=== PATIENT | male | born 1960 | race Caucasian/White ===

== ENCOUNTER 2022-11-11 16:35 | Inpatient (IN) | payer OTHER, MEDICARE ==
[2022-11-11] MEDS ORDERED: HEPARIN SODIUM 1,000 UN/ML (10ML VL) IV ONE (17:25)
--- NOTE | 2022-11-11 17:25 | ED ---
General Adult HPI - General Source: patient, EMS Mode of arrival: EMS Limitations: no limitations <Johnny Vargas - Last Filed: 11/21/22 15:48> <Ayo Ugalde - Last Filed: 11/21/22 21:27> - General Chief complaint: Nausea/Vomiting/Diarrhea Stated complaint: AFib,RBR,Back Pain Time Seen by Provider: 11/11/22 16:53 - History of Present Illness Initial comments: 62-year-old male past medical history significant for hypertension, A. fib, chronic back pain, and mechanical heart valve on Coumadin was seen at [facility] prior to arrival. Patient was seen due to nausea, vomiting, and chronic back pain. She states that he has been unable to keep anything down, including his medications. There are found his INR to be subtherapeutic at 1.3, hyponatremia 124, and hypomagnesemia at 1.1, troponin 0.046, d-dimer 2.04. During patient's stay patient also went into A. fib with RVR.. Patient rate controlled with metoprolol. Magnesium was repleted there. CT of the abdomen showed cholelithiasis without evidence of cholecystitis, hiatal hernia, in no acute process. CT PE showed no evidence of PE. Patient was then transferred here for further treatment/evaluation. Patient provided me taclopamide there. Currently denies any nausea. Complains of some abdominal pain and back pain. Denies chest pain or shortness of breath. No other complaints. (Johnny Vargas) - Related Data Home Medications Medication Instructions Recorded Confirmed Aspirin [Children's Aspirin] 81 mg PO DAILY 11/11/22 11/11/22 Lansoprazole 15 mg PO DAILY 11/11/22 11/11/22 Metoprolol Tartrate [Lopressor] 75 mg PO BID 11/11/22 11/11/22 Omeprazole 20 mg PO DAILY 11/11/22 11/11/22 Warfarin [Coumadin] 7.5 mg PO MOWEFRSA 11/11/22 11/11/22 Warfarin [Coumadin] 10 mg PO SUTUTH 11/11/22 11/11/22 amLODIPine [Norvasc] 5 mg PO DAILY 11/11/22 11/11/22 Previous Rx's Medication Instructions Recorded Albuterol Inhaler [Ventolin Hfa 2 puff INHALATION Q6H PRN #1 each 11/18/22 Inhaler] Thiamine [Vitamin B-1] 100 mg PO DAILY #30 tab 11/18/22 Allergies Allergy/AdvReac Type Severity Reaction Status Date / Time propoxyphene Allergy Rash/Hives Verified 11/11/22 19:15 [From Darvocet-N 100] acetaminophen AdvReac Rash/Hives Verified 11/11/22 19:01 [From Darvocet-N 100] amitriptyline [From Elavil] AdvReac NIGHTMARES Verified 11/11/22 19:15 hydralazine AdvReac MIGRAINES Verified 11/11/22 19:15 naproxen [From Naprosyn] AdvReac Nausea Verified 11/11/22 19:15 Review of Systems ROS Other: All systems not noted in ROS Statement are negative. <Johnny Vargas - Last Filed: 11/21/22 15:48> ROS Other: All systems not noted in ROS Statement are negative. <Ayo Ugalde - Last Filed: 11/21/22 21:27> ROS Statement: Those systems with pertinent positive or pertinent negative responses have been documented in the HPI. Past Medical History Past Medical History: Atrial Fibrillation, Coronary Artery Disease (CAD), Hypertension Additional Past Medical History / Comment(s): chronic lower back pain, History of Any Multi-Drug Resistant Organisms: None Reported Past Surgical History: Cardiac Valve Replacement, Coronary Bypass/CABG Additional Past Surgical History / Comment(s): right knee, jaw Past Psychological History: No Psychological Hx Reported Smoking Status: Former smoker Past Alcohol Use History: Daily Past Drug Use History: Marijuana <Johnny Vargas - Last Filed: 11/21/22 15:48> General Exam Limitations: no limitations General appearance: alert, in no apparent distress Respiratory exam: Present: normal lung sounds bilaterally Cardiovascular Exam: Present: regular rate, irregular rhythm GI/Abdominal exam: Present: soft (Diffuse tenderness to palpation) Neurological exam: Present: alert, oriented X3 Psychiatric exam: Present: normal affect, normal mood Skin exam: Present: warm, dry <Johnny Vargas - Last Filed: 11/21/22 15:48> Course Vital Signs 11/11/22 11/11/22 11/11/22 16:38 18:06 20:00 Temperature 97.1 F L Pulse Rate 77 98 112 H Pulse Rate [ Pulse Oximetery ] Respiratory 18 18 18 Rate Blood Pressure 109/77 120/82 121/96 Blood Pressure [Right Arm] O2 Sat by Pulse 99 97 97 Oximetry 11/11/22 11/11/22 21:44 21:48 Temperature 99.9 F H Pulse Rate 128 H Pulse Rate [ 92 Pulse Oximetery ] Respiratory 18 18 Rate Blood Pressure 138/83 Blood Pressure 151/73 [Right Arm] O2 Sat by Pulse 94 L 95 Oximetry Medical Decision Making - Lab Data Result diagrams: 11/16/22 05:09 11/17/22 04:55 <Johnny Vargas - Last Filed: 11/21/22 15:48> - Lab Data Result diagrams: 11/16/22 05:09 11/17/22 04:55 <Ayo Ugalde - Last Filed: 11/21/22 21:27> - Medical Decision Making Was pt. sent in by a medical professional or institution (Dr. PA, REGIONAL AGRONOMIST, urgent care, hospital, or retirement...) When possible be specific @ -Patient sent in by [facility] Did you speak to anyone other than the patient for history (EMS, parent, family, police, friend...)? What history was obtained from this source @ -No Did you review nursing and triage notes (agree or disagree)? Why? @ -I reviewed and agree with nursing and triage notes Were old charts reviewed (outside hosp., previous admission, EMS record, old EKG, old radiological studies, urgent care reports/EKG's, retirement records)? Report findings @ -Visit from [place] reviewed. Please see HPI for significant findings. Differential Diagnosis (chest pain, altered mental status, abdominal pain women, abdominal pain men, vaginal bleeding, weakness, fever, dyspnea, syncope, headache, dizziness, GI bleed, back pain, seizure, CVA, palpatations, mental health, musculoskeletal)? @ -Differential Palpitations Ventricular arrhythmias, atrial arrhythmias, myocardial infarction, anemia, thyrotoxicosis, electrolyte imbalance, hypokalemia, pulmonary embolism, pulmonary disease, drugs, alcohol, anxiety, stress.... This is not meant to be an all-inclusive list. EKG interpreted by me (3pts min.). @ -EKG shows A. fib without acute ST or T-wave changes name of beats per minute. QRS 106. QT/QTc 382/430. X-rays interpreted by me (1pt min.). @ -None done CT interpreted by me (1pt min.). @ -None done U/S interpreted by me (1pt. min.). @ -None done What testing was considered but not performed or refused? (CT, X-rays, U/S, labs)? Why? @ -None What meds were considered but not given or refused? Why? @ -None Did you discuss the management of the patient with other professionals (professionals i.e. , PA, REGIONAL AGRONOMIST, lab, RT, psych nurse, case management social worker, printer slotter operator, teacher, gunnery/ordnance officer, supervisor case loading)? Give summary @ -Discussed with Ysabel BOWMAN, who accepts admission to Dr. Dorado Was smoking cessation discussed for >3mins.? @ -No Was critical care preformed (if so, how long)? @ -No Were there social determinants of health that impacted care today? How? (Homelessness, low income, unemployed, alcoholism, drug addiction, transportation, low edu. Level, literacy, decrease access to med. care, snf, rehab)? @ -No Was there de-escalation of care discussed even if they declined (Discuss DNR or withdrawal of care, Hospice)? DNR status @ -No What co-morbidities impacted this encounter? (DM, HTN, Smoking, COPD, CAD, Cancer, CVA, ARF, Chemo, Hep., AIDS, mental health diagnosis, sleep apnea, morbid obesity)? @ -A. fib Was patient admitted / discharged? Hospital course, mention meds given and route, prescriptions, significant lab abnormalities, going to OR and other pertinent info. @ -Admission. Patient will be admitted for heparin administration to bring INR to therapeutic levels. Also admitted for continued pain control and antiemetics. Discussed plan of care with patient who is in agreement. Undiagnosed new problem with uncertain prognosis? @ -No Drug Therapy requiring intensive monitoring for toxicity (Heparin, Nitro, Insulin, Cardizem)? @ -Heparin Were any procedures done? @ -No Diagnosis/symptom? @ -A. fib, subtherapeutic INR. Acute, or Chronic, or Acute on Chronic? @ -Acute on chronic Uncomplicated (without systemic symptoms) or Complicated (systemic symptoms)? @ -Complicated, prior to arrival was in A. fib with RVR. Side effects of treatment? @ -No Exacerbation, Progression, or Severe Exacerbation? @ -No Poses a threat to life or bodily function? How? (Chest pain, [place], AR, pneumonia, PE, COPD, DKA, ARF, appy, cholecystitis, CVA, Diverticulitis, Homicidal, Suicidal, threat to staff... and all critical care pts) @ -Yes, A. fib with RVR ([email or web address]) - Lab Data Lab Results 11/11/22 11/11/22 11/11/22 Range/Units 17:10 17:10 17:10 WBC 6.6 (3.8-10.6) k/uL RBC 4.84 (4.30-5.90) m/uL Hgb 14.2 (13.0-17.5) gm/dL Hct 41.3 (39.0-53.0) % MCV 85.2 (80.0-100.0) fL MCH 29.4 (25.0-35.0) pg MCHC 34.5 (31.0-37.0) g/dL RDW 13.6 (11.5-15.5) % Plt Count 132 L (150-450) k/uL Estimated Plt Count (Adequate) MPV 7.8 Immature Gran % (Auto) % Absolute Nucleated RBC % Neutrophils % 87 % Lymphocytes % 7 % Monocytes % 4 % Eosinophils % 1 % Basophils % 0 % Immature Gran # X 10*3/uL Neutrophils # 5.8 (1.3-7.7) k/uL Lymphocytes # 0.4 L (1.0-4.8) k/uL Monocytes # 0.3 (0-1.0) k/uL Eosinophils # 0.1 (0-0.7) k/uL Basophils # 0.0 (0-0.2) k/uL NRBC/100 WBC Diff (0.00-0.01) X 10*3/uL Manual Slide Review RBC Morphology (Normal) PT 11.9 (9.0-12.0) sec INR 1.2 H (<1.2) APTT 34.4 H (22.0-30.0) sec Sodium 127 L (137-145) mmol/L Potassium 3.9 (3.5-5.1) mmol/L Chloride 93 L (98-107) mmol/L Carbon Dioxide 24 (22-30) mmol/L Anion Gap 10 mmol/L BUN 13 (9-20) mg/dL Creatinine 0.82 (0.66-1.25) mg/dL Est GFR (CKD-EPI) (>=60) Est GFR (CKD-EPI)AfAm >90 (>60 ml/min/1.73 sqM) Est GFR (CKD-EPI)NonAf >90 (>60 ml/min/1.73 sqM) BUN/Creatinine Ratio (12.00-20.00) Ratio Glucose 112 H (74-99) mg/dL Calcium 8.6 (8.4-10.2) mg/dL Magnesium 2.2 (1.6-2.3) mg/dL Total Bilirubin 2.7 H (0.2-1.3) mg/dL AST 47 (17-59) U/L ALT 33 (4-49) U/L Alkaline Phosphatase 57 (38-126) U/L Troponin I (0.000-0.034) ng/mL Total Protein 6.9 (6.3-8.2) g/dL Albumin 4.1 (3.5-5.0) g/dL Amylase 40 (30-110) U/L Lipase 115 (23-300) U/L Procalcitonin (0.02-0.09) ng/mL Urine Color Urine Appearance (Clear) Urine pH (5.0-8.0) Ur Specific Kathryn (1.001-1.035) Urine Protein (Negative) Urine Glucose (UA) (Negative) Urine Ketones (Negative) Urine Blood (Negative) Urine Nitrite (Negative) Urine Bilirubin (Negative) Urine Urobilinogen (<2.0) mg/dL Ur Leukocyte Esterase (Negative) Coronavirus (PCR) (Not Detectd) 11/11/22 11/11/22 11/11/22 Range/Units 17:10 20:27 23:22 WBC (3.8-10.6) k/uL RBC (4.30-5.90) m/uL Hgb (13.0-17.5) gm/dL Hct (39.0-53.0) % MCV (80.0-100.0) fL MCH (25.0-35.0) pg MCHC (31.0-37.0) g/dL RDW (11.5-15.5) % Plt Count (150-450) k/uL Estimated Plt Count (Adequate) MPV Immature Gran % (Auto) % Absolute Nucleated RBC % Neutrophils % % Lymphocytes % % Monocytes % % Eosinophils % % Basophils % % Immature Gran # X 10*3/uL Neutrophils # (1.3-7.7) k/uL Lymphocytes # (1.0-4.8) k/uL Monocytes # (0-1.0) k/uL Eosinophils # (0-0.7) k/uL Basophils # (0-0.2) k/uL NRBC/100 WBC Diff (0.00-0.01) X 10*3/uL Manual Slide Review RBC Morphology (Normal) PT (9.0-12.0) sec INR (<1.2) APTT 35.4 H (22.0-30.0) sec Sodium (137-145) mmol/L Potassium (3.5-5.1) mmol/L Chloride (98-107) mmol/L Carbon Dioxide (22-30) mmol/L Anion Gap mmol/L BUN (9-20) mg/dL Creatinine (0.66-1.25) mg/dL Est GFR (CKD-EPI) (>=60) Est GFR (CKD-EPI)AfAm (>60 ml/min/1.73 sqM) Est GFR (CKD-EPI)NonAf (>60 ml/min/1.73 sqM) BUN/Creatinine Ratio (12.00-20.00) Ratio Glucose (74-99) mg/dL Calcium (8.4-10.2) mg/dL Magnesium (1.6-2.3) mg/dL Total Bilirubin (0.2-1.3) mg/dL AST (17-59) U/L ALT (4-49) U/L Alkaline Phosphatase (38-126) U/L Troponin I 0.024 0.019 (0.000-0.034) ng/mL Total Protein (6.3-8.2) g/dL Albumin (3.5-5.0) g/dL Amylase (30-110) U/L Lipase (23-300) U/L Procalcitonin (0.02-0.09) ng/mL Urine Color Urine Appearance (Clear) Urine pH (5.0-8.0) Ur Specific Kathryn (1.001-1.035) Urine Protein (Negative) Urine Glucose (UA) (Negative) Urine Ketones (Negative) Urine Blood (Negative) Urine Nitrite (Negative) Urine Bilirubin (Negative) Urine Urobilinogen (<2.0) mg/dL Ur Leukocyte Esterase (Negative) Coronavirus (PCR) (Not Detectd) 11/11/22 11/12/22 11/12/22 Range/Units 23:22 05:29 05:29 WBC 6.43 (3.8-10.6) k/uL RBC 4.31 L (4.30-5.90) m/uL Hgb 12.4 (13.0-17.5) gm/dL Hct 36.0 L (39.0-53.0) % MCV 83.5 (80.0-100.0) fL MCH 28.8 (25.0-35.0) pg MCHC 34.4 (31.0-37.0) g/dL RDW 13.3 (11.5-15.5) % Plt Count 133 L (150-450) k/uL Estimated Plt Count (Adequate) MPV 11.0 Immature Gran % (Auto) 0.80 % Absolute Nucleated RBC 0 % Neutrophils % 84.6 % Lymphocytes % 7.5 % Monocytes % 6.8 % Eosinophils % 0 % Basophils % 0.3 % Immature Gran # 0.05 X 10*3/uL Neutrophils # 5.44 (1.3-7.7) k/uL Lymphocytes # 0.48 L (1.0-4.8) k/uL Monocytes # 0.44 (0-1.0) k/uL Eosinophils # 0 L (0-0.7) k/uL Basophils # 0.02 (0-0.2) k/uL NRBC/100 WBC Diff 0 (0.00-0.01) X 10*3/uL Manual Slide Review RBC Morphology (Normal) PT 12.0 (9.0-12.0) sec INR 1.2 H (<1.2) APTT 37.3 H (22.0-30.0) sec Sodium (137-145) mmol/L Potassium (3.5-5.1) mmol/L Chloride (98-107) mmol/L Carbon Dioxide (22-30) mmol/L Anion Gap mmol/L BUN (9-20) mg/dL Creatinine (0.66-1.25) mg/dL Est GFR (CKD-EPI) (>=60) Est GFR (CKD-EPI)AfAm (>60 ml/min/1.73 sqM) Est GFR (CKD-EPI)NonAf (>60 ml/min/1.73 sqM) BUN/Creatinine Ratio (12.00-20.00) Ratio Glucose (74-99) mg/dL Calcium (8.4-10.2) mg/dL Magnesium (1.6-2.3) mg/dL Total Bilirubin (0.2-1.3) mg/dL AST (17-59) U/L ALT (4-49) U/L Alkaline Phosphatase (38-126) U/L Troponin I 0.021 (0.000-0.034) ng/mL Total Protein (6.3-8.2) g/dL Albumin (3.5-5.0) g/dL Amylase (30-110) U/L Lipase (23-300) U/L Procalcitonin (0.02-0.09) ng/mL Urine Color Urine Appearance (Clear) Urine pH (5.0-8.0) Ur Specific Kathryn (1.001-1.035) Urine Protein (Negative) Urine Glucose (UA) (Negative) Urine Ketones (Negative) Urine Blood (Negative) Urine Nitrite (Negative) Urine Bilirubin (Negative) Urine Urobilinogen (<2.0) mg/dL Ur Leukocyte Esterase (Negative) Coronavirus (PCR) (Not Detectd) 11/12/22 11/12/22 11/12/22 Range/Units 14:17 14:26 21:30 WBC (3.8-10.6) k/uL RBC (4.30-5.90) m/uL Hgb (13.0-17.5) gm/dL Hct (39.0-53.0) % MCV (80.0-100.0) fL MCH (25.0-35.0) pg MCHC (31.0-37.0) g/dL RDW (11.5-15.5) % Plt Count (150-450) k/uL Estimated Plt Count (Adequate) MPV Immature Gran % (Auto) % Absolute Nucleated RBC % Neutrophils % % Lymphocytes % % Monocytes % % Eosinophils % % Basophils % % Immature Gran # X 10*3/uL Neutrophils # (1.3-7.7) k/uL Lymphocytes # (1.0-4.8) k/uL Monocytes # (0-1.0) k/uL Eosinophils # (0-0.7) k/uL Basophils # (0-0.2) k/uL NRBC/100 WBC Diff (0.00-0.01) X 10*3/uL Manual Slide Review RBC Morphology (Normal) PT (9.0-12.0) sec INR (<1.2) APTT 37.1 H 44.2 H (22.0-30.0) sec Sodium (137-145) mmol/L Potassium (3.5-5.1) mmol/L Chloride (98-107) mmol/L Carbon Dioxide (22-30) mmol/L Anion Gap mmol/L BUN (9-20) mg/dL Creatinine (0.66-1.25) mg/dL Est GFR (CKD-EPI) (>=60) Est GFR (CKD-EPI)AfAm (>60 ml/min/1.73 sqM) Est GFR (CKD-EPI)NonAf (>60 ml/min/1.73 sqM) BUN/Creatinine Ratio (12.00-20.00) Ratio Glucose (74-99) mg/dL Calcium (8.4-10.2) mg/dL Magnesium (1.6-2.3) mg/dL Total Bilirubin (0.2-1.3) mg/dL AST (17-59) U/L ALT (4-49) U/L Alkaline Phosphatase (38-126) U/L Troponin I (0.000-0.034) ng/mL Total Protein (6.3-8.2) g/dL Albumin (3.5-5.0) g/dL Amylase (30-110) U/L Lipase (23-300) U/L Procalcitonin (0.02-0.09) ng/mL Urine Color Urine Appearance (Clear) Urine pH (5.0-8.0) Ur Specific Kathryn (1.001-1.035) Urine Protein (Negative) Urine Glucose (UA) (Negative) Urine Ketones (Negative) Urine Blood (Negative) Urine Nitrite (Negative) Urine Bilirubin (Negative) Urine Urobilinogen (<2.0) mg/dL Ur Leukocyte Esterase (Negative) Coronavirus (PCR) Not Detected (Not Detectd) 11/13/22 11/13/22 11/13/22 Range/Units 05:32 05:32 05:32 WBC 4.85 (3.8-10.6) k/uL RBC 4.13 L (4.30-5.90) m/uL Hgb 11.8 L (13.0-17.5) gm/dL Hct 34.2 L (39.0-53.0) % MCV 82.8 (80.0-100.0) fL MCH 28.6 (25.0-35.0) pg MCHC 34.5 (31.0-37.0) g/dL RDW 13.4 (11.5-15.5) % Plt Count 124 L (150-450) k/uL Estimated Plt Count (Adequate) MPV 12.0 Immature Gran % (Auto) 1.00 % Absolute Nucleated RBC 0 % Neutrophils % 83.8 % Lymphocytes % 6.6 % Monocytes % 8.2 % Eosinophils % 0 % Basophils % 0.4 % Immature Gran # 0.05 X 10*3/uL Neutrophils # 4.06 (1.3-7.7) k/uL Lymphocytes # 0.32 L (1.0-4.8) k/uL Monocytes # 0.40 (0-1.0) k/uL Eosinophils # 0 L (0-0.7) k/uL Basophils # 0.02 (0-0.2) k/uL NRBC/100 WBC Diff 0 (0.00-0.01) X 10*3/uL Manual Slide Review RBC Morphology (Normal) PT 11.6 (9.0-12.0) sec INR 1.1 (<1.2) APTT 34.8 H (22.0-30.0) sec Sodium (137-145) mmol/L Potassium (3.5-5.1) mmol/L Chloride (98-107) mmol/L Carbon Dioxide (22-30) mmol/L Anion Gap mmol/L BUN (9-20) mg/dL Creatinine (0.66-1.25) mg/dL Est GFR (CKD-EPI) (>=60) Est GFR (CKD-EPI)AfAm (>60 ml/min/1.73 sqM) Est GFR (CKD-EPI)NonAf (>60 ml/min/1.73 sqM) BUN/Creatinine Ratio (12.00-20.00) Ratio Glucose (74-99) mg/dL Calcium (8.4-10.2) mg/dL Magnesium (1.6-2.3) mg/dL Total Bilirubin (0.2-1.3) mg/dL AST (17-59) U/L ALT (4-49) U/L Alkaline Phosphatase (38-126) U/L Troponin I (0.000-0.034) ng/mL Total Protein (6.3-8.2) g/dL Albumin (3.5-5.0) g/dL Amylase (30-110) U/L Lipase (23-300) U/L Procalcitonin 0.87 H (0.02-0.09) ng/mL Urine Color Urine Appearance (Clear) Urine pH (5.0-8.0) Ur Specific Kathryn (1.001-1.035) Urine Protein (Negative) Urine Glucose (UA) (Negative) Urine Ketones (Negative) Urine Blood (Negative) Urine Nitrite (Negative) Urine Bilirubin (Negative) Urine Urobilinogen (<2.0) mg/dL Ur Leukocyte Esterase (Negative) Coronavirus (PCR) (Not Detectd) 11/13/22 11/13/22 11/13/22 Range/Units 05:32 12:13 16:10 WBC (3.8-10.6) k/uL RBC (4.30-5.90) m/uL Hgb (13.0-17.5) gm/dL Hct (39.0-53.0) % MCV (80.0-100.0) fL MCH (25.0-35.0) pg MCHC (31.0-37.0) g/dL RDW (11.5-15.5) % Plt Count (150-450) k/uL Estimated Plt Count (Adequate) MPV Immature Gran % (Auto) % Absolute Nucleated RBC % Neutrophils % % Lymphocytes % % Monocytes % % Eosinophils % % Basophils % % Immature Gran # X 10*3/uL Neutrophils # (1.3-7.7) k/uL Lymphocytes # (1.0-4.8) k/uL Monocytes # (0-1.0) k/uL Eosinophils # (0-0.7) k/uL Basophils # (0-0.2) k/uL NRBC/100 WBC Diff (0.00-0.01) X 10*3/uL Manual Slide Review RBC Morphology (Normal) PT (9.0-12.0) sec INR (<1.2) APTT 37.8 H (22.0-30.0) sec Sodium 126 L (137-145) mmol/L Potassium 3.4 L (3.5-5.1) mmol/L Chloride 93 L (98-107) mmol/L Carbon Dioxide 20.3 L (22-30) mmol/L Anion Gap 12.70 H mmol/L BUN 13.6 (9-20) mg/dL Creatinine 0.8 (0.66-1.25) mg/dL Est GFR (CKD-EPI) 101 (>=60) Est GFR (CKD-EPI)AfAm (>60 ml/min/1.73 sqM) Est GFR (CKD-EPI)NonAf (>60 ml/min/1.73 sqM) BUN/Creatinine Ratio 17.00 (12.00-20.00) Ratio Glucose 97 (74-99) mg/dL Calcium 8.0 L (8.4-10.2) mg/dL Magnesium (1.6-2.3) mg/dL Total Bilirubin (0.2-1.3) mg/dL AST (17-59) U/L ALT (4-49) U/L Alkaline Phosphatase (38-126) U/L Troponin I (0.000-0.034) ng/mL Total Protein (6.3-8.2) g/dL Albumin (3.5-5.0) g/dL Amylase (30-110) U/L Lipase (23-300) U/L Procalcitonin (0.02-0.09) ng/mL Urine Color Yellow Urine Appearance Clear (Clear) Urine pH 6.0 (5.0-8.0) Ur Specific Kathryn 1.010 (1.001-1.035) Urine Protein Negative (Negative) Urine Glucose (UA) Negative (Negative) Urine Ketones Negative (Negative) Urine Blood Negative (Negative) Urine Nitrite Negative (Negative) Urine Bilirubin Negative (Negative) Urine Urobilinogen >12.0 (<2.0) mg/dL Ur Leukocyte Esterase Negative (Negative) Coronavirus (PCR) (Not Detectd) 11/13/22 11/14/22 11/14/22 Range/Units 19:36 05:47 05:47 WBC 4.73 (3.8-10.6) k/uL RBC 3.90 L (4.30-5.90) m/uL Hgb 11.0 L (13.0-17.5) gm/dL Hct 33.3 L (39.0-53.0) % MCV 85.4 (80.0-100.0) fL MCH 28.2 (25.0-35.0) pg MCHC 33.0 (31.0-37.0) g/dL RDW 13.5 (11.5-15.5) % Plt Count 129 L (150-450) k/uL Estimated Plt Count (Adequate) MPV 12.4 H Immature Gran % (Auto) 1.10 % Absolute Nucleated RBC 0 % Neutrophils % 77.4 % Lymphocytes % 11.8 % Monocytes % 8.9 % Eosinophils % 0.4 % Basophils % 0.4 % Immature Gran # 0.05 X 10*3/uL Neutrophils # 3.66 (1.3-7.7) k/uL Lymphocytes # 0.56 L (1.0-4.8) k/uL Monocytes # 0.42 (0-1.0) k/uL Eosinophils # 0.02 L (0-0.7) k/uL Basophils # 0.02 (0-0.2) k/uL NRBC/100 WBC Diff 0 (0.00-0.01) X 10*3/uL Manual Slide Review RBC Morphology (Normal) PT 12.4 H (9.0-12.0) sec INR 1.2 H (<1.2) APTT 48.8 H 54.4 H (22.0-30.0) sec Sodium (137-145) mmol/L Potassium (3.5-5.1) mmol/L Chloride (98-107) mmol/L Carbon Dioxide (22-30) mmol/L Anion Gap mmol/L BUN (9-20) mg/dL Creatinine (0.66-1.25) mg/dL Est GFR (CKD-EPI) (>=60) Est GFR (CKD-EPI)AfAm (>60 ml/min/1.73 sqM) Est GFR (CKD-EPI)NonAf (>60 ml/min/1.73 sqM) BUN/Creatinine Ratio (12.00-20.00) Ratio Glucose (74-99) mg/dL Calcium (8.4-10.2) mg/dL Magnesium (1.6-2.3) mg/dL Total Bilirubin (0.2-1.3) mg/dL AST (17-59) U/L ALT (4-49) U/L Alkaline Phosphatase (38-126) U/L Troponin I (0.000-0.034) ng/mL Total Protein (6.3-8.2) g/dL Albumin (3.5-5.0) g/dL Amylase (30-110) U/L Lipase (23-300) U/L Procalcitonin (0.02-0.09) ng/mL Urine Color Urine Appearance (Clear) Urine pH (5.0-8.0) Ur Specific Kathryn (1.001-1.035) Urine Protein (Negative) Urine Glucose (UA) (Negative) Urine Ketones (Negative) Urine Blood (Negative) Urine Nitrite (Negative) Urine Bilirubin (Negative) Urine Urobilinogen (<2.0) mg/dL Ur Leukocyte Esterase (Negative) Coronavirus (PCR) (Not Detectd) 11/14/22 11/15/22 11/15/22 Range/Units 05:47 06:44 06:44 WBC (3.8-10.6) k/uL RBC (4.30-5.90) m/uL Hgb (13.0-17.5) gm/dL Hct (39.0-53.0) % MCV (80.0-100.0) fL MCH (25.0-35.0) pg MCHC (31.0-37.0) g/dL RDW (11.5-15.5) % Plt Count (150-450) k/uL Estimated Plt Count (Adequate) MPV Immature Gran % (Auto) % Absolute Nucleated RBC % Neutrophils % % Lymphocytes % % Monocytes % % Eosinophils % % Basophils % % Immature Gran # X 10*3/uL Neutrophils # (1.3-7.7) k/uL Lymphocytes # (1.0-4.8) k/uL Monocytes # (0-1.0) k/uL Eosinophils # (0-0.7) k/uL Basophils # (0-0.2) k/uL NRBC/100 WBC Diff (0.00-0.01) X 10*3/uL Manual Slide Review RBC Morphology (Normal) PT 13.8 H (9.0-12.0) sec INR 1.4 H (<1.2) APTT 49.4 H (22.0-30.0) sec Sodium 131 L (137-145) mmol/L Potassium 3.6 (3.5-5.1) mmol/L Chloride 97 (98-107) mmol/L Carbon Dioxide 22.9 (22-30) mmol/L Anion Gap 11.10 mmol/L BUN 8.0 L (9-20) mg/dL Creatinine 0.8 (0.66-1.25) mg/dL Est GFR (CKD-EPI) 101 (>=60) Est GFR (CKD-EPI)AfAm (>60 ml/min/1.73 sqM) Est GFR (CKD-EPI)NonAf (>60 ml/min/1.73 sqM) BUN/Creatinine Ratio 10.00 L (12.00-20.00) Ratio Glucose 104 (74-99) mg/dL Calcium 8.0 L (8.4-10.2) mg/dL Magnesium (1.6-2.3) mg/dL Total Bilirubin (0.2-1.3) mg/dL AST (17-59) U/L ALT (4-49) U/L Alkaline Phosphatase (38-126) U/L Troponin I (0.000-0.034) ng/mL Total Protein (6.3-8.2) g/dL Albumin (3.5-5.0) g/dL Amylase (30-110) U/L Lipase (23-300) U/L Procalcitonin (0.02-0.09) ng/mL Urine Color Urine Appearance (Clear) Urine pH (5.0-8.0) Ur Specific Kathryn (1.001-1.035) Urine Protein (Negative) Urine Glucose (UA) (Negative) Urine Ketones (Negative) Urine Blood (Negative) Urine Nitrite (Negative) Urine Bilirubin (Negative) Urine Urobilinogen (<2.0) mg/dL Ur Leukocyte Esterase (Negative) Coronavirus (PCR) (Not Detectd) 11/15/22 11/15/22 11/16/22 Range/Units 06:44 06:44 05:09 WBC 4.72 (3.8-10.6) k/uL RBC 4.15 L (4.30-5.90) m/uL Hgb 11.8 L (13.0-17.5) gm/dL Hct 34.8 L (39.0-53.0) % MCV 83.9 (80.0-100.0) fL MCH 28.4 (25.0-35.0) pg MCHC 33.9 (31.0-37.0) g/dL RDW 13.5 (11.5-15.5) % Plt Count 172 (150-450) k/uL Estimated Plt Count Adequate (Adequate) MPV 12.5 H Immature Gran % (Auto) 0.60 % Absolute Nucleated RBC 0 % Neutrophils % 80.3 % Lymphocytes % 10.2 % Monocytes % 7.2 % Eosinophils % 1.3 % Basophils % 0.4 % Immature Gran # 0.03 X 10*3/uL Neutrophils # 3.79 (1.3-7.7) k/uL Lymphocytes # 0.48 L (1.0-4.8) k/uL Monocytes # 0.34 (0-1.0) k/uL Eosinophils # 0.06 (0-0.7) k/uL Basophils # 0.02 (0-0.2) k/uL NRBC/100 WBC Diff 0 (0.00-0.01) X 10*3/uL Manual Slide Review Morph Only RBC Morphology Normal (Normal) PT (9.0-12.0) sec INR (<1.2) APTT 45.1 H (22.0-30.0) sec Sodium 132 L (137-145) mmol/L Potassium 3.3 L (3.5-5.1) mmol/L Chloride 97 (98-107) mmol/L Carbon Dioxide 22.8 (22-30) mmol/L Anion Gap 12.20 H mmol/L BUN 5.1 L (9-20) mg/dL Creatinine 0.7 (0.66-1.25) mg/dL Est GFR (CKD-EPI) 105 (>=60) Est GFR (CKD-EPI)AfAm (>60 ml/min/1.73 sqM) Est GFR (CKD-EPI)NonAf (>60 ml/min/1.73 sqM) BUN/Creatinine Ratio 7.29 L (12.00-20.00) Ratio Glucose 103 (74-99) mg/dL Calcium 8.7 (8.4-10.2) mg/dL Magnesium (1.6-2.3) mg/dL Total Bilirubin (0.2-1.3) mg/dL AST (17-59) U/L ALT (4-49) U/L Alkaline Phosphatase (38-126) U/L Troponin I (0.000-0.034) ng/mL Total Protein (6.3-8.2) g/dL Albumin (3.5-5.0) g/dL Amylase (30-110) U/L Lipase (23-300) U/L Procalcitonin (0.02-0.09) ng/mL Urine Color Urine Appearance (Clear) Urine pH (5.0-8.0) Ur Specific Kathryn (1.001-1.035) Urine Protein (Negative) Urine Glucose (UA) (Negative) Urine Ketones (Negative) Urine Blood (Negative) Urine Nitrite (Negative) Urine Bilirubin (Negative) Urine Urobilinogen (<2.0) mg/dL Ur Leukocyte Esterase (Negative) Coronavirus (PCR) (Not Detectd) 11/16/22 11/16/22 11/16/22 Range/Units 05:09 05:09 05:09 WBC 4.09 L (3.8-10.6) k/uL RBC 3.89 L (4.30-5.90) m/uL Hgb 11.0 L (13.0-17.5) gm/dL Hct 33.1 L (39.0-53.0) % MCV 85.1 (80.0-100.0) fL MCH 28.3 (25.0-35.0) pg MCHC 33.2 (31.0-37.0) g/dL RDW 13.6 (11.5-15.5) % Plt Count 200 (150-450) k/uL Estimated Plt Count Adequate (Adequate) MPV 12.2 Immature Gran % (Auto) 0.70 % Absolute Nucleated RBC 0 % Neutrophils % 73.8 % Lymphocytes % 16.4 % Monocytes % 7.6 % Eosinophils % 1.0 % Basophils % 0.5 % Immature Gran # 0.03 X 10*3/uL Neutrophils # 3.02 (1.3-7.7) k/uL Lymphocytes # 0.67 L (1.0-4.8) k/uL Monocytes # 0.31 (0-1.0) k/uL Eosinophils # 0.04 (0-0.7) k/uL Basophils # 0.02 (0-0.2) k/uL NRBC/100 WBC Diff 0 (0.00-0.01) X 10*3/uL Manual Slide Review Morph Only RBC Morphology Normal (Normal) PT 15.4 H (9.0-12.0) sec INR 1.5 H (<1.2) APTT (22.0-30.0) sec Sodium (137-145) mmol/L Potassium (3.5-5.1) mmol/L Chloride (98-107) mmol/L Carbon Dioxide (22-30) mmol/L Anion Gap mmol/L BUN (9-20) mg/dL Creatinine (0.66-1.25) mg/dL Est GFR (CKD-EPI) (>=60) Est GFR (CKD-EPI)AfAm (>60 ml/min/1.73 sqM) Est GFR (CKD-EPI)NonAf (>60 ml/min/1.73 sqM) BUN/Creatinine Ratio (12.00-20.00) Ratio Glucose (74-99) mg/dL Calcium (8.4-10.2) mg/dL Magnesium (1.6-2.3) mg/dL Total Bilirubin (0.2-1.3) mg/dL AST (17-59) U/L ALT (4-49) U/L Alkaline Phosphatase (38-126) U/L Troponin I (0.000-0.034) ng/mL Total Protein (6.3-8.2) g/dL Albumin (3.5-5.0) g/dL Amylase (30-110) U/L Lipase (23-300) U/L Procalcitonin 0.28 H (0.02-0.09) ng/mL Urine Color Urine Appearance (Clear) Urine pH (5.0-8.0) Ur Specific Kathryn (1.001-1.035) Urine Protein (Negative) Urine Glucose (UA) (Negative) Urine Ketones (Negative) Urine Blood (Negative) Urine Nitrite (Negative) Urine Bilirubin (Negative) Urine Urobilinogen (<2.0) mg/dL Ur Leukocyte Esterase (Negative) Coronavirus (PCR) (Not Detectd) 11/16/22 Range/Units 05:09 WBC (3.8-10.6) k/uL RBC (4.30-5.90) m/uL Hgb (13.0-17.5) gm/dL Hct (39.0-53.0) % MCV (80.0-100.0) fL MCH (25.0-35.0) pg MCHC (31.0-37.0) g/dL RDW (11.5-15.5) % Plt Count (150-450) k/uL Estimated Plt Count (Adequate) MPV Immature Gran % (Auto) % Absolute Nucleated RBC % Neutrophils % % Lymphocytes % % Monocytes % % Eosinophils % % Basophils % % Immature Gran # X 10*3/uL Neutrophils # (1.3-7.7) k/uL Lymphocytes # (1.0-4.8) k/uL Monocytes # (0-1.0) k/uL Eosinophils # (0-0.7) k/uL Basophils # (0-0.2) k/uL NRBC/100 WBC Diff (0.00-0.01) X 10*3/uL Manual Slide Review RBC Morphology (Normal) PT (9.0-12.0) sec INR (<1.2) APTT (22.0-30.0) sec Sodium 132 L (137-145) mmol/L Potassium 3.4 L (3.5-5.1) mmol/L Chloride 96 (98-107) mmol/L Carbon Dioxide 22.2 (22-30) mmol/L Anion Gap 13.80 H mmol/L BUN 4.3 L (9-20) mg/dL Creatinine 0.8 (0.66-1.25) mg/dL Est GFR (CKD-EPI) 101 (>=60) Est GFR (CKD-EPI)AfAm (>60 ml/min/1.73 sqM) Est GFR (CKD-EPI)NonAf (>60 ml/min/1.73 sqM) BUN/Creatinine Ratio 5.38 L (12.00-20.00) Ratio Glucose 107 (74-99) mg/dL Calcium 8.7 (8.4-10.2) mg/dL Magnesium (1.6-2.3) mg/dL Total Bilirubin (0.2-1.3) mg/dL AST (17-59) U/L ALT (4-49) U/L Alkaline Phosphatase (38-126) U/L Troponin I (0.000-0.034) ng/mL Total Protein (6.3-8.2) g/dL Albumin (3.5-5.0) g/dL Amylase (30-110) U/L Lipase (23-300) U/L Procalcitonin (0.02-0.09) ng/mL Urine Color Urine Appearance (Clear) Urine pH (5.0-8.0) Ur Specific Kathryn (1.001-1.035) Urine Protein (Negative) Urine Glucose (UA) (Negative) Urine Ketones (Negative) Urine Blood (Negative) Urine Nitrite (Negative) Urine Bilirubin (Negative) Urine Urobilinogen (<2.0) mg/dL Ur Leukocyte Esterase (Negative) Coronavirus (PCR) (Not Detectd) Disposition <Johnny Vargas - Last Filed: 11/21/22 15:48> <Ayo Ugalde - Last Filed: 11/21/22 21:27> Clinical Impression: Afib, Subtherapeutic anticoagulation Disposition: ADMITTED IP TO THIS HOSP
[2022-11-11 17:33] LABS: Basophils % (A) 0 %; Eosinophils # (A) 0.1 k/uL (0-0.7); Eosinophils % (A) 1 %; HCT 41.3 % (39.0-53.0); HGB 14.2 gm/dL (13.0-17.5); Lymphocytes # (A) 0.4 k/uL (1.0-4.8); Lymphocytes % (A) 7 %; MCH 29.4 pg (25.0-35.0); MCHC 34.5 g/dL (31.0-37.0); MCV 85.2 fL (80.0-100.0); Mean Platelet Volume 7.8; Monocytes # (A) 0.3 k/uL (0-1.0); Monocytes % (A) 4 %; Neutrophils # (A) 5.8 k/uL (1.3-7.7); Neutrophils % (A) 87 %; Platelet Count 132 k/uL (150-450); RBC 4.84 m/uL (4.30-5.90); RDW 13.6 % (11.5-15.5); WBC 6.6 k/uL (3.8-10.6)
[2022-11-11] MEDS ORDERED: HYDROmorphone 0.5 MG/0.5 ML SYRINGE IVP PRN (17:37)
[2022-11-11] MEDS ORDERED: NALOXONE 0.4 MG/ML 1 ML VIAL IV PRN (17:37)
[2022-11-11] MEDS ORDERED: IBUPROFEN 400 MG TAB PO PRN (17:37)
[2022-11-11] MEDS ORDERED: ONDANSETRON 4 MG/2 ML VIAL IVP PRN (17:37)
[2022-11-11 17:41] LABS: INR 1.2 (<1.2); Partial Thromboplastin Time 34.4 sec (22.0-30.0); Prothrombin Time 11.9 sec (9.0-12.0)
[2022-11-11 17:43] LABS: ALT 33 U/L (4-49); AST 47 U/L (17-59); African American GFR (CKD) >90 (>60 ml/min/1.73 sqM); Albumin 4.1 g/dL (3.5-5.0); Alkaline Phosphatase 57 U/L (38-126); Amylase 40 U/L (30-110); Anion Gap 10 mmol/L; Blood Urea Nitrogen 13 mg/dL (9-20); Calcium 8.6 mg/dL (8.4-10.2); Carbon Dioxide 24 mmol/L (22-30); Chloride 93 mmol/L (98-107); Glucose 112 mg/dL (74-99); Lipase 115 U/L (23-300); Magnesium 2.2 mg/dL (1.6-2.3); Non-African American GFR(CKD) >90 (>60 ml/min/1.73 sqM); Potassium 3.9 mmol/L (3.5-5.1); Sodium 127 mmol/L (137-145); Total Bilirubin 2.7 mg/dL (0.2-1.3); Total Protein 6.9 g/dL (6.3-8.2)
[2022-11-11] MEDS: HEPARIN SOD,PORK IN 0.45% NACL 25,000 UNIT in 0.45% NACL 1 250ML.BAG IV SCH (18:00)
[2022-11-11] MEDS: SODIUM CHLORIDE 0.9% 1,000 ML IV SCH (18:07)
[2022-11-11] MEDS: HYDROmorphone 1 MG/ML 1 ML SYRINGE IVP PRN ×2 (18:09→22:50)
[2022-11-11] MEDS ORDERED: LORazepam 2 MG/ML INJ IV PRN ×3 (21:11)
[2022-11-11] MEDS ORDERED: THIAMINE 100 MG/ML 2 ML VIAL IM STA (21:11)
[2022-11-11] MEDS: METOPROLOL TARTRATE 25 MG TAB PO SCH (21:32)
[2022-11-11] MEDS: PANTOPRAZOLE 40 MG/10 ML VIAL IVP SCH (21:37)
[2022-11-12] MEDS: HEPARIN SODIUM 1,000 UN/ML (10ML VL) IV PRN ×2 (00:14→09:10)
[2022-11-12] MEDS: HYDROmorphone 1 MG/ML 1 ML SYRINGE IVP PRN ×4 (04:33→21:10)
[2022-11-12 06:01] LABS: INR 1.2 (<1.2); Partial Thromboplastin Time 37.3 sec (22.0-30.0)
[2022-11-12] MEDS: SODIUM CHLORIDE 0.9% 1,000 ML IV SCH ×2 (06:38→22:07)
[2022-11-12] MEDS: THIAMINE 100 MG TAB PO SCH (09:03)
[2022-11-12] MEDS: METOPROLOL TARTRATE 25 MG TAB PO SCH ×2 (09:03→21:10)
[2022-11-12] MEDS: amLODIPine 5 MG TAB PO SCH (09:03)
[2022-11-12] MEDS: ASPIRIN 81 MG PO SCH (09:03)
[2022-11-12] MEDS: PANTOPRAZOLE 40 MG/10 ML VIAL IVP SCH ×2 (09:03→21:10)
[2022-11-12 09:53] LABS: Basophils # (A) 0.02 X 10*3/uL (0.00-0.10); Basophils % (A) 0.3 %; Eosinophils # (A) 0 X 10*3/uL (0.04-0.35); Eosinophils % (A) 0 %; HGB 12.4 d/dL (12.0-15.0); Lymphocytes # (A) 0.48 X 10*3/uL (0.90-5.00); Lymphocytes % (A) 7.5 %; MCH 28.8 pg (27.0-32.0); MCHC 34.4 d/dL (32.0-37.0); MCV 83.5 FL (80.0-97.0); Monocytes # (A) 0.44 X 10*3/uL (0.20-1.00); Monocytes % (A) 6.8 %; NRBC Per 100 WBC 0 X 10*3/uL (0.00-0.01); Neutrophils # (A) 5.44 X 10*3/uL (1.80-7.70); Neutrophils % (A) 84.6 %; Platelet Count 133 X 10*3/uL (140-440); RBC 4.31 X 10*6/uL (4.40-5.60); RDW 13.3 % (11.5-14.5); WBC 6.43 X 10*3/uL (4.50-10.00)
--- NOTE | 2022-11-12 10:54 | P.CRDCN ---
History of Present Illness History of present illness: HISTORY OF PRESENT ILLNESS: This is a 62-year-old male with a past medical history significant for atrial fibrillation after his open-heart surgery, aortic root repair, and previous valve replacement (appears to be mechanical aortic valve and bioprosthetic mitral valve, however report not available at this time). 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 We have been asked to see the patient in consultation for subtherapeutic INR and atrial fibrillation. Patient examined at the bedside. Patient states on he began feeling unwell. He states that he has been having some epigastric tenderness. He reports nausea and throwing up since . He states he has been unable to keep his medications down. Patient was found to have subtherapeutic INR 1.2. Patient states his INR has been therapeutic and he generally has very good control over his INR. He denies any chest pain or pressure. Denies any SOB. He reports that his abdomen feels dis tended this morning and his stomach feels sore from throwing up. Patient states he is a former cigarette smoker and quit smoking approximately 10 years ago. He reports occasional alcohol use. * EKG reveals atrial fibrillation with controlled ventricular rate * Laboratory data: WBC 6.43. Hemoglobin 12.4. Platelet count 133. INR 1.2. Sodium 127. Potassium 3.9. BUN 13. Creatinine 0.82. Troponin negative 3. * Current home cardiac medications include aspirin 81 mg daily, metoprolol tartrate 75 mg twice a day, amlodipine 5 mg daily, lisinopril 40 mg at night, warfarin 7.5 mg Saturday and Saturday and 10 mg Saturday REVIEW OF SYSTEMS: At the time of my exam: CONSTITUTIONAL: Denies fever or chills. HEENT: Denies blurred vision, vision changes, or eye pain. Denies hemoptysis CARDIOVASCULAR: Denies chest pain. Denies orthopnea. Denies PND. Denies palpitations RESPIRATORY: Denies shortness of breath. GASTROINTESTINAL: Denies abdominal pain. Denies nausea or vomiting. HEMATOLOGIC: Denies bleeding disorders. GENITOURINARY: Denies any blood in urine. SKIN: Denies pruitis. Denies rash. PHYSICAL EXAM: VITAL SIGNS: Reviewed. GENERAL: Well-developed in no acute distress. HEENT: Head is normocephalic. Pupils are equal, round. Sclerae anicteric. Mucous membranes of the mouth are moist. Neck supple. No JVD or thyromegaly LUNGS: Respirations even and unlabored. Lungs essentially clear to auscultation bilaterally. HEART: Irregular rate and rhythm. S1 and S2 heard. ABDOMEN: Soft. Distended. Nontender. EXTREMITIES: Normal range of motion. No clubbing or cyanosis. Peripheral pulses intact. No lower extremity edema NEUROLOGIC: Awake and alert. Oriented x 3. ASSESSMENT: Abdominal pain with nausea and vomiting Subtherapeutic INR, unable to keep medications down at home due to vomiting Previous valve replacement, appears to be mechanical aortic valve and bioprosthetic mitral valve, however patient's records unavailable at this time, [facility], 2019 Persistent atrial fibrillation Hypertension Former nicotine dependence, patient quit smoking 10 years ago PLAN: Obtain 2D echo to assess cardiac structure and function Continue Coumadin. Monitor INR. Continue Heparin drip until INR is at least 2.5 Consult GI for evaluation. Patient may require endoscopy. If endoscopy is recommend, ideally to perform now as INR is subtherapeutic. However will defer decision to GI team Resume additional home cardiac medications Further recommendations pending patient's course Nurse practitioner note has been reviewed by physician. Signing provider agrees with the documented findings, assessment, and plan of care. Dr. Venegas addendum Patient was personally seen by me. The case was discussed in detail with the nurse practitioner who helped with the above documentation. I agree with this assessment and plan. Past Medical History Past Medical History: Atrial Fibrillation, Coronary Artery Disease (CAD), Hypertension Additional Past Medical History / Comment(s): chronic lower back pain, History of Any Multi-Drug Resistant Organisms: None Reported Past Surgical History: Cardiac Valve Replacement, Coronary Bypass/CABG Additional Past Surgical History / Comment(s): right knee, jaw Past Psychological History: No Psychological Hx Reported Smoking Status: Former smoker Past Alcohol Use History: Daily Past Drug Use History: Marijuana Medications and Allergies Home Medications Medication Instructions Recorded Confirmed Type Aspirin [Children's Aspirin] 81 mg PO DAILY 11/11/22 11/11/22 History Lansoprazole 15 mg PO DAILY 11/11/22 11/11/22 History Metoprolol Tartrate [Lopressor] 75 mg PO BID 11/11/22 11/11/22 History Omeprazole 20 mg PO DAILY 11/11/22 11/11/22 History Warfarin [Coumadin] 7.5 mg PO MOWEFRSA 11/11/22 11/11/22 History Warfarin [Coumadin] 10 mg PO SUTUTH 11/11/22 11/11/22 History amLODIPine [Norvasc] 5 mg PO DAILY 11/11/22 11/11/22 History lisinopriL 40 mg PO HS 11/11/22 11/11/22 History Allergies Allergy/AdvReac Type Severity Reaction Status Date / Time propoxyphene Allergy Rash/Hives Verified 11/11/22 19:15 [From Darvocet-N 100] acetaminophen AdvReac Rash/Hives Verified 11/11/22 19:01 [From Darvocet-N 100] amitriptyline [From Elavil] AdvReac NIGHTMARES Verified 11/11/22 19:15 hydralazine AdvReac MIGRAINES Verified 11/11/22 19:15 naproxen [From Naprosyn] AdvReac Nausea Verified 11/11/22 19:15 Physical Exam Vitals: Vital Signs Temp Pulse Pulse Resp BP BP Pulse Ox 11/12/22 02:41 98.4 F 91 17 120/66 97 11/11/22 21:48 99.9 F H 92 18 151/73 95 11/11/22 21:44 128 H 18 138/83 94 L 11/11/22 20:00 112 H 18 121/96 97 11/11/22 18:06 98 18 120/82 97 11/11/22 16:38 97.1 F L 77 18 109/77 99 Intake and Output 11/11/22 11/12/22 11/12/22 22:59 06:59 14:59 Intake Total 61.667 Balance 61.667 Intake: Intake, IV Titration 61.667 Amount Heparin Sod,Pork in 0.45% 61.667 NaCl 25,000 unit In 0.45 % NaCl 1 250ml.bag @ 11. 982 UNITS/KG/HR 10 mls/hr IV .Q24H ROB Rx#: [id number] Other: # Voids 1 1 # Bowel Movements 1 Weight 83.461 kg Results 11/12/22 05:29 07/16/23 17:10 Cardiac Enzymes 11/11/22 11/11/22 11/11/22 Range/Units 17:10 17:10 20:27 AST 47 (17-59) U/L Troponin I 0.024 0.019 (0.000-0.034) ng/mL 11/11/22 Range/Units 23:22 AST (17-59) U/L Troponin I 0.021 (0.000-0.034) ng/mL Coagulation 11/11/22 11/11/22 11/12/22 Range/Units 17:10 23:22 05:29 PT 11.9 12.0 (9.0-12.0) sec APTT 34.4 H 35.4 H 37.3 H (22.0-30.0) sec CBC 11/11/22 Range/Units 17:10 WBC 6.6 (3.8-10.6) k/uL RBC 4.84 (4.30-5.90) m/uL Hgb 14.2 (13.0-17.5) gm/dL Hct 41.3 (39.0-53.0) % Plt Count 132 L (150-450) k/uL Comprehensive Metabolic Panel 11/11/22 Range/Units 17:10 Sodium 127 L (137-145) mmol/L Potassium 3.9 (3.5-5.1) mmol/L Chloride 93 L (98-107) mmol/L Carbon Dioxide 24 (22-30) mmol/L BUN 13 (9-20) mg/dL Creatinine 0.82 (0.66-1.25) mg/dL Glucose 112 H (74-99) mg/dL Calcium 8.6 (8.4-10.2) mg/dL AST 47 (17-59) U/L ALT 33 (4-49) U/L Alkaline Phosphatase 57 (38-126) U/L Total Protein 6.9 (6.3-8.2) g/dL Albumin 4.1 (3.5-5.0) g/dL Current Medications Generic Name Dose Route Start Last Admin Trade Name Freq PRN Reason Stop Dose Admin Amlodipine Besylate 5 mg 11/12/22 09:00 Amlodipine 5 Mg Tab PO DAILY [facility] Aspirin 81 mg 11/12/22 09:00 Aspirin 81 Mg PO DAILY [facility] Heparin Sodium (Porcine) 0 unit 11/11/22 17:25 11/12/22 00:14 Heparin Sodium 1,000 Un/Ml (10ml Vl) IV 2,086 unit PER PROTOCOL PRN Administration Low PTT Protocol Hydromorphone HCl 0.5 mg 11/11/22 17:37 Hydromorphone 0.5 Mg/0.5 Ml Syringe IVP Q3HR PRN Moderate Pain (Scale 4 to 6) Hydromorphone HCl 1 mg 11/11/22 17:37 11/12/22 04:33 Hydromorphone 1 Mg/Ml 1 Ml Syringe IVP 1 mg Q3HR PRN Administration Severe Pain (Scale 7 to 10) Heparin Sodium/Sodium Chloride 250 mls @ 10 mls/hr 11/11/22 17:30 11/12/22 00:10 25,000 unit/ Sodium Chloride IV 13.982 units/kg/hr .Q24H ROB 11.67 mls/hr Titration Protocol 11.982 UNITS/KG/HR Sodium Chloride 1,000 mls @ 75 mls/hr 11/11/22 17:45 11/12/22 06:38 Saline 0.9% IV 75 mls/hr .[id number] ROB Administration Lorazepam 1 mg 11/11/22 21:11 Lorazepam 2 Mg/Ml Inj IV Q1HR PRN CIWA 10 to 15 Lorazepam 1 mg 11/11/22 21:11 Lorazepam 2 Mg/Ml Inj IV Q2HR PRN CIWA 8 or 9 Lorazepam 2 mg 11/11/22 21:11 Lorazepam 2 Mg/Ml Inj IV 11/13/22 21:11 Q10M PRN CIWA 16 or higher Metoprolol Tartrate 75 mg 11/11/22 21:00 11/11/22 21:32 Metoprolol Tartrate 25 Mg Tab PO 75 mg BID ROB Administration Naloxone HCl 0.2 mg 11/11/22 17:37 Naloxone 0.4 Mg/Ml 1 Ml Vial IV Q2M PRN Opioid Reversal Ondansetron HCl 4 mg 11/11/22 17:37 11/11/22 21:33 Ondansetron 4 Mg/2 Ml Vial IVP 4 mg Q8HR PRN Administration Nausea And Vomiting Pantoprazole Sodium 40 mg 11/11/22 21:15 11/11/22 21:37 Pantoprazole 40 Mg/10 Ml Vial IVP 40 mg BID ROB Administration Thiamine HCl 100 mg 11/12/22 09:00 Thiamine 100 Mg Tab PO DAILY ROB Intake and Output 11/11/22 11/12/22 11/12/22 22:59 06:59 14:59 Intake Total 61.667 Balance 61.667 Intake: Intake, IV Titration 61.667 Amount Heparin Sod,Pork in 0.45% 61.667 NaCl 25,000 unit In 0.45 % NaCl 1 250ml.bag @ 11. 982 UNITS/KG/HR 10 mls/hr IV .Q24H ROB Rx#: [id number] Other: # Voids 1 1 # Bowel Movements 1 Weight 83.461 kg 11/11/22 17:10 11/11/22 17:10
[2022-11-12] MEDS ORDERED: IBUPROFEN 600 MG TAB PO STA (14:26)
[2022-11-12] MEDS: HEPARIN SOD,PORK IN 0.45% NACL 25,000 UNIT in 0.45% NACL 1 250ML.BAG IV SCH (15:59)
--- NOTE | 2022-11-12 17:35 | CA ---
Transthoracic Echo Report Name: Jaime Raza Age: 62 Gender: M : 1960 Exam Date: 11/12/2022 11:19 Exam Location: [place] [facility] Ht (in): 73 Wt (lb): 184 Ordering Physician: Xiao Almonte Attending/Referring Phys: [id number], Suzy Program Clinician Ariel Moscoso Procedure CPT: Indications: LV function, mechanical heart valve Cardiac Hx: Technical Quality: Fair Contrast 1: Total Dose (mL): Contrast 2: Total Dose (mL): MEASUREMENTS (Male / Female) Normal Values 2D ECHO LV Diastolic Diameter PLAX 5.1 cm 4.2 - 5.9 / 3.9 - 5.3 cm LV Systolic Diameter PLAX 3.2 cm IVS Diastolic Thickness 1.3 cm 0.6 - 1.0 / 0.6 - 0.9 cm LVPW Diastolic Thickness 1.1 cm 0.6 - 1.0 / 0.6 - 0.9 cm LV Relative Wall Thickness 0.5 RV Internal Dim ED PLAX 3.6 cm LVOT Diameter 2.0 cm Aortic Root Diameter 3.2 cm LA Systolic Diameter LX 3.8 cm 3.0 - 4.0 / 2.7 - 3.8 cm LV Diastolic Volume MOD BP 72.8 cm??? 67 - 155 / 56 - 104 cm??? LV Systolic Volume MOD BP 33.5 cm??? 22 - 58 / 19 - 49 cm??? LV Ejection Fraction MOD BP 54.0 % >= 55 % LV Diastolic Volume MOD 4C 79.1 cm??? LV Systolic Volume MOD 4C 43.1 cm??? LV Ejection Fraction MOD 4C 45.5 % LV Diastolic Length 4C 7.4 cm LV Systolic Length 4C 6.5 cm LV Diastolic Volume MOD 2C 62.5 cm??? LV Systolic Volume MOD 2C 21.7 cm??? LV Ejection Fraction MOD 2C 65.3 % LV Diastolic Length 2C 6.9 cm LV Systolic Length 2C 5.4 cm LA Volume 71.3 cm??? 18 - 58 / 22 - 52 cm??? Ascending Aorta Diameter 2.8 cm DOPPLER AV Peak Velocity 175.8 cm/s AV Peak Gradient 12.4 mmHg AV Mean Velocity 121.7 cm/s AV Mean Gradient 6.9 mmHg AV Velocity Time Integral 28.1 cm AI Peak Velocity 120.7 cm/s AI Peak Gradient 5.8 mmHg AI Pressure Half Time 307.3 ms LVOT Peak Velocity 100.1 cm/s LVOT Peak Gradient 4.0 mmHg LVOT Velocity Time Integral 17.7 cm LVOT Stroke Volume 54.2 cm??? LVOT Stroke Volume Index 26.1 ml/m??? AV Area Cont Eq vti 1.9 cm??? AV Area Cont Eq pk 1.7 cm??? MV Peak Velocity 153.4 cm/s MV Peak Gradient 9.4 mmHg MV Mean Velocity 57.8 cm/s MV Mean Gradient 2.1 mmHg MV Velocity Time Integral 36.8 cm MR Peak Velocity 233.1 cm/s MR Peak Gradient 21.7 mmHg MV E' Velocity 8.4 cm/s TR Peak Velocity 230.9 cm/s TR Peak Gradient 21.3 mmHg Right Ventricular Systolic Press 26.4 mmHg PV Peak Velocity 116.3 cm/s PV Peak Gradient 5.4 mmHg FINDINGS Left Ventricle Mildly increased septal wall thickness. left ventricular ejection fraction. Left ventricular ejection fraction is estimated at 50-55%. Right Ventricle Mild RV dilatation. Right Atrium Midly increased RA size. Left Atrium Moderately increased left atrial volume. Mitral Valve Mild Mitral leaflet calcification. No significant stenosis or regurgitation appreciated. Aortic Valve Mechanical aortic valve Prosthesis in place. Tricuspid Valve Structurally normal tricuspid valve. Mild TR. Pulmonic Valve Pulmonic valve not well visualized. Pericardium No pericardial effusion Aorta Normal size aortic root and proximal ascending aorta. CONCLUSIONS Patient has underlying atrial fibrillation. Normal LV size and systolic function with estimated EF 50-55%. Mechanical aortic valve in place, which appears to be functioning appropriately when assessed by color Doppler. Moderately increased LA size. Mildly increased RA and RV size. No prior echo to compare with Previewed by: Dr Ajith Venegas (Electronically Signed) Final Date: 12 November 2022 17:34
--- NOTE | 2022-11-13 00:34 | P.HPIM ---
History of Present Illness H&P Date: 11/12/22 Chief Complaint: N/V Patient is a 62-year-old male with a past medical history of persistent atrial fibrillation after his open heart surgery, aortic and mitral valve replacement, on anticoagulation with Coumadin, prior history of smoking and daily alcohol use presents to ER with complaints of nausea and vomiting. Patient was also having upper abdominal discomfort mainly across the upper chest. Patient was seen at [facility] prior to arrival. Patient also complaining of back pain. He is unable keep down anything. CT of abdomen done at [facility] showed cholelithiasis without evidence of cholecystitis. Hiatal hernia and no acute process. CT PE showed no evidence of PE. Patient was transferred to [facility] for further evaluation. On admission EKG showed atrial fibrillation with heart rate of 91. Laboratory data showed WBC 6.6 hemoglobin 14.4 and platelets 132 Sodium 127 potassium 3.9 chloride 93 bicarb is 24 BUN 13 and creatinine 0.8 and blood sugar is 112 and total bilirubin level is 2.7. Troponin x3 negative. Lipase level is 115 and coronavirus PCR not detected. INR is 1.2 Review of Systems Constitutional: Patient denies any fever or chills . no Generalized weakness. Abdomen: Patient nausea vomiting and epigastric abdominal discomfort and diarrhea. Cardiovascular: Patient denies any chest pain or short of breath no palpitations. Respiratory: patient denied any cough . no sputum production. No shortness of breath Neurologic: Patient denied any numbness or tingling headache. Musculoskeletal: Patient denies any complaints of joint swelling or deformity. Skin: Negative Psychiatric: Negative Endocrine: No heat or cold intolerance. No recent weight gain. Genitourinary: No dysuria or hematuria. All other 14 point ROS negative except the above Past Medical History Past Medical History: Atrial Fibrillation, Coronary Artery Disease (CAD), Hypertension Additional Past Medical History / Comment(s): chronic lower back pain, History of Any Multi-Drug Resistant Organisms: None Reported Past Surgical History: Cardiac Valve Replacement, Coronary Bypass/CABG Additional Past Surgical History / Comment(s): right knee, jaw Past Psychological History: No Psychological Hx Reported Smoking Status: Former smoker Past Alcohol Use History: Daily Past Drug Use History: Marijuana Medications and Allergies Home Medications Medication Instructions Recorded Confirmed Type Aspirin [Children's Aspirin] 81 mg PO DAILY 11/11/22 11/11/22 History Lansoprazole 15 mg PO DAILY 11/11/22 11/11/22 History Metoprolol Tartrate [Lopressor] 75 mg PO BID 11/11/22 11/11/22 History Omeprazole 20 mg PO DAILY 11/11/22 11/11/22 History Warfarin [Coumadin] 7.5 mg PO MOWEFRSA 11/11/22 11/11/22 History Warfarin [Coumadin] 10 mg PO SUTUTH 11/11/22 11/11/22 History amLODIPine [Norvasc] 5 mg PO DAILY 11/11/22 11/11/22 History lisinopriL 40 mg PO HS 11/11/22 11/11/22 History Allergies Allergy/AdvReac Type Severity Reaction Status Date / Time propoxyphene Allergy Rash/Hives Verified 11/11/22 19:15 [From Darvocet-N 100] acetaminophen AdvReac Rash/Hives Verified 11/11/22 19:01 [From Darvocet-N 100] amitriptyline [From Elavil] AdvReac NIGHTMARES Verified 11/11/22 19:15 hydralazine AdvReac MIGRAINES Verified 11/11/22 19:15 naproxen [From Naprosyn] AdvReac Nausea Verified 11/11/22 19:15 Physical Exam Vitals: Vital Signs Temp Pulse Pulse Resp BP BP BP 11/12/22 07:00 99.1 F 88 16 108/64 11/12/22 02:41 98.4 F 91 17 120/66 11/11/22 21:48 99.9 F H 92 18 151/73 11/11/22 21:44 128 H 18 138/83 11/11/22 20:00 112 H 18 121/96 11/11/22 18:06 98 18 120/82 11/11/22 16:38 97.1 F L 77 18 109/77 Pulse Ox 11/12/22 07:00 93 L 11/12/22 02:41 97 11/11/22 21:48 95 11/11/22 21:44 94 L 11/11/22 20:00 97 11/11/22 18:06 97 11/11/22 16:38 99 Intake and Output 11/11/22 11/12/22 11/12/22 22:59 06:59 14:59 Intake Total 61.667 104.641 Balance 61.667 104.641 Intake: Intake, IV Titration 61.667 104.641 Amount Heparin Sod,Pork in 0.45% 61.667 104.641 NaCl 25,000 unit In 0.45 % NaCl 1 250ml.bag @ 11. 982 UNITS/KG/HR 10 mls/hr IV .Q24H [facility] Rx#: [id number] Other: # Voids 1 1 # Bowel Movements 1 Weight 83.461 kg PHYSICAL EXAMINATION: Patient is lying in the bed comfortably, no acute distress, awake alert and oriented.. HEENT: Normocephalic. Neck is supple. Pupils reactive. Nostrils clear. Oral cavity is moist. Neck reveals no JVD, carotid bruits, or thyromegaly. CHEST EXAMINATION: Trachea is central. Symmetrical expansion. Lung frias clear to auscultation and percussion. CARDIAC: Normal S1, S2 with no gallops. mechanical valve, irregular ABDOMEN: Soft. Bowel sounds present. Nontender. No organomegaly. No abdominal bruits. Extremities: reveal no edema. No clubbing or cyanosis Neurologically awake, alert, oriented x3 with well-coordinated movements. No focal deficits noted Skin: No rash or skin lesions. Psychiatric: Coperative. Nonsuicidal, Musculoskeletal: No joint swelling or deformity. Normal range of motion. Results CBC & Chem 7: 11/15/22 06:44 11/15/22 06:44 Labs: Abnormal Lab Results - Last 24 Hours (Table) 11/11/22 11/11/22 11/11/22 Range/Units 17:10 17:10 17:10 RBC (4.40-5.60) X 10*6/uL Hct (39.6-50.0) % Plt Count 132 L (150-450) k/uL Lymphocytes # 0.4 L (1.0-4.8) k/uL Eosinophils # (0.04-0.35) X 10*3/uL INR 1.2 H (<1.2) APTT 34.4 H (22.0-30.0) sec Sodium 127 L (137-145) mmol/L Chloride 93 L (98-107) mmol/L Glucose 112 H (74-99) mg/dL Total Bilirubin 2.7 H (0.2-1.3) mg/dL 11/11/22 11/12/22 11/12/22 Range/Units 23:22 05:29 05:29 RBC 4.31 L (4.40-5.60) X 10*6/uL Hct 36.0 L (39.6-50.0) % Plt Count 133 L (150-450) k/uL Lymphocytes # 0.48 L (1.0-4.8) k/uL Eosinophils # 0 L (0.04-0.35) X 10*3/uL INR 1.2 H (<1.2) APTT 35.4 H 37.3 H (22.0-30.0) sec Sodium (137-145) mmol/L Chloride (98-107) mmol/L Glucose (74-99) mg/dL Total Bilirubin (0.2-1.3) mg/dL Thrombosis Risk Factor Assmnt - DVT/VTE Prophylaxis DVT/VTE Prophylaxis: Pharmacologic Prophylaxis ordered - Choose All That Apply Any of the Below Risk Factors Present?: Yes Each Factor Represents 1 point: Abnormal pulmonary function (COPD), Age 41-60 years Other Risk Factors: No Other congenital or acquired thrombophilia - If yes, enter type in comment: No Thrombosis Risk Factor Assessment Total Risk Factor Score: 2 Thrombosis Risk Factor Assessment Level: Low Risk Assessment and Plan Assessment: Intractable nausea and vomiting and diarrhea. Possible gastroenteritis Daily alcohol use Fever Tmax 100.1 Atrial fibrillation persistent. Rate is controlled. Subtherapeutic INR level History of mitral and tricuspid valve replacement at [facility] and also aortic root repair in 2019 Hypertension Chronic low back pain Prior history of smoking Daily alcohol use and marijuana use Plan: Patient will be continued on telemetry monitoring. Continue with PPI 40 mg twice daily and symptomatic management for nausea and vomiting. Follow-up C. difficile toxin. CT of the abdomen pelvis and CT PE was done at [facility]. Report reviewed. Follow-up repeat chest x-ray and UA. Coronavirus PCR will be sent. Patient was started on heparin drip due to subtherapeutic INR level. [facility] protocol Cardiology and GI is on board. Follow-up closely. Time with Patient: Greater than 30
--- NOTE | 2022-11-13 00:45 | CONS ---
CONSULTATION REQUESTING PHYSICIAN: [facility]. HISTORY OF PRESENT ILLNESS: The patient is a 62-year-old pleasant white male with history of atrial fibrillation, on Coumadin, history of mechanical heart valve, admitted to the hospital because of acute onset of nausea, vomiting, back pain, severe chest pain that has been going on for the last 3-4 days prior to hospitalization. He went to the emergency room in [place] and was subsequently transferred to this hospital. While in [place], he had a CT of the abdomen and pelvis done that showed a hiatal hernia and gallstones. Since being here, his symptoms have significantly improved. The nausea and vomiting have completely resolved. He is on a soft diet right now and tolerating well. He never had these symptoms in the past. He has chronic heartburn and has been taking omeprazole 20 mg daily for several years. He denies any dysphagia or odynophagia. PAST MEDICAL HISTORY: Significant for atrial fibrillation, coronary artery disease, hypertension, gastroesophageal reflux disease. PAST SURGICAL HISTORY: Mechanical heart valve and bypass surgery. MEDICATIONS: Medications at home include; 1. Coumadin. 2. Prilosec. 3. Lisinopril. 4. Norvasc. 5. Lopressor. 6. Lansoprazole. 7. Aspirin. ALLERGIES: Naproxen, hydralazine, Elavil, Darvocet. SOCIAL HISTORY: History of smoking in the past. No alcohol use. FAMILY HISTORY: Unremarkable. REVIEW OF SYSTEMS: CARDIOPULMONARY: He did have chest pain, but no shortness of breath. GENITOURINARY: No dysuria or hematuria. MUSCULOSKELETAL: Unremarkable. SKIN: Unremarkable. ENDOCRINE: Unremarkable. PSYCHIATRIC: Unremarkable. NEUROLOGY: Unremarkable. ENT/VISION: Unremarkable. CONSTITUTIONAL: No recent weight loss. No fever, chills, or night sweats. PHYSICAL EXAMINATION: GENERAL: He appears comfortable. No apparent distress. VITAL SIGNS: Stable. Blood pressure is 108/64, pulse rate 88, temperature 98.6. HEENT: Unremarkable. Conjunctivae pink. Sclerae anicteric. Oral cavity, no lesions. NECK: No JVD or lymph node enlargement. CHEST: Clear to auscultation. HEART: Regular rate and rhythm. ABDOMEN: Soft. It was nontender, nondistended. Bowel sounds are positive. No organomegaly. EXTREMITIES: No pedal edema. NEURO: He is alert and oriented x3. No focal deficits. LABORATORY DATA: WBC 6.4, hemoglobin 12, platelets are 133. INR is 1.2. Basic metabolic panel is within normal limits except for sodium of 127, BUN and creatinine normal. Bilirubin is 2.7. IMPRESSION: 1. Acute onset of nausea, vomiting, chest pain, back pain for the last 3 to 4 days duration. He also had some diarrhea at the onset of these symptoms. CT of the abdomen done at [facility] showed evidence of hiatal hernia, but no records available at the time of this dictation. Since being in the hospital, the patient has been on IV Protonix 40 mg twice daily and his symptoms have significantly improved. The nausea and vomiting have resolved. It is possible he may have had an episode of gastroenteritis that has resolved spontaneously. 2. Longstanding history of GERD, on omeprazole 20 mg daily. 3. History of atrial fibrillation. 4. History of valve replacement, on Coumadin. RECOMMENDATIONS: 1. Continue with Protonix 40 mg q.12 hours. 2. Antiemetics as needed. 3. Advance diet as tolerated. 4. Since symptoms have significantly improved, no need for any endoscopy intervention at the present time. We will follow with you closely. Thank you for this consultation. MMODL / IJN: [id number] /
[2022-11-13] MEDS ORDERED: IPRATROPIUM-ALBUTEROL 3 ML NEB INHALATION PRN (00:53)
[2022-11-13] MEDS ORDERED: IPRATROPIUM-ALBUTEROL 3 ML NEB INHALATION SCH (04:00)
[2022-11-13] MEDS: HYDROmorphone 1 MG/ML 1 ML SYRINGE IVP PRN ×3 (05:20→20:05)
[2022-11-13 06:40] LABS: INR 1.1 (<1.2); Partial Thromboplastin Time 34.8 sec (22.0-30.0); Prothrombin Time 11.6 sec (9.0-12.0)
[2022-11-13] MEDS: HEPARIN SODIUM 1,000 UN/ML (10ML VL) IV PRN ×2 (06:50→13:34)
[2022-11-13] MEDS: IPRATROPIUM-ALBUTEROL 3 ML NEB INHALATION SCH ×4 (07:52→20:15)
[2022-11-13 08:51] LABS: Basophils # (A) 0.02 X 10*3/uL (0.00-0.10); Basophils % (A) 0.4 %; Eosinophils # (A) 0 X 10*3/uL (0.04-0.35); Eosinophils % (A) 0 %; HCT 34.2 % (39.6-50.0); HGB 11.8 d/dL (12.0-15.0); Lymphocytes # (A) 0.32 X 10*3/uL (0.90-5.00); Lymphocytes % (A) 6.6 %; MCH 28.6 pg (27.0-32.0); MCHC 34.5 d/dL (32.0-37.0); MCV 82.8 FL (80.0-97.0); Monocytes % (A) 8.2 %; NRBC Per 100 WBC 0 X 10*3/uL (0.00-0.01); Neutrophils # (A) 4.06 X 10*3/uL (1.80-7.70); Neutrophils % (A) 83.8 %; Platelet Count 124 X 10*3/uL (140-440); RBC 4.13 X 10*6/uL (4.40-5.60); RDW 13.4 % (11.5-14.5); WBC 4.85 X 10*3/uL (4.50-10.00)
[2022-11-13 09:45] LABS: Blood Urea Nitrogen 13.6 mg/dL (9.0-27.0); Carbon Dioxide 20.3 mmol/L (21.6-31.8); Chloride 93 mmol/L (96-109); Glucose 97 mg/dL (70-110); Potassium 3.4 mmol/L (3.5-5.5); Sodium 126 mmol/L (135-145)
[2022-11-13] MEDS: THIAMINE 100 MG TAB PO SCH (10:12)
[2022-11-13] MEDS: METOPROLOL TARTRATE 25 MG TAB PO SCH ×2 (10:12→20:05)
[2022-11-13] MEDS: ASPIRIN 81 MG PO SCH (10:12)
[2022-11-13] MEDS: amLODIPine 5 MG TAB PO SCH (10:12)
[2022-11-13] MEDS: PANTOPRAZOLE 40 MG/10 ML VIAL IVP SCH ×2 (10:12→20:05)
--- NOTE | 2022-11-13 10:40 | P.PN ---
Subjective HISTORY OF PRESENT ILLNESS: This is a 62-year-old male with a past medical history significant for atrial fibrillation after his open-heart surgery, aortic root repair, and previous aortic valve replacement. Patient follows with a [facility] in [place]. We have been asked to see the patient in consultation for subtherapeutic INR and atrial fibrillation. Patient examined at the bedside. Patient states on he began feeling unwell. He states that he has been having some epigastric tenderness. He reports nausea and throwing up since . He states he has been unable to keep his medications down. Patient was found to have subtherapeutic INR 1.2. Patient states his INR has been therapeutic and he generally has very good control over his INR. He denies any chest pain or pressure. Denies any SOB. He reports that his abdomen feels distended this morning and his stomach feels sore from throwing up. Patient states he is a former cigarette smoker and quit smoking approximately 10 years ago. He reports occasional alcohol use. * EKG reveals atrial fibrillation with controlled ventricular rate * Laboratory data: WBC 6.43. Hemoglobin 12.4. Platelet count 133. INR 1.2. Sodium 127. Potassium 3.9. BUN 13. Creatinine 0.82. Troponin negative 3. * Current home cardiac medications include aspirin 81 mg daily, metoprolol tartrate 75 mg twice a day, amlodipine 5 mg daily, lisinopril 40 mg at night, warfarin 7.5 mg Saturday and Saturday and 10 mg Saturday11/13/2022 Patient examined this morning at the bedside. Patient denies chest pain or p ressure. Patient reports he had some shortness of breath overnight but denies shortness of breath this morning. Patient states his abdominal pain has improved. He denies any further episodes of nausea or vomiting. He was evaluated by GI team yesterday with no plans for endoscopy. He remains on IV heparin. INR today 1.0. Echocardiogram completed revealing ejection fraction 50-55% and normally functioning mechanical aortic valve. PHYSICAL EXAM: VITAL SIGNS: Reviewed. GENERAL: Well-developed in no acute distress. HEENT: Head is normocephalic. Pupils are equal, round. Sclerae anicteric. Mucous membranes of the mouth are moist. Neck supple. No JVD or thyromegaly LUNGS: Respirations even and unlabored. Lungs essentially clear to auscultation bilaterally. HEART: Irregular rate and rhythm. S1 and S2 heard. ABDOMEN: Soft. Nondistended. Nontender. EXTREMITIES: Normal range of motion. No clubbing or cyanosis. Peripheral pulses intact. No lower extremity edema NEUROLOGIC: Awake and alert. Oriented x 3. ASSESSMENT: Abdominal pain with nausea and vomiting, improved Subtherapeutic INR, unable to keep medications down at home due to vomiting History of mechanical aortic valve replacement, 2019 at [facility] History of aortic root repair, 2019 Persistent atrial fibrillation Hypertension Former nicotine dependence, patient quit smoking 10 years ago PLAN: GI evaluated patient with no plans for endoscopy Resume Coumadin. Monitor INR. Continue Heparin drip until INR is at least 2.0 Continue additional cardiac medications Further recommendations pending patient's course Nurse practitioner note has been reviewed by physician. Signing provider agrees with the documented findings, assessment, and plan of care. Dr. Venegas's Addendum I have personally reviewed the patient's echocardiogram. Patient has a mechanical aortic valve is functioning appropriately with no significant stenosis or regurgitation. Patient's INR is subtherapeutic. GI team is not planning to do any interventions. Patient's nausea and abdominal pain has resolved. We will start warfarin therapy and bridge IV heparin until the INR is at goal. For this patient the goal INR is 2-3. I have personally seen and examined the patient. I have personally performed all the components of medical care documented above including formulating the assessment and plan. I have personally reviewed the relevant labs, imaging and other diagnostics. I have discussed this in detail with my OFFAL ICER POULTRY who has helped me with this documentation. I have carefully reviewed this document before finalizi ng. Total time spent reviewing medical chart, examining patient, counselling patient and documentation 30 mins Thank you for letting cardiology team participating in this patient's care. Dr. Ajith Venegas MD Cardiovascular Disease Objective - Vital Signs Vital signs: Vital Signs Temp 98.8 F 11/13/22 07:00 Pulse 104 H 11/13/22 08:02 Resp 18 11/13/22 07:00 BP 109/71 11/13/22 07:00 Pulse Ox 94 L 11/13/22 07:52 FiO2 Intake & Output 11/12/22 11/13/22 11/13/22 18:59 06:59 18:59 Intake Total 188.333 221.868 Balance 188.333 221.868 Intake: Intake, IV Titration 188.333 221.868 Amount Heparin Sod,Pork in 0.45% 188.333 221.868 NaCl 25,000 unit In 0.45 % NaCl 1 250ml.bag @ 11. 982 UNITS/KG/HR 10 mls/hr IV .Q24H [facility] Rx#: [id number] Other: # Voids 4 1 - Labs CBC & Chem 7: 11/13/22 05:32 11/13/22 05:32 Labs: Abnormal Lab Results - Last 24 Hours (Table) 11/12/22 11/12/22 11/13/22 Range/Units 14:26 21:30 05:32 RBC (4.40-5.60) X 10*6/uL Hgb (12.0-15.0) d/dL Hct (39.6-50.0) % Plt Count (140-440) X 10*3/uL Lymphocytes # (0.90-5.00) X 10*3/uL Eosinophils # (0.04-0.35) X 10*3/uL APTT 37.1 H 44.2 H 34.8 H (22.0-30.0) sec Sodium (135-145) mmol/L Potassium (3.5-5.5) mmol/L Chloride (96-109) mmol/L Carbon Dioxide (21.6-31.8) mmol/L Anion Gap (4.00-12.00) mmol/L Calcium (8.7-10.3) mg/dL Procalcitonin (0.02-0.09) ng/mL 11/13/22 11/13/22 11/13/22 Range/Units 05:32 05:32 05:32 RBC 4.13 L (4.40-5.60) X 10*6/uL Hgb 11.8 L (12.0-15.0) d/dL Hct 34.2 L (39.6-50.0) % Plt Count 124 L (140-440) X 10*3/uL Lymphocytes # 0.32 L (0.90-5.00) X 10*3/uL Eosinophils # 0 L (0.04-0.35) X 10*3/uL APTT (22.0-30.0) sec Sodium 126 L (135-145) mmol/L Potassium 3.4 L (3.5-5.5) mmol/L Chloride 93 L (96-109) mmol/L Carbon Dioxide 20.3 L (21.6-31.8) mmol/L Anion Gap 12.70 H (4.00-12.00) mmol/L Calcium 8.0 L (8.7-10.3) mg/dL Procalcitonin 0.87 H (0.02-0.09) ng/mL
[2022-11-13] MEDS ORDERED: POTASSIUM CHLORIDE ER 20 MEQ TAB.ER PO STA (14:23)
--- NOTE | 2022-11-13 15:10 | XR ---
EXAMINATION TYPE: XR chest 1V DATE OF EXAM: 11/13/2022 COMPARISON: None INDICATION: Fever TECHNIQUE: Single frontal view of the chest is obtained. FINDINGS: The heart size is normal. The pulmonary vasculature is normal. The lungs are clear. Sternotomy wires are present from prior CABG. IMPRESSION: 1. No acute pulmonary process.
[2022-11-13 16:31] LABS: Appearance,Urine Clear (Clear); Bilirubin,Urine Negative (Negative); Blood,Urine Negative (Negative); Color,Urine Yellow; Glucose,Urine (UA) Negative (Negative); Ketones,Urine Negative (Negative); Leukocyte Esterase,Urine Negative (Negative); Nitrite,Urine Negative (Negative); Protein,Urine Negative (Negative); Urobilinogen,Urine >12.0 mg/dL (<2.0)
--- NOTE | 2022-11-13 17:13 | P.PN ---
Subjective Progress Note Date: 11/13/22 Principal diagnosis: Abdominal pain, nausea vomiting Patient is seen and evaluated for follow-up for acute onset of nausea vomiting and back pain. He states he has no abdominal pain, nausea and vomiting has improved. He is tolerating his diet. Objective - Vital Signs Vital signs: Vital Signs Temp 98.8 F 11/13/22 07:00 Pulse 104 H 11/13/22 08:02 Resp 18 11/13/22 07:00 BP 109/71 11/13/22 07:00 Pulse Ox 94 L 11/13/22 07:52 FiO2 Intake & Output 11/12/22 11/13/22 11/13/22 18:59 06:59 18:59 Intake Total 188.333 221.868 Balance 188.333 221.868 Intake: Intake, IV Titration 188.333 221.868 Amount Heparin Sod,Pork in 0.45% 188.333 221.868 NaCl 25,000 unit In 0.45 % NaCl 1 250ml.bag @ 11. 982 UNITS/KG/HR 10 mls/hr IV .Q24H [facility] Rx#: [id number] Other: # Voids 4 1 - Exam General appearance: The patient is alert, oriented, appears in no acute distress. HET: Head is normocephalic and atraumatic. Conjunctiva pink. Sclera anicteric. Neck: Supple without lymphadenopathy. Abdomen: Soft, nontender, nondistended with bowel sounds. No guarding or rigidity. Extremities: Normal skin color and turgor. No pedal edema Skin: No rashes, no jaundice Neurological: No focal deficits. Alert and oriented. - Labs CBC & Chem 7: 11/13/22 05:32 11/13/22 05:32 Labs: Abnormal Lab Results - Last 24 Hours (Table) 11/12/22 11/12/22 11/13/22 Range/Units 14:26 21:30 05:32 RBC (4.40-5.60) X 10*6/uL Hgb (12.0-15.0) d/dL Hct (39.6-50.0) % Plt Count (140-440) X 10*3/uL Lymphocytes # (0.90-5.00) X 10*3/uL Eosinophils # (0.04-0.35) X 10*3/uL APTT 37.1 H 44.2 H 34.8 H (22.0-30.0) sec Sodium (135-145) mmol/L Potassium (3.5-5.5) mmol/L Chloride (96-109) mmol/L Carbon Dioxide (21.6-31.8) mmol/L Anion Gap (4.00-12.00) mmol/L Calcium (8.7-10.3) mg/dL Procalcitonin (0.02-0.09) ng/mL 11/13/22 11/13/22 11/13/22 Range/Units 05:32 05:32 05:32 RBC 4.13 L (4.40-5.60) X 10*6/uL Hgb 11.8 L (12.0-15.0) d/dL Hct 34.2 L (39.6-50.0) % Plt Count 124 L (140-440) X 10*3/uL Lymphocytes # 0.32 L (0.90-5.00) X 10*3/uL Eosinophils # 0 L (0.04-0.35) X 10*3/uL APTT (22.0-30.0) sec Sodium 126 L (135-145) mmol/L Potassium 3.4 L (3.5-5.5) mmol/L Chloride 93 L (96-109) mmol/L Carbon Dioxide 20.3 L (21.6-31.8) mmol/L Anion Gap 12.70 H (4.00-12.00) mmol/L Calcium 8.0 L (8.7-10.3) mg/dL Procalcitonin 0.87 H (0.02-0.09) ng/mL Assessment and Plan (1) Nausea and vomiting Narrative/Plan: Acute onset of nausea vomiting chest pain back pain for last 3-4 days duration. Had diarrhea onset of symptoms. CT of the abdomen done at [facility] showed evidence of hiatal hernia, but no records available at this time. Since being in the hospital patient has been on IV Protonix 40 mg twice daily and his symptoms have significantly improved. Nausea and vomiting resolved. If possible he may have had an episode of gastroenteritis that has resolved spontan eously. Current Visit: Yes Status: Acute Code(s): R11.2 - NAUSEA WITH VOMITING, UNSPECIFIED SNOMED Code(s): 13094871 (2) GERD (gastroesophageal reflux disease) Current Visit: Yes Status: Acute Code(s): K21.9 - GASTRO-ESOPHAGEAL REFLUX DISEASE WITHOUT ESOPHAGITIS SNOMED Code(s): 657696423 Plan: 1. Continue symptomatic and supportive care 2. Continue with Protonix 40 mg twice a day 3. Antiemetics as needed 4. Diet as tolerated 5. No plans on endoscopic evaluation Thank you for this consultation, patient is cleared from gastroenterology. We will sign off at this time. Dr. Esme Antonio I agree with the dictator's note, documented as a scribe by Colleen Cooper.
[2022-11-13] MEDS: HEPARIN SOD,PORK IN 0.45% NACL 25,000 UNIT in 0.45% NACL 1 250ML.BAG IV SCH ×2 (17:40→23:09)
[2022-11-13] MEDS ORDERED: WARFARIN 10 MG TAB PO ONE (18:00)
[2022-11-14] MEDS: HYDROmorphone 1 MG/ML 1 ML SYRINGE IVP PRN ×3 (03:00→23:59)
[2022-11-14 06:31] LABS: INR 1.2 (<1.2); Partial Thromboplastin Time 54.4 sec (22.0-30.0); Prothrombin Time 12.4 sec (9.0-12.0)
[2022-11-14] MEDS: IPRATROPIUM-ALBUTEROL 3 ML NEB INHALATION SCH ×4 (07:51→20:14)
[2022-11-14 08:48] LABS: Basophils # (A) 0.02 X 10*3/uL (0.00-0.10); Basophils % (A) 0.4 %; Eosinophils # (A) 0.02 X 10*3/uL (0.04-0.35); Eosinophils % (A) 0.4 %; HCT 33.3 % (39.6-50.0); Lymphocytes # (A) 0.56 X 10*3/uL (0.90-5.00); Lymphocytes % (A) 11.8 %; MCH 28.2 pg (27.0-32.0); MCV 85.4 FL (80.0-97.0); Mean Platelet Volume 12.4 FL (9.5-12.2); Monocytes # (A) 0.42 X 10*3/uL (0.20-1.00); Monocytes % (A) 8.9 %; NRBC Per 100 WBC 0 X 10*3/uL (0.00-0.01); Neutrophils # (A) 3.66 X 10*3/uL (1.80-7.70); Neutrophils % (A) 77.4 %; Platelet Count 129 X 10*3/uL (140-440); RDW 13.5 % (11.5-14.5); WBC 4.73 X 10*3/uL (4.50-10.00)
[2022-11-14] MEDS: THIAMINE 100 MG TAB PO SCH (09:07)
[2022-11-14] MEDS: PANTOPRAZOLE 40 MG/10 ML VIAL IVP SCH ×2 (09:08→19:51)
[2022-11-14] MEDS: amLODIPine 5 MG TAB PO SCH (09:08)
[2022-11-14] MEDS: METOPROLOL TARTRATE 25 MG TAB PO SCH ×2 (09:08→19:51)
[2022-11-14] MEDS: ASPIRIN 81 MG PO SCH (09:08)
[2022-11-14 09:42] LABS: Carbon Dioxide 22.9 mmol/L (21.6-31.8); Chloride 97 mmol/L (96-109); Glucose 104 mg/dL (70-110); Potassium 3.6 mmol/L (3.5-5.5); Sodium 131 mmol/L (135-145)
--- NOTE | 2022-11-14 12:49 | P.PN ---
Subjective HISTORY OF PRESENT ILLNESS: This is a 62-year-old male with a past medical history significant for atrial fibrillation after his open-heart surgery, aortic root repair, and previous aortic valve replacement. Patient follows with a bioinformatics technician in [place]. We have been asked to see the patient in consultation for subtherapeutic INR and atrial fibrillation. Patient examined at the bedside. Patient states on he began feeling unwell. He states that he has been having some epigastric tenderness. He reports nausea and throwing up since . He states he has been unable to keep his medications down. Patient was found to have subtherapeutic INR 1.2. Patient states his INR has been therapeutic and he generally has very good control over his INR. He denies any chest pain or pressure. Denies any SOB. He reports that his abdomen feels distended this morning and his stomach feels sore from throwing up. Patient states he is a former cigarette smoker and quit smoking approximately 10 years ago. He reports occasional alcohol use. * EKG reveals atrial fibrillation with controlled ventricular rate * Laboratory data: WBC 6.43. Hemoglobin 12.4. Platelet count 133. INR 1.2. Sodium 127. Potassium 3.9. BUN 13. Creatinine 0.82. Troponin negative 3. * Current home cardiac medications include aspirin 81 mg daily, metoprolol tartrate 75 mg twice a day, amlodipine 5 mg daily, lisinopril 40 mg at night, warfarin 7.5 mg Saturday and Saturday and 10 mg Saturday11/13/2022 Patient examined this morning at the bedside. Patient denies chest pain or p ressure. Patient reports he had some shortness of breath overnight but denies shortness of breath this morning. Patient states his abdominal pain has improved. He denies any further episodes of nausea or vomiting. He was evaluated by GI team yesterday with no plans for endoscopy. He remains on IV heparin. INR today 1.0. Echocardiogram completed revealing ejection fraction 50-55% and normally functioning mechanical aortic valve. 11/14/2022 Patient examined this morning at the bedside. Patient denies chest pain or pressure. He denies shortness of breath. Patient states his constipation has resolved and he finally had a bowel movement this morning. He remains on IV heparin. INR today 1.2. He received 10 mg of Coumadin last night. PHYSICAL EXAM: VITAL SIGNS: Reviewed. GENERAL: Well-developed in no acute distress. HEENT: Head is normocephalic. Pupils are equal, round. Sclerae anicteric. Mucous membranes of the mouth are moist. Neck supple. No JVD or thyromegaly LUNGS: Respirations even and unlabored. Lungs essentially clear to auscultation bilaterally. HEART: Irregular rate and rhythm. S1 and S2 heard. Mechanical click auscultated. ABDOMEN: Soft. Nondistended. Nontender. EXTREMITIES: Normal range of motion. No clubbing or cyanosis. Peripheral pulses intact. No lower extremity edema NEUROLOGIC: Awake and alert. Oriented x 3. ASSESSMENT: Abdominal pain with nausea and vomiting, improved Subtherapeutic INR, unable to keep medications down at home due to vomiting History of mechanical aortic valve replacement, 2019 at [facility] History of aortic root repair, 2019 Persistent atrial fibrillation Hypertension Former nicotine dependence, patient quit smoking 10 years ago PLAN: Continue Coumadin. Monitor INR. Continue Heparin drip until INR is at least 2.0 Continue additional cardiac medications Further recommendations pending patient's course Nurse practitioner note has been reviewed by physician. Signing provider agrees with the documented findings, assessment, and plan of care. Dr. Venegas's Addendum INR 1.2 today. He was started on warfarin yesterday and got 10 mg dose. We will continue IV heparin until his INR is at his goal INR is 2-3. Continue his other medications which include aspirin and metoprolol amlodipine and lisinopril I have personally seen and examined the patient. I have personally performed all the components of medical care documented above including formulating the assessment and plan. I have personally reviewed the relevant labs, imaging and other diagnostics. I have discussed this in detail with my ENTERER who has helped me with this documentation. I have carefully reviewed this document before f inalizing. Total time spent reviewing medical chart, examining patient, counselling patient and documentation 30 mins Thank you for letting cardiology team participating in this patient's care. Dr. Ajith Venegas MD Cardiovascular Disease Objective - Vital Signs Vital signs: Vital Signs Temp 97.7 F 11/14/22 07:00 Pulse 84 11/14/22 11:48 Resp 18 11/14/22 08:00 BP 135/77 11/14/22 07:00 Pulse Ox 92 L 11/14/22 07:51 FiO2 Intake & Output 11/13/22 11/14/22 11/14/22 18:59 06:59 18:59 Intake Total 326.132 251.271 Balance 326.132 251.271 Intake: Intake, IV Titration 28.132 251.271 Amount Heparin Sod,Pork in 0.45% 28.132 251.271 NaCl 25,000 unit In 0.45 % NaCl 1 250ml.bag @ 11. 982 UNITS/KG/HR 10 mls/hr IV .Q24H [facility] Rx#: [id number] Oral 298 Other: Voiding Method Toilet Toilet # Voids 2 1 - Labs CBC & Chem 7: 11/14/22 05:47 11/14/22 05:47 Labs: Abnormal Lab Results - Last 24 Hours (Table) 11/13/22 11/13/22 11/14/22 Range/Units 12:13 19:36 05:47 RBC (4.40-5.60) X 10*6/uL Hgb (12.0-15.0) d/dL Hct (39.6-50.0) % Plt Count (140-440) X 10*3/uL MPV (9.5-12.2) FL Lymphocytes # (0.90-5.00) X 10*3/uL Eosinophils # (0.04-0.35) X 10*3/uL PT 12.4 H (9.0-12.0) sec INR 1.2 H (<1.2) APTT 37.8 H 48.8 H 54.4 H (22.0-30.0) sec Sodium (135-145) mmol/L BUN (9.0-27.0) mg/dL BUN/Creatinine Ratio (12.00-20.00) Ratio Calcium (8.7-10.3) mg/dL 11/14/22 11/14/22 Range/Units 05:47 05:47 RBC 3.90 L (4.40-5.60) X 10*6/uL Hgb 11.0 L (12.0-15.0) d/dL Hct 33.3 L (39.6-50.0) % Plt Count 129 L (140-440) X 10*3/uL MPV 12.4 H (9.5-12.2) FL Lymphocytes # 0.56 L (0.90-5.00) X 10*3/uL Eosinophils # 0.02 L (0.04-0.35) X 10*3/uL PT (9.0-12.0) sec INR (<1.2) APTT (22.0-30.0) sec Sodium 131 L (135-145) mmol/L BUN 8.0 L (9.0-27.0) mg/dL BUN/Creatinine Ratio 10.00 L (12.00-20.00) Ratio Calcium 8.0 L (8.7-10.3) mg/dL
[2022-11-14] MEDS: HEPARIN SOD,PORK IN 0.45% NACL 25,000 UNIT in 0.45% NACL 1 250ML.BAG IV SCH (14:04)
[2022-11-14] MEDS ORDERED: WARFARIN 7.5 MG TAB PO ONE (18:00)
[2022-11-15] MEDS: HEPARIN SOD,PORK IN 0.45% NACL 25,000 UNIT in 0.45% NACL 1 250ML.BAG IV SCH ×2 (01:18→17:43)
[2022-11-15 07:20] LABS: INR 1.4 (<1.2); Prothrombin Time 13.8 sec (9.0-12.0)
[2022-11-15] MEDS: HYDROmorphone 1 MG/ML 1 ML SYRINGE IVP PRN ×3 (07:54→20:03)
[2022-11-15] MEDS: IPRATROPIUM-ALBUTEROL 3 ML NEB INHALATION SCH ×4 (08:15→20:57)
[2022-11-15] MEDS: PANTOPRAZOLE 40 MG/10 ML VIAL IVP SCH ×2 (09:18→20:03)
[2022-11-15] MEDS: ASPIRIN 81 MG PO SCH (09:19)
[2022-11-15] MEDS: amLODIPine 5 MG TAB PO SCH (09:19)
[2022-11-15] MEDS: METOPROLOL TARTRATE 25 MG TAB PO SCH ×2 (09:19→20:03)
[2022-11-15] MEDS: THIAMINE 100 MG TAB PO SCH (09:19)
--- NOTE | 2022-11-15 10:39 | P.PN ---
Subjective HISTORY OF PRESENT ILLNESS: This is a 62-year-old male with a past medical history significant for atrial fibrillation after his open-heart surgery, aortic root repair, and previous aortic valve replacement. Patient follows with a diesel dinkey engineer in [place]. We have been asked to see the patient in consultation for subtherapeutic INR and atrial fibrillation. Patient examined at the bedside. Patient states on he began feeling unwell. He states that he has been having some epigastric tenderness. He reports nausea and throwing up since . He states he has been unable to keep his medications down. Patient was found to have subtherapeutic INR 1.2. Patient states his INR has been therapeutic and he generally has very good control over his INR. He denies any chest pain or pressure. Denies any SOB. He reports that his abdomen feels distended this morning and his stomach feels sore from throwing up. Patient states he is a former cigarette smoker and quit smoking approximately 10 years ago. He reports occasional alcohol use. * EKG reveals atrial fibrillation with controlled ventricular rate * Laboratory data: WBC 6.43. Hemoglobin 12.4. Platelet count 133. INR 1.2. Sodium 127. Potassium 3.9. BUN 13. Creatinine 0.82. Troponin negative 3. * Current home cardiac medications include aspirin 81 mg daily, metoprolol tartrate 75 mg twice a day, amlodipine 5 mg daily, lisinopril 40 mg at night, warfarin 7.5 mg Saturday and Saturday and 10 mg Saturday11/13/2022 Patient examined this morning at the bedside. Patient denies chest pain or p ressure. Patient reports he had some shortness of breath overnight but denies shortness of breath this morning. Patient states his abdominal pain has improved. He denies any further episodes of nausea or vomiting. He was evaluated by GI team yesterday with no plans for endoscopy. He remains on IV heparin. INR today 1.0. Echocardiogram completed revealing ejection fraction 50-55% and normally functioning mechanical aortic valve. 11/14/2022 Patient examined this morning at the bedside. Patient denies chest pain or pressure. He denies shortness of breath. Patient states his constipation has resolved and he finally had a bowel movement this morning. He remains on IV heparin. INR today 1.2. He received 10 mg of Coumadin last night. 11/15/2022 Patient examined this morning. Patient is sitting on the side of the bed. He is eating breakfast. He has been tolerating oral intake well without any further episodes of nausea or vomiting. He denies any chest pain or pressure. He denies any shortness of breath. He remains on IV heparin. INR today 1.4. PHYSICAL EXAM: VITAL SIGNS: Reviewed. GENERAL: Well-developed in no acute distress. HEENT: Head is normocephalic. Pupils are equal, round. Sclerae anicteric. Mucous membranes of the mouth are moist. Neck supple. No JVD or thyromegaly LUNGS: Respirations even and unlabored. Lungs essentially clear to auscultation bilaterally. HEART: Irregular rate and rhythm. S1 and S2 heard. Mechanical click auscult ated. ABDOMEN: Soft. Nondistended. Nontender. EXTREMITIES: Normal range of motion. No clubbing or cyanosis. Peripheral pulses intact. No lower extremity edema NEUROLOGIC: Awake and alert. Oriented x 3. ASSESSMENT: Abdominal pain with nausea and vomiting, improved Subtherapeutic INR, unable to keep medications down at home due to vomiting History of mechanical aortic valve replacement, 2020 at [facility] History of aortic root repair, 2019 Persistent atrial fibrillation Hypertension Former nicotine dependence, patient quit smoking 10 years ago PLAN: Continue Coumadin. Monitor INR. Continue Heparin drip until INR is at least 2.0 Continue additional cardiac medications Further recommendations pending patient's course Nurse practitioner note has been reviewed by physician. Signing provider agrees with the documented findings, assessment, and plan of care. Dr. Venegas's Addendum INR 1.4 today. We will continue IV heparin drip. Stable to be discharged when INR reaches goal of 2-3. He is asymptomatically from his atrial fibrillation. We will elect to follow up as outpatient and have discussion for rhythm control strategy for atrial fibrillation if needed. At this time and continue to control strategy I have personally seen and examined the patient. I have personally performed all the components of medical care documented above including detailed hisotry, review of system, physican exam, MDM and formulating the assessment and plan. I have personally reviewed the relevant labs, imaging and other diagnostics. I have discussed this in detail with my MISSILE TECHNICIAN who has helped me with this docum entation. I have carefully reviewed this document before finalizing. Total time spent reviewing medical chart, examining patient, counselling patient and documentation 30 mins Thank you for letting cardiology team participating in this patient's care. Dr. Ajith Venegas MD Cardiovascular Disease Objective - Vital Signs Vital signs: Vital Signs Temp 98.1 F 11/15/22 07:00 Pulse 100 11/15/22 08:18 Resp 16 11/15/22 07:00 BP 150/79 11/15/22 07:00 Pulse Ox 95 11/15/22 08:18 FiO2 Intake & Output 11/14/22 11/15/22 11/15/22 18:59 06:59 18:59 Intake Total 339.905 815.467 118 Balance 339.905 815.467 118 Intake: Intake, IV Titration 103.905 215.467 Amount Heparin Sod,Pork in 0.45% 103.905 215.467 NaCl 25,000 unit In 0.45 % NaCl 1 250ml.bag @ 11. 982 UNITS/KG/HR 10 mls/hr IV .Q24H [facility] Rx#: [id number] Oral 236 600 118 Other: Voiding Method Toilet Toilet # Voids 2 1 - Labs CBC & Chem 7: 11/14/22 05:47 11/14/22 05:47 Labs: Abnormal Lab Results - Last 24 Hours (Table) 11/15/22 11/15/22 Range/Units 06:44 06:44 PT 13.8 H (9.0-12.0) sec INR 1.4 H (<1.2) APTT 49.4 H (22.0-30.0) sec
[2022-11-15 13:43] LABS: BUN/Creat Ratio 7.29 Ratio (12.00-20.00); Blood Urea Nitrogen 5.1 mg/dL (9.0-27.0); Calcium 8.7 mg/dL (8.7-10.3); Carbon Dioxide 22.8 mmol/L (21.6-31.8); Chloride 97 mmol/L (96-109); Glucose 103 mg/dL (70-110); Potassium 3.3 mmol/L (3.5-5.5); Sodium 132 mmol/L (135-145)
[2022-11-15] MEDS ORDERED: POTASSIUM CHLORIDE ER 20 MEQ TAB.ER PO STA (13:46)
[2022-11-15 14:49] LABS: Basophils # (A) 0.02 X 10*3/uL (0.00-0.10); Basophils % (A) 0.4 %; Eosinophils # (A) 0.06 X 10*3/uL (0.04-0.35); Eosinophils % (A) 1.3 %; HCT 34.8 % (39.6-50.0); HGB 11.8 d/dL (12.0-15.0); Lymphocytes # (A) 0.48 X 10*3/uL (0.90-5.00); Lymphocytes % (A) 10.2 %; MCH 28.4 pg (27.0-32.0); MCHC 33.9 d/dL (32.0-37.0); MCV 83.9 FL (80.0-97.0); Mean Platelet Volume 12.5 FL (9.5-12.2); Monocytes # (A) 0.34 X 10*3/uL (0.20-1.00); Monocytes % (A) 7.2 %; NRBC Per 100 WBC 0 X 10*3/uL (0.00-0.01); Neutrophils # (A) 3.79 X 10*3/uL (1.80-7.70); Neutrophils % (A) 80.3 %; Platelet Count 172 X 10*3/uL (140-440); RBC 4.15 X 10*6/uL (4.40-5.60); RBC Morphology Normal (Normal); RDW 13.5 % (11.5-14.5); WBC 4.72 X 10*3/uL (4.50-10.00)
[2022-11-15] MEDS ORDERED: WARFARIN 10 MG TAB PO ONE (18:00)
[2022-11-16] MEDS: HYDROmorphone 1 MG/ML 1 ML SYRINGE IVP PRN ×6 (01:00→21:04)
--- NOTE | 2022-11-16 04:02 | P.PN ---
Subjective Progress Note Date: 11/13/22 Patient is a 62-year-old male with a past medical history of persistent atrial fibrillation after his open heart surgery, aortic and mitral valve replacement, on anticoagulation with Coumadin, prior history of smoking and daily alcohol use presents to ER with complaints of nausea and vomiting. Patient was also having upper abdominal discomfort mainly across the upper chest. Patient was seen at [facility] prior to arrival. Patient also complaining of back pain. He is unable keep down anything. CT of abdomen done at [facility] showed cholelithiasis without evidence of cholecystitis. Hiatal hernia and no acute process. CT PE showed no evidence of PE. Patient was transferred to [facility] for further evaluation. On admission EKG showed atrial fibrillation with heart rate of 91. Laboratory data showed WBC 6.6 hemoglobin 14.4 and platelets 132 Sodium 127 potassium 3.9 chloride 93 bicarb is 24 BUN 13 and creatinine 0.8 and blood sugar is 112 and total bilirubin level is 2.7. Troponin x3 negative. Lipase level is 115 and coronavirus PCR not detected. INR is 1.2 11/13/22 Patient is currently sitting on side of the road. Awake alert oriented x3 no complaints of chest pain. Shortness of breath is better. Nausea is also improved and patient is able to tolerate oral intake. Continued on PPI. Otherwise patient denies any complaints of fever or chills. Procalcitonin level is elevated. Started on antibiotics empirically with ceftriaxone and follow-up chest x-ray and UA report. Cardiology is on board. Patient is subtherapeutic. Laboratory data showed WBC 4.8 hemoglobin 11.8 and platelets 124 Sodium 126 potassium 3.4 chloride 93 bicarb is 20.3 BUN 13.6 and creatinine 0.8. Procalcitonin level is 0.87. Current medications reviewed. Objective - Vital Signs Vital signs: Vital Signs Temp 99.7 F H 11/13/22 19:05 Pulse 96 11/13/22 20:27 Resp 19 11/13/22 19:05 BP 113/77 11/13/22 19:05 Pulse Ox 93 L 11/13/22 19:05 FiO2 Intake & Output 11/13/22 11/13/22 11/14/22 06:59 18:59 06:59 Intake Total 221.868 326.132 Balance 221.868 326.132 Intake: Intake, IV Titration 221.868 28.132 Amount Heparin Sod,Pork in 0.45% 221.868 28.132 NaCl 25,000 unit In 0.45 % NaCl 1 250ml.bag @ 11. 982 UNITS/KG/HR 10 mls/hr IV .Q24H [facility] Rx#: [id number] Oral 298 Other: # Voids 1 2 - Exam PHYSICAL EXAMINATION: Patient is lying in the bed comfortably, no acute distress, awake alert and oriented.. HEENT: Normocephalic. Neck is supple. Pupils reactive. Nostrils clear. Oral cavity is moist. Neck reveals no JVD, carotid bruits, or thyromegaly. CHEST EXAMINATION: Trachea is central. Symmetrical expansion. Left-sided bronchial sounds. Mild expiratory wheeze. Nonlabored breathing.. CARDIAC: Normal S1, S2 with no gallops. Metallic valve ABDOMEN: Soft. Bowel sounds present. Nontender. No organomegaly. No abdominal bruits. Extremities: reveal no edema. No clubbing or cyanosis Neurologically awake, alert, oriented x3 with well-coordinated movements. No focal deficits noted Skin: No rash or skin lesions. Psychiatric: Coperative. Nonsuicidal, Musculoskeletal: No joint swelling or deformity. Normal range of motion. - Labs CBC & Chem 7: 11/15/22 06:44 11/15/22 06:44 Labs: Abnormal Lab Results - Last 24 Hours (Table) 11/12/22 11/13/22 11/13/22 Range/Units 21:30 05:32 05:32 RBC (4.40-5.60) X 10*6/uL Hgb (12.0-15.0) d/dL Hct (39.6-50.0) % Plt Count (140-440) X 10*3/uL Lymphocytes # (0.90-5.00) X 10*3/uL Eosinophils # (0.04-0.35) X 10*3/uL APTT 44.2 H 34.8 H (22.0-30.0) sec Sodium (135-145) mmol/L Potassium (3.5-5.5) mmol/L Chloride (96-109) mmol/L Carbon Dioxide (21.6-31.8) mmol/L Anion Gap (4.00-12.00) mmol/L Calcium (8.7-10.3) mg/dL Procalcitonin 0.87 H (0.02-0.09) ng/mL 11/13/22 11/13/22 11/13/22 Range/Units 05:32 05:32 12:13 RBC 4.13 L (4.40-5.60) X 10*6/uL Hgb 11.8 L (12.0-15.0) d/dL Hct 34.2 L (39.6-50.0) % Plt Count 124 L (140-440) X 10*3/uL Lymphocytes # 0.32 L (0.90-5.00) X 10*3/uL Eosinophils # 0 L (0.04-0.35) X 10*3/uL APTT 37.8 H (22.0-30.0) sec Sodium 126 L (135-145) mmol/L Potassium 3.4 L (3.5-5.5) mmol/L Chloride 93 L (96-109) mmol/L Carbon Dioxide 20.3 L (21.6-31.8) mmol/L Anion Gap 12.70 H (4.00-12.00) mmol/L Calcium 8.0 L (8.7-10.3) mg/dL Procalcitonin (0.02-0.09) ng/mL 11/13/22 Range/Units 19:36 RBC (4.40-5.60) X 10*6/uL Hgb (12.0-15.0) d/dL Hct (39.6-50.0) % Plt Count (140-440) X 10*3/uL Lymphocytes # (0.90-5.00) X 10*3/uL Eosinophils # (0.04-0.35) X 10*3/uL APTT 48.8 H (22.0-30.0) sec Sodium (135-145) mmol/L Potassium (3.5-5.5) mmol/L Chloride (96-109) mmol/L Carbon Dioxide (21.6-31.8) mmol/L Anion Gap (4.00-12.00) mmol/L Calcium (8.7-10.3) mg/dL Procalcitonin (0.02-0.09) ng/mL Assessment and Plan Assessment: Intractable nausea and vomiting and diarrhea.Improved now. Possible gastroenteritis Daily alcohol use Fever Tmax 100.1, eleavted pro calcitonin Atrial fibrillation persistent. Rate is controlled. Subtherapeutic INR level History of mitral and tricuspid valve replacement at [facility] and also aortic root repair in 2019 Hypertension Chronic low back pain Prior history of smoking Daily alcohol use and marijuana use Plan: Patient will be continued on telemetry monitoring. Continue with PPI 40 mg twice daily and symptomatic management for nausea and vomiting. CT of the abdomen pelvis and CT PE was done at [facility]. Report rev iewed. Follow-up repeat chest x-ray and UA. Coronavirus PCR will be sent. Patient was started ceftriaxone empirically due to elevated procalcitonin level and septic work-up is pending. Patient was started on heparin drip due to subtherapeutic INR level. [facility] protocol Cardiology and GI is on board. Follow-up closely. Time with Patient: Greater than 30
--- NOTE | 2022-11-16 04:04 | P.PN ---
Subjective Progress Note Date: 11/14/22 Patient is a 62-year-old male with a past medical history of persistent atrial fibrillation after his open heart surgery, aortic and mitral valve replacement, on anticoagulation with Coumadin, prior history of smoking and daily alcohol use presents to ER with complaints of nausea and vomiting. Patient was also having upper abdominal discomfort mainly across the upper chest. Patient was seen at [facility] prior to arrival. Patient also complaining of back pain. He is unable keep down anything. CT of abdomen done at [facility] showed cholelithiasis without evidence of cholecystitis. Hiatal hernia and no acute process. CT PE showed no evidence of PE. Patient was transferred to [facility] for further evaluation. On admission EKG showed atrial fibrillation with heart rate of 91. Laboratory data showed WBC 6.6 hemoglobin 14.4 and platelets 132 Sodium 127 potassium 3.9 chloride 93 bicarb is 24 BUN 13 and creatinine 0.8 and blood sugar is 112 and total bilirubin level is 2.7. Troponin x3 negative. Lipase level is 115 and coronavirus PCR not detected. INR is 1.2 11/13/22 Patient is currently sitting on side of the road. Awake alert oriented x3 no complaints of chest pain. Shortness of breath is better. Nausea is also improved and patient is able to tolerate oral intake. Continued on PPI. Otherwise patient denies any complaints of fever or chills. Procalcitonin level is elevated. Started on antibiotics empirically with ceftriaxone and follow-up chest x-ray and UA report. Cardiology is on board. Patient is subtherapeutic. Laboratory data showed WBC 4.8 hemoglobin 11.8 and platelets 124 Sodium 126 potassium 3.4 chloride 93 bicarb is 20.3 BUN 13.6 and creatinine 0.8. Procalcitonin level is 0.87. 11/14/2022 Patient is currently resting in the bed. Awake X3. No Complaints of Chest Pain. Shortness of Breath Is Much Improved. Cough Also Improved. No Nausea Vomiting. Tolerating Oral Diet. Patient Has Been Afebrile Today. Continued on Antibiotics Ceftriaxone. Chest X-Ray Showed No Acute Pulmonary Process. Urinalysis Is Negative for Infection. Patient Is on Heparin Drip Due To Subtherapeutic INR Level. Cardiology Is on Board. Current medications reviewed. Objective - Vital Signs Vital signs: Vital Signs Temp 97.5 F L 11/14/22 19:37 Pulse 80 11/14/22 20:27 Resp 16 11/14/22 19:37 BP 136/83 11/14/22 19:37 Pulse Ox 94 L 11/14/22 19:37 FiO2 Intake & Output 11/14/22 11/14/22 11/15/22 06:59 18:59 06:59 Intake Total 251.271 339.905 Balance 251.271 339.905 Intake: Intake, IV Titration 251.271 103.905 Amount Heparin Sod,Pork in 0.45% 251.271 103.905 NaCl 25,000 unit In 0.45 % NaCl 1 250ml.bag @ 11. 982 UNITS/KG/HR 10 mls/hr IV .Q24H [facility] Rx#: [id number] Oral 236 Other: Voiding Method Toilet Toilet # Voids 1 2 1 - Exam PHYSICAL EXAMINATION: Patient is lying in the bed comfortably, no acute distress, awake alert and oriented.. HEENT: Normocephalic. Neck is supple. Pupils reactive. Nostrils clear. Oral cavity is moist. Neck reveals no JVD, carotid bruits, or thyromegaly. CHEST EXAMINATION: Trachea is central. Symmetrical expansion. . Mild expiratory wheeze. Nonlabored breathing.. CARDIAC: Normal S1, S2 with no gallops. Metallic valve ABDOMEN: Soft. Bowel sounds present. Nontender. No organomegaly. No abdominal bruits. Extremities: reveal no edema. No clubbing or cyanosis Neurologically awake, alert, oriented x3 with well-coordinated movements. No focal deficits noted Skin: No rash or skin lesions. Psychiatric: Coperative. Nonsuicidal, Musculoskeletal: No joint swelling or deformity. Normal range of motion. - Labs CBC & Chem 7: 11/15/22 06:44 11/15/22 06:44 Labs: Abnormal Lab Results - Last 24 Hours (Table) 11/14/22 11/14/22 11/14/22 Range/Units 05:47 05:47 05:47 RBC 3.90 L (4.40-5.60) X 10*6/uL Hgb 11.0 L (12.0-15.0) d/dL Hct 33.3 L (39.6-50.0) % Plt Count 129 L (140-440) X 10*3/uL MPV 12.4 H (9.5-12.2) FL Lymphocytes # 0.56 L (0.90-5.00) X 10*3/uL Eosinophils # 0.02 L (0.04-0.35) X 10*3/uL PT 12.4 H (9.0-12.0) sec INR 1.2 H (<1.2) APTT 54.4 H (22.0-30.0) sec Sodium 131 L (135-145) mmol/L BUN 8.0 L (9.0-27.0) mg/dL BUN/Creatinine Ratio 10.00 L (12.00-20.00) Ratio Calcium 8.0 L (8.7-10.3) mg/dL Assessment and Plan Assessment: Intractable nausea and vomiting and diarrhea.Improved now. Possible gastroenteritis Daily alcohol use Fever Tmax 100.1, eleavted pro calcitonin Atrial fibrillation persistent. Rate is controlled. Subtherapeutic INR level History of mitral and tricuspid valve replacement at [facility] and also aortic root repair in 2019 Hypertension Chronic low back pain Prior history of smoking Daily alcohol use and marijuana use Plan: Patient will be continued on telemetry monitoring. Continue with PPI 40 mg twice daily and symptomatic management for nausea and vomiting. CT of the abdomen pelvis and CT PE was done at [facility]. Report reviewed. Chest x-ray and UA negative process. Coronavirus PCR not detected.. Patient was started ceftriaxone empirically due to elevated procalcitonin level and septic work-up is pending. Patient was started on heparin drip due to subtherapeutic INR level. [facility] protocol Cardiology and GI is on board. Follow-up closely. Time with Patient: Greater than 30
--- NOTE | 2022-11-16 04:08 | P.PN ---
Subjective Progress Note Date: 11/15/22 Patient is a 62-year-old male with a past medical history of persistent atrial fibrillation after his open heart surgery, aortic and mitral valve replacement, on anticoagulation with Coumadin, prior history of smoking and daily alcohol use presents to ER with complaints of nausea and vomiting. Patient was also having upper abdominal discomfort mainly across the upper chest. Patient was seen at [facility] prior to arrival. Patient also complaining of back pain. He is unable keep down anything. CT of abdomen done at [facility] showed cholelithiasis without evidence of cholecystitis. Hiatal hernia and no acute process. CT PE showed no evidence of PE. Patient was transferred to [facility] for further evaluation. On admission EKG showed atrial fibrillation with heart rate of 91. Laboratory data showed WBC 6.6 hemoglobin 14.4 and platelets 132 Sodium 127 potassium 3.9 chloride 93 bicarb is 24 BUN 13 and creatinine 0.8 and blood sugar is 112 and total bilirubin level is 2.7. Troponin x3 negative. Lipase level is 115 and coronavirus PCR not detected. INR is 1.2 11/13/22 Patient is currently sitting on side of the road. Awake alert oriented x3 no complaints of chest pain. Shortness of breath is better. Nausea is also improved and patient is able to tolerate oral intake. Continued on PPI. Otherwise patient denies any complaints of fever or chills. Procalcitonin level is elevated. Started on antibiotics empirically with ceftriaxone and follow-up chest x-ray and UA report. Cardiology is on board. Patient is subtherapeutic. Laboratory data showed WBC 4.8 hemoglobin 11.8 and platelets 124 Sodium 126 potassium 3.4 chloride 93 bicarb is 20.3 BUN 13.6 and creatinine 0.8. Procalcitonin level is 0.87. 11/14/2022 Patient is currently resting in the bed. Awake X3. No Complaints of Chest Pain. Shortness of Breath Is Much Improved. Cough Also Improved. No Nausea Vomiting. Tolerating Oral Diet. Patient Has Been Afebrile Today. Continued on Antibiotics Ceftriaxone. Chest X-Ray Showed No Acute Pulmonary Process. Urinalysis Is Negative for Infection. Patient Is on Heparin Drip Due To Subtherapeutic INR Level. Cardiology Is on Board. 11/15/2022 Patient is currently lying in bed. Awake alert and oriented x3. Able to ambulate without much shortness of breath. Tolerating oral diet. No excessive nausea vomiting. No headache or dizziness or lightheadedness. No chest pain or shortness of breath. No cough or sputum production. No further episodes of fever and Tmax 99.5. Continued on heparin drip due to subtherapeutic INR level 1.4 today. Laboratory pressure WBC 4.7 hemoglobin 11.8 and platelets 172 Sodium 132 potassium 3.3 which is being replaced. BUN 5.1 and creatinine 0.7 and calcium 8.7. Current medications reviewed. Objective - Vital Signs Vital signs: Vital Signs Temp 97.8 F 11/15/22 19:30 Pulse 88 11/15/22 21:11 Resp 20 11/15/22 20:03 BP 150/80 11/15/22 19:30 Pulse Ox 98 11/15/22 19:30 FiO2 Intake & Output 11/15/22 11/15/22 11/16/22 06:59 18:59 06:59 Intake Total 815.467 536 Balance 815.467 536 Intake: Intake, IV Titration 215.467 300 Amount Heparin Sod,Pork in 0.45% 215.467 250 NaCl 25,000 unit In 0.45 % NaCl 1 250ml.bag @ 11. 982 UNITS/KG/HR 10 mls/hr IV .Q24H ROB Rx#: [id number] cefTRIAXone 1 gm In 50 Sodium Chloride 0.9% 50 ml @ 100 mls/hr IVPB Q24HR ROB Rx#:[id number] Oral 600 236 Other: Voiding Method Toilet Toilet # Voids 1 1 - Exam PHYSICAL EXAMINATION: Patient is lying in the bed comfortably, no acute distress, awake alert and oriented.. HEENT: Normocephalic. Neck is supple. Pupils reactive. Nostrils clear. Oral cavity is moist. Neck reveals no JVD, carotid bruits, or thyromegaly. CHEST EXAMINATION: Trachea is central. Symmetrical expansion. . no wheeze. Nonlabored breathing.. CARDIAC: Normal S1, S2 with no gallops. Metallic valve ABDOMEN: Soft. Bowel sounds present. Nontender. No organomegaly. No abdominal bruits. Extremities: reveal no edema. No clubbing or cyanosis Neurologically awake, alert, oriented x3 with well-coordinated movements. No focal deficits noted Skin: No rash or skin lesions. Psychiatric: Coperative. Nonsuicidal, Musculoskeletal: No joint swelling or deformity. Normal range of motion. - Labs CBC & Chem 7: 11/15/22 06:44 11/15/22 06:44 Labs: Abnormal Lab Results - Last 24 Hours (Table) 11/15/22 11/15/22 11/15/22 Range/Units 06:44 06:44 06:44 RBC 4.15 L (4.40-5.60) X 10*6/uL Hgb 11.8 L (12.0-15.0) d/dL Hct 34.8 L (39.6-50.0) % MPV 12.5 H (9.5-12.2) FL Lymphocytes # 0.48 L (0.90-5.00) X 10*3/uL PT 13.8 H (9.0-12.0) sec INR 1.4 H (<1.2) APTT 49.4 H (22.0-30.0) sec Sodium (135-145) mmol/L Potassium (3.5-5.5) mmol/L Anion Gap (4.00-12.00) mmol/L BUN (9.0-27.0) mg/dL BUN/Creatinine Ratio (12.00-20.00) Ratio 11/15/22 Range/Units 06:44 RBC (4.40-5.60) X 10*6/uL Hgb (12.0-15.0) d/dL Hct (39.6-50.0) % MPV (9.5-12.2) FL Lymphocytes # (0.90-5.00) X 10*3/uL PT (9.0-12.0) sec INR (<1.2) APTT (22.0-30.0) sec Sodium 132 L (135-145) mmol/L Potassium 3.3 L (3.5-5.5) mmol/L Anion Gap 12.20 H (4.00-12.00) mmol/L BUN 5.1 L (9.0-27.0) mg/dL BUN/Creatinine Ratio 7.29 L (12.00-20.00) Ratio Assessment and Plan Assessment: Intractable nausea and vomiting and diarrhea.Improved now. Possible gastroenteritis Daily alcohol use Fever Tmax 100.1, eleavted pro calcitonin. Possible tracheobronchitis. Atrial fibrillation persistent. Rate is controlled. Subtherapeutic INR level History of mitral and tricuspid valve replacement at [facility] and also aortic root repair in 2019 Hypertension Chronic low back pain Prior history of smoking Daily alcohol use and marijuana use Plan: Patient will be continued on telemetry monitoring. Continue with PPI 40 mg twice daily and symptomatic management for nausea and vomiting. CT of the abdomen pelvis and CT PE was done at [facility]. Report reviewed. Chest x-ray and UA negative process. Coronavirus PCR not detected.. Patient was started ceftriaxone empirically due to elevated procalcitonin level and septic work-up is negatieve. Antibiotics will be changed to azithromycin Patient was started on heparin drip due to subtherapeutic INR level. [facility] protocol Cardiology and GI is on board. Follow-up closely. Time with Patient: Greater than 30
[2022-11-16 06:20] LABS: INR 1.5 (<1.2); Prothrombin Time 15.4 sec (9.0-12.0)
[2022-11-16] MEDS: HEPARIN SOD,PORK IN 0.45% NACL 25,000 UNIT in 0.45% NACL 1 250ML.BAG IV SCH ×2 (06:51→20:05)
[2022-11-16] MEDS: IPRATROPIUM-ALBUTEROL 3 ML NEB INHALATION SCH ×4 (08:07→19:45)
[2022-11-16 08:22] LABS: HCT 33.1 % (39.6-50.0); MCH 28.3 pg (27.0-32.0); MCHC 33.2 d/dL (32.0-37.0); MCV 85.1 FL (80.0-97.0); Mean Platelet Volume 12.2 FL (9.5-12.2); NRBC Per 100 WBC 0 X 10*3/uL (0.00-0.01); Platelet Count 200 X 10*3/uL (140-440); RBC 3.89 X 10*6/uL (4.40-5.60); RDW 13.6 % (11.5-14.5); WBC 4.09 X 10*3/uL (4.50-10.00)
[2022-11-16] MEDS: amLODIPine 5 MG TAB PO SCH (08:37)
[2022-11-16] MEDS: METOPROLOL TARTRATE 25 MG TAB PO SCH ×2 (08:37→19:51)
[2022-11-16] MEDS: ASPIRIN 81 MG PO SCH (08:37)
[2022-11-16] MEDS: THIAMINE 100 MG TAB PO SCH (08:37)
[2022-11-16] MEDS: AZITHROMYCIN 500 MG TAB PO SCH (08:37)
[2022-11-16] MEDS: PANTOPRAZOLE 40 MG/10 ML VIAL IVP SCH ×2 (08:38→19:50)
[2022-11-16 09:08] LABS: Basophils # (A) 0.02 X 10*3/uL (0.00-0.10); Basophils % (A) 0.5 %; Eosinophils # (A) 0.04 X 10*3/uL (0.04-0.35); Lymphocytes # (A) 0.67 X 10*3/uL (0.90-5.00); Lymphocytes % (A) 16.4 %; Monocytes # (A) 0.31 X 10*3/uL (0.20-1.00); Monocytes % (A) 7.6 %; Neutrophils # (A) 3.02 X 10*3/uL (1.80-7.70); Neutrophils % (A) 73.8 %; RBC Morphology Normal (Normal)
--- NOTE | 2022-11-16 09:56 | P.PN ---
Subjective HISTORY OF PRESENT ILLNESS: This is a 62-year-old male with a past medical history significant for atrial fibrillation after his open-heart surgery, aortic root repair, and previous aortic valve replacement. Patient follows with a airplane flight attendant supervisor in [place]. We have been asked to see the patient in consultation for subtherapeutic INR and atrial fibrillation. Patient examined at the bedside. Patient states on he began feeling unwell. He states that he has been having some epigastric tenderness. He reports nausea and throwing up since . He states he has been unable to keep his medications down. Patient was found to have subtherapeutic INR 1.2. Patient states his INR has been therapeutic and he generally has very good control over his INR. He denies any chest pain or pressure. Denies any SOB. He reports that his abdomen feels distended this morning and his stomach feels sore from throwing up. Patient states he is a former cigarette smoker and quit smoking approximately 10 years ago. He reports occasional alcohol use. * EKG reveals atrial fibrillation with controlled ventricular rate * Laboratory data: WBC 6.43. Hemoglobin 12.4. Platelet count 133. INR 1.2. Sodium 127. Potassium 3.9. BUN 13. Creatinine 0.82. Troponin negative 3. * Current home cardiac medications include aspirin 81 mg daily, metoprolol tartrate 75 mg twice a day, amlodipine 5 mg daily, lisinopril 40 mg at night, warfarin 7.5 mg Saturday and Saturday and 10 mg Saturday11/13/2022 Patient examined this morning at the bedside. Patient denies chest pain or p ressure. Patient reports he had some shortness of breath overnight but denies shortness of breath this morning. Patient states his abdominal pain has improved. He denies any further episodes of nausea or vomiting. He was evaluated by GI team yesterday with no plans for endoscopy. He remains on IV heparin. INR today 1.0. Echocardiogram completed revealing ejection fraction 50-55% and normally functioning mechanical aortic valve. 11/14/2022 Patient examined this morning at the bedside. Patient denies chest pain or pressure. He denies shortness of breath. Patient states his constipation has resolved and he finally had a bowel movement this morning. He remains on IV heparin. INR today 1.2. He received 10 mg of Coumadin last night. 11/15/2022 Patient examined this morning. Patient is sitting on the side of the bed. He is eating breakfast. He has been tolerating oral intake well without any further episodes of nausea or vomiting. He denies any chest pain or pressure. He denies any shortness of breath. He remains on IV heparin. INR today 1.4. 11/16/2022 Patient examined this morning at the bedside. Patient denies chest pain or pressure. He denies shortness of breath. Patient remains on IV heparin. INR today 1.5. He received 10 mg of Coumadin last night. He is scheduled to receive an additional 10 mg of Coumadin tonight. PHYSICAL EXAM: VITAL SIGNS: Reviewed. GENERAL: Well-developed in no acute distress. HEENT: Head is normocephalic. Pupils are equal, round. Sclerae anicteric. Mucous membranes of the mouth are moist. Neck supple. No JVD or thyromegaly LUNGS: Respirations even and unlabored. Lungs essentially clear to auscultation bilaterally. HEART: Irregular rate and rhythm. S1 and S2 heard. Mechanical click auscultated. ABDOMEN: Soft. Nondistended. Nontender. EXTREMITIES: Normal range of motion. No clubbing or cyanosis. Peripheral pulses intact. No lower extremity edema NEUROLOGIC: Awake and alert. Oriented x 3. ASSESSMENT: Abdominal pain with nausea and vomiting, improved Subtherapeutic INR, unable to keep medications down at home due to vomiting History of mechanical aortic valve replacement, 2019 at [facility] History of aortic root repair, 2019 Persistent atrial fibrillation Hypertension Former nicotine dependence, patient quit smoking 10 years ago PLAN: Continue Coumadin. Monitor INR. Continue Heparin drip until INR is at least 2.0 Continue additional cardiac medications Discussed possible cardioversion with patient. He may further discuss this on an outpatient basis with his primary airplane flight attendant supervisor Further recommendations pending patient's course Nurse practitioner note has been reviewed by physician. Signing provider agrees with the documented findings, assessment, and plan of care. Objective - Vital Signs Vital signs: Vital Signs Temp 98.2 F 11/16/22 07:50 Pulse 95 11/16/22 07:50 Resp 16 11/16/22 07:50 BP 163/95 11/16/22 07:50 Pulse Ox 94 L 11/16/22 08:07 FiO2 Intake & Output 11/15/22 11/16/22 11/16/22 18:59 06:59 18:59 Intake Total 536 250 31.968 Balance 536 250 31.968 Intake: Intake, IV Titration 300 250 31.968 Amount Heparin Sod,Pork in 0.45% 250 250 31.968 NaCl 25,000 unit In 0.45 % NaCl 1 250ml.bag @ 11. 982 UNITS/KG/HR 10 mls/hr IV .Q24H ROB Rx#: [id number] cefTRIAXone 1 gm In 50 Sodium Chloride 0.9% 50 ml @ 100 mls/hr IVPB Q24HR ROB Rx#:[id number] Oral 236 Other: Voiding Method Toilet # Voids 2 - Labs CBC & Chem 7: 11/16/22 05:09 11/15/22 06:44 Labs: Abnormal Lab Results - Last 24 Hours (Table) 11/15/22 11/15/22 11/16/22 Range/Units 06:44 06:44 05:09 WBC (4.50-10.00) X 10*3/uL RBC 4.15 L (4.40-5.60) X 10*6/uL Hgb 11.8 L (12.0-15.0) d/dL Hct 34.8 L (39.6-50.0) % MPV 12.5 H (9.5-12.2) FL Lymphocytes # 0.48 L (0.90-5.00) X 10*3/uL PT (9.0-12.0) sec INR (<1.2) APTT 45.1 H (22.0-30.0) sec Sodium 132 L (135-145) mmol/L Potassium 3.3 L (3.5-5.5) mmol/L Anion Gap 12.20 H (4.00-12.00) mmol/L BUN 5.1 L (9.0-27.0) mg/dL BUN/Creatinine Ratio 7.29 L (12.00-20.00) Ratio Procalcitonin (0.02-0.09) ng/mL 11/16/22 11/16/22 11/16/22 Range/Units 05:09 05:09 05:09 WBC 4.09 L (4.50-10.00) X 10*3/uL RBC 3.89 L (4.40-5.60) X 10*6/uL Hgb 11.0 L (12.0-15.0) d/dL Hct 33.1 L (39.6-50.0) % MPV (9.5-12.2) FL Lymphocytes # 0.67 L (0.90-5.00) X 10*3/uL PT 15.4 H (9.0-12.0) sec INR 1.5 H (<1.2) APTT (22.0-30.0) sec Sodium (135-145) mmol/L Potassium (3.5-5.5) mmol/L Anion Gap (4.00-12.00) mmol/L BUN (9.0-27.0) mg/dL BUN/Creatinine Ratio (12.00-20.00) Ratio Procalcitonin 0.28 H (0.02-0.09) ng/mL
[2022-11-16 13:00] VITALS: BMI 24.3
--- NOTE | 2022-11-16 14:20 | P.PN ---
Subjective Patient is a 62-year-old male with a past medical history of persistent atrial fibrillation after his open heart surgery, aortic and mitral valve replacement, on anticoagulation with Coumadin, prior history of smoking and daily alcohol use presents to ER with complaints of nausea and vomiting. Patient was also having upper abdominal discomfort mainly across the upper chest. Patient was seen at [facility] prior to arrival. Patient also complaining of back pain. He is unable keep down anything. CT of abdomen done at [facility] showed cholelithiasis without evidence of cholecystitis. Hiatal hernia and no acute process. CT PE showed no evidence of PE. Patient was transferred to [facility] for further evaluation. On admission EKG showed atrial fibrillation with heart rate of 91. Laboratory data showed WBC 6.6 hemoglobin 14.4 and platelets 132 Sodium 127 potassium 3.9 chloride 93 bicarb is 24 BUN 13 and creatinine 0.8 and blood sugar is 112 and total bilirubin level is 2.7. Troponin x3 negative. Lipase level is 115 and coronavirus PCR not detected. INR is 1.2 11/13/22 Patient is currently sitting on side of the road. Awake alert oriented x3 no complaints of chest pain. Shortness of breath is better. Nausea is also improved and patient is able to tolerate oral intake. Continued on PPI. Otherwise patient denies any complaints of fever or chills. Procalcitonin level is elevated. Started on antibiotics empirically with ceftriaxone and follow-up chest x-ray and UA report. Cardiology is on board. Patient is subtherapeutic. Laboratory data showed WBC 4.8 hemoglobin 11.8 and platelets 124 Sodium 126 potassium 3.4 chloride 93 bicarb is 20.3 BUN 13.6 and creatinine 0.8. Procalcitonin level is 0.87. 11/14/2022 Patient is currently resting in the bed. Awake X3. No Complaints of Chest Pain. Shortness of Breath Is Much Improved. Cough Also Improved. No Nausea Vomiting. Tolerating Oral Diet. Patient Has Been Afebrile Today. Continued on Antibiotics Ceftriaxone. Chest X-Ray Showed No Acute Pulmonary Process. Urinalysis Is Negative for Infection. Patient Is on Heparin Drip Due To Subtherapeutic INR Level. Cardiology Is on Board. 11/15/2022 Patient is currently lying in bed. Awake alert and oriented x3. Able to ambulate without much shortness of breath. Tolerating oral diet. No excessive nausea vomiting. No headache or dizziness or lightheadedness. No chest pain or shortness of breath. No cough or sputum production. No further episodes of fever and Tmax 99.5. Continued on heparin drip due to subtherapeutic INR level 1.4 today. Laboratory pressure WBC 4.7 hemoglobin 11.8 and platelets 172 Sodium 132 potassium 3.3 which is being replaced. BUN 5.1 and creatinine 0.7 and calcium 8.7. 11/16/2022 Patient's symptoms improving, no more nausea vomiting and diarrhea and he valeri erates diet well No chest pain dyspnea or dizziness. No significant plaque pain. He states that he is walking fine and he does not need physical therapy. INR today is still subtherapeutic and cartilage team, to continue with heparin drip for now for urgent: INR 2.3. Patient denies any signs symptoms of depression or so sinus irrigation Objective - Vital Signs Vital signs: Vital Signs Temp 98.2 F 11/16/22 07:50 Pulse 95 11/16/22 07:50 Resp 16 11/16/22 07:50 BP 163/95 11/16/22 07:50 Pulse Ox 94 L 11/16/22 08:07 FiO2 Intake & Output 11/15/22 11/16/22 11/16/22 18:59 06:59 18:59 Intake Total 536 250 271.968 Balance 536 250 271.968 Weight 83.461 kg Intake: Intake, IV Titration 300 250 31.968 Amount Heparin Sod,Pork in 0.45% 250 250 31.968 NaCl 25,000 unit In 0.45 % NaCl 1 250ml.bag @ 11. 982 UNITS/KG/HR 10 mls/hr IV .Q24H ROB Rx#: [id number] cefTRIAXone 1 gm In 50 Sodium Chloride 0.9% 50 ml @ 100 mls/hr IVPB Q24HR ROB Rx#:[id number] Oral 236 240 Other: Voiding Method Toilet Toilet # Voids 2 - Exam GENERAL: The patient is alert and oriented x3, not in any acute distress. Well developed, well nourished. HEENT: Pupils are round and equally reacting to light. EOMI. No scleral icterus. No conjunctival pallor. Normocephalic, atraumatic. No pharyngeal erythema. No thyromegaly. CARDIOVASCULAR: S1 and S2 present. No murmurs, rubs, or gallops. PULMONARY: Chest is clear to auscultation, no wheezing , no crackles. ABDOMEN: Soft, nontender, nondistended, normoactive bowel sounds. No palpable organomegaly. MUSCULOSKELETAL: No joint swelling or deformity. EXTREMITIES: No cyanosis, clubbing, or pedal edema. NEUROLOGICAL: Gross neurological examination did not reveal any focal deficits. SKIN: No rashes. no petechiae. - Labs CBC & Chem 7: 11/16/22 05:09 11/15/22 06:44 Labs: Abnormal Lab Results - Last 24 Hours (Table) 11/15/22 11/16/22 11/16/22 Range/Units 06:44 05:09 05:09 WBC (4.50-10.00) X 10*3/uL RBC 4.15 L (4.40-5.60) X 10*6/uL Hgb 11.8 L (12.0-15.0) d/dL Hct 34.8 L (39.6-50.0) % MPV 12.5 H (9.5-12.2) FL Lymphocytes # 0.48 L (0.90-5.00) X 10*3/uL PT 15.4 H (9.0-12.0) sec INR 1.5 H (<1.2) APTT 45.1 H (22.0-30.0) sec Procalcitonin (0.02-0.09) ng/mL 11/16/22 11/16/22 Range/Units 05:09 05:09 WBC 4.09 L (4.50-10.00) X 10*3/uL RBC 3.89 L (4.40-5.60) X 10*6/uL Hgb 11.0 L (12.0-15.0) d/dL Hct 33.1 L (39.6-50.0) % MPV (9.5-12.2) FL Lymphocytes # 0.67 L (0.90-5.00) X 10*3/uL PT (9.0-12.0) sec INR (<1.2) APTT (22.0-30.0) sec Procalcitonin 0.28 H (0.02-0.09) ng/mL Assessment and Plan Assessment: Possible acute gastroenteritis, resolved A. fib and RVR with subtherapeutic INR History of aortic stenosis status post aortic valve replacement with mechanical aortic valve History of mitral and tricuspid valve replacement at [facility] and also aortic root repair in 2019 Hypertension Chronic low back pain Prior history of smoking Daily alcohol use and marijuana use Plan: Continue with heparin drip and warfarin per pharmacy dose, patient will get Coumadin 10 mg as well as heparin drip Monitor INR Continue ceftriaxone no Symptoms of alcohol withdrawal,continue with [facility] protocol Labs and medication were reviewed.. Continue same treatment. Continue with symptomatic treatment. Resume home medication. Monitor labs and vitals. DVT and GI prophylaxis. Further recommendations as per clinical course of the patient DVT prophylaxis: heparin GI Prophylaxis: Ppi PT/OT: Pending Prognosis is guarded
[2022-11-16 14:36] LABS: BUN/Creat Ratio 5.38 Ratio (12.00-20.00); Blood Urea Nitrogen 4.3 mg/dL (9.0-27.0); Calcium 8.7 mg/dL (8.7-10.3); Carbon Dioxide 22.2 mmol/L (21.6-31.8); Chloride 96 mmol/L (96-109); Glucose 107 mg/dL (70-110); Potassium 3.4 mmol/L (3.5-5.5); Sodium 132 mmol/L (135-145)
[2022-11-16] MEDS ORDERED: POTASSIUM CHLORIDE ER 20 MEQ TAB.ER PO STA (17:09)
[2022-11-16] MEDS ORDERED: WARFARIN 10 MG TAB PO ONE (18:00)
[2022-11-17] MEDS: HYDROmorphone 1 MG/ML 1 ML SYRINGE IVP PRN ×4 (03:29→19:48)
[2022-11-17 05:45] LABS: INR 1.8 (<1.2); Prothrombin Time 18.1 sec (9.0-12.0)
[2022-11-17] MEDS: IPRATROPIUM-ALBUTEROL 3 ML NEB INHALATION SCH ×4 (08:30→17:59)
[2022-11-17] MEDS: ASPIRIN 81 MG PO SCH (08:34)
[2022-11-17] MEDS: PANTOPRAZOLE 40 MG/10 ML VIAL IVP SCH ×2 (08:34→19:49)
[2022-11-17] MEDS: AZITHROMYCIN 500 MG TAB PO SCH (08:34)
[2022-11-17] MEDS: amLODIPine 5 MG TAB PO SCH (08:34)
[2022-11-17] MEDS: THIAMINE 100 MG TAB PO SCH (08:34)
[2022-11-17] MEDS: METOPROLOL TARTRATE 25 MG TAB PO SCH ×2 (08:34→19:49)
[2022-11-17] MEDS: HEPARIN SOD,PORK IN 0.45% NACL 25,000 UNIT in 0.45% NACL 1 250ML.BAG IV SCH ×2 (09:15→20:43)
[2022-11-17 09:28] LABS: Magnesium 1.5 mg/dL (1.5-2.4); Potassium 4.3 mmol/L (3.5-5.5)
--- NOTE | 2022-11-17 11:27 | P.PN ---
Subjective HISTORY OF PRESENT ILLNESS: This is a 62-year-old male with a past medical history significant for atrial fibrillation after his open-heart surgery, aortic root repair, and previous aortic valve replacement. Patient follows with a carbon furnace operator helper in [place]. We have been asked to see the patient in consultation for subtherapeutic INR and atrial fibrillation. Patient examined at the bedside. Patient states on he began feeling unwell. He states that he has been having some epigastric tenderness. He reports nausea and throwing up since . He states he has been unable to keep his medications down. Patient was found to have subtherapeutic INR 1.2. Patient states his INR has been therapeutic and he generally has very good control over his INR. He denies any chest pain or pressure. Denies any SOB. He reports that his abdomen feels distended this morning and his stomach feels sore from throwing up. Patient states he is a former cigarette smoker and quit smoking approximately 10 years ago. He reports occasional alcohol use. * EKG reveals atrial fibrillation with controlled ventricular rate * Laboratory data: WBC 6.43. Hemoglobin 12.4. Platelet count 133. INR 1.2. Sodium 127. Potassium 3.9. BUN 13. Creatinine 0.82. Troponin negative 3. * Current home cardiac medications include aspirin 81 mg daily, metoprolol tartrate 75 mg twice a day, amlodipine 5 mg daily, lisinopril 40 mg at night, warfarin 7.5 mg Saturday and Saturday and 10 mg Saturday11/13/2022 Patient examined this morning at the bedside. Patient denies chest pain or p ressure. Patient reports he had some shortness of breath overnight but denies shortness of breath this morning. Patient states his abdominal pain has improved. He denies any further episodes of nausea or vomiting. He was evaluated by GI team yesterday with no plans for endoscopy. He remains on IV heparin. INR today 1.0. Echocardiogram completed revealing ejection fraction 50-55% and normally functioning mechanical aortic valve. 11/14/2022 Patient examined this morning at the bedside. Patient denies chest pain or pressure. He denies shortness of breath. Patient states his constipation has resolved and he finally had a bowel movement this morning. He remains on IV heparin. INR today 1.2. He received 10 mg of Coumadin last night. 11/15/2022 Patient examined this morning. Patient is sitting on the side of the bed. He is eating breakfast. He has been tolerating oral intake well without any further episodes of nausea or vomiting. He denies any chest pain or pressure. He denies any shortness of breath. He remains on IV heparin. INR today 1.4. 11/16/2022 Patient examined this morning at the bedside. Patient denies chest pain or pressure. He denies shortness of breath. Patient remains on IV heparin. INR today 1.5. He received 10 mg of Coumadin last night. He is scheduled to receive an additional 10 mg of Coumadin tonight. 11/17 Patient seen and examined. Patient denies a chest pain or pressure. Overall feeling fairly well. INR 1.8. Remains in A. fib with controlled ventricular rates. PHYSICAL EXAM: VITAL SIGNS: Reviewed. GENERAL: Well-developed in no acute distress. HEENT: Head is normocephalic. Pupils are equal, round. Sclerae anicteric. Mucous membranes of the mouth are moist. Neck supple. No JVD or thyromegaly LUNGS: Respirations even and unlabored. Lungs essentially clear to auscultation bilaterally. HEART: Irregular rate and rhythm. S1 and S2 heard. Mechanical click auscultated. ABDOMEN: Soft. Nondistended. Nontender. EXTREMITIES: Normal range of motion. No clubbing or cyanosis. Peripheral pulses intact. No lower extremity edema NEUROLOGIC: Awake and alert. Oriented x 3. ASSESSMENT: Abdominal pain with nausea and vomiting, improved Subtherapeutic INR, unable to keep medications down at home due to vomiting [facility] of [facility], 2019 Persistent atrial fibrillation Hypertension Former nicotine dependence, patient quit smoking 10 years ago PLAN: Continue Coumadin. Monitor INR. Continue Heparin drip until INR is at least 2.0 Continue additional cardiac medications Discussed possible cardioversion with patient. He may further discuss this on an outpatient basis with his primary carbon furnace operator helper Possible discharge tomorrow if INR > 2. Objective - Vital Signs Vital signs: Vital Signs Temp 97.5 F L 11/17/22 07:35 Pulse 85 11/17/22 11:17 Resp 16 11/17/22 08:00 BP 167/92 07/22/23 07:35 Pulse Ox 98 11/17/22 08:30 FiO2 Intake & Output 11/16/22 11/17/22 11/17/22 18:59 06:59 18:59 Intake Total 980.968 218.032 490 Balance 980.968 218.032 490 Weight 83.461 kg Intake: Intake, IV Titration 31.968 218.032 250 Amount Heparin Sod,Pork in 0.45% 31.968 218.032 250 NaCl 25,000 unit In 0.45 % NaCl 1 250ml.bag @ 11. 982 UNITS/KG/HR 10 mls/hr IV .Q24H [facility] Rx#: [id number] Oral 949 240 Other: Voiding Method Toilet Toilet Toilet # Voids 3 1 - Labs CBC & Chem 7: 11/16/22 05:09 11/17/22 04:55 Labs: Abnormal Lab Results - Last 24 Hours (Table) 11/16/22 11/17/22 Range/Units 05:09 04:55 PT 18.1 H (9.0-12.0) sec INR 1.8 H (<1.2) APTT 55.0 H (22.0-30.0) sec Sodium 132 L (135-145) mmol/L Potassium 3.4 L (3.5-5.5) mmol/L Anion Gap 13.80 H (4.00-12.00) mmol/L BUN 4.3 L (9.0-27.0) mg/dL BUN/Creatinine Ratio 5.38 L (12.00-20.00) Ratio
[2022-11-17] MEDS ORDERED: WARFARIN 10 MG TAB PO ONE (18:00)
[2022-11-17] MEDS ORDERED: WARFARIN 7.5 MG TAB PO ONE (18:00)
--- NOTE | 2022-11-17 18:27 | P.PN ---
Subjective Patient is a 62-year-old male with a past medical history of persistent atrial fibrillation after his open heart surgery, aortic and mitral valve replacement, on anticoagulation with Coumadin, prior history of smoking and daily alcohol use presents to ER with complaints of nausea and vomiting. Patient was also having upper abdominal discomfort mainly across the upper chest. Patient was seen at [facility] prior to arrival. Patient also complaining of back pain. He is unable keep down anything. CT of abdomen done at [facility] showed cholelithiasis without evidence of cholecystitis. Hiatal hernia and no acute process. CT PE showed no evidence of PE. Patient was transferred to [facility] for further evaluation. On admission EKG showed atrial fibrillation with heart rate of 91. Laboratory data showed WBC 6.6 hemoglobin 14.4 and platelets 132 Sodium 127 potassium 3.9 chloride 93 bicarb is 24 BUN 13 and creatinine 0.8 and blood sugar is 112 and total bilirubin level is 2.7. Troponin x3 negative. Lipase level is 115 and coronavirus PCR not detected. INR is 1.2 11/13/22 Patient is currently sitting on side of the road. Awake alert oriented x3 no complaints of chest pain. Shortness of breath is better. Nausea is also improved and patient is able to tolerate oral intake. Continued on PPI. Otherwise patient denies any complaints of fever or chills. Procalcitonin level is elevated. Started on antibiotics empirically with ceftriaxone and follow-up chest x-ray and UA report. Cardiology is on board. Patient is subtherapeutic. Laboratory data showed WBC 4.8 hemoglobin 11.8 and platelets 124 Sodium 126 potassium 3.4 chloride 93 bicarb is 20.3 BUN 13.6 and creatinine 0.8. Procalcitonin level is 0.87. 11/14/2022 Patient is currently resting in the bed. Awake X3. No Complaints of Chest Pain. Shortness of Breath Is Much Improved. Cough Also Improved. No Nausea Vomiting. Tolerating Oral Diet. Patient Has Been Afebrile Today. Continued on Antibiotics Ceftriaxone. Chest X-Ray Showed No Acute Pulmonary Process. Urinalysis Is Negative for Infection. Patient Is on Heparin Drip Due To Subtherapeutic INR Level. Cardiology Is on Board. 11/15/2022 Patient is currently lying in bed. Awake alert and oriented x3. Able to ambulate without much shortness of breath. Tolerating oral diet. No excessive nausea vomiting. No headache or dizziness or lightheadedness. No chest pain or shortness of breath. No cough or sputum production. No further episodes of fever and Tmax 99.5. Continued on heparin drip due to subtherapeutic INR level 1.4 today. Laboratory pressure WBC 4.7 hemoglobin 11.8 and platelets 172 Sodium 132 potassium 3.3 which is being replaced. BUN 5.1 and creatinine 0.7 and calcium 8.7. 11/16/2022 Patient's symptoms improving, no more nausea vomiting and diarrhea and he yolette ates diet well No chest pain dyspnea or dizziness. No significant plaque pain. He states that he is walking fine and he does not need physical therapy. INR today is still subtherapeutic and cartilage team, to continue with heparin drip for now for urgent: INR 2.3. Patient denies any signs symptoms of depression or so sinus irrigation 0 11/17/2022 Patient remained in bed comfortable. No more vomiting or diarrhea. He tolerates diet well. INR 1.8. We'll give Coumadin 7.5 mg tonight at home is taken 7.5 and 10 mg Cardiology on the case as well. Possible discharge in 24-48 hours and patient is agreeable once his INR is corrected he can go home. Objective - Vital Signs Vital signs: Vital Signs Temp 97.9 F 11/17/22 14:55 Pulse 85 11/17/22 18:11 Resp 16 11/17/22 14:55 BP 109/71 11/17/22 14:55 Pulse Ox 93 L 11/17/22 14:55 FiO2 Intake & Output 11/16/22 11/17/22 11/17/22 18:59 06:59 18:59 Intake Total 980.968 218.032 730 Balance 980.968 218.032 730 Weight 83.461 kg Intake: Intake, IV Titration 31.968 218.032 250 Amount Heparin Sod,Pork in 0.45% 31.968 218.032 250 NaCl 25,000 unit In 0.45 % NaCl 1 250ml.bag @ 11. 982 UNITS/KG/HR 10 mls/hr IV .Q24H [facility] Rx#: [id number] Oral 949 480 Other: Voiding Method Toilet Toilet Toilet # Voids 3 1 3 # Bowel Movements 1 - Exam GENERAL: The patient is alert and oriented x3, not in any acute distress. Well developed, well nourished. HEENT: Pupils are round and equally reacting to light. EOMI. No scleral icterus. No conjunctival pallor. Normocephalic, atraumatic. No pharyngeal erythema. No thyromegaly. CARDIOVASCULAR: S1 and S2 present. No murmurs, rubs, or gallops. PULMONARY: Chest is clear to auscultation, no wheezing , no crackles. ABDOMEN: Soft, nontender, nondistended, normoactive bowel sounds. No palpable organomegaly. MUSCULOSKELETAL: No joint swelling or deformity. EXTREMITIES: No cyanosis, clubbing, or pedal edema. NEUROLOGICAL: Gross neurological examination did not reveal any focal deficits. SKIN: No rashes. no petechiae. - Labs CBC & Chem 7: 11/16/22 05:09 11/17/22 04:55 Labs: Abnormal Lab Results - Last 24 Hours (Table) 11/17/22 Range/Units 04:55 PT 18.1 H (9.0-12.0) sec INR 1.8 H (<1.2) APTT 55.0 H (22.0-30.0) sec Assessment and Plan Assessment: Possible acute gastroenteritis, resolved A. fib and RVR with subtherapeutic INR History of aortic stenosis status post aortic valve replacement with mechanical aortic valve History of mitral and tricuspid valve replacement at [facility] and also aortic root repair in 2019 Hypertension Chronic low back pain Prior history of smoking Daily alcohol use and marijuana use Plan: Continue with heparin drip and warfarin per pharmacy dose, patient will get Coumadin 10 mg as well as heparin drip Monitor INR Continue ceftriaxone no Symptoms of alcohol withdrawal,continue with CIWA protocol Labs and medication were reviewed.. Continue same treatment. Continue with symptomatic treatment. Resume home medication. Monitor labs and vitals. DVT and GI prophylaxis. Further recommendations as per clinical course of the patient DVT prophylaxis: heparin GI Prophylaxis: Ppi PT/OT: Pending Prognosis is guarded
[2022-11-17] MEDS: MAGNESIUM OXIDE 400 MG TAB PO SCH (19:50)
[2022-11-18] MEDS: HYDROmorphone 1 MG/ML 1 ML SYRINGE IVP PRN ×3 (00:47→13:14)
[2022-11-18] MEDS: PANTOPRAZOLE 40 MG/10 ML VIAL IVP SCH (09:00)
[2022-11-18] MEDS: METOPROLOL TARTRATE 25 MG TAB PO SCH (09:00)
[2022-11-18] MEDS: THIAMINE 100 MG TAB PO SCH (09:00)
[2022-11-18] MEDS: AZITHROMYCIN 500 MG TAB PO SCH (09:01)
[2022-11-18] MEDS: amLODIPine 5 MG TAB PO SCH (09:01)
[2022-11-18] MEDS: MAGNESIUM OXIDE 400 MG TAB PO SCH ×2 (09:01→16:14)
[2022-11-18] MEDS: ASPIRIN 81 MG PO SCH (09:01)
[2022-11-18 09:04] LABS: Prothrombin Time 20.1 sec (9.0-12.0)
[2022-11-18 09:17] VITALS: RESP 16; TEMP 97.7
[2022-11-18] MEDS: IPRATROPIUM-ALBUTEROL 3 ML NEB INHALATION SCH ×3 (11:22→15:28)
--- NOTE | 2022-11-18 13:00 | P.PN ---
Subjective HISTORY OF PRESENT ILLNESS: This is a 62-year-old male with a past medical history significant for atrial fibrillation after his open-heart surgery, aortic root repair, and previous aortic valve replacement. 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 We have been asked to see the patient in consultation for subtherapeutic INR and atrial fibrillation. Patient examined at the bedside. Patient states on he began feeling unwell. He states that he has been having some epigastric tenderness. He reports nausea and throwing up since . He states he has been unable to keep his medications down. Patient was found to have subtherapeutic INR 1.2. Patient states his INR has been therapeutic and he generally has very good control over his INR. He denies any chest pain or pressure. Denies any SOB. He reports that his abdomen feels distended this morning and his stomach feels sore from throwing up. Patient states he is a former cigarette smoker and quit smoking approximately 10 years ago. He reports occasional alcohol use. * EKG reveals atrial fibrillation with controlled ventricular rate * Laboratory data: WBC 6.43. Hemoglobin 12.4. Platelet count 133. INR 1.2. Sodium 127. Potassium 3.9. BUN 13. Creatinine 0.82. Troponin negative 3. * Current home cardiac medications include aspirin 81 mg daily, metoprolol tartrate 75 mg twice a day, amlodipine 5 mg daily, lisinopril 40 mg at night, warfarin 7.5 mg Saturday and Saturday and 10 mg Saturday11/13/2022 Patient examined this morning at the bedside. Patient denies chest pain or pressure. Patient reports he had some shortness of breath overnight but denies shortness of breath this morning. Patient states his abdominal pain has improved. He denies any further episodes of nausea or vomiting. He was evaluated by GI team yesterday with no plans for endoscopy. He remains on IV heparin. INR today 1.0. Echocardiogram completed revealing ejection fraction 50-55% and normally functioning mechanical aortic valve. 11/14/2022 Patient examined this morning at the bedside. Patient denies chest pain or pressure. He denies shortness of breath. Patient states his constipation has resolved and he finally had a bowel movement this morning. He remains on IV heparin. INR today 1.2. He received 10 mg of Coumadin last night. 11/15/2022 Patient examined this morning. Patient is sitting on the side of the bed. He is eating breakfast. He has been tolerating oral intake well without any further episodes of nausea or vomiting. He denies any chest pain or pressure. He denies any shortness of breath. He remains on IV heparin. INR today 1.4. 11/16/2022 Patient examined this morning at the bedside. Patient denies chest pain or pressure. He denies shortness of breath. Patient remains on IV heparin. INR today 1.5. He received 10 mg of Coumadin last night. He is scheduled to receive an additional 10 mg of Coumadin tonight. 11/17 Patient seen and examined. Patient denies a chest pain or pressure. Overall feeling fairly well. INR 1.8. Remains in A. fib with controlled ventricular rates. 11/18 Patient seen and examined. INR 2.0 today. Denies any chest pain or pressure. No lightheadedness. PHYSICAL EXAM: VITAL SIGNS: Reviewed. GENERAL: Well-developed in no acute distress. HEENT: Head is normocephalic. Pupils are equal, round. Sclerae anicteric. Mucous membranes of the mouth are moist. Neck supple. No JVD or thyromegaly LUNGS: Respirations even and unlabored. Lungs essentially clear to auscultation bilaterally. HEART: Irregular rate and rhythm. S1 and S2 heard. Mechanical click auscul tated. ABDOMEN: Soft. Nondistended. Nontender. EXTREMITIES: Normal range of motion. No clubbing or cyanosis. Peripheral pulses intact. No lower extremity edema NEUROLOGIC: Awake and alert. Oriented x 3. ASSESSMENT: Abdominal pain with nausea and vomiting, improved Subtherapeutic INR, unable to keep medications down at home due to vomiting History of mechanical aortic valve replacement, 2019 at [facility] History of aortic root repair, 2019 Persistent atrial fibrillation Hypertension Former nicotine dependence, patient quit smoking 10 years ago PLAN: INR 2.0 and appears stable for discharge home today. Continue with current meds. Followup in office in 1 week. Objective - Vital Signs Vital signs: Vital Signs Temp 97.7 F 11/18/22 07:55 Pulse 75 11/18/22 08:00 Resp 16 11/18/22 08:00 BP 149/88 11/18/22 07:55 Pulse Ox 93 L 11/18/22 08:54 FiO2 Intake & Output 11/17/22 11/18/22 11/18/22 18:59 06:59 18:59 Intake Total 848 219.942 250 Balance 848 219.942 250 Intake: Intake, IV Titration 250 219.942 250 Amount Heparin Sod,Pork in 0.45% 250 219.942 250 NaCl 25,000 unit In 0.45 % NaCl 1 250ml.bag @ 11. 982 UNITS/KG/HR 10 mls/hr IV .Q24H [facility] Rx#: [id number] Oral 598 Other: Voiding Method Toilet Toilet Toilet # Voids 3 2 # Bowel Movements 1 - Labs CBC & Chem 7: 11/16/22 05:09 11/17/22 04:55 Labs: Abnormal Lab Results - Last 24 Hours (Table) 11/18/22 11/18/22 Range/Units 05:22 09:10 PT 20.1 H (9.0-12.0) sec INR 2.0 H (<1.2) APTT 94.0 H (22.0-30.0) sec
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
--- NOTE | 2022-11-18 13:36 | CT ---
EXAMINATION TYPE: CT lumbar spine wo con CT DLP: 846.6 mGycm, Automated exposure control for dose reduction was used. DATE OF EXAM: 11/18/2022 1:28 PM COMPARISON: MR C-spine/L-spine 11/08/2020. CLINICAL INDICATION:Male, 62 years old with history of Low back pain, BLE radiculopathy; PHH, Low laura k pain with bilateral extremity radiculopathy TECHNIQUE: Multiple axial images were obtained from the midportion of T11 through the sacroiliac carmela nts. Soft tissue and bone windows in coronal and sagittal planes were obtained and reviewed. FINDINGS: Alignment: There are 5 lumbar type vertebral bodies within normal alignment. Bone: No evidence of fracture is identified. Mild lower lumbar spine degenerative disc disease with disc space narrowing, endplate sclerosis, and anterior ossified ptosis. Discs: T12-L1: No spinal canal or neural foraminal stenosis is identified. L1-L2: No spinal canal or neural foraminal stenosis is identified. L2-L3: No spinal canal or neural foraminal stenosis is identified. L3-L4: Broad-based disc bulge with minimal effacement of anterior thecal sac. Bilateral facet arthrop athy. Bilateral neural foraminal stenosis. L4-L5: Broad-based disc bulge with minimal effacement of anterior thecal sac. Bilateral facet arthro milo. Bilateral neural foraminal stenosis. L5-S1: Broad-based disc bulge mild effacement of anterior thecal sac. Bilateral facet arthropathy. Bi lateral neural foraminal stenosis. Other: Small bilateral pleural effusions with associated atelectasis. Small to moderate-sized hiatal hernia. Cholelithiasis. Mild atherosclerotic calcification of the aorta and its branches. IMPRESSION: 1. No evidence of fracture of the lumbar spine. 2. Mild multilevel degenerative disc disease as described above. This is most prominent at L5-S1. 3. Small bilateral pleural effusions. 4. Cholelithiasis. 5. Small to moderate-sized hiatal hernia.
--- NOTE | 2022-11-18 14:30 | P.PN ---
Progress Note - Text Progress Note Date: 11/18/22 CT of the lumbar spine has been reviewed, No urgent/emergent surgical intervention at this time. Patient may follow up in office for further evaluation in 2 weeks. No further recommendations at this time. Our services will be signing off, please feel free to reach out with any questions or sinai rns.
[2022-11-18 16:11] VITALS: BP 136/84; PULSE 68
[2022-11-18] MEDS ORDERED: WARFARIN 10 MG TAB PO ONE (18:00)
== END 2022-11-18 16:21 | disposition home health service (06) | DRG 445 ==
LOC: EC 16:35 → 6NMEDSUR 19:38 → OBSVTOIN 11-16 08:59
PROVIDERS: ADMIT Internal Medicine; ATTEND Internal Medicine
DX: K80.20 Calculus of gallbladder without cholecystitis without obstruction (principal); E87.1 Hypo-osmolality and hyponatremia; I48.19 Other persistent atrial fibrillation; R79.1 Abnormal coagulation profile; I10 Essential (primary) hypertension; G89.29 Other chronic pain; E83.42 Hypomagnesemia; I25.10 Atherosclerotic heart disease of native coronary artery without angina pectoris; F10.90 Alcohol use, unspecified, uncomplicated; M47.26 Other spondylosis with radiculopathy, lumbar region; K21.9 Gastro-esophageal reflux disease without esophagitis; M51.16 Intervertebral disc disorders with radiculopathy, lumbar region; Z20.822 Contact with and (suspected) exposure to COVID-19; K44.9 Diaphragmatic hernia without obstruction or gangrene; Z95.2 Presence of prosthetic heart valve; Z79.01 Long term (current) use of anticoagulants; Z87.891 Personal history of nicotine dependence; Z88.6 Allergy status to analgesic agent; Z88.5 Allergy status to narcotic agent; Z95.1 Presence of aortocoronary bypass graft; Z86.79 Personal history of other diseases of the circulatory system; Z28.310 Unvaccinated for COVID-19; Z79.82 Long term (current) use of aspirin; Z79.899 Other long term (current) drug therapy
CPT/HCPCS: 36415; 71045; 72131; 80048; 80053; 81003; 82150; 83690; 83735; 84132; 84145; 84484; 85025; 85610; 85730; 87635; 93005; 93306; 94640; 94760; 96372; 96374; 96375; 99285

== ENCOUNTER → 2022-12-13 | Outpatient (CLI) | payer MEDICARE, OTHER ==
--- NOTE | 2022-12-14 14:47 | MR ---
EXAMINATION TYPE: MR lumbar spine wo con DATE OF EXAM: 12/13/2022 COMPARISON: None HISTORY: Low back pain TECHNIQUE: Multiplanar, multisequence images of the lumbar spine were acquired without IV contrast. L1-L2: Normal disc appearance without desiccation. No herniation, protrusion or disc bulging. No ca nal stenosis is present. Foramina are patent bilaterally. L2-L3: Normal disc appearance without desiccation. No herniation, protrusion or disc bulging. No ca nal stenosis is present. Foramina are patent bilaterally. L3-L4: There is mild disc desiccation with posterior disc bulge and mild effacement ventral thecal sa c. No evidence for herniation or central stenosis. Mild left foraminal encroachment. L4-L5: There is mild disc desiccation with posterior disc bulge and mild effacement ventral thecal sa c. No evidence for herniation or central stenosis. Mild bilateral foraminal encroachment. L5-S1: There is mild disc desiccation with posterior disc bulge and mild effacement ventral thecal sa c. Small left paracentral disc protrusion noted to appears to result in mild right lateral recess pauletet nosis. Left greater than right neural foraminal encroachment Lumbar segments are intact. No paraspinal masses are identified. Conus medullaris has a normal appe arance. IMPRESSION: 1. Multilevel degenerative disc disease. 2. Multilevel disc bulging with small left paracentral disc protrusion at L5-S1.
== END | disposition home or self-care (01) ==
LOC: RADMRIMAIN 15:47
DX: M51.36 Other intervertebral disc degeneration, lumbar region (principal); M51.26 Other intervertebral disc displacement, lumbar region
CPT/HCPCS: 72148

== ENCOUNTER 2023-01-29 09:02 | Inpatient (IN) | payer OTHER, MEDICARE ==
--- NOTE | 2023-01-29 09:30 | ED ---
General Adult HPI - General Chief complaint: Shortness of Breath Stated complaint: Chest Pain, SOB Time Seen by Provider: 01/29/23 09:15 Source: patient, EMS, RN notes reviewed, old records reviewed Mode of arrival: EMS Limitations: no limitations - History of Present Illness Initial comments: This is a 63-year-old male who has a past medical history significant for atrial fibrillation and he has had a mechanical valve placed in the past. Patient com es in today because he states he woke up this morning he was short of breath and having some chest heaviness. Patient states he took his metoprolol 75 mg morning. Patient denies any fever chills or cough. Patient states she's on Coumadin. Patient denies any lightheadedness or dizziness. Patient abdominal pain. Patient denies any back pain. - Related Data Home Medications Medication Instructions Recorded Confirmed Aspirin [Children's Aspirin] 81 mg PO DAILY 11/11/22 11/11/22 Lansoprazole 15 mg PO DAILY 11/11/22 11/11/22 Metoprolol Tartrate [Lopressor] 75 mg PO BID 11/11/22 11/11/22 Omeprazole 20 mg PO DAILY 11/11/22 11/11/22 Warfarin [Coumadin] 7.5 mg PO MOWEFRSA 11/11/22 11/11/22 Warfarin [Coumadin] 10 mg PO SUTUTH 11/11/22 11/11/22 amLODIPine [Norvasc] 5 mg PO DAILY 11/11/22 11/11/22 Previous Rx's Medication Instructions Recorded HYDROcodone/APAP 7.5-325MG [[place] 1 tab PO Q4H PRN 3 Days #18 tab 09/14/21 7.5-325] Albuterol Inhaler [Ventolin Hfa 2 puff INHALATION Q6H PRN #1 each 11/18/22 Inhaler] Thiamine [Vitamin B-1] 100 mg PO DAILY #30 tab 11/18/22 Allergies Allergy/AdvReac Type Severity Reaction Status Date / Time propoxyphene Allergy Rash/Hives Verified 12/04/22 14:32 [From Darvocet-N 100] acetaminophen AdvReac Rash/Hives Verified 12/04/22 14:32 [From Darvocet-N 100] amitriptyline [From Elavil] AdvReac NIGHTMARES Verified 12/04/22 14:32 hydralazine AdvReac MIGRAINES Verified 12/04/22 14:32 naproxen [From Naprosyn] AdvReac Nausea Verified 12/04/22 14:32 Review of Systems ROS Statement: Those systems with pertinent positive or pertinent negative responses have been documented in the HPI. ROS Other: All systems not noted in ROS Statement are negative. Past Medical History Past Medical History: Atrial Fibrillation, Coronary Artery Disease (CAD), Hypertension Additional Past Medical History / Comment(s): chronic lower back pain, History of Any Multi-Drug Resistant Organisms: None Reported Past Surgical History: Cardiac Valve Replacement, Coronary Bypass/CABG Additional Past Surgical History / Comment(s): right knee, jaw Past Psychological History: No Psychological Hx Reported Smoking Status: Former smoker Past Alcohol Use History: Daily Past Drug Use History: Marijuana General Exam - General Exam Comments Initial Comments: GENERAL: Patient is well-developed and well-nourished. Patient is nontoxic and well- hydrated and is in mildte distress. ENT: Neck is soft and supple. No significant lymphadenopathy is noted. Oropharynx is clear. Moist mucous membranes. Neck has full range of motion without eliciting any pain. EYES: The sclera were anicteric and conjunctiva were pink and moist. Extraocular movements were intact and pupils were equal round and reactive to light. Eyelids were unremarkable. PULMONARY: Unlabored respirations. Good breath sounds bilaterally. No audible rales rhonchi or wheezing was noted. CARDIOVASCULAR: patient is bradycardic at 40 beats a minute ABDOMEN: Soft and nontender with normal bowel sounds. SKIN: Skin is clear with no lesions or rashes and otherwise unremarkable. NEUROLOGIC: Patient is alert and oriented x3. Cranial nerves II through XII are grossly intact. Motor and sensory are also intact. Normal speech, volume and content. Symmetrical smile. MUSCULOSKELETAL: Normal extremities with adequate strength and full range of motion. No lower extremity swelling or edema. No calf tenderness. LYMPHATICS: No significant lymphadenopathy is noted PSYCHIATRIC: Normal psychiatric evaluation. Limitations: no limitations Course Vital Signs 01/29/23 01/29/23 01/29/23 09:07 09:10 09:12 Temperature 96.8 F L Pulse Rate 42 L 36 L 40 L Pulse Rate [ Chief Orthoptist ] Respiratory 17 16 18 Rate Blood Pressure 114/60 114/60 O2 Sat by Pulse 96 97 99 Oximetry 01/29/23 01/29/23 01/29/23 09:22 09:26 09:30 Temperature Pulse Rate 43 L 44 L Pulse Rate [ 40 L Chief Orthoptist ] Respiratory 18 16 Rate Blood Pressure 143/133 O2 Sat by Pulse 98 95 Oximetry 01/29/23 01/29/23 01/29/23 09:40 09:46 09:50 Temperature Pulse Rate 38 L 40 L 46 L Pulse Rate [ Chief Orthoptist ] Respiratory 16 18 15 Rate Blood Pressure 146/89 131/82 131/82 O2 Sat by Pulse 98 97 98 Oximetry 01/29/23 01/29/23 01/29/23 10:00 10:10 10:20 Temperature Pulse Rate 48 L 44 L 40 L Pulse Rate [ Chief Orthoptist ] Respiratory 20 19 36 H Rate Blood Pressure 131/82 147/106 136/79 O2 Sat by Pulse 95 98 99 Oximetry 01/29/23 01/29/23 01/29/23 10:30 10:40 10:50 Temperature Pulse Rate 38 L 40 L 43 L Pulse Rate [ Chief Orthoptist ] Respiratory 16 9 L 12 Rate Blood Pressure 136/79 135/79 141/86 O2 Sat by Pulse 97 98 93 L Oximetry 01/29/23 01/29/23 11:00 11:10 Temperature Pulse Rate 47 L 41 L Pulse Rate [ Chief Orthoptist ] Respiratory 22 17 Rate Blood Pressure 135/73 145/106 O2 Sat by Pulse 97 97 Oximetry Medical Decision Making - Medical Decision Making EKG is interpreted by myself. EKG shows atrial fibrillation at a rate of 40 bpm QRS is 150 QT intervals 549 QTC is 479. Patient's EKG does show multiple PVCs as well Was pt. sent in by a medical professional or institution (, PA, [employer], urgent care, hospital, or group home...) When possible be specific @ -No Did you speak to anyone other than the patient for history (EMS, parent, family, police, friend...)? What history was obtained from this source @ -No Did you review nursing and triage notes (agree or disagree)? Why? @ -I reviewed and agree with nursing and triage notes Were old charts reviewed (outside hosp., previous admission, EMS record, old EKG, old radiological studies, urgent care reports/EKG's, group home records)? Report findings @ -I reviewed prior charts and prior lab work Differential Diagnosis (chest pain, altered mental status, abdominal pain women, abdominal pain men, vaginal bleeding, weakness, fever, dyspnea, syncope, headache, dizziness, GI bleed, back pain, seizure, CVA, palpatations, mental health, musculoskeletal)? @ -Differential Chest Pain: Stable Angina, Unstable Angina, STEMI, NSTEMI Aortic Dissection, Pneumothorax, Musculoskeletal, Esophageal Spasm GERD, Cholecystitis, Pancreatitis, Zoster, this is not meant to be an all-inclusive list. Differential Dyspnea: Coronary syndrome, arrhythmia, tamponade, asthma, COPD, pulmonary embolism, pneumonia, pneumothorax, pulmonary effusion, anaphylaxis, diabetic ketoacidosis, flailed chest, pulmonary contusion, diaphragmatic rupture, anemia, neuro muscular, this is not meant to be an all-inclusive list. EKG interpreted by me (3pts min.). @ -As above X-rays interpreted by me (1pt min.). @ -X-ray showed no acute abnormality CT interpreted by me (1pt min.). @ -None done U/S interpreted by me (1pt. min.). @ -None done What testing was considered but not performed or refused? (CT, X-rays, U/S, labs)? Why? @ -None What meds were considered but not given or refused? Why? @ -None Did you discuss the management of the patient with other professionals (professionals i.e. , PA, [employer], lab, RT, psych nurse, social work administrator, washer and crusher tender, teacher, combat information center officer, case resource manager)? Give summary @ -I spoke with sound physician's he agreed to admit the patient admitted the patient wrote admitting orders Was smoking cessation discussed for >3mins.? @ -No Was critical care preformed (if so, how long)? @ -No Were there social determinants of health that impacted care today? How? (Homelessness, low income, unemployed, alcoholism, drug addiction, transportation, low edu. Level, literacy, decrease access to med. care, fci, rehab)? @ -No Was there de-escalation of care discussed even if they declined (Discuss DNR or withdrawal of care, Hospice)? DNR status @ -No What co-morbidities impacted this encounter? (DM, HTN, Smoking, COPD, CAD, Cancer, CVA, ARF, Chemo, Hep., AIDS, mental health diagnosis, sleep apnea, morbid obesity)? @ -None Was patient admitted / discharged? Hospital course, mention meds given and route, prescriptions, significant lab abnormalities, going to OR and other pertinent info. @ -Patient was placed on a monitor and had pacer pads placed in case he needed assistance. Patient remained stable throughout his ED course. Lab work was do ne chest x-ray was done always within normal range except for the bradycardia I spoke with sound physician's he agreed to admit the patient admitted the patient I consult cardiology Undiagnosed new problem with uncertain prognosis? @ -No Drug Therapy requiring intensive monitoring for toxicity (Heparin, Nitro, Insulin, Cardizem)? @ -No Were any procedures done? @ -No Diagnosis/symptom? @ -Bradycardia Acute, or Chronic, or Acute on Chronic? @ -Acute Uncomplicated (without systemic symptoms) or Complicated (systemic symptoms)? @ -Complicated Side effects of treatment? @ -No Exacerbation, Progression, or Severe Exacerbation? @ -No Poses a threat to life or bodily function? How? (Chest pain, [place], VA, pneumonia, PE, COPD, DKA, ARF, appy, cholecystitis, CVA, Diverticulitis, Homicidal, Suicidal, threat to staff... and all critical care pts) @ -Yes this can lead to poor perfusion and end organ dysfunction Diagnosis/symptom? @ -Chest pain Acute, or Chronic, or Acute on Chronic? @ -Acute Uncomplicated (without systemic symptoms) or Complicated (systemic symptoms)? @ -Complicated Side effects of treatment? @ -none Exacerbation, Progression, or Severe Exacerbation] @ -no Poses a threat to life or bodily function? @ -no - Lab Data Result diagrams: 01/29/23 09:31 01/29/23 09:31 Lab Results 01/29/23 01/29/23 01/29/23 Range/Units 09:31 09:31 09:31 WBC 7.6 (3.8-10.6) k/uL RBC 4.80 (4.30-5.90) m/uL Hgb 12.7 L (13.0-17.5) gm/dL Hct 38.6 L (39.0-53.0) % MCV 80.5 (80.0-100.0) fL MCH 26.4 (25.0-35.0) pg MCHC 32.8 (31.0-37.0) g/dL RDW 15.1 (11.5-15.5) % Plt Count 205 (150-450) k/uL MPV 9.1 Neutrophils % 76 % Lymphocytes % 13 % Monocytes % 6 % Eosinophils % 3 % Basophils % 1 % Neutrophils # 5.8 (1.3-7.7) k/uL Lymphocytes # 1.0 (1.0-4.8) k/uL Monocytes # 0.5 (0-1.0) k/uL Eosinophils # 0.2 (0-0.7) k/uL Basophils # 0.0 (0-0.2) k/uL PT 21.2 H (9.0-12.0) sec INR 2.2 H (<1.2) APTT 29.6 (22.0-30.0) sec Sodium 132 L (137-145) mmol/L Potassium 4.7 (3.5-5.1) mmol/L Chloride 99 (98-107) mmol/L Carbon Dioxide 23 (22-30) mmol/L Anion Gap 10 mmol/L BUN 11 (9-20) mg/dL Creatinine 0.78 (0.66-1.25) mg/dL Est GFR (CKD-EPI)AfAm >90 (>60 ml/min/1.73 sqM) Est GFR (CKD-EPI)NonAf >90 (>60 ml/min/1.73 sqM) Glucose 111 H (74-99) mg/dL Plasma Lactic Acid Gordon (0.7-2.0) mmol/L Calcium 9.6 (8.4-10.2) mg/dL Magnesium 1.7 (1.6-2.3) mg/dL Total Bilirubin 2.4 H (0.2-1.3) mg/dL AST 28 (17-59) U/L ALT 24 (4-49) U/L Alkaline Phosphatase 68 (38-126) U/L Troponin I (0.000-0.034) ng/mL Total Protein 7.1 (6.3-8.2) g/dL Albumin 4.1 (3.5-5.0) g/dL 01/29/23 01/29/23 Range/Units 09:31 09:31 WBC (3.8-10.6) k/uL RBC (4.30-5.90) m/uL Hgb (13.0-17.5) gm/dL Hct (39.0-53.0) % MCV (80.0-100.0) fL MCH (25.0-35.0) pg MCHC (31.0-37.0) g/dL RDW (11.5-15.5) % Plt Count (150-450) k/uL MPV Neutrophils % % Lymphocytes % % Monocytes % % Eosinophils % % Basophils % % Neutrophils # (1.3-7.7) k/uL Lymphocytes # (1.0-4.8) k/uL Monocytes # (0-1.0) k/uL Eosinophils # (0-0.7) k/uL Basophils # (0-0.2) k/uL PT (9.0-12.0) sec INR (<1.2) APTT (22.0-30.0) sec Sodium (137-145) mmol/L Potassium (3.5-5.1) mmol/L Chloride (98-107) mmol/L Carbon Dioxide (22-30) mmol/L Anion Gap mmol/L BUN (9-20) mg/dL Creatinine (0.66-1.25) mg/dL Est GFR (CKD-EPI)AfAm (>60 ml/min/1.73 sqM) Est GFR (CKD-EPI)NonAf (>60 ml/min/1.73 sqM) Glucose (74-99) mg/dL Plasma Lactic Acid Gordon 1.2 (0.7-2.0) mmol/L Calcium (8.4-10.2) mg/dL Magnesium (1.6-2.3) mg/dL Total Bilirubin (0.2-1.3) mg/dL AST (17-59) U/L ALT (4-49) U/L Alkaline Phosphatase (38-126) U/L Troponin I <0.012 (0.000-0.034) ng/mL Total Protein (6.3-8.2) g/dL Albumin (3.5-5.0) g/dL Disposition Clinical Impression: Chest pain, Bradycardia Disposition: ADMITTED IP TO THIS [facility] Time of Disposition: 11:23
[2023-01-29 09:49] LABS: Basophils % (A) 1 %; Eosinophils # (A) 0.2 k/uL (0-0.7); Eosinophils % (A) 3 %; HCT 38.6 % (39.0-53.0); HGB 12.7 gm/dL (13.0-17.5); Lymphocytes % (A) 13 %; MCH 26.4 pg (25.0-35.0); MCHC 32.8 g/dL (31.0-37.0); MCV 80.5 fL (80.0-100.0); Mean Platelet Volume 9.1; Monocytes # (A) 0.5 k/uL (0-1.0); Monocytes % (A) 6 %; Neutrophils # (A) 5.8 k/uL (1.3-7.7); Neutrophils % (A) 76 %; Platelet Count 205 k/uL (150-450); RDW 15.1 % (11.5-15.5); WBC 7.6 k/uL (3.8-10.6)
--- NOTE | 2023-01-29 09:58 | XR ---
EXAMINATION TYPE: XR chest 2V DATE OF EXAM: 01/29/2023 COMPARISON: 11/13/2022 HISTORY: Shortness of breath TECHNIQUE: Frontal and lateral views of the chest are obtained. FINDINGS: Scattered senescent parenchymal changes noted. Hyperinflation compatible with COPD. No evidence for infiltrate. No evidence for atelectasis. Heart size is stable. Pulmonary venous congestion without overt failure. Mediastinal structures are stable and grossly unremarkable. No evidence for hilar prominence. Degenerative changes dorsal spine. IMPRESSION: 1. Pulmonary venous congestion without overt failure.
[2023-01-29 10:02] LABS: INR 2.2 (<1.2); Partial Thromboplastin Time 29.6 sec (22.0-30.0); Prothrombin Time 21.2 sec (9.0-12.0)
[2023-01-29 10:23] LABS: ALT 24 U/L (4-49); AST 28 U/L (17-59); African American GFR (CKD) >90 (>60 ml/min/1.73 sqM); Albumin 4.1 g/dL (3.5-5.0); Alkaline Phosphatase 68 U/L (38-126); Anion Gap 10 mmol/L; Blood Urea Nitrogen 11 mg/dL (9-20); Calcium 9.6 mg/dL (8.4-10.2); Carbon Dioxide 23 mmol/L (22-30); Chloride 99 mmol/L (98-107); Glucose 111 mg/dL (74-99); Magnesium 1.7 mg/dL (1.6-2.3); Non-African American GFR(CKD) >90 (>60 ml/min/1.73 sqM); Potassium 4.7 mmol/L (3.5-5.1); Sodium 132 mmol/L (137-145); Total Bilirubin 2.4 mg/dL (0.2-1.3); Total Protein 7.1 g/dL (6.3-8.2)
[2023-01-29] MEDS ORDERED: ASPIRIN 81 MG PO STA (11:23)
[2023-01-29] MEDS ORDERED: NITROGLYCERIN SL TABS 0.4 MG TAB SUBLINGUAL PRN (11:23)
--- NOTE | 2023-01-29 16:56 | P.HPIM ---
History of Present Illness H&P Date: 01/29/23 Chief Complaint: Weakness 63-year-old man with a medical history of paroxysmal atrial fibrillation, thoracic aortic aneurysm, mitral valve regurgitation status post mechanical mitral valve, hypertension, hyperlipidemia presented for evaluation of increasing weakness. Patient says that for the last 2 weeks he's been having increasing weakness and lethargy. Patient says that he noticed his heart rates have been low. Today he also had some chest pressure, which prompted his evaluation in the emergency room. Patient denies fevers, chills, nausea, vomiting, palpitations, syncopal, raising the, cough, dyspnea, abdominal pain, constipation, diarrhea, dysuria, dyschezia, numbness/weakness of extremities. In the emergency room, patient was afebrile, 114/60, heart rate 40, 99% on room air. CBC was markable for mild anemia to 12.7. Basic metabolic panel showed hyponatremia to 132. Liver function tests show mildly elevated bilirubin at 2.4. Troponin was less than 0.0129 trended less than 0.012 after 2 subsequent checks. Coags showed INR 2.2. EKG showed atrial fibrillation with slow ventricular response. Chest x-ray showed normal-sized heart, mildly increased pulmonary opacities bilaterally consistent with vascular congestion. This was discussed with emergency room provider and decision was made to admit the patient to hospital for further evaluation of chest pain and bradycardia. All Systems reviewed and pertinent positives and negatives noted in HPI, all other symptoms are negative Gen: in no apparent distress, resting comfortably in bed Eyes: PERRL, no scleral injection or icterus HENT: normocephalic, atraumatic, good hearing acuity, moist mucous membranes Neck: no tracheal deviation, full range of motion Resp: good air exchange, breathing comfortably with no accessory muscle use, no tactile fremitus CVS: good distal perfusion x 4, no pitting edema, irregular rhythm, slow rate, no murmurs, mechanical click consistent with mechanical valve GI: soft, NTTP, ND, no hepatosplenomegaly : no suprapubic tenderness, no CVAT, odell catheter not present MSK: no clubbing, no cyanosis, no noted contractures of extremities, psoriasis present on the elbows, digits, shins Skin: no noted rashes, petechiae; temperature of skin is appropriate Neuro: moving all extremities without signs of weakness, CN II-XII intact Psych: cooperative, euthymic mood, insight and judgment intact Labs and imaging as above Assessment/plan: Bradycardia Permanent atrial fibrillation with slow ventricular response Chest pressure Thoracic aortic aneurysm status post repair Mitral valve regurgitation status post mechanical valve Hypertension Hyperlipidemia Plan: Vital signs reviewed and noted in the HPI Lab work reviewed and noted in the HPI EKG and CXR are personally interpreted and noted in the HPI Case was discussed with the Emergency Room provider and decision was made to admit the patient for chest pressure, bradycardia Cardiology consult Hold home metoprolol Keep transthoracic pacing pads on Monitor on telemetry Aspirin 81 mg daily Continue Coumadin, pharmacy consult Patient is full code Past Medical History Past Medical History: Atrial Fibrillation, Coronary Artery Disease (CAD), Hypertension Additional Past Medical History / Comment(s): chronic lower back pain, History of Any Multi-Drug Resistant Organisms: None Reported Past Surgical History: Cardiac Valve Replacement, Coronary Bypass/CABG Additional Past Surgical History / Comment(s): right knee, jaw Past Psychological History: No Psychological Hx Reported Smoking Status: Former smoker Past Alcohol Use History: Daily Past Drug Use History: Marijuana Medications and Allergies Home Medications Medication Instructions Recorded Confirmed Type Aspirin [Children's Aspirin] 81 mg PO DAILY 11/11/22 01/29/23 History Metoprolol Tartrate [Lopressor] 75 mg PO DAILY 11/11/22 01/29/23 History Omeprazole 20 mg PO DAILY 11/11/22 01/29/23 History Warfarin [Coumadin] 7.5 mg PO MOWEFRSA 11/11/22 01/29/23 History Warfarin [Coumadin] 10 mg PO SUTUTH 11/11/22 01/29/23 History amLODIPine [Norvasc] 5 mg PO PC-SUPPER 11/11/22 01/29/23 History Albuterol Inhaler [Ventolin Hfa 2 puff INHALATION RT-Q6H PRN 01/29/23 01/29/23 History Inhaler] Rosuvastatin [Crestor] 10 mg PO PC-LUNCH 01/29/23 01/29/23 History Allergies Allergy/AdvReac Type Severity Reaction Status Date / Time acetaminophen Allergy Rash/Hives Verified 01/29/23 12:03 [From Darvocet-N 100] propoxyphene Allergy Rash/Hives Verified 01/29/23 12:03 [From Darvocet-N 100] amitriptyline [From Elavil] AdvReac NIGHTMARES Verified 01/29/23 12:03 hydralazine AdvReac MIGRAINES Verified 01/29/23 12:03 naproxen [From Naprosyn] AdvReac Nausea Verified 01/29/23 12:03 Physical Exam Osteopathic Statement: *. No significant issues noted on an osteopathic structural exam other than those noted in the History and Physical/Consult. Vitals: Vital Signs Temp Pulse Pulse Resp BP Pulse Ox 01/29/23 14:23 46 L 16 125/75 96 01/29/23 12:23 37 L 18 129/110 97 01/29/23 11:10 41 L 17 145/106 97 01/29/23 11:00 47 L 22 135/73 97 01/29/23 10:50 43 L 12 141/86 93 L 01/29/23 10:40 40 L 9 L 135/79 98 01/29/23 10:30 38 L 16 136/79 97 01/29/23 10:20 40 L 36 H 136/79 99 01/29/23 10:10 44 L 19 147/106 98 01/29/23 10:00 48 L 20 131/82 95 01/29/23 09:50 46 L 15 131/82 98 01/29/23 09:46 40 L 18 131/82 97 01/29/23 09:40 38 L 16 146/89 98 01/29/23 09:30 44 L 16 143/133 95 01/29/23 09:26 40 L 01/29/23 09:22 43 L 18 98 01/29/23 09:12 96.8 F L 40 L 18 114/60 99 01/29/23 09:10 36 L 16 114/60 97 01/29/23 09:07 42 L 17 96 Intake and Output 01/29/23 01/29/23 01/29/23 06:59 14:59 22:59 Other: Weight 80.286 kg Results CBC & Chem 7: 01/29/23 09:31 01/29/23 09:31 Labs: Abnormal Lab Results - Last 24 Hours (Table) 01/29/23 01/29/23 01/29/23 Range/Units 09:31 09:31 09:31 Hgb 12.7 L (13.0-17.5) gm/dL Hct 38.6 L (39.0-53.0) % PT 21.2 H (9.0-12.0) sec INR 2.2 H (<1.2) Sodium 132 L (137-145) mmol/L Glucose 111 H (74-99) mg/dL Total Bilirubin 2.4 H (0.2-1.3) mg/dL
[2023-01-29] MEDS ORDERED: WARFARIN 2.5 MG TAB PO ONE (18:00)
[2023-01-29] MEDS ORDERED: WARFARIN 10 MG TAB PO SCH (18:00)
[2023-01-29] MEDS: ALBUTEROL NEBULIZED 2.5 MG/3 ML INHALATION PRN (21:39)
[2023-01-30] MEDS: MELATONIN 5 MG TABLET PO SCH ×2 (00:41→19:19)
[2023-01-30 07:30] LABS: Basophils % (A) 1 %; Eosinophils # (A) 0.2 k/uL (0-0.7); Eosinophils % (A) 3 %; HCT 38.4 % (39.0-53.0); HGB 12.5 gm/dL (13.0-17.5); Lymphocytes # (A) 0.8 k/uL (1.0-4.8); Lymphocytes % (A) 12 %; MCH 26.9 pg (25.0-35.0); MCHC 32.6 g/dL (31.0-37.0); MCV 82.6 fL (80.0-100.0); Mean Platelet Volume 7.7; Monocytes # (A) 0.6 k/uL (0-1.0); Monocytes % (A) 8 %; Neutrophils # (A) 5.3 k/uL (1.3-7.7); Neutrophils % (A) 75 %; Platelet Count 192 k/uL (150-450); RBC 4.65 m/uL (4.30-5.90); RDW 15.5 % (11.5-15.5)
[2023-01-30 07:47] LABS: INR 2.3 (<1.2); Prothrombin Time 22.1 sec (9.0-12.0)
[2023-01-30 07:50] LABS: African American GFR (CKD) >90 (>60 ml/min/1.73 sqM); Anion Gap 8 mmol/L; Blood Urea Nitrogen 9 mg/dL (9-20); Calcium 9.2 mg/dL (8.4-10.2); Carbon Dioxide 27 mmol/L (22-30); Chloride 101 mmol/L (98-107); Glucose 113 mg/dL (74-99); Magnesium 1.7 mg/dL (1.6-2.3); Non-African American GFR(CKD) >90 (>60 ml/min/1.73 sqM); Potassium 4.6 mmol/L (3.5-5.1); Sodium 136 mmol/L (137-145)
[2023-01-30] MEDS: ALBUTEROL NEBULIZED 2.5 MG/3 ML INHALATION PRN ×3 (08:25→20:40)
[2023-01-30] MEDS: ASPIRIN 81 MG PO SCH (08:56)
[2023-01-30] MEDS: FUROSEMIDE 10 MG/ML 4 ML VIAL IV SCH ×2 (08:56→19:19)
[2023-01-30] MEDS ORDERED: ASPIRIN 325 MG TAB PO SCH (09:00)
--- NOTE | 2023-01-30 09:56 | P.CRDCN ---
History of Present Illness History of present illness: HISTORY OF PRESENT ILLNESS: This is a 63-year-old male with a past medical history significant for persistent atrial fibrillation, mild nonobjective CAD, hypertension, hyperlipidemia, On-X mechanical aortic valve replacement in September 2019 secondary to bicuspid aortic valve, ascending aortic aneurysm status post bessy-arch repair. Patient follows in the office with Dr. Venegsa. We have been asked to see the patient in consultation for bradycardia. Patient examined at the bedside. Patient states over the past week he has been feeling dizzy and "sluggish". He reports shortness of breath over the past couple days. He states he is waking up in the middle of the night with significant shortness of breath. He also reports having some chest tightness when he is feeling short of breath. * EKG reveals atrial fibrillation with slow ventricular rate * Chest xray pulmonary venous congestion without overt failure * Laboratory data: W BC 7.6. Hemoglobin 12.7. Platelet count 205. INR 2.2. Sodium 132. Potassium 4.7. BUN 11. Creatinine 0.78. Troponin negative 2 * Current home cardiac medications include amlodipine 5 mg with dinner, rosuvastatin 10 mg daily, metoprolol tartrate 75 mg daily, aspirin 81 mg daily, and warfarin 10 mg Saturday and 7.5 mg Saturday * Most recent echocardiogram obtained in October 2022 revealed ejection fraction 5055%, normally functioning aortic valve. * Cardiac catheterization history: 2019 at the [facility] revealing left main 20-30%, diagonal 120%, OM 20%, RCA 20% REVIEW OF SYSTEMS: At the time of my exam: CONSTITUTIONAL: Denies fever or chills. HEENT: Denies blurred vision, vision changes, or eye pain. Denies hemoptysis CARDIOVASCULAR: Denies chest pain. Denies orthopnea. Denies PND. Denies palpitations RESPIRATORY: Reports shortness of breath. GASTROINTESTINAL: Denies abdominal pain. Denies nausea or vomiting. HEMATOLOGIC: Denies bleeding disorders. GENITOURINARY: Denies any blood in urine. SKIN: Denies pruitis. Denies rash. PHYSICAL EXAM: VITAL SIGNS: Reviewed. GENERAL: Well-developed in no acute distress. HEENT: Head is normocephalic. Pupils are equal, round. Sclerae anicteric. Mucous membranes of the mouth are moist. Neck supple. No JVD or thyromegaly LUNGS: Respirations even and unlabored. Lungs diminished with expiratory wheezing and bilateral crackles HEART: Irregular rate and rhythm. S1 and S2 heard. ABDOMEN: Soft. Nondistended. Nontender. EXTREMITIES: Normal range of motion. No clubbing or cyanosis. Peripheral pulses intact. No lower extremity edema NEUROLOGIC: Awake and alert. Oriented x 3. ASSESSMENT: Acute heart failure with preserved ejection fraction (5055% in October), repeat echo pending Atrial fibrillation with slow ventricular rate Mild nonobstructive CAD, per cardiac catheterization 2019 [facility] History of bicuspid aortic valve, status post On-X mechanical aortic valve replacement in September 2019 at [facility] Ascending aortic aneurysm, status post bessy-arch repair Hypertension Hyperlipidemia PLAN: Obtain 2-D echo to assess cardiac structure and function and assess mechanical aortic valve. Begin IV Lasix 40 mg every 12 hours Daily weights, accurate I&O, and monitor kidney function Patient's dizziness may be secondary to bradycardia. Will hold beta irvin at this time and will likely resume at a lower dose. No indication for pacemaker implantation. Hold amlodipine at this time. Continue to monitor blood pressure. Check TSH Continue Coumadin. Monitor INR Further recommendations pending patient's course Nurse practitioner note has been reviewed by physician. Signing provider agrees with the documented findings, assessment, and plan of care. Past Medical History Past Medical History: Atrial Fibrillation, Coronary Artery Disease (CAD), Hypertension Additional Past Medical History / Comment(s): chronic lower back pain, History of Any Multi-Drug Resistant Organisms: None Reported Past Surgical History: Cardiac Valve Replacement, Coronary Bypass/CABG Additional Past Surgical History / Comment(s): right knee, jaw Past Psychological History: No Psychological Hx Reported Smoking Status: Former smoker Past Alcohol Use History: Daily Past Drug Use History: Marijuana - Past Family History Mother Family Medical History: No Reported History Father Additional Family Medical History / Comment(s): Passed when patient was a child possibly related to heart disease. Medications and Allergies Home Medications Medication Instructions Recorded Confirmed Type Aspirin [Children's Aspirin] 81 mg PO DAILY 11/11/22 01/29/23 History Metoprolol Tartrate [Lopressor] 75 mg PO DAILY 11/11/22 01/29/23 History Omeprazole 20 mg PO DAILY 11/11/22 01/29/23 History Warfarin [Coumadin] 7.5 mg PO MOWEFRSA 11/11/22 01/29/23 History Warfarin [Coumadin] 10 mg PO SUTUTH 11/11/22 01/29/23 History amLODIPine [Norvasc] 5 mg PO PC-SUPPER 11/11/22 01/29/23 History Albuterol Inhaler [Ventolin Hfa 2 puff INHALATION RT-Q6H PRN 01/29/23 01/29/23 History Inhaler] Rosuvastatin [Crestor] 10 mg PO PC-LUNCH 01/29/23 01/29/23 History Allergies Allergy/AdvReac Type Severity Reaction Status Date / Time acetaminophen Allergy Rash/Hives Verified 01/29/23 12:03 [From Darvocet-N 100] propoxyphene Allergy Rash/Hives Verified 01/29/23 12:03 [From Darvocet-N 100] amitriptyline [From Elavil] AdvReac NIGHTMARES Verified 01/29/23 12:03 hydralazine AdvReac MIGRAINES Verified 01/29/23 12:03 naproxen [From Naprosyn] AdvReac Nausea Verified 01/29/23 12:03 Physical Exam Vitals: Vital Signs Temp Pulse Pulse Resp BP Pulse Ox 01/29/23 14:23 46 L 16 125/75 96 01/29/23 12:23 37 L 18 129/110 97 01/29/23 11:10 41 L 17 145/106 97 01/29/23 11:00 47 L 22 135/73 97 01/29/23 10:50 43 L 12 141/86 93 L 01/29/23 10:40 40 L 9 L 135/79 98 01/29/23 10:30 38 L 16 136/79 97 01/29/23 10:20 40 L 36 H 136/79 99 01/29/23 10:10 44 L 19 147/106 98 01/29/23 10:00 48 L 20 131/82 95 01/29/23 09:50 46 L 15 131/82 98 01/29/23 09:46 40 L 18 131/82 97 01/29/23 09:40 38 L 16 146/89 98 01/29/23 09:30 44 L 16 143/133 95 01/29/23 09:26 40 L 01/29/23 09:22 43 L 18 98 01/29/23 09:12 96.8 F L 40 L 18 114/60 99 01/29/23 09:10 36 L 16 114/60 97 01/29/23 09:07 42 L 17 96 Intake and Output 01/28/23 01/29/23 01/29/23 22:59 06:59 14:59 Other: Weight 80.286 kg Results 01/30/23 07:12 01/30/23 07:12 Cardiac Enzymes 01/29/23 01/29/23 01/29/23 Range/Units 09:31 09:31 11:50 AST 28 (17-59) U/L Troponin I <0.012 <0.012 (0.000-0.034) ng/mL Coagulation 01/29/23 Range/Units 09:31 PT 21.2 H (9.0-12.0) sec APTT 29.6 (22.0-30.0) sec CBC 01/29/23 Range/Units 09:31 WBC 7.6 (3.8-10.6) k/uL RBC 4.80 (4.30-5.90) m/uL Hgb 12.7 L (13.0-17.5) gm/dL Hct 38.6 L (39.0-53.0) % Plt Count 205 (150-450) k/uL Comprehensive Metabolic Panel 01/29/23 Range/Units 09:31 Sodium 132 L (137-145) mmol/L Potassium 4.7 (3.5-5.1) mmol/L Chloride 99 (98-107) mmol/L Carbon Dioxide 23 (22-30) mmol/L BUN 11 (9-20) mg/dL Creatinine 0.78 (0.66-1.25) mg/dL Glucose 111 H (74-99) mg/dL Calcium 9.6 (8.4-10.2) mg/dL AST 28 (17-59) U/L ALT 24 (4-49) U/L Alkaline Phosphatase 68 (38-126) U/L Total Protein 7.1 (6.3-8.2) g/dL Albumin 4.1 (3.5-5.0) g/dL Current Medications Generic Name Dose Route Start Last Admin Trade Name Freq PRN Reason Stop Dose Admin Aspirin 325 mg 01/30/23 09:00 Aspirin 325 Mg Tab PO DAILY ROB Nitroglycerin 0.4 mg 01/29/23 11:23 Nitroglycerin Sl Tabs 0.4 Mg Tab SUBLINGUAL Q5M PRN Chest Pain Intake and Output 01/28/23 01/29/23 01/29/23 22:59 06:59 14:59 Other: Weight 80.286 kg Patient Weight 01/30/23 06:59 Weight 80.286 kg 01/29/23 09:31 01/29/23 09:31
[2023-01-30] MEDS: ATORVASTATIN 20 MG TAB PO SCH (11:33)
--- NOTE | 2023-01-30 11:54 | CA ---
Transthoracic Echo Report Name: Jaime Raza Age: 63 Gender: M : 1960 Exam Date: 01/30/2023 09:49 Exam Location: [facility] Ht (in): 73 Wt (lb): 177 Ordering Physician: Xiao Almonte Attending/Referring Phys: [id number], Suzy Meter Reader Inspector Ariel Moscoso Procedure CPT: Indications: lv function, hx of avr Cardiac Hx: Technical Quality: Fair Contrast 1: Lumason Total Dose (mL): 5 Contrast 2: Total Dose (mL): MEASUREMENTS (Male / Female) Normal Values 2D ECHO LV Diastolic Diameter PLAX 5.3 cm 4.2 - 5.9 / 3.9 - 5.3 cm LV Systolic Diameter PLAX 3.6 cm IVS Diastolic Thickness 1.3 cm 0.6 - 1.0 / 0.6 - 0.9 cm LVPW Diastolic Thickness 1.0 cm 0.6 - 1.0 / 0.6 - 0.9 cm LV Relative Wall Thickness 0.4 RV Internal Dim ED PLAX 3.3 cm LVOT Diameter 2.0 cm LV Diastolic Volume MOD 4C 91.6 cm??? LV Systolic Volume MOD 4C 49.8 cm??? LV Ejection Fraction MOD 4C 45.7 % LV Cardiac Index MOD 4C 1068.7 cm???/min???m??? LV Diastolic Length 4C 7.7 cm LV Systolic Length 4C 7.1 cm DOPPLER AV Peak Velocity 223.0 cm/s AV Peak Gradient 19.9 mmHg TR Peak Velocity 248.9 cm/s TR Peak Gradient 24.8 mmHg Right Ventricular Systolic Press 29.8 mmHg FINDINGS Left Ventricle LV diameter at upper limits of normal in size. Normal wall thickness. Left ventricular ejection fraction is estimated at _35-40 %. Right Ventricle Right Atrium Left Atrium Mitral Valve Aortic Valve Mechanical AV prosthesis. Peak AV gradient= 19.9 mmHg. Tricuspid Valve Pulmonic Valve Pulmonic valve not well visualized. Moderate PI. Pericardium Normal pericardium. Aorta CONCLUSIONS Moderate LV systolic dysfunction with an ejection fraction of 35-40% There is a mechanical aortic valve prosthesis that seems to be functioning normally Consider transesophageal echo for further evaluation of the prosthetic valve if clinically indicated Previewed by: Dr. Ebenezer Antonio MD (Electronically Signed) Final Date: 30 January 2023 11:53
[2023-01-30 11:58] LABS: NT-Pro-B-Type Natriuretic Pept 1840 pg/mL
[2023-01-30 13:51] LABS: Chol/HDL Ratio 2.59 Ratio; LDL Cholesterol,Calculated 46.4 mg/dL (0.0-131.0); VLDL Calculation 14.96 mg/dL (5.00-40.00)
--- NOTE | 2023-01-30 14:14 | P.PN ---
Subjective Progress Note Date: 01/30/23 No new complaints. Pt was seen by cardiology and started on lasix. Gen: awake, alert HEENT: normocephalic, atraumatic, good hearing acuity, moist mucous membranes Resp: good air exchange, breathing comfortably with no accessory muscle use CVS: good distal perfusion x 4, GI: soft, NTTP, ND : no SPT, no CVAT, odell catheter not present MSK: no pitting edema, no clubbing Neuro: non-focal, moving all extremities Psych: cooperative, euthymic mood Hospital Course: 63-year-old man with a medical history of paroxysmal atrial fibrillation, thoracic aortic aneurysm, mitral valve regurgitation status post mechanical mitral valve, hypertension, hyperlipidemia presented for evaluation of increasing weakness. In the emergency room, patient was afebrile, 114/60, heart rate 40, 99% on room air. CBC was markable for mild anemia to 12.7. Basic metabolic panel showed hyponatremia to 132. Liver function tests show mildly elevated bilirubin at 2.4. Troponin was less than 0.0129 trended less than 0.01 2 after 2 subsequent checks. Coags showed INR 2.2. EKG showed atrial fibrillation with slow ventricular response. Chest x-ray showed normal-sized heart, mildly increased pulmonary opacities bilaterally consistent with vascular congestion. This was discussed with emergency room provider and decision was made to admit the patient to hospital for further evaluation of chest pain and bradycardia. Assessment/plan: Bradycardia Permanent atrial fibrillation with slow ventricular response Chest pressure Thoracic aortic aneurysm status post repair Mitral valve regurgitation status post mechanical valve Hypertension Hyperlipidemia Plan: Cardiology consult note reviewed, started on lasix 40mg IV BID, echocardiogram ordered Hold home metoprolol Keep transthoracic pacing pads on Monitor on telemetry Aspirin 81 mg daily Continue Coumadin, pharmacy consult Patient is full code Objective - Vital Signs Vital signs: Vital Signs Temp 98.1 F 01/30/23 08:55 Pulse 60 01/30/23 11:35 Resp 17 01/30/23 11:35 BP 117/75 01/30/23 11:35 Pulse Ox 97 01/30/23 11:35 FiO2 Intake & Output 01/29/23 01/30/23 01/30/23 18:59 06:59 18:59 Intake Total 690 Balance 690 Weight 80.286 kg Intake: Oral 690 Other: Voiding Method Toilet Toilet Toilet # Voids 1 1 - Labs CBC & Chem 7: 01/30/23 07:12 01/30/23 07:12 Labs: Abnormal Lab Results - Last 24 Hours (Table) 01/30/23 01/30/23 01/30/23 Range/Units 07:12 07:12 07:12 Hgb 12.5 L (13.0-17.5) gm/dL Hct 38.4 L (39.0-53.0) % Lymphocytes # 0.8 L (1.0-4.8) k/uL PT 22.1 H (9.0-12.0) sec INR 2.3 H (<1.2) Sodium 136 L (137-145) mmol/L Glucose 113 H (74-99) mg/dL HDL Cholesterol 38.60 L (40.00-60.00) mg/dL
[2023-01-30] MEDS ORDERED: WARFARIN 7.5 MG TAB PO SCH (18:00)
[2023-01-30] MEDS ORDERED: WARFARIN 10 MG TAB PO ONE (18:00)
[2023-01-31 06:17] LABS: Glucose,Whole Blood 120 mg/dL (70-110)
[2023-01-31 08:10] LABS: INR 2.7 (<1.2)
[2023-01-31] MEDS: FUROSEMIDE 10 MG/ML 4 ML VIAL IV SCH ×2 (08:30→20:33)
[2023-01-31] MEDS: ASPIRIN 81 MG PO SCH (08:30)
[2023-01-31] MEDS: SPIRONOLACTONE 25 MG TAB PO SCH (08:30)
[2023-01-31] MEDS: HEPARIN SOD,PORK IN 0.45% NACL 25,000 UNIT in 0.45% NACL 1 250ML.BAG IV SCH (09:25)
[2023-01-31 10:38] LABS: Basophils # (A) 0.1 k/uL (0-0.2); Basophils % (A) 1 %; Eosinophils # (A) 0.2 k/uL (0-0.7); Eosinophils % (A) 2 %; HCT 45.5 % (39.0-53.0); HGB 14.8 gm/dL (13.0-17.5); Lymphocytes # (A) 1.1 k/uL (1.0-4.8); Lymphocytes % (A) 14 %; MCHC 32.5 g/dL (31.0-37.0); MCV 80.2 fL (80.0-100.0); Mean Platelet Volume 8.1; Monocytes # (A) 0.6 k/uL (0-1.0); Monocytes % (A) 8 %; Neutrophils # (A) 5.8 k/uL (1.3-7.7); Neutrophils % (A) 74 %; Platelet Count 283 k/uL (150-450); RBC 5.68 m/uL (4.30-5.90); RDW 15.6 % (11.5-15.5); WBC 7.8 k/uL (3.8-10.6)
[2023-01-31 11:01] LABS: INR 2.6 (<1.2); Partial Thromboplastin Time 31.6 sec (22.0-30.0); Prothrombin Time 25.8 sec (9.0-12.0)
[2023-01-31] MEDS: HYDROcodone/APAP 5-325MG 1 EACH TAB PO PRN ×3 (11:12→20:42)
[2023-01-31] MEDS: ATORVASTATIN 20 MG TAB PO SCH (11:12)
[2023-01-31] MEDS ORDERED: ALPRAZolam 0.25 MG TAB PO PRN (12:43)
[2023-01-31] MEDS ORDERED: NITROGLYCERIN SL TABS 0.4 MG TAB SUBLINGUAL PRN (12:43)
--- NOTE | 2023-01-31 12:49 | P.PN ---
Subjective HISTORY OF PRESENT ILLNESS: This is a 63-year-old male with a past medical history significant for persistent atrial fibrillation, mild nonobjective CAD, hypertension, hyperlipidemia, On-X mechanical aortic valve replacement in September 2019 secondary to bicuspid aortic valve, ascending aortic aneurysm status post bessy-arch re pair. Patient follows in the office with Dr. Venegas. We have been asked to see the patient in consultation for bradycardia. Patient examined at the bedside. Patient states over the past week he has been feeling dizzy and "sluggish". He reports shortness of breath over the past couple days. He states he is waking up in the middle of the night with significant shortness of breath. He also reports having some chest tightness when he is feeling short of breath. * EKG reveals atrial fibrillation with slow ventricular rate * Chest xray pulmonary venous congestion without overt failure * Laboratory data: W BC 7.6. Hemoglobin 12.7. Platelet count 205. INR 2.2. Sodium 132. Potassium 4.7. BUN 11. Creatinine 0.78. Troponin negative 2 * Current home cardiac medications include amlodipine 5 mg with dinner, rosuvastatin 10 mg daily, metoprolol tartrate 75 mg daily, aspirin 81 mg daily, and warfarin 10 mg Saturday and 7.5 mg Saturday * Most recent echocardiogram obtained in October 2022 revealed ejection fraction 5055%, normally functioning aortic valve. * Cardiac catheterization history: 2019 at the [facility] revealing left main 20-30%, diagonal 1 20%, OM 20%, RCA 20% 01/31/2023 Patient examined this morning at the bedside. Patient denies chest pain or pressure. He reports improvement in his shortness of breath. He remains on IV Lasix 40 mg every 12 hours. Echocardiogram completed revealing ejection fraction 35-40%, mechanical AV prosthesis with peak AV gradient of 19.9 mmHg, moderate PI. PHYSICAL EXAM: VITAL SIGNS: Reviewed. GENERAL: Well-developed in no acute distress. HEENT: Head is normocephalic. Pupils are equal, round. Sclerae anicteric. Mucous membranes of the mouth are moist. Neck supple. No JVD or thyromegaly LUNGS: Respirations even and unlabored. Lungs diminished bilaterally. HEART: Irregular rate and rhythm. S1 and S2 heard. ABDOMEN: Soft. Nondistended. Nontender. EXTREMITIES: Normal range of motion. No clubbing or cyanosis. Peripheral pulses intact. No lower extremity edema NEUROLOGIC: Awake and alert. Oriented x 3. ASSESSMENT: Acute heart failure with reduced EF, 35-40% New-onset cardiomyopathy, ischemic versus nonischemic Atrial fibrillation with slow ventricular rate Mild nonobstructive CAD, per cardiac catheterization 2019 [facility] History of bicuspid aortic valve, status post On-X mechanical aortic valve replacement in September 2019 at [facility] Ascending aortic aneurysm, status post bessy-arch repair Hypertension Hyperlipidemia PLAN: Continue IV Lasix 40 mg every 12 hours Daily weights, accurate I&O, and monitor kidney function Patient's dizziness may be secondary to bradycardia. Will hold beta irvin at this time and will likely resume at a lower dose. No indication for pacemaker implantation. And lisinopril and Aldactone Discontinue Coumadin. Begin IV heparin Patient will be scheduled for cardiac catheterization tomorrow with Dr. Venegas (pending INR level tomorrow morning). NPO at midnight Further recommendations pending patient's course Nurse practitioner note has been reviewed by physician. Signing provider agrees with the documented findings, assessment, and plan of care. Objective - Vital Signs Vital signs: Vital Signs Temp 98.3 F 01/31/23 08:20 Pulse 67 01/31/23 11:15 Resp 17 01/31/23 11:15 BP 143/81 01/31/23 11:15 Pulse Ox 98 01/31/23 11:15 FiO2 Intake & Output 01/30/23 01/31/23 01/31/23 18:59 06:59 18:59 Intake Total 1170 540 240 Balance 1170 540 240 Intake: Oral 1170 540 240 Other: Voiding Method Toilet Toilet Toilet # Voids 1 1 1 - Labs CBC & Chem 7: 01/31/23 09:55 01/30/23 07:12 Labs: Abnormal Lab Results - Last 24 Hours (Table) 01/30/23 01/31/23 01/31/23 Range/Units 07:12 06:15 06:48 RDW (11.5-15.5) % PT 26.0 H (9.0-12.0) sec INR 2.7 H (<1.2) APTT (22.0-30.0) sec POC Glucose (mg/dL) 120 H (70-110) mg/dL HDL Cholesterol 38.60 L (40.00-60.00) mg/dL 01/31/23 01/31/23 Range/Units 09:55 09:55 RDW 15.6 H (11.5-15.5) % PT 25.8 H (9.0-12.0) sec INR 2.6 H (<1.2) APTT 31.6 H (22.0-30.0) sec POC Glucose (mg/dL) (70-110) mg/dL HDL Cholesterol (40.00-60.00) mg/dL
--- NOTE | 2023-01-31 14:58 | P.PN ---
Subjective Progress Note Date: 01/31/23 No new complaints. Pt was seen by cardiology and started on lasix. Plan is for [facility] tomorrow given echo findings. Gen: awake, alert HEENT: normocephalic, atraumatic, good hearing acuity, moist mucous membranes Resp: good air exchange, breathing comfortably with no accessory muscle use CVS: good distal perfusion x 4, GI: soft, NTTP, ND : no SPT, no CVAT, odell catheter not present MSK: no pitting edema, no clubbing Neuro: non-focal, moving all extremities Psych: cooperative, euthymic mood Hospital Course: 63-year-old man with a medical history of paroxysmal atrial fibrillation, thoracic aortic aneurysm, mitral valve regurgitation status post mechanical mitral valve, hypertension, hyperlipidemia presented for evaluation of increasing weakness. In the emergency room, patient was afebrile, 114/60, heart rate 40, 99% on room air. CBC was markable for mild anemia to 12.7. Basic metabolic panel showed hyponatremia to 132. Liver function tests show mildly elevated bilirubin at 2.4. Troponin was less than 0.0129 trended less than 0.012 after 2 subsequent checks. Coags showed INR 2.2. EKG showed atrial fibrillation with slow ventricular response. Chest x-ray showed normal-sized heart, mildly increased pulmonary opacities bilaterally consistent with vascular congestion. This was discussed with emergency room provider and decision was made to admit the patient to hospital for further evaluation of chest pain and bradycardia. Assessment/plan: Bradycardia Permanent atrial fibrillation with slow ventricular response Acute Systolic Heart Failure, EF 35% Thoracic aortic aneurysm status post repair Mitral valve regurgitation status post mechanical valve Hypertension Hyperlipidemia Plan: Cardiology consult note reviewed, echo shows reduced EF, plans for [facility] tomorrow Hold home metoprolol Keep transthoracic pacing pads on Monitor on telemetry Aspirin 81 mg daily continue heparin gtt, monitor ptt for toxicity Patient is full code Objective - Vital Signs Vital signs: Vital Signs Temp 98.3 F 01/31/23 08:20 Pulse 67 01/31/23 11:15 Resp 17 01/31/23 11:15 BP 143/81 01/31/23 11:15 Pulse Ox 98 01/31/23 11:15 FiO2 Intake & Output 01/30/23 01/31/23 01/31/23 18:59 06:59 18:59 Intake Total 1170 540 240 Balance 1170 540 240 Intake: Oral 1170 540 240 Other: Voiding Method Toilet Toilet Toilet # Voids 1 1 1 - Labs CBC & Chem 7: 01/31/23 09:55 01/30/23 07:12 Labs: Abnormal Lab Results - Last 24 Hours (Table) 01/31/23 01/31/23 01/31/23 Range/Units 06:15 06:48 09:55 RDW 15.6 H (11.5-15.5) % PT 26.0 H (9.0-12.0) sec INR 2.7 H (<1.2) APTT (22.0-30.0) sec POC Glucose (mg/dL) 120 H (70-110) mg/dL 01/31/23 Range/Units 09:55 RDW (11.5-15.5) % PT 25.8 H (9.0-12.0) sec INR 2.6 H (<1.2) APTT 31.6 H (22.0-30.0) sec POC Glucose (mg/dL) (70-110) mg/dL
[2023-01-31] MEDS: HEPARIN SODIUM 1,000 UN/ML (10ML VL) IV PRN (16:51)
[2023-01-31] MEDS: MELATONIN 5 MG TABLET PO SCH (20:33)
[2023-01-31] MEDS ORDERED: SODIUM CHLORIDE 0.9% 1,000 ML in EMPTY BAG 1 BAG IV SCH (23:00)
[2023-01-31] MEDS: ALPRAZolam 0.5 MG TAB PO PRN (23:50)
[2023-02-01] MEDS ORDERED: ATORVASTATIN 80 MG TAB PO ONE (05:00)
[2023-02-01] MEDS ORDERED: ASPIRIN 325 MG TAB PO ONE (05:00)
[2023-02-01 05:09] LABS: Basophils # (A) 0.1 k/uL (0-0.2); Basophils % (A) 1 %; Eosinophils # (A) 0.3 k/uL (0-0.7); Eosinophils % (A) 5 %; HGB 13.3 gm/dL (13.0-17.5); Lymphocytes # (A) 1.4 k/uL (1.0-4.8); Lymphocytes % (A) 20 %; MCH 25.7 pg (25.0-35.0); MCHC 31.7 g/dL (31.0-37.0); Mean Platelet Volume 8.6; Monocytes # (A) 0.5 k/uL (0-1.0); Monocytes % (A) 8 %; Neutrophils # (A) 4.3 k/uL (1.3-7.7); Neutrophils % (A) 64 %; Platelet Count 233 k/uL (150-450); RBC 5.18 m/uL (4.30-5.90); RDW 15.6 % (11.5-15.5); WBC 6.7 k/uL (3.8-10.6)
[2023-02-01 05:16] LABS: African American GFR (CKD) >90 (>60 ml/min/1.73 sqM); Anion Gap 8 mmol/L; Blood Urea Nitrogen 12 mg/dL (9-20); Calcium 9.8 mg/dL (8.4-10.2); Carbon Dioxide 28 mmol/L (22-30); Chloride 97 mmol/L (98-107); Glucose 115 mg/dL (74-99); Magnesium 1.5 mg/dL (1.6-2.3); Non-African American GFR(CKD) >90 (>60 ml/min/1.73 sqM); Potassium 3.7 mmol/L (3.5-5.1); Sodium 133 mmol/L (137-145)
[2023-02-01 05:22] LABS: INR 2.3 (<1.2); Partial Thromboplastin Time 40.9 sec (22.0-30.0)
[2023-02-01] MEDS ORDERED: HEPARIN SODIUM,PORCINE (1 ML) 2,500 UNIT in SODIUM CHLORIDE 0.9% 250 ML IRRIGATION PRN (07:00)
[2023-02-01] MEDS ORDERED: HEPARIN SODIUM,PORCINE 10,000 UNIT in SODIUM CHLORIDE 0.9% 1,000 ML IRRIGATION PRN (07:00)
[2023-02-01] MEDS: ASPIRIN 81 MG PO SCH (08:12)
[2023-02-01] MEDS: HYDROcodone/APAP 5-325MG 1 EACH TAB PO PRN ×3 (08:20→20:13)
[2023-02-01] MEDS: MAGNESIUM SULFATE-D5W PMX 1 GM in DEXTROSE/WATER 1 100ML.BAG IVPB SCH ×4 (08:21→13:18)
[2023-02-01] MEDS: SPIRONOLACTONE 25 MG TAB PO SCH (08:21)
[2023-02-01] MEDS: FUROSEMIDE 10 MG/ML 4 ML VIAL IV SCH ×2 (08:21→20:13)
[2023-02-01] MEDS: ALBUTEROL NEBULIZED 2.5 MG/3 ML INHALATION PRN (08:26)
--- NOTE | 2023-02-01 11:36 | P.PN ---
Subjective Progress Note Date: 02/01/23 No new complaints. [facility] outpatient per cardiology, ongoing diuresis. Pts pain is welll controlled, dyspnea improved. Gen: awake, alert HEENT: normocephalic, atraumatic, good hearing acuity, moist mucous membranes Resp: good air exchange, breathing comfortably with no accessory muscle use CVS: good distal perfusion x 4, GI: soft, NTTP, ND : no SPT, no CVAT, odell catheter not present MSK: no pitting edema, no clubbing Neuro: non-focal, moving all extremities Psych: cooperative, euthymic mood Hospital Course: 63-year-old man with a medical history of paroxysmal atrial fibrillation, thoracic aortic aneurysm, mitral valve regurgitation status post mechanical mitral valve, hypertension, hyperlipidemia presented for evaluation of increasing weakness. In the emergency room, patient was afebrile, 114/60, heart rate 40, 99% on room air. CBC was markable for mild anemia to 12.7. Basic metabolic panel showed hyponatremia to 132. Liver function tests show mildly elevated bilirubin at 2.4. Troponin was less than 0.0129 trended less than 0.012 after 2 subsequent checks. Coags showed INR 2.2. EKG showed atrial fibrillation with slow ventricular response. Chest x-ray showed normal-sized h eart, mildly increased pulmonary opacities bilaterally consistent with vascular congestion. This was discussed with emergency room provider and decision was made to admit the patient to hospital for further evaluation of chest pain and bradycardia. Assessment/plan: Bradycardia Permanent atrial fibrillation with slow ventricular response Acute Systolic Heart Failure, EF 35% Thoracic aortic aneurysm status post repair Mitral valve regurgitation status post mechanical valve Hypertension Hyperlipidemia Plan: Discussed with cardiology, ongoing diuretics, outpatient [facility] Hold home metoprolol Keep transthoracic pacing pads on Monitor on telemetry Aspirin 81 mg daily Resume coumadin, wean off heparin gtt Patient is full code Objective - Vital Signs Vital signs: Vital Signs Temp 97.2 F L 02/01/23 11:29 Pulse 68 02/01/23 11:29 Resp 16 02/01/23 11:29 BP 112/72 02/01/23 11:29 Pulse Ox 94 L 02/01/23 11:29 FiO2 Intake & Output 01/31/23 02/01/23 02/01/23 18:59 06:59 18:59 Intake Total 995.773 153.147 Output Total 1650 900 Balance 995.773 -1496.853 -900 Weight 80.1 kg Intake: Intake, IV Titration 71.773 153.147 Amount Heparin Sod,Pork in 0.45% 71.773 153.147 NaCl 25,000 unit In 0.45 % NaCl 1 250ml.bag @ 12 UNITS/KG/HR 9.634 mls/hr IV .Q24H [facility] Rx#: [id number] Oral 924 Output: Urine 1650 900 Other: Voiding Method Toilet Toilet Toilet Urinal Urinal # Voids 1 1 - Labs CBC & Chem 7: 02/01/23 04:45 02/01/23 04:45 Labs: Abnormal Lab Results - Last 24 Hours (Table) 01/31/23 01/31/23 02/01/23 Range/Units 09:55 16:05 04:45 RDW (11.5-15.5) % PT 25.8 H (9.0-12.0) sec INR 2.6 H (<1.2) APTT 31.6 H 34.8 H (22.0-30.0) sec Sodium 133 L (137-145) mmol/L Chloride 97 L (98-107) mmol/L Glucose 115 H (74-99) mg/dL Magnesium 1.5 L (1.6-2.3) mg/dL 02/01/23 02/01/23 Range/Units 04:45 04:45 RDW 15.6 H (11.5-15.5) % PT 22.0 H (9.0-12.0) sec INR 2.3 H (<1.2) APTT 40.9 H (22.0-30.0) sec Sodium (137-145) mmol/L Chloride (98-107) mmol/L Glucose (74-99) mg/dL Magnesium (1.6-2.3) mg/dL
[2023-02-01 11:40] LABS: INR 1.9 (<1.2); Prothrombin Time 18.5 sec (9.0-12.0)
--- NOTE | 2023-02-01 12:03 | P.PN ---
Subjective HISTORY OF PRESENT ILLNESS: This is a 63-year-old male with a past medical history significant for persistent atrial fibrillation, mild nonobjective CAD, hypertension, hyperlipidemia, On-X mechanical aortic valve replacement in September 2019 secondary to bicuspid aortic valve, ascending aortic aneurysm status post bessy-arch re pair. Patient follows in the office with Dr. Venegas. We have been asked to see the patient in consultation for bradycardia. Patient examined at the bedside. Patient states over the past week he has been feeling dizzy and "sluggish". He reports shortness of breath over the past couple days. He states he is waking up in the middle of the night with significant shortness of breath. He also reports having some chest tightness when he is feeling short of breath. * EKG reveals atrial fibrillation with slow ventricular rate * Chest xray pulmonary venous congestion without overt failure * Laboratory data: W BC 7.6. Hemoglobin 12.7. Platelet count 205. INR 2.2. Sodium 132. Potassium 4.7. BUN 11. Creatinine 0.78. Troponin negative 2 * Current home cardiac medications include amlodipine 5 mg with dinner, rosuvastatin 10 mg daily, metoprolol tartrate 75 mg daily, aspirin 81 mg daily, and warfarin 10 mg Saturday and 7.5 mg Saturday * Most recent echocardiogram obtained in October 2022 revealed ejection fraction 5055%, normally functioning aortic valve. * Cardiac catheterization history: 2019 at the [facility] revealing left main 20-30%, diagonal 1 20%, OM 20%, RCA 20% 01/31/2023 Patient examined this morning at the bedside. Patient denies chest pain or pressure. He reports improvement in his shortness of breath. He remains on IV Lasix 40 mg every 12 hours. Echocardiogram completed revealing ejection fraction 35-40%, mechanical AV prosthesis with peak AV gradient of 19.9 mmHg, moderate PI. 02/01/2023 Patient examined this morning at the bedside. He denies chest pain or pressure. He reports mild SOB. Patient was scheduled for cardiac cath today. However, his INR is 2.3 this morning. Vital signs are stable. PHYSICAL EXAM: VITAL SIGNS: Reviewed. GENERAL: Well-developed in no acute distress. HEENT: Head is normocephalic. Pupils are equal, round. Sclerae anicteric. Mucous membranes of the mouth are moist. Neck supple. No JVD or thyromegaly LUNGS: Respirations even and unlabored. Lungs diminished bilaterally. HEART: Irregular rate and rhythm. S1 and S2 heard. ABDOMEN: Soft. Nondistended. Nontender. EXTREMITIES: Normal range of motion. No clubbing or cyanosis. Peripheral pulses intact. No lower extremity edema NEUROLOGIC: Awake and alert. Oriented x 3. ASSESSMENT: Acute heart failure with reduced EF, 35-40% New-onset cardiomyopathy, ischemic versus nonischemic Persistent atrial fibrillation with slow ventricular rate Mild nonobstructive CAD, per cardiac catheterization 2019 [facility] History of bicuspid aortic valve, status post On-X mechanical aortic valve replacement in September [facility], status post bessy-arch repair Hypertension Hyperlipidemia PLAN: Continue IV Lasix 40 mg every 12 hours Daily weights, accurate I&O, and monitor kidney function Patient's dizziness may be secondary to bradycardia. Will hold beta irvin at this time and will likely resume at a lower dose. No indication for pacemaker implantation. Cardiac cath canceled for today secondary to elevated INR. Patient will follow up outpatient with Dr. Venegas and this will be rescheduled to be performed as an outpatient procedure. We will resume Coumadin today. Monitor INR. Continue to bridge with IV hepa rin. Further recommendations pending patient's course Nurse practitioner note has been reviewed by physician. Signing provider agrees with the documented findings, assessment, and plan of care. Objective - Vital Signs Vital signs: Vital Signs Temp 97.2 F L 02/01/23 11:29 Pulse 68 02/01/23 11:29 Resp 16 02/01/23 11:29 BP 112/72 02/01/23 11:29 Pulse Ox 94 L 02/01/23 11:29 FiO2 Intake & Output 01/31/23 02/01/23 02/01/23 18:59 06:59 18:59 Intake Total 995.773 153.147 Output Total 1650 900 Balance 995.773 -1496.853 -900 Weight 80.1 kg Intake: Intake, IV Titration 71.773 153.147 Amount Heparin Sod,Pork in 0.45% 71.773 153.147 NaCl 25,000 unit In 0.45 % NaCl 1 250ml.bag @ 12 UNITS/KG/HR 9.634 mls/hr IV .Q24H [facility] Rx#: [id number] Oral 924 Output: Urine 1650 900 Other: Voiding Method Toilet Toilet Toilet Urinal Urinal # Voids 1 1 - Labs CBC & Chem 7: 02/01/23 04:45 02/01/23 04:45 Labs: Abnormal Lab Results - Last 24 Hours (Table) 01/31/23 02/01/23 02/01/23 Range/Units 16:05 04:45 04:45 RDW 15.6 H (11.5-15.5) % PT (9.0-12.0) sec INR (<1.2) APTT 34.8 H (22.0-30.0) sec Sodium 133 L (137-145) mmol/L Chloride 97 L (98-107) mmol/L Glucose 115 H (74-99) mg/dL Magnesium 1.5 L (1.6-2.3) mg/dL 02/01/23 02/01/23 02/01/23 Range/Units 04:45 11:17 11:17 RDW (11.5-15.5) % PT 22.0 H 18.5 H (9.0-12.0) sec INR 2.3 H 1.9 H (<1.2) APTT 40.9 H 47.8 H (22.0-30.0) sec Sodium (137-145) mmol/L Chloride (98-107) mmol/L Glucose (74-99) mg/dL Magnesium (1.6-2.3) mg/dL
[2023-02-01] MEDS: ATORVASTATIN 20 MG TAB PO SCH (13:19)
[2023-02-01] MEDS: HEPARIN SOD,PORK IN 0.45% NACL 25,000 UNIT in 0.45% NACL 1 250ML.BAG IV SCH ×2 (15:53→20:30)
[2023-02-01] MEDS: CALCIUM CARBONATE 500 MG CHEWABLE PO PRN ×2 (16:22→18:26)
[2023-02-01] MEDS: PANTOPRAZOLE 40 MG TABLET PO SCH (16:22)
[2023-02-01] MEDS ORDERED: WARFARIN 10 MG TAB PO ONE (18:00)
[2023-02-01] MEDS ORDERED: WARFARIN 2.5 MG TAB PO ONE (18:00)
[2023-02-01] MEDS: MELATONIN 5 MG TABLET PO SCH (20:13)
[2023-02-01] MEDS: ALPRAZolam 0.5 MG TAB PO PRN (23:21)
[2023-02-02] MEDS: PANTOPRAZOLE 40 MG TABLET PO SCH (05:15)
[2023-02-02] MEDS: HYDROcodone/APAP 5-325MG 1 EACH TAB PO PRN ×3 (05:17→20:26)
[2023-02-02] MEDS: FUROSEMIDE 10 MG/ML 4 ML VIAL IV SCH ×2 (08:53→20:26)
[2023-02-02] MEDS: SPIRONOLACTONE 25 MG TAB PO SCH (08:53)
[2023-02-02] MEDS: ASPIRIN 81 MG PO SCH (08:53)
[2023-02-02] MEDS: HEPARIN SODIUM 1,000 UN/ML (10ML VL) IV PRN (08:54)
[2023-02-02 09:48] LABS: INR 1.6 (<1.2); Prothrombin Time 16.1 sec (9.0-12.0)
--- NOTE | 2023-02-02 10:28 | P.PN ---
Subjective HISTORY OF PRESENT ILLNESS: This is a 63-year-old male with a past medical history significant for persistent atrial fibrillation, mild nonobjective CAD, hypertension, hyperlipidemia, On-X mechanical aortic valve replacement in September 2019 secondary to bicuspid aortic valve, ascending aortic aneurysm status post bessy-arch re pair. Patient follows in the office with Dr. Venegas. We have been asked to see the patient in consultation for bradycardia. Patient examined at the bedside. Patient states over the past week he has been feeling dizzy and "sluggish". He reports shortness of breath over the past couple days. He states he is waking up in the middle of the night with significant shortness of breath. He also reports having some chest tightness when he is feeling short of breath. * EKG reveals atrial fibrillation with slow ventricular rate * Chest xray pulmonary venous congestion without overt failure * Laboratory data: W BC 7.6. Hemoglobin 12.7. Platelet count 205. INR 2.2. Sodium 132. Potassium 4.7. BUN 11. Creatinine 0.78. Troponin negative 2 * Current home cardiac medications include amlodipine 5 mg with dinner, rosuvastatin 10 mg daily, metoprolol tartrate 75 mg daily, aspirin 81 mg daily, and warfarin 10 mg Saturday and 7.5 mg Saturday * Most recent echocardiogram obtained in October 2022 revealed ejection fraction 5055%, normally functioning aortic valve. * Cardiac catheterization history: 2019 at the [facility] revealing left main 20-30%, diagonal 1 20%, OM 20%, RCA 20% 01/31/2023 Patient examined this morning at the bedside. Patient denies chest pain or pressure. He reports improvement in his shortness of breath. He remains on IV Lasix 40 mg every 12 hours. Echocardiogram completed revealing ejection fraction 35-40%, mechanical AV prosthesis with peak AV gradient of 19.9 mmHg, moderate PI. 02/01/2023 Patient examined this morning at the bedside. He denies chest pain or pressure. He reports mild SOB. Patient was scheduled for cardiac cath today. However, his INR is 2.3 this morning. Vital signs are stable. 02/02/2023 Patient examined this morning at the bedside. Patient denies any chest pain or pressure. He reports improvement in his shortness of breath. He has no lower extremity edema. He remains on IV Lasix he milligrams every 12 hours. Patient's INR is 1.6. He remains on IV heparin. He is also receiving Coumadin. PHYSICAL EXAM: VITAL SIGNS: Reviewed. GENERAL: Well-developed in no acute distress. HEENT: Head is normocephalic. Pupils are equal, round. Sclerae anicteric. Mucous membranes of the mouth are moist. Neck supple. No JVD or thyromegaly LUNGS: Respirations even and unlabored. Lungs diminished bilaterally. HEART: Irregular rate and rhythm. S1 and S2 heard. ABDOMEN: Soft. Nondistended. Nontender. EXTREMITIES: Normal range of motion. No clubbing or cyanosis. Peripheral pulses intact. No lower extremity edema NEUROLOGIC: Awake and alert. Oriented x 3. ASSESSMENT: Acute heart failure with reduced EF, 35-40% New-onset cardiomyopathy, ischemic versus nonischemic Persistent atrial fibrillation with slow ventricular rate Mild nonobstructive CAD, per cardiac catheterization 2019 [facility] History of bicuspid aortic valve, status post On-X mechanical aortic valve replacement in September [facility], status post bessy-arch repair Hypertension Hyperlipidemia PLAN: Continue IV Lasix 40 mg every 12 hours. Likely transition to oral dosing tomorrow. Daily weights, accurate I&O, and monitoring kidney function Patient's dizziness may be secondary to bradycardia. Continue to hold at this time. Continue Coumadin. Continue to monitor INR. Continue to bridge with IV he braden. Discussed possibility of Lovenox at discharge to bridge until INR is therapeutic. Patient states he does not want to give himself injections and would rather stay hospitalized until his INR is therapeutic so he does not have to give himself injections. Plan is for patient to follow up post discharge with Dr. Venegas and will be scheduled for outpatient cardiac catheterization. Further recommendations pending patient's course Nurse practitioner note has been reviewed by physician. Signing provider agrees with the documented findings, assessment, and plan of care. Objective - Vital Signs Vital signs: Vital Signs Temp 98.0 F 02/02/23 08:38 Pulse 73 02/02/23 08:38 Resp 16 02/02/23 08:38 BP 118/73 02/02/23 08:38 Pulse Ox 98 02/02/23 08:38 FiO2 Intake & Output 10/06/23 10/07/23 10/07/23 18:59 06:59 18:59 Intake Total 465.08 644.698 Output Total 1300 1600 400 Balance -834.92 -1600 244.698 Weight 80.3 kg Intake: Intake, IV Titration 25.08 164.698 Amount Heparin Sod,Pork in 0.45% 25.08 164.698 NaCl 25,000 unit In 0.45 % NaCl 1 250ml.bag @ 12 UNITS/KG/HR 9.634 mls/hr IV .Q24H [facility] Rx#: [id number] Oral 440 480 Output: Urine 1300 1600 400 Other: Voiding Method Toilet Toilet Toilet Urinal Urinal Urinal # Voids 1 - Labs CBC & Chem 7: 02/01/23 04:45 02/01/23 04:45 Labs: Abnormal Lab Results - Last 24 Hours (Table) 02/01/23 02/01/23 02/02/23 Range/Units 11:17 11:17 07:42 PT 18.5 H (9.0-12.0) sec INR 1.9 H (<1.2) APTT 47.8 H 41.8 H (22.0-30.0) sec 02/02/23 Range/Units 07:42 PT 16.1 H (9.0-12.0) sec INR 1.6 H (<1.2) APTT (22.0-30.0) sec
--- NOTE | 2023-02-02 11:47 | P.PN ---
Subjective Progress Note Date: 02/02/23 No new complaints. Pt feels back to baseline. INR is subtherapeutic for mechanical valve - bridging now. Gen: awake, alert HEENT: normocephalic, atraumatic, good hearing acuity, moist mucous membranes Resp: good air exchange, breathing comfortably with no accessory muscle use CVS: good distal perfusion x 4, GI: soft, NTTP, ND : no SPT, no CVAT, odell catheter not present MSK: no pitting edema, no clubbing Neuro: non-focal, moving all extremities Psych: cooperative, euthymic mood Hospital Course: 63-year-old man with a medical history of paroxysmal atrial fibrillation, thoracic aortic aneurysm, mitral valve regurgitation status post mechanical mitral valve, hypertension, hyperlipidemia presented for evaluation of increasing weakness. In the emergency room, patient was afebrile, 114/60, heart rate 40, 99% on room air. CBC was markable for mild anemia to 12.7. Basic metabolic panel showed hyponatremia to 132. Liver function tests show mildly elevated bilirubin at 2.4. Troponin was less than 0.0129 trended less than 0.012 after 2 subsequent checks. Coags showed INR 2.2. EKG showed atrial fibrillation with slow ventricular response. Chest x-ray showed normal-sized heart, mildly increased pulmonary opacities bilaterally consistent with vascular congestion. This was discussed with emergency room provider and decision was made to admit the patient to hospital for further evaluation of chest pain and bradycardia. Assessment/plan: Bradycardia Permanent atrial fibrillation with slow ventricular response Acute Systolic Heart Failure, EF 35% Thoracic aortic aneurysm status post repair Mitral valve regurgitation status post mechanical valve Hypertension Hyperlipidemia Plan: Discussed with cardiology, ongoing diuretics, outpatient [facility] Hold home metoprolol, resume at lower dose at the recommendation of cardiology Keep transthoracic pacing pads on Monitor on telemetry Aspirin 81 mg daily Resume coumadin, wean off heparin gtt once therapeutic coumadin (target 2.5, t lizz 2.2) Patient is full code Objective - Vital Signs Vital signs: Vital Signs Temp 98.0 F 02/02/23 08:38 Pulse 73 02/02/23 08:38 Resp 16 02/02/23 08:38 BP 118/73 02/02/23 08:38 Pulse Ox 98 02/02/23 08:38 FiO2 Intake & Output 02/01/23 02/02/23 02/02/23 18:59 06:59 18:59 Intake Total 465.08 644.698 Output Total 1300 1600 400 Balance -834.92 -1600 244.698 Weight 80.3 kg Intake: Intake, IV Titration 25.08 164.698 Amount Heparin Sod,Pork in 0.45% 25.08 164.698 NaCl 25,000 unit In 0.45 % NaCl 1 250ml.bag @ 12 UNITS/KG/HR 9.634 mls/hr IV .Q24H [facility] Rx#: [id number] Oral 440 480 Output: Urine 1300 1600 400 Other: Voiding Method Toilet Toilet Toilet Urinal Urinal Urinal # Voids 1 - Labs CBC & Chem 7: 02/01/23 04:45 02/01/23 04:45 Labs: Abnormal Lab Results - Last 24 Hours (Table) 02/02/23 02/02/23 Range/Units 07:42 07:42 PT 16.1 H (9.0-12.0) sec INR 1.6 H (<1.2) APTT 41.8 H (22.0-30.0) sec
[2023-02-02] MEDS: ALBUTEROL NEBULIZED 2.5 MG/3 ML INHALATION PRN (11:55)
[2023-02-02] MEDS: ATORVASTATIN 20 MG TAB PO SCH (14:03)
[2023-02-02] MEDS: HEPARIN SOD,PORK IN 0.45% NACL 25,000 UNIT in 0.45% NACL 1 250ML.BAG IV SCH (14:03)
[2023-02-02] MEDS ORDERED: WARFARIN 7.5 MG TAB PO ONE (18:00)
[2023-02-02] MEDS: MELATONIN 5 MG TABLET PO SCH (20:27)
[2023-02-02] MEDS: ALPRAZolam 0.5 MG TAB PO PRN (22:53)
[2023-02-03] MEDS: PANTOPRAZOLE 40 MG TABLET PO SCH (06:27)
[2023-02-03] MEDS: HEPARIN SOD,PORK IN 0.45% NACL 25,000 UNIT in 0.45% NACL 1 250ML.BAG IV SCH ×2 (06:27→20:29)
[2023-02-03] MEDS: HYDROcodone/APAP 5-325MG 1 EACH TAB PO PRN ×3 (06:30→18:30)
[2023-02-03] MEDS: SPIRONOLACTONE 25 MG TAB PO SCH (08:13)
[2023-02-03] MEDS: FUROSEMIDE 10 MG/ML 4 ML VIAL IV SCH (08:13)
[2023-02-03] MEDS: ASPIRIN 81 MG PO SCH (08:13)
[2023-02-03 10:47] LABS: INR 1.5 (<1.2); Partial Thromboplastin Time 43.3 sec (22.0-30.0); Prothrombin Time 15.3 sec (9.0-12.0)
--- NOTE | 2023-02-03 11:23 | P.PN ---
Subjective Progress Note Date: 02/03/23 No new complaints. Pt feels back to baseline. INR is subtherapeutic for mechanical valve - bridging now. Gen: awake, alert HEENT: normocephalic, atraumatic, good hearing acuity, moist mucous membranes Resp: good air exchange, breathing comfortably with no accessory muscle use CVS: good distal perfusion x 4, GI: soft, NTTP, ND : no SPT, no CVAT, odell catheter not present MSK: no pitting edema, no clubbing Neuro: non-focal, moving all extremities Psych: cooperative, euthymic mood Hospital Course: 63-year-old man with a medical history of paroxysmal atrial fibrillation, thoracic aortic aneurysm, mitral valve regurgitation status post mechanical mitral valve, hypertension, hyperlipidemia presented for evaluation of increasing weakness. In the emergency room, patient was afebrile, 114/60, heart rate 40, 99% on room air. CBC was markable for mild anemia to 12.7. Basic metabolic panel showed hyponatremia to 132. Liver function tests show mildly elevated bilirubin at 2.4. Troponin was less than 0.0129 trended less than 0.012 after 2 subsequent checks. Coags showed INR 2.2. EKG showed atrial fibrillation with slow ventricular response. Chest x-ray showed normal-sized heart, mildly increased pulmonary opacities bilaterally consistent with vascular congestion. This was discussed with emergency room provider and decision was made to admit the patient to hospital for further evaluation of chest pain and bradycardia. Assessment/plan: Bradycardia Permanent atrial fibrillation with slow ventricular response Acute Systolic Heart Failure, EF 35% Thoracic aortic aneurysm status post repair Mitral valve regurgitation status post mechanical valve Hypertension Hyperlipidemia Plan: Discussed with cardiology, ongoing diuretics, outpatient [facility] Hold home metoprolol, resume at lower dose at the recommendation of cardiology Keep transthoracic pacing pads on Monitor on telemetry Aspirin 81 mg daily Resume coumadin, wean off heparin gtt once therapeutic coumadin (target 2.5, t lizz 1.5) Patient is full code Objective - Vital Signs Vital signs: Vital Signs Temp 97.8 F 02/03/23 11:16 Pulse 83 02/03/23 11:16 Resp 16 02/03/23 11:16 BP 112/69 02/03/23 11:16 Pulse Ox 92 L 02/03/23 11:16 FiO2 21 02/03/23 08:24 Intake & Output 02/02/23 02/03/23 02/03/23 18:59 06:59 18:59 Intake Total 968.341 250 308.897 Output Total 775 525 775 Balance 193.341 -275 -466.103 Weight 80.9 kg Intake: Intake, IV Titration 248.341 250 68.897 Amount Heparin Sod,Pork in 0.45% 248.341 250 68.897 NaCl 25,000 unit In 0.45 % NaCl 1 250ml.bag @ 12 UNITS/KG/HR 9.634 mls/hr IV .Q24H [facility] Rx#: [id number] Oral 720 240 Output: Urine 775 525 775 Other: Voiding Method Toilet Toilet Toilet Urinal Urinal Urinal - Labs CBC & Chem 7: 02/01/23 04:45 02/01/23 04:45 Labs: Abnormal Lab Results - Last 24 Hours (Table) 02/02/23 02/03/23 Range/Units 14:36 09:58 PT 15.3 H (9.0-12.0) sec INR 1.5 H (<1.2) APTT 52.0 H 43.3 H (22.0-30.0) sec
--- NOTE | 2023-02-03 12:01 | P.PN ---
Subjective HISTORY OF PRESENT ILLNESS: This is a 63-year-old male with a past medical history significant for persistent atrial fibrillation, mild nonobjective CAD, hypertension, hyperlipidemia, On-X mechanical aortic valve replacement in September 2019 secondary to bicuspid aortic valve, ascending aortic aneurysm status post bessy-arch re pair. Patient follows in the office with Dr. Venegas. We have been asked to see the patient in consultation for bradycardia. Patient examined at the bedside. Patient states over the past week he has been feeling dizzy and "sluggish". He reports shortness of breath over the past couple days. He states he is waking up in the middle of the night with significant shortness of breath. He also reports having some chest tightness when he is feeling short of breath. * EKG reveals atrial fibrillation with slow ventricular rate * Chest xray pulmonary venous congestion without overt failure * Laboratory data: W BC 7.6. Hemoglobin 12.7. Platelet count 205. INR 2.2. Sodium 132. Potassium 4.7. BUN 11. Creatinine 0.78. Troponin negative 2 * Current home cardiac medications include amlodipine 5 mg with dinner, rosuvastatin 10 mg daily, metoprolol tartrate 75 mg daily, aspirin 81 mg daily, and warfarin 10 mg Saturday and 7.5 mg Saturday * Most recent echocardiogram obtained in October 2022 revealed ejection fraction 5055%, normally functioning aortic valve. * Cardiac catheterization history: 2019 at the [facility] revealing left main 20-30%, diagonal 1 20%, OM 20%, RCA 20% 01/31/2023 Patient examined this morning at the bedside. Patient denies chest pain or pressure. He reports improvement in his shortness of breath. He remains on IV Lasix 40 mg every 12 hours. Echocardiogram completed revealing ejection fraction 35-40%, mechanical AV prosthesis with peak AV gradient of 19.9 mmHg, moderate PI. 02/01/2023 Patient examined this morning at the bedside. He denies chest pain or pressure. He reports mild SOB. Patient was scheduled for cardiac cath today. However, his INR is 2.3 this morning. Vital signs are stable. 02/02/2023 Patient examined this morning at the bedside. Patient denies any chest pain or pressure. He reports improvement in his shortness of breath. He has no lower extremity edema. He remains on IV Lasix he milligrams every 12 hours. Patient's INR is 1.6. He remains on IV heparin. He is also receiving Coumadin. 02/03/2023 Patient examined this morning at the bedside. Patient denies any chest pain or pressure. He denies any shortness of breath. He remains on IV Lasix. Vital signs are stable. Patient remains on Coumadin. He also is being bridged with IV heparin until INR is therapeutic. INR today 1.5. PHYSICAL EXAM: VITAL SIGNS: Reviewed. GENERAL: Well-developed in no acute distress. HEENT: Head is normocephalic. Pupils are equal, round. Sclerae anicteric. Mucous membranes of the mouth are moist. Neck supple. No JVD or thyromegaly LUNGS: Respirations even and unlabored. Lungs diminished bilaterally. HEART: Irregular rate and rhythm. S1 and S2 heard. ABDOMEN: Soft. Nondistended. Nontender. EXTREMITIES: Normal range of motion. No clubbing or cyanosis. Peripheral pulses intact. No lower extremity edema NEUROLOGIC: Awake and alert. Oriented x 3. ASSESSMENT: Acute heart failure with reduced EF, 35-40% New-onset cardiomyopathy, ischemic versus nonischemic Persistent atrial fibrillation with slow ventricular rate Mild nonobstructive CAD, per cardiac catheterization 2019 [facility] History of bicuspid aortic valve, status post On-X mechanical aortic valve replacement in September 2019 at [facility] Ascending aortic aneurysm, status post bessy-arch repair Hypertension Hyperlipidemia PLAN: Discontinue IV Lasix. Begin oral Lasix 40 mg daily Daily weights, accurate I&O, and monitoring kidney function Patient's dizziness upon admission may be secondary to bradycardia. Continue to hold irvin at this time. Continue Coumadin. Continue to monitor INR. Continue to bridge with IV heparin. Discussed possibility of Lovenox at discharge to bridge until INR is therapeutic. Patient states he does not want to give himself injections and would rather stay hospitalized until his INR is therapeutic so he does not have to give himself injections. Plan is for patient to follow up post discharge with Dr. Venegas and will be scheduled for outpatient cardiac catheterization. Further recommendations pending patient's course Nurse practitioner note has been reviewed by physician. Signing provider agrees with the documented findings, assessment, and plan of care. Objective - Vital Signs Vital signs: Vital Signs Temp 97.8 F 02/03/23 11:16 Pulse 83 02/03/23 11:16 Resp 16 02/03/23 11:16 BP 112/69 02/03/23 11:16 Pulse Ox 92 L 02/03/23 11:16 FiO2 21 02/03/23 08:24 Intake & Output 02/02/23 02/03/23 02/03/23 18:59 06:59 18:59 Intake Total 968.341 250 308.897 Output Total 775 525 775 Balance 193.341 -275 -466.103 Weight 80.9 kg Intake: Intake, IV Titration 248.341 250 68.897 Amount Heparin Sod,Pork in 0.45% 248.341 250 68.897 NaCl 25,000 unit In 0.45 % NaCl 1 250ml.bag @ 12 UNITS/KG/HR 9.634 mls/hr IV .Q24H [facility] Rx#: [id number] Oral 720 240 Output: Urine 775 525 775 Other: Voiding Method Toilet Toilet Toilet Urinal Urinal Urinal - Labs CBC & Chem 7: 02/01/23 04:45 02/01/23 04:45 Labs: Abnormal Lab Results - Last 24 Hours (Table) 02/02/23 02/03/23 Range/Units 14:36 09:58 PT 15.3 H (9.0-12.0) sec INR 1.5 H (<1.2) APTT 52.0 H 43.3 H (22.0-30.0) sec
[2023-02-03] MEDS: ATORVASTATIN 20 MG TAB PO SCH (13:38)
[2023-02-03] MEDS ORDERED: WARFARIN 7.5 MG TAB PO ONE (18:00)
[2023-02-03] MEDS: MELATONIN 5 MG TABLET PO SCH (22:40)
[2023-02-03] MEDS: ALPRAZolam 0.5 MG TAB PO PRN (22:40)
[2023-02-04] MEDS: PANTOPRAZOLE 40 MG TABLET PO SCH (06:41)
[2023-02-04] MEDS: HYDROcodone/APAP 5-325MG 1 EACH TAB PO PRN ×3 (08:05→20:00)
[2023-02-04] MEDS: FUROSEMIDE 40 MG TAB PO SCH (08:07)
[2023-02-04] MEDS: SPIRONOLACTONE 25 MG TAB PO SCH (08:07)
[2023-02-04] MEDS: ASPIRIN 81 MG PO SCH (08:07)
[2023-02-04] MEDS: ALBUTEROL NEBULIZED 2.5 MG/3 ML INHALATION PRN (08:20)
--- NOTE | 2023-02-04 11:29 | P.PN ---
Subjective Progress Note Date: 02/04/23 Hospital course: Patient is a very pleasant 63-year-old male with a past medical history of coronary artery disease status post CABG, chronic atrial fibrillation, thoracic aortic aneurysm, aortic valve regurgitation status post mechanical mitral valve replacement, hypertension, hyperlipidemia, and chronic lower back pain. He presented to the emergency department on 01/29/23 with a chief complaint of generalized weakness and lethargy beginning approximately 2 weeks ago and progressively worsening. He underwent full evaluation in the emergency department. Labs were completed and reviewed. Patient was found to have a subtherapeutic INR at 2.2 started on heparin infusion. CBC showing normocytic anemia with hemoglobin of 12.7. BMP revealing hyponatremia with sodium of 132 otherwise normal findings. Liver profile was unremarkable. Magnesium slightly low at 1.7. Troponin negative at less than 0.012. EKG was completed showing atrial fibrillation with slowed ventricular response of 40 bpm. Chest x-ray completed consistent with hyperinflation resulting from COPD and pulmonary venous congestion consistent with CHF exacerbation. Patient was admitted under our services for CHF exacerbation and subtherapeutic INR with consultation to cardiology. Troponins trended all negative at less than 0.0123 draws. ProBNP was 1840. Lipid profile normal findings with the exception of low HDL of 38.60. TSH also normal findings at 2.490. Echocardiogram completed showing EF of 35- 40% with mechanical aortic valve prosthesis reportedly functioning normally. Patient underwent IV diuresis and was placed on IV heparin infusion for bridging of Coumadin until a therapeutic INR can be obtained. Physical exam: Vital signs reviewed and stable. General: Nontoxic, no distress and appears stated age. Derm: Skin warm and dry, normal coloration for ethnicity. Head: Atraumatic, normocephalic and symmetric. Eyes: EOMs intact, no lid lag, and anicteric sclera Mouth: no lip lesions, mucus membranes moist Cardiovascular: Irregularly irregular, systolic murmur, positive posterior tibial pulses bilaterally, and cap refill < 2 seconds. Lungs: Respirations even, regular, and unlabored on room air. Lungs CTA bilaterally, no rhonchi, no rales, no wheezing, and no accessory muscle usage. Abdominal: soft, nontender to palpation, no guarding, no appreciable organomegaly Ext: ROM intact. No gross muscle atrophy, no edema, no contractures Neuro: Speech clear, face symmetrical and CN II-XII grossly intact with no noted focal neuro deficits Psych: Alert and oriented to person, place, time, and situation. Appropriate and pleasant affect. Assessment and Plan of Care: Chronic atrial fibrillation with a slowed ventricular response Symptomatic bradycardia Acute on chronic systolic heart failure with EF of 35-40% Subtherapeutic INR with mechanical heart valve History of CAD status post CABG Thoracic aortic aneurysm Hypertension Hyperlipidemia -Discussed with cardiology, clearing patient from cardiac perspective for discharge. -[facility] and unable to get Lovenox for bridging until therapeutic INR is obtained, INR currently remains subtherapeutic at 2.0. Patient to remain on heparin infusion until a therapeutic level can be obtained and then will plan for discharge home. -Continue telemetry monitoring. -We will discontinue heparin infusion once therapeutic INR is obtained (2.5-3.5) -Patient remains in atrial fibrillation, however bradycardia/slowed ventricular rate has resolved and ventricular rate has been controlled/stable in the 60s- 70's over the past 24 hours. -Patient to continue with current cardiac medication regimen with aspirin 81 mg daily, atorvastatin 20 mg daily, Lasix 40 mg daily, lisinopril 2.5 mg daily, Aldactone 25 mg daily and Coumadin pharmacy to dose until therapeutic INR is obtained. 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 This document was prepared using [employer] dictation software. Please allow for errors in industrial conveyor belt repairer, while rare they do occur. Elio Lucio NP rendered care for this patient independently, reviewed the findings and plan as documented in the note above. I did not physically speak with or examine the patient on this date. Objective - Vital Signs Vital signs: Vital Signs Temp 97.9 F 02/04/23 08:00 Pulse 66 02/04/23 08:00 Resp 16 02/04/23 08:00 BP 159/97 02/04/23 08:00 Pulse Ox 99 02/04/23 08:00 FiO2 21 02/03/23 08:24 Intake & Output 02/03/23 02/04/23 02/04/23 18:59 06:59 18:59 Intake Total 5167.045 1745.451 Output Total 775 Balance 202.767 6345.451 Weight 81.1 kg Intake: Intake, IV Titration 68.897 160.451 Amount Heparin Sod,Pork in 0.45% 68.897 160.451 NaCl 25,000 unit In 0.45 % NaCl 1 250ml.bag @ 12 UNITS/KG/HR 9.634 mls/hr IV .Q24H [facility] Rx#: [id number] Oral 1200 1182 Output: Urine 775 Other: Voiding Method Toilet Toilet Urinal Urinal # Bowel Movements 1 - Labs CBC & Chem 7: 02/05/23 10:52 02/05/23 10:52 Labs: Abnormal Lab Results - Last 24 Hours (Table) 02/03/23 02/03/23 Range/Units 09:58 17:38 PT 15.3 H (9.0-12.0) sec INR 1.5 H (<1.2) APTT 43.3 H 52.0 H (22.0-30.0) sec
[2023-02-04] MEDS: HEPARIN SOD,PORK IN 0.45% NACL 25,000 UNIT in 0.45% NACL 1 250ML.BAG IV SCH (11:54)
[2023-02-04 12:59] LABS: African American GFR (CKD) >90 (>60 ml/min/1.73 sqM); Anion Gap 13 mmol/L; Blood Urea Nitrogen 15 mg/dL (9-20); Calcium 10.5 mg/dL (8.4-10.2); Carbon Dioxide 27 mmol/L (22-30); Chloride 92 mmol/L (98-107); Glucose 107 mg/dL (74-99); Non-African American GFR(CKD) 90 (>60 ml/min/1.73 sqM); Sodium 132 mmol/L (137-145)
[2023-02-04 13:14] LABS: Prothrombin Time 20.1 sec (9.0-12.0)
[2023-02-04] MEDS: ATORVASTATIN 20 MG TAB PO SCH (13:16)
--- NOTE | 2023-02-04 15:04 | P.PN ---
Subjective Progress Note Date: 02/04/23 HISTORY OF PRESENT ILLNESS: This is a 63-year-old male with a past medical history significant for pers istent atrial fibrillation, mild nonobjective CAD, hypertension, hyperlipidemia, On-X mechanical aortic valve replacement in September 2019 secondary to bicuspid aortic valve, ascending aortic aneurysm status post bessy-arch repair. Patient follows in the office with Dr. Venegas. We have been asked to see the patient in consultation for bradycardia. Patient examined at the bedside. Patient states over the past week he has been feeling dizzy and "sluggish". He reports shortness of breath over the past couple days. He states he is waking up in the middle of the night with significant shortness of breath. He also reports having some chest tightness when he is feeling short of breath. * EKG reveals atrial fibrillation with slow ventricular rate * Chest xray pulmonary venous congestion without overt failure * Laboratory data: W BC 7.6. Hemoglobin 12.7. Platelet count 205. INR 2.2. Sodium 132. Potassium 4.7. BUN 11. Creatinine 0.78. Troponin negative 2 * Current home cardiac medications include amlodipine 5 mg with dinner, rosuvastatin 10 mg daily, metoprolol tartrate 75 mg daily, aspirin 81 mg daily, and warfarin 10 mg Saturday and 7.5 mg Saturday * Most recent echocardiogram obtained in October 2022 revealed ejection fraction 5055%, normally functioning aortic valve. * Cardiac catheterization history: 2020 at the [facility] revealing left main 20-30%, diagonal 1 20%, OM 20%, RCA 20% 01/31/2023 Patient examined this morning at the bedside. Patient denies chest pain or pressure. He reports improvement in his shortness of breath. He remains on IV Lasix 40 mg every 12 hours. Echocardiogram completed revealing ejection fraction 35-40%, mechanical AV prosthesis with peak AV gradient of 19.9 mmHg, moderate PI. 02/01/2023 Patient examined this morning at the bedside. He denies chest pain or pressure. He reports mild SOB. Patient was scheduled for cardiac cath today. However, his INR is 2.3 this morning. Vital signs are stable. 02/02/2023 Patient examined this morning at the bedside. Patient denies any chest pain or pressure. He reports improvement in his shortness of breath. He has no lower extremity edema. He remains on IV Lasix he milligrams every 12 hours. Patient's INR is 1.6. He remains on IV heparin. He is also receiving Coumadin. 02/03/2023 Patient examined this morning at the bedside. Patient denies any chest pain or pressure. He denies any shortness of breath. He remains on IV Lasix. Vital signs are stable. Patient remains on Coumadin. He also is being bridged with IV heparin until INR is therapeutic. INR today 1.5. 02/04 Patient states that when he got up to the bathroom he did feel a little bit dizzy and he is also having some of the same sensation when he is sitting in bed. personnel monitor is atrial fibrillation, heart rate in the 60s to 80s, blood pressure 117/60. INR is 2.0 and appears that he is only waiting to be therapeutic on his INR. He has done Lovenox in the past. PHYSICAL EXAM: VITAL SIGNS: Reviewed. GENERAL: Well-developed in no acute distress. HEENT: Head is normocephalic. Pupils are equal, round. Sclerae anicteric. Mucous membranes of the mouth are moist. Neck supple. No JVD or thyromegaly LUNGS: Respirations even and unlabored. Lungs diminished bilaterally. HEART: Irregular rate and rhythm. S1 and S2 heard. ABDOMEN: Soft. Nondistended. Nontender. EXTREMITIES: Normal range of motion. No clubbing or cyanosis. Peripheral pulses intact. No lower extremity edema NEUROLOGIC: Awake and alert. Oriented x 3. ASSESSMENT: Acute heart failure with reduced EF, 35-40% New-onset cardiomyopathy, ischemic versus nonischemic Persistent atrial fibrillation with slow ventricular rate Mild nonobstructive CAD, per cardiac catheterization 2019 [facility] History of bicuspid aortic valve, status post On-X [facility], status post bessy-arch repair Hypertension Hyperlipidemia PLAN: Continue oral Lasix 40 mg daily Daily weights, accurate I&O, and monitoring kidney function Patient's dizziness upon admission may be secondary to bradycardia. Continue to hold irvin at this time. Continue Coumadin. Continue to monitor INR. Continue to bridge with IV heparin. Discussed possibility of Lovenox at discharge to bridge until INR is therapeutic. Plan is for patient to follow up post discharge with Dr. Venegas and will be scheduled for outpatient cardiac catheterization. Further recommendations pending patient's course Nurse practitioner note has been reviewed by physician. Signing provider agrees with the documented findings, assessment, and plan of care. Objective - Vital Signs Vital signs: Vital Signs Temp 97.7 F 02/04/23 11:49 Pulse 68 02/04/23 11:49 Resp 16 02/04/23 11:49 BP 117/60 02/04/23 11:49 Pulse Ox 97 02/04/23 11:49 FiO2 21 02/03/23 08:24 Intake & Output 02/03/23 02/04/23 02/04/23 18:59 06:59 18:59 Intake Total 8272.263 1323.451 250 Output Total 775 Balance 783.302 2049.451 250 Weight 81.1 kg Intake: Intake, IV Titration 68.897 160.451 250 Amount Heparin Sod,Pork in 0.45% 68.897 160.451 250 NaCl 25,000 unit In 0.45 % NaCl 1 250ml.bag @ 12 UNITS/KG/HR 9.634 mls/hr IV .Q24H [facility] Rx#: [id number] Oral 1200 1182 Output: Urine 775 Other: Voiding Method Toilet Toilet Toilet Urinal Urinal Urinal # Bowel Movements 1 - Labs CBC & Chem 7: 02/01/23 04:45 02/04/23 11:49 Labs: Abnormal Lab Results - Last 24 Hours (Table) 02/03/23 Range/Units 17:38 APTT 52.0 H (22.0-30.0) sec
[2023-02-04] MEDS ORDERED: WARFARIN 3 MG TAB PO ONE (18:00)
[2023-02-04 18:44] LABS: African American GFR (CKD) 81 (>60 ml/min/1.73 sqM); Anion Gap 13 mmol/L; Blood Urea Nitrogen 20 mg/dL (9-20); Calcium 10.1 mg/dL (8.4-10.2); Carbon Dioxide 22 mmol/L (22-30); Chloride 96 mmol/L (98-107); Glucose 105 mg/dL (74-99); Magnesium 1.7 mg/dL (1.6-2.3); Non-African American GFR(CKD) 70 (>60 ml/min/1.73 sqM); Potassium 5.3 mmol/L (3.5-5.1); Sodium 131 mmol/L (137-145)
[2023-02-04] MEDS: MELATONIN 5 MG TABLET PO SCH (19:59)
[2023-02-04] MEDS: ALPRAZolam 0.5 MG TAB PO PRN (21:14)
[2023-02-05] MEDS: PANTOPRAZOLE 40 MG TABLET PO SCH (06:32)
[2023-02-05] MEDS: HYDROcodone/APAP 5-325MG 1 EACH TAB PO PRN ×2 (07:26→13:39)
[2023-02-05] MEDS: SPIRONOLACTONE 25 MG TAB PO SCH (08:03)
[2023-02-05] MEDS: FUROSEMIDE 40 MG TAB PO SCH (08:04)
[2023-02-05] MEDS: ASPIRIN 81 MG PO SCH (08:04)
[2023-02-05 08:27] VITALS: BMI 23.6
[2023-02-05 11:44] LABS: HCT 44.4 % (39.0-53.0); HGB 14.5 gm/dL (13.0-17.5); MCH 26.3 pg (25.0-35.0); MCHC 32.7 g/dL (31.0-37.0); MCV 80.3 fL (80.0-100.0); Mean Platelet Volume 8.8; Platelet Count 294 k/uL (150-450); RBC 5.53 m/uL (4.30-5.90); RDW 15.2 % (11.5-15.5)
[2023-02-05 11:57] LABS: INR 2.6 (<1.2); Prothrombin Time 25.3 sec (9.0-12.0)
[2023-02-05 11:59] LABS: African American GFR (CKD) >90 (>60 ml/min/1.73 sqM); Anion Gap 13 mmol/L; Blood Urea Nitrogen 18 mg/dL (9-20); Calcium 10.5 mg/dL (8.4-10.2); Carbon Dioxide 26 mmol/L (22-30); Chloride 91 mmol/L (98-107); Glucose 100 mg/dL (74-99); Magnesium 1.8 mg/dL (1.6-2.3); Non-African American GFR(CKD) 86 (>60 ml/min/1.73 sqM); Potassium 5.3 mmol/L (3.5-5.1); Sodium 130 mmol/L (137-145)
[2023-02-05 12:15] VITALS: BP 139/84; PULSE 64; RESP 16; TEMP 98
[2023-02-05] MEDS: ATORVASTATIN 20 MG TAB PO SCH (13:39)
--- NOTE | 2023-02-05 14:50 | P.PN ---
Subjective Progress Note Date: 02/05/23 HISTORY OF PRESENT ILLNESS: This is a 63-year-old male with a past medical history significant for pers istent atrial fibrillation, mild nonobjective CAD, hypertension, hyperlipidemia, On-X mechanical aortic valve replacement in September 2019 secondary to bicuspid aortic valve, ascending aortic aneurysm status post bessy-arch repair. Patient follows in the office with Dr. Venegas. We have been asked to see the patient in consultation for bradycardia. Patient examined at the bedside. Patient states over the past week he has been feeling dizzy and "sluggish". He reports shortness of breath over the past couple days. He states he is waking up in the middle of the night with significant shortness of breath. He also reports having some chest tightness when he is feeling short of breath. * EKG reveals atrial fibrillation with slow ventricular rate * Chest xray pulmonary venous congestion without overt failure * Laboratory data: W BC 7.6. Hemoglobin 12.7. Platelet count 205. INR 2.2. Sodium 132. Potassium 4.7. BUN 11. Creatinine 0.78. Troponin negative 2 * Current home cardiac medications include amlodipine 5 mg with dinner, rosuvastatin 10 mg daily, metoprolol tartrate 75 mg daily, aspirin 81 mg daily, and warfarin 10 mg Saturday and 7.5 mg Saturday * Most recent echocardiogram obtained in October 2022 revealed ejection fraction 5055%, normally functioning aortic valve. * Cardiac catheterization history: 2020 at the [facility] revealing left main 20-30%, diagonal 1 20%, OM 20%, RCA 20% 01/31/2023 Patient examined this morning at the bedside. Patient denies chest pain or pressure. He reports improvement in his shortness of breath. He remains on IV Lasix 40 mg every 12 hours. Echocardiogram completed revealing ejection fraction 35-40%, mechanical AV prosthesis with peak AV gradient of 19.9 mmHg, moderate PI. 02/01/2023 Patient examined this morning at the bedside. He denies chest pain or pressure. He reports mild SOB. Patient was scheduled for cardiac cath today. However, his INR is 2.3 this morning. Vital signs are stable. 02/02/2023 Patient examined this morning at the bedside. Patient denies any chest pain or pressure. He reports improvement in his shortness of breath. He has no lower extremity edema. He remains on IV Lasix he milligrams every 12 hours. Patient's INR is 1.6. He remains on IV heparin. He is also receiving Coumadin. 02/03/2023 Patient examined this morning at the bedside. Patient denies any chest pain or pressure. He denies any shortness of breath. He remains on IV Lasix. Vital signs are stable. Patient remains on Coumadin. He also is being bridged with IV heparin until INR is therapeutic. INR today 1.5. 02/04 Patient states that when he got up to the bathroom he did feel a little bit dizzy and he is also having some of the same sensation when he is sitting in bed. hospital monitor is atrial fibrillation, heart rate in the 60s to 80s, blood pressure 117/60. INR is 2.0 and appears that he is only waiting to be therapeutic on his INR. He has done Lovenox in the past. 02/05 Patient states that he had a little bit of chest pressure about an hour ago which resolved on its own. INR today is at 2.6. Heart rate is running in the 60s to 70s, blood pressure 139/84, pulse ox 99% on room air. Sodium 130, potassium 5.3, creatinine 0.96. PHYSICAL EXAM: VITAL SIGNS: Reviewed. GENERAL: Well-developed in no acute distress. HEENT: Head is normocephalic. Pupils are equal, round. Sclerae anicteric. Mucous membranes of the mouth are moist. Neck supple. No JVD or thyromegaly LUNGS: Respirations even and unlabored. Lungs diminished bilaterally. HEART: Irregular rate and rhythm. S1 and S2 heard. ABDOMEN: Soft. Nondistended. Nontender. EXTREMITIES: Normal range of motion. No clubbing or cyanosis. Peripheral pulses intact. No lower extremity edema NEUROLOGIC: Awake and alert. Oriented x 3. ASSESSMENT: Acute heart failure with reduced EF, 35-40% New-onset cardiomyopathy, ischemic versus nonischemic Persistent atrial fibrillation with slow ventricular rate Mild nonobstructive CAD, per cardiac catheterization 2019 [facility] History of bicuspid aortic valve, status post On-X mechanical aortic valve [facility], status post bessy-arch repair Hypertension Hyperlipidemia PLAN: Continue oral Lasix 40 mg daily Daily weights, accurate I&O, and monitoring kidney function Patient's dizziness upon admission may be secondary to bradycardia. Continue to hold irvin at this time. Continue Coumadin. Plan is for patient to follow up post discharge with Dr. Venegas and will be scheduled for outpatient cardiac catheterization. Further recommendations pending patient's course Nurse practitioner note has been reviewed by physician. Signing provider agrees with the documented findings, assessment, and plan of care. Objective - Vital Signs Vital signs: Vital Signs Temp 97.9 F 02/05/23 08:00 Pulse 70 02/05/23 08:00 Resp 18 02/05/23 08:00 BP 145/72 02/05/23 08:00 Pulse Ox 97 02/05/23 08:00 FiO2 21 02/03/23 08:24 Intake & Output 02/04/23 02/05/23 02/05/23 18:59 06:59 18:59 Intake Total 997.257 240 Output Total 500 Balance 497.257 240 Weight 81.1 kg Intake: Intake, IV Titration 277.257 Amount Heparin Sod,Pork in 0.45% 277.257 NaCl 25,000 unit In 0.45 % NaCl 1 250ml.bag @ 12 UNITS/KG/HR 9.634 mls/hr IV .Q24H [facility] Rx#: [id number] Oral 720 240 Output: Urine 500 Other: Voiding Method Toilet Toilet Toilet Urinal Urinal Urinal # Voids 3 # Bowel Movements 0 - Labs CBC & Chem 7: 02/05/23 10:52 02/05/23 10:52 Labs: Abnormal Lab Results - Last 24 Hours (Table) 02/04/23 02/04/23 02/04/23 Range/Units 11:49 11:49 11:49 PT 20.1 H (9.0-12.0) sec INR 2.0 H (<1.2) APTT 53.9 H (22.0-30.0) sec Sodium 132 L (137-145) mmol/L Potassium (3.5-5.1) mmol/L Chloride 92 L (98-107) mmol/L Glucose 107 H (74-99) mg/dL Calcium 10.5 H (8.4-10.2) mg/dL 02/04/23 Range/Units 17:36 PT (9.0-12.0) sec INR (<1.2) APTT (22.0-30.0) sec Sodium 131 L (137-145) mmol/L Potassium 5.3 H (3.5-5.1) mmol/L Chloride 96 L (98-107) mmol/L Glucose 105 H (74-99) mg/dL Calcium (8.4-10.2) mg/dL
--- NOTE | 2023-02-05 14:53 | P.DS ---
Providers Date of admission: 01/29/23 11:24 Expected date of discharge: 02/05/23 Attending physician: Artem Norris MD Consults: 01/29/23 11:23 Consult Physician Urgent Consulting Provider: [facility] Reason/Comments: Bradycardia, chest pain Do you want consulting provider notified?: Yes Primary care physician: [facility] Course: Discharge Diagnosis: Chronic atrial fibrillation with a slowed ventricular response. Symptomatic bradycardia. Acute on chronic systolic heart failure with EF of 35-40%. Subtherapeutic INR with mechanical heart valve. History of CAD status post CABG Thoracic aortic aneurysm. Hypertension. Hyperlipidemia. Hyperkalemia, patient was started on spironolactone and lisinopril by cardiology during hospitalization. Potassium the last 2 days has been elevated at 5.3. We will discontinue lisinopril as diuretic will likely have more benefits for patient at this time. This was discussed with cardiology and they were in agreement. Patient also sent with a prescription to have repeat potassium levels drawn in 3 days to monitor for resolution of hyperkalemia. Hospital Course: Patient is a very pleasant 63-year-old male with a past medical history of coronary artery disease status post CABG, chronic atrial fibrillation, thoracic aortic aneurysm, aortic valve regurgitation status post mechanical mitral valve replacement, hypertension, hyperlipidemia, and chronic lower back pain. He presented to the emergency department on 01/29/23 with a chief complaint of generalized weakness and lethargy beginning approximately 2 weeks ago and progressively worsening. He underwent full evaluation in the emergency d epartment. Labs were completed and reviewed. Patient was found to have a subtherapeutic INR at 2.2 started on heparin infusion. CBC showing normocytic anemia with hemoglobin of 12.7. BMP revealing hyponatremia with sodium of 132 otherwise normal findings. Liver profile was unremarkable. Magnesium slightly low at 1.7. Troponin negative at less than 0.012. EKG was completed showing atrial fibrillation with slowed ventricular response of 40 bpm. Chest x-ray completed consistent with hyperinflation resulting from COPD and pulmonary venous congestion consistent with CHF exacerbation. Patient was admitted under our services for CHF exacerbation and subtherapeutic INR with consultation to cardiology. Troponins trended all negative at less than 0.0123 draws. ProBNP was 1840. Lipid profile normal findings with the exception of low HDL of 38.60. TSH also normal findings at 2.490. Echocardiogram completed showing EF of 35- 40% with mechanical aortic valve prosthesis reportedly functioning normally. Patient underwent IV diuresis and was placed on IV heparin infusion for bridging of Coumadin until a therapeutic INR can be obtained. INR therapeutic at 2.6. Patient is medically stable for discharge at this time and free from any complaints. Potassium has been slightly elevated over the past 2 days at 5.3 and patient was started on Aldactone and lisinopril by cardiology. Discussed with cardiology in p.m. lisinopril being discontinued at this time this patient will have more benefits from continuation of Aldactone. Patient being discharged home on Lasix 40 mg daily, Aldactone 25 mg daily, metoprolol 75 mg daily was discontinued per cardiology recommendation secondary to initial presentation of symptomatic bradycardia. Discussed plan of care with patient, patient to have repeat INR and BMP completed in 3 days with these results to be sent to PCP and laboratory manager for follow-up and management. Physical exam: Vital signs reviewed and stable. General: Nontoxic, no distress and appears stated age. Derm: Skin warm and dry, normal coloration for ethnicity. Head: Atraumatic, normocephalic and symmetric. Eyes: EOMs intact, no lid lag, and anicteric sclera Mouth: no lip lesions, mucus membranes moist Cardiovascular: Irregularly irregular, systolic murmur, positive posterior tibial pulses bilaterally, and cap refill < 2 seconds. Lungs: Respirations even, regular, and unlabored on room air. Lungs CTA bilaterally, no rhonchi, no rales, no wheezing, and no accessory muscle usage. Abdominal: soft, nontender to palpation, no guarding, no appreciable organomegaly Ext: ROM intact. No gross muscle atrophy, no edema, no contractures Neuro: Speech clear, face symmetrical and CN II-XII grossly intact with no noted focal neuro deficits Psych: Alert and oriented to person, place, time, and situation. Appropriate and pleasant affect. A total of 38 minutes of time were spent preparing this complex discharge summary. Pt was discharged on 02/05/23 at 2:47 PM. Patient was seen independently by Nurse Practitioner. This document was prepared using [employer] dictation software. Please allow for errors in whizzer hand while rare they do occur. Elio Lucio NP rendered care for this patient independently, reviewed the findings and plan as documented in the note above. I did not physically speak with or examine the patient on this date. Patient Condition at Discharge: Stable Plan - Discharge Summary Discharge Rx Participant: No New Discharge Prescriptions: New Furosemide [Lasix] 40 mg PO DAILY 30 Days #30 tab ALPRAZolam [Xanax] 0.5 mg PO Q6HR PRN #18 tab PRN Reason: Moderate Anxiety Spironolactone [Aldactone] 25 mg PO DAILY 30 Days #30 tab HYDROcodone/APAP 5-325MG [[place] 5-325] 1 each PO Q4HR PRN #18 tab PRN Reason: Pain Continue amLODIPine [Norvasc] 5 mg PO PC-SUPPER Rosuvastatin [Crestor] 10 mg PO PC-LUNCH Warfarin [Coumadin] 7.5 mg PO MOWEFRSA Warfarin [Coumadin] 10 mg PO SUTUTH Omeprazole 20 mg PO DAILY Aspirin [Children's Aspirin] 81 mg PO DAILY Albuterol Inhaler [Ventolin Hfa Inhaler] 2 puff INHALATION RT-Q6H PRN PRN Reason: Shortness Of Breath Or Wheezing Discontinued Metoprolol Tartrate [Lopressor] 75 mg PO DAILY Discharge Medication List Aspirin [Children's Aspirin] 81 mg PO DAILY 11/11/22 [History] Omeprazole 20 mg PO DAILY 11/11/22 [History] Warfarin [Coumadin] 7.5 mg PO MOWEFRSA 11/11/22 [History] Warfarin [Coumadin] 10 mg PO SUTUTH 11/11/22 [History] amLODIPine [Norvasc] 5 mg PO PC-SUPPER 11/11/22 [History] Albuterol Inhaler [Ventolin Hfa Inhaler] 2 puff INHALATION RT-Q6H PRN 01/29/23 [History] Rosuvastatin [Crestor] 10 mg PO PC-LUNCH 01/29/23 [History] ALPRAZolam [Xanax] 0.5 mg PO Q6HR PRN #18 tab 02/05/23 [Rx] Furosemide [Lasix] 40 mg PO DAILY 30 Days #30 tab 02/05/23 [Rx] HYDROcodone/APAP 5-325MG [[place] 5-325] 1 each PO Q4HR PRN #18 tab 02/05/23 [Rx] Spironolactone [Aldactone] 25 mg PO DAILY 30 Days #30 tab 02/05/23 [Rx] Follow up Appointment(s)/Referral(s): Ajith Venegas MD [Medical Doctor] - 02/13/23 9:00 am [facility] - 02/06/23 Ambulatory/Diagnostic Orders: Basic Metabolic Panel [LAB.AMB] Time Frame: 3 Days, Location: None Selected Prothrombin Time INR [LAB.AMB] Time Frame: 3 Days, Location: None Selected Patient Instructions/Handouts: Heart Failure (DC), Bradycardia (DC) Activity/Diet/Wound Care/Special Instructions: Activity: As tolerated. Take breaks as needed. Diet: Heart healthy and carb consistent diet. Avoid salts, or foods with hidden salts such as canned or boxed foods and frozen dinners. Extra salt makes your heart work harder and traps the fluid in your body for longer. Also as we discussed avoid green leafy vegetables as these contain high levels of vitamin K which lowers your INR. Special Instructions: Take all of your medications as directed and remember to keep all of your doctor's appointments and follow-up as needed. Thank you for allowing us to participate in your care, it was truly a pleasure having you for our patient!!! Discharge Disposition: HOME SELF-CARE
[2023-02-05] MEDS ORDERED: WARFARIN 10 MG TAB PO ONE (18:00)
== END 2023-02-05 16:00 | disposition home or self-care (01) | DRG 291 ==
LOC: EC 09:02 → 3SCARD 11:24
PROVIDERS: ADMIT Family Medicine; ATTEND Family Medicine
DX: I11.0 Hypertensive heart disease with heart failure (principal); I50.23 Acute on chronic systolic (congestive) heart failure; I48.21 Permanent atrial fibrillation; E87.1 Hypo-osmolality and hyponatremia; I49.3 Ventricular premature depolarization; D64.9 Anemia, unspecified; E87.5 Hyperkalemia; M54.50 Low back pain, unspecified; G89.29 Other chronic pain; I25.5 Ischemic cardiomyopathy; I34.0 Nonrheumatic mitral (valve) insufficiency; R79.1 Abnormal coagulation profile; Z79.01 Long term (current) use of anticoagulants; Z79.82 Long term (current) use of aspirin; Z79.899 Other long term (current) drug therapy; Z95.1 Presence of aortocoronary bypass graft; Z95.2 Presence of prosthetic heart valve; Z71.3 Dietary counseling and surveillance; Z28.311 Partially vaccinated for COVID-19; Z86.79 Personal history of other diseases of the circulatory system
CPT/HCPCS: 36415; 71046; 80048; 80053; 80061; 83605; 83735; 83880; 84443; 84484; 85025; 85027; 85610; 85730; 93005; 93308; 94640; 94760; 99285

== ENCOUNTER 2023-03-30 00:36 | Emergency (ER) | payer OTHER ==
[2023-03-30 00:47] VITALS: RESP 18; TEMP 97.5
[2023-03-30] MEDS ORDERED: DEXAMETHASONE SOD PHOSPHATE 10 MG/ML 1 ML VIAL IM STA (01:43)
[2023-03-30] MEDS ORDERED: MORPHINE SULFATE 4 MG/ML SYRINGE IM STA (01:43)
--- NOTE | 2023-03-30 01:47 | ED ---
General Adult HPI - General Chief complaint: Back Pain/Injury Stated complaint: Sciatic Nerve Pain, Chest Pain, AFib Time Seen by Provider: 03/30/23 00:52 Source: patient Mode of arrival: ambulatory Limitations: no limitations - History of Present Illness Initial comments: Dictation was produced using [employer] dictation software. please excuse any gr ammatical, word or spelling errors. Chief Complaint: 63-year-old male presents with acute on chronic back pain History of Present Illness: 63-year-old male presents emergency per with acute on chronic back pain. Patient has multiple, but is. Over the last 24 hours he had a significant flareup of his back pain states it comes from his lower back greatest on his left lower extremity posteriorly. Please of pins and needle sensation in his left foot. Denies any urinary or bowel symptoms. No saddle anesthesia. No fever constitutional symptoms. The ROS documented in this emergency department record has been reviewed and confirmed by me. Those systems with pertinent positive or negative responses have been documented in the HPI. All other systems are other negative and/or noncontributory. - Related Data Home Medications Medication Instructions Recorded Confirmed Aspirin [Children's Aspirin] 81 mg PO DAILY 11/11/22 03/27/23 Omeprazole 20 mg PO DAILY 11/11/22 03/27/23 Warfarin [Coumadin] 7.5 mg PO MOWEFR 11/11/22 03/27/23 Warfarin [Coumadin] 10 mg PO SUTUTHSA 11/11/22 03/27/23 amLODIPine [Norvasc] 5 mg PO BID 11/11/22 03/27/23 Albuterol Inhaler [Ventolin Hfa 2 puff INHALATION RT-Q6H PRN 01/29/23 03/27/23 Inhaler] Metoprolol Tartrate [Lopressor] 12.5 mg PO BID 03/27/23 03/27/23 Multivitamin [Multivitamins Adult 1 tab PO DAILY 03/27/23 03/27/23 Gummies] Previous Rx's Medication Instructions Recorded Furosemide [Lasix] 40 mg PO DAILY 30 Days #30 tab 02/05/23 Allergies Allergy/AdvReac Type Severity Reaction Status Date / Time acetaminophen Allergy Rash/Hives Verified 03/30/23 00:42 [From Darrdt-N 100] propoxyphene Allergy Rash/Hives Verified 03/30/23 00:42 [From Darvocet-N 100] amitriptyline [From Elavil] AdvReac NIGHTMARES Verified 03/30/23 00:42 hydralazine AdvReac MIGRAINES Verified 03/30/23 00:42 naproxen [From Naprosyn] AdvReac Nausea Verified 03/30/23 00:42 Review of Systems ROS Statement: Those systems with pertinent positive or pertinent negative responses have been documented in the HPI. ROS Other: All systems not noted in ROS Statement are negative. Past Medical History Past Medical History: Atrial Fibrillation, Coronary Artery Disease (CAD), Heart Failure, Hyperlipidemia, Hypertension, Skin Disorder Additional Past Medical History / Comment(s): chronic lower back pain w/ Lt. sciatica, TBI, hiatal hernia, cardiomyopathy, psoriasis, CHF - had a recent script for Jardiance and states, "I'm not taking it, I saw it on t.v, all the s taif effects." History of Any Multi-Drug Resistant Organisms: None Reported Past Surgical History: Cardiac Valve Replacement, Coronary Bypass/CABG Additional Past Surgical History / Comment(s): Rt. knee arthroscopy, jaw/facial reconstruction, aortic valve replacement w/ on-x mechanical valve & aortic root repair 2019 Past Anesthesia/Blood Transfusion Reactions: No Reported Reaction Past Psychological History: Anxiety, PTSD Smoking Status: Former smoker Past Alcohol Use History: None Reported Past Drug Use History: None Reported - Past Family History Mother Family Medical History: No Reported History Father Additional Family Medical History / Comment(s): Passed when patient was a child possibly related to heart disease. General Exam - General Exam Comments Initial Comments: PHYSICAL EXAM: General Impression: Alert and oriented x3, acute distress secondary to pain HEENT: Normocephalic atraumatic, extra-ocular movements intact, pupils equal and reactive to light bilaterally, mucous membranes moist. Cardiovascular: Heart regular rate and rhythm Chest: Able to complete full sentences, no retractions, no tachypnea Abdomen: abdomen soft, non-tender, non-distended, no organomegaly Musculoskeletal: Pulses present and equal in all extremities, no peripheral edema Motor: no focal deficits noted Neurological: CN II-XII grossly intact, no focal motor or sensory deficits noted Skin: Intact with no visualized rashes Psych: Normal affect and mood Limitations: no limitations Course Vital Signs 03/30/23 03/30/23 00:40 01:06 Temperature 97.5 F L Pulse Rate 80 78 Respiratory 18 18 Rate Blood Pressure 148/86 119/89 O2 Sat by Pulse 99 97 Oximetry Medical Decision Making - Medical Decision Making Was pt. sent in by a medical professional or institution (, [facility], [employer], urgent care, hospital, or senior living...) When possible be specific @ -No Did you speak to anyone other than the patient for history (EMS, parent, family, police, friend...)? What history was obtained from this source @ -No Did you review nursing and triage notes (agree or disagree)? Why? @ -I reviewed and agree with nursing and triage notes Were old charts reviewed (outside hosp., previous admission, EMS record, old EKG, old radiological studies, urgent care reports/EKG's, senior living records)? Report findings @ -No old charts were reviewed Differential Diagnosis (chest pain, altered mental status, abdominal pain women, abdominal pain men, vaginal bleeding, musculoskeletal, weakness, fever, dyspnea, syncope, headache, dizziness, GI bleed, back pain, seizure, CVA, palpatations, mental health)? @ -Differential Back Pain: Strain, zoster, cauda equina syndrome, epidural abscess, vertebral osteomyelitis, discitis, fracture, subluxation, disc herniation, DJD, spinal stenosis, dissection, AAA, pancreatitis, peptic ulcer disease, pyelonephritis, kidney stone, this is not meant to be an all-inclusive list. EKG interpreted by me (3pts min.). @ -None done X-rays interpreted by me (1pt min.). @ -None done CT interpreted by me (1pt min.). @ -None done U/S interpreted by me (1pt. min.). @ -None done What testing was considered but not performed or refused? (CT, X-rays, U/S, labs)? Why? @ -None What meds were considered but not given or refused? Why? @ -None Did you discuss the management of the patient with other professionals (professionals i.e. [facility], [employer], lab, RT, psych nurse, secondary social studies teacher, gasoline plant operator, teacher, hospital admissions officer, caser up)? Give summary @ -No Was smoking cessation discussed for >3mins.? @ -No Was critical care preformed (if so, how long)? @ -No Were there social determinants of health that impacted care today? How? (Homelessness, low income, unemployed, alcoholism, drug addiction, transportation, low edu. Level, literacy, decrease access to med. care, nursing home, rehab)? @ -No Was there de-escalation of care discussed even if they declined (Discuss DNR or withdrawal of care, Hospice)? DNR status @ -No What co-morbidities impacted this encounter? (DM, HTN, Smoking, COPD, CAD, Cancer, CVA, ARF, Chemo, Hep., AIDS, mental health diagnosis, sleep apnea, morbid obesity)? @ -None Was patient admitted / discharged? Hospital course, mention meds given and route, prescriptions, significant lab abnormalities, going to OR and other pertinent info. @ -63 Year-old no presents to emergency department with acute on chronic back pain. Vital signs are stable. Physical examination shows distressed male with back pain. Patient had no neurologic findings. He has no high-risk features. Patient given analgesics. Patient reevaluated after short ER observation with improvement of symptoms. Patient agreeable for discharge. Undiagnosed new problem with uncertain prognosis? @ -No Drug Therapy requiring intensive monitoring for toxicity (Heparin, Nitro, Insulin, Cardizem)? @ -No Were any procedures done? @ -No Diagnosis/symptom? Acute, or Chronic, or Acute on Chronic? Uncomplicated (without systemic symptoms) or Complicated (systemic symptoms)? @ -Acute On chronic sciatica Side effects of treatment? @ -No Exacerbation, Progression, or Severe Exacerbation? @ -No Poses a threat to life or bodily function? How? (Chest pain, [place], [place], pneumonia, PE, COPD, DKA, ARF, appy, cholecystitis, CVA, Diverticulitis, Homicidal, Suicidal, threat to staff... and all critical care pts) @ -yes Disposition Clinical Impression: Back pain Disposition: HOME SELF-CARE Condition: Good Instructions (If sedation given, give patient instructions): Acute Low Back Pain (ED) Is patient prescribed a controlled substance at d/c from ED?: No [facility]errals[facility] [Primary Care [facility]] - 1-2 days Time of Disposition: 04:04
[2023-03-30] MEDS ORDERED: traMADol 50 MG STARTER PACK 3 TAB BTL PO STA (04:19)
[2023-03-30 04:32] VITALS: BP 131/75; PULSE 72
== END 2023-03-30 04:20 | disposition home or self-care (01) ==
LOC: EC 00:36
DX: M54.50 Low back pain, unspecified (principal); E78.5 Hyperlipidemia, unspecified; I11.0 Hypertensive heart disease with heart failure; I25.10 Atherosclerotic heart disease of native coronary artery without angina pectoris; I50.9 Heart failure, unspecified; I25.2 Old myocardial infarction; I48.91 Unspecified atrial fibrillation; Z87.891 Personal history of nicotine dependence; Z79.82 Long term (current) use of aspirin; Z79.899 Other long term (current) drug therapy; Z86.59 Personal history of other mental and behavioral disorders; Z79.02 Long term (current) use of antithrombotics/antiplatelets; Z95.2 Presence of prosthetic heart valve; Z95.1 Presence of aortocoronary bypass graft; Z88.6 Allergy status to analgesic agent; Z88.8 Allergy status to other drugs, medicaments and biological substances
CPT/HCPCS: 99283; 96372 ×2; J2270; J1100

== ENCOUNTER 2023-04-16 06:32 | Day surgery (SDC) | payer OTHER ==
[2023-04-11 13:52] VITALS: BMI 22.6
[~2023-04-16 06:32] MED LIST: SODIUM CHLORIDE 0.9% 1,000 ML IV SCH
[2023-04-16 07:39] LABS: INR 3.5 (<1.2); Prothrombin Time 34.7 sec (10.0-12.5)
[2023-04-16 07:44] LABS: African American GFR (CKD) >90 (>60 ml/min/1.73 sqM); Anion Gap 9 mmol/L; Blood Urea Nitrogen 10 mg/dL (9-20); Calcium 9.7 mg/dL (8.4-10.2); Carbon Dioxide 27 mmol/L (22-30); Chloride 100 mmol/L (98-107); Glucose 103 mg/dL (74-99); Non-African American GFR(CKD) >90 (>60 ml/min/1.73 sqM); Potassium 3.9 mmol/L (3.5-5.1); Sodium 136 mmol/L (137-145)
[2023-04-16] MEDS ORDERED: BENZOCAINE SPRAY 1 CAN TOPICAL ONE ×3 (08:27→09:08)
[2023-04-16] MEDS ORDERED: LIDOCAINE 1% INJ 10MG/ML (20 ML MDV) ONE (08:34)
[2023-04-16] MEDS ORDERED: PROPOFOL 10 MG/ML 20 ML VIAL IV ONE (08:34)
[2023-04-16 08:45] VITALS: TEMP 99.2
[2023-04-16] MEDS ORDERED: LACTATED RINGERS 1,000 ML IV ONE (09:28)
--- NOTE | 2023-04-16 09:34 | P.TEE ---
Indications for Procedure(s): Persistent Afib Date of Procedure: 04/16/23 Description of Procedure(s): Procedure performed: 1. Transesophageal Echocardiogram. 2. Synchronized Cardioversion. Indications: Persistent atrial fibrillation Consent: I have discussed the risks, benefits and alternative therapies for the above-mentioned procedure. The patient has indicated understanding and acceptance of the risks of the procedure. Signed consent was obtained and was placed in the paper chart. Moderate conscious sedation: Moderate conscious sedation was administered by anesthesia, see separate report. Procedural Steps: Timeout was performed in usual fashion. Patient's heart rate, blood pressure, oxygen saturation and ECG were monitored. After achieving appropriate moderate conscious sedation, MARY JO probe was advanced without difficulty and without any immediate complications to the esophagus. MARY JO study was performed with color flow doppler, pulsed wave doppler and continuous wave d oppler. Agitated saline bubbles were injected to assess for any intra-atrial shunt. The probe was then removed. After making sure that there is no evidence of intracardiac thrombus, pacer pads were placed on patients chest and back. Synchronized cardioversion was perfromed using [150] J. [1] attempt. Sinus rhythm was confirmed with a 12 lead EKG. Patient tolerated the procedure well. Patient was transferred to the post procedure area in stable and satisfactory condition. Complications: none FINDINGS Left Atrium: Moderate left atrial dilatation. No thrombus Left Atrial Appendage: No evidence of thrombus or mass seen in ALLEGRA Inter atrial septum: Intact inter-atrial septum. No evidence of atrial septal defect or patent foramen ovale on color doppler. Left Ventricle: Normal global LV size and systolic function Right Atrium: Normal overall RV size Right Ventricle: Normal global RV size and systolic function Aortic Valve: On X mechanical aortic valve with no evidence of stenosis or regurgitation. Normal size aortic root. Mitral Valve: Struturally normal. Mild functional mitral regurgitation. Pulmonic Valve: Not well visualized. Tricuspid Valve: Structurally normal. [id number] TR Ascending aorta, Aortic root and Aortic arch: Normal size aortic root Descending aorta: Mild intimal thickening. No evidence of large atheroma or bulky calcification CONCLUSION: No evidence of thrombus in left atrium or left atrial appendage Normally functioning on X mechanical aortic valve Mild functional mitral regurgitation Moderate left atrial dilatation Successful cardioversion, 1 attempt 150 J Thank you for letting [facility] cardiology team to get involved in this patient's care. Please feel free to contact our office in case of any specific questions. Dr Ajith Venegas MD
[2023-04-16 10:24] VITALS: BP 135/86; PULSE 90; RESP 18
== END 2023-04-16 10:40 | disposition home or self-care (01) ==
LOC: OR 06:32
PROVIDERS: ATTEND Student in an Organized Health Care Education/Training Program
DX: I34.0 Nonrheumatic mitral (valve) insufficiency (principal); I48.11 Longstanding persistent atrial fibrillation; I25.10 Atherosclerotic heart disease of native coronary artery without angina pectoris; I42.9 Cardiomyopathy, unspecified; L40.9 Psoriasis, unspecified; E78.5 Hyperlipidemia, unspecified; I10 Essential (primary) hypertension; Z79.01 Long term (current) use of anticoagulants; Z79.899 Other long term (current) drug therapy; Z79.82 Long term (current) use of aspirin; Z95.2 Presence of prosthetic heart valve
CPT/HCPCS: 93312; 93320; 93325; 92960; 80048; 85610; 99152; J2001; J2704

== ENCOUNTER 2023-04-18 07:16 | Inpatient (IN) | payer OTHER, MEDICARE ==
--- NOTE | 2023-04-18 07:43 | ED ---
Chest Pain HPI - General Chief Complaint: Chest Pain Stated Complaint: Chest Pain Time Seen by Provider: 04/18/23 07:23 Source: EMS, RN notes reviewed, old records reviewed Mode of arrival: EMS Limitations: no limitations - History of Present Illness Initial Comments: This is a 63-year-old male to the emergency department today for multiple complaints, he presents for evaluation of chest pain back pain and may or may not have blood in the stool. Patient has had symptoms really started last night that has been getting worse throughout the night. Is without fever without travel history or sick contacts. MD Complaint: chest pain -: days(s) Onset: during rest, awoke with symptoms Pain Location: substernal Pain Radiation: back Severity scale (1-10): 4 Quality: aching Consistency: intermittent Improves With: nothing Worsens With: nothing Context: recent illness Other Symptoms: palpitations Treatments Prior to Arrival: none - Related Data Home Medications Medication Instructions Recorded Confirmed Aspirin [Children's Aspirin] 81 mg PO DAILY 11/11/22 04/18/23 Omeprazole 20 mg PO DAILY 11/11/22 04/18/23 Warfarin [Coumadin] 7.5 mg PO [id number]/11/22 04/18/23 Warfarin [Coumadin] 10 mg PO [id number]/11/22 04/18/23 amLODIPine [Norvasc] 5 mg PO BID 11/11/22 04/18/23 Albuterol Inhaler [Ventolin Hfa 2 puff INHALATION RT-Q6H PRN 01/29/23 04/18/23 Inhaler] Metoprolol Tartrate [Lopressor] 12.5 mg PO BID 03/27/23 04/18/23 Multivitamin [Multivitamins Adult 1 tab PO DAILY 03/27/23 04/18/23 Gummies] Previous Rx's Medication Instructions Recorded Furosemide [Lasix] 40 mg PO DAILY 30 Days #30 tab 02/05/23 HYDROcodone/APAP 10-325MG [[place] 1 each PO Q4HR PRN #18 tab 04/27/23 10-325] Allergies Allergy/AdvReac Type Severity Reaction Status Date / Time acetaminophen Allergy Rash/Hives Verified 04/25/23 14:37 [From Darvocet-N 100] propoxyphene Allergy Rash/Hives Verified 04/25/23 14:37 [From Darvocet-N 100] amitriptyline [From Elavil] AdvReac NIGHTMARES Verified 04/25/23 14:37 hydralazine AdvReac MIGRAINES Verified 04/25/23 14:37 naproxen [From Naprosyn] AdvReac Nausea Verified 04/25/23 14:37 Review of Systems ROS Statement: Those systems with pertinent positive or pertinent negative responses have been documented in the HPI. ROS Other: All systems not noted in ROS Statement are negative. EKG Findings - EKG Comments: EKG Findings:: EKG is sinus 84 PA 192 QRS 110 QTc 409 - EKG Results: EKG: interpreted by ERMD Past Medical History Past Medical History: Atrial Fibrillation, Coronary Artery Disease (CAD), Heart Failure, Hyperlipidemia, Hypertension, Skin Disorder Additional Past Medical History / Comment(s): chronic lower back pain w/ Lt. sciatica, TBI, hiatal hernia, cardiomyopathy, psoriasis, CHF - had a recent script for Jardiance and states, "I'm not taking it, I saw it on t.v, all the side effects." History of Any Multi-Drug Resistant Organisms: None Reported Past Surgical History: Cardiac Valve Replacement, Coronary Bypass/CABG Additional Past Surgical History / Comment(s): Rt. knee arthroscopy, jaw/facial reconstruction, aortic valve replacement w/ on-x mechanical valve & aortic root repair 2020 Past Anesthesia/Blood Transfusion Reactions: No Reported Reaction Past Psychological History: Anxiety, PTSD Smoking Status: Former smoker Past Alcohol Use History: None Reported Past Drug Use History: None Reported - Past Family History Mother Family Medical History: No Reported History Father Additional Family Medical History / Comment(s): Passed when patient was a child possibly related to heart disease. General Exam Limitations: no limitations General appearance: alert, in no apparent distress, anxious Head exam: Present: atraumatic, normocephalic, normal inspection Eye exam: Present: normal appearance, PERRL, EOMI. Absent: scleral icterus, conjunctival injection, periorbital swelling ENT exam: Present: normal exam, mucous membranes moist Neck exam: Present: normal inspection. Absent: tenderness, meningismus, lymphadenopathy Respiratory exam: Present: normal lung sounds bilaterally. Absent: respiratory distress, wheezes, rales, rhonchi, stridor Cardiovascular Exam: Present: regular rate, normal rhythm, normal heart sounds. Absent: systolic murmur, diastolic murmur, rubs, gallop, clicks GI/Abdominal exam: Present: soft, normal bowel sounds. Absent: distended, tenderness, guarding, rebound, rigid Extremities exam: Present: normal inspection, full ROM, normal capillary refill. Absent: tenderness, pedal edema, joint swelling, calf tenderness Back exam: Present: normal inspection Neurological exam: Present: alert, oriented X3, CN II-XII intact Psychiatric exam: Present: normal affect, normal mood Skin exam: Present: warm, dry, intact, normal color. Absent: rash Course Vital Signs 04/18/23 04/18/23 04/18/23 07:24 09:04 10:01 Temperature 98.7 F Pulse Rate 92 93 84 Respiratory 18 18 18 Rate Blood Pressure 139/91 141/89 134/88 O2 Sat by Pulse 99 99 98 Oximetry 04/18/23 04/18/23 04/18/23 11:40 13:19 16:04 Temperature 97.7 F Pulse Rate 92 99 88 Respiratory 18 18 18 Rate Blood Pressure 126/83 150/92 140/82 O2 Sat by Pulse 98 98 97 Oximetry - Reevaluation(s) Reevaluation #1: 04/18/23 07:55 Medical records reviewed Reevaluation #2: 04/18/23 12:23 His pain is difficult to control here in the ER, patient is given second dosing of pain medication Reevaluation #3: 04/18/23 12:23 Patient family informed results and questions answered Reevaluation #4: 04/18/23 07:55 Was pt. sent in by a medical professional or institution (, PA, PURCHASING ASSISTANT, urgent care, hospital, or group home...) When possible be specific @ -no Did you speak to anyone other than the patient for history (EMS, parent, family, police, friend...)? What history was obtained from this source @ -no Did you review nursing and triage notes (agree or disagree)? Why? @ -agree Are old charts reviewed (outside hosp., previous admission, EMS record, old EKG, old radiological studies, urgent care reports/EKG's, group home records)? Report findings @ -yes Differential Diagnosis (chest pain, altered mental status, abdominal pain women, abdominal pain men, vaginal bleeding, weakness, fever, dyspnea, syncope, headache, dizziness, GI bleed, back pain, seizure, CVA, palpatations, mental health, musculoskeletal)? @ -prior EKG interpreted by me (3pts min.). @ -yes X-rays interpreted by me (1pt min.). @ -yes CT interpreted by me (1pt min.). @ -Yes Positive significant for cancer metastatic disease U/S interpreted by me (1pt. min.). @ -no What testing was considered but not performed or refused? (CT, X-rays, U/S, labs)? Why? @ -none What meds were considered but not given or refused? Why? @ -none Did you discuss the management of the patient with other professionals (professionals i.e. , PA, PURCHASING ASSISTANT, lab, RT, psych nurse, social services director, licensed dispensing optician, teacher, cash management officer, medical case manager)? Give summary @ -no Was smoking cessation discussed for >3mins.? @ -no Was critical care preformed (if so, how long)? @ -no Were there social determinants of health that impacted care today? How? (Homelessness, low income, unemployed, alcoholism, drug addiction, transportation, low edu. Level, literacy, decrease access to med. care, nursing home, rehab)? @ -none Was there de-escalation of care discussed even if they declined (Discuss DNR or withdrawal of care, Hospice)? DNR status @ -no What co-morbidities impacted this encounter? (DM, HTN, Smoking, COPD, CAD, Cancer, CVA, ARF, Chemo, Hep., AIDS, mental health diagnosis, sleep apnea, morbid obesity)? @ -none Was patient admitted / discharged? Hospital course, mention meds given and route, prescriptions, significant lab abnormalities, going to OR and other pertinent info. @ - 63 male to the ER for evaluation abdominal pain back pain debility. Patient's been doing with increasing back pain with history of lumbar spine disease although was found today with some abdominal pain as well. Patient doesn't has an extensive abdominal cancer with metastasis into the long, multiple lymph nodes and patient does have a right inguinal lymph node on exam. Patient will be made for oncology Admitted Undiagnosed new problem with uncertain prognosis? @ -no Drug Therapy requiring intensive monitoring for toxicity (Heparin, Nitro, Insulin, Cardizem)? @ -no Were any procedures done? @ -no Diagnosis/symptom? @ -New Diagnosis metastatic cancer with cancer pain Acute, or Chronic, or Acute on Chronic? @ -Acute Uncomplicated (without systemic symptoms) or Complicated (systemic symptoms)? @ -Complicated Side effects of treatment? @ -no Exacerbation, Progression, or Severe Exacerbation? @ -exacerbation Poses a threat to life or bodily function? How? (Chest pain, [place], [place], pneumonia, PE, COPD, DKA, ARF, appy, cholecystitis, CVA, Diverticulitis, Homicidal, Suic idal, threat to staff... and all critical care pts) @ -yes significant metastasis from cancer Reevaluation #5: Differential Chest Pain: Stable Angina, Unstable Angina, STEMI, NSTEMI Aortic Dissection, Pneumothorax, Musculoskeletal, Esophageal Spasm GERD, Cholecystitis, Pancreatitis, Zoster, this is not meant to be an all-inclusive list. - Consultations Consultation #1: Spoke with sound physicians will see the patient and admit this patient Chest Pain MDM - MDM 63 male to the ER for evaluation abdominal pain back pain debility. Patient's been doing with increasing back pain with history of lumbar spine disease although was found today with some abdominal pain as well. Patient doesn't has an extensive abdominal cancer with metastasis into the long, multiple lymph nodes and patient does have a right inguinal lymph node on exam. Patient will be made for oncology Disposition Clinical Impression: Nausea and vomiting, Back pain, Abdominal pain, Lumbar spine pain, Cancer asso ciated pain, Cancer, Cancer, metastatic Disposition: ADMITTED IP TO THIS HOSP Condition: Fair Is patient prescribed a controlled substance at d/c from ED?: No Time of Disposition: 00:10
[2023-04-18] MEDS ORDERED: SODIUM CHLORIDE 0.9% 1,000 ML IV STA (08:22)
[2023-04-18] MEDS ORDERED: MORPHINE SULFATE 4 MG/ML SYRINGE IV STA (08:22)
[2023-04-18] MEDS ORDERED: ONDANSETRON 4 MG/2 ML VIAL IVP STA (08:22)
[2023-04-18 08:47] LABS: Basophils % (A) 1 %; Eosinophils # (A) 0.2 k/uL (0-0.7); Eosinophils % (A) 3 %; HCT 34.3 % (39.0-53.0); HGB 11.9 gm/dL (13.0-17.5); Lymphocytes # (A) 0.8 k/uL (1.0-4.8); Lymphocytes % (A) 11 %; MCH 26.7 pg (25.0-35.0); MCHC 34.7 g/dL (31.0-37.0); MCV 77.1 fL (80.0-100.0); Mean Platelet Volume 7.4; Microcytosis Slight; Monocytes # (A) 0.5 k/uL (0-1.0); Monocytes % (A) 7 %; Neutrophils # (A) 5.6 k/uL (1.3-7.7); Neutrophils % (A) 77 %; Platelet Count 324 k/uL (150-450); RBC 4.45 m/uL (4.30-5.90); RDW 15.6 % (11.5-15.5); WBC 7.3 k/uL (3.8-10.6)
[2023-04-18 08:54] LABS: Partial Thromboplastin Time 35.1 sec (22.0-30.0); Prothrombin Time 29.7 sec (10.0-12.5)
[2023-04-18 08:58] LABS: ALT 20 U/L (4-49); AST 26 U/L (17-59); African American GFR (CKD) >90 (>60 ml/min/1.73 sqM); Albumin 3.8 g/dL (3.5-5.0); Alkaline Phosphatase 98 U/L (38-126); Anion Gap 9 mmol/L; Blood Urea Nitrogen 8 mg/dL (9-20); Calcium 9.3 mg/dL (8.4-10.2); Carbon Dioxide 26 mmol/L (22-30); Chloride 102 mmol/L (98-107); Glucose 111 mg/dL (74-99); Magnesium 1.7 mg/dL (1.6-2.3); Non-African American GFR(CKD) >90 (>60 ml/min/1.73 sqM); Phosphorus 2.5 mg/dL (2.5-4.5); Potassium 3.6 mmol/L (3.5-5.1); Sodium 137 mmol/L (137-145); Total Protein 6.6 g/dL (6.3-8.2)
[2023-04-18 09:07] LABS: NT-Pro-B-Type Natriuretic Pept 305 pg/mL
--- NOTE | 2023-04-18 10:25 | US ---
EXAMINATION TYPE: US gallbladder DATE OF EXAM: 04/18/2023 COMPARISON: NONE, CT to follow CLINICAL INDICATION: Male, 63 years old with history of abd pain; RUQ pain x 1 day TECHNIQUE: Multiple sonographic images of the right upper quadrant are obtained. FINDINGS: EXAM MEASUREMENTS: Liver Length: 14.2 cm Gallbladder Wall: 0.1 cm CBD: 0.4 cm Right Kidney: 11.1x6.4x5.4 cm PLAYGROUND SUPERVISOR NOTES: Pancreas: mostly obscured by bowel Liver: wnl, as visualized Gallbladder: wnl, as visualized Evidence for sonographic Fierro's sign: No CBD: wnl Right Kidney: wnl, as visualized hypoechoic area noted inferior to left lobe of the liver: 4.2x4.6x4.4cm ?mesenteric lymph node? diffi cult to fully assess due to overlying stomach and bowel exam very limited due to patient pain, bowel gas, and rib shadows, liver and gallbladder difficult to image intercostally IMPRESSION: 1. Hypoechoic area adjacent to the region of the left lobe of liver posteriorly measures 4.2 x 4.6 x 4.4 cm in diameter. This is of indeterminate etiology. A CT would be recommended for further evaluati on as this could represent an abnormal lymph node or malignancy. 2. No evidence of cholelithiasis or cholecystitis. 3. No evidence of right-sided hydronephrosis.
--- NOTE | 2023-04-18 10:42 | CT ---
EXAMINATION TYPE: CT abdomen pelvis w con, CT lumbar spine w con DATE OF EXAM: 04/18/2023 COMPARISON: Ultrasound abdomen on 04/18/2023. HISTORY: pt c/o chest pain, epigastric pain, and lower back pain that radiates into right leg. CT DLP: combined DLP 1853.1 mGycm Automated exposure control for dose reduction was used. TECHNIQUE: Helical acquisition of images was performed from the lung bases through the pelvis as wel l as throughout the lumbar spine. CONTRAST: Performed without Oral Contrast and with IV Contrast, patient injected with 100 mL of Isovue 300. FINDINGS: LOWER CHEST : There is a soft tissue pleural-based mass within the right lower lobe on series 201 im age 8 measuring 1.9 x 0.9 cm in diameter. The visualized lung bases otherwise appear clear. There are no pleural or pericardial effusions. ABDOMEN: Liver and Biliary system: Normal. Adrenal glands: There is a right adrenal mass measuring 5.7 x 3.1 cm in diameter compatible with mal ignancy. Left adrenal nodule measures 1.7 cm in diameter and also likely a malignancy/metastasis.. Kidneys and ureters: There is a 2.2 cm cyst within the right upper pole measuring. There is a nodule abutting the posterior aspect of the right kidney measuring 1.4 cm in diameter which is likely box truck washer al to the kidney and most likely a metastasis. Nodule adjacent to the inferior pole of the left kidne y medially measuring 2.4 cm in diameter that is also likely a metastasis. There is a hypoattenuating mass within the inferior pole of the left kidney measuring 3.1 cm in diameter most likely malignancy or metastasis. An additional hypoattenuating nodules also seen in the inferior pole of the left kidne y that measures 1.2 cm. Spleen: Soft tissue mass abutting the posterior superior aspect of the spleen measures 2.[address] likely malignancy/metastasis. Spleen is enlarged measuring 13.7 cm.. Pancreas: Normal. Gallbladder: Normal. Lymph nodes, Peritoneum and mesentery: Mass within the gastrohepatic ligament region measures 5.8 x 4.4 cm in diameter compatible with metastasis. There is numerous additional retroperitoneal nodes in the periaortic region that measure up to 1.8 cm in diameter compatible with numerous lymph node metas tasis. Scattered nodules are also seen within the mesentery measuring up to 1.1 cm in diameter compat ible with metastasis. There is a large omental mass in the left abdomen that measures up to 4.6 cm in diameter compatible with a peritoneal implant. Additional soft tissue mass within the right lower qu adrant compatible with metastasis measuring 2.6 cm in diameter. Several additional soft tissue masses are seen within the paracolic gutters bilaterally compatible with metastasis. Additional peripancrea tic lymph nodes are seen compatible with metastatic disease. Several additional mesenteric masses are noted. Gastrointestinal tract: There are no dilated loops of bowel or free intraperitoneal air. Small hi atal hernia. The appendix is normal. There is mild to moderate descending colonic and sigmoid colonic diverticulosis without evidence of diverticulitis. Aorta/IVC: There is moderate vascular calcification throughout the abdominal aorta without evidence of aneurysmal dilation or dissection. IVC normal. Abdominal wall: Normal. PELVIS: Fluid: There is no free fluid in the pelvis. Lymph Nodes: There is no pelvic or inguinal lymphadenopathy.. Urinary bladder: Normal. BONES: There are no osseous destructive lesions.. Lumbar spine: Vertebral bodies appear well aligned without evidence of fracture, subluxation or dislocation. No emanuel picious lesions are seen within the lumbar spine. ADDITIONAL SIGNIFICANT FINDINGS: None. IMPRESSION: 1. Extensive metastatic disease/malignancy throughout the abdomen and pelvis and pleural-based metast asis in the right lung base. Tissue sampling would give a more definitive diagnosis. 2. Small hiatal hernia. 3. Additional findings as above. 4. No acute osseous abnormality seen throughout the lumbar spine and no suspicious bony lesions.
[2023-04-18] MEDS ORDERED: HYDROmorphone 1 MG/ML 1 ML SYRINGE IVP STA (11:32)
[2023-04-18] MEDS ORDERED: HYDROmorphone 1 MG/ML 1 ML SYRINGE IVP PRN ×2 (11:32→19:11)
[2023-04-18] MEDS ORDERED: NALOXONE 0.4 MG/ML 1 ML VIAL IV PRN (12:18)
[2023-04-18 12:22] LABS: Appearance,Urine Clear (Clear); Bilirubin,Urine Negative (Negative); Blood,Urine Negative (Negative); Color,Urine Yellow; Glucose,Urine (UA) Negative (Negative); Ketones,Urine Negative (Negative); Leukocyte Esterase,Urine Negative (Negative); Nitrite,Urine Negative (Negative); PH, Urine 7.5 (5.0-8.0); Protein,Urine Negative (Negative); Specific Gravity,Urine 1.017 (1.001-1.035)
[2023-04-18] MEDS ORDERED: SODIUM CHLORIDE 0.9% 1,000 ML IV SCH (12:30)
[2023-04-18] MEDS ORDERED: ASPIRIN 81 MG PO SCH (14:30)
[2023-04-18] MEDS: amLODIPine 5 MG TAB PO SCH ×2 (16:05→20:00)
--- NOTE | 2023-04-18 16:35 | P.CONS ---
History of Present Illness - Reason for Consult Consult date: 04/18/23 Concern for malignancy - Chief Complaint Abdominal pain - History of Present Illness Mr. Raza is a 63-year-old gentleman with a past medical history significant for atrial fibrillation status post MARY JO with cardioversion on 04/16/2023 on warfarin who oncology is consulted with regards to potential malignancy. Over the past month, he has noted increased abdominal discomfort along with pain in the right lower chest wall that has been progressive in nature. He has had right back pain with sciatica, which has been the major cause of pain. Abdominal pain has not been more bothersome than the sciatica pain until the past few days. He has noted melanotic stool over the past week without he maturia. He denies any nausea, vomiting, constipation, or significant weight loss. He has had persistent night sweats on an almost nightly basis. He does take warfarin for atrial fibrillation as well as porcine aortic valve. He last took aspirin on 04/15/2023. Due to progressive abdominal pain, he presented to [facility] ED for additional management. CT abdomen/pelvis along with the lumbar spine revealed right pleural-based mass at the right lower lobe measuring 1.9 x 0.9 cm. In addition there are bilateral adrenal gland nodules with a larger right adrenal gland lesion measuring 5.7 x 3.1 cm. 2 nodules within the left kidney at the inferior pole measuring 2.4 x 3.1 cm also seen concerning for metastases. Soft tissue mass abutting the posterior aspect of the spleen measuring 2.1 cm was also noted with splenomegaly. Retroperitoneal lymphadenopathy was seen in addition to large omental mass in the left abdomen measuring 4.6 cm as well as a soft tissue mass in the right lower quadrant measuring 2.6 cm. No suspicious bone lesions were seen. CT was significant for microcytic hypochromic anemia with hemoglobin 9.9 and MCV 77.1. Coag studies revealed INR of 3 PT 29.7 and PTT 35.1. CMP noted no acute metabolic abnormalities. In addition to 1 L bolus of normal saline, he received Zofran 4 mg IV and morphine 4 mg IV in addition to Dilaudid 1 mg IV. He was admitted to internal medicine for additional management recommendations. He does have a history of alcohol use, drinking anywhere from 6-12 beers up until January 2023. He did previously smoke cigarettes for about 40 years and smoked up to 3 packs/day. He quit smoking in 2013. He did serve in the [employer] from [employer]2-9600, including 1 tour of duty in [place] in [place]. Review of Systems 14 point review of systems conducted with pertinent positives and negatives as noted per HPI Past Medical History Past Medical History: Atrial Fibrillation, Coronary Artery Disease (CAD), Heart Failure, Hyperlipidemia, Hypertension, Skin Disorder Additional Past Medical History / Comment(s): chronic lower back pain w/ Lt. sciatica, TBI, hiatal hernia, cardiomyopathy, psoriasis, CHF - had a recent script for Jardiance and states, "I'm not taking it, I saw it on t.v, all the side effects." History of Any Multi-Drug Resistant Organisms: None Reported Past Surgical History: Cardiac Valve Replacement, Coronary Bypass/CABG Additional Past Surgical History / Comment(s): Rt. knee arthroscopy, jaw/facial reconstruction, aortic valve replacement w/ on-x mechanical valve & aortic root repair 2019 Past Anesthesia/Blood Transfusion Reactions: No Reported Reaction Past Psychological History: Anxiety, PTSD Smoking Status: Former smoker Past Alcohol Use History: None Reported Past Drug Use History: None Reported - Past Family History Mother Family Medical History: No Reported History Father Additional Family Medical History / Comment(s): Passed when patient was a child possibly related to heart disease. Medications and Allergies Home Medications Medication Instructions Recorded Confirmed Type Aspirin [Children's Aspirin] 81 mg PO DAILY 11/11/22 04/18/23 History Omeprazole 20 mg PO DAILY 11/11/22 04/18/23 History Warfarin [Coumadin] 7.5 mg PO MOWEFR@209911/11/22 04/18/23 History Warfarin [Coumadin] 10 mg PO SUTUTHSA@209911/11/22 04/18/23 History amLODIPine [Norvasc] 5 mg PO BID 11/11/22 04/18/23 History Albuterol Inhaler [Ventolin Hfa 2 puff INHALATION RT-Q6H PRN 01/29/23 04/18/23 History Inhaler] Furosemide [Lasix] 40 mg PO DAILY 30 Days #30 tab 02/05/23 04/18/23 Rx Metoprolol Tartrate [Lopressor] 12.5 mg PO BID 03/27/23 04/18/23 History Multivitamin [Multivitamins Adult 1 tab PO DAILY 03/27/23 04/18/23 History Gummies] Allergies Allergy/AdvReac Type Severity Reaction Status Date / Time acetaminophen Allergy Rash/Hives Verified 04/18/23 11:48 [From Darvocet-N 100] propoxyphene Allergy Rash/Hives Verified 04/18/23 11:48 [From Darvocet-N 100] amitriptyline [From Elavil] AdvReac NIGHTMARES Verified 04/18/23 11:48 hydralazine AdvReac MIGRAINES Verified 04/18/23 11:48 naproxen [From Naprosyn] AdvReac Nausea Verified 04/18/23 11:48 Physical Exam Vitals: Vital Signs Temp Pulse Resp BP Pulse Ox 04/18/23 16:04 88 18 140/82 97 04/18/23 13:19 99 18 150/92 98 04/18/23 11:40 97.7 F 92 18 126/83 98 04/18/23 10:01 84 18 134/88 98 04/18/23 09:04 98.7 F 93 18 141/89 99 04/18/23 07:24 92 18 139/91 99 Intake and Output 04/18/23 04/18/23 04/18/23 06:59 14:59 22:59 Other: Weight 78.925 kg - Constitutional General appearance: cooperative, no acute distress - EENT Eyes: EOMI ENT: normal oropharynx - Neck Palpable right cervical, bilateral supraclavicular, and soft tissue lesion under the right axilla Neck: lymphadenopathy - Respiratory Respiratory: left: wheezing (Left anterior lung field) - Cardiovascular Rhythm: regular Heart sounds: normal: S1, S2 Abnormal Heart Sounds: click - Gastrointestinal General gastrointestinal: distended, tenderness Localized gastrointestinal: tender: diffuse, mass: LLQ - Integumentary Integumentary: no rash - Neurologic Neurologic: CNII-XII intact - Psychiatric Psychiatric: A&O x's 3 Results CBC & Chem 7: 04/18/23 08:27 04/18/23 08:27 Labs: Abnormal Lab Results - Last 24 Hours (Table) 04/18/23 04/18/23 04/18/23 Range/Units 08:27 08:27 08:27 Hgb 11.9 L (13.0-17.5) gm/dL Hct 34.3 L (39.0-53.0) % MCV 77.1 L (80.0-100.0) fL RDW 15.6 H (11.5-15.5) % Lymphocytes # 0.8 L (1.0-4.8) k/uL PT 29.7 H (10.0-12.5) sec INR 3.0 H (<1.2) APTT 35.1 H (22.0-30.0) sec BUN 8 L (9-20) mg/dL Creatinine 0.59 L (0.66-1.25) mg/dL Glucose 111 H (74-99) mg/dL CT scan - abdomen: report reviewed, image reviewed Assessment and Plan (1) Abdominal pain Current Visit: Yes Status: Acute Code(s): R10.9 - UNSPECIFIED ABDOMINAL PAIN SNOMED Code(s): 61272012 (2) Cancer, metastatic Current Visit: Yes Status: Acute Code(s): C79.9 - SECONDARY MALIGNANT NEOPLA SM OF UNSPECIFIED SITE SNOMED Code(s): 306994658 (3) Microcytic hypochromic anemia Current Visit: Yes Status: Acute Code(s): D50.9 - IRON DEFICIENCY ANEMIA, UNSPECIFIED SNOMED Code(s): 76146475 (4) Afib Current Visit: No Status: Chronic Code(s): I48.91 - UNSPECIFIED ATRIAL FIBRILLATION SNOMED Code(s): 96925588 Plan: #Abdominal pain -Noted to have been present for at least 1 to 2 months prior to initial presentation -This was progressive in nature and eventually became more painful than sciatica of the left leg, which was the main source of pain -He did note melanotic stool over the past week -He has had fatigue with night sweats -Physical exam was significant for right cervical and bilateral supraclavicular lymphadenopathy in addition to palpable soft tissue mass just posterior to the lower portion of the right axilla -Exam was also notable for palpable lump to lesion in the left lower quadrant -CT abdomen/pelvis on admission was notable for pleural-based lesion in the right lower lobe, bilateral adrenal gland nodules, 2 left kidney nodules, soft tissue mass near the spleen, retroperitoneal lymphadenopathy, and abdominal wall nodules in the left lower quadrant and right lower quadrant suspicious for malignancy -From a lung malignancy standpoint, we discussed pursuing biopsy to help confirm diagnosis of malignancy -At this point, it is unclear as to what the primary malignancy would be -LDH and CEA tumor markers ordered -Consult to interventional radiology has been placed for biopsy, the most accessible site appears to be the soft tissue mass behind the right axilla -Hold aspirin and warfarin in anticipation of biopsy this admission #Microcytic hypochromic anemia -He has reported melanotic stool over the past week -Hemoglobin 11.4 on admission with MCV 77.4 -There is concern for iron deficiency secondary to GI blood loss -Iron studies in addition to vitamin B12/methylmalonic acid, and folic acid ordered on labs from admission -Recommend consult to either GI or general surgery for potential colonoscopy #Atrial fibrillation, CAD -Underwent MARY JO with cardioversion on 04/16/2023 -Hold warfarin and aspirin as above for biopsy -Continue remainder of cardiac regimen per primary team Cher Nicole MD
--- NOTE | 2023-04-18 17:50 | P.HPIM ---
History of Present Illness H&P Date: 04/18/23 History of Presenting Illness: Patient is a very pleasant 63-year-old male with a past medical history of coronary artery disease status post CABG, chronic atrial fibrillation status post cardiac ablation 04/16/23, thoracic aortic aneurysm, aortic valve reg urgitation status post mechanical mitral valve replacement on Coumadin, hypertension, hyperlipidemia, and chronic lower back pain. He presented to the emergency department secondary to reports of epigastric/abdominal pain and dark black tarry stools. Patient reports epigastric/abdominal pain initially began approximately 2 months ago and has progressively worsened in frequency and intensity. He reports black tarry stools beginning approximately one week ago and states he has been having persistent intractable lower back pain with sciatica down his left leg. Pt denies having any headache, lightheadedness, dizziness, diaphoresis, chest pain, palpitations, shortness of breath, cough or congestion, hematemesis, hematochezia, difficulty with or changes in urination, or experiencing any numbness/tingling/weakness/swelling in his extremities. Patient does report a large mass under his right axillary region that he also noticed approximately one week ago. Upon arrival to the ER patient underwent full evaluation. Vital signs upon arrival show blood pressure 139/91, heart rate 92, respiratory rate 18, temp 98.7F, SpO2 of 99% on room air. EKG completed showing normal sinus rhythm at 84 bpm Labs completed and reviewed. CBC showing normocytic anemia with hemoglobin of 11.9. Coagulation profile showing therapeutic INR 3.0. BMP unremarkable. Lactic acid normal findings at 1.4. M agnesium slightly low at 1.7. Liver profile unremarkable. Troponin negative at less than 0.012 and proBNP of 305. Urinalysis was negative for blood, proteins, ketones, or infection. Ultrasound of the abdomen was completed showing no evidence of cholelithiasis or cholecystitis, no evidence of hydronephrosis, and reporting a hyperechoic area adjacent to the region of the left lobe of the liver posteriorly measuring 4.2 x 4.6 x 4.4 cm in diameter of unclear etiology recommending computed tomography scan for further evaluation. CT abdomen and pelvis with contrast was completed showing extensive metastatic disease/malignancy throughout the abdomen and pelvis and pleural-based metastasis in the right lung base. CT lumbar spine showing no acute osseous abnormalities seen throughout the lumbar spine and no suspicious bony lesions. Patient was admitted under our services with consultation to hematology/oncology secondary to concerns of metastatic process. Review of systems: Pertinent positives and negatives as discussed in HPI, a complete review of systems was performed and all other systems are negative. Physical exam: Vital signs reviewed and stable. General: Nontoxic, no distress and appears stated age. Derm: Skin warm and dry, normal coloration for ethnicity. Head: Atraumatic, normocephalic and symmetric. Eyes: EOMs intact, no lid lag, and anicteric sclera Mouth: no lip lesions, mucus membranes moist Cardiovascular: regular rate and rhythm with normal S1S2, systolic murmur, posit cameron posterior tibial pulses bilaterally, and cap refill < 2 seconds. Enlarged Supraclavicular lymph nodes palpated Lungs: Respirations even, regular, and unlabored on room air. Lungs CTA bilaterally, no rhonchi, no rales, no wheezing, and no accessory muscle usage. Abdominal: soft, tenderness reported to the epigastric and right upper quadrant region upon palpation. Ext: RNo gross muscle atrophy, no edema, no contractures. Patient with large firm mass/enlarged lymph node right axillary region Neuro: Speech clear, face symmetrical and CN II-XII grossly intact with no noted focal neuro deficits Psych: Alert and oriented to person, place, time, and situation. Appropriate and pleasant affect. Assessment and Plan of Care: Abdominal pain, abnormal CT findings concerning for metastatic process Melena Microcytic anemia -CT abdomen and pelvis with contrast was completed showing extensive metastatic disease/malignancy throughout the abdomen and pelvis and pleural-based metastasis in the right lung base. -Consult placed oncology -Consult placed to gastroenterology -Symptomatic care and pain management with Dilaudid 1 mg every 4 hours as needed for pain. -Hold Coumadin at this time and start patient on heparin infusion as anticoagulation cannot be stopped secondary to patient's mechanical valve -CBC every 6 hours to monitor hemoglobin closely secondary to melena and need for anticoagulation. -PTT every 6 hours -Telemetry monitoring -Protonix 40 mg IVP twice daily -Clear liquid diet pending further recommendations from gastroenterology and oncology Mechanical valve replacement, mitral valve with therapeutic INR History of chronic atrial fibrillation with a slowed ventricular response status post ablation 04/16/23 now maintaining atrial fibrillation HFrEF with EF of 35-40% History of CAD status post CABG Thoracic aortic aneurysm, nonruptured Hypertension Hyperlipidemia -Patient with history of mechanical valve, INR is currently therapeutic at 3.0. Need to hold Coumadin at this time secondary to reports of melena and current anemia and need for biopsies secondary to new findings concerning for extensive metastatic process. Patient started on heparin infusion. PTT to be drawn every 6 hours to monitor for goal therapeutic range of 44-79 seconds. -Continue home medication regimen with amlodipine 5 mg twice daily, Lasix 40 mg daily, and metoprolol 12.5 mg twice daily. Aspirin 81 mg held at this time. Data and imaging reviewed: Please see above detailed documentation in HPI CODE STATUS: Full code DVT prophylaxis: heparin infusion and will bridge back to Coumadin once patient is cleared by hematology and gastroenterology to resume. Anticipated discharge date: Clinical course to determine Anticipated discharge place: Clinical course to determine Patient was seen independently by Nurse Practitioner. This document was prepared using [employer] dictation software. Please allow for errors in cotton stripper while rare they do occur. I reviewed the documentation as provided by the GREG above, who is the original author of this note. I agree with the documented assessment and plan, with the following changes: none Past Medical History Past Medical History: Atrial Fibrillation, Coronary Artery Disease (CAD), Heart Failure, Hyperlipidemia, Hypertension, Skin Disorder Additional Past Medical History / Comment(s): chronic lower back pain w/ Lt. sciatica, TBI, hiatal hernia, cardiomyopathy, psoriasis, CHF - had a recent script for Jardiance and states, "I'm not taking it, I saw it on t.v, all the side effects." History of Any Multi-Drug Resistant Organisms: None Reported Past Surgical History: Cardiac Valve Replacement, Coronary Bypass/CABG Additional Past Surgical History / Comment(s): Rt. knee arthroscopy, jaw/facial reconstruction, aortic valve replacement w/ on-x mechanical valve & aortic root repair 2019 Past Anesthesia/Blood Transfusion Reactions: No Reported Reaction Past Psychological History: Anxiety, PTSD Smoking Status: Former smoker Past Alcohol Use History: None Reported Past Drug Use History: None Reported - Past Family History Mother Family Medical History: No Reported History Father Additional Family Medical History / Comment(s): Passed when patient was a child possibly related to heart disease. Medications and Allergies Home Medications Medication Instructions Recorded Confirmed Type Aspirin [Children's Aspirin] 81 mg PO DAILY 11/11/22 04/18/23 History Omeprazole 20 mg PO DAILY 11/11/22 04/18/23 History Warfarin [Coumadin] 7.5 mg PO MOWEFR@209911/11/22 04/18/23 History Warfarin [Coumadin] 10 mg PO SUTUTHSA@209911/11/22 04/18/23 History amLODIPine [Norvasc] 5 mg PO BID 11/11/22 04/18/23 History Albuterol Inhaler [Ventolin Hfa 2 puff INHALATION RT-Q6H PRN 01/29/23 04/18/23 History Inhaler] Furosemide [Lasix] 40 mg PO DAILY 30 Days #30 tab 02/05/23 04/18/23 Rx Metoprolol Tartrate [Lopressor] 12.5 mg PO BID 03/27/23 04/18/23 History Multivitamin [Multivitamins Adult 1 tab PO DAILY 03/27/23 04/18/23 History Gummies] Allergies Allergy/AdvReac Type Severity Reaction Status Date / Time acetaminophen Allergy Rash/Hives Verified 04/18/23 11:48 [From Darvocet-N 100] propoxyphene Allergy Rash/Hives Verified 04/18/23 11:48 [From Darvocet-N 100] amitriptyline [From Elavil] AdvReac NIGHTMARES Verified 04/18/23 11:48 hydralazine AdvReac MIGRAINES Verified 04/18/23 11:48 naproxen [From Naprosyn] AdvReac Nausea Verified 04/18/23 11:48 Physical Exam Osteopathic Statement: *. No significant issues noted on an osteopathic structural exam other than those noted in the History and Physical/Consult. Vitals: Vital Signs Temp Pulse Resp BP Pulse Ox 04/18/23 13:19 99 18 150/92 98 04/18/23 11:40 97.7 F 92 18 126/83 98 04/18/23 10:01 84 18 134/88 98 04/18/23 09:04 98.7 F 93 18 141/89 99 04/18/23 07:24 92 18 139/91 99 Intake and Output 04/17/23 04/18/23 04/18/23 22:59 06:59 14:59 Other: Weight 78.925 kg Results CBC & Chem 7: 04/19/23 12:23 04/19/23 07:11 Labs: Abnormal Lab Results - Last 24 Hours (Table) 04/18/23 04/18/23 04/18/23 Range/Units 08:27 08:27 08:27 Hgb 11.9 L (13.0-17.5) gm/dL Hct 34.3 L (39.0-53.0) % MCV 77.1 L (80.0-100.0) fL RDW 15.6 H (11.5-15.5) % Lymphocytes # 0.8 L (1.0-4.8) k/uL PT 29.7 H (10.0-12.5) sec INR 3.0 H (<1.2) APTT 35.1 H (22.0-30.0) sec BUN 8 L (9-20) mg/dL Creatinine 0.59 L (0.66-1.25) mg/dL Glucose 111 H (74-99) mg/dL
[2023-04-18] MEDS: HEPARIN SOD,PORK IN 0.45% NACL 25,000 UNIT in 0.45% NACL 1 250ML.BAG IV SCH (17:58)
[2023-04-18 18:46] LABS: Partial Thromboplastin Time 32.2 sec (22.0-30.0)
[2023-04-18] MEDS: PANTOPRAZOLE 40 MG/10 ML VIAL IV SCH (19:59)
[2023-04-18] MEDS: METOPROLOL TARTRATE 12.5 MG TAB PO SCH (20:00)
[2023-04-18] MEDS ORDERED: MORPHINE SULFATE 2 MG/ML SYRINGE IVP STA (21:57)
[2023-04-18 22:22] LABS: INR 2.3 (<1.2); Prothrombin Time 23.1 sec (10.0-12.5)
[2023-04-19] MEDS: MORPHINE SULFATE 2 MG/ML SYRINGE IVP PRN ×5 (00:04→08:05)
[2023-04-19 00:58] LABS: INR 2.1 (<1.2); Partial Thromboplastin Time 39.9 sec (22.0-30.0); Prothrombin Time 20.9 sec (10.0-12.5)
[2023-04-19] MEDS: HEPARIN SODIUM 1,000 UN/ML (10ML VL) IV PRN (01:40)
[2023-04-19 03:14] LABS: % Iron Saturation 8.81 (15.00-50.00); Ferritin 63.6 ng/mL (22.0-322.0)
[2023-04-19 07:36] LABS: INR 1.9 (<1.2); Partial Thromboplastin Time 46.6 sec (22.0-30.0); Prothrombin Time 19.1 sec (10.0-12.5)
[2023-04-19] MEDS: PANTOPRAZOLE 40 MG/10 ML VIAL IV SCH ×2 (08:05→20:37)
[2023-04-19] MEDS: MULTIVITAMINS, THERA 1 EACH TAB PO SCH (08:06)
[2023-04-19] MEDS: FUROSEMIDE 40 MG TAB PO SCH (08:06)
[2023-04-19] MEDS: amLODIPine 5 MG TAB PO SCH ×2 (08:06→20:37)
[2023-04-19] MEDS: METOPROLOL TARTRATE 12.5 MG TAB PO SCH ×2 (08:06→20:37)
[2023-04-19] MEDS ORDERED: NON FORMULARY DRUG (Omeprazole [Omeprazole] 20 MG Capsule.Dr) PO SCH (09:00)
[2023-04-19] MEDS ORDERED: PANTOPRAZOLE 40 MG/10 ML VIAL IV SCH (09:00)
[2023-04-19] MEDS: HYDROmorphone 1 MG/ML 1 ML SYRINGE IVP PRN ×7 (10:04→22:46)
[2023-04-19 10:59] LABS: Basophils # (A) 0.06 X 10*3/uL (0.00-0.10); Eosinophils % (A) 5.1 %; HCT 34.9 % (39.6-50.0); HGB 11.1 g/dL (13.0-17.0); Lymphocytes # (A) 0.95 X 10*3/uL (0.90-5.00); MCH 25.8 pg (27.0-32.0); MCHC 31.8 g/dL (32.0-37.0); MCV 81.2 FL (80.0-97.0); Mean Platelet Volume 10.2 FL (9.5-12.2); Monocytes # (A) 0.59 X 10*3/uL (0.20-1.00); Monocytes % (A) 9.9 %; NRBC Per 100 WBC 0 X 10*3/uL (0.00-0.01); Neutrophils # (A) 4.03 X 10*3/uL (1.80-7.70); Neutrophils % (A) 67.8 %; Platelet Count 325 X 10*3/uL (140-440); RDW 15.7 % (11.5-14.5); WBC 5.94 X 10*3/uL (4.50-10.00)
--- NOTE | 2023-04-19 11:09 | US ---
EXAMINATION TYPE: US axilla RT DATE OF EXAM: 04/19/2023 COMPARISON: NONE CLINICAL INDICATION: Male, 63 years old with history of please U/S mass under right axilla; Palpable right axilla for 1 week TECHNIQUE: Grayscale imaging of the palpable abnormality in the right axilla. FINDINGS: Complex hypoechoic lesion right axilla within palpable area = 2.2 x 2.3 x 2.2cm IMPRESSION: Complex mass in the right axilla. No abnormality. There is some surrounding color Doppler flow. Findings suspicious for metastatic disease given 04/18/2023.
--- NOTE | 2023-04-19 11:20 | P.CRDCN ---
History of Present Illness History of present illness: HISTORY OF PRESENT ILLNESS: This is a 63-year-old male with a past medical history significant for paroxysmal atrial fibrillation, mild nonobstructive CAD, hypertension, hyperlipidemia, On-X mechanical aortic valve replacement in September 2019 secondary to bicuspid aortic valve, and ascending aortic aneurysm status post bessy-arch repair. Patient follows in the office with Dr. Venegas. We have been asked to see the patient in consultation for anticoagulation management. Patient examined at the bedside. Patient recently underwent outpatient MARY JO and cardioversion on with Dr. Venegas with successful conversion to sinus mechanism. The patient states over the past few days he has been having pain in his left hip and his lower back. He states that a couple days ago he noticed a lump in his right axilla region which had not previously been there. He also reports a few days ago he woke up with pain in the middle of his chest and then diffuse abdominal pain. He also reports having black stools for the past week. He currently denies any chest pain or pressure. He denies any shortness of breath. The patient states that he quit drinking alcohol in January and has lost some weight since that time which he treated to not drinking. He is a former cigar ette smoker and quit smoking 10 years ago. * EKG reveals sinus mechanism with no signs of acute ischemia * Current home cardiac medications include aspirin 81 mg daily, Lasix 40 mg daily, metoprolol tartrate 12.5 mg twice a day, Norvasc 5 mg twice a day, warfarin 7.5 mg Saturday and 10 mg Saturday * Most recent echocardiogram obtained in January 2023 revealed ejection fraction 35-40% with normally functioning mechanical aortic valve * Cardiac catheterization history: 2019 at the [facility] revealing left main 20-30% stenosis, diagonal 1 20% stenosis, OM 20%, and RCA 20% REVIEW OF SYSTEMS: At the time of my exam: CONSTITUTIONAL: Denies fever or chills. HEENT: Denies blurred vision, vision changes, or eye pain. Denies hemoptysis CARDIOVASCULAR: Denies chest pain. Denies orthopnea. Denies PND. Denies palpitat ions RESPIRATORY: Denies shortness of breath. GASTROINTESTINAL: + abdominal pain. Denies nausea or vomiting. HEMATOLOGIC: Denies bleeding disorders. GENITOURINARY: Denies any blood in urine. SKIN: Denies pruitis. Denies rash. PHYSICAL EXAM: VITAL SIGNS: Reviewed. GENERAL: Well-developed in no acute distress. HEENT: Head is normocephalic. Pupils are equal, round. Sclerae anicteric. Mucous membranes of the mouth are moist. Neck supple. No JVD or thyromegaly LUNGS: Respirations even and unlabored. Lungs essentially clear to auscultation bilaterally. HEART: Regular rate and rhythm. S1 and S2 heard. ABDOMEN: Soft. Nondistended. Nontender. EXTREMITIES: Normal range of motion. No clubbing or cyanosis. Peripheral pulses intact. No lower extremity edema NEUROLOGIC: Awake and alert. Oriented x 3. ASSESSMENT: Abdominal pain, CT scan revealing extensive metastatic disease throughout abdomen and pelvis and pleural-based metastasis and right lung base Melena x 1 week Right axilla mass Bicuspid aortic valve, status post On-X mechanical aortic valve replacement in September 2019, [facility] 2019 Mild nonobstructive CAD per cardiac catheterization, [facility] 2019 Nonischemic cardiomyopathy, ejection fraction 35-40% Paroxysmal atrial fibrillation Status post MARY JO and cardioversion 04/16/2023, maintaining sinus mechanism Ascending aortic aneurysm, s/p bessy-arch repair Hypertension Hyperlipidemia Former nicotine dependence PLAN: Continue current cardiac medications Coumadin on hold Patient currently on IV Heparin. IV heparin may be held for 4 hours prior to any procedures and then resumed post procedure. Further recommendations pending patient course Nurse practitioner note has been reviewed by physician. Signing provider agrees with the documented findings, assessment, and plan of care. Past Medical History Past Medical History: Atrial Fibrillation, Coronary Artery Disease (CAD), Heart Failure, Hyperlipidemia, Hypertension, Skin Disorder Additional Past Medical History / Comment(s): chronic lower back pain w/ Lt. sciatica, TBI, hiatal hernia, cardiomyopathy, psoriasis, CHF - had a recent scri pt for Jardiance and states, "I'm not taking it, I saw it on t.v, all the side effects." History of Any Multi-Drug Resistant Organisms: None Reported Past Surgical History: Cardiac Valve Replacement, Coronary Bypass/CABG Additional Past Surgical History / Comment(s): Rt. knee arthroscopy, jaw/facial reconstruction, aortic valve replacement w/ on-x mechanical valve & aortic root repair 2019 Past Anesthesia/Blood Transfusion Reactions: No Reported Reaction Past Psychological History: Anxiety, PTSD Smoking Status: Former smoker Past Alcohol Use History: None Reported Past Drug Use History: None Reported - Past Family History Mother Family Medical History: No Reported History Father Additional Family Medical History / Comment(s): Passed when patient was a child possibly related to heart disease. Medications and Allergies Home Medications Medication Instructions Recorded Confirmed Type Aspirin [Children's Aspirin] 81 mg PO DAILY 11/11/22 04/18/23 History Omeprazole 20 mg PO DAILY 11/11/22 04/18/23 History Warfarin [Coumadin] 7.5 mg PO MOWEFR@209911/11/22 04/18/23 History Warfarin [Coumadin] 10 mg PO SUTUTHSA@209911/11/22 04/18/23 History amLODIPine [Norvasc] 5 mg PO BID 11/11/22 04/18/23 History Albuterol Inhaler [Ventolin Hfa 2 puff INHALATION RT-Q6H PRN 01/29/23 04/18/23 History Inhaler] Furosemide [Lasix] 40 mg PO DAILY 30 Days #30 tab 02/05/23 04/18/23 Rx Metoprolol Tartrate [Lopressor] 12.5 mg PO BID 03/27/23 04/18/23 History Multivitamin [Multivitamins Adult 1 tab PO DAILY 03/27/23 04/18/23 History Gummies] Allergies Allergy/AdvReac Type Severity Reaction Status Date / Time acetaminophen Allergy Rash/Hives Verified 04/18/23 11:48 [From Darvocet-N 100] propoxyphene Allergy Rash/Hives Verified 04/18/23 11:48 [From Darvocet-N 100] amitriptyline [From Elavil] AdvReac NIGHTMARES Verified 04/18/23 11:48 hydralazine AdvReac MIGRAINES Verified 04/18/23 11:48 naproxen [From Naprosyn] AdvReac Nausea Verified 04/18/23 11:48 Physical Exam Vitals: Vital Signs Temp Pulse Pulse Resp BP BP Pulse Ox 04/19/23 07:37 97.6 F 83 18 135/72 95 04/19/23 02:00 97.8 F 79 18 122/71 94 L 04/18/23 20:03 91 F L 18 137/81 04/18/23 20:00 18 12/21/23 17:29 97.7 F 87 16 137/78 94 L 04/18/23 16:04 88 18 140/82 97 04/18/23 13:19 99 18 150/92 98 04/18/23 11:40 97.7 F 92 18 126/83 98 Intake and Output 04/18/23 04/19/23 04/19/23 22:59 06:59 14:59 Intake Total 400 73.558 Output Total 1700 Balance 400 -1626.442 Intake: Intake, IV Titration 73.558 Amount Heparin Sod,Pork in 0.45% 73.558 NaCl 25,000 unit In 0.45 % NaCl 1 250ml.bag @ 12 UNITS/KG/HR 9.471 mls/hr IV .Q24H ROB Rx#: [id number] Oral 400 Output: Urine 1700 Other: Voiding Method Toilet Weight 78.925 kg Results 04/19/23 07:11 04/18/23 08:27 Cardiac Enzymes 04/18/23 Range/Units 08:27 Lactate Dehydrogenase 429 H (120-246) U/L Coagulation 04/18/23 04/19/23 04/19/23 Range/Units 18:15 00:07 07:11 PT 23.1 H 20.9 H 19.1 H (10.0-12.5) sec APTT 32.2 H 39.9 H 46.6 H (22.0-30.0) sec Current Medications Generic Name Dose Route Start Last Admin Trade Name Freq PRN Reason Stop Dose Admin Amlodipine Besylate 5 mg 04/18/23 14:15 04/19/23 08:06 Amlodipine 5 Mg Tab PO 5 mg BID ROB Administration Furosemide 40 mg 04/19/23 09:00 04/19/23 08:06 Furosemide 40 Mg Tab PO 40 mg DAILY ROB Administration Heparin Sodium (Porcine) 0 unit 04/18/23 17:01 04/19/23 01:40 Heparin Sodium 1,000 Un/Ml (10ml Vl) IV 1,973 unit PER PROTOCOL PRN Administration Low PTT Protocol Hydromorphone HCl 1 mg 04/19/23 08:29 04/19/23 10:04 Hydromorphone 1 Mg/Ml 1 Ml Syringe IVP 1 mg Q2H PRN Administration Pain Heparin Sodium/Sodium Chloride 250 mls @ 9.471 mls/hr 04/18/23 17:15 04/19/23 01:44 25,000 unit/ Sodium Chloride IV 14.53 units/kg/hr .Q24H ROB 11.47 mls/hr Titration Protocol 12 UNITS/KG/HR Metoprolol Tartrate 12.5 mg 04/18/23 21:00 04/19/23 08:06 Metoprolol Tartrate 12.5 Mg Tab PO 12.5 mg BID ROB Administration Multivitamins 1 each 04/19/23 09:00 04/19/23 08:06 Multivitamins, Thera 1 Each Tab PO 1 each DAILY ROB Administration Naloxone HCl 0.2 mg 04/18/23 12:18 Naloxone 0.4 Mg/Ml 1 Ml Vial IV Q2M PRN Opioid Reversal Ondansetron HCl 4 mg 04/18/23 12:18 Ondansetron 4 Mg/2 Ml Vial IVP Q8HR PRN Nausea And Vomiting Pantoprazole Sodium 40 mg 04/18/23 21:00 04/19/23 08:05 Pantoprazole 40 Mg/10 Ml Vial IV 40 mg BID ROB Administration Intake and Output 04/18/23 04/19/23 04/19/23 22:59 06:59 14:59 Intake Total 400 73.558 Output Total 1700 Balance 400 -1626.442 Intake: Intake, IV Titration 73.558 Amount Heparin Sod,Pork in 0.45% 73.558 NaCl 25,000 unit In 0.45 % NaCl 1 250ml.bag @ 12 UNITS/KG/HR 9.471 mls/hr IV .Q24H ROB Rx#: [id number] Oral 400 Output: Urine 1700 Other: Voiding Method Toilet Weight 78.925 kg 04/18/23 08:27 04/18/23 08:27
[2023-04-19 11:29] LABS: ALT 15 U/L (10-49); AST 20 U/L (14-35); Albumin 3.6 g/dL (3.8-4.9); Alkaline Phosphatase 101 U/L (41-126); BUN/Creat Ratio 9.29 Ratio (12.00-20.00); Blood Urea Nitrogen 6.5 mg/dL (9.0-27.0); Carbon Dioxide 22.7 mmol/L (21.6-31.8); Chloride 106 mmol/L (96-109); Glucose 98 mg/dL (70-110); Lipase 24 U/L (14-60); Magnesium 1.6 mg/dL (1.5-2.4); Phosphorus 3.2 mg/dL (2.4-5.1); Sodium 139 mmol/L (135-145); Total Bilirubin 1.1 mg/dL (0.3-1.2); Total Protein 5.6 g/dL (6.2-8.2)
[2023-04-19 12:53] LABS: INR 1.7 (<1.2); Partial Thromboplastin Time 31.1 sec (22.0-30.0); Prothrombin Time 17.4 sec (10.0-12.5)
--- NOTE | 2023-04-19 12:57 | P.CONS ---
History of Present Illness - Reason for Consult Consult date: 04/19/23 Melena Requesting physician: Elio Lucio - Chief Complaint Abdominal and back pain - History of Present Illness This is a pleasant 63-year-old white male who presented to the emergency department with complaints of a chest, abdominal and back pain. Patient states he medical history that includes mechanical aortic valve is status post aortic aneurysm repair, chronic back pain, chronic atrial fibrillation, coronary artery disease, hypertension, hyperlipidemia, and former smoker. He had a recent cardiac ablation 04/16/2023 he was on Coumadin which is currently on hold and was started on a heparin drip. He states abdominal pain started in his chest and upper abdomen following the ablation. He does admit that he feels very full after eating. He denies any nausea, vomiting or diarrhea. States he's had black stools over the last 2 weeks duration. Again he does take Coumadin he had INR of 3.0 on admission. Hemoglobin stable at 11.9 on admission. Denies any previous EGD or colonoscopy. He had multiple imaging on admission including gallbladder ultrasound CT of the abdomen and pelvis and lumbar spine CT concerning for metastatic disease in the abdomen and pelvis. Review of Systems REVIEW OF SYSTEMS: CARDIOPULMONARY: Complaints of chest pain, musculoskeletal. No shortness of breath. Gastrointestinal: Upper abdominal pain. No nausea or vomiting. No hematemesis, coffee-ground emesis. No rectal bleeding, reports black stool 2 week duration. GENITOURINARY: No dysuria or hematuria. MUSCULOSKELETAL: Decreased activity and ambulation due to back pain. Chronic low back pain with sciatic pain. SKIN: No rashes. No jaundice. ENDOCRINE: No chills, fevers. No excessive weight gain or loss. No polydipsia or polyuria. PSYCHIATRIC: Unremarkable. NEUROLOGY: No change in mental status. Denies dizziness, headache. ENT: Vision unremarkable. CONSTITUTIONAL: No recent weight loss. No fever, chills, night sweats. Past Medical History Past Medical History: Atrial Fibrillation, Coronary Artery Disease (CAD), Heart Failure, Hyperlipidemia, Hypertension, Skin Disorder Additional Past Medical History / Comment(s): chronic lower back pain w/ Lt. sciatica, TBI, hiatal hernia, cardiomyopathy, psoriasis, CHF - had a recent script for Jardiance and states, "I'm not taking it, I saw it on t.v, all the side effects." History of Any Multi-Drug Resistant Organisms: None Reported Past Surgical History: Cardiac Valve Replacement, Coronary Bypass/CABG Additional Past Surgical History / Comment(s): Rt. knee arthroscopy, jaw/facial reconstruction, aortic valve replacement w/ on-x mechanical valve & aortic root repair 2019 Past Anesthesia/Blood Transfusion Reactions: No Reported Reaction Past Psychological History: Anxiety, PTSD Smoking Status: Former smoker Past Alcohol Use History: None Reported Past Drug Use History: None Reported - Past Family History Mother Family Medical History: No Reported History Father Additional Family Medical History / Comment(s): Passed when patient was a child possibly related to heart disease. Medications and Allergies Home Medications Medication Instructions Recorded Confirmed Type Aspirin [Children's Aspirin] 81 mg PO DAILY 11/11/22 04/18/23 History Omeprazole 20 mg PO DAILY 11/11/22 04/18/23 History Warfarin [Coumadin] 7.5 mg PO MOWEFR@209911/11/22 04/18/23 History Warfarin [Coumadin] 10 mg PO SUTUTHSA@209911/11/22 04/18/23 History amLODIPine [Norvasc] 5 mg PO BID 11/11/22 04/18/23 History Albuterol Inhaler [Ventolin Hfa 2 puff INHALATION RT-Q6H PRN 01/29/23 04/18/23 History Inhaler] Furosemide [Lasix] 40 mg PO DAILY 30 Days #30 tab 02/05/23 04/18/23 Rx Metoprolol Tartrate [Lopressor] 12.5 mg PO BID 03/27/23 04/18/23 History Multivitamin [Multivitamins Adult 1 tab PO DAILY 03/27/23 04/18/23 History Gummies] Allergies Allergy/AdvReac Type Severity Reaction Status Date / Time acetaminophen Allergy Rash/Hives Verified 04/18/23 11:48 [From Darvocet-N 100] propoxyphene Allergy Rash/Hives Verified 04/18/23 11:48 [From Darvocet-N 100] amitriptyline [From Elavil] AdvReac NIGHTMARES Verified 04/18/23 11:48 hydralazine AdvReac MIGRAINES Verified 04/18/23 11:48 naproxen [From Naprosyn] AdvReac Nausea Verified 04/18/23 11:48 Physical Exam Vitals: Vital Signs Temp Pulse Pulse Resp BP BP Pulse Ox 04/19/23 02:00 97.8 F 79 18 122/71 94 L 04/18/23 20:03 91 F L 18 137/81 04/18/23 20:00 18 04/18/23 17:29 97.7 F 87 16 137/78 94 L 04/18/23 16:04 88 18 140/82 97 04/18/23 13:19 99 18 150/92 98 04/18/23 11:40 97.7 F 92 18 126/83 98 04/18/23 10:01 84 18 134/88 98 04/18/23 09:04 98.7 F 93 18 141/89 99 04/18/23 07:24 92 18 139/91 99 Intake and Output 04/18/23 04/18/23 04/19/23 14:59 22:59 06:59 Intake Total 400 73.558 Output Total 1700 Balance 400 -1626.442 Intake: Intake, IV Titration 73.558 Amount Heparin Sod,Pork in 0.45% 73.558 NaCl 25,000 unit In 0.45 % NaCl 1 250ml.bag @ 12 UNITS/KG/HR 9.471 mls/hr IV .Q24H [facility] Rx#: [id number] Oral 400 Output: Urine 1700 Other: Voiding Method Toilet Weight 78.925 kg 78.925 kg General appearance: The patient is alert, oriented, appears in no acute distress. HET: Head is normocephalic and atraumatic. Conjunctiva pink. Sclera anicteric. Neck: Supple without lymphadenopathy. Trachea midline. Heart: Regular. Lungs: Equal expansion, normal respiratory effort. Abdomen: Soft, gastric TTP, nondistended. No guarding or rigidity. Skin: No rashes. No jaundice. Extremities: Normal skin color and turgor. No pedal edema. Neurological: No focal deficits. Alert and oriented x3. Results CBC & Chem 7: 04/19/23 07:11 04/19/23 07:11 Labs: Abnormal Lab Results - Last 24 Hours (Table) 04/18/23 04/18/23 04/18/23 Range/Units 08:27 08:27 08:27 Hgb 11.9 L (13.0-17.5) gm/dL Hct 34.3 L (39.0-53.0) % MCV 77.1 L (80.0-100.0) fL RDW 15.6 H (11.5-15.5) % Lymphocytes # 0.8 L (1.0-4.8) k/uL PT 29.7 H (10.0-12.5) sec INR 3.0 H (<1.2) APTT 35.1 H (22.0-30.0) sec BUN 8 L (9-20) mg/dL Creatinine 0.59 L (0.66-1.25) mg/dL Glucose 111 H (74-99) mg/dL Iron (65-175) UG/DL % Saturation (15.00-50.00) Lactate Dehydrogenase (120-246) U/L Carcinoembryonic Ag (0.0-4.9) ng/mL Vitamin B12 (200.0-944.0) pg/mL 04/18/23 04/18/23 04/18/23 Range/Units 08:27 08:27 18:15 Hgb (13.0-17.5) gm/dL Hct (39.0-53.0) % MCV (80.0-100.0) fL RDW (11.5-15.5) % Lymphocytes # (1.0-4.8) k/uL PT 23.1 H (10.0-12.5) sec INR 2.3 H (<1.2) APTT 32.2 H (22.0-30.0) sec BUN (9-20) mg/dL Creatinine (0.66-1.25) mg/dL Glucose (74-99) mg/dL Iron 37 L (65-175) UG/DL % Saturation 8.81 L (15.00-50.00) Lactate Dehydrogenase 429 H (120-246) U/L Carcinoembryonic Ag 28.0 H (0.0-4.9) ng/mL Vitamin B12 2749.0 H (200.0-944.0) pg/mL 04/19/23 Range/Units 00:07 Hgb (13.0-17.5) gm/dL Hct (39.0-53.0) % MCV (80.0-100.0) fL RDW (11.5-15.5) % Lymphocytes # (1.0-4.8) k/uL PT 20.9 H (10.0-12.5) sec INR 2.1 H (<1.2) APTT 39.9 H (22.0-30.0) sec BUN (9-20) mg/dL Creatinine (0.66-1.25) mg/dL Glucose (74-99) mg/dL Iron (65-175) UG/DL % Saturation (15.00-50.00) Lactate Dehydrogenase (120-246) U/L Carcinoembryonic Ag (0.0-4.9) ng/mL Vitamin B12 (200.0-944.0) pg/mL Comments: Gallbladder ultrasound hyperechoic area adjacent to the region of the left lobe of liver posteriorly measures 4.2 x 4.6 x 4.4 cm in diameter this is indeterminant etiology. CT would recommend for further evaluation as this could represent an abnormal lymph node or malignancy. No evidence of cholelithiasis or cholecystitis. No evidence of right-sided hydronephrosis. CT abdomen and pelvis, CT lumbar spine with contrast report extensive metastatic disease/malignancy throughout the abdomen and pelvis and pleural-based metastasis in the right lung base. Tissue sampling would get a more definitive diagnosis. Small hiatal hernia. Additional findings as above. No acute osseous abnormalities seen throughout the lumbar spine and no suspicious bony lesions. Assessment and Plan (1) Melena Narrative/Plan: 63-year-old male presenting with abdominal pain and chest pain, who underwent imaging with concerns of metastatic disease. Placenta patient reporting melena over the last 2 weeks duration who is never had an EGD or colonoscopy in the past. He is complaining of upper abdominal discomfort as well as the chest pain. Patient has history of atrial fibrillation and mechanical aortic valve and is currently on Coumadin with a presenting INR of 3.0, and a repeat today of 2.0. Due to INR level will defer endoscopic evaluation at this time. We'll plan for EGD and colonoscopy with biopsies next week. Patient is currently on heparin, this will need to be held at least 4 hours prior to procedure. Current Visit: Yes Status: Acute Code(s): K92.1 - MELENA SNOMED Code(s): 8828549 (2) Abdominal pain Current Visit: Yes Status: Acute Code(s): R10.9 - UNSPECIFIED ABDOMINAL PAIN SNOMED Code(s): 63326972 (3) Back pain Current Visit: Yes Status: Acute Code(s): M54.9 - DORSALGIA, UNSPECIFIED S NOMED Code(s): 675677921 (4) Chest pain Current Visit: No Status: Acute Code(s): R07.9 - CHEST PAIN, UNSPECIFIED SNOMED Code(s): 56051270 (5) Cancer, metastatic Narrative/Plan: Suspected metastatic cancer according to recent imaging. Current Visit: Yes Status: Acute Code(s): C79.9 - SECONDARY MALIGNANT NEOPLASM OF UNSPECIFIED SITE SNOMED Code(s): 100567549 (6) Afib Current Visit: No Status: Chronic Code(s): I48.91 - UNSPECIFIED ATRIAL FIBRILLATION SNOMED Code(s): 93785432 Plan: 1. Continue symptomatic and supportive care 2. Diet as tolerated 3. Protonix 40 mg daily 4. Hold Coumadin 5. Will need to hold heparin drip 4 hours prior to EGD and colonoscopy 6. Nothing by mouth after midnight for scheduled EGD and colonoscopy on 04/23/2023 Thank you for this consultation, gastroenterology will be signing off at this time. There will be no gastroenterology coverage in the hospital. Dr. Esme Antonio I agree with the dictator's note, documented as a scribe by Colleen Cooper.
--- NOTE | 2023-04-19 12:58 | P.PN ---
Subjective Progress Note Date: 04/19/23 No acute events. Patient is scheduled today for right axilla biopsy. Counts stable. Hemoglobin 11.1, platelets 325,000. Objective - Vital Signs Vital signs: Vital Signs Temp 97.6 F 04/19/23 07:37 Pulse 83 04/19/23 07:37 Resp 18 04/19/23 07:37 BP 135/72 04/19/23 07:37 Pulse Ox 95 04/19/23 07:37 FiO2 Intake & Output 04/18/23 04/19/23 04/19/23 18:59 06:59 18:59 Intake Total 473.558 Output Total 1700 900 Balance -1226.442 -900 Weight 78.925 kg Intake: Intake, IV Titration 73.558 Amount Heparin Sod,Pork in 0.45% 73.558 NaCl 25,000 unit In 0.45 % NaCl 1 250ml.bag @ 12 UNITS/KG/HR 9.471 mls/hr IV .Q24H [facility] Rx#: [id number] Oral 400 Output: Urine 1700 900 Other: Voiding Method Toilet Toilet - Constitutional General appearance: Present: no acute distress - EENT Eyes: Present: anicteric sclerae, EOMI ENT: Present: hearing grossly normal - Respiratory Details: breathing even and unlabored - Cardiovascular Details: skin warm and dry - Integumentary Integumentary: Absent: cyanotic, jaundiced - Neurologic Neurologic Comment(s): grossly intact - Musculoskeletal Musculoskeletal: Present: strength equal bilaterally - Psychiatric Psychiatric: Present: A&O x's 3, appropriate affect, intact judgment & insight - Labs CBC & Chem 7: 04/19/23 07:11 04/19/23 07:11 Labs: Abnormal Lab Results - Last 24 Hours (Table) 04/18/23 04/18/23 04/18/23 Range/Units 08:27 08:27 18:15 RBC (4.40-5.60) X 10*6/uL Hgb (13.0-17.0) g/dL Hct (39.6-50.0) % MCH (27.0-32.0) pg MCHC (32.0-37.0) g/dL RDW (11.5-14.5) % PT 23.1 H (10.0-12.5) sec INR 2.3 H (<1.2) APTT 32.2 H (22.0-30.0) sec BUN (9.0-27.0) mg/dL BUN/Creatinine Ratio (12.00-20.00) Ratio Iron 37 L (65-175) UG/DL % Saturation 8.81 L (15.00-50.00) Lactate Dehydrogenase 429 H (120-246) U/L Total Protein (6.2-8.2) g/dL Albumin (3.8-4.9) g/dL Carcinoembryonic Ag 28.0 H (0.0-4.9) ng/mL Vitamin B12 2749.0 H (200.0-944.0) pg/mL 04/19/23 04/19/23 04/19/23 Range/Units 00:07 07:11 07:11 RBC 4.30 L (4.40-5.60) X 10*6/uL Hgb 11.1 L (13.0-17.0) g/dL Hct 34.9 L (39.6-50.0) % MCH 25.8 L (27.0-32.0) pg MCHC 31.8 L (32.0-37.0) g/dL RDW 15.7 H (11.5-14.5) % PT 20.9 H (10.0-12.5) sec INR 2.1 H (<1.2) APTT 39.9 H (22.0-30.0) sec BUN 6.5 L (9.0-27.0) mg/dL BUN/Creatinine Ratio 9.29 L (12.00-20.00) Ratio Iron (65-175) UG/DL % Saturation (15.00-50.00) Lactate Dehydrogenase (120-246) U/L Total Protein 5.6 L (6.2-8.2) g/dL Albumin 3.6 L (3.8-4.9) g/dL Carcinoembryonic Ag (0.0-4.9) ng/mL Vitamin B12 (200.0-944.0) pg/mL 04/19/23 Range/Units 07:11 RBC (4.40-5.60) X 10*6/uL Hgb (13.0-17.0) g/dL Hct (39.6-50.0) % MCH (27.0-32.0) pg MCHC (32.0-37.0) g/dL RDW (11.5-14.5) % PT 19.1 H (10.0-12.5) sec INR 1.9 H (<1.2) APTT 46.6 H (22.0-30.0) sec BUN (9.0-27.0) mg/dL BUN/Creatinine Ratio (12.00-20.00) Ratio Iron (65-175) UG/DL % Saturation (15.00-50.00) Lactate Dehydrogenase (120-246) U/L Total Protein (6.2-8.2) g/dL Albumin (3.8-4.9) g/dL Carcinoembryonic Ag (0.0-4.9) ng/mL Vitamin B12 (200.0-944.0) pg/mL Assessment and Plan (1) Abdominal pain Current Visit: Yes Status: Acute Priority: High Code(s): R10.9 - UNSPECIFIED ABDOMINAL PAIN SNOMED Code(s): 20972392 (2) Microcytic hypochromic anemia Current Visit: Yes Status: Acute Priority: High Code(s): D50.9 - IRON DEFICIENCY ANEMIA, UNSPECIFIED SNOMED Code(s): 99492499 (3) Afib Current Visit: Yes Status: Chronic Priority: Medium Code(s): I48.91 - UNSPECIFIED ATRIAL FIBRILLATION SNOMED Code(s): 95665771 Plan: #Abdominal pain -Noted to have been present for at least 1 to 2 months prior to initial presentation -This was progressive in nature and eventually became more painful than sciatica of the left leg, which was the main source of pain -He did note melanotic stool over the past week -He has had fatigue with night sweats -Physical exam was significant for right cervical and bilateral supraclavicular lymphadenopathy in addition to palpable soft tissue mass just posterior to the lower portion of the right axilla -Exam was also notable for palpable lump to lesion in the left lower quadrant -CT abdomen/pelvis on admission was notable for pleural-based lesion in the right lower lobe, bilateral adrenal gland nodules, 2 left kidney nodules, soft tissue mass near the spleen, retroperitoneal lymphadenopathy, and abdominal wall nodules in the left lower quadrant and right lower quadrant suspicious for mal ignancy -From a lung malignancy standpoint, we discussed pursuing biopsy to help confirm diagnosis of malignancy -At this point, it is unclear as to what the primary malignancy would be -LDH elevated at 429. CEA mildly elevated at 28. -Consult to interventional radiology has been placed for biopsy. Plan for right axilla biopsy today -Hold aspirin and warfarin in anticipation of biopsy this admission Above findings and POC discussed with patient in detail #Microcytic hypochromic anemia -He has reported melanotic stool over the past week -Hemoglobin 11.4 on admission with MCV 77.4 -There is concern for iron deficiency secondary to GI blood loss -Iron studies consistent with SHARON. IV iron started . No vitamin B12 or folate deficiency noted -GI consulted, plan for endoscopic evaluation 04/23 #Atrial fibrillation, CAD -Underwent MARY JO with cardioversion on 04/16/2023 -Hold warfarin and aspirin as above for biopsy. Heparin has been started, will hold for biopsy today -Continue remainder of cardiac regimen per primary team
[2023-04-19] MEDS: SODIUM FERRIC GLUCONAT-SUCROSE 125 MG in SODIUM CHLORIDE 0.9% 100 ML IVPB SCH (13:04)
--- NOTE | 2023-04-19 14:31 | US ---
EXAMINATION TYPE: US biopsy soft tissue/muscle DATE OF EXAM: 04/19/2023 2:24 PM CLINICAL INDICATION:Male, 63 years old with history of right axillary mass. COMPARISON: Ultrasound 04/19/2023. ATTENDING: Dr. Gagan Mane PROCEDURE: Informed consent was obtained. The risks and benefits of the procedure were discussed with the patien t. The site was marked. Timeout procedure was performed Ultrasound imaging of the thyroid demonstrates right axilla demonstrates heterogenous hypoechoic mass . The patient was prepped, draped in the usual sterile fashion, and locally anesthetized with 1% lidoca ine. 3 passes with 18-gauge core biopsy gun were obtained. Samples were sent to the pathology departm ent for further analysis. Patient tolerated the procedure without incident and was sent home in stab le condition. IMPRESSION: Successful ultrasound guided right axillary mass biopsy with 3 18-gauge cores obtained.
[2023-04-19 15:54] LABS: Basophils # (A) 0.05 X 10*3/uL (0.00-0.10); Basophils % (A) 0.8 %; Eosinophils # (A) 0.33 X 10*3/uL (0.04-0.35); Eosinophils % (A) 5.2 %; HCT 35.6 % (39.6-50.0); HGB 11.5 g/dL (13.0-17.0); Lymphocytes # (A) 0.92 X 10*3/uL (0.90-5.00); Lymphocytes % (A) 14.4 %; MCH 26.1 pg (27.0-32.0); MCHC 32.3 g/dL (32.0-37.0); MCV 80.9 FL (80.0-97.0); Mean Platelet Volume 10.1 FL (9.5-12.2); Monocytes # (A) 0.61 X 10*3/uL (0.20-1.00); Monocytes % (A) 9.6 %; NRBC Per 100 WBC 0 X 10*3/uL (0.00-0.01); Neutrophils # (A) 4.44 X 10*3/uL (1.80-7.70); Neutrophils % (A) 69.5 %; Platelet Count 334 X 10*3/uL (140-440); RDW 15.7 % (11.5-14.5); WBC 6.38 X 10*3/uL (4.50-10.00)
[2023-04-19] MEDS ORDERED: MAGNESIUM OXIDE 400 MG TAB PO STA (17:56)
--- NOTE | 2023-04-19 18:00 | P.PN ---
Subjective Progress Note Date: 04/19/23 Hospital Course: Patient is a very pleasant 63-year-old male with a past medical history of chronic atrial fibrillation status post cardiac ablation 04/16/23, thoracic aortic aneurysm status post repair, aortic valve regurgitation status post mechanical valve replacement on Coumadin, hypertension, hyperlipidemia, and chronic lower back pain. He presented to the emergency department on 04/18/23 secondary to reports of epigastric/abdominal pain, dark black tarry stools, and persistent intractable lower back pain with sciatica down his left leg. Upon arrival to the ER patient underwent full evaluation. Vital signs upon arrival show blood pressure 139/91, heart rate 92, respiratory rate 18, temp 98.7F, SpO2 of 99% on room air. EKG completed showing normal sinus rhythm at 84 bpm Labs completed and reviewed. CBC showing normocytic anemia with hemoglobin of 11.9. Coagulation profile showing therapeutic INR 3.0. BMP unremarkable. Lactic acid normal findings at 1.4. Magnesium slightly low at 1.7. Liver profile unremarkable. Troponin negative at less than 0.012 and proBNP of 305. Urinalysis was negative for blood, proteins, ketones, or infection. Ultrasound of the abdomen was completed showing no evidence of cholelithiasis or cholecystitis, no evidence of hydronephrosis, and reporting a hyperechoic area adjacent to the region of the left lobe of the liver posteriorly measuring 4.2 x 4.6 x 4.4 cm in diameter of unclear etiology recommending computed tomography scan for further evaluation. CT abdomen and pelvis with contrast was completed showing extensive metastatic disease/malignancy throughout the abdomen and pelvis and pleural-based metastasis in the right lung base. CT lumbar spine showing no acute osseous abnormalities seen throughout the lumbar spine and no suspicious bony lesions. Patient was admitted under our services with consultation to hematology/oncology secondary to concerns of metastatic process. Order also placed for consult cardiology for evaluation and recommendations on holding anticoagulation with mechanical valve for needed biopsies and surgical procedures. Per previous documentation in chart on 11/13/[address] of abdomen done at [facility] on 11/11/22 which revealed cholelithiasis without evidence of cholecystitis and a hiatal hernia, but reported to be negative for acute intra-abdominal process. Physical exam: Patient seen and fully evaluated at bedside this morning. He reports continued intractable lower back pain radiating down left leg as well as pain in epigastric and right upper quadrant region. Vital signs reviewed and stable. General: Nontoxic, no distress and appears stated age. Derm: Skin warm and dry, normal coloration for ethnicity. Head: Atraumatic, normocephalic and symmetric. Eyes: EOMs intact, no lid lag, and anicteric sclera Mouth: no lip lesions, mucus membranes moist Cardiovascular: regular rate and rhythm with normal S1S2, systolic murmur, positive posterior tibial pulses bilaterally, and cap refill < 2 seconds. Enlarged Supraclavicular lymph nodes palpated Lungs: Respirations even, regular, and unlabored on room air. Lungs CTA bilaterally, no rhonchi, no rales, no wheezing, and no accessory muscle usage. Abdominal: soft, tenderness reported to the epigastric and right upper quadrant region upon palpation. Ext: RNo gross muscle atrophy, no edema, no contractures. Patient with large firm mass/enlarged lymph node right axillary region Neuro: Speech clear, face symmetrical and CN II-XII grossly intact with no noted focal neuro deficits Psych: Alert and oriented to person, place, time, and situation. Appropriate and pleasant affect. Assessment and Plan of Care: Abdominal pain, abnormal CT findings concerning for extensive metastatic process throughout abdomen, pelvis, and right lung base (most recent CT completed Melena Microcytic anemia Aortic Mechanical valve replacement History of chronic atrial fibrillation with a slowed ventricular response status post ablation 04/16/23, now maintaining sinus mechanism HFrEF with EF of 35-40% History of thoracic aortic aneurysm status post repair Hypertension Hyperlipidemia Mild nonobstructive coronary artery disease -CT abdomen and pelvis with contrast was completed showing extensive metastatic disease/malignancy throughout the abdomen and pelvis and pleural-based metastasis in the right lung base. -Oncology following, discussed plan with oncology DATA CENTER OPERATOR. Placed order for IR to perform right axillary mass biopsy today. -Gastroenterology following, planning for EGD and colonoscopy on Saturday04/23/23. Heparin will need to be stopped 4 hours prior to scheduled procedure per recommendations of software deployment engineer. -Cardiology following and discussed plan of care with cardiac DATA CENTER OPERATOR regarding management of holding anticoagulation for patient's mechanical valve with upcoming scheduled EGD/colonoscopy -Symptomatic care and pain management. Patient with persistent intractable pain, Dilaudid was increased to 1 mg every 2 hours as needed for pain. -CBC every 6 hours to monitor hemoglobin closely secondary to melena and need for anticoagulation. -PTT every 6 hours, patient with goal therapeutic PTT of 46.6 this morning (goal therapeutic range of 44-79 seconds) -Patient to remain on continuous Telemetry monitoring -Protonix 40 mg IVP twice daily -Clear liquid diet pending further recommendations from gastroenterology and oncology -Continue home medication regimen with amlodipine 5 mg twice daily, Lasix 40 mg daily, and metoprolol 12.5 mg twice daily. Aspirin 81 mg held at this time. Data and imaging reviewed: -Completed and reviewed. CBC showing stable normocytic anemia with hemoglobin of 11.1. Coagulation profile showing therapeutic PTT of 46.6 on heparin infusion. BMP unremarkable. Magnesium was slightly low 1.6. Liver profile unremarkable. Vital signs completed and reviewed. Blood pressure 135/72, heart rate 83, respiratory rate 18, temp 97.6F and SpO2 of 95% on room air. Update, initial documentation of CAD status post CABG and mitral valve replacement as reported by pt initially was inaccurate. Updated by software deployment engineer that pt did not have a bypass but aneurysm repain and his mechanical valve is his aortic valve not mitral as previously documented. CODE STATUS: Full code DVT prophylaxis: heparin infusion and will bridge back to Coumadin once patient is cleared by hematology and gastroenterology to resume. Anticipated discharge date: Clinical course to determine Anticipated discharge place: Clinical course to determine Patient was seen independently by Nurse Practitioner. This document was prepared using [employer] dictation software. Please allow for errors in program counselor while rare they do occur. I reviewed the documentation as provided by the GREG above, who is the original author of this note. I agree with the documented assessment and plan, with the following changes: none Objective - Vital Signs Vital signs: Vital Signs Temp 97.6 F 04/19/23 07:37 Pulse 83 04/19/23 07:37 Resp 18 04/19/23 07:37 BP 135/72 04/19/23 07:37 Pulse Ox 95 04/19/23 07:37 FiO2 Intake & Output 04/18/23 04/19/23 04/19/23 18:59 06:59 18:59 Intake Total 473.558 Output Total 1700 Balance -1226.442 Weight 78.925 kg Intake: Intake, IV Titration 73.558 Amount Heparin Sod,Pork in 0.45% 73.558 NaCl 25,000 unit In 0.45 % NaCl 1 250ml.bag @ 12 UNITS/KG/HR 9.471 mls/hr IV .Q24H [facility] Rx#: [id number] Oral 400 Output: Urine 1700 Other: Voiding Method Toilet - Labs CBC & Chem 7: 04/19/23 12:23 04/19/23 07:11 Labs: Abnormal Lab Results - Last 24 Hours (Table) 04/18/23 04/18/23 04/18/23 Range/Units 08:27 08:27 08:27 Hgb 11.9 L (13.0-17.5) gm/dL Hct 34.3 L (39.0-53.0) % MCV 77.1 L (80.0-100.0) fL RDW 15.6 H (11.5-15.5) % Lymphocytes # 0.8 L (1.0-4.8) k/uL PT 29.7 H (10.0-12.5) sec INR 3.0 H (<1.2) APTT 35.1 H (22.0-30.0) sec BUN 8 L (9-20) mg/dL Creatinine 0.59 L (0.66-1.25) mg/dL Glucose 111 H (74-99) mg/dL Iron (65-175) UG/DL % Saturation (15.00-50.00) Lactate Dehydrogenase (120-246) U/L Carcinoembryonic Ag (0.0-4.9) ng/mL Vitamin B12 (200.0-944.0) pg/mL 04/18/23 04/18/23 04/18/23 Range/Units 08:27 08:27 18:15 Hgb (13.0-17.5) gm/dL Hct (39.0-53.0) % MCV (80.0-100.0) fL RDW (11.5-15.5) % Lymphocytes # (1.0-4.8) k/uL PT 23.1 H (10.0-12.5) sec INR 2.3 H (<1.2) APTT 32.2 H (22.0-30.0) sec BUN (9-20) mg/dL Creatinine (0.66-1.25) mg/dL Glucose (74-99) mg/dL Iron 37 L (65-175) UG/DL % Saturation 8.81 L (15.00-50.00) Lactate Dehydrogenase 429 H (120-246) U/L Carcinoembryonic Ag 28.0 H (0.0-4.9) ng/mL Vitamin B12 2749.0 H (200.0-944.0) pg/mL 04/19/23 04/19/23 Range/Units 00:07 07:11 Hgb (13.0-17.5) gm/dL Hct (39.0-53.0) % MCV (80.0-100.0) fL RDW (11.5-15.5) % Lymphocytes # (1.0-4.8) k/uL PT 20.9 H 19.1 H (10.0-12.5) sec INR 2.1 H 1.9 H (<1.2) APTT 39.9 H 46.6 H (22.0-30.0) sec BUN (9-20) mg/dL Creatinine (0.66-1.25) mg/dL Glucose (74-99) mg/dL Iron (65-175) UG/DL % Saturation (15.00-50.00) Lactate Dehydrogenase (120-246) U/L Carcinoembryonic Ag (0.0-4.9) ng/mL Vitamin B12 (200.0-944.0) pg/mL
[2023-04-19 18:15] LABS: INR 1.8 (<1.2); Partial Thromboplastin Time 51.6 sec (22.0-30.0); Prothrombin Time 17.9 sec (10.0-12.5)
[2023-04-19 18:26] LABS: Basophils % (A) 1 %; Eosinophils # (A) 0.3 k/uL (0-0.7); Eosinophils % (A) 5 %; HCT 33.9 % (39.0-53.0); HGB 11.4 gm/dL (13.0-17.5); Lymphocytes # (A) 0.9 k/uL (1.0-4.8); Lymphocytes % (A) 16 %; MCH 26.5 pg (25.0-35.0); MCHC 33.6 g/dL (31.0-37.0); MCV 78.9 fL (80.0-100.0); Mean Platelet Volume 8.4; Monocytes # (A) 0.4 k/uL (0-1.0); Monocytes % (A) 7 %; Neutrophils # (A) 4.1 k/uL (1.3-7.7); Neutrophils % (A) 69 %; Platelet Count 287 k/uL (150-450); RDW 15.7 % (11.5-15.5); WBC 5.9 k/uL (3.8-10.6)
[2023-04-19] MEDS: HEPARIN SOD,PORK IN 0.45% NACL 25,000 UNIT in 0.45% NACL 1 250ML.BAG IV SCH (20:38)
[2023-04-20 00:14] LABS: Basophils # (A) 0.1 k/uL (0-0.2); Basophils % (A) 1 %; Eosinophils # (A) 0.4 k/uL (0-0.7); Eosinophils % (A) 5 %; HCT 34.1 % (39.0-53.0); HGB 11.3 gm/dL (13.0-17.5); Lymphocytes # (A) 1.3 k/uL (1.0-4.8); Lymphocytes % (A) 15 %; MCH 26.2 pg (25.0-35.0); MCHC 33.1 g/dL (31.0-37.0); MCV 79.2 fL (80.0-100.0); Monocytes # (A) 0.6 k/uL (0-1.0); Monocytes % (A) 7 %; Neutrophils # (A) 5.7 k/uL (1.3-7.7); Neutrophils % (A) 71 %; Platelet Count 343 k/uL (150-450); RDW 15.7 % (11.5-15.5); WBC 8.1 k/uL (3.8-10.6)
[2023-04-20 00:19] LABS: Partial Thromboplastin Time 47.1 sec (22.0-30.0)
[2023-04-20] MEDS: HYDROmorphone 1 MG/ML 1 ML SYRINGE IVP PRN ×11 (01:17→23:19)
[2023-04-20 06:58] LABS: INR 1.5 (<1.2); Prothrombin Time 15.6 sec (10.0-12.5)
[2023-04-20 07:39] LABS: INR 1.6 (<1.2); Prothrombin Time 16.2 sec (10.0-12.5)
[2023-04-20] MEDS: FUROSEMIDE 40 MG TAB PO SCH (07:58)
[2023-04-20] MEDS: amLODIPine 5 MG TAB PO SCH ×2 (07:58→20:41)
[2023-04-20] MEDS: METOPROLOL TARTRATE 12.5 MG TAB PO SCH ×2 (07:58→20:41)
[2023-04-20] MEDS: MULTIVITAMINS, THERA 1 EACH TAB PO SCH (07:58)
[2023-04-20] MEDS: PANTOPRAZOLE 40 MG/10 ML VIAL IV SCH ×2 (07:58→20:48)
[2023-04-20] MEDS: SODIUM FERRIC GLUCONAT-SUCROSE 125 MG in SODIUM CHLORIDE 0.9% 100 ML IVPB SCH (08:12)
[2023-04-20 09:15] LABS: Basophils # (A) 0.05 X 10*3/uL (0.00-0.10); Basophils % (A) 0.9 %; Eosinophils % (A) 5.2 %; HCT 32.8 % (39.6-50.0); HGB 10.6 g/dL (13.0-17.0); Lymphocytes # (A) 0.78 X 10*3/uL (0.90-5.00); Lymphocytes % (A) 13.6 %; MCHC 32.3 g/dL (32.0-37.0); MCV 80.6 FL (80.0-97.0); Mean Platelet Volume 10.2 FL (9.5-12.2); Monocytes # (A) 0.56 X 10*3/uL (0.20-1.00); Monocytes % (A) 9.8 %; NRBC Per 100 WBC 0 X 10*3/uL (0.00-0.01); Neutrophils # (A) 4.01 X 10*3/uL (1.80-7.70); Neutrophils % (A) 70.2 %; Platelet Count 303 X 10*3/uL (140-440); RBC 4.07 X 10*6/uL (4.40-5.60); RDW 15.6 % (11.5-14.5); WBC 5.72 X 10*3/uL (4.50-10.00)
[2023-04-20 09:22] LABS: ALT 13 U/L (10-49); AST 19 U/L (14-35); Albumin 3.5 g/dL (3.8-4.9); Albumin/Globulin Ratio 1.75 Ratio (1.60-3.17); Alkaline Phosphatase 94 U/L (41-126); BUN/Creat Ratio 7.86 Ratio (12.00-20.00); Blood Urea Nitrogen 5.5 mg/dL (9.0-27.0); Carbon Dioxide 24.8 mmol/L (21.6-31.8); Chloride 102 mmol/L (96-109); Glucose 102 mg/dL (70-110); Magnesium 1.6 mg/dL (1.5-2.4); Potassium 3.7 mmol/L (3.5-5.5); Sodium 136 mmol/L (135-145); Total Bilirubin 1.1 mg/dL (0.3-1.2); Total Protein 5.5 g/dL (6.2-8.2)
[2023-04-20] MEDS: BACLOFEN 10 MG TAB PO PRN ×2 (10:36→18:25)
[2023-04-20 12:32] LABS: Basophils # (A) 0.1 k/uL (0-0.2); Basophils % (A) 1 %; Eosinophils # (A) 0.4 k/uL (0-0.7); Eosinophils % (A) 5 %; HGB 11.5 gm/dL (13.0-17.5); Lymphocytes % (A) 14 %; MCH 26.9 pg (25.0-35.0); MCV 79.1 fL (80.0-100.0); Mean Platelet Volume 7.7; Monocytes # (A) 0.6 k/uL (0-1.0); Monocytes % (A) 8 %; Neutrophils % (A) 71 %; Platelet Count 326 k/uL (150-450); RDW 15.7 % (11.5-15.5); WBC 7.1 k/uL (3.8-10.6)
[2023-04-20 12:45] LABS: INR 1.5 (<1.2); Partial Thromboplastin Time 59.9 sec (22.0-30.0); Prothrombin Time 15.6 sec (10.0-12.5)
--- NOTE | 2023-04-20 15:26 | P.PN ---
Subjective Progress Note Date: 04/20/23 Principal diagnosis: Abdominal pain -No acute events overnight -Noted to have used Dilaudid 1 mg IV every 2 hours 11 times -Notes having improved abdominal pain with worsening sciatica pain in the left back -Denies any other new signs or symptoms Objective - Vital Signs Vital signs: Vital Signs Temp 98.0 F 04/20/23 14:21 Pulse 98 04/20/23 14:21 Resp 18 04/20/23 14:21 BP 117/63 04/20/23 14:21 Pulse Ox 93 L 04/20/23 14:21 FiO2 Intake & Output 04/19/23 04/20/23 04/20/23 18:59 06:59 18:59 Intake Total 176.442 200 Output Total 900 1000 5 Balance -723.558 -800 -2074 Weight 78.925 kg Intake: Intake, IV Titration 176.442 Amount Heparin Sod,Pork in 0.45% 176.442 NaCl 25,000 unit In 0.45 % NaCl 1 250ml.bag @ 12 UNITS/KG/HR 9.471 mls/hr IV .Q24H [facility] Rx#: [id number] Oral 200 Output: Urine 900 1000 2074 Other: Voiding Method Toilet Toilet Toilet # Voids 5 3 - Constitutional General appearance: Present: average body habitus, no acute distress - EENT Eyes: Present: EOMI - Respiratory Respiratory: bilateral: wheezing (Expiratory wheezing bilaterally) - Cardiovascular Rhythm: regular - Gastrointestinal General gastrointestinal: Present: distended, normal bowel sounds, soft. Absent: tenderness - Integumentary Integumentary: Absent: rash - Neurologic Neurologic: Present: CNII-XII intact. Absent: focal deficits - Labs CBC & Chem 7: 04/20/23 12:02 04/20/23 06:14 Labs: Abnormal Lab Results - Last 24 Hours (Table) 04/19/23 04/19/23 04/19/23 Range/Units 12: 17:47 17:47 RBC (4.40-5.60) X 10*6/uL Hgb 11.5 L 11.4 L (13.0-17.0) g/dL Hct 35.6 L 33.9 L (39.6-50.0) % MCV 78.9 L (80.0-100.0) fL MCH 26.1 L (27.0-32.0) pg RDW 15.7 H 15.7 H (11.5-14.5) % Lymphocytes # 0.9 L (1.0-4.8) k/uL PT 17.9 H (10.0-12.5) sec INR 1.8 H (<1.2) APTT 51.6 H (22.0-30.0) sec BUN (9.0-27.0) mg/dL BUN/Creatinine Ratio (12.00-20.00) Ratio Total Protein (6.2-8.2) g/dL Albumin (3.8-4.9) g/dL 04/19/23 04/19/23 04/20/23 Range/Units 23:18 23:18 06:14 RBC 4.07 L (4.40-5.60) X 10*6/uL Hgb 11.3 L 10.6 L (13.0-17.0) g/dL Hct 34.1 L 32.8 L (39.6-50.0) % MCV 79.2 L (80.0-100.0) fL MCH 26.0 L (27.0-32.0) pg RDW 15.7 H 15.6 H (11.5-14.5) % Lymphocytes # 0.78 L (1.0-4.8) k/uL PT 16.2 H (10.0-12.5) sec INR 1.6 H (<1.2) APTT 47.1 H (22.0-30.0) sec BUN (9.0-27.0) mg/dL BUN/Creatinine Ratio (12.00-20.00) Ratio Total Protein (6.2-8.2) g/dL Albumin (3.8-4.9) g/dL 04/20/23 04/20/23 04/20/23 Range/Units 06:14 06:14 06:14 RBC (4.40-5.60) X 10*6/uL Hgb (13.0-17.0) g/dL Hct (39.6-50.0) % MCV (80.0-100.0) fL MCH (27.0-32.0) pg RDW (11.5-14.5) % Lymphocytes # (1.0-4.8) k/uL PT 15.6 H (10.0-12.5) sec INR 1.5 H (<1.2) APTT 48.0 H 46.1 H (22.0-30.0) sec BUN 5.5 L (9.0-27.0) mg/dL BUN/Creatinine Ratio 7.86 L (12.00-20.00) Ratio Total Protein 5.5 L (6.2-8.2) g/dL Albumin 3.5 L (3.8-4.9) g/dL 04/20/23 04/20/23 Range/Units 12:02 12:02 RBC (4.40-5.60) X 10*6/uL Hgb 11.5 L (13.0-17.0) g/dL Hct 34.0 L (39.6-50.0) % MCV 79.1 L (80.0-100.0) fL MCH (27.0-32.0) pg RDW 15.7 H (11.5-14.5) % Lymphocytes # (1.0-4.8) k/uL PT 15.6 H (10.0-12.5) sec INR 1.5 H (<1.2) APTT 59.9 H (22.0-30.0) sec BUN (9.0-27.0) mg/dL BUN/Creatinine Ratio (12.00-20.00) Ratio Total Protein (6.2-8.2) g/dL Albumin (3.8-4.9) g/dL Assessment and Plan (1) Abdominal pain Current Visit: Yes Status: Acute Priority: High Code(s): R10.9 - UNSPECIFIED ABDOMINAL PAIN SNOMED Code(s): 08109053 (2) Cancer, metastatic Current Visit: Yes Status: Acute Code(s): C79.9 - SECONDARY MALIGNANT NEOPLASM OF UNSPECIFIED SITE SNOMED Code(s): 204554754 (3) Microcytic hypochromic anemia Current Visit: Yes Status: Acute Priority: High Code(s): D50.9 - IRON DEFICIENCY ANEMIA, UNSPECIFIED SNOMED Code(s): 80590440 (4) Afib Current Visit: Yes Status: Chronic Priority: Medium Code(s): I48.91 - UNSPECIFIED ATRIAL FIBRILLATION SNOMED Code(s): 54489031 Plan: #Abdominal pain -Noted to have been present for at least 1 to 2 months prior to initial presentation -This was progressive in nature and eventually became more painful than sciatica of the left leg, which was the main source of pain -He did note melanotic stool over the past week -He has had fatigue with night sweats -Physical exam was significant for right cervical and bilateral supraclavicular lymphadenopathy in addition to palpable soft tissue mass just posterior to the lower portion of the right axilla -Exam was also notable for palpable lump to lesion in the left lower quadrant -CT abdomen/pelvis on admission was notable for pleural-based lesion in the right lower lobe, bilateral adrenal gland nodules, 2 left kidney nodules, soft tissue mass near the spleen, retroperitoneal lymphadenopathy, and abdominal wall nodules in the left lower quadrant and right lower quadrant suspicious for ma lignancy -From a lung malignancy standpoint, we discussed pursuing biopsy to help confirm diagnosis of malignancy -At this point, it is unclear as to what the primary malignancy would be -LDH elevated at 429. CEA mildly elevated at 28 -Biopsy of the soft tissue mass posterior to the right axilla was performed on 04/19/2023 and is currently pending -His abdominal pain is currently improved #Sciatica -Noted to be in the left lower back extending down the left leg causing significant discomfort -Currently, he notes this is the main source of his pain as opposed to the abdominal pain present on admission -He has received Dilaudid 1 mg IV every 2 hours [id number] and noted improvement in pain, but quick offset -We did discuss potentially having epidural steroid injection -Baclofen 5 mg every 8 hours as needed was added -Fentanyl 25 mcg transdermal every 72 hours was also added today -During his admission, he may benefit from interventional pain management service with regards to his sciatica pain #Microcytic hypochromic anemia -He has reported melanotic stool over the past week -Hemoglobin 11.4 on admission with MCV 77.4 -There is concern for iron deficiency secondary to GI blood loss -Iron studies consistent with SHARON. IV iron started . No vitamin B12 or folate deficiency noted -GI consulted, plan for endoscopic evaluation 04/23 #Atrial fibrillation, CAD -Underwent MARY JO with cardioversion on 04/16/2023 -Holding warfarin and aspirin and continuing with heparin drip -Continue remainder of cardiac regimen per primary team Cher Nicole MD
--- NOTE | 2023-04-20 16:34 | P.PN ---
Subjective Progress Note Date: 04/20/23 63-year-old male with a past medical history of chronic atrial fibrillation status post cardiac ablation 04/16/23, thoracic aortic aneurysm status post repair, aortic valve regurgitation status post mechanical valve replacement on Coumadin, hypertension, hyperlipidemia, and chronic lower back pain. He presented to the emergency department on 04/18/23 secondary to reports of epigastric/abdominal pain, dark black tarry stools, and persistent intractable lower back pain with sciatica down his left leg. Upon arrival to the ER patient underwent full evaluation. Vital signs upon arrival show blood pressure 139/91, heart rate 92, respiratory rate 18, temp 98.7F, SpO2 of 99% on room air. EKG completed showing normal sinus rhythm at 84 bpm Labs completed and reviewed. CBC showing normocytic anemia with hemoglobin of 11.9. Coagulation profile showing therapeutic INR 3.0. BMP unremarkable. Lactic acid normal findings at 1.4. Magnesium slightly low at 1.7. Liver profile unremarkable. Troponin negative at less than 0.012 and proBNP of 305. Urinalysis was negative for blood, proteins, ketones, or infection. Ultrasound of the abdomen was completed showing no evidence of cholelithiasis or cholecystitis, no evidence of hydronephrosis, and reporting a hyperechoic area adjacent to the region of the left lobe of the liver posteriorly measuring 4.2 x 4.6 x 4.4 cm in diameter of unclear etiology recommending computed tomography scan for further evaluation. CT abdomen and pelvis with contrast was completed showing extensive metastatic disease/malignancy throughout the abdomen and pelvis and pleural-based metastasis in the right lung base. CT lumbar spine showing no acute osseous abn ormalities seen throughout the lumbar spine and no suspicious bony lesions. Patient was admitted under our services with consultation to hematology/oncology secondary to concerns of metastatic process. Order also placed for consult cardiology for evaluation and recommendations on holding anticoagulation with mechanical valve for needed biopsies and surgical procedures. Plans for EGD and colonoscopy on 04/23. 04/20 Patient was seen and examined. He reports sciatic pain and generalized abdominal pain. Has been getting Dilaudid 1mg IV Q2H around the clock. CBC Hg 11.5. INR 1.5. CMP BUN 5.5, alb 3.5. General: non toxic, no distress, appears at stated age Derm: warm, dry Head: atraumatic, normocephalic, symmetric Eyes: EOMI, no lid lag, anicteric sclera Mouth: no lip lesion, mucus membranes moist Cardiovascular: S1S2 reg, no murmur Lungs: CTA bilateral, no rhonchi, no rales , no accessory muscle use Abdominal: soft, nontender to palpation, no guarding, no appreciable organomegaly Ext: no gross muscle atrophy, no edema, no contractures Neuro: no FND Psych: Alert, oriented, appropriate affect Based on my assessment of this patient, this patient meets a high complexity level of care. Patient has an acute diagnosis of metastatic CA that poses a threat to life or bodily function. Abdominal pain, abnormal CT findings concerning for extensive metastatic process throughout abdomen, pelvis, and right lung base: Oncology on board. Started Fentanyl 12 mcg/hr for better pain control. Dilaudid 1mg IV Q2H PRN. Melena: Plans for EGD and C-scope on 04/23. Protonix 40 mg IV BID. Microcytic anemia: Transfuse if Hg < 7. Ferric gluconate 125 mg IV QD /. Aortic Mechanical valve replacement: Continue heparin drip (goal therapeutic range of 44-79 seconds) History of chronic atrial fibrillation with a slowed ventricular response status post ablation 04/16/23, now maintaining sinus mechanism: Metoprolol 12.5 mg PO BID. HFrEF with EF of 35-40% History of thoracic aortic aneurysm status post repair Hypertension: Amlodipine 5 mg PO BID. Hyperlipidemia Mild nonobstructive coronary artery disease CODE STATUS: FULL CODE DVT Prophylaxis: GI Prophylaxis: Protonix. Designated medical POA if patient is not able to make medical decisions for themselves: I have reviewed the following tax credit leasing consultant notes: Oncology note. I have reviewed the results of the following tests: CBC, CMP, Coag panel I have ordered the following tests: CBC I have discussed the care of this patient with the following independent historian: I have independently interpreted the following test below: I have discussed the management of this patient with the following physician: Objective - Vital Signs Vital signs: Vital Signs Temp 98.0 F 04/20/23 14:21 Pulse 98 04/20/23 14:21 Resp 18 04/20/23 14:21 BP 117/63 04/20/23 14:21 Pulse Ox 93 L 04/20/23 14:21 FiO2 Intake & Output 04/19/23 04/20/23 04/20/23 18:59 06:59 18:59 Intake Total 176.442 200 Output Total 900 1000 2074 Balance -723.558 -053 -2074 Weight 78.925 kg Intake: Intake, IV Titration 176.442 Amount Heparin Sod,Pork in 0.45% 176.442 NaCl 25,000 unit In 0.45 % NaCl 1 250ml.bag @ 12 UNITS/KG/HR 9.471 mls/hr IV .Q24H [facility] Rx#: [id number] Oral 200 Output: Urine 900 1000 2074 Other: Voiding Method Toilet Toilet Toilet # Voids 5 3 - Labs CBC & Chem 7: 04/20/23 12:02 04/20/23 06:14 Labs: Abnormal Lab Results - Last 24 Hours (Table) 04/18/23 04/19/23 04/19/23 Range/Units 08:27 17:47 17:47 RBC (4.40-5.60) X 10*6/uL Hgb 11.4 L (13.0-17.5) gm/dL Hct 33.9 L (39.0-53.0) % MCV 78.9 L (80.0-100.0) fL MCH (27.0-32.0) pg RDW 15.7 H (11.5-15.5) % Lymphocytes # 0.9 L (1.0-4.8) k/uL PT 17.9 H (10.0-12.5) sec INR 1.8 H (<1.2) APTT 51.6 H (22.0-30.0) sec BUN (9.0-27.0) mg/dL BUN/Creatinine Ratio (12.00-20.00) Ratio Total Protein (6.2-8.2) g/dL Albumin (3.8-4.9) g/dL Methylmalonic Acid 0.62 H (<0.40) umol/L 04/19/23 04/19/23 04/20/23 Range/Units 23:18 23:18 06:14 RBC 4.07 L (4.40-5.60) X 10*6/uL Hgb 11.3 L 10.6 L (13.0-17.5) gm/dL Hct 34.1 L 32.8 L (39.0-53.0) % MCV 79.2 L (80.0-100.0) fL MCH 26.0 L (27.0-32.0) pg RDW 15.7 H 15.6 H (11.5-15.5) % Lymphocytes # 0.78 L (1.0-4.8) k/uL PT 16.2 H (10.0-12.5) sec INR 1.6 H (<1.2) APTT 47.1 H (22.0-30.0) sec BUN (9.0-27.0) mg/dL BUN/Creatinine Ratio (12.00-20.00) Ratio Total Protein (6.2-8.2) g/dL Albumin (3.8-4.9) g/dL Methylmalonic Acid (<0.40) umol/L 04/20/23 04/20/23 04/20/23 Range/Units 06:14 06:14 06:14 RBC (4.40-5.60) X 10*6/uL Hgb (13.0-17.5) gm/dL Hct (39.0-53.0) % MCV (80.0-100.0) fL MCH (27.0-32.0) pg RDW (11.5-15.5) % Lymphocytes # (1.0-4.8) k/uL PT 15.6 H (10.0-12.5) sec INR 1.5 H (<1.2) APTT 48.0 H 46.1 H (22.0-30.0) sec BUN 5.5 L (9.0-27.0) mg/dL BUN/Creatinine Ratio 7.86 L (12.00-20.00) Ratio Total Protein 5.5 L (6.2-8.2) g/dL Albumin 3.5 L (3.8-4.9) g/dL Methylmalonic Acid (<0.40) umol/L 04/20/23 04/20/23 Range/Units 12:02 12:02 RBC (4.40-5.60) X 10*6/uL Hgb 11.5 L (13.0-17.5) gm/dL Hct 34.0 L (39.0-53.0) % MCV 79.1 L (80.0-100.0) fL MCH (27.0-32.0) pg RDW 15.7 H (11.5-15.5) % Lymphocytes # (1.0-4.8) k/uL PT 15.6 H (10.0-12.5) sec INR 1.5 H (<1.2) APTT 59.9 H (22.0-30.0) sec BUN (9.0-27.0) mg/dL BUN/Creatinine Ratio (12.00-20.00) Ratio Total Protein (6.2-8.2) g/dL Albumin (3.8-4.9) g/dL Methylmalonic Acid (<0.40) umol/L
[2023-04-20 18:43] LABS: Basophils % (A) 1 %; Eosinophils # (A) 0.3 k/uL (0-0.7); Eosinophils % (A) 5 %; HGB 11.1 gm/dL (13.0-17.5); Lymphocytes # (A) 0.8 k/uL (1.0-4.8); Lymphocytes % (A) 13 %; MCH 26.7 pg (25.0-35.0); MCHC 33.6 g/dL (31.0-37.0); MCV 79.3 fL (80.0-100.0); Mean Platelet Volume 7.3; Monocytes # (A) 0.4 k/uL (0-1.0); Monocytes % (A) 6 %; Neutrophils # (A) 4.6 k/uL (1.3-7.7); Neutrophils % (A) 74 %; Platelet Count 315 k/uL (150-450); RBC 4.17 m/uL (4.30-5.90); RDW 15.7 % (11.5-15.5); WBC 6.3 k/uL (3.8-10.6)
[2023-04-20] MEDS: HEPARIN SOD,PORK IN 0.45% NACL 25,000 UNIT in 0.45% NACL 1 250ML.BAG IV SCH (20:49)
[2023-04-21 01:23] LABS: Basophils % (A) 1 %; Eosinophils # (A) 0.2 k/uL (0-0.7); Eosinophils % (A) 4 %; HCT 31.1 % (39.0-53.0); HGB 10.5 gm/dL (13.0-17.5); Lymphocytes # (A) 0.7 k/uL (1.0-4.8); Lymphocytes % (A) 11 %; MCH 26.9 pg (25.0-35.0); MCHC 33.8 g/dL (31.0-37.0); MCV 79.6 fL (80.0-100.0); Mean Platelet Volume 7.5; Monocytes # (A) 0.5 k/uL (0-1.0); Monocytes % (A) 7 %; Neutrophils # (A) 4.6 k/uL (1.3-7.7); Neutrophils % (A) 75 %; Platelet Count 294 k/uL (150-450); RBC 3.91 m/uL (4.30-5.90); RDW 15.9 % (11.5-15.5); WBC 6.1 k/uL (3.8-10.6)
[2023-04-21] MEDS: HYDROmorphone 1 MG/ML 1 ML SYRINGE IVP PRN ×9 (01:36→23:00)
[2023-04-21] MEDS: HEPARIN SOD,PORK IN 0.45% NACL 25,000 UNIT in 0.45% NACL 1 250ML.BAG IV SCH (03:01)
[2023-04-21] MEDS: ONDANSETRON 4 MG/2 ML VIAL IVP PRN ×2 (05:44→20:22)
[2023-04-21] MEDS: METOPROLOL TARTRATE 12.5 MG TAB PO SCH ×2 (05:57→20:55)
[2023-04-21] MEDS: FUROSEMIDE 40 MG TAB PO SCH (05:57)
[2023-04-21] MEDS: amLODIPine 5 MG TAB PO SCH ×2 (05:58→20:55)
[2023-04-21] MEDS: MULTIVITAMINS, THERA 1 EACH TAB PO SCH (08:23)
[2023-04-21] MEDS: PANTOPRAZOLE 40 MG/10 ML VIAL IV SCH ×2 (08:23→20:22)
[2023-04-21] MEDS: BACLOFEN 10 MG TAB PO PRN (08:23)
[2023-04-21] MEDS: SODIUM FERRIC GLUCONAT-SUCROSE 125 MG in SODIUM CHLORIDE 0.9% 100 ML IVPB SCH (08:23)
--- NOTE | 2023-04-21 11:21 | P.PN ---
Subjective Progress Note Date: 04/21/23 63-year-old male with a past medical history of chronic atrial fibrillation status post cardiac ablation 04/16/23, thoracic aortic aneurysm status post repair, aortic valve regurgitation status post mechanical valve replacement on Coumadin, hypertension, hyperlipidemia, and chronic lower back pain. He presented to the emergency department on 04/18/23 secondary to reports of epigastric/abdominal pain, dark black tarry stools, and persistent intractable lower back pain with sciatica down his left leg. Upon arrival to the ER patient underwent full evaluation. Vital signs upon arrival show blood pressure 139/91, heart rate 92, respiratory rate 18, temp 98.7F, SpO2 of 99% on room air. EKG completed showing normal sinus rhythm at 84 bpm Labs completed and reviewed. CBC showing normocytic anemia with hemoglobin of 11.9. Coagulation profile showing therapeutic INR 3.0. BMP unremarkable. Lactic acid normal findings at 1.4. Magnesium slightly low at 1.7. Liver profile unremarkable. Troponin negative at less than 0.012 and proBNP of 305. Urinalysis was negative for blood, proteins, ketones, or infection. Ultrasound of the abdomen was completed showing no evidence of cholelithiasis or cholecystitis, no evidence of hydronephrosis, and reporting a hyperechoic area adjacent to the region of the left lobe of the liver posteriorly measuring 4.2 x 4.6 x 4.4 cm in diameter of unclear etiology recommending computed tomography scan for further evaluation. CT abdomen and pelvis with contrast was completed showing extensive metastatic disease/malignancy throughout the abdomen and pelvis and pleural-based metastasis in the right lung base. CT lumbar spine showing no acute osseous abn ormalities seen throughout the lumbar spine and no suspicious bony lesions. Patient was admitted under our services with consultation to hematology/oncology secondary to concerns of metastatic process. Order also placed for consult cardiology for evaluation and recommendations on holding anticoagulation with mechanical valve for needed biopsies and surgical procedures. Plans for EGD and colonoscopy on 04/23. 04/20 Patient was seen and examined. He reports sciatic pain and generalized abdominal pain. Has been getting Dilaudid 1mg IV Q2H around the clock. CBC Hg 11.5. INR 1.5. CMP BUN 5.5, alb 3.5. 04/21 Patient was seen and examined. Started on Fentanyl patch yesterday. Still reports sciatic pain and generalized abdominal pain requiring Dilaudid around the clock. CBC Hg 10.5 Hct 31.1 MCV 79.6. General: non toxic, no distress, appears at stated age Derm: warm, dry Head: atraumatic, normocephalic, symmetric Eyes: EOMI, no lid lag, anicteric sclera Mouth: no lip lesion, mucus membranes moist Cardiovascular: S1S2 reg, no murmur Lungs: CTA bilateral, no rhonchi, no rales , no accessory muscle use Abdominal: soft, nontender to palpation, no guarding, no appreciable organomegaly Ext: no gross muscle atrophy, no edema, no contractures Neuro: no FND Psych: Alert, oriented, appropriate affect Based on my assessment of this patient, this patient meets a high complexity level of care. Patient has an acute diagnosis of metastatic CA that poses a threat to life or bodily function. Abdominal pain, abnormal CT findings concerning for extensive metastatic process throughout abdomen, pelvis, and right lung base: Oncology on board. Fentanyl 12 mcg/hr for better pain control. Dilaudid 1mg IV Q2H PRN. Melena: Plans for EGD and C-scope on 04/23. Protonix 40 mg IV BID. Microcytic anemia: Transfuse if Hg < 7. Ferric gluconate 125 mg IV QD 06/29. Aortic Mechanical valve replacement: Continue heparin drip (goal therapeutic range of 44-79 seconds) History of chronic atrial fibrillation with a slowed ventricular response status post ablation 04/16/23, now maintaining sinus mechanism: Metoprolol 12.5 mg PO BID. HFrEF with EF of 35-40% History of thoracic aortic aneurysm status post repair Hypertension: Amlodipine 5 mg PO BID. Hyperlipidemia Mild nonobstructive coronary artery disease CODE STATUS: FULL CODE DVT Prophylaxis: GI Prophylaxis: Protonix. Designated medical POA if patient is not able to make medical decisions for themselves: I have reviewed the following collection systems consultant notes: Oncology note. I have reviewed the results of the following tests: CBC I have ordered the following tests: Pending: BMP, Coag panel CBC, Coag panel, BMP. I have discussed the care of this patient with the following independent historian: I have independently interpreted the following test below: I have discussed the management of this patient with the following physician: Objective - Vital Signs Vital signs: Vital Signs Temp 98.3 F 04/21/23 07:37 Pulse 99 04/21/23 07:37 Resp 18 04/21/23 07:37 BP 134/76 04/21/23 07:37 Pulse Ox 95 04/21/23 08:42 FiO2 Intake & Output 04/20/23 04/21/23 04/21/23 18:59 06:59 18:59 Intake Total 250 Output Total 2074 Balance -1824 Intake: Intake, IV Titration 250 Amount Heparin Sod,Pork in 0.45% 250 NaCl 25,000 unit In 0.45 % NaCl 1 250ml.bag @ 12 UNITS/KG/HR 9.471 mls/hr IV .Q24H [facility] Rx#: [id number] Output: Urine 2074 Other: Voiding Method Toilet Toilet Toilet Urinal # Voids 4 5 - Labs CBC & Chem 7: 04/21/23 01:07 04/20/23 06:14 Labs: Abnormal Lab Results - Last 24 Hours (Table) 04/18/23 04/20/23 04/20/23 Range/Units 08:27 12:02 12:02 RBC (4.30-5.90) m/uL Hgb 11.5 L (13.0-17.5) gm/dL Hct 34.0 L (39.0-53.0) % MCV 79.1 L (80.0-100.0) fL RDW 15.7 H (11.5-15.5) % Lymphocytes # (1.0-4.8) k/uL PT 15.6 H (10.0-12.5) sec INR 1.5 H (<1.2) APTT 59.9 H (22.0-30.0) sec Methylmalonic Acid 0.62 H (<0.40) umol/L 04/20/23 04/21/23 Range/Units 18:03 01:07 RBC 4.17 L 3.91 L (4.30-5.90) m/uL Hgb 11.1 L 10.5 L (13.0-17.5) gm/dL Hct 33.0 L 31.1 L (39.0-53.0) % MCV 79.3 L 79.6 L (80.0-100.0) fL RDW 15.7 H 15.9 H (11.5-15.5) % Lymphocytes # 0.8 L 0.7 L (1.0-4.8) k/uL PT (10.0-12.5) sec INR (<1.2) APTT (22.0-30.0) sec Methylmalonic Acid (<0.40) umol/L
[2023-04-21 11:42] LABS: African American GFR (CKD) >90 (>60 ml/min/1.73 sqM); Anion Gap 10 mmol/L; Blood Urea Nitrogen 6 mg/dL (9-20); Calcium 8.7 mg/dL (8.4-10.2); Carbon Dioxide 25 mmol/L (22-30); Chloride 98 mmol/L (98-107); Glucose 130 mg/dL (74-99); Non-African American GFR(CKD) >90 (>60 ml/min/1.73 sqM); Potassium 3.7 mmol/L (3.5-5.1); Sodium 133 mmol/L (137-145)
--- NOTE | 2023-04-21 13:35 | P.PN ---
Subjective Progress Note Date: 04/21/23 Principal diagnosis: Abdominal pain -No acute events overnight, afebrile -Noted having episode of dry heaving with vomiting after eating this morning, denies any nausea currently -Abdominal pain remained stable with the sciatica pain being most bothersome on ambulation -He does not note significant difference with fentanyl 12 mcg transdermal patch Objective - Vital Signs Vital signs: Vital Signs Temp 98.4 F 04/21/23 11:47 Pulse 97 04/21/23 11:47 Resp 20 04/21/23 11:47 BP 115/73 04/21/23 11:47 Pulse Ox 93 L 04/21/23 11:47 FiO2 Intake & Output 04/20/23 04/21/23 04/21/23 18:59 06:59 18:59 Intake Total 250 Output Total 5 600 Balance -1825 -600 Intake: Intake, IV Titration 250 Amount Heparin Sod,Pork in 0.45% 250 NaCl 25,000 unit In 0.45 % NaCl 1 250ml.bag @ 12 UNITS/KG/HR 9.471 mls/hr IV .Q24H [facility] Rx#: [id number] Output: Urine 2074 600 Other: Voiding Method Toilet Toilet Toilet Urinal # Voids 4 5 2 - Constitutional General appearance: Present: cooperative, no acute distress - EENT Eyes: Present: EOMI - Respiratory Details: Nonlabored breathing - Cardiovascular Details: Warm and well-perfused - Gastrointestinal General gastrointestinal: Present: distended, normal bowel sounds Localized gastrointestinal: tender: diffuse (No rebound or guarding) - Integumentary Integumentary: Absent: rash - Neurologic Neurologic: Present: CNII-XII intact. Absent: focal deficits - Labs CBC & Chem 7: 04/21/23 01:07 04/21/23 10:36 Labs: Abnormal Lab Results - Last 24 Hours (Table) 04/18/23 04/20/23 04/21/23 Range/Units 08:27 18:03 01:07 RBC 4.17 L 3.91 L (4.30-5.90) m/uL Hgb 11.1 L 10.5 L (13.0-17.5) gm/dL Hct 33.0 L 31.1 L (39.0-53.0) % MCV 79.3 L 79.6 L (80.0-100.0) fL RDW 15.7 H 15.9 H (11.5-15.5) % Lymphocytes # 0.8 L 0.7 L (1.0-4.8) k/uL APTT (22.0-30.0) sec Sodium (137-145) mmol/L BUN (9-20) mg/dL Glucose (74-99) mg/dL Methylmalonic Acid 0.62 H (<0.40) umol/L 04/21/23 04/21/23 Range/Units 10:36 10:36 RBC (4.30-5.90) m/uL Hgb (13.0-17.5) gm/dL Hct (39.0-53.0) % MCV (80.0-100.0) fL RDW (11.5-15.5) % Lymphocytes # (1.0-4.8) k/uL APTT 47.1 H (22.0-30.0) sec Sodium 133 L (137-145) mmol/L BUN 6 L (9-20) mg/dL Glucose 130 H (74-99) mg/dL Methylmalonic Acid (<0.40) umol/L Assessment and Plan (1) Abdominal pain Current Visit: Yes Status: Acute Priority: High Code(s): R10.9 - UNSP ECIFIED ABDOMINAL PAIN SNOMED Code(s): 35921909 (2) Cancer, metastatic Current Visit: Yes Status: Acute Code(s): C79.9 - SECONDARY MALIGNANT NEOPLASM OF UNSPECIFIED SITE SNOMED Code(s): 235030775 (3) Microcytic hypochromic anemia Current Visit: Yes Status: Acute Priority: High Code(s): D50.9 - IRON DEFICIENCY ANEMIA, UNSPECIFIED SNOMED Code(s): 81647489 (4) Afib Current Visit: Yes Status: Chronic Priority: Medium Code(s): I48.91 - UNSPECIFIED ATRIAL FIBRILLATION SNOMED Code(s): 85726126 Plan: #Abdominal pain -Noted to have been present for at least 1 to 2 months prior to initial presentation -This was progressive in nature and eventually became more painful than sciatica of the left leg, which was the main source of pain -He did note melanotic stool over the past week -He has had fatigue with night sweats -Physical exam was significant for right cervical and bilateral supraclavicular lymphadenopathy in addition to palpable soft tissue mass just posterior to the lower portion of the right axilla -Exam was also notable for palpable lump to lesion in the left lower quadrant -CT abdomen/pelvis on admission was notable for pleural-based lesion in the right lower lobe, bilateral adrenal gland nodules, 2 left kidney nodules, soft tissue mass near the spleen, retroperitoneal lymphadenopathy, and abdominal wall nodules in the left lower quadrant and right lower quadrant suspicious for malignancy -From a malignancy standpoint, we discussed pursuing biopsy to help confirm diagnosis of malignancy -At this point, it is unclear as to what the primary malignancy would be -LDH elevated at 429. CEA mildly elevated at 28 -Biopsy of the soft tissue mass posterior to the right axilla was performed on 04/19/2023 and is currently pending -His abdominal pain is stable on today's encounter and improved from admission #Sciatica -Noted to be in the left lower back extending down the left leg causing significant discomfort -Currently, he notes this is the main source of his pain as opposed to the abdominal pain present on admission -He has received Dilaudid 1 mg IV every 2 hours [id number] and noted improvement in pain, but quick offset -We did discuss potentially having epidural steroid injection -Baclofen 5 mg every 8 hours as needed was added on 04/20/2023 -Fentanyl 12 mcg transdermal every 72 hours was also added on 04/20/2023 -Pain is unchanged from yesterday -Discussed that transdermal fentanyl would require around 36 to 48 hours before having noticeable effect. Dose increased to 25 mcg could be considered by tomorrow -During his admission, he may benefit from interventional pain management service with regards to his sciatica pain #Microcytic hypochromic anemia -He has reported melanotic stool for a week prior to admission -Hemoglobin 11.4 on admission with MCV 77.4 -There is concern for iron deficiency secondary to GI blood loss -Iron studies consistent with SHARON. IV iron started . No vitamin B12 or folate deficiency noted -Hemoglobin is currently stable with no further melena or hematochezia since admission -GI consulted, plan for endoscopic evaluation 04/23 #Atrial fibrillation, CAD -Underwent MARY JO with cardioversion on 04/16/2023 -Holding warfarin and aspirin and continuing with heparin drip -Continue remainder of cardiac regimen per primary team Cher Nicole MD
[2023-04-22] MEDS: HEPARIN SOD,PORK IN 0.45% NACL 25,000 UNIT in 0.45% NACL 1 250ML.BAG IV SCH ×2 (00:26→20:27)
[2023-04-22] MEDS: HYDROmorphone 1 MG/ML 1 ML SYRINGE IVP PRN ×8 (02:50→22:30)
[2023-04-22] MEDS: HEPARIN SODIUM 1,000 UN/ML (10ML VL) IV PRN ×2 (06:54→14:34)
[2023-04-22] MEDS: ONDANSETRON 4 MG/2 ML VIAL IVP PRN ×2 (08:11→15:59)
[2023-04-22] MEDS: PANTOPRAZOLE 40 MG/10 ML VIAL IV SCH ×2 (08:11→20:09)
[2023-04-22 09:18] LABS: Anisocytosis Slight; HCT 29.8 % (39.0-53.0); HGB 9.7 gm/dL (13.0-17.5); Hypochromasia Slight; MCH 26.5 pg (25.0-35.0); MCHC 32.6 g/dL (31.0-37.0); MCV 81.1 fL (80.0-100.0); Mean Platelet Volume 9.4; Platelet Count 311 k/uL (150-450); RBC 3.68 m/uL (4.30-5.90); RDW 16.2 % (11.5-15.5); WBC 5.6 k/uL (3.8-10.6)
[2023-04-22 09:37] LABS: African American GFR (CKD) >90 (>60 ml/min/1.73 sqM); Anion Gap 8 mmol/L; Blood Urea Nitrogen 5 mg/dL (9-20); Calcium 8.7 mg/dL (8.4-10.2); Carbon Dioxide 27 mmol/L (22-30); Chloride 99 mmol/L (98-107); Glucose 99 mg/dL (74-99); Non-African American GFR(CKD) >90 (>60 ml/min/1.73 sqM); Potassium 3.8 mmol/L (3.5-5.1); Sodium 134 mmol/L (137-145)
[2023-04-22] MEDS: MULTIVITAMINS, THERA 1 EACH TAB PO SCH (10:26)
[2023-04-22] MEDS: FUROSEMIDE 40 MG TAB PO SCH (10:27)
[2023-04-22] MEDS: amLODIPine 5 MG TAB PO SCH ×2 (10:27→20:09)
[2023-04-22] MEDS: METOPROLOL TARTRATE 12.5 MG TAB PO SCH ×2 (10:27→20:09)
--- NOTE | 2023-04-22 12:18 | P.PN ---
Subjective Progress Note Date: 04/22/23 63-year-old male with a past medical history of chronic atrial fibrillation status post cardiac ablation 04/16/23, thoracic aortic aneurysm status post repair, aortic valve regurgitation status post mechanical valve replacement on Coumadin, hypertension, hyperlipidemia, and chronic lower back pain. He presented to the emergency department on 04/18/23 secondary to reports of epigastric/abdominal pain, dark black tarry stools, and persistent intractable lower back pain with sciatica down his left leg. Upon arrival to the ER patient underwent full evaluation. Vital signs upon arrival show blood pressure 139/91, heart rate 92, respiratory rate 18, temp 98.7F, SpO2 of 99% on room air. EKG completed showing normal sinus rhythm at 84 bpm Labs completed and reviewed. CBC showing normocytic anemia with hemoglobin of 11.9. Coagulation profile showing therapeutic INR 3.0. BMP unremarkable. Lactic acid normal findings at 1.4. Magnesium slightly low at 1.7. Liver profile unremarkable. Troponin negative at less than 0.012 and proBNP of 305. Urinalysis was negative for blood, proteins, ketones, or infection. Ultrasound of the abdomen was completed showing no evidence of cholelithiasis or cholecystitis, no evidence of hydronephrosis, and reporting a hyperechoic area adjacent to the region of the left lobe of the liver posteriorly measuring 4.2 x 4.6 x 4.4 cm in diameter of unclear etiology recommending computed tomography scan for further evaluation. CT abdomen and pelvis with contrast was completed showing extensive metastatic disease/malignancy throughout the abdomen and pelvis and pleural-based metastasis in the right lung base. CT lumbar spine showing no acute osseous abn ormalities seen throughout the lumbar spine and no suspicious bony lesions. Patient was admitted under our services with consultation to hematology/oncology secondary to concerns of metastatic process. Order also placed for consult cardiology for evaluation and recommendations on holding anticoagulation with mechanical valve for needed biopsies and surgical procedures. Plans for EGD and colonoscopy on 04/23. 04/20 Patient was seen and examined. He reports sciatic pain and generalized abdominal pain. Has been getting Dilaudid 1mg IV Q2H around the clock. CBC Hg 11.5. INR 1.5. CMP BUN 5.5, alb 3.5. 04/21 Patient was seen and examined. Started on Fentanyl patch yesterday. Still reports sciatic pain and generalized abdominal pain requiring Dilaudid around the clock. CBC Hg 10.5 Hct 31.1 MCV 79.6. 04/22 Patient was seen and examined. He continues to reports uncontrolled back pain. Oncology recommends possibly increasing his Fentanyl dose. CBC Hg 9.7. APTT 31.3. BMP Na 134, BUN 5, Cr 0.51. Plans for EGD and C-scope tomorrow. General: non toxic, no distress, appears at stated age Derm: warm, dry Head: atraumatic, normocephalic, symmetric Eyes: EOMI, no lid lag, anicteric sclera Mouth: no lip lesion, mucus membranes moist Cardiovascular: S1S2 reg, no murmur Lungs: CTA bilateral, no rhonchi, no rales , no accessory muscle use Abdominal: soft, nontender to palpation, no guarding, no appreciable organomegaly Ext: no gross muscle atrophy, no edema, no contractures Neuro: no FND Psych: Alert, oriented, appropriate affect Based on my assessment of this patient, this patient meets a high complexity level of care. Patient has an acute diagnosis of metastatic CA that poses a threat to life or bodily function. Abdominal pain, abnormal CT findings concerning for extensive metastatic process throughout abdomen, pelvis, and right lung base: Oncology on board. Fentanyl 12 mcg/hr for better pain control. Dilaudid 1mg IV Q2H PRN. Melena: Plans for EGD and C-scope on 04/23. Protonix 40 mg IV BID. Microcytic anemia: Transfuse if Hg < 7. Ferric gluconate 125 mg IV QD 06/29. Aortic Mechanical valve replacement: Continue heparin drip (goal therapeutic range of 44-79 seconds) History of chronic atrial fibrillation with a slowed ventricular response status post ablation 04/16/23, now maintaining sinus mechanism: Metoprolol 12.5 mg PO BID. HFrEF with EF of 35-40% History of thoracic aortic aneurysm status post repair Hypertension: Amlodipine 5 mg PO BID. Hyperlipidemia Mild nonobstructive coronary artery disease CODE STATUS: FULL CODE DVT Prophylaxis: GI Prophylaxis: Protonix. Designated medical POA if patient is not able to make medical decisions for themselves: I have reviewed the following hematology oncology consultant notes: Oncology note. I have reviewed the results of the following tests: CBC, BMP. I have ordered the following tests: CBC, Coag panel, BMP. I have discussed the care of this patient with the following independent historian: I have independently interpreted the following test below: I have discussed the management of this patient with the following physician: Objective - Vital Signs Vital signs: Vital Signs Temp 98.3 F 04/22/23 07:54 Pulse 98 04/22/23 07:54 Resp 16 04/22/23 09:00 BP 144/77 04/22/23 07:54 Pulse Ox 95 04/22/23 08:10 FiO2 Intake & Output 04/21/23 04/22/23 04/22/23 18:59 06:59 18:59 Intake Total 245.649 76.084 Output Total 1250 Balance -1250 245.649 76.084 Intake: Intake, IV Titration 245.649 76.084 Amount Heparin Sod,Pork in 0.45% 245.649 76.084 NaCl 25,000 unit In 0.45 % NaCl 1 250ml.bag @ 12 UNITS/KG/HR 9.471 mls/hr IV .Q24H [facility] [place] Rx#: [id number] Output: Urine 1250 Other: Voiding Method Toilet Toilet Urinal # Voids 2 3 - Labs CBC & Chem 7: 04/22/23 05:40 04/22/23 05:40 Labs: Abnormal Lab Results - Last 24 Hours (Table) 04/22/23 04/22/23 04/22/23 Range/Units 05:40 05:40 05:40 RBC 3.68 L (4.30-5.90) m/uL Hgb 9.7 L (13.0-17.5) gm/dL Hct 29.8 L (39.0-53.0) % RDW 16.2 H (11.5-15.5) % APTT 31.3 H (22.0-30.0) sec Sodium 134 L (137-145) mmol/L BUN 5 L (9-20) mg/dL Creatinine 0.51 L (0.66-1.25) mg/dL
[2023-04-22] MEDS ORDERED: PEG 3350 (236 GM/BTL) + LYTES 4,000 ML BOTTLE PO ONE (15:00)
[2023-04-23] MEDS: HYDROmorphone 1 MG/ML 1 ML SYRINGE IVP PRN ×9 (00:30→23:56)
[2023-04-23] MEDS: ONDANSETRON 4 MG/2 ML VIAL IVP PRN ×2 (00:33→09:27)
[2023-04-23 09:00] LABS: Anisocytosis Slight; HCT 28.6 % (39.0-53.0); HGB 9.7 gm/dL (13.0-17.5); MCH 27.4 pg (25.0-35.0); MCHC 33.9 g/dL (31.0-37.0); MCV 80.8 fL (80.0-100.0); Mean Platelet Volume 8.4; Platelet Count 297 k/uL (150-450); RBC 3.54 m/uL (4.30-5.90); RDW 16.6 % (11.5-15.5); WBC 4.6 k/uL (3.8-10.6)
[2023-04-23] MEDS: PANTOPRAZOLE 40 MG/10 ML VIAL IV SCH ×2 (09:27→20:54)
[2023-04-23] MEDS: amLODIPine 5 MG TAB PO SCH ×2 (09:28→20:54)
[2023-04-23] MEDS: FUROSEMIDE 40 MG TAB PO SCH (09:28)
[2023-04-23] MEDS: MULTIVITAMINS, THERA 1 EACH TAB PO SCH (09:28)
[2023-04-23] MEDS: METOPROLOL TARTRATE 12.5 MG TAB PO SCH ×2 (09:28→20:54)
[2023-04-23] MEDS ORDERED: IV FLUID CONTINUATION 500 ML IV ONE (10:57)
[2023-04-23] MEDS ORDERED: LIDOCAINE 2% (PF) 20 MG/ML 5 ML VIAL ONE (11:14)
[2023-04-23] MEDS ORDERED: PROPOFOL 10 MG/ML 20 ML VIAL IV ONE (11:14)
--- NOTE | 2023-04-23 11:50 | P.PCN ---
Date of Procedure: 04/23/23 Procedure(s) Performed: Brief history: Patient is a pleasant 63-year-old white male admitted to the hospital 3 days ago when he presented with generalized abdominal pain as well as back pain for the last 1-2 months duration. Has intermittent black tarry stools. He was noted to have microcytic anemia with a hemoglobin of 10 g/dL. History of A. fib on Coumadin which is currently on hold. He was on IV heparin which is on hold for the last [address] of abdomen and pelvis showed severe retro peritoneal lymphadenopathy and pleural-based nodules suspicious for metastasis. He is scheduled for an upper endoscopy as well as colonoscopy to evaluate further Procedure performed: Esophagogastroduodenoscopy with biopsy Colonoscopy with snare polypectomy Preoperative diagnosis: Microcytic/hypochromic with anemia and intermittent melena Anesthesia: MAC Procedure: After informed consent was obtained from the patient was brought into the endoscopy unit and IV sedation was administered by anesthesia under continuous monitoring. Initially upper endoscopy was done. The Olympus GF 160 video endoscope was inserted inserted into the mouth and esophagus intubated without any difficulty and was gradually advanced into the stomach and duodenum and carefully examined. The bulb and second part of the duodenum appeared normal. The scope was then withdrawn into the stomach adequately insufflated with air and upon careful examination the antrum and body, cardia and fundus appeared normal. The scope was then withdrawn into the esophagus. The GE junction was located at 40 cm to the incisors. It appeared regular with no erythema erosions or ulcerations. Rest of the esophagus appeared normal. Patient tolerated the procedure well. At this time the patient continued to remain sedation. Initial digital rectal examination was normal. Olympus CF 160 video colonoscope was then inserted into the rectum and gradually advanced to the cecum without any difficulty. Careful examination was performed as the scope was gradually being withdrawn. The prep was poor throughout the colon with some areas that had solid stool. Irrigation was performed. Visualized portions of the cecum normal. In the ascending colon there was a 1 cm broad-based polyp was removed by snare polypectomy. Rest of the ascending colon, transverse colon, descending colon, sigmoid colon and rectum appeared normal. scattered sigmoid diverticulosis seen. Retroflexion was performed in the rectum and no lesions were noted. Patient tolerated the procedure well. Impression: 1. Upper endoscopy revealed a 6 mm and a 1.5 cm ulcerated raised polypoid lesions in the second part of the duodenum status post multiple biopsies 2. Colonoscopy revealed 1 cm broad-based ascending colon polyp status post polypectomy, sigmoid diverticulosis and poor prep throughout the colon Recommendations: Findings of this examination were discussed with the patient as well ashis family. He was advised to follow with the biopsy results. Advance to regular diet. Resume IV heparin now
[2023-04-23] MEDS: PROCHLORPERAZINE INJ 10 MG/2 ML VIAL IVP SCH ×2 (15:14→20:54)
--- NOTE | 2023-04-23 15:48 | P.PN ---
Subjective Progress Note Date: 04/23/23 Hospital Course: Patient is a very pleasant 63-year-old male with a past medical history of chronic atrial fibrillation status post cardiac ablation 04/16/23, thoracic aortic aneurysm status post repair, aortic valve regurgitation status post mechanical valve replacement on Coumadin, hypertension, hyperlipidemia, and chronic lower back pain. He presented to the emergency department on 04/18/23 secondary to reports of epigastric/abdominal pain, dark black tarry stools, and persistent intractable lower back pain with sciatica down his left leg. Upon arrival to the ER patient underwent full evaluation. Vital signs upon arrival show blood pressure 139/91, heart rate 92, respiratory rate 18, temp 98.7F, SpO2 of 99% on room air. EKG completed showing normal sinus rhythm at 84 bpm Labs completed and reviewed. CBC showing normocytic anemia with hemoglobin of 11.9. Coagulation profile showing therapeutic INR 3.0. BMP unremarkable. Lactic acid normal findings at 1.4. Magnesium slightly low at 1.7. Liver profile unremarkable. Troponin negative at less than 0.012 and proBNP of 305. Urinalysis was negative for blood, proteins, ketones, or infection. Ultrasound of the abdomen was completed showing no evidence of cholelithiasis or cholecystitis, no evidence of hydronephrosis, and reporting a hyperechoic area adjacent to the region of the left lobe of the liver posteriorly measuring 4.2 x 4.6 x 4.4 cm in diameter of unclear etiology recommending computed tomography scan for further evaluation. CT abdomen and pelvis with contrast was completed showing extensive metastatic disease/malignancy throughout the abdomen and pelvis and pleural-based metastasis in the right lung base. CT lumbar spine showing no acute osseous abnormalities seen throughout the lumbar spine and no suspicious bony lesions. Patient was admitted under our services with consultation to hematology/oncology secondary to concerns of metastatic process. Order also placed for consult cardiology for evaluation and recommendations on holding anticoagulation with mechanical valve for needed biopsies and surgical procedures. Per previous documentation in chart on 11/13/[address] of abdomen done at [facility] on 11/11/22 which revealed cholelithiasis without evidence of cholecystitis and a hiatal hernia, but reported to be negative for acute intra-abdominal process. Patient was taken for EGD and colonoscopy on 04/23/23. Physical exam: Patient seen and fully evaluated at bedside shortly after returning from EGD and colonoscopy. Heparin was resumed. Patient reports since surgery he has had intractable pain and nausea. Orders placed for Compazine 10 mg IVP scheduled every 6 hours secondary to patient's reports of intractable nausea and vomiting despite antibiotic administration with Zofran. Discussed with oncology and increased fentanyl patch to 25 g per hour. Vital signs reviewed and stable. General: Nontoxic, no distress and appears stated age. Derm: Skin warm and dry, normal coloration for ethnicity. Head: Atraumatic, normocephalic and symmetric. Eyes: EOMs intact, no lid lag, and anicteric sclera Mouth: no lip lesions, mucus membranes moist Cardiovascular: regular rate and rhythm with normal S1S2, systolic murmur, positive posterior tibial pulses bilaterally, and cap refill < 2 seconds. Enlarged Supraclavicular lymph nodes palpated Lungs: Respirations even, regular, and unlabored on room air. Lungs CTA bilaterally, no rhonchi, no rales, no wheezing, and no accessory muscle usage. Abdominal: soft, tenderness reported to the epigastric and right upper quadrant region upon palpation. Ext: RNo gross muscle atrophy, no edema, no contractures. Patient with large fi rm mass/enlarged lymph node right axillary region Neuro: Speech clear, face symmetrical and CN II-XII grossly intact with no noted focal neuro deficits Psych: Alert and oriented to person, place, time, and situation. Appropriate and pleasant affect. Assessment and Plan of Care: Chest pain, tachycardia, and postoperative hypoxia Abdominal pain, abnormal CT findings concerning for extensive metastatic process throughout abdomen, pelvis, and right lung base Melena Microcytic anemia Aortic Mechanical valve replacement History of chronic atrial fibrillation with a slowed ventricular response status post ablation 04/16/23, now maintaining sinus mechanism HFrEF with EF of 35-40% History of thoracic aortic aneurysm status post repair Hypertension Hyperlipidemia Mild nonobstructive coronary artery disease -CT abdomen and pelvis with contrast was completed showing extensive metastatic disease/malignancy throughout the abdomen and pelvis and pleural-based metastasis in the right lung base. -Oncology following, discussed plan of care with oncology [employer]ER increase fentanyl patch to 25 g per hour for better pain control. Patient will also continue with when necessary Dilaudid 1 mg every 2 hours for severe breakthrough pain. -Orders placed for Compazine 10 mg IVP every 6 hours scheduled for reports of severe persistent nausea uncontrolled by Zofran. -Gastroenterology following, the patient for EGD and colonoscopy on this morning Heparin was stopped 4 hours prior to scheduled procedure per recommendations of custom seamstress and per RN was resumed immediately postop upon return to his room. -Cardiology following and discussed plan of care with custom seamstress, Dr. Ramos regarding patient's new complaints of chest pain, tachycardia, and postoperative hypoxia. -Chest pain, tachycardia, postoperative hypoxia status post EGD and colonoscopy. RN reports patient's heart rate 130s along with reports of chest pain. Patient also reports uncontrolled pain and nausea. Patient to be medicated for nausea and pain control. Order placed for EKG and trending troponins every 3 hours 3 draws. Patient is back on heparin infusion at 12 units/kg/hour -Patient to remain on continuous Telemetry monitoring -Continue GI Prophylaxis with Protonix 40 mg IVP twice daily -Continue home medication regimen with amlodipine 5 mg twice daily, Lasix 40 mg daily, and metoprolol 12.5 mg twice daily. Aspirin 81 mg held at this time. -Microcytic anemia: Transfuse if Hg < 7. Ferric gluconate 125 mg IV completed 3 day course. -Aortic Mechanical valve replacement: Continue heparin drip (goal therapeutic range of 44-79 seconds) Data and imaging reviewed: -Vital signs reviewed. Blood pressure 130/75, heart rate 105, respiratory rate 20, temp 98.1F, SpO2 of 95% on 3 L. -Vital signs reviewed. CBC showing stable normocytic anemia with hemoglobin of 9.7. PTT this morning was therapeutic at 45.4 seconds. CODE STATUS: Full code DVT prophylaxis: Heparin infusion and will bridge back to Coumadin once patient is cleared by hematology and gastroenterology to resume. Anticipated discharge date: Clinical course to determine Anticipated discharge place: Clinical course to determine Patient was seen independently by Nurse Practitioner. This document was prepared using [employer] dictation software. Please allow for errors in incident coordinator while rare they do occur. Objective - Vital Signs Vital signs: Vital Signs Temp 97.9 F 04/23/23 07:58 Pulse 82 04/23/23 07:58 Resp 17 04/23/23 07:58 BP 119/70 04/23/23 07:58 Pulse Ox 93 L 04/23/23 08:48 FiO2 Intake & Output 04/22/23 04/23/23 04/23/23 18:59 06:59 18:59 Intake Total 757.347 72.653 177.023 Output Total 880 Balance -122.653 72.653 177.023 Intake: Intake, IV Titration 177.347 72.653 177.023 Amount Heparin Sod,Pork in 0.45% 177.347 72.653 177.023 NaCl 25,000 unit In 0.45 % NaCl 1 250ml.bag @ 12 UNITS/KG/HR 9.471 mls/hr IV .Q24H [facility] Rx#: [id number] Oral 580 0 Output: Urine 880 Other: Voiding Method Toilet Urinal # Voids 3 # Bowel Movements 1 4 - Labs CBC & Chem 7: 04/23/23 06:30 04/22/23 05:40 Labs: Abnormal Lab Results - Last 24 Hours (Table) 04/22/23 04/22/23 04/22/23 Range/Units 05:40 05:40 13:11 RBC 3.68 L (4.30-5.90) m/uL Hgb 9.7 L (13.0-17.5) gm/dL Hct 29.8 L (39.0-53.0) % RDW 16.2 H (11.5-15.5) % APTT 39.9 H (22.0-30.0) sec Sodium 134 L (137-145) mmol/L BUN 5 L (9-20) mg/dL Creatinine 0.51 L (0.66-1.25) mg/dL 04/22/23 04/23/23 04/23/23 Range/Units 18:53 06:30 06:30 RBC 3.54 L (4.30-5.90) m/uL Hgb 9.7 L (13.0-17.5) gm/dL Hct 28.6 L (39.0-53.0) % RDW 16.6 H (11.5-15.5) % APTT 41.9 H 45.4 H (22.0-30.0) sec Sodium (137-145) mmol/L BUN (9-20) mg/dL Creatinine (0.66-1.25) mg/dL
--- NOTE | 2023-04-23 15:48 | XR ---
EXAMINATION TYPE: XR chest 1V portable DATE OF EXAM: 04/23/2023 3:43 PM CLINICAL INDICATION:Male, 63 years old with history of sob, chest pain; COMPARISON: Chest radiographs from 01/29/2023. TECHNIQUE: XR chest 1V portable Frontal view of the chest. FINDINGS: Lungs/Pleura: Multifocal airspace opacities. No evidence of pneumothorax or pleural effusion. Pulmonary vascularity: Unremarkable. Heart/mediastinum: Cardiomediastinal silhouette is unremarkable. Musculoskeletal: No acute osseous pathology. Midline sternotomy wires are noted. IMPRESSION: Multifocal airspace opacities concerning for pneumonia.
[2023-04-23] MEDS ORDERED: DILTIAZEM DRIP BOLUS FROM BAG 1 MG SOLN IV STA (16:16)
[2023-04-23] MEDS ORDERED: FUROSEMIDE 10 MG/ML 4 ML VIAL IV STA (16:16)
[2023-04-23] MEDS: DILTIAZEM 125 MG in SODIUM CHLORIDE 0.9% 100 ML IV SCH (17:13)
[2023-04-23] MEDS: HEPARIN SOD,PORK IN 0.45% NACL 25,000 UNIT in 0.45% NACL 1 250ML.BAG IV SCH (17:15)
[2023-04-24] MEDS: PROCHLORPERAZINE INJ 10 MG/2 ML VIAL IVP SCH ×2 (03:56→07:39)
[2023-04-24] MEDS: HYDROmorphone 1 MG/ML 1 ML SYRINGE IVP PRN ×6 (04:02→23:07)
[2023-04-24] MEDS: DILTIAZEM 125 MG in SODIUM CHLORIDE 0.9% 100 ML IV SCH (05:56)
[2023-04-24] MEDS: METOPROLOL TARTRATE 12.5 MG TAB PO SCH (07:39)
[2023-04-24] MEDS: FUROSEMIDE 40 MG TAB PO SCH (07:39)
[2023-04-24] MEDS: HEPARIN SOD,PORK IN 0.45% NACL 25,000 UNIT in 0.45% NACL 1 250ML.BAG IV SCH ×2 (07:39→22:48)
[2023-04-24] MEDS: PANTOPRAZOLE 40 MG/10 ML VIAL IV SCH ×2 (07:39→20:12)
[2023-04-24] MEDS: amLODIPine 5 MG TAB PO SCH (07:39)
[2023-04-24] MEDS: MULTIVITAMINS, THERA 1 EACH TAB PO SCH (07:39)
[2023-04-24] MEDS ORDERED: METOPROLOL TARTRATE 50 MG TAB PO SCH (09:00)
[2023-04-24] MEDS ORDERED: METOPROLOL TARTRATE 12.5 MG TAB PO ONE (09:15)
[2023-04-24] MEDS ORDERED: PROCHLORPERAZINE INJ 10 MG/2 ML VIAL IVP PRN (10:07)
--- NOTE | 2023-04-24 10:38 | P.PN ---
Subjective Progress Note Date: 04/24/23 Hospital Course: Patient is a very pleasant 63-year-old male with a past medical history of chronic atrial fibrillation status post cardiac ablation 04/16/23, thoracic aortic aneurysm status post repair, aortic valve regurgitation status post mechanical valve replacement on Coumadin, hypertension, hyperlipidemia, and chronic lower back pain. He presented to the emergency department on 04/18/23 secondary to reports of epigastric/abdominal pain, dark black tarry stools, and persistent intractable lower back pain with sciatica down his left leg. Upon arrival to the ER patient underwent full evaluation. Vital signs upon arrival show blood pressure 139/91, heart rate 92, respiratory rate 18, temp 98.7F, SpO2 of 99% on room air. EKG completed showing normal sinus rhythm at 84 bpm Labs completed and reviewed. CBC showing normocytic anemia with hemoglobin of 11.9. Coagulation profile showing therapeutic INR 3.0. BMP unremarkable. Lactic acid normal findings at 1.4. Magnesium slightly low at 1.7. Liver profile unremarkable. Troponin negative at less than 0.012 and proBNP of 305. Urinalysis was negative for blood, proteins, ketones, or infection. Ultrasound of the abdomen was completed showing no evidence of cholelithiasis or cholecystitis, no evidence of hydronephrosis, and reporting a hyperechoic area adjacent to the region of the left lobe of the liver posteriorly measuring 4.2 x 4.6 x 4.4 cm in diameter of unclear etiology recommending computed tomography scan for further evaluation. CT abdomen and pelvis with contrast was completed showing extensive metastatic disease/malignancy throughout the abdomen and pelvis and pleural-based metastasis in the right lung base. CT lumbar spine showing no acute osseous abnormalities seen throughout the lumbar spine and no suspicious bony lesions. Patient was admitted under our services with consultation to hematology/oncology secondary to concerns of metastatic process. Order also placed for consult cardiology for evaluation and recommendations on holding anticoagulation with mechanical valve for needed biopsies and surgical procedures. Per previous documentation in chart on 11/13/[address] of abdomen done at [facility] on 11/11/22 which revealed cholelithiasis without evidence of cholecystitis and a hiatal hernia, but reported to be negative for acute intra-abdominal process. Patient was taken for EGD and colonoscopy on 04/23/23. Physical exam: Patient seen and fully evaluated at bedside this morning. Patient reports total control of previous reported nausea and states his pain is currently controlled as well at this time. Changed Compazine ordered previously from scheduled to as needed as patient is no longer with persistent uncontrolled nausea. Patient did have episode of atrial fibrillation with RVR yesterday evening shortly after completion of EGD and colonoscopy. He was already back on heparin infusion and was started on Cardizem infusion for rate control. Vital signs reviewed and stable. General: Nontoxic, no distress and appears stated age. Derm: Skin warm and dry, normal coloration for ethnicity. Head: Atraumatic, normocephalic and symmetric. Eyes: EOMs intact, no lid lag, and anicteric sclera Mouth: no lip lesions, mucus membranes moist Cardiovascular: regular rate and rhythm with normal S1S2, systolic murmur, positive posterior tibial pulses bilaterally, and cap refill < 2 seconds. Enlarged Supraclavicular lymph nodes palpated Lungs: Respirations even, regular, and unlabored on room air. Lungs CTA bilaterally, no rhonchi, no rales, no wheezing, and no accessory muscle usage. Abdominal: soft, tenderness reported to the epigastric and right upper quadrant region upon palpation. Ext: RNo gross muscle atrophy, no edema, no contractures. Patient with large firm mass/enlarged lymph node right axillary region Neuro: Speech clear, face symmetrical and CN II-XII grossly intact with no noted focal neuro deficits Psych: Alert and oriented to person, place, time, and situation. Appropriate and pleasant affect. Assessment and Plan of Care: Atrial fibrillation with RVR Chest pain, tachycardia, and postoperative hypoxia secondary to above episode Abdominal pain, abnormal CT findings concerning for extensive metastatic process throughout abdomen, pelvis, and right lung base Melena x 1 week, resolved Microcytic anemia, stable Aortic Mechanical valve replacement History of chronic atrial fibrillation with a slowed ventricular response status post ablation 04/16/23, now maintaining sinus mechanism HFrEF with EF of 35-40% History of thoracic aortic aneurysm status post repair Hypertension Hyperlipidemia Mild nonobstructive coronary artery disease -CT abdomen and pelvis with contrast was completed showing extensive metastatic disease/malignancy throughout the abdomen and pelvis and pleural-based metastasis in the right lung base. -Right Axillary mass/enlarged firm lymph node. IR was consulted and patient underwent biopsy on 04/19/23. -Oncology following, discussed plan of care with oncology MEASUREMENT PSYCHOLOGIST regarding successful pain control status post increasing dose of fentanyl patch to 25 g per hour -Gastroenterology following, and took patient for EGD and colonoscopy on 1 06/24/22 where patient was found to have a 6 mm at 1.5 cm ulcerated raised polypoid lesion in the second part of the duodenum and underwent biopsies as well as 1 cm colon polyp status post polypectomy. -Cardiology following, reviewed documentation in chart. Cardiology discontinued amlodipine and increased metoprolol to 50 mg twice daily and starting patient back on Coumadin while bridging with heparin until INR is therapeutic -Metoprolol was increased to 50 mg twice a day and Cardizem infusion was discontinued by cardiology this morning. Patient remains in atrial fibrillation with a controlled ventricular rate 70s to 90s. -Patient to remain on continuous Telemetry monitoring -Continue GI Prophylaxis with Protonix 40 mg IVP twice daily -Microcytic anemia: Transfuse if Hg < 7. Ferric gluconate 125 mg IV was given and patient completed 3 day course. Hemoglobin stable at 9.7. -Aortic Mechanical valve replacement: Patient was started back on Coumadin and we will Continue heparin drip (goal therapeutic range of 44-79 seconds) while bridging until reaching therapeutic INR of 2.5 Data and imaging reviewed: -EKG completed yesterday evening and reviewed this morning showing atrial fibrillation with RVR at 152 bpm -Vital signs reviewed. Blood pressure 123/68, heart rate 89, respiratory rate 18, temp 97.9F, and SpO2 92% on 4 L. -Labs completed and reviewed. CBC showing stable normocytic anemia with hemoglobin of 9.7. PTT this morning was therapeutic at 45.4 seconds. CODE STATUS: Full code DVT prophylaxis: Heparin infusion and will bridge back to Coumadin once patient is cleared by hematology and gastroenterology to resume. Anticipated discharge date: Clinical course to determine Anticipated discharge place: Clinical course to determine Patient was seen independently by Nurse Practitioner. This document was prepared using [employer] dictation software. Please allow for errors in general house worker while rare they do occur. Objective - Vital Signs Vital signs: Vital Signs Temp 98.7 F 04/23/23 20:00 Pulse 109 H 04/24/23 04:00 Resp 20 04/24/23 04:00 BP 104/87 04/24/23 04:00 Pulse Ox 92 L 04/24/23 04:00 FiO2 Intake & Output 04/23/23 04/24/23 04/24/23 18:59 06:59 18:59 Intake Total 878.884 53.5 238.608 Output Total 575 375 Balance 303.884 -321.5 238.608 Weight 78.925 kg Intake: IV 400 Intake, IV Titration 238.884 53.5 238.608 Amount Diltiazem 125 mg In 53.5 0 Sodium Chloride 0.9% 100 ml @ 10 MG/HR 10 mls/hr IV .[id number] ROB Rx#: [id number] Heparin Sod,Pork in 0.45% 238.884 238.608 NaCl 25,000 unit In 0.45 % NaCl 1 250ml.bag @ 12 UNITS/KG/HR 9.471 mls/hr IV .Q24H ROB Rx#: [id number] Oral 240 Output: Urine 575 375 Other: Voiding Method Toilet Toilet Urinal Urinal # Voids 1 1 - Labs CBC & Chem 7: 04/23/23 06:30 04/22/23 05:40 Labs: Abnormal Lab Results - Last 24 Hours (Table) 04/23/23 Range/Units 06:30 RBC 3.54 L (4.30-5.90) m/uL Hgb 9.7 L (13.0-17.5) gm/dL Hct 28.6 L (39.0-53.0) % RDW 16.6 H (11.5-15.5) %
--- NOTE | 2023-04-24 10:59 | P.PN ---
Subjective HISTORY OF PRESENT ILLNESS: This is a 63-year-old male with a past medical history significant for paroxysmal atrial fibrillation, mild nonobstructive CAD, hypertension, hyperlipidemia, On-X mechanical aortic valve replacement in September 2019 secondary to bicuspid aortic valve, and ascending aortic aneurysm status post bessy-arch repair. Patient follows in the office with Dr. Venegas. We have been asked to see the patient in consultation for anticoagulation management. Patient examined at the bedside. Patient recently underwent outpatient MARY JO and cardioversion on 04/16/[address] Venegas with successful conversion to sinus mechanism. The patient states over the past few days he has been having pain in his left hip and his lower back. He states that a couple days ago he noticed a lump in his right axilla region which had not previously been there. He also reports a few days ago he woke up with pain in the middle of his chest and then diffuse abdominal pain. He also reports having black stools for the past week. He currently denies any chest pain or pressure. He denies any shortness of breath. The patient states that he quit drinking alcohol in January and has lost some weight since that time which he treated to not drinking. He is a former cigarette smoker and quit smoking 10 years ago. * EKG reveals sinus mechanism with no signs of acute ischemia * Current home cardiac medications include aspirin 81 mg daily, Lasix 40 mg daily, metoprolol tartrate 12.5 mg twice a day, Norvasc 5 mg twice a day, warf mike 7.5 mg Saturday and 10 mg Saturday * Most recent echocardiogram obtained in January 2023 revealed ejection fraction 35-40% with normally functioning mechanical aortic valve * Cardiac catheterization history: 2019 at the [facility] revealing left main 20-30% stenosis, diagonal 1 20% stenosis, OM 20%, and RCA 20% 04/24/2023 Cardiology was reconsulted secondary to tachycardia, chest pain, and hypoxia. Patient is status post endoscopy yesterday. He is also status post right axilla biopsy. Results are pending. The patient states yesterday after his endoscopy he felt short of breath. He was given a dose of IV Lasix 1 with improvement in his breathing. He denies any chest pain or pressure at the time of examination. The patient was also found to be in A. fib with RVR. He was started on IV Cardizem. This morning he remains in atrial fibrillation with a heart rate in the 70s to 80s. He remains on IV Cardizem at 10 mg an hour. He remains on IV heparin. His Coumadin has been on hold secondary to endoscopy yesterday. PHYSICAL EXAM: VITAL SIGNS: Reviewed. GENERAL: Well-developed in no acute distress. HEENT: Head is normocephalic. Pupils are equal, round. Sclerae anicteric. Mucous membranes of the mouth are moist. Neck supple. No JVD or thyromegaly LUNGS: Respirations even and unlabored. Lungs essentially clear to auscultation bilaterally. HEART: Irregular rate and rhythm. S1 and S2 heard. ABDOMEN: Soft. Nondistended. Nontender. EXTREMITIES: Normal range of motion. No clubbing or cyanosis. Peripheral pulses intact. No lower extremity edema NEUROLOGIC: Awake and alert. Oriented x 3. ASSESSMENT: Abdominal pain, CT scan revealing extensive metastatic disease throughout abdomen and pelvis and pleural-based metastasis and right lung base Melena x 1 week, status post endoscopy Right axilla mass, status post biopsy Bicuspid aortic valve, status post On-X mechanical aortic valve replacement in September 2019, [facility] 2019 Mild nonobstructive CAD per cardiac catheterization, [facility] 2019 Nonischemic cardiomyopathy, ejection fraction 35-40% Paroxysmal atrial fibrillation Status post MARY JO and cardioversion 04/16/2023 Ascending aortic aneurysm, s/p bessy-arch repair Hypertension Hyperlipidemia Former nicotine dependence PLAN: Continue IV heparin Resume Coumadin. Monitor INR. Heparin may be discontinued when INR is therapeutic Increase metoprolol to 50 mg twice a day Discontinue IV Cardizem Continue telemetry monitoring Further recommendations pending patient's course Nurse practitioner note has been reviewed by physician. Signing provider agrees with the documented findings, assessment, and plan of care. Objective - Vital Signs Vital signs: Vital Signs Temp 97.9 F 04/24/23 08:00 Pulse 89 04/24/23 08:00 Resp 18 04/24/23 08:00 BP 123/68 04/24/23 08:00 Pulse Ox 91 L 04/24/23 08:19 FiO2 Intake & Output 04/23/23 04/24/23 04/24/23 18:59 06:59 18:59 Intake Total 878.884 53.5 525.162 Output Total 575 375 475 Balance 303.884 -321.5 50.162 Weight 78.925 kg Intake: IV 400 Intake, IV Titration 238.884 53.5 285.162 Amount Diltiazem 125 mg In 53.5 8.167 Sodium Chloride 0.9% 100 ml @ 5 MG/HR 5 mls/hr IV .Q24H ROB Rx#:[id number] Heparin Sod,Pork in 0.45% 238.884 276.995 NaCl 25,000 unit In 0.45 % NaCl 1 250ml.bag @ 12 UNITS/KG/HR 9.471 mls/hr IV .Q24H ROB Rx#: [id number] Oral 240 240 Output: Urine 575 375 475 Other: Voiding Method Toilet Toilet Toilet Urinal Urinal Urinal # Voids 1 1 - Labs CBC & Chem 7: 04/23/23 06:30 04/22/23 05:40 Labs: Abnormal Lab Results - Last 24 Hours (Table) 04/24/23 Range/Units 09:07 APTT 42.1 H (22.0-30.0) sec
--- NOTE | 2023-04-24 14:15 | P.PN ---
Subjective Progress Note Date: 04/24/23 No acute events. Reporting improved pain control today after fentanyl increased to 25mcg. Reporting fatigue. Right axilla biopsy pending. Underwent endoscopy yesterday with GI, with biopsies obtained within the duodenum. Pt then subsequently went into a-fib rvr and was transferred to cardiac unit. Cardiology has been consulted. Objective - Vital Signs Vital signs: Vital Signs Temp 97.9 F 04/24/23 08:00 Pulse 89 04/24/23 08:00 Resp 18 04/24/23 08:00 BP 123/68 04/24/23 08:00 Pulse Ox 91 L 04/24/23 08:19 FiO2 Intake & Output 04/23/23 04/24/23 04/24/23 18:59 06:59 18:59 Intake Total 878.884 53.5 525.162 Output Total 575 375 475 Balance 303.884 -321.5 50.162 Weight 78.925 kg Intake: IV 400 Intake, IV Titration 238.884 53.5 285.162 Amount Diltiazem 125 mg In 53.5 8.167 Sodium Chloride 0.9% 100 ml @ 5 MG/HR 5 mls/hr IV .Q24H ROB Rx#:[id number] Heparin Sod,Pork in 0.45% 238.884 276.995 NaCl 25,000 unit In 0.45 % NaCl 1 250ml.bag @ 12 UNITS/KG/HR 9.471 mls/hr IV .Q24H ROB Rx#: [id number] Oral 240 240 Output: Urine 575 375 475 Other: Voiding Method Toilet Toilet Toilet Urinal Urinal Urinal # Voids 1 1 - Constitutional General appearance: Present: average body habitus, no acute distress - EENT Eyes: Present: anicteric sclerae, EOMI ENT: Present: hearing grossly normal - Respiratory Details: breathing is even and unlabored - Cardiovascular Details: skin warm and dry - Integumentary Integumentary: Absent: cyanotic, jaundiced - Psychiatric Psychiatric Comment(s): lethargic Psychiatric: Present: A&O x's 3 - Labs CBC & Chem 7: 04/23/23 06:30 04/22/23 05:40 Labs: Abnormal Lab Results - Last 24 Hours (Table) 12/27/23 Range/Units 09:07 APTT 42.1 H (22.0-30.0) sec Assessment and Plan (1) Abdominal pain Current Visit: Yes Status: Acute Priority: High Code(s): R10.9 - UNSPECIFIED ABDOMINAL PAIN SNOMED Code(s): 50473859 (2) Microcytic hypochromic anemia Current Visit: Yes Status: Acute Priority: High Code(s): D50.9 - IRON DEFICIENCY ANEMIA, UNSPECIFIED SNOMED Code(s): 08487454 (3) Afib Current Visit: Yes Status: Chronic Priority: Medium Code(s): I48.91 - UNSPECIFIED ATRIAL FIBRILLATION SNOMED Code(s): 97775496 Plan: #Abdominal pain -Noted to have been present for at least 1 to 2 months prior to initial presentation -This was progressive in nature and eventually became more painful than sciatica of the left leg, which was the main source of pain -He did note melanotic stool over the past week -He has had fatigue with night sweats -Physical exam was significant for right cervical and bilateral supraclavicular lymphadenopathy in addition to palpable soft tissue mass just posterior to the lower portion of the right axilla -Exam was also notable for palpable lump to lesion in the left lower quadrant -CT abdomen/pelvis on admission was notable for pleural-based lesion in the right lower lobe, bilateral adrenal gland nodules, 2 left kidney nodules, soft tissue mass near the spleen, retroperitoneal lymphadenopathy, and abdominal wall nodules in the left lower quadrant and right lower quadrant suspicious for malignancy -From a malignancy standpoint, we discussed pursuing biopsy to help confirm diagnosis of malignancy -At this point, it is unclear as to what the primary malignancy would be -LDH elevated at 429. CEA mildly elevated at 28 -Biopsy of the soft tissue mass posterior to the right axilla was performed on 04/19/2023 and is currently pending -His abdominal pain is stable on today's encounter and improved from admission #Sciatica -Noted to be in the left lower back extending down the left leg causing significant discomfort -Currently, he notes this is the main source of his pain as opposed to the abdominal pain present on admission -He has received Dilaudid 1 mg IV every 2 hours [id number] and noted improvement in pain, but quick offset -We did discuss potentially having epidural steroid injection -Baclofen 5 mg every 8 hours as needed was added on 04/20/2023 -Fentanyl 12 mcg transdermal every 72 hours was also added on 04/20/2023. Pt was reporting pain was not being well controlled, dose was increased to 25 mcg. Reporting better pain control today. Will continue to monitor -Interventional pain management consult placed for eval for possible epidural #Microcytic hypochromic anemia -He has reported melanotic stool for a week prior to admission -Hemoglobin 11.4 on admission with MCV 77.4 -There is concern for iron deficiency secondary to GI blood loss -Iron studies consistent with SHARON. IV iron started . No vitamin B12 or folate deficiency noted -Hemoglobin is currently stable with no further melena or hematochezia since admission -GI consulted, s/p endoscopic evaluation 04/23. EGD revealed a 6 mm and a 1.65 cm ulcerated raised polypoid lesion in the second part of the duodenum with multiple biopsies obtained. Colonoscopy revealed 1 cm broad-based ascending colon polyp status post polypectomy #Atrial fibrillation, CAD -Underwent MARY JO with cardioversion on 04/16/2023 -Holding warfarin and aspirin and continuing with heparin drip -Went into a-fib rvr yesterday s/p procedure. transferred to cardiac unit, c ardiology consulted -Continue remainder of cardiac regimen per primary team/cardiology
[2023-04-24 17:25] LABS: Anisocytosis Slight; HCT 31.1 % (39.0-53.0); HGB 10.4 gm/dL (13.0-17.5); MCH 27.1 pg (25.0-35.0); MCHC 33.5 g/dL (31.0-37.0); Mean Platelet Volume 7.8; Platelet Count 314 k/uL (150-450); RBC 3.84 m/uL (4.30-5.90); RDW 17.1 % (11.5-15.5); WBC 9.4 k/uL (3.8-10.6)
[2023-04-24] MEDS ORDERED: WARFARIN 10 MG TAB PO ONE (18:00)
[2023-04-24] MEDS: METOPROLOL TARTRATE 50 MG TAB PO SCH (20:12)
[2023-04-25] MEDS: HYDROmorphone 1 MG/ML 1 ML SYRINGE IVP PRN ×3 (03:03→09:11)
[2023-04-25 07:06] LABS: Anisocytosis Slight; HGB 9.8 gm/dL (13.0-17.5); MCH 27.3 pg (25.0-35.0); MCHC 33.8 g/dL (31.0-37.0); MCV 80.9 fL (80.0-100.0); Mean Platelet Volume 7.8; Platelet Count 337 k/uL (150-450); RBC 3.58 m/uL (4.30-5.90); RDW 16.9 % (11.5-15.5); WBC 8.4 k/uL (3.8-10.6)
[2023-04-25 07:11] LABS: INR 1.1 (<1.2); Partial Thromboplastin Time 44.2 sec (22.0-30.0)
[2023-04-25 07:17] LABS: ALT 15 U/L (4-49); AST 22 U/L (17-59); African American GFR (CKD) >90 (>60 ml/min/1.73 sqM); Albumin 3.3 g/dL (3.5-5.0); Alkaline Phosphatase 73 U/L (38-126); Anion Gap 10 mmol/L; Blood Urea Nitrogen 5 mg/dL (9-20); Calcium 8.8 mg/dL (8.4-10.2); Carbon Dioxide 33 mmol/L (22-30); Chloride 88 mmol/L (98-107); Glucose 115 mg/dL (74-99); Magnesium 1.6 mg/dL (1.6-2.3); Non-African American GFR(CKD) >90 (>60 ml/min/1.73 sqM); Potassium 3.2 mmol/L (3.5-5.1); Sodium 131 mmol/L (137-145); Total Bilirubin 1.6 mg/dL (0.2-1.3); Total Protein 5.9 g/dL (6.3-8.2)
[2023-04-25] MEDS: MULTIVITAMINS, THERA 1 EACH TAB PO SCH (09:11)
[2023-04-25] MEDS: PANTOPRAZOLE 40 MG/10 ML VIAL IV SCH ×2 (09:12→21:58)
[2023-04-25] MEDS: FUROSEMIDE 40 MG TAB PO SCH (09:12)
[2023-04-25] MEDS: METOPROLOL TARTRATE 25 MG TAB PO SCH ×2 (09:12→22:00)
--- NOTE | 2023-04-25 11:44 | P.PN ---
Subjective HISTORY OF PRESENT ILLNESS: This is a 63-year-old male with a past medical history significant for paroxysmal atrial fibrillation, mild nonobstructive CAD, hypertension, hyperlipidemia, On-X mechanical aortic valve replacement in September 2019 secondary to bicuspid aortic valve, and ascending aortic aneurysm status post bessy-arch repair. Patient follows in the office with Dr. Venegas. We have been asked to see the patient in consultation for anticoagulation management. Patient examined at the bedside. Patient recently underwent outpatient MARY JO and cardioversion on 04/16/[address] Venegas with successful conversion to sinus mechanism. The patient states over the past few days he has been having pain in his left hip and his lower back. He states that a couple days ago he noticed a lump in his right axilla region which had not previously been there. He also reports a few days ago he woke up with pain in the middle of his chest and then diffuse abdominal pain. He also reports having black stools for the past week. He currently denies any chest pain or pressure. He denies any shortness of breath. The patient states that he quit drinking alcohol in January and has lost some weight since that time which he treated to not drinking. He is a former cigarette smoker and quit smoking 10 years ago. * EKG reveals sinus mechanism with no signs of acute ischemia * Current home cardiac medications include aspirin 81 mg daily, Lasix 40 mg daily, metoprolol tartrate 12.5 mg twice a day, Norvasc 5 mg twice a day, warf mike 7.5 mg Saturday and 10 mg Saturday * Most recent echocardiogram obtained in January 2023 revealed ejection fraction 35-40% with normally functioning mechanical aortic valve * Cardiac catheterization history: 2019 at the [facility] revealing left main 20-30% stenosis, diagonal 1 20% stenosis, OM 20%, and RCA 20% 04/24/2023 Cardiology was reconsulted secondary to tachycardia, chest pain, and hypoxia. Patient is status post endoscopy yesterday. He is also status post right axilla biopsy. Results are pending. The patient states yesterday after his endoscopy he felt short of breath. He was given a dose of IV Lasix 1 with improvement in his breathing. He denies any chest pain or pressure at the time of examination. The patient was also found to be in A. fib with RVR. He was started on IV Cardizem. This morning he remains in atrial fibrillation with a heart rate in the 70s to 80s. He remains on IV Cardizem at 10 mg an hour. He remains on IV heparin. His Coumadin has been on hold secondary to endoscopy yesterday. 04/25/2023 Patient examined this morning at the bedside. Patient currently denies chest pain or pressure. He reports mild shortness of breath. Telemetry reveals atrial fibrillation with a heart rate around 120. He remains on IV heparin. PHYSICAL EXAM: VITAL SIGNS: Reviewed. GENERAL: Well-developed in no acute distress. HEENT: Head is normocephalic. Pupils are equal, round. Sclerae anicteric. Mucous membranes of the mouth are moist. Neck supple. No JVD or thyromegaly LUNGS: Respirations even and unlabored. Lungs essentially clear to auscultation bilaterally. HEART: Irregular rate and rhythm. S1 and S2 heard. ABDOMEN: Soft. Nondistended. Nontender. EXTREMITIES: Normal range of motion. No clubbing or cyanosis. Peripheral pulses intact. No lower extremity edema NEUROLOGIC: Awake and alert. Oriented x 3. ASSESSMENT: Abdominal pain, CT scan revealing extensive metastatic disease throughout abdomen and pelvis and pleural-based metastasis and right lung base Melena x 1 week, status post endoscopy Right axilla mass, status post biopsy Bicuspid aortic valve, status post On-X mechanical aortic valve replacement in September 2019, [facility] 2019 Mild nonobstructive CAD per cardiac catheterization, [facility] 2019 Nonischemic cardiomyopathy, ejection fraction 35-40% Paroxysmal atrial fibrillation Status post MARY JO and cardioversion 04/16/2023 Ascending aortic aneurysm, s/p bessy-arch repair Hypertension Hyperlipidemia Former nicotine dependence PLAN: Continue IV heparin Patient's Coumadin was to be resumed yesterday. However oncology has requested to wait until this evening for epidural injection with anesthesia. We will resume Coumadin tonight. Monitor INR. Heparin may be discontinued when INR is therapeutic Increase metoprolol to 75 mg twice a day Continue telemetry monitoring Further recommendations pending patient's course Nurse practitioner note has been reviewed by physician. Signing provider agrees with the documented findings, assessment, and plan of care. Objective - Vital Signs Vital signs: Vital Signs Temp 97.8 F 04/25/23 08:00 Pulse 106 H 12/28/23 08:00 Resp 18 04/25/23 08:00 BP 117/75 04/25/23 08:00 Pulse Ox 96 04/25/23 08:00 FiO2 Intake & Output 04/24/23 04/25/23 04/25/23 18:59 06:59 18:59 Intake Total 885.162 211.613 250 Output Total 1050 500 Balance -164.838 -288.387 250 Weight 81.6 kg Intake: Intake, IV Titration 285.162 211.613 Amount Diltiazem 125 mg In 8.167 Sodium Chloride 0.9% 100 ml @ 5 MG/HR 5 mls/hr IV .Q24H [facility] Rx#:[id number] Heparin Sod,Pork in 0.45% 276.995 211.613 NaCl 25,000 unit In 0.45 % NaCl 1 250ml.bag @ 12 UNITS/KG/HR 9.471 mls/hr IV .Q24H [facility] Rx#: [id number] Oral 600 250 Output: Urine 1050 500 Other: Voiding Method Toilet Toilet Toilet Urinal Urinal Urinal - Labs CBC & Chem 7: 04/25/23 06:37 04/25/23 06:37 Labs: Abnormal Lab Results - Last 24 Hours (Table) 04/24/23 04/24/23 04/25/23 Range/Units 15:41 17:13 06:37 RBC 3.84 L (4.30-5.90) m/uL Hgb 10.4 L (13.0-17.5) gm/dL Hct 31.1 L (39.0-53.0) % RDW 17.1 H (11.5-15.5) % APTT 52.8 H 44.2 H (22.0-30.0) sec Sodium (137-145) mmol/L Potassium (3.5-5.1) mmol/L Chloride (98-107) mmol/L Carbon Dioxide (22-30) mmol/L BUN (9-20) mg/dL Creatinine (0.66-1.25) mg/dL Glucose (74-99) mg/dL Total Bilirubin (0.2-1.3) mg/dL Total Protein (6.3-8.2) g/dL Albumin (3.5-5.0) g/dL 04/25/23 04/25/23 Range/Units 06:37 06:37 RBC 3.58 L (4.30-5.90) m/uL Hgb 9.8 L (13.0-17.5) gm/dL Hct 29.0 L (39.0-53.0) % RDW 16.9 H (11.5-15.5) % APTT (22.0-30.0) sec Sodium 131 L (137-145) mmol/L Potassium 3.2 L (3.5-5.1) mmol/L Chloride 88 L (98-107) mmol/L Carbon Dioxide 33 H (22-30) mmol/L BUN 5 L (9-20) mg/dL Creatinine 0.61 L (0.66-1.25) mg/dL Glucose 115 H (74-99) mg/dL Total Bilirubin 1.6 H (0.2-1.3) mg/dL Total Protein 5.9 L (6.3-8.2) g/dL Albumin 3.3 L (3.5-5.0) g/dL
--- NOTE | 2023-04-25 12:22 | P.PAINCN ---
History of Present Illness - Reason for Consult Consult date: 04/25/23 - History of Present Illness This is still in years old male with a chronic history of severe low back pain, patient was admitted to [facility] secondary to abdominal pain , and patient had history of chronic severe low back pain, and he was treated as an outpatient by the [facility], and according to the patient patient had multiple back injection with results, I'll continue his complaining of severe l ow back pain with radiation to the lower extremity, patient diagnosed with lumbar degenerative disc disease lumbar radiculopathy and lumbar spondylosis with lumbar facet arthropathy, patient on anticoagulation as an outpatient secondary to ataxia fibrillation and artificial heart valve, patient had lung malignancy with metastasis to the pelvic, and spine, currently patient on fentanyl patch 25 g every 72 hours and baclofen 5 mg 3 times a day and Dilaudid 1 mg IV every 3 hours and he continued to have severe low back pain Past Medical History Past Medical History: Atrial Fibrillation, Coronary Artery Disease (CAD), Heart Failure, Hyperlipidemia, Hypertension, Skin Disorder Additional Past Medical History / Comment(s): chronic lower back pain w/ Lt. sciatica, TBI, hiatal hernia, cardiomyopathy, psoriasis, CHF - had a recent script for Jardiance and states, "I'm not taking it, I saw it on t.v, all the side effects." History of Any Multi-Drug Resistant Organisms: None Reported Past Surgical History: Cardiac Valve Replacement, Coronary Bypass/CABG Additional Past Surgical History / Comment(s): Rt. knee arthroscopy, jaw/facial reconstruction, aortic valve replacement w/ on-x mechanical valve & aortic root repair 2019 Past Anesthesia/Blood Transfusion Reactions: No Reported Reaction Past Psychological History: Anxiety, PTSD Smoking Status: Former smoker Past Alcohol Use History: None Reported Past Drug Use History: None Reported - Past Family History Mother Family Medical History: No Reported History Father Additional Family Medical History / Comment(s): Passed when patient was a child possibly related to heart disease. Medications and Allergies Home Medications Medication Instructions Recorded Confirmed Type Aspirin [Children's Aspirin] 81 mg PO DAILY 11/11/22 04/18/23 History Omeprazole 20 mg PO DAILY 11/11/22 04/18/23 History Warfarin [Coumadin] 7.5 mg PO MOWEFR@2100 11/11/22 04/18/23 History Warfarin [Coumadin] 10 mg PO SUTUTHSA@2100 11/11/22 04/18/23 History amLODIPine [Norvasc] 5 mg PO BID 11/11/22 04/18/23 History Albuterol Inhaler [Ventolin Hfa 2 puff INHALATION RT-Q6H PRN 01/29/23 04/18/23 History Inhaler] Furosemide [Lasix] 40 mg PO DAILY 30 Days #30 tab 02/05/23 04/18/23 Rx Metoprolol Tartrate [Lopressor] 12.5 mg PO BID 03/27/23 04/18/23 History Multivitamin [Multivitamins Adult 1 tab PO DAILY 03/27/23 04/18/23 History Gummies] Allergies Allergy/AdvReac Type Severity Reaction Status Date / Time acetaminophen Allergy Rash/Hives Verified 04/18/23 11:48 [From Darvocet-N 100] propoxyphene Allergy Rash/Hives Verified 04/18/23 11:48 [From Darvocet-N 100] amitriptyline [From Elavil] AdvReac NIGHTMARES Verified 04/18/23 11:48 hydralazine AdvReac MIGRAINES Verified 04/18/23 11:48 naproxen [From Naprosyn] AdvReac Nausea Verified 04/18/23 11:48 Physical Exam Vitals: Vital Signs Temp Pulse Resp BP Pulse Ox 04/25/23 08:00 97.8 F 106 H 18 117/75 96 04/25/23 03:15 98.5 F 98 18 119/76 93 L 04/24/23 23:26 98 F 90 22 120/75 95 04/24/23 20:00 97.6 F 109 H 22 115/70 04/24/23 16:00 98.2 F 90 18 113/69 92 L Intake and Output 04/24/23 04/25/23 04/25/23 22:59 06:59 14:59 Intake Total 571.613 250 Output Total 800 Balance -228.387 250 Intake: Intake, IV Titration 211.613 Amount Heparin Sod,Pork in 0.45% 211.613 NaCl 25,000 unit In 0.45 % NaCl 1 250ml.bag @ 12 UNITS/KG/HR 9.471 mls/hr IV .Q24H [facility] Rx#: [id number] Oral 360 250 Output: Urine 800 Other: Voiding Method Toilet Toilet Toilet Urinal Urinal Urinal Weight 81.6 kg Physical Examinations : -Constitutiona : Cooperative , not in acute distress . -HEENT : nech : supple , no Lymphadenopathy , normal thyroid size . : eyes : no ptosis , no icterus, no photophobia . - neurologic : Cranial nerve II to XII intact , no focal neurological deffecit . -psychatric : alert , oriented X 3 , appropriate affect , intact judgment and insight . -Lymphatic : no Lymphadenopathy . - musculoskeltal : Lumber spine moter stegnth lower extremities ,thigh and legs 4/5 Right side , 4/5 Left side deep tendon reflexes : normal Knee Jerk , normal ankle Jerk lumber facet Loading Test =positive Right , positive Left Range of motion of the lumbar spine Flexion 30 degrees, extension 10 degrees strait leg raising test = positive at 45 degree Fabere test= positive Right , and positive LT . tenderness over the Sacroiliac joint on the Right , and Left sides Results CBC & Chem 7: 04/25/23 06:37 04/25/23 06:37 Labs: Abnormal Lab Results - Last 24 Hours (Table) 04/24/23 04/24/23 04/25/23 Range/Units 15:41 17:13 06:37 RBC 3.84 L (4.30-5.90) m/uL Hgb 10.4 L (13.0-17.5) gm/dL Hct 31.1 L (39.0-53.0) % RDW 17.1 H (11.5-15.5) % APTT 52.8 H 44.2 H (22.0-30.0) sec Sodium (137-145) mmol/L Potassium (3.5-5.1) mmol/L Chloride (98-107) mmol/L Carbon Dioxide (22-30) mmol/L BUN (9-20) mg/dL Creatinine (0.66-1.25) mg/dL Glucose (74-99) mg/dL Total Bilirubin (0.2-1.3) mg/dL Total Protein (6.3-8.2) g/dL Albumin (3.5-5.0) g/dL 12/28/23 12/28/23 Range/Units 06:37 06:37 RBC 3.58 L (4.30-5.90) m/uL Hgb 9.8 L (13.0-17.5) gm/dL Hct 29.0 L (39.0-53.0) % RDW 16.9 H (11.5-15.5) % APTT (22.0-30.0) sec Sodium 131 L (137-145) mmol/L Potassium 3.2 L (3.5-5.1) mmol/L Chloride 88 L (98-107) mmol/L Carbon Dioxide 33 H (22-30) mmol/L BUN 5 L (9-20) mg/dL Creatinine 0.61 L (0.66-1.25) mg/dL Glucose 115 H (74-99) mg/dL Total Bilirubin 1.6 H (0.2-1.3) mg/dL Total Protein 5.9 L (6.3-8.2) g/dL Albumin 3.3 L (3.5-5.0) g/dL Comments: MRI of the lumbar spine done in November 2022= 2 level lumbar degenerative disc disease and multilevel foraminal stenosis Assessment and Plan Plan: Assessment and Plan (1) Abdominal pain Patient being evaluated by gastrointestinal services (2) Cancer, metastatic (3) Microcytic hypochromic anemia (4) Afib (5) acute on chronic low back pain, secondary to lumbar degenerative disc disease and lumbar foraminal stenosis. Patient currently on IV heparin, and the heparin was stopped for 4 hours we will evaluate the PTT, it fits within the normal limit then we will proceed with lumbar epidural steroid injection at L5-S1. It will be done as an inpatient today , it will be very difficult to arrange to do the procedure as an outpatient because patient currently on Coumadin and her Coumadin was stopped for more than 1 week, and to arrange to hold Coumadin it will be very difficult to do with as an outpatient, procedure risk and benefits discussed with the patient and he agreed with the preceding Time with Patient: Greater than 30 PQRS Measure Charge Sheet - Pain Location Abdomen Non-Pharmacological Interventions: Heat, Ice, Position/Reposition Pharmacological Interventions: PRN Medication Left Hip Non-Pharmacological Interventions: Heat, Ice, Position/Reposition Pharmacological Interventions: PRN Medication Lower Back Non-Pharmacological Interventions: Heat, Ice, Position/Reposition Pharmacological Interventions: PRN Medication Pain Comment: see MAR pain assessment. PQRS Narrative: Blood Pressure [Left Arm] 117/75 Blood Pressure [Right Arm] 138/75 Blood Pressure 140/82 Pain Intensity [Lower Back] 0 Pain Intensity [Left Hip] 10 Pain Intensity [Abdomen] 10 Pain Intensity 10 Pain Scale Used Numeric (1 - 10) Scale Used Numeric (1 - 10) Hx Alcohol Use (MH) Yes Home Medications: Ambulatory Orders Aspirin [Children's Aspirin] 81 mg PO DAILY 11/11/22 Omeprazole 20 mg PO DAILY 11/11/22 Warfarin [Coumadin] 7.5 mg PO MOWEFR@209911/11/22 Warfarin [Coumadin] 10 mg PO SUTUTHSA@209911/11/22 amLODIPine [Norvasc] 5 mg PO BID 11/11/22 Albuterol Inhaler [Ventolin Hfa Inhaler] 2 puff INHALATION RT-Q6H PRN 01/29/23 Furosemide [Lasix] 40 mg PO DAILY 30 Days #30 tab 02/05/23 Metoprolol Tartrate [Lopressor] 12.5 mg PO BID 03/27/23 Multivitamin [Multivitamins Adult Gummies] 1 tab PO DAILY 03/27/23
--- NOTE | 2023-04-25 12:33 | P.PN ---
Subjective Progress Note Date: 04/25/23 No acute events. Reporting improved pain control today after fentanyl increased to 25mcg. Pt scheduled for epidural for left sided sciatica today. Spoke with IM and cardiology, heparin will be held prior to procedure, and coumadin will be resumed tonight. Objective - Vital Signs Vital signs: Vital Signs Temp 97.8 F 04/25/23 08:00 Pulse 106 H 04/25/23 08:00 Resp 18 04/25/23 08:00 BP 117/75 04/25/23 08:00 Pulse Ox 96 04/25/23 08:00 FiO2 Intake & Output 04/24/23 04/25/23 04/25/23 18:59 06:59 18:59 Intake Total 885.162 211.613 250 Output Total 1050 500 Balance -164.838 -288.387 250 Weight 81.6 kg Intake: Intake, IV Titration 285.162 211.613 Amount Diltiazem 125 mg In 8.167 Sodium Chloride 0.9% 100 ml @ 5 MG/HR 5 mls/hr IV .Q24H [facility] Rx#:[id number] Heparin Sod,Pork in 0.45% 276.995 211.613 NaCl 25,000 unit In 0.45 % NaCl 1 250ml.bag @ 12 UNITS/KG/HR 9.471 mls/hr IV .Q24H [facility] Rx#: [id number] Oral 600 250 Output: Urine 1050 500 Other: Voiding Method Toilet Toilet Toilet Urinal Urinal Urinal - Constitutional General appearance: Present: average body habitus, no acute distress - EENT Eyes: Present: anicteric sclerae, EOMI ENT: Present: hearing grossly normal - Respiratory Details: breathing is even and unlabored - Cardiovascular Details: skin warm and dry - Gastrointestinal General gastrointestinal: Present: soft. Absent: tenderness - Integumentary Integumentary: Absent: cyanotic - Neurologic Neurologic Comment(s): grossly intact - Musculoskeletal Musculoskeletal: Present: strength equal bilaterally - Psychiatric Psychiatric: Present: A&O x's 3 - Labs CBC & Chem 7: 04/25/23 06:37 04/25/23 06:37 Labs: Abnormal Lab Results - Last 24 Hours (Table) 04/24/23 04/24/23 04/25/23 Range/Units 15:41 17:13 06:37 RBC 3.84 L (4.30-5.90) m/uL Hgb 10.4 L (13.0-17.5) gm/dL Hct 31.1 L (39.0-53.0) % RDW 17.1 H (11.5-15.5) % APTT 52.8 H 44.2 H (22.0-30.0) sec Sodium (137-145) mmol/L Potassium (3.5-5.1) mmol/L Chloride (98-107) mmol/L Carbon Dioxide (22-30) mmol/L BUN (9-20) mg/dL Creatinine (0.66-1.25) mg/dL Glucose (74-99) mg/dL Total Bilirubin (0.2-1.3) mg/dL Total Protein (6.3-8.2) g/dL Albumin (3.5-5.0) g/dL 04/25/23 04/25/23 Range/Units 06:37 06:37 RBC 3.58 L (4.30-5.90) m/uL Hgb 9.8 L (13.0-17.5) gm/dL Hct 29.0 L (39.0-53.0) % RDW 16.9 H (11.5-15.5) % APTT (22.0-30.0) sec Sodium 131 L (137-145) mmol/L Potassium 3.2 L (3.5-5.1) mmol/L Chloride 88 L (98-107) mmol/L Carbon Dioxide 33 H (22-30) mmol/L BUN 5 L (9-20) mg/dL Creatinine 0.61 L (0.66-1.25) mg/dL Glucose 115 H (74-99) mg/dL Total Bilirubin 1.6 H (0.2-1.3) mg/dL Total Protein 5.9 L (6.3-8.2) g/dL Albumin 3.3 L (3.5-5.0) g/dL Assessment and Plan (1) Abdominal pain Current Visit: Yes Status: Acute Priority: High Code(s): R10.9 - UNSPECIFIED ABDOMINAL PAIN SNOMED Code(s): 82686632 (2) Microcytic hypochromic anemia Current Visit: Yes Status: Acute Priority: High Code(s): D50.9 - IRON DEFICIENCY ANEMIA, UNSPECIFIED SNOMED Code(s): 70998378 (3) Afib Current Visit: Yes Status: Chronic Priority: Medium Code(s): I48.91 - UNSPECIFIED ATRIAL FIBRILLATION SNOMED Code(s): 30295183 (4) Metastatic lung cancer (metastasis from lung to other site) Current Visit: Yes Status: Acute Priority: High Code(s): C34.90 - MALIGNANT NEOPLASM OF UNSP PART OF UNSP BRONCHUS OR LUNG SNOMED Code(s): 88239941 Plan: #Abdominal pain -Noted to have been present for at least 1 to 2 months prior to initial presentation -This was progressive in nature and eventually became more painful than sciatica of the left leg, which was the main source of pain -He did note melanotic stool over the past week -He has had fatigue with night sweats -Physical exam was significant for right cervical and bilateral supraclavicular lymphadenopathy in addition to palpable soft tissue mass just posterior to the lower portion of the right axilla -Exam was also notable for palpable lump to lesion in the left lower quadrant -CT abdomen/pelvis on admission was notable for pleural-based lesion in the righ t lower lobe, bilateral adrenal gland nodules, 2 left kidney nodules, soft tissue mass near the spleen, retroperitoneal lymphadenopathy, and abdominal wall nodules in the left lower quadrant and right lower quadrant suspicious for malignancy -From a malignancy standpoint, we discussed pursuing biopsy to help confirm diagnosis of malignancy -LDH elevated at 429. CEA mildly elevated at 28 -His abdominal pain is stable and improved from admission -Biopsy of the soft tissue mass posterior to the right axilla was performed on 04/19/2023. Spoke with pathology dept, both right axilla and duodenal biopsy revealed metastatic lung adenocarcinoma Metastatic lung adenocarcinoma: -Biopsy of right axilla and duodenum revealed metastatic lung adenocarcinoma -Will request NGS and PDL-1 testing -Brain MRI ordered for staging -F/u will be scheduled upon discharge to further discuss results, goals of care and treatment options #Sciatica -Noted to be in the left lower back extending down the left leg causing significant discomfort -Currently, he notes this is the main source of his pain as opposed to the abdominal pain present on admission -He has received Dilaudid 1 mg IV every 2 hours [id number] and noted improvement in pain, but quick offset -We did discuss potentially having epidural steroid injection -Baclofen 5 mg every 8 hours as needed was added on 04/20/2023 -Fentanyl 12 mcg transdermal every 72 hours was also added on 04/20/2023. Pt was reporting pain was not being well controlled, dose was increased to 25 mcg. Reporting better pain control today. Will transition to oral pain meds for continue to monitor -Interventional pain management consulted. Pt scheduled for epidural for left sided sciatica today. Spoke with IM and cardiology, heparin will be held prior to procedure, and coumadin will be resumed tonight. #Microcytic hypochromic anemia -He has reported melanotic stool for a week prior to admission -Hemoglobin 11.4 on admission with MCV 77.4 -There is concern for iron deficiency secondary to GI blood loss -Iron studies consistent with SHARON. IV iron started . No vitamin B12 or folate deficiency noted -Hemoglobin is currently stable with no further melena or hematochezia since admission -GI consulted, s/p endoscopic evaluation 04/23. EGD revealed a 6 mm and a 1.65 cm ulcerated raised polypoid lesion in the second part of the duodenum with multiple biopsies obtained. Colonoscopy revealed 1 cm broad-based ascending colon polyp status post polypectomy #Atrial fibrillation, CAD -Underwent MARY JO with cardioversion on 04/16/2023 -Holding warfarin and aspirin and continuing with heparin drip. Plan to transition to coumadin today -Went into a-fib rvr s/p endoscopy. Transferred to cardiac unit, cardiology consulted -Continue remainder of cardiac regimen per primary team/cardiology
[2023-04-25] MEDS: HYDROcodone/APAP 7.5-325MG 1 EACH TAB PO PRN ×3 (13:20→21:59)
[2023-04-25] MEDS ORDERED: RX INFO: IV CONTRAST WAS GIVEN 1 EACH MISC MISCELLANE PRN (13:50)
[2023-04-25 14:14] VITALS: BMI 23.7
[2023-04-25] MEDS ORDERED: POTASSIUM CHLORIDE ER 20 MEQ TAB.ER PO STA (14:41)
--- NOTE | 2023-04-25 14:44 | P.PN ---
Subjective Progress Note Date: 04/25/23 Hospital Course: Patient is a very pleasant 63-year-old male with a past medical history of chronic atrial fibrillation status post cardiac ablation 04/16/23, thoracic aortic aneurysm status post repair, aortic valve regurgitation status post mechanical valve replacement on Coumadin, hypertension, hyperlipidemia, and chronic lower back pain. He presented to the emergency department on 04/18/23 secondary to reports of epigastric/abdominal pain, dark black tarry stools, and persistent intractable lower back pain with sciatica down his left leg. Upon arrival to the ER patient underwent full evaluation. Vital signs upon arrival show blood pressure 139/91, heart rate 92, respiratory rate 18, temp 98.7F, SpO2 of 99% on room air. EKG completed showing normal sinus rhythm at 84 bpm Labs completed and reviewed. CBC showing normocytic anemia with hemoglobin of 11.9. Coagulation profile showing therapeutic INR 3.0. BMP unremarkable. Lactic acid normal findings at 1.4. Magnesium slightly low at 1.7. Liver profile unremarkable. Troponin negative at less than 0.012 and proBNP of 305. Urinalysis was negative for blood, proteins, ketones, or infection. Ultrasound of the abdomen was completed showing no evidence of cholelithiasis or cholecystitis, no evidence of hydronephrosis, and reporting a hyperechoic area adjacent to the region of the left lobe of the liver posteriorly measuring 4.2 x 4.6 x 4.4 cm in diameter of unclear etiology recommending computed tomography scan for further evaluation. CT abdomen and pelvis with contrast was completed showing extensive metastatic disease/malignancy throughout the abdomen and pelvis and pleural-based metastasis in the right lung base. CT lumbar spine showing no acute osseous abnormalities seen throughout the lumbar spine and no suspicious bony lesions. Patient was admitted under our services with consultation to hematology/oncology secondary to concerns of metastatic process. Order also placed for consult cardiology for evaluation and recommendations on holding anticoagulation with mechanical valve for needed biopsies and surgical procedures. Per previous documentation in chart on 11/13/[address] of abdomen done at [facility] on 11/11/22 which revealed cholelithiasis without evidence of cholecystitis and a hiatal hernia, but reported to be negative for acute intra-abdominal process. Right Axillary mass/enlarged firm lymph node, IR was consulted and patient underwent biopsy on 04/19/23. Patient was taken for EGD and colonoscopy on 04/23/23. On 04/23/23 shortly after EGD and colonoscopy patient went back into atrial fibrillation with RVR. Physical exam: Patient seen and fully evaluated at bedside this morning. Patient reports total control of previous reported nausea and states his pain is currently controlled as well at this time. Changed Compazine ordered previously from scheduled to as needed as patient is no longer with persistent uncontrolled nausea. Patient did have episode of atrial fibrillation with RVR yesterday evening shortly after completion of EGD and colonoscopy. He was already back on heparin infusion and was started on Cardizem infusion for rate control. Vital signs reviewed and stable. General: Nontoxic, no distress and appears stated age. Derm: Skin warm and dry, normal coloration for ethnicity. Head: Atraumatic, normocephalic and symmetric. Eyes: EOMs intact, no lid lag, and anicteric sclera Mouth: no lip lesions, mucus membranes moist Cardiovascular: Irregularly irregular, systolic murmur, positive posterior tibial pulses bilaterally, and cap refill < 2 seconds. Enlarged Supraclavicular lymph nodes palpated Lungs: Respirations even, regular, and unlabored on room air. Lungs CTA bilaterally, no rhonchi, no rales, no wheezing, and no accessory muscle usage. Abdominal: soft, tenderness reported to the epigastric and right upper quadrant region upon palpation. Ext: RNo gross muscle atrophy, no edema, no contractures. Patient with large firm mass/enlarged lymph node right axillary region Neuro: Speech clear, face symmetrical and CN II-XII grossly intact with no noted focal neuro deficits Psych: Alert and oriented to person, place, time, and situation. Appropriate and pleasant affect. Assessment and Plan of Care: Atrial fibrillation with RVR Chest pain, tachycardia, and postoperative hypoxia secondary to above episode Abdominal pain, abnormal CT findings concerning for extensive metastatic process throughout abdomen, pelvis, and right lung base Melena x 1 week, resolved Microcytic anemia, stable Aortic Mechanical valve replacement History of chronic atrial fibrillation with a slowed ventricular response status post ablation 04/16/23, now maintaining sinus mechanism HFrEF with EF of 35-40% History of thoracic aortic aneurysm status post repair Hypertension Hyperlipidemia Mild nonobstructive coronary artery disease -CT abdomen and pelvis with contrast was completed showing extensive metastatic disease/malignancy throughout the abdomen and pelvis and pleural-based metastasis in the right lung base. -Right Axillary mass/enlarged firm lymph node. IR was consulted and patient underwent biopsy on 04/19/23. -Oncology following, discussed plan of care with oncology [employer] regarding successful pain control status post increasing dose of fentanyl patch to 25 g per hour -Gastroenterology following, and took patient for EGD and colonoscopy on 04/23/23 where patient was found to have a 6 mm at 1.5 cm ulcerated raised polypoid lesion in the second part of the duodenum and underwent biopsies as well as 1 cm colon polyp status post polypectomy. -Cardiology following, reviewed documentation in chart. Cardiology increased metoprolol to 75 mg twice daily and starting patient back on Coumadin while bridging with heparin until INR is therapeutic. -Pain management following him a taking patient for epidural injection later today. Epling being positive for hours prior to procedure and 2 hours after, this was discussed with cardiology and okayed. Patient to resume Coumadin tonight. -Metoprolol was increased to 75 mg twice a day. Patient remains in atrial fibrillation with a controlled ventricular rate 70s to 90s. -Patient to remain on continuous Telemetry monitoring -Continue GI Prophylaxis with Protonix 40 mg IVP twice daily -Microcytic anemia: Transfuse if Hg < 7. Ferric gluconate 125 mg IV was given and patient completed 3 day course. Hemoglobin stable at 9.7. -Aortic Mechanical valve replacement: Patient was started back on Coumadin and we will Continue heparin drip (goal therapeutic range of 44-79 seconds) while bridging until reaching therapeutic INR of 2.5 -Follow up on biopsy/pathology results once available. Data and imaging reviewed: -Vital signs reviewed. Blood pressure 117/75, heart rate 106, respiratory rate 18, temp 97.8F, and SpO2 of 96% on 3 L. -Labs completed and reviewed. CBC continues to show stable normocytic anemia with hemoglobin of 9.8. BMP showing hyponatremia with sodium 131, hypokalemia with potassium of 3.2, hyperchloremia with chloride of 33, hypercarbia with bicarbonate 33, and magnesium of 1.6. Liver profile showing elevated total bili of 1.6. Order placed for K Dur 40 mEq by mouth 1 dose and magnesium sulfate 2 g IVPB. CODE STATUS: Full code DVT prophylaxis: Heparin infusion and will bridge back to Coumadin once patient is cleared by hematology and gastroenterology to resume. Anticipated discharge date: Clinical course to determine Anticipated discharge place: Clinical course to determine Patient was seen independently by Nurse Practitioner. This document was prepared using [employer] dictation software. Please allow for errors in medical management trainer while rare they do occur. Objective - Vital Signs Vital signs: Vital Signs Temp 97.8 F 04/25/23 08:00 Pulse 106 H 04/25/23 08:00 Resp 18 04/25/23 08:00 BP 117/75 04/25/23 08:00 Pulse Ox 96 04/25/23 08:00 FiO2 Intake & Output 04/24/23 04/25/23 04/25/23 18:59 06:59 18:59 Intake Total 885.162 211.613 Output Total 1050 500 Balance -164.838 -288.387 Weight 81.6 kg Intake: Intake, IV Titration 285.162 211.613 Amount Diltiazem 125 mg In 8.167 Sodium Chloride 0.9% 100 ml @ 5 MG/HR 5 mls/hr IV .Q24H ROB Rx#:[id number] Heparin Sod,Pork in 0.45% 276.995 211.613 NaCl 25,000 unit In 0.45 % NaCl 1 250ml.bag @ 12 UNITS/KG/HR 9.471 mls/hr IV .Q24H ROB Rx#: [id number] Oral 600 Output: Urine 1050 500 Other: Voiding Method Toilet Toilet Toilet Urinal Urinal Urinal - Labs CBC & Chem 7: 04/25/23 06:37 04/25/23 06:37 Labs: Abnormal Lab Results - Last 24 Hours (Table) 04/24/23 04/24/23 04/24/23 Range/Units 09:07 15:41 17:13 RBC 3.84 L (4.30-5.90) m/uL Hgb 10.4 L (13.0-17.5) gm/dL Hct 31.1 L (39.0-53.0) % RDW 17.1 H (11.5-15.5) % APTT 42.1 H 52.8 H (22.0-30.0) sec Sodium (137-145) mmol/L Potassium (3.5-5.1) mmol/L Chloride (98-107) mmol/L Carbon Dioxide (22-30) mmol/L BUN (9-20) mg/dL Creatinine (0.66-1.25) mg/dL Glucose (74-99) mg/dL Total Bilirubin (0.2-1.3) mg/dL Total Protein (6.3-8.2) g/dL Albumin (3.5-5.0) g/dL 04/25/23 04/25/23 04/25/23 Range/Units 06:37 06:37 06:37 RBC 3.58 L (4.30-5.90) m/uL Hgb 9.8 L (13.0-17.5) gm/dL Hct 29.0 L (39.0-53.0) % RDW 16.9 H (11.5-15.5) % APTT 44.2 H (22.0-30.0) sec Sodium 131 L (137-145) mmol/L Potassium 3.2 L (3.5-5.1) mmol/L Chloride 88 L (98-107) mmol/L Carbon Dioxide 33 H (22-30) mmol/L BUN 5 L (9-20) mg/dL Creatinine 0.61 L (0.66-1.25) mg/dL Glucose 115 H (74-99) mg/dL Total Bilirubin 1.6 H (0.2-1.3) mg/dL Total Protein 5.9 L (6.3-8.2) g/dL Albumin 3.3 L (3.5-5.0) g/dL
[2023-04-25] MEDS ORDERED: IOPAMIDOL M200 10 ML VIAL ONE (14:51)
[2023-04-25] MEDS ORDERED: methylPREDNISolone ACETATE 80 MG/ML 1 ML VIAL ONE (14:51)
--- NOTE | 2023-04-25 14:57 | P.PCN ---
Date of Procedure: 04/25/23 Procedure(s) Performed: PREOPERATIVE DIAGNOSIS: 1- Lumbar Degenerative Disc Diseases 2-lumbar spinal stenosis POSTOPERATIVE DIAGNOSIS: 1-lumbar degenerative disc disease. 2-lumbar spinal stenosis. PROCEDURE 1. Lumbar epidural steroid injection under fluoroscopic guidance at the L5-S1 level. (Fluoroscopy imaging was available in radiology department) 2. Lumbar epidurogram. ANESTHESIA: Lidocaine 1% 3 and then only. EBL: Minimal PROCEDURE INDICATION: The patient with low back pain and radiculitis symptoms unresponsive to conservative treatment. Fluoroscopy was used to optimize visualization of the needle placement and to maximize safety. PROCEDURE DESCRIPTION / TECHNIQUE: The patient was seen and identified in the preoperative area. Risks, benefits, complications including but not limited to infections ,bleeding ,allergic reaction to the medications ,nerve damage and not complete pain releife , and alternatives were discussed with the patient. The patient agreed to proceed with the procedure and signed the consent, and vital signs were stable. Patient was taken to the OR and time out was completed. The patient was placed in the prone position on procedure table and a pillow was placed under the abdomen to reduce lumbar lordosis. The lumbosacral area was prepped and draped in the usual sterile fashion.ere closely monitored during the procedure. Vital signs was monitered during the entire procedure. Using anterior-posterior fluoroscopy, the L5-S1 interlaminar space was identified and the skin over this site was marked and then infiltrated with 1% lidocaine subcutaneously. Subsequently, a 20-gauge Tuohy epidural needle was inserted and advanced toward the epidural space using the ``Loss of resistance technique and guided by AP and lateral fluoroscopy. The correct needle position in the epidural space was verified with the injection of 2 mL of the water soluble contrast dye Isovue 200 contrast and observing an excellent epidurogram with the epidural spread of the dye, after negative aspiration for blood and CSF and in the absence of paresthesias. Again after negative aspiration, a 6 ml mixture containing 80 mg of Depo-medrol ( Preservetive Free ), and 2 ml of preservative free Normal Saline, and 2 ml of preservative free lidocaine 1% solution was injected and a washout of epidurogram was seen. Needle was withdrawn intact, skin was cleansed, and bandages were applied. COMPLICATIONS: None DISPOSITION / PLANS: The patient was placed in a supine position and transferred to the recovery area in a stable condition for observation. There was no evidence of lower extremity motor or sensory deficit after the procedure. Patient was discharged from the recovery room after meeting discharge criteria. Home discharge instructions were given to the patient by the staff. The patient was reexamined prior to discharge. The patient will schedule a follow up in the clinic in 2-4 weeks. PTT, PT ,INR was within normal limits
[2023-04-25] MEDS: MAGNESIUM SULFATE-D5W PMX 1 GM in DEXTROSE/WATER 1 100ML.BAG IVPB SCH ×2 (16:53→16:54)
--- NOTE | 2023-04-25 16:56 | FL ---
EXAMINATION TYPE: FL guided pain mgmt statistic Intraoperative/procedural fluoroscopic services were provided. Total fluoroscopy time is 2.5 seconds with a total of 1 submitted images to PACS. Please se e the operative/procedural note for further details. DAP: [id number] mGym2
[2023-04-25] MEDS: SODIUM CHLORIDE 0.9% 1,000 ML IV SCH (17:02)
[2023-04-25] MEDS ORDERED: WARFARIN 10 MG TAB PO ONE (18:00)
[2023-04-25] MEDS ORDERED: WARFARIN 2 MG TAB PO ONE (18:00)
[2023-04-25] MEDS: METOPROLOL TARTRATE 50 MG TAB PO SCH (18:39)
[2023-04-26] MEDS: HYDROcodone/APAP 7.5-325MG 1 EACH TAB PO PRN ×2 (00:22→06:18)
[2023-04-26] MEDS: HEPARIN SOD,PORK IN 0.45% NACL 25,000 UNIT in 0.45% NACL 1 250ML.BAG IV SCH ×2 (01:48→22:01)
[2023-04-26] MEDS: SODIUM CHLORIDE 0.9% 1,000 ML IV SCH (01:49)
[2023-04-26 08:23] LABS: Anisocytosis Slight; HCT 31.6 % (39.0-53.0); HGB 10.5 gm/dL (13.0-17.5); Hypochromasia Slight; MCH 27.4 pg (25.0-35.0); MCHC 33.2 g/dL (31.0-37.0); MCV 82.5 fL (80.0-100.0); Mean Platelet Volume 8.4; Platelet Count 403 k/uL (150-450); Poikilocytosis Slight; RBC 3.83 m/uL (4.30-5.90); WBC 8.5 k/uL (3.8-10.6)
[2023-04-26 08:32] LABS: INR 1.3 (<1.2); Prothrombin Time 13.6 sec (10.0-12.5)
[2023-04-26 08:50] LABS: ALT 16 U/L (4-49); AST 23 U/L (17-59); African American GFR (CKD) >90 (>60 ml/min/1.73 sqM); Albumin 3.6 g/dL (3.5-5.0); Alkaline Phosphatase 77 U/L (38-126); Anion Gap 10 mmol/L; Blood Urea Nitrogen 4 mg/dL (9-20); Calcium 9.1 mg/dL (8.4-10.2); Carbon Dioxide 33 mmol/L (22-30); Chloride 91 mmol/L (98-107); Glucose 149 mg/dL (74-99); Magnesium 1.9 mg/dL (1.6-2.3); Non-African American GFR(CKD) >90 (>60 ml/min/1.73 sqM); Potassium 3.5 mmol/L (3.5-5.1); Sodium 134 mmol/L (137-145); Total Bilirubin 1.2 mg/dL (0.2-1.3); Total Protein 6.4 g/dL (6.3-8.2)
[2023-04-26] MEDS: METOPROLOL TARTRATE 25 MG TAB PO SCH ×2 (08:53→22:02)
[2023-04-26] MEDS: PANTOPRAZOLE 40 MG/10 ML VIAL IV SCH ×2 (08:53→22:03)
[2023-04-26] MEDS: MULTIVITAMINS, THERA 1 EACH TAB PO SCH (08:53)
--- NOTE | 2023-04-26 09:57 | CT ---
EXAMINATION TYPE: CT chest w con CT DLP: 460.6 mGycm, Automated exposure control for dose reduction was used. DATE OF EXAM: 04/26/2023 7:06 AM COMPARISON: CT abdomen 04/18/2023 . CLINICAL INDICATION:Male, 63 years old with history of metastatic lung cancer, staging; [facility], Cancer TECHNIQUE: Multiple axial images were obtained through the chest. Sagittal and coronal reformats were created for review. Contrast used:100ml mL of Isovue 300 with IV Contrast (None if empty) Oral contrast used: (None if empty) FINDINGS: LOWER NECK: Visualized thyroid is unremarkable. HEART: Normal in size. Moderate coronary artery calcifications. Radiodensity suggesting aortic valve prosthesis. No pericardial effusion or nodularity. VASCULATURE: Three-vessel aortic arch with mild/moderate calcification. No aortic aneurysm or dissec tion. The main pulmonary artery is not enlarged. Left pulmonary artery is unremarkable without eviden ce of filling defect. On the right, the upper lobe artery and branches are significantly narrowed by surrounding soft tissue mass about 2 cm beyond its origin. No intrinsic filling defects are seen. Mas s also surrounds and mildly narrows the right middle and lower lobe arteries with mild narrowing. MEDIASTINUM: There is extensive adenopathy. In the superior mediastinum just inferior to the thyroid is a lymph node measuring 20 mm in short axis on the right image 6 series 201. Left-sided node is 17 mm image 8. Prevascular node on the left 21 mm short axis. Right paratracheal node 27 mm in short axi s, extends in contiguity with soft tissue mass/adenopathy to the right hilum and right subcarinal/sub bronchial, the largest portions measuring 80 x 63 mm image 28, and 56 x 35 mm subcarinal/infrahilar i mage 34. Left inferior paratracheal node 21 mm short axis. Soft tissue thickening in the left hilum s uggestive of adenopathy however not easily measurable. Other smaller mediastinal nodes are also prese nt. Moderate sized hiatal hernia; the wall appears somewhat thickened and irregular concerning for po ssible neoplastic involvement. LUNGS/ PLEURA: Small pleural effusions, right larger than left, new since 04/18/2023. Compressive ate lectasis adjacent to the effusions, the previous pleural-based nodule on the right is obscured. There is extensive groundglass opacity throughout the left upper lobe with numerous interspersed nodular d ensities present up to 16 x 13 mm image 15 series 205. Left lower lobe shows a few small nodules, one of the largest 7 mm on image 36. Right upper lobe shows milder groundglass opacity mostly posteriorl y abutting the oblique fissure. Associated nodular densities are present, largest portion of which is 19 x 16 mm image 22. Nodule in the inferior upper lobe is 13 x 10 mm image 30. Mild generalized thic kening of the fissures is present. Mild groundglass haziness in the superior right lower lobe adjacen t to the conglomerate hilar mass and continuing posteriorly. There is a 5 mm nodule in the right lowe r lobe on image 41. AIRWAY: Central airways are patent. There is some narrowing of the right bronchial branches in the hi lar region by surrounding soft tissue mass without intrinsic defect seen. MUSCULOSKELETAL: Sternotomy wires are present. No evidence of lytic/blastic bony lesion in the chest . Mild degenerative changes of the thoracic spine. SOFT TISSUES: Enlarged right axillary node measures 22 mm short axis. Soft tissue implant right upper arm laterally abutting the musculature measures 16 mm short axis. Mild bilateral gynecomastia. UPPER ABDOMEN: Now better seen is extensive heterogeneity of the liver concerning for diffuse metasta tic involvement. Spleen is also enlarged and heterogeneous, may be metastatically involved. Otherwise , multiple soft tissue masses and adenopathy in the upper abdomen described previously show no signif icant change. Cholelithiasis redemonstrated. Mild atherosclerotic disease of the upper abdominal aort a and branches. IMPRESSION: 1. Extensive mediastinal and right hilar soft tissue masses/adenopathy, consistent with metastatic d isease. 2. Enlarged right axillary node and soft tissue implant in the lateral right upper arm, consistent w ith metastases. 3. Small bilateral pleural effusions, new since 04/18/2023. 4. Multiple bilateral pulmonary nodules and areas of groundglass opacity, greatest in the left upper lobe, consistent with metastases, with possible pneumonitis. 5. Right hilar mass surrounds and narrows branches of the right pulmonary artery, especially the rig ht upper lobe. Also mild narrowing of the bronchi. 6. Moderate sized hiatal hernia; the wall appears somewhat thickened and irregular concerning for po ssible neoplastic involvement. 7. Extensive upper abdominal metastatic disease, which likely involves the liver and spleen.
[2023-04-26] MEDS: HYDROcodone/APAP 10-325MG 1 EACH TAB PO PRN ×3 (12:29→22:03)
--- NOTE | 2023-04-26 12:41 | P.PN ---
Subjective HISTORY OF PRESENT ILLNESS: This is a 63-year-old male with a past medical history significant for paroxysmal atrial fibrillation, mild nonobstructive CAD, hypertension, hyperlipidemia, On-X mechanical aortic valve replacement in September 2019 secondary to bicuspid aortic valve, and ascending aortic aneurysm status post bessy-arch repair. Patient follows in the office with Dr. Venegas. We have been asked to see the patient in consultation for anticoagulation management. Patient examined at the bedside. Patient recently underwent outpatient MARY JO and cardioversion on 04/16/[address] Venegas with successful conversion to sinus mechanism. The patient states over the past few days he has been having pain in his left hip and his lower back. He states that a couple days ago he noticed a lump in his right axilla region which had not previously been there. He also reports a few days ago he woke up with pain in the middle of his chest and then diffuse abdominal pain. He also reports having black stools for the past week. He currently denies any chest pain or pressure. He denies any shortness of breath. The patient states that he quit drinking alcohol in January and has lost some weight since that time which he treated to not drinking. He is a former cigarette smoker and quit smoking 10 years ago. * EKG reveals sinus mechanism with no signs of acute ischemia * Current home cardiac medications include aspirin 81 mg daily, Lasix 40 mg daily, metoprolol tartrate 12.5 mg twice a day, Norvasc 5 mg twice a day, warf mike 7.5 mg Saturday and 10 mg Saturday * Most recent echocardiogram obtained in January 2023 revealed ejection fraction 35-40% with normally functioning mechanical aortic valve * Cardiac catheterization history: 2019 at the [facility] revealing left main 20-30% stenosis, diagonal 1 20% stenosis, OM 20%, and RCA 20% 04/24/2023 Cardiology was reconsulted secondary to tachycardia, chest pain, and hypoxia. Patient is status post endoscopy yesterday. He is also status post right axilla biopsy. Results are pending. The patient states yesterday after his endoscopy he felt short of breath. He was given a dose of IV Lasix 1 with improvement in his breathing. He denies any chest pain or pressure at the time of examination. The patient was also found to be in A. fib with RVR. He was started on IV Cardizem. This morning he remains in atrial fibrillation with a heart rate in the 70s to 80s. He remains on IV Cardizem at 10 mg an hour. He remains on IV heparin. His Coumadin has been on hold secondary to endoscopy yesterday. 04/25/2023 Patient examined this morning at the bedside. Patient currently denies chest pain or pressure. He reports mild shortness of breath. Telemetry reveals atrial fibrillation with a heart rate around 120. He remains on IV heparin. 04/26/2023 Patient examined this morning at the bedside. Patient currently denies chest pain or pressure. He denies shortness of breath. Telemetry reveals atrial fibrillation with controlled ventricular rate. Patient remains on IV heparin. He underwent epidural steroid injection yesterday with anesthesia. He was resumed on Coumadin last night. INR today 1.3. PHYSICAL EXAM: VITAL SIGNS: Reviewed. GENERAL: Well-developed in no acute distress. HEENT: Head is normocephalic. Pupils are equal, round. Sclerae anicteric. Mucous membranes of the mouth are moist. Neck supple. No JVD or thyromegaly LUNGS: Respirations even and unlabored. Lungs essentially clear to auscultation bilaterally. HEART: Irregular rate and rhythm. S1 and S2 heard. ABDOMEN: Soft. Nondistended. Nontender. EXTREMITIES: Normal range of motion. No clubbing or cyanosis. Peripheral pulses intact. No lower extremity edema NEUROLOGIC: Awake and alert. Oriented x 3. ASSESSMENT: Abdominal pain, CT scan revealing extensive metastatic disease throughout abdomen and pelvis and pleural-based metastasis and right lung base Melena x 1 week, status post endoscopy Right axilla mass, status post biopsy Bicuspid aortic valve, status post On-X mechanical aortic valve replacement in September 2019, [facility] 2019 Mild nonobstructive CAD per cardiac catheterization, [facility] 2019 Nonischemic cardiomyopathy, ejection fraction 35-40% Paroxysmal atrial fibrillation Status post MARY JO and cardioversion 04/16/2023 Ascending aortic aneurysm, s/p bessy-arch repair Hypertension Hyperlipidemia Former nicotine dependence PLAN: Continue IV heparin Coumadin has been resumed. Monitor INR. Heparin may be discontinued when INR is therapeutic Continue telemetry monitoring. Metoprolol increased yesterday. We will sign off. Please reconsult if needed. Nurse practitioner note has been reviewed by physician. Signing provider agrees with the documented findings, assessment, and plan of care. Objective - Vital Signs Vital signs: Vital Signs Temp 97.8 F 04/26/23 04:00 Pulse 92 04/26/23 04:00 Resp 18 04/26/23 04:00 BP 116/77 04/26/23 04:00 Pulse Ox 85 L 04/26/23 11:24 FiO2 Intake & Output 04/25/23 04/26/23 04/26/23 18:59 06:59 18:59 Intake Total 900 120 Output Total 900 2200 Balance 0 -2200 120 Weight 81.6 kg Intake: Intake, IV Titration 250 Amount Heparin Sod,Pork in 0.45% 250 NaCl 25,000 unit In 0.45 % NaCl 1 250ml.bag @ 12 UNITS/KG/HR 9.471 mls/hr IV .Q24H [facility] Rx#: [id number] Oral 650 120 Output: Urine 900 2200 Other: Voiding Method Toilet Toilet Urinal Urinal - Labs CBC & Chem 7: 04/26/23 07:39 04/26/23 07:35 Labs: Abnormal Lab Results - Last 24 Hours (Table) 04/26/23 04/26/23 04/26/23 Range/Units 00:10 07:35 07:39 RBC (4.30-5.90) m/uL Hgb (13.0-17.5) gm/dL Hct (39.0-53.0) % RDW (11.5-15.5) % PT 13.6 H (10.0-12.5) sec INR 1.3 H (<1.2) APTT 46.1 H (22.0-30.0) sec Sodium 134 L (137-145) mmol/L Chloride 91 L (98-107) mmol/L Carbon Dioxide 33 H (22-30) mmol/L BUN 4 L (9-20) mg/dL Creatinine 0.54 L (0.66-1.25) mg/dL Glucose 149 H (74-99) mg/dL 04/26/23 Range/Units 07:39 RBC 3.83 L (4.30-5.90) m/uL Hgb 10.5 L (13.0-17.5) gm/dL Hct 31.6 L (39.0-53.0) % RDW 17.0 H (11.5-15.5) % PT (10.0-12.5) sec INR (<1.2) APTT (22.0-30.0) sec Sodium (137-145) mmol/L Chloride (98-107) mmol/L Carbon Dioxide (22-30) mmol/L BUN (9-20) mg/dL Creatinine (0.66-1.25) mg/dL Glucose (74-99) mg/dL
--- NOTE | 2023-04-26 12:55 | P.PN ---
Subjective Progress Note Date: 04/26/23 No acute events. Reporting improved pain control in left lower back/LLE s/p lumbar epidural. Reporting increased RLQ abd pain. Pt continues on fentanyl patch. Was changed to norco 7.5mg prn for breakthrough pain. States he is getting little improvement in pain with norco. Will increase dose to 10mg. Plan to transition to coumadin today Objective - Vital Signs Vital signs: Vital Signs Temp 97.8 F 04/26/23 04:00 Pulse 92 04/26/23 04:00 Resp 18 04/26/23 04:00 BP 116/77 04/26/23 04:00 Pulse Ox 85 L 04/26/23 11:24 FiO2 Intake & Output 04/25/23 04/26/23 04/26/23 18:59 06:59 18:59 Intake Total 900 120 Output Total 900 2200 Balance 0 -2200 120 Weight 81.6 kg Intake: Intake, IV Titration 250 Amount Heparin Sod,Pork in 0.45% 250 NaCl 25,000 unit In 0.45 % NaCl 1 250ml.bag @ 12 UNITS/KG/HR 9.471 mls/hr IV .Q24H [facility] Rx#: [id number] Oral 650 120 Output: Urine 900 2200 Other: Voiding Method Toilet Toilet Urinal Urinal - Constitutional General appearance: Present: average body habitus, no acute distress - EENT Eyes: Present: anicteric sclerae, EOMI ENT: Present: hearing grossly normal - Respiratory Details: breathing is even and unlabored - Cardiovascular Details: skin warm and dry, well-perfused - Gastrointestinal General gastrointestinal: Present: soft, tenderness Localized gastrointestinal: tender: RLQ - Integumentary Integumentary: Absent: cyanotic, jaundiced - Neurologic Neurologic Comment(s): grossly intact - Psychiatric Psychiatric: Present: A&O x's 3 - Labs CBC & Chem 7: 04/26/23 07:39 04/26/23 07:35 Labs: Abnormal Lab Results - Last 24 Hours (Table) 04/26/23 04/26/23 04/26/23 Range/Units 00:10 07:35 07:39 RBC (4.30-5.90) m/uL Hgb (13.0-17.5) gm/dL Hct (39.0-53.0) % RDW (11.5-15.5) % PT 13.6 H (10.0-12.5) sec INR 1.3 H (<1.2) APTT 46.1 H (22.0-30.0) sec Sodium 134 L (137-145) mmol/L Chloride 91 L (98-107) mmol/L Carbon Dioxide 33 H (22-30) mmol/L BUN 4 L (9-20) mg/dL Creatinine 0.54 L (0.66-1.25) mg/dL Glucose 149 H (74-99) mg/dL 04/26/23 Range/Units 07:39 RBC 3.83 L (4.30-5.90) m/uL Hgb 10.5 L (13.0-17.5) gm/dL Hct 31.6 L (39.0-53.0) % RDW 17.0 H (11.5-15.5) % PT (10.0-12.5) sec INR (<1.2) APTT (22.0-30.0) sec Sodium (137-145) mmol/L Chloride (98-107) mmol/L Carbon Dioxide (22-30) mmol/L BUN (9-20) mg/dL Creatinine (0.66-1.25) mg/dL Glucose (74-99) mg/dL - Imaging and Cardiology CT scan - chest: report reviewed Assessment and Plan (1) Abdominal pain Current Visit: Yes Status: Acute Priority: High Code(s): R10.9 - UNSPECIFIED ABDOMINAL PAIN SNOMED Code(s): 17560593 (2) Microcytic hypochromic anemia Current Visit: Yes Status: Acute Priority: High Code(s): D50.9 - IRON DEFICIENCY ANEMIA, UNSPECIFIED SNOMED Code(s): 00901714 (3) Afib Current Visit: Yes Status: Chronic Priority: Medium Code(s): I48.91 - UNSPECIFIED ATRIAL FIBRILLATION SNOMED Code(s): 60290022 (4) Metastatic lung cancer (metastasis from lung to other site) Current Visit: Yes Status: Acute Priority: High Code(s): C34.90 - MALIGNANT NEOPLASM OF UNSP PART OF UNSP BRONCHUS OR LUNG SNOMED Code(s): 84520551 Plan: #Abdominal pain -Noted to have been present for at least 1 to 2 months prior to initial presentation -This was progressive in nature and eventually became more painful than sciatica of the left leg, which was the main source of pain -He did note melanotic stool over the past week -He has had fatigue with night sweats -Physical exam was significant for right cervical and bilateral supraclavicular lymphadenopathy in addition to palpable soft tissue mass just posterior to the lower portion of the right axilla -Exam was also notable for palpable lump to lesion in the left lower quadrant -CT abdomen/pelvis on admission was notable for pleural-based lesion in the rig ht lower lobe, bilateral adrenal gland nodules, 2 left kidney nodules, soft tissue mass near the spleen, retroperitoneal lymphadenopathy, and abdominal wall nodules in the left lower quadrant and right lower quadrant suspicious for malignancy -From a malignancy standpoint, we discussed pursuing biopsy to help confirm diagnosis of malignancy -LDH elevated at 429. CEA mildly elevated at 28 -Biopsy of the soft tissue mass posterior to the right axilla was performed on 04/19/2023. Spoke with pathology dept, both right axilla and duodenal biopsy revealed metastatic lung adenocarcinoma Metastatic lung adenocarcinoma: -Biopsy of right axilla and duodenum revealed metastatic lung adenocarcinoma -Will request NGS and PDL-1 testing -Brain MRI and CT chest ordered for staging. MRI brain pending. CT chest revealed extensive mediastinal and right hilar soft tissue masses/adenopathy. A large right axillary node and soft tissue implant in the lateral right upper arm. Multiple bilateral pulmonary nodules and areas of groundglass opacity greatest in the left upper lobe. Right hilar mass surrounds and narrows branches of the right pulmonary artery especially in the right upper lobe, also mild narrowing of the bronchi. Moderate size hiatal hernia, de guzman appear somewhat thickened and irregular concerning for possible neoplastic involvement. Extensive upper abdominal metastatic disease which likely involves the liver and spleen -F/u will be scheduled upon discharge to further discuss results, goals of care and treatment options #Sciatica -Noted to be in the left lower back extending down the left leg causing significant discomfort -Currently, he notes this is the main source of his pain as opposed to the abdominal pain present on admission -He has received Dilaudid 1 mg IV every 2 hours [id number] and noted improvement in pain, but quick offset -We did discuss potentially having epidural steroid injection -Baclofen 5 mg every 8 hours as needed was added on 04/20/2023 -Fentanyl 12 mcg transdermal every 72 hours was also added on 04/20/2023. Pt was reporting pain was not being well controlled, dose was increased to 25 mcg. Reporting better pain control with this dose. Diluadid d/c, started on [place] 7.5 prn. Reporting minimal relief with norco for breakthrough pain. Will increase dose to 10mg. -Interventional pain management consulted for left sided sciatica. S/p lumbar epidural, reporting improvement in pain. #Microcytic hypochromic anemia -He has reported melanotic stool for a week prior to admission -Hemoglobin 11.4 on admission with MCV 77.4 -There is concern for iron deficiency secondary to GI blood loss -Iron studies consistent with SHARON. IV iron started . No vitamin B12 or folate deficiency noted -Hemoglobin is currently stable with no further melena or hematochezia since admission -GI consulted, s/p endoscopic evaluation 04/23. EGD revealed a 6 mm and a 1.65 cm ulcerated raised polypoid lesion in the second part of the duodenum with multiple biopsies obtained. Colonoscopy revealed 1 cm broad-based ascending colon polyp status post polypectomy #Atrial fibrillation, CAD -Underwent MARY JO with cardioversion on 04/16/2023 -Holding warfarin and aspirin and continuing with heparin drip. Plan to transition to coumadin today -Went into a-fib rvr s/p endoscopy. Transferred to cardiac unit, cardiology consulted -Continue remainder of cardiac regimen per primary team/cardiology
--- NOTE | 2023-04-26 13:42 | P.PN ---
Subjective Progress Note Date: 04/26/23 Hospital Course: Patient is a very pleasant 63-year-old male with a past medical history of chronic atrial fibrillation status post cardiac ablation 04/16/23, thoracic aortic aneurysm status post repair, aortic valve regurgitation status post mechanical valve replacement on Coumadin, hypertension, hyperlipidemia, and chronic lower back pain. He presented to the emergency department on 04/18/23 secondary to reports of epigastric/abdominal pain, dark black tarry stools, and persistent intractable lower back pain with sciatica down his left leg. Upon arrival to the ER patient underwent full evaluation. Vital signs upon arrival show blood pressure 139/91, heart rate 92, respiratory rate 18, temp 98.7F, SpO2 of 99% on room air. EKG completed showing normal sinus rhythm at 84 bpm Labs completed and reviewed. CBC showing normocytic anemia with hemoglobin of 11.9. Coagulation profile showing therapeutic INR 3.0. BMP unremarkable. Lactic acid normal findings at 1.4. Magnesium slightly low at 1.7. Liver profile unremarkable. Troponin negative at less than 0.012 and proBNP of 305. Urinalysis was negative for blood, proteins, ketones, or infection. Ultrasound of the abdomen was completed showing no evidence of cholelithiasis or cholecystitis, no evidence of hydronephrosis, and reporting a hyperechoic area adjacent to the region of the left lobe of the liver posteriorly measuring 4.2 x 4.6 x 4.4 cm in diameter of unclear etiology recommending computed tomography scan for further evaluation. CT abdomen and pelvis with contrast was completed showing extensive metastatic disease/malignancy throughout the abdomen and pelvis and pleural-based metastasis in the right lung base. CT lumbar spine showing no acute osseous abnormalities seen throughout the lumbar spine and no suspicious bony lesions. Patient was admitted under our services with consultation to hematology/oncology secondary to concerns of metastatic process. Order also placed for consult cardiology for evaluation and recommendations on holding anticoagulation with mechanical valve for needed biopsies and surgical procedures. Per previous documentation in chart on 11/13/[address] of abdomen done at [facility] on 11/11/22 which revealed cholelithiasis without evidence of cholecystitis and a hiatal hernia, but reported to be negative for acute intra-abdominal process. Right Axillary mass/enlarged firm lymph node, IR was consulted and patient underwent biopsy on 04/19/23. Patient was taken for EGD and colonoscopy on 04/23/23. On 04/23/23 shortly after EGD and colonoscopy patient went back into atrial fibrillation with RVR. Physical exam: Patient seen and fully evaluated at bedside this morning. Patient does report improvement of pain and was sitting up on side of bed this morning. Patient reports back pain much better controlled today. He does report overall soreness but states better controlled today than it has been. Patient was updated with his diagnosis of metastatic lung adenocarcinoma and undergoing further testing this morning for staging. CT chest was completed and patient is scheduled to go down for MRI later this morning. Patient denies having any other needs or complaints at this time. Vital signs reviewed and stable. General: Nontoxic, no distress and appears stated age. Derm: Skin warm and dry, normal coloration for ethnicity. Head: Atraumatic, normocephalic and symmetric. Eyes: EOMs intact, no lid lag, and anicteric sclera Mouth: no lip lesions, mucus membranes moist Cardiovascular: Irregularly irregular, systolic murmur, positive posterior tibial pulses bilaterally, and cap refill < 2 seconds. Enlarged Supraclavicular lymph nodes palpated Lungs: Respirations even, regular, and unlabored on room air. Lungs CTA bilaterally, no rhonchi, no rales, no wheezing, and no accessory muscle usage. Abdominal: soft, tenderness reported to the epigastric and right upper quadrant region upon palpation. Ext: RNo gross muscle atrophy, no edema, no contractures. Patient with large firm mass/enlarged lymph node right axillary region Neuro: Speech clear, face symmetrical and CN II-XII grossly intact with no noted focal neuro deficits Psych: Alert and oriented to person, place, time, and situation. Appropriate and pleasant affect. Assessment and Plan of Care: Metastatic lung adenocarcinoma Atrial fibrillation with RVR Chest pain, tachycardia, and postoperative hypoxia secondary to above episode Melena x 1 week, resolved Microcytic anemia, stable History of Aortic Mechanical valve replacement History of chronic atrial fibrillation with a slowed ventricular response status post ablation 04/16/23 was maintaining normal sinus mechanism until 04/23/23 HFrEF with EF of 35-40% History of thoracic aortic aneurysm status post repair Hypertension Hyperlipidemia Mild nonobstructive coronary artery disease -CT abdomen and pelvis with contrast was completed showing extensive metastatic disease/malignancy throughout the abdomen and pelvis and pleural-based metastasis in the right lung base. -Right Axillary mass/enlarged firm lymph node. IR was consulted and patient underwent biopsy on 04/19/23. Biopsy results positive for metastatic lung adenocarcinoma -Oncology following, discussed plan of care with oncology DREDGE OPERATOR. Stated they are going to obtain MRI brain and a CT chest. -Gastroenterology following, and took patient for EGD and colonoscopy on 04/23/23 where patient was found to have a 6 mm at 1.5 cm ulcerated raised polypoid lesion in the second part of the duodenum and underwent biopsies as well as 1 cm colon polyp status post polypectomy. -Cardiology following, reviewed documentation in chart. Cardiology restarted pt on Coumadin while bridging with heparin until INR is therapeutic. -Pain management following and took patient for epidural injection later today. Epling being positive for hours prior to procedure and 2 hours after, this was discussed with cardiology and okayed. Patient to resume Coumadin tonight. -Metoprolol was increased to 75 mg twice a day. Patient remains in atrial fibrillation with a controlled ventricular rate 70s to 90s. -Patient to remain on continuous Telemetry monitoring -Continue GI Prophylaxis with Protonix 40 mg IVP twice daily -Microcytic anemia: Transfuse if Hg < 7. Ferric gluconate 125 mg IV was given and patient completed 3 day course. Hemoglobin stable at 10.5 -Aortic Mechanical valve replacement: Patient was started back on Coumadin and we will Continue heparin drip (goal therapeutic range of 44-79 seconds) while bridging until reaching therapeutic INR of 2.5 -Pathology results are available and were discussed with oncology. Patient has metastatic lung adenocarcinoma. Acute on chronic lower back pain with left-sided sciatica Pain management was consulted and patient was taken for epidural injection on 04/25/23. Data and imaging reviewed: -Vital signs reviewed. Blood pressure 117/81, heart rate 106, respiratory rate 18, temperature 97.7F, SpO2 of 97% on 3 L. -Labs completed and reviewed. CBC showing stable normocytic anemia with hemoglobin of 10.5. INR remains subtherapeutic at 1.3 however patient does remain on heparin infusion in addition to Coumadin until INR becomes therapeutic. BMP showing no significant abnormalities with the exception of hypochloremia with chloride of 91 and hypercarbia with bicarb of 33. CODE STATUS: Full code DVT prophylaxis: Heparin infusion and will bridge back to Coumadin once patient is cleared by hematology and gastroenterology to resume. Anticipated discharge date: Clinical course to determine Anticipated discharge place: Clinical course to determine Patient was seen independently by Nurse Practitioner. This document was prepared using [employer] dictation software. Please allow for errors in well reactivator operator while rare they do occur. Elio Lucio DREDGE OPERATOR rendered care for this patient independently, reviewed the findings and plan as documented in the note above. I did not physically speak with or examine the patient on this date. Objective - Vital Signs Vital signs: Vital Signs Temp 97.8 F 04/26/23 04:00 Pulse 92 04/26/23 04:00 Resp 18 04/26/23 04:00 BP 116/77 04/26/23 04:00 Pulse Ox 98 04/26/23 04:00 FiO2 Intake & Output 04/25/23 04/26/23 04/26/23 18:59 06:59 18:59 Intake Total 900 Output Total 900 2200 Balance 0 -2200 Weight 81.6 kg Intake: Intake, IV Titration 250 Amount Heparin Sod,Pork in 0.45% 250 NaCl 25,000 unit In 0.45 % NaCl 1 250ml.bag @ 12 UNITS/KG/HR 9.471 mls/hr IV .Q24H [facility] Rx#: [id number] Oral 650 Output: Urine 900 2200 Other: Voiding Method Toilet Toilet Urinal Urinal - Labs CBC & Chem 7: 04/26/23 07:39 04/26/23 07:35 Labs: Abnormal Lab Results - Last 24 Hours (Table) 04/26/23 04/26/23 Range/Units 00:10 07:39 RBC 3.83 L (4.30-5.90) m/uL Hgb 10.5 L (13.0-17.5) gm/dL Hct 31.6 L (39.0-53.0) % RDW 17.0 H (11.5-15.5) % APTT 46.1 H (22.0-30.0) sec
[2023-04-26] MEDS ORDERED: WARFARIN 10 MG TAB PO ONE (18:00)
[2023-04-27] MEDS: HYDROcodone/APAP 10-325MG 1 EACH TAB PO PRN ×6 (02:46→22:09)
[2023-04-27 09:05] LABS: Anisocytosis Slight; HCT 31.2 % (39.0-53.0); HGB 10.4 gm/dL (13.0-17.5); Hypochromasia Slight; MCH 27.9 pg (25.0-35.0); MCHC 33.4 g/dL (31.0-37.0); MCV 83.3 fL (80.0-100.0); Mean Platelet Volume 9.1; Platelet Count 472 k/uL (150-450); Poikilocytosis Slight; RBC 3.74 m/uL (4.30-5.90); RDW 17.2 % (11.5-15.5); WBC 8.9 k/uL (3.8-10.6)
[2023-04-27] MEDS: PANTOPRAZOLE 40 MG/10 ML VIAL IV SCH ×2 (09:17→21:02)
[2023-04-27] MEDS: MULTIVITAMINS, THERA 1 EACH TAB PO SCH (09:17)
[2023-04-27] MEDS: METOPROLOL TARTRATE 25 MG TAB PO SCH ×2 (09:17→21:02)
[2023-04-27 09:20] LABS: INR 2.4 (<1.2); Prothrombin Time 23.6 sec (10.0-12.5)
[2023-04-27 09:26] LABS: ALT 18 U/L (4-49); AST 25 U/L (17-59); African American GFR (CKD) >90 (>60 ml/min/1.73 sqM); Albumin 3.7 g/dL (3.5-5.0); Alkaline Phosphatase 70 U/L (38-126); Anion Gap 12 mmol/L; Blood Urea Nitrogen 4 mg/dL (9-20); Calcium 9.4 mg/dL (8.4-10.2); Carbon Dioxide 31 mmol/L (22-30); Chloride 93 mmol/L (98-107); Glucose 111 mg/dL (74-99); Magnesium 1.6 mg/dL (1.6-2.3); Non-African American GFR(CKD) >90 (>60 ml/min/1.73 sqM); Potassium 3.3 mmol/L (3.5-5.1); Sodium 136 mmol/L (137-145); Total Bilirubin 0.9 mg/dL (0.2-1.3); Total Protein 6.5 g/dL (6.3-8.2)
[2023-04-27] MEDS ORDERED: POTASSIUM CHLORIDE ER 20 MEQ TAB.ER PO STA (10:53)
[2023-04-27] MEDS: MAGNESIUM SULFATE-D5W PMX 1 GM in DEXTROSE/WATER 1 100ML.BAG IVPB SCH ×2 (11:14→12:36)
[2023-04-27] MEDS: HEPARIN SOD,PORK IN 0.45% NACL 25,000 UNIT in 0.45% NACL 1 250ML.BAG IV SCH (11:14)
--- NOTE | 2023-04-27 11:16 | P.PN ---
Subjective Progress Note Date: 04/27/23 Hospital Course: Patient is a very pleasant 63-year-old male with a past medical history of chronic atrial fibrillation status post cardiac ablation 04/16/23, thoracic aortic aneurysm status post repair, aortic valve regurgitation status post mechanical valve replacement on Coumadin, hypertension, hyperlipidemia, and chronic lower back pain. He presented to the emergency department on 04/18/23 secondary to reports of epigastric/abdominal pain, dark black tarry stools, and persistent intractable lower back pain with sciatica down his left leg. Upon arrival to the ER patient underwent full evaluation. Vital signs upon arrival show blood pressure 139/91, heart rate 92, respiratory rate 18, temp 98.7F, SpO2 of 99% on room air. EKG completed showing normal sinus rhythm at 84 bpm Labs completed and reviewed. CBC showing normocytic anemia with hemoglobin of 11.9. Coagulation profile showing therapeutic INR 3.0. BMP unremarkable. Lactic acid normal findings at 1.4. Magnesium slightly low at 1.7. Liver profile unremarkable. Troponin negative at less than 0.012 and proBNP of 305. Urinalysis was negative for blood, proteins, ketones, or infection. Ultrasound of the abdomen was completed showing no evidence of cholelithiasis or cholecystitis, no evidence of hydronephrosis, and reporting a hyperechoic area adjacent to the region of the left lobe of the liver posteriorly measuring 4.2 x 4.6 x 4.4 cm in diameter of unclear etiology recommending computed tomography scan for further evaluation. CT abdomen and pelvis with contrast was completed showing extensive metastatic disease/malignancy throughout the abdomen and pelvis and pleural-based metastasis in the right lung base. CT lumbar spine showing no acute osseous abnormalities seen throughout the lumbar spine and no suspicious bony lesions. Patient was admitted under our services with consultation to hematology/oncology secondary to concerns of metastatic process. Order also placed for consult cardiology for evaluation and recommendations on holding anticoagulation with mechanical valve for needed biopsies and surgical procedures. Per previous documentation in chart on 11/13/[address] of abdomen done at [facility] on 11/11/22 which revealed cholelithiasis without evidence of cholecystitis and a hiatal hernia, but reported to be negative for acute intra-abdominal process. Right Axillary mass/enlarged firm lymph node, IR was consulted and patient underwent biopsy on 04/19/23. Patient was taken for EGD and colonoscopy on 04/23/23. On 04/23/23 shortly after EGD and colonoscopy patient went back into atrial fibrillation with RVR. 04/25/23 patient was taken by pain management for spinal epidural injection for pain management of acute on chronic lower back pain with left-sided sciatica. Pathology results showing metastatic lung adenocarcinoma. Patient and his were updated on these findings by oncologist. Patient underwent CT chest and MRI brain for further evaluation and staging. CT chest was completed showing extensive mediastinal and right hilar soft tissue masses/adenopathy consistent with metastatic disease, enlarged right axillary node and soft tissue implants in the lateral right upper arm consistent with metastasis, small bilateral pleural effusions, multiple bilateral pulmonary nodules and areas of groundglass opacities greater in the left upper lobe consistent with metastasis, right hilar mass surrounding in narrowing branches of the right pulmonary artery especially in the right upper lobe with mild narrowing of the bronchi, moderate size hiatal hernia appearing somewhat thickened and irregular concerning for possible neoplastic involvement, and extensive upper abdominal metastatic disease likely involving the liver and spleen. MRI brain was completed yesterday and results/radiology report is still pending. Physical exam: Patient seen and fully evaluated at bedside this morning. Patient reports mild nausea this morning otherwise denies any new complaints. Patient and his were updated that we are awaiting MRI results. Vital signs reviewed and stable. General: Nontoxic, no distress and appears stated age. Derm: Skin warm and dry, normal coloration for ethnicity. Head: Atraumatic, normocephalic and symmetric. Eyes: EOMs intact, no lid lag, and anicteric sclera Mouth: no lip lesions, mucus membranes moist Cardiovascular: Irregularly irregular, systolic murmur, positive posterior tibial pulses bilaterally, and cap refill < 2 seconds. Enlarged Supraclavicular lymph nodes palpated Lungs: Respirations even, regular, and unlabored on room air. Lungs CTA bilaterally, no rhonchi, no rales, no wheezing, and no accessory muscle usage. Abdominal: soft, tenderness reported to the epigastric and right upper quadrant region upon palpation. Ext: RNo gross muscle atrophy, no edema, no contractures. Patient with large firm mass/enlarged lymph node right axillary region Neuro: Speech clear, face symmetrical and CN II-XII grossly intact with no noted focal neuro deficits Psych: Alert and oriented to person, place, time, and situation. Appropriate and pleasant affect. Assessment and Plan of Care: Metastatic lung adenocarcinoma Atrial fibrillation with RVR Chest pain, tachycardia, and postoperative hypoxia secondary to above episode Melena x 1 week, resolved Microcytic anemia, stable History of Aortic Mechanical valve replacement History of chronic atrial fibrillation with a slowed ventricular response status post ablation 04/16/23 was maintaining normal sinus mechanism until 04/23/23 HFrEF with EF of 35-40% History of thoracic aortic aneurysm status post repair Hypertension Hyperlipidemia Mild nonobstructive coronary artery disease -CT abdomen and pelvis with contrast was completed showing extensive metastatic disease/malignancy throughout the abdomen and pelvis and pleural-based metastasis in the right lung base. -CT chest was completed showing extensive mediastinal and right hilar soft tissue masses/adenopathy consistent with metastatic disease, enlarged right axillary node and soft tissue implants in the lateral right upper arm consistent with metastasis, small bilateral pleural effusions, multiple bilateral pulmonary nodules and areas of groundglass opacities greater in the left upper lobe consistent with metastasis, right hilar mass surrounding in narrowing branches of the right pulmonary artery especially in the right upper lobe with mild narrowing of the bronchi, moderate size hiatal hernia appearing somewhat thickened and irregular concerning for possible neoplastic involvement, and extensive upper abdominal metastatic disease likely involving the liver and spleen. -MRI brain was completed yesterday and results/radiology report is still pe nding. -Right Axillary mass/enlarged firm lymph node. IR was consulted and patient underwent biopsy on 04/19/23. Biopsy results positive for metastatic lung adenocarcinoma -Oncology following, discussed plan of care with oncology ART CLASS MODEL. Awaiting MRI brain results. -Gastroenterology evaluated and took patient for EGD and colonoscopy on 04/23/23 where patient was found to have a 6 mm at 1.5 cm ulcerated raised polypoid lesion in the second part of the duodenum and underwent biopsies as well as 1 cm colon polyp status post polypectomy. -Cardiology following, reviewed documentation in chart. Cardiology restarted pt on Coumadin while bridging with heparin until INR is therapeutic. -Pain management following and took patient for epidural injection 04/25/23. -Metoprolol was increased to 75 mg twice a day. Patient remains in atrial fibrillation with a controlled ventricular rate 70s to 90s. -Patient to remain on continuous Telemetry monitoring -Continue GI Prophylaxis with Protonix 40 mg IVP twice daily -Microcytic anemia: Transfuse if Hg < 7. Ferric gluconate 125 mg IV was given and patient completed 3 day course. Hemoglobin stable at 10.4 -Aortic Mechanical valve replacement: Patient was started back on Coumadin and we will Continue heparin drip (goal therapeutic range of 44-79 seconds) while bridging until reaching therapeutic INR of 2.5 -Pathology results are available and were discussed with oncology. Patient has metastatic lung adenocarcinoma. Acute on chronic lower back pain with left-sided sciatica Pain management was consulted and patient was taken for epidural injection on 04/25/23. Data and imaging reviewed: -Vital signs reviewed. Blood pressure 130/77, heart rate 89, respiratory rate 18, temp 98.3 Fahrenheit, and SpO2 is 97% on 3 L O2 via nasal cannula. -Labs completed and reviewed. CBC showing stable normocytic anemia with hemoglobin of 10.4 and mild thrombocytosis with platelet count of 472. INR 2.4 this morning. BMP showing mild hypokalemia with potassium of 3.3 and magnesium also slightly low 1.6. Orders placed for K Dur 40 mEq by mouth 1 dose and mag sulfate 2 g IVPB 1 dose. -CT chest was completed showing extensive mediastinal and right hilar soft tissu e masses/adenopathy consistent with metastatic disease, enlarged right axillary node and soft tissue implants in the lateral right upper arm consistent with metastasis, small bilateral pleural effusions, multiple bilateral pulmonary nodules and areas of groundglass opacities greater in the left upper lobe consistent with metastasis, right hilar mass surrounding in narrowing branches of the right pulmonary artery especially in the right upper lobe with mild narrowing of the bronchi, moderate size hiatal hernia appearing somewhat thickened and irregular concerning for possible neoplastic involvement, and extensive upper abdominal metastatic disease likely involving the liver and spleen. -MRI brain was completed yesterday and results/radiology report is still pending. CODE STATUS: Full code DVT prophylaxis: Heparin infusion and will bridge back to Coumadin once patient is cleared by hematology and gastroenterology to resume. Anticipated discharge date: Likely within the next [address]: Home Patient was seen independently by Nurse Practitioner. This document was prepared using [employer] dictation software. Please allow for errors in mica miner while rare they do occur. Elio Lucio NP rendered care for this patient independently, reviewed the findings and plan as documented in the note above. I did not physically speak with or examine the patient on this date. Objective - Vital Signs Vital signs: Vital Signs Temp 97.8 F 04/26/23 15:39 Pulse 86 04/27/23 04:00 Resp 18 04/27/23 04:00 BP 132/71 04/27/23 04:00 Pulse Ox 98 04/27/23 04:00 FiO2 Intake & Output 04/26/23 04/27/23 04/27/23 18:59 06:59 18:59 Intake Total 3460 Output Total 1000 950 Balance 2460 -950 Intake: Intake, IV Titration 250 Amount Heparin Sod,Pork in 0.45% 250 NaCl 25,000 unit In 0.45 % NaCl 1 250ml.bag @ 12 UNITS/KG/HR 9.471 mls/hr IV .Q24H [facility] Rx#: [id number] Oral 3210 Output: Urine 1000 950 Other: Voiding Method Toilet Toilet Urinal Urinal - Labs CBC & Chem 7: 04/27/23 07:56 04/27/23 07:56 Labs: Abnormal Lab Results - Last 24 Hours (Table) 04/26/23 04/26/23 04/26/23 Range/Units 07:35 07:39 23:41 PT 13.6 H (10.0-12.5) sec INR 1.3 H (<1.2) APTT 49.2 H (22.0-30.0) sec Sodium 134 L (137-145) mmol/L Chloride 91 L (98-107) mmol/L Carbon Dioxide 33 H (22-30) mmol/L BUN 4 L (9-20) mg/dL Creatinine 0.54 L (0.66-1.25) mg/dL Glucose 149 H (74-99) mg/dL
--- NOTE | 2023-04-27 16:26 | MR ---
EXAMINATION TYPE: MR brain wo/w con DATE OF EXAM: 04/26/2023 1:50 PM CLINICAL INDICATION:Male, 63 years old with history of metastatic lung cancer, staging, Metastatic frances ng cancer. COMPARISON: None TECHNIQUE: Multi planar, multi sequence imaging was performed through the brain including: T1, T2, In version recovery, susceptibility weighted imaging and gradient echo imaging and Diffusion weighted im aging. The patient was then given intravenous contrast and multi planar, T1 fat-saturation images wer e obtained. IV Contrast: 8 cc Gadavist FINDINGS: Motion limited exam. Left occipital lobe blooming artifact series 501 image 89 with thin peripheral e nhancement measuring 5 mm series 701 image 76. The garces-white junctions, ventricular system, basal cisterns appear unremarkable. Diffusion-weighted imaging shows no evidence of restricted diffusion to suggest acute/subacute infarct. Intracranial ar terial flow voids are maintained. Midline structures show no abnormality. Scattered foci of high T2 s ignal intensity are seen within the periventricular white matter. Focus of microhemorrhage with yo ing artifact in the bilateral posterior frontal lobes. The bone marrow signal is within normal limits. Paranasal sinuses and mastoid air cells: No significant paranasal sinus disease. Visualized orbits: Orbital contents are intact. IMPRESSION: 1. Left occipital lobe peripherally enhancing lesion with blooming artifact suspicious for metastati c focus with hemosiderin deposition suggesting prior hemorrhage. Consider short-term follow-up MRI in one to 2 months. 2. No evidence for acute/subacute infarct. 3. Nonspecific white matter changes, likely related to small vessel ischemic disease.
[2023-04-27] MEDS ORDERED: WARFARIN 2.5 MG TAB PO ONE (18:00)
[2023-04-28] MEDS: HYDROcodone/APAP 10-325MG 1 EACH TAB PO PRN ×3 (01:58→10:26)
[2023-04-28] MEDS ORDERED: MORPHINE SULFATE 2 MG/ML SYRINGE IVP STA (02:16)
[2023-04-28 07:55] LABS: INR 3.3 (<1.2)
[2023-04-28] MEDS: MULTIVITAMINS, THERA 1 EACH TAB PO SCH (08:17)
[2023-04-28] MEDS: PANTOPRAZOLE 40 MG/10 ML VIAL IV SCH (08:17)
[2023-04-28] MEDS: METOPROLOL TARTRATE 25 MG TAB PO SCH (08:17)
[2023-04-28 09:50] VITALS: BP 113/63; PULSE 90; RESP 16; TEMP 97.7
--- NOTE | 2023-04-28 10:08 | P.DS ---
Providers Date of admission: 04/18/23 12:22 Expected date of discharge: 04/28/23 Attending physician: Ahmet Smith MD Consults: 04/18/23 12:18 Consult Physician Routine Consulting Provider: Raz Baron Consult Reason/Comments: NewCA Do you want consulting provider notified?: Yes 04/18/23 17:35 Consult Physician Routine Consulting Provider: Rosa Antonio Consult Reason/Comments: Melena, newly found concerns of extensive metastatic process Do you want consulting provider notified?: Yes 04/19/23 08:07 Consult Physician Routine Consulting Provider: Shasha Toure Consult Reason/Comments: Sx Clearance and management of anticoag for mechanical valve Do you want consulting provider notified?: Yes 04/24/23 12:27 Consult Physician Routine Consulting Provider: Ty Aquino Consult Reason/Comments: eval for left sided sciatica/ epidural Do you want consulting provider notified?: Yes Primary care physician: [facility] Course: Discharge Diagnosis: Newly diagnosed Metastatic lung adenocarcinoma. Metastasis throughout abdomen, pelvis, and brain Atrial fibrillation with RVR, remains in atrial fibrillation with a controlled ventricular rate 70's-90's upon discharge. Chest pain, tachycardia, and postoperative hypoxia secondary to above episode Melena x 1 week, resolved Microcytic anemia, stable History of Aortic Mechanical valve replacement History of chronic atrial fibrillation with a slowed ventricular response status post ablation 04/16/23 was maintaining normal sinus mechanism until 04/23/23 HFrEF with EF of 35-40% History of thoracic aortic aneurysm status post repair Hypertension Hyperlipidemia Mild nonobstructive coronary artery disease Hospital Course: Patient is a very pleasant 63-year-old male with a past medical history of chronic atrial fibrillation status post cardiac ablation 04/16/23, thoracic aortic aneurysm status post repair, aortic valve regurgitation status post mechanical valve replacement on Coumadin, hypertension, hyperlipidemia, and chronic lower back pain. He presented to the emergency department on 04/18/23 secondary to reports of epigastric/abdominal pain, dark black tarry stools, and persistent intractable lower back pain with sciatica down his left leg. Upon arrival to the ER patient underwent full evaluation. Vital signs upon arrival show blood pressure 139/91, heart rate 92, respiratory rate 18, temp 98.7F, SpO2 of 99% on room air. EKG completed showing normal sinus rhythm at 84 bpm Labs completed and reviewed. CBC showing normocytic anemia with hemoglobin of 11.9. Coagulation profile showing therapeutic INR 3.0. BMP unremarkable. Lactic acid normal findings at 1.4. Magnesium slightly low at 1.7. Liver profile unremarkable. Troponin negative at less than 0.012 and proBNP of 305. Urinalysis was negative for blood, proteins, ketones, or infection. Ultrasound of the abdomen was completed showing no evidence of cholelithiasis or cholecystitis, no evidence of hydronephrosis, and reporting a hyperechoic area adjacent to the region of the left lobe of the liver posteriorly measuring 4.2 x 4.6 x 4.4 cm in diameter of unclear etiology recommending computed tomography scan for further evaluation. CT abdomen and pelvis with contrast was completed showing extensive metastatic disease/malignancy throughout the abdomen and pelvis and pleural-based metastasis in the right lung base. CT lumbar spine showing no acute osseous abnormalities seen throughout the lumbar spine and no suspicious bony lesions. Patient was admitted under our services with consultation to hematology/oncology secondary to concerns of metastatic process. Order also placed for consult cardiology for evaluation and recommendations on holding anticoagulation with mechanical valve for needed biopsies and surgical procedures. Per previous documentation in chart on 11/13/[address] of abdomen done at [facility] on 11/11/22 which revealed cholelithiasis without evidence of cholecystitis and a hiatal hernia, but reported to be negative for acute intra-abdominal process. Right Axillary mass/enlarged firm lymph node, IR was consulted and patient underwent biopsy on 04/19/23. Patient was taken for EGD and colonoscopy on 04/23/23. On 04/23/23 shortly after EGD and colonoscopy patient went back into atrial fibrillation with RVR. 04/25/23 patient was taken by pain management for spinal epidural injection for pain management of acute on chronic lower back pain with left-sided sciatica. Pathology results showing metastatic lung adenocarcinoma. Patient and his were updated on these findings by oncologist. Patient underwent CT chest and MRI brain for further evaluation and staging. CT chest was completed showing extensive mediastinal and right hilar soft tissue masses/adenopathy consistent with metastatic disease, enlarged right axillary node and soft tissue implants in the lateral right upper arm consistent with metastasis, small bilateral pleural effusions, multiple bilateral pulmonary nodules and areas of groundglass opacities greater in the left upper lobe consistent with metastasis, right hilar mass surrounding in narrowing branches of the right pulmonary artery especially in the right upper lobe with mild narrowing of the bronchi, moderate size hiatal hernia appearing somewhat thickened and irregular concerning for possible neoplastic involvement, and extensive upper abdominal metastatic disease likely involving the liver and spleen. MRI brain was completed 04/26/23. MRI reporting a left occipital lobe peripherally enhancing lesion with blooming artifact suspicious for metastatic focus with hemosiderin deposition suggesting prior hemorrhage with no evidence of acute or subacute infarct and nonspecific white matter changes likely related to small vessel ischemic disease. Discussed with oncology, they are recommending discharge home at this pain and follow-up in the office in 1-2 weeks for initiation of chemotherapy and immunotherapy once tumor genetics are resulted. Patient discharged home on oxygen. Oxygen was delivered to home and patient's room. 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 Patient is stable for discharge home with his family at this time, patient will require extensive further outpatient workup and management of newly diagnosed metastatic lung adenocarcinoma. Physical exam: Vital signs reviewed and stable. General: Nontoxic, no distress and appears stated age. Derm: Skin warm and dry, normal coloration for ethnicity. Head: Atraumatic, normocephalic and symmetric. Eyes: EOMs intact, no lid lag, and anicteric sclera Mouth: no lip lesions, mucus membranes moist Cardiovascular: Irregularly irregular, systolic murmur, positive posterior tibial pulses bilaterally, and cap refill < 2 seconds. Enlarged Supraclavicular lymph nodes palpated Lungs: Respirations even, regular, and unlabored on room air. Lungs CTA bilaterally, no rhonchi, no rales, no wheezing, and no accessory muscle usage. Abdominal: soft, tenderness reported to the epigastric and right upper quadrant region upon palpation. Ext: RNo gross muscle atrophy, no edema, no contractures. Patient with large firm mass/enlarged lymph node right axillary region Neuro: Speech clear, face symmetrical and CN II-XII grossly intact with no noted focal neuro deficits Psych: Alert and oriented to person, place, time, and situation. Appropriate and pleasant affect. A total of 45 minutes of time were spent preparing this complex discharge summary. Pt was discharged on 04/28/23 at 9:49 AM Patient was seen independently by Nurse Practitioner. This document was prepared using [employer] dictation software. Please allow for errors in chainstitch seat joiner while rare they do occur. Elio Lucio NP rendered care for this patient independently, reviewed the findings and plan as documented in the note above. I did not physically speak with or examine the patient on this date. Plan - Discharge Summary Discharge Rx Participant: Yes New Discharge Prescriptions: New HYDROcodone/APAP 10-325MG [[place] 10-325] 1 each PO Q4HR PRN #18 tab PRN Reason: Pain Prochlorperazine [Compazine] 10 mg PO Q6H PRN #60 tab PRN Reason: Nausea And Vomiting Metoprolol Tartrate [Lopressor] 75 mg PO BID 30 Days #180 tab Pantoprazole [Protonix] 40 mg PO DAILY 30 Days #30 tab oxyCODONE HCL [oxyCODONE HCL (IR)] 5 mg PO Q6H PRN 3 Days #12 cap PRN Reason: Severe Breakthrough Pain Baclofen [Lioresal] 5 mg PO TID PRN #60 tab PRN Reason: Muscle Spasm Continue Multivitamin [Multivitamins Adult Gummies] 1 tab PO DAILY Aspirin [Children's Aspirin] 81 mg PO DAILY Albuterol Inhaler [Ventolin Hfa Inhaler] 2 puff INHALATION RT-Q6H PRN PRN Reason: Shortness Of Breath Or Wheezing Changed Warfarin [Coumadin] 7.5 mg PO DAILY #0 Discontinued amLODIPine [Norvasc] 5 mg PO BID Furosemide [Lasix] 40 mg PO DAILY 30 Days #30 tab Metoprolol Tartrate [Lopressor] 12.5 mg PO BID Warfarin [Coumadin] 10 mg PO SUTUTHSA@2100 Omeprazole 20 mg PO DAILY Discharge Medication List Aspirin [Children's Aspirin] 81 mg PO DAILY 11/11/22 [History] Albuterol Inhaler [Ventolin Hfa Inhaler] 2 puff INHALATION RT-Q6H PRN 01/29/23 [History] Multivitamin [Multivitamins Adult Gummies] 1 tab PO DAILY 03/27/23 [History] HYDROcodone/APAP 10-325MG [[place] 10-325] 1 each PO Q4HR PRN #18 tab 04/27/23 [Rx] Baclofen [Lioresal] 5 mg PO TID PRN #60 tab 04/28/23 [Rx] Metoprolol Tartrate [Lopressor] 75 mg PO BID 30 Days #180 tab 04/28/23 [Rx] Pantoprazole [Protonix] 40 mg PO DAILY 30 Days #30 tab 04/28/23 [Rx] Prochlorperazine [Compazine] 10 mg PO Q6H PRN #60 tab 04/28/23 [Rx] Warfarin [Coumadin] 7.5 mg PO DAILY #0 04/28/23 [Rx] oxyCODONE HCL [oxyCODONE HCL (IR)] 5 mg PO Q6H PRN 3 Days #12 cap 04/28/23 [Rx] Follow up Appointment(s)/Referral(s): Ajith Venegas MD [Medical Doctor] - 1 Week (Call to set up appointment for 1 week ) Cher Nicole MD [STAFF PHYSICIAN] - 05/13/23 2[facility] - 1-2 days (Call to set up appointment for 1-2 days ) Patient Instructions/Handouts: Lung Cancer (DC) Activity/Diet/Wound Care/Special Instructions: Activity: As tolerated. Take breaks as needed. Diet: Heart healthy and carb consistent diet. Avoid salts, or foods with hidden salts such as canned or boxed foods and frozen dinners. Extra salt makes your heart work harder and traps the fluid in your body for longer. Special Instructions: Take all of your medications as directed and remember to keep all of your doctor's appointments and follow-up as needed. As discussed, Prescriptions have been sent to [facility] on and , a 3 day script for [place] 10/325 mg tablets every 4 hours as needed for pain was sent as requested by your oncology team and they will be sending an additional script on Saturday from their office. Oncologist did send prescription as previously discussed with you for the Fentanyl patches and per your reports these were picked up by your . Continue with warfarin/Coumadin 7.5 mg daily until follow up with your aerospace quality engineer next week for monitoring of your INR to ensure continued therapeutic INR between 2.5-3.5.. Thank you for allowing us to participate in your care, it was truly a pleasure having you for our patient!!! Discharge/Stand Alone Forms: Anes Pain/Wismer Instructions Discharge Disposition: HOME SELF-CARE
--- NOTE | 2023-04-28 14:30 | P.PN ---
Subjective Progress Note Date: 04/28/23 No acute events. Reporting improved pain control in left lower back/LLE s/p lumbar epidural. Also reporting RLQ abd pain has improved on current pain med regimen. Fentanyl and norco scripts have been sent to outpt pharmacy on file. Spoke with IM team regarding plan of care Objective - Vital Signs Vital signs: Vital Signs Temp 97.7 F 04/28/23 08:00 Pulse 90 04/28/23 08:00 Resp 16 04/28/23 08:00 BP 113/63 04/28/23 08:00 Pulse Ox 96 04/28/23 10:34 FiO2 Intake & Output 04/27/23 04/28/23 04/28/23 18:59 06:59 18:59 Intake Total 239.883 Output Total 0 1500 0 Balance 239.883 -1500 0 Intake: Intake, IV Titration 239.883 Amount Heparin Sod,Pork in 0.45% 239.883 NaCl 25,000 unit In 0.45 % NaCl 1 250ml.bag @ 12 UNITS/KG/HR 9.471 mls/hr IV .Q24H ROB Rx#: [id number] Oral 0 Output: Urine 1500 Stool 0 0 Other: Voiding Method Toilet Urinal # Bowel Movements 0 - Constitutional General appearance: Present: average body habitus, no acute distress - EENT Eyes: Present: anicteric sclerae, EOMI ENT: Present: hearing grossly normal - Respiratory Details: breathing even and unlabored - Cardiovascular Details: well perfused - Integumentary Integumentary: Present: rash. Absent: cyanotic - Neurologic Neurologic Comment(s): grossly intact - Musculoskeletal Musculoskeletal: Present: strength equal bilaterally - Psychiatric Psychiatric: Present: A&O x's 3 - Labs CBC & Chem 7: 04/27/23 07:56 04/27/23 07:56 Labs: Abnormal Lab Results - Last 24 Hours (Table) 04/28/23 Range/Units 06:24 PT 32.0 H (10.0-12.5) sec INR 3.3 H (<1.2) - Imaging and Cardiology MRI - head: report reviewed Assessment and Plan (1) Abdominal pain Status: Acute Priority: High Code(s): R10.9 - UNSPECIFIED ABDOMINAL PAIN SNOMED Code(s): 36581025 (2) Microcytic hypochromic anemia Status: Acute Priority: High Code(s): D50.9 - IRON DEFICIENCY ANEMIA, UNSPECIFIED SNOMED Code(s): 86272279 (3) Afib Status: Chronic Priority: Medium Code(s): I48.91 - UNSPECIFIED ATRIAL FIBRILLATION SNOMED Code(s): 19753442 (4) Metastatic lung cancer (metastasis from lung to other site) Status: Acute Priority: High Code(s): C34.90 - MALIGNANT NEOPLASM OF UNSP PART OF UNSP BRONCHUS OR LUNG SNOMED Code(s): 29504943 Plan: #Abdominal pain -Noted to have been present for at least 1 to 2 months prior to initial prese ntation -This was progressive in nature and eventually became more painful than sciatica of the left leg, which was the main source of pain -He did note melanotic stool over the past week -He has had fatigue with night sweats -Physical exam was significant for right cervical and bilateral supraclavicular lymphadenopathy in addition to palpable soft tissue mass just posterior to the lower portion of the right axilla -Exam was also notable for palpable lump to lesion in the left lower quadrant -CT abdomen/pelvis on admission was notable for pleural-based lesion in the right lower lobe, bilateral adrenal gland nodules, 2 left kidney nodules, soft tissue mass near the spleen, retroperitoneal lymphadenopathy, and abdominal wall nodules in the left lower quadrant and right lower quadrant suspicious for malignancy -From a malignancy standpoint, we discussed pursuing biopsy to help confirm diagnosis of malignancy -LDH elevated at 429. CEA mildly elevated at 28 -Biopsy of the soft tissue mass posterior to the right axilla was performed on 04/19/2023. Spoke with pathology dept, both right axilla and duodenal biopsy revealed metastatic lung adenocarcinoma Metastatic lung adenocarcinoma: -Biopsy of right axilla and duodenum revealed metastatic lung adenocarcinoma -Will request NGS and PDL-1 testing -Brain MRI and CT chest ordered for staging. CT chest revealed extensive mediastinal and right hilar soft tissue masses/adenopathy. A large right axillary node and soft tissue implant in the lateral right upper arm. Multiple bilateral pulmonary nodules and areas of groundglass opacity greatest in the left upper lobe. Right hilar mass surrounds and narrows branches of the right pulmonary artery especially in the right upper lobe, also mild narrowing of the bronchi. Moderate size hiatal hernia, de guzman appear somewhat thickened and irregular concerning for possible neoplastic involvement. Extensive upper abdominal metastatic disease which likely involves the liver and spleen Brain MRI revealed left occipital lobe peripherally enhancing lesion with blooming artifact suspicious for metastatic focus measuring 5mm, with hemosiderin deposition suggesting prior hemorrhage. No evidence for acute/subacute infarct. Nonspecific white matter changes. Discussed results in detail with patient and spouse. Will place outpatient consult to Dr. Giron with radiation oncology for further evaluation for possible XRT -NGS and PDL1 requested on pathology -F/u will be scheduled upon discharge to further discuss results, goals of care and treatment options #Sciatica -Noted to be in the left lower back extending down the left leg causing significant discomfort -Currently, he notes this is the main source of his pain as opposed to the abdominal pain present on admission -He has received Dilaudid 1 mg IV every 2 hours [id number] and noted improvement in pain, but quick offset -We did discuss potentially having epidural steroid injection -Baclofen 5 mg every 8 hours as needed was added on 04/20/2023 -Fentanyl 12 mcg transdermal every 72 hours was also added on 04/20/2023. Pt was reporting pain was not being well controlled, dose was increased to 25 mcg. Reporting better pain control with this dose. Diluadid d/c, started on Mize 7.5 prn. Reporting minimal relief with norco for breakthrough pain. Will increase dose to 10mg. Reporting good pain control on current regimen, pain meds sent to outpt pharmacy on file -Interventional pain management consulted for left sided sciatica. S/p lumbar epidural, reporting improvement in pain. #Microcytic hypochromic anemia -He has reported melanotic stool for a week prior to admission -Hemoglobin 11.4 on admission with MCV 77.4 -There is concern for iron deficiency secondary to GI blood loss -Iron studies consistent with SHARON. IV iron started . No vitamin B12 or folate deficiency noted -Hemoglobin is currently stable with no further melena or hematochezia since admission -GI consulted, s/p endoscopic evaluation 04/23. EGD revealed a 6 mm and a 1.65 cm ulcerated raised polypoid lesion in the second part of the duodenum with multiple biopsies obtained. Colonoscopy revealed 1 cm broad-based ascending colon polyp status post polypectomy #Atrial fibrillation, CAD -Underwent MARY JO with cardioversion on 04/16/2023 -Holding warfarin and aspirin and continuing with heparin drip. Transitioned back to coumadin -Went into a-fib rvr s/p endoscopy. Transferred to cardiac unit, cardiology following -Continue remainder of cardiac regimen per primary team/cardiology
[2023-04-28] MEDS ORDERED: WARFARIN 2 MG TAB PO ONE (18:00)
== END 2023-04-28 12:54 | disposition home or self-care (01) | DRG 988 ==
LOC: EC 07:16 → 5NMEDONC 12:22 → 3SCARD 04-23 17:00
PROVIDERS: ADMIT Student in an Organized Health Care Education/Training Program; ATTEND Student in an Organized Health Care Education/Training Program
PROC: 07B53ZX Excision of Right Axillary Lymphatic, Percutaneous Approach, Diagnostic (ICD-10-PCS; principal; 2023-04-19)
PROC: 0DBK8ZX Excision of Ascending Colon, Via Natural or Artificial Opening Endoscopic, Diagnostic (ICD-10-PCS; 2023-04-23)
PROC: 0DB98ZX Excision of Duodenum, Via Natural or Artificial Opening Endoscopic, Diagnostic (ICD-10-PCS; 2023-04-23 10:05)
PROC: 3E0R33Z Introduction of Anti-inflammatory into Spinal Canal, Percutaneous Approach (ICD-10-PCS; 2023-04-25)
PROC: B01B1ZZ Fluoroscopy of Spinal Cord using Low Osmolar Contrast (ICD-10-PCS; 2023-04-25)
PROC: 3E0R3BZ Introduction of Anesthetic Agent into Spinal Canal, Percutaneous Approach (ICD-10-PCS; 2023-04-25)
DX: C34.90 Malignant neoplasm of unspecified part of unspecified bronchus or lung (principal); C77.1 Secondary and unspecified malignant neoplasm of intrathoracic lymph nodes; C78.01 Secondary malignant neoplasm of right lung; C78.4 Secondary malignant neoplasm of small intestine; C77.3 Secondary and unspecified malignant neoplasm of axilla and upper limb lymph nodes; C78.89 Secondary malignant neoplasm of other digestive organs; C79.02 Secondary malignant neoplasm of left kidney and renal pelvis; C77.2 Secondary and unspecified malignant neoplasm of intra-abdominal lymph nodes; C79.72 Secondary malignant neoplasm of left adrenal gland; C79.71 Secondary malignant neoplasm of right adrenal gland; C79.2 Secondary malignant neoplasm of skin; C79.51 Secondary malignant neoplasm of bone; I42.8 Other cardiomyopathies; E87.1 Hypo-osmolality and hyponatremia; C79.31 Secondary malignant neoplasm of brain; C78.7 Secondary malignant neoplasm of liver and intrahepatic bile duct; I50.22 Chronic systolic (congestive) heart failure; K92.1 Melena; E87.8 Other disorders of electrolyte and fluid balance, not elsewhere classified; I48.0 Paroxysmal atrial fibrillation; I11.0 Hypertensive heart disease with heart failure; G89.3 Neoplasm related pain (acute) (chronic); E78.5 Hyperlipidemia, unspecified; M51.16 Intervertebral disc disorders with radiculopathy, lumbar region; M47.26 Other spondylosis with radiculopathy, lumbar region; M48.061 Spinal stenosis, lumbar region without neurogenic claudication; K80.20 Calculus of gallbladder without cholecystitis without obstruction; D50.0 Iron deficiency anemia secondary to blood loss (chronic); I25.10 Atherosclerotic heart disease of native coronary artery without angina pectoris; I35.1 Nonrheumatic aortic (valve) insufficiency; K57.30 Diverticulosis of large intestine without perforation or abscess without bleeding; K63.5 Polyp of colon; F43.10 Post-traumatic stress disorder, unspecified; R09.02 Hypoxemia; K44.9 Diaphragmatic hernia without obstruction or gangrene; L40.9 Psoriasis, unspecified; Z79.82 Long term (current) use of aspirin; Z79.01 Long term (current) use of anticoagulants; Z79.899 Other long term (current) drug therapy; Z87.891 Personal history of nicotine dependence; Z95.1 Presence of aortocoronary bypass graft; Z95.3 Presence of xenogenic heart valve; Z87.820 Personal history of traumatic brain injury; Z71.3 Dietary counseling and surveillance; Z88.6 Allergy status to analgesic agent; Z88.5 Allergy status to narcotic agent; Z88.8 Allergy status to other drugs, medicaments and biological substances
CPT/HCPCS: 20206; 36415; 43239; 45385; 62323; 70553; 71045; 71260; 72132; 74177; 76705; 76942; 80048; 80053; 81003; 82378; 82607; 82728; 82746; 83540; 83550; 83605; 83615; 83690; 83735; 83880; 83921; 84100; 84484; 85025; 85027; 85610; 85730; 86850; 86900; 86901; 88305; 88341; 88342; 93005; 94760; 96360; 96361; 99285

== ENCOUNTER 2023-05-11 00:28 | Inpatient (IN) | payer OTHER, MEDICARE ==
[2023-05-11 01:03] LABS: Anisocytosis Slight; Basophils # (A) 0.1 k/uL (0-0.2); Basophils % (A) 1 %; Eosinophils # (A) 0.3 k/uL (0-0.7); Eosinophils % (A) 4 %; HCT 27.5 % (39.0-53.0); HGB 9.1 gm/dL (13.0-17.5); Lymphocytes % (A) 11 %; MCH 26.5 pg (25.0-35.0); MCHC 33.2 g/dL (31.0-37.0); MCV 79.7 fL (80.0-100.0); Mean Platelet Volume 7.6; Monocytes # (A) 0.7 k/uL (0-1.0); Monocytes % (A) 7 %; Neutrophils # (A) 6.6 k/uL (1.3-7.7); Neutrophils % (A) 75 %; Platelet Count 407 k/uL (150-450); Poikilocytosis Slight; RBC 3.45 m/uL (4.30-5.90); RDW 16.4 % (11.5-15.5); WBC 8.8 k/uL (3.8-10.6)
[2023-05-11 01:17] LABS: INR 4.6 (<1.2); Partial Thromboplastin Time 41.6 sec (22.0-30.0); Prothrombin Time 44.9 sec (10.0-12.5)
[2023-05-11 01:18] LABS: ALT 19 U/L (4-49); AST 26 U/L (17-59); African American GFR (CKD) >90 (>60 ml/min/1.73 sqM); Albumin 3.7 g/dL (3.5-5.0); Alkaline Phosphatase 78 U/L (38-126); Anion Gap 11 mmol/L; Blood Urea Nitrogen 12 mg/dL (9-20); Calcium 9.2 mg/dL (8.4-10.2); Carbon Dioxide 27 mmol/L (22-30); Chloride 93 mmol/L (98-107); Glucose 103 mg/dL (74-99); Non-African American GFR(CKD) >90 (>60 ml/min/1.73 sqM); Potassium 3.7 mmol/L (3.5-5.1); Sodium 131 mmol/L (137-145); Total Bilirubin 1.1 mg/dL (0.2-1.3); Total Protein 6.5 g/dL (6.3-8.2)
--- NOTE | 2023-05-11 01:26 | XR ---
EXAMINATION TYPE: XR chest 2V DATE OF EXAM: 05/11/2023 COMPARISON: CT chest April 26, 2023 HISTORY: Difficulty in breathing. TECHNIQUE: Frontal and lateral views of the chest are obtained. FINDINGS: Background chronic emphysematous change with right perihilar opacity redemonstrated extend ing superiorly. This corresponds to a suspicious mass on CT. No pleural effusion or pneumothorax is s een. The cardiac silhouette size remains within normal limits. Overlying sternal wires are redemons trated along with surgical change at level of the aortic valve is again seen. The osseous structures are intact. IMPRESSION: Chronic emphysematous change with known suspicious right hilar mass worrisome for neopla sm. No new acute pulmonary process identified.
[2023-05-11] MEDS ORDERED: MORPHINE SULFATE 4 MG/ML SYRINGE IVP STA (01:44)
[2023-05-11] MEDS ORDERED: PHYTONADIONE ORAL 5 MG/5 ML ORAL.SYRG PO STA (02:02)
[2023-05-11] MEDS ORDERED: HYDROmorphone 1 MG/ML 1 ML SYRINGE IVP STA (02:05)
--- NOTE | 2023-05-11 02:12 | ED ---
General Adult HPI - General Chief complaint: Shortness of Breath Stated complaint: Cancer symptoms per EMS Time Seen by Provider: 05/11/23 00:35 Source: patient, EMS Mode of arrival: EMS Limitations: no limitations - History of Present Illness Initial comments: 63-year-old male with a past medical history significant for A. fib on Coumadin, COPD, and recent diagnosis of adenocarcinoma follows with Dr. Nicole. It's over the past 4 days has been more short of breath than usual. States he is typically on 2-3 L of oxygen and has a to increase it to 3-4 L. also notes over the past few days when he has been coughing he has been experiencing some blood. States that he is having small streaks of blood and some blood tinged sputum. Denies gross hemoptysis. No other complaints. - Related Data Home Medications Medication Instructions Recorded Confirmed Aspirin [Children's Aspirin] 81 mg PO DAILY 11/11/22 04/18/23 Albuterol Inhaler [Ventolin Hfa 2 puff INHALATION RT-Q6H PRN 01/29/23 04/18/23 Inhaler] Multivitamin [Multivitamins Adult 1 tab PO DAILY 03/27/23 04/18/23 Gummies] Previous Rx's Medication Instructions Recorded HYDROcodone/APAP 10-325MG [[place] 1 each PO Q4HR PRN #18 tab 04/27/23 10-325] Baclofen [Lioresal] 5 mg PO TID PRN #60 tab 04/28/23 Metoprolol Tartrate [Lopressor] 75 mg PO BID 30 Days #180 tab 04/28/23 Pantoprazole [Protonix] 40 mg PO DAILY 30 Days #30 tab 04/28/23 Prochlorperazine [Compazine] 10 mg PO Q6H PRN #60 tab 04/28/23 Warfarin [Coumadin] 7.5 mg PO DAILY #0 04/28/23 oxyCODONE HCL [oxyCODONE HCL (IR)] 5 mg PO Q6H PRN 3 Days #12 cap 04/28/23 Allergies Allergy/AdvReac Type Severity Reaction Status Date / Time acetaminophen Allergy Rash/Hives Verified 05/11/23 00:35 [From Darvocet-N 100] propoxyphene Allergy Rash/Hives Verified 05/11/23 00:35 [From Darvocet-N 100] amitriptyline [From Elavil] AdvReac NIGHTMARES Verified 05/11/23 00:35 hydralazine AdvReac MIGRAINES Verified 05/11/23 00:35 naproxen [From Naprosyn] AdvReac Nausea Verified 05/11/23 00:35 Review of Systems ROS Statement: Those systems with pertinent positive or pertinent negative responses have been documented in the HPI. ROS Other: All systems not noted in ROS Statement are negative. Past Medical History Past Medical History: Atrial Fibrillation, Coronary Artery Disease (CAD), Cancer, Heart Failure, Hyperlipidemia, Hypertension, Skin Disorder Additional Past Medical History / Comment(s): chronic lower back pain w/ Lt. sciatica, TBI, hiatal hernia, cardiomyopathy, psoriasis, CHF - had a recent script for Jardiance and states, "I'm not taking it, I saw it on t.v, all the side effects." diagnosed with lung cancer 03/2023 History of Any Multi-Drug Resistant Organisms: None Reported Past Surgical History: Cardiac Valve Replacement, Coronary Bypass/CABG Additional Past Surgical History / Comment(s): Rt. knee arthroscopy, jaw/facial reconstruction, aortic valve replacement w/ on-x mechanical valve & aortic root repair 2019 Past Anesthesia/Blood Transfusion Reactions: No Reported Reaction Past Psychological History: Anxiety, PTSD Smoking Status: Former smoker Past Alcohol Use History: None Reported Past Drug Use History: None Reported - Past Family History Mother Family Medical History: No Reported History Father Additional Family Medical History / Comment(s): Passed when patient was a child possibly related to heart disease. General Exam Limitations: no limitations General appearance: alert, in no apparent distress Neck exam: Present: normal inspection Respiratory exam: Present: wheezes (Bilateral) Cardiovascular Exam: Present: regular rate, normal rhythm GI/Abdominal exam: Present: soft Neurological exam: Present: alert, oriented X3 Skin exam: Present: warm, dry Course Vital Signs 05/11/23 05/11/23 00:29 01:00 Temperature 97.6 F Pulse Rate 101 H 107 H Respiratory 22 18 Rate Blood Pressure 140/89 126/96 O2 Sat by Pulse 98 99 Oximetry Medical Decision Making - Medical Decision Making Was pt. sent in by a medical professional or institution (, PA, MERCHANDISING TEAM LEAD, urgent care, hospital, or half-way...) When possible be specific @ -No Did you speak to anyone other than the patient for history (EMS, parent, family, police, friend...)? What history was obtained from this source @ -No Did you review nursing and triage notes (agree or disagree)? Why? @ -I reviewed and agree with nursing and triage notes Were old charts reviewed (outside hosp., previous admission, EMS record, old EKG, old radiological studies, urgent care reports/EKG's, half-way records)? Report findings @ -No old charts were reviewed Differential Diagnosis (chest pain, altered mental status, abdominal pain women, abdominal pain men, vaginal bleeding, weakness, fever, dyspnea, syncope, headache, dizziness, GI bleed, back pain, seizure, CVA, palpatations, mental h ealth, musculoskeletal)? @ -Differential Dyspnea: Coronary syndrome, arrhythmia, tamponade, asthma, COPD, pulmonary embolism, pneumonia, pneumothorax, pulmonary effusion, anaphylaxis, diabetic ketoacidosis, flailed chest, pulmonary contusion, diaphragmatic rupture, anemia, neuro muscular, this is not meant to be an all-inclusive list. EKG interpreted by me (3pts min.). @ -EKG interpreted by me shows A. fib at a rate of [address]-T wave changes. QRS 126, QT/QTc 374/430. X-rays interpreted by me (1pt min.). @ -Chest x-ray interpreted by me shows no acute process. CT interpreted by me (1pt min.). @ -None done U/S interpreted by me (1pt. min.). @ -None done What testing was considered but not performed or refused? (CT, X-rays, U/S, labs)? Why? @ -None What meds were considered but not given or refused? Why? @ -None Did you discuss the management of the patient with other professionals (professionals i.e. Dr., PA, MERCHANDISING TEAM LEAD, lab, RT, psych nurse, social services coordinator, alternative energy engineer, teacher, unarmed security officer, case operator)? Give summary @ -No Was smoking cessation discussed for >3mins.? @ -No Was critical care preformed (if so, how long)? @ -No Were there social determinants of health that impacted care today? How? (Homelessness, low income, unemployed, alcoholism, drug addiction, transportation, low edu. Level, literacy, decrease access to med. care, long term, rehab)? @ -No Was there de-escalation of care discussed even if they declined (Discuss DNR or withdrawal of care, Hospice)? DNR status @ -No What co-morbidities impacted this encounter? (DM, HTN, Smoking, COPD, CAD, Cancer, CVA, ARF, Chemo, Hep., AIDS, mental health diagnosis, sleep apnea, morbid obesity)? @ -COPD, adenocarcinoma Was patient admitted / discharged? Hospital course, mention meds given and route, prescriptions, significant lab abnormalities, going to OR and other pertinent info. @ -Admission 63-year-old male with a past medical history of A. fib on Coumadin and recent diagnosis of adenocarcinoma presenting to the ED with progressive shortness of breath needing to increase oxygen use at home also some hemoptysis described as small streaks of blood/blood tinged sputum. Laboratory studies reviewed. CBC significant for hemoglobin of 9.1. Coagulation panel shows coumadin supratheraputic. D-dimer elevated at 1.02. Chemistry panel shows a sodium of 131 and chloride of 93. Patient provided with vitamin K here in the ED. Secondary to supra Coumadin levels and a somewhat low hemoglobin patient will be admitted to observation. Undiagnosed new problem with uncertain prognosis? @ -No Drug Therapy requiring intensive monitoring for toxicity (Heparin, Nitro, Insulin, Cardizem)? @ -No Were any procedures done? @ -No Diagnosis/symptom? @ -Hemoptysis, hx of adenocarcinoma Acute, or Chronic, or Acute on Chronic? @ -Acute Uncomplicated (without systemic symptoms) or Complicated (systemic symptoms)? @ -Complicated Side effects of treatment? @ -No Exacerbation, Progression, or Severe Exacerbation? @ -No Poses a threat to life or bodily function? How? (Chest pain, [place], [place], pneumonia, PE, COPD, DKA, ARF, appy, cholecystitis, CVA, Diverticulitis, Homicidal, Suicidal, threat to staff... and all critical care pts) @ -No - Lab Data Result diagrams: 05/11/23 00:54 05/11/23 00:54 Lab Results 05/11/23 05/11/23 05/11/23 Range/Units 00:54 00:54 00:54 WBC 8.8 (3.8-10.6) k/uL RBC 3.45 L (4.30-5.90) m/uL Hgb 9.1 L (13.0-17.5) gm/dL Hct 27.5 L (39.0-53.0) % MCV 79.7 L (80.0-100.0) fL MCH 26.5 (25.0-35.0) pg MCHC 33.2 (31.0-37.0) g/dL RDW 16.4 H (11.5-15.5) % Plt Count 407 (150-450) k/uL MPV 7.6 Neutrophils % 75 % Lymphocytes % 11 % Monocytes % 7 % Eosinophils % 4 % Basophils % 1 % Neutrophils # 6.6 (1.3-7.7) k/uL Lymphocytes # 1.0 (1.0-4.8) k/uL Monocytes # 0.7 (0-1.0) k/uL Eosinophils # 0.3 (0-0.7) k/uL Basophils # 0.1 (0-0.2) k/uL Poikilocytosis Slight Anisocytosis Slight PT 44.9 H (10.0-12.5) sec INR 4.6 H (<1.2) APTT 41.6 H (22.0-30.0) sec D-Dimer 1.02 H (<0.60) mg/L FEU Sodium 131 L (137-145) mmol/L Potassium 3.7 (3.5-5.1) mmol/L Chloride 93 L (98-107) mmol/L Carbon Dioxide 27 (22-30) mmol/L Anion Gap 11 mmol/L BUN 12 (9-20) mg/dL Creatinine 0.69 (0.66-1.25) mg/dL Est GFR (CKD-EPI)AfAm >90 (>60 ml/min/1.73 sqM) Est GFR (CKD-EPI)NonAf >90 (>60 ml/min/1.73 sqM) Glucose 103 H (74-99) mg/dL Plasma Lactic Acid Gordon (0.7-2.0) mmol/L Calcium 9.2 (8.4-10.2) mg/dL Total Bilirubin 1.1 (0.2-1.3) mg/dL AST 26 (17-59) U/L ALT 19 (4-49) U/L Alkaline Phosphatase 78 (38-126) U/L Troponin I (0.000-0.034) ng/mL Total Protein 6.5 (6.3-8.2) g/dL Albumin 3.7 (3.5-5.0) g/dL 05/11/23 05/11/23 Range/Units 00:54 00:54 WBC (3.8-10.6) k/uL RBC (4.30-5.90) m/uL Hgb (13.0-17.5) gm/dL Hct (39.0-53.0) % MCV (80.0-100.0) fL MCH (25.0-35.0) pg MCHC (31.0-37.0) g/dL RDW (11.5-15.5) % Plt Count (150-450) k/uL MPV Neutrophils % % Lymphocytes % % Monocytes % % Eosinophils % % Basophils % % Neutrophils # (1.3-7.7) k/uL Lymphocytes # (1.0-4.8) k/uL Monocytes # (0-1.0) k/uL Eosinophils # (0-0.7) k/uL Basophils # (0-0.2) k/uL Poikilocytosis Anisocytosis PT (10.0-12.5) sec INR (<1.2) APTT (22.0-30.0) sec D-Dimer (<0.60) mg/L FEU Sodium (137-145) mmol/L Potassium (3.5-5.1) mmol/L Chloride (98-107) mmol/L Carbon Dioxide (22-30) mmol/L Anion Gap mmol/L BUN (9-20) mg/dL Creatinine (0.66-1.25) mg/dL Est GFR (CKD-EPI)AfAm (>60 ml/min/1.73 sqM) Est GFR (CKD-EPI)NonAf (>60 ml/min/1.73 sqM) Glucose (74-99) mg/dL Plasma Lactic Acid Gordon 1.1 (0.7-2.0) mmol/L Calcium (8.4-10.2) mg/dL Total Bilirubin (0.2-1.3) mg/dL AST (17-59) U/L ALT (4-49) U/L Alkaline Phosphatase (38-126) U/L Troponin I <0.012 (0.000-0.034) ng/mL Total Protein (6.3-8.2) g/dL Albumin (3.5-5.0) g/dL Disposition Clinical Impression: Hemoptysis Disposition: ADMITTED IP TO THIS [facility] Condition: Good Referrals: Nonstaff,Physician [Primary Care Provider] - 1-2 days
[2023-05-11] MEDS ORDERED: ALPRAZolam 0.5 MG TAB PO PRN (03:08)
[2023-05-11] MEDS ORDERED: NALOXONE 0.4 MG/ML 1 ML VIAL IV PRN (03:30)
[2023-05-11] MEDS ORDERED: SODIUM CHLORIDE 0.9% 1,000 ML IV SCH (03:30)
[2023-05-11] MEDS ORDERED: HYDROcodone/APAP 10-325MG 1 EACH TAB PO PRN (06:52)
[2023-05-11] MEDS ORDERED: PANTOPRAZOLE 40 MG TABLET PO SCH (07:30)
[2023-05-11] MEDS: METOPROLOL TARTRATE 25 MG TAB PO SCH ×2 (07:40→20:00)
[2023-05-11] MEDS: FUROSEMIDE 40 MG TAB PO SCH (07:41)
[2023-05-11] MEDS: PANTOPRAZOLE 40 MG TABLET PO SCH ×2 (07:41→16:58)
[2023-05-11] MEDS: HYDROmorphone 0.5 MG/0.5 ML SYRINGE IVP PRN ×2 (07:49→16:57)
[2023-05-11] MEDS ORDERED: BENZOCAINE/MENTHOL LOZENG 1 EACH LOZENGE MUCOUS MEM PRN (08:57)
[2023-05-11] MEDS ORDERED: ONDANSETRON 4 MG/2 ML VIAL IVP PRN (09:05)
[2023-05-11] MEDS ORDERED: BENZONATATE 100 MG CAP PO PRN (09:05)
[2023-05-11] MEDS ORDERED: BACLOFEN 10 MG TAB PO PRN (09:09)
[2023-05-11] MEDS: guaiFENesin 600 MG TABLET.ER PO SCH ×2 (09:40→20:00)
[2023-05-11] MEDS: AZITHROMYCIN 500 MG TAB PO SCH (09:40)
[2023-05-11] MEDS: predniSONE 20 MG TAB PO SCH (09:40)
[2023-05-11] MEDS: ALBUTEROL NEBULIZED 2.5 MG/3 ML INHALATION PRN (11:24)
[2023-05-11 14:37] LABS: INR 2.4 (<1.2); Prothrombin Time 23.9 sec (10.0-12.5)
--- NOTE | 2023-05-11 15:36 | P.HPIM ---
History of Present Illness H&P Date: 05/11/23 Chief Complaint: Hemoptysis * 63-year-old gentleman with past medical history significant for newly diagnosed metastatic lung adenocarcinoma with intra-abdominal and brain meta stases, history of atrial fibrillation, mechanical aortic valve, on anticoagulation with Coumadin, heart failure with reduced ejection fraction 35-40%, thoracic aortic aneurysm status post repair, hypertension, hyperlipidemia, mild nonobstructive coronary artery disease with a prolonged hospitalization in March including EGD and colonoscopy, episode of A. fib RVR as well as new diagnosis of metastatic lung adenocarcinoma presents with worsening shortness of breath ongoing for the last 4 days. Patient was discharged in April 20, on 3 L of oxygen, patient stated he had to bump his oxygen to 4 L, patient also complained of cough with streaks of blood/blood- tinged sputum. * Workup in ER included CBC which showed WBC of 8.8 hemoglobin 9.1 platelet 407, coagulation INR 4.6, d-dimer 1.02, serum chemistry showed sodium 131 potassium 3.7 chloride 90 3B UN 12 creatinine 0.6 * Patient tested negative for influenza, Covid and RSV * Chest x-ray obtained showed hilar mass on right, emphysematous changes noted * Patient was given 5 mg of oral vitamin K, and follow-up INR levels ordered, * He will be admitted to medical for with consultations from oncology, pulmonary medicine REVIEW OF SYSTEMS: Cough, shortness of breath, hemoptysis CONSTITUTIONAL: No fever, no malaise, no fatigue. HEENT: No recent visual problems or hearing problems. Denied any sore throat. CARDIOVASCULAR: No chest pain, orthopnea, PND, no palpitations, no syncope. PULMONARY: No shortness of breath, no cough, no hemoptysis. GASTROINTESTINAL: No diarrhea, no nausea, no vomiting, no abdominal pain. NEUROLOGICAL: No headaches, no weakness, no numbness. HEMATOLOGICAL: Denies any bleeding or petechiae. GENITOURINARY: Denies any burning micturition, frequency, or urgency. MUSCULOSKELETAL/RHEUMATOLOGICAL: Denies any joint pain, swelling, or any muscle pain. ENDOCRINE: Denies any polyuria or polydipsia. PHYSICAL EXAMINATION: GENERAL: The patient is alert and oriented x3, ill appearance, nasal cannula in place HEENT: Pupils are round and equally reacting to light. EOMI. CARDIOVASCULAR: S1 and S2 present. No murmurs, rubs, or gallops. PULMONARY: Decreased breath sounds bilaterally ABDOMEN: Soft, nontender, nondistended, normoactive bowel sounds. No palpable organomegaly. MUSCULOSKELETAL: No joint swelling or deformity. EXTREMITIES: No cyanosis, clubbing, or pedal edema. NEUROLOGICAL: Gross neurological examination did not reveal any focal deficits. SKIN: No rashes. Past Medical History Past Medical History: Atrial Fibrillation, Coronary Artery Disease (CAD), Cancer, Heart Failure, Hyperlipidemia, Hypertension, Skin Disorder Additional Past Medical History / Comment(s): chronic lower back pain w/ Lt. sciatica, TBI, hiatal hernia, cardiomyopathy, psoriasis, CHF - had a recent script for Jardiance and states, "I'm not taking it, I saw it on t.v, all the side effects." diagnosed with lung cancer 03/2023 History of Any Multi-Drug Resistant Organisms: None Reported Past Surgical History: Cardiac Valve Replacement, Coronary Bypass/CABG Additional Past Surgical History / Comment(s): Rt. knee arthroscopy, jaw/facial reconstruction, aortic valve replacement w/ on-x mechanical valve & aortic root repair 2019 Past Anesthesia/Blood Transfusion Reactions: No Reported Reaction Past Psychological History: Anxiety, PTSD Smoking Status: Former smoker Past Alcohol Use History: None Reported Past Drug Use History: None Reported - Past Family History Mother Family Medical History: No Reported History Father Additional Family Medical History / Comment(s): Passed when patient was a child possibly related to heart disease. Medications and Allergies Home Medications Medication Instructions Recorded Confirmed Type Aspirin [Children's Aspirin] 81 mg PO DAILY@0800 11/11/22 05/11/23 History Albuterol Inhaler [Ventolin Hfa 2 puff INHALATION RT-Q6H PRN 01/29/23 05/11/23 History Inhaler] oxyCODONE HCL [oxyCODONE HCL (IR)] 5 mg PO Q6H PRN 3 Days #12 cap 04/28/23 05/11/23 Rx Baclofen 5 mg PO BID@0800,1300 05/11/23 05/11/23 History Furosemide [Lasix] 40 mg PO DAILY@0800 05/11/23 05/11/23 History HYDROcodone/APAP 10-325MG [[place] 1 tab PO Q4HR PRN 05/11/23 05/11/23 History 10-325] Metoprolol Tartrate [Lopressor] 50 mg PO BID@0800,199905/11/23 05/11/23 History Pantoprazole [Protonix] 40 mg PO DAILY@0800 05/11/23 05/11/23 History Prochlorperazine [Compazine] 10 mg PO DAILY@0800 05/11/23 05/11/23 History Warfarin [Coumadin] 7.5 mg PO DAILY@199905/11/23 05/11/23 History fentaNYL 25MCG/HR PATCH [[place] 1 patch TOPICAL Q72H 05/11/23 05/11/23 History 25MCG/HR] Allergies Allergy/AdvReac Type Severity Reaction Status Date / Time acetaminophen Allergy Rash/Hives Verified 05/11/23 11:37 [From Darvocet-N 100] propoxyphene Allergy Rash/Hives Verified 05/11/23 11:37 [From Darvocet-N 100] amitriptyline [From Elavil] AdvReac NIGHTMARES Verified 05/11/23 11:37 hydralazine AdvReac MIGRAINES Verified 05/11/23 11:37 naproxen [From Naprosyn] AdvReac Nausea Verified 05/11/23 11:37 Physical Exam Vitals: Vital Signs Temp Pulse Resp BP Pulse Ox 05/11/23 08:27 94 L 05/11/23 07:43 100 20 125/85 98 05/11/23 03:00 96 18 120/76 97 05/11/23 02:00 107 H 18 114/86 99 05/11/23 01:00 107 H 18 126/96 99 05/11/23 00:29 97.6 F 101 H 22 140/89 98 Intake and Output 05/10/23 05/11/23 05/11/23 22:59 06:59 14:59 Other: Weight 75.75 kg Results CBC & Chem 7: 05/11/23 00:54 05/11/23 00:54 Labs: Abnormal Lab Results - Last 24 Hours (Table) 05/11/23 05/11/23 05/11/23 Range/Units 00:54 00:54 00:54 RBC 3.45 L (4.30-5.90) m/uL Hgb 9.1 L (13.0-17.5) gm/dL Hct 27.5 L (39.0-53.0) % MCV 79.7 L (80.0-100.0) fL RDW 16.4 H (11.5-15.5) % PT 44.9 H (10.0-12.5) sec INR 4.6 H (<1.2) APTT 41.6 H (22.0-30.0) sec D-Dimer 1.02 H (<0.60) mg/L FEU Sodium 131 L (137-145) mmol/L Chloride 93 L (98-107) mmol/L Glucose 103 H (74-99) mg/dL Thrombosis Risk Factor Assmnt - DVT/VTE Prophylaxis DVT/VTE Prophylaxis: Mechanical Prophylaxis ordered Assessment and Plan Assessment: Assessment and plan * Metastatic adenocarcinoma of lung with intra-abdominal and brain metastases admitted with hemoptysis * Supratherapeutic INR with hemoptysis * Acute exacerbation of obstructive lung disease * Acute on chronic hypoxic respiratory failure * Chronic atrial fibrillation * Mechanical aortic valve * Chronic congestive heart failure with reduced ejection fraction of 35% * Acute on chronic anemia, blood loss anemia * Chronic cancer related pain * In regards to her metastatic adenocarcinoma with hemoptysis, supratherapeutic INR noted, patient was given vitamin K in ER, follow-up INR levels ordered, continue to hold Coumadin * In regards to acute exacerbation of obstructive lung disease continue azithromycin, prednisone continue breathing treatments continue oxygen supplementation * In regards to history of atrial fibrillation, mechanical aortic valve, patient anticoagulation intermittently held due to concern for hemoptysis. Will wait for input from pulmonary medicine and oncology * In regards to chronic congestive heart failure continue patient on Lasix, gentle hydration IV fluid to be discontinued * In regards to acute on chronic anemia continue to follow up on CBC, transfuse for hemodynamic instability or hemoglobin less than 8 * In regards to cancer related pain continue with pain control * Status is full code Time with Patient: Greater than 30
[2023-05-11] MEDS: HYDROcodone/APAP 10-325MG 1 EACH TAB PO PRN ×2 (20:01→22:27)
[2023-05-11] MEDS: SYMBICORT 160-4.5 MCG INHALER INHALATION SCH (21:10)
[2023-05-12] MEDS: HYDROmorphone 0.5 MG/0.5 ML SYRINGE IVP PRN ×3 (01:06→21:25)
--- NOTE | 2023-05-12 01:33 | P.CONS ---
History of Present Illness - Reason for Consult Consult date: 05/11/23 Metastatic lung cancer - History of Present Illness The patient is a 63-year-old white male, recently seen in consult when admitted to the hospital on 04/18/23. He had presented with increasing abdominal pain over the past one to 2 months. He also had chronic left-sided radicular pain radiating down the left lower extremity that had been present chronically and was also quite significant. However abdominal pain had become more prominent over the past couple of months leading to the admission. The patient was found to have extensive metastatic disease on physical examination and imaging, as noted below on notes from his recent visit: "-Physical exam was significant for right cervical and bilateral supraclavicular lymphadenopathy in addition to palpable soft tissue mass just posterior to the lower portion of the right axilla -Exam was also notable for palpable lump to lesion in the left lower quadrant -CT abdomen/pelvis on admission was notable for pleural-based lesion in the right lower lobe, bilateral adrenal gland nodules, 2 left kidney nodules, soft tissue mass near the spleen, retroperitoneal lymphadenopathy, and abdominal wall nodules in the left lower quadrant and right lower quadrant suspicious for malignancy -From a malignancy standpoint, we discussed pursuing biopsy to help confirm diagnosis of malignancy -LDH elevated at 429. CEA mildly elevated at 28 -Biopsy of the soft tissue mass posterior to the right axilla was performed on 04/19/2023. both right axilla and duodenal biopsy revealed metastatic lung adenocarcinoma Metastatic lung adenocarcinoma: -Biopsy of right axilla and duodenum revealed metastatic lung adenocarcinoma -Brain MRI and CT chest ordered for staging. CT chest revealed extensive mediastinal and right hilar soft tissue masses/adenopathy. A large right axill cailin node and soft tissue implant in the lateral right upper arm. Multiple bilateral pulmonary nodules and areas of groundglass opacity greatest in the left upper lobe. Right hilar mass surrounds and narrows branches of the right pulmonary artery especially in the right upper lobe, also mild narrowing of the bronchi. Moderate size hiatal hernia, de guzman appear somewhat thickened and irregular concerning for possible neoplastic involvement. Extensive upper abdominal metastatic disease which likely involves the liver and spleen Brain MRI revealed left occipital lobe peripherally enhancing lesion with blooming artifact suspicious for metastatic focus measuring 5mm, with hemosiderin deposition suggesting prior hemorrhage. No evidence for acute/subacute infarct. Nonspecific white matter changes. The patient also received epidural injection for left-sided sciatic pain with improvement. He was discharged on fentanyl and [place] 10-325. He had outpatient peripheral placed a radiation oncology. NGS and PDL1 requested on pathology The patient presented this time with increased shortness of breath compared to baseline, over the past 3-4 days. He was coughing up small amounts of blood intermittently. The patient is on Coumadin for A. fib, and INR was subtherapeutic, at 4.46 on admission. Warfarin was held, and the patient received by mouth vitamin K. Hemoglobin was 9.1, with his baseline typically in the 9-10 range. he stated that he had noted the new lump in the left supracla vicular area since his discharge. Review of Systems Constitutional: Reports chronic pain, Reports poor appetite, Reports weakness, Reports weight loss Eyes: denies blurred vision, denies pain Ears: deny: decreased hearing, ear discharge, earache, tinnitus Ears, nose, mouth and throat: Denies headache, Denies sore throat Cardiovascular: Reports irregular heart beat, Reports shortness of breath Respiratory: Reports cough, Reports dyspnea, Reports hemoptysis Gastrointestinal: Reports melena Genitourinary: Reports as per HPI Musculoskeletal: Reports as per HPI, Reports low back pain, Reports shooting leg pain Integumentary: Reports as per HPI Neurological: Reports weakness Psychiatric: Reports anxiety Endocrine: Reports fatigue, Reports weight change Hematologic/Lymphatic: Reports as per HPI, Reports lymphadenopathy Past Medical History Past Medical History: Atrial Fibrillation, Coronary Artery Disease (CAD), Cancer, Heart Failure, Hyperlipidemia, Hypertension, Skin Disorder Additional Past Medical History / Comment(s): chronic lower back pain w/ Lt. sciatica, TBI, hiatal hernia, cardiomyopathy, psoriasis, CHF - had a recent script for Jardiance and states, "I'm not taking it, I saw it on t.v, all the side effects." diagnosed with lung cancer 03/2023 History of Any Multi-Drug Resistant Organisms: None Reported Past Surgical History: Cardiac Valve Replacement, Coronary Bypass/CABG Additional Past Surgical History / Comment(s): Rt. knee arthroscopy, jaw/facial reconstruction, aortic valve replacement w/ on-x mechanical valve & aortic root repair 2019 Past Anesthesia/Blood Transfusion Reactions: No Reported Reaction Past Psychological History: Anxiety, PTSD Smoking Status: Former smoker Past Alcohol Use History: None Reported Past Drug Use History: None Reported - Past Family History Mother Family Medical History: No Reported History Father Additional Family Medical History / Comment(s): Passed when patient was a child possibly related to heart disease. Medications and Allergies Home Medications Medication Instructions Recorded Confirmed Type Aspirin [Children's Aspirin] 81 mg PO DAILY@0800 11/11/22 05/11/23 History Albuterol Inhaler [Ventolin Hfa 2 puff INHALATION RT-Q6H PRN 01/29/23 05/11/23 History Inhaler] oxyCODONE HCL [oxyCODONE HCL (IR)] 5 mg PO Q6H PRN 3 Days #12 cap 04/28/2305/11 Rx Baclofen 5 mg PO BID@0800,1300 05/11/23 05/11/23 History Furosemide [Lasix] 40 mg PO DAILY@0800 05/11/23 05/11/23 History HYDROcodone/APAP 10-325MG [[place] 1 tab PO Q4HR PRN 05/11/23 05/11/23 History 10-325] Metoprolol Tartrate [Lopressor] 50 mg PO BID@0800,199905/11/23 05/11/23 History Pantoprazole [Protonix] 40 mg PO DAILY@0800 05/11/23 05/11/23 History Prochlorperazine [Compazine] 10 mg PO DAILY@0800 05/11/23 05/11/23 History Warfarin [Coumadin] 7.5 mg PO DAILY@199905/11/23 05/11/23 History fentaNYL 25MCG/HR PATCH [Duragesic 1 patch TOPICAL Q72H 05/11/23 05/11/23 History 25MCG/HR] Allergies Allergy/AdvReac Type Severity Reaction Status Date / Time acetaminophen Allergy Rash/Hives Verified 05/11/23 11:37 [From Darvocet-N 100] propoxyphene Allergy Rash/Hives Verified 05/11/23 11:37 [From Darvocet-N 100] amitriptyline [From Elavil] AdvReac NIGHTMARES Verified 05/11/23 11:37 hydralazine AdvReac MIGRAINES Verified 05/11/23 11:37 naproxen [From Naprosyn] AdvReac Nausea Verified 05/11/23 11:37 Physical Exam Vitals: Vital Signs Temp Pulse Resp BP Pulse Ox 05/11/23 11:31 72 05/11/23 11:24 70 05/11/23 09:43 88 16 106/75 95 05/11/23 08:27 94 L 05/11/23 07:43 100 20 125/85 98 05/11/23 03:00 96 18 120/76 97 05/11/23 02:00 107 H 18 114/86 99 05/11/23 01:00 107 H 18 126/96 99 05/11/23 00:29 97.6 F 101 H 22 140/89 98 Intake and Output 05/10/23 05/11/23 05/11/23 22:59 06:59 14:59 Other: Weight 75.75 kg - Constitutional General appearance: no acute distress - EENT Eyes: EOMI, PERRLA ENT: hearing grossly normal, normal oropharynx - Neck Neck: lymphadenopathy (1.5 cm lymph node palpable left supraclavicular area) Thyroid: bilateral: normal size - Respiratory Respiratory: bilateral: CTA - Cardiovascular Rhythm: irregularly irregular Heart sounds: normal: S1, S2 Abnormal Heart Sounds: click - Gastrointestinal General gastrointestinal: normal bowel sounds, soft - Integumentary Integumentary: normal - Neurologic Neurologic: CNII-XII intact - Musculoskeletal Musculoskeletal: generalized weakness, strength equal bilaterally - Psychiatric Psychiatric: A&O x's 3, appropriate affect Results CBC & Chem 7: 05/11/23 00:54 05/11/23 00:54 Labs: Abnormal Lab Results - Last 24 Hours (Table) 05/11/23 05/11/23 05/11/23 Range/Units 00:54 00:54 00:54 RBC 3.45 L (4.30-5.90) m/uL Hgb 9.1 L (13.0-17.5) gm/dL Hct 27.5 L (39.0-53.0) % MCV 79.7 L (80.0-100.0) fL RDW 16.4 H (11.5-15.5) % PT 44.9 H (10.0-12.5) sec INR 4.6 H (<1.2) APTT 41.6 H (22.0-30.0) sec D-Dimer 1.02 H (<0.60) mg/L FEU Sodium 131 L (137-145) mmol/L Chloride 93 L (98-107) mmol/L Glucose 103 H (74-99) mg/dL Comments: the EKG image and report reviewed. Ongoing atrial fibrillation with rate control Chest x-ray: report reviewed Assessment and Plan (1) Hemoptysis Narrative/Plan: this appears to be relatively minor, without major drop in hemoglobin. This was likely due to his INR being supratherapeutic. This has improved with holding Coumadin, and administration of vitamin K. Repeat coags in AM Current Visit: Yes Status: Acute Code(s): R04.2 - HEMOPTYSIS SNOMED Code(s): 45307159 (2) Cancer, metastatic Narrative/Plan: the patient has biopsy-proven adenocarcinoma of the lung, when widespread metastatic disease, including brain involvement. He had fairly aggressive presentation, and apparently has developed new adenopathy since his discharge. - The patient's had called regarding his case. She claimed that the patient and his family had not been advised of his prognosis and the overall clinical situation. She was advised that this was incorrect, and it had been documented that the diagnosis, and implications had been discussed in detail with the patient prior to his discharge. She subsequently admitted. The patient had not been able to accurately communicate his interaction with his physicians with his family. A family meeting with therefore be scheduled to reiterate the aspects of his case - It was again discussed with the patient today, that he has metastatic malignancy, which is not curable. Has he has been metastasis, the first agent treatment would be radiation treatment for the same. He was to see radiation oncology early next week. However if this still inpatient, we will request them to see him while he is here to expedite the initiation of brain radiation. The patient was also advised that systemic therapy would start after brain radiation. For determination of the actual regimen, biomarker testing has been ordered and is pending. If he does not have any actual limitation, he will be treated with standard correlation chemotherapy plus immunotherapy in the first line. Current Visit: No Status: Acute Code(s): C79.9 - SECONDARY MALIGNANT NEOPLASM OF UNSPECIFIED SITE SNOMED Code(s): 368451847 (3) Subtherapeutic international normalized ratio (INR) Narrative/Plan: the patient is currently on warfarin for atrial fibrillation that appears to be valvular. His INR was elevated on admission. It was discussed with the patient that INR regulation is likely to be difficult in a patient with metastatic malignancy, with variable appetite, who is to initiate chemotherapy. While typically DOACs are not indicated for valvular atrial fibrillation, I will discuss with cardiology about the possibility of using same, based on risk versus benefit, given that INR regulation in this patient is likely to be quite problematic. Current Visit: No Status: Acute Code(s): R79.1 - ABNORMAL COAGULATION PROFILE SNOMED Code(s): 823224825
[2023-05-12] MEDS: HYDROcodone/APAP 10-325MG 1 EACH TAB PO PRN ×3 (04:14→17:33)
[2023-05-12] MEDS: PANTOPRAZOLE 40 MG TABLET PO SCH ×2 (06:45→21:25)
[2023-05-12 08:01] LABS: Anisocytosis Slight; Basophils % (A) 0 %; Eosinophils # (A) 0.4 k/uL (0-0.7); Eosinophils % (A) 3 %; HCT 27.6 % (39.0-53.0); Hypochromasia Slight; Lymphocytes # (A) 1.2 k/uL (1.0-4.8); Lymphocytes % (A) 10 %; MCH 26.6 pg (25.0-35.0); MCHC 32.7 g/dL (31.0-37.0); MCV 81.5 fL (80.0-100.0); Mean Platelet Volume 7.9; Monocytes # (A) 0.8 k/uL (0-1.0); Monocytes % (A) 7 %; Neutrophils # (A) 8.6 k/uL (1.3-7.7); Neutrophils % (A) 76 %; Platelet Count 432 k/uL (150-450); Poikilocytosis Slight; RBC 3.39 m/uL (4.30-5.90); RDW 16.7 % (11.5-15.5); WBC 11.3 k/uL (3.8-10.6)
[2023-05-12 08:08] LABS: INR 1.4 (<1.2); Prothrombin Time 14.1 sec (10.0-12.5)
[2023-05-12] MEDS: METOPROLOL TARTRATE 25 MG TAB PO SCH ×2 (08:17→21:25)
[2023-05-12] MEDS: FUROSEMIDE 40 MG TAB PO SCH (08:18)
[2023-05-12] MEDS: AZITHROMYCIN 500 MG TAB PO SCH (08:18)
[2023-05-12 08:23] LABS: African American GFR (CKD) >90 (>60 ml/min/1.73 sqM); Anion Gap 10 mmol/L; Blood Urea Nitrogen 11 mg/dL (9-20); Calcium 9.6 mg/dL (8.4-10.2); Carbon Dioxide 30 mmol/L (22-30); Chloride 93 mmol/L (98-107); Glucose 110 mg/dL (74-99); Non-African American GFR(CKD) >90 (>60 ml/min/1.73 sqM); Potassium 4.1 mmol/L (3.5-5.1); Sodium 133 mmol/L (137-145)
[2023-05-12] MEDS: SYMBICORT 160-4.5 MCG INHALER INHALATION SCH ×2 (08:35→19:55)
[2023-05-12] MEDS: guaiFENesin 600 MG TABLET.ER PO SCH ×2 (11:08→21:25)
[2023-05-12] MEDS: predniSONE 20 MG TAB PO SCH (11:08)
[2023-05-12] MEDS: ALBUTEROL NEBULIZED 2.5 MG/3 ML INHALATION PRN ×2 (11:51→19:55)
--- NOTE | 2023-05-12 13:42 | P.CNPUL ---
History of Present Illness Consult date: 05/12/23 Requesting physician: Jaycob New Reason for consult: dyspnea, cough, hypoxemia, abnormal CXR/CT, other Chief complaint: Hemoptysis, shortness of breath. History of present illness: Pulmonary consult dated 05/12/2023. 63-year-old male who was seen in the emergency department, on May 11. He was brought there by EMS. The patient came in with complaints of increasing shortness of breath, and hemoptysis. He's been coughing up bright red blood, for a couple of days, prior to admission. The patient had a recent diagnosis of metastatic adenocarcinoma of the lung. He had a right axillary biopsy, which was positive, for adenocarcinoma, and a bowel biopsy, as well. The patient on x-ray, has a right hilar mass the patient is on Coumadin, for both atrial fibrillation, and a mechanical valve. He was seen in the emergency department, room 20. He's not receiving any IV fluids. He is receiving oxygen at 3 L. His medical history includes atrial fibrillation, coronary disease, metastatic lung cancer, heart failure, hyperlipidemia, hypertension, chronic low back pain, traumatic brain injury, psoriasis, and previous aortic valve replacement. The patient has a history of previous tobacco use. Patient has not yet started treatment for his lung cancer. Current laboratory data includes a white count 11.3, he will benign, hematocrit 27.6, and platelet count 432,000. The most rec ent PT/INR were 14.1 and 1.4. When he came into the hospital they were 44.9 and 4.6 respectively. Sodium 133, potassium 4.1, chlorides 93, CO2 30, BUN 11, creatinine 0.67. Viral screen was negative. Chest x-ray shows chronic emphysematous changes, and a known suspicious right hilar mass. Review of Systems REVIEW OF SYSTEMS: CONSTITUTIONAL: [Negative.] NEUROLOGIC: [ Negative.] HEENT: [ Negative.] CARDIAC: [Negative.] PULMONARY: Shortness of breath, hemoptysis. GI: [Negative.] : [Negative.] RHEUMATOLOGIC: [ Negative.] IMMUNOLOGIC: [ Negative.] ENDOCRINE: [Negative. ] DERMATOLOGIC: [Negative.] Past Medical History Past Medical History: Atrial Fibrillation, Coronary Artery Disease (CAD), Cancer, Heart Failure, Hyperlipidemia, Hypertension, Skin Disorder Additional Past Medical History / Comment(s): chronic lower back pain w/ Lt. sciatica, TBI, hiatal hernia, cardiomyopathy, psoriasis, CHF - had a recent script for Jardiance and states, "I'm not taking it, I saw it on t.v, all the side effects." diagnosed with lung cancer 03/2023 History of Any Multi-Drug Resistant Organisms: None Reported Past Surgical History: Cardiac Valve Replacement, Coronary Bypass/CABG Additional Past Surgical History / Comment(s): Rt. knee arthroscopy, jaw/facial reconstruction, aortic valve replacement w/ on-x mechanical valve & aortic root repair 2019 Past Anesthesia/Blood Transfusion Reactions: No Reported Reaction Past Psychological History: Anxiety, PTSD Smoking Status: Former smoker Past Alcohol Use History: None Reported Past Drug Use History: None Reported - Past Family History Mother Family Medical History: No Reported History Father Additional Family Medical History / Comment(s): Passed when patient was a child possibly related to heart disease. Medications and Allergies Home Medications Medication Instructions Recorded Confirmed Type Aspirin [Children's Aspirin] 81 mg PO DAILY@0800 11/11/22 05/11/23 History Albuterol Inhaler [Ventolin Hfa 2 puff INHALATION RT-Q6H PRN 01/29/23 05/11/23 History Inhaler] oxyCODONE HCL [oxyCODONE HCL (IR)] 5 mg PO Q6H PRN 3 Days #12 cap 04/28/23 05/11/23 Rx Baclofen 5 mg PO BID@0800,1300 05/11/23 05/11/23 History Furosemide [Lasix] 40 mg PO DAILY@0800 05/11/23 05/11/23 History HYDROcodone/APAP 10-325MG [[place] 1 tab PO Q4HR PRN 05/11/23 05/11/23 History 10-325] Metoprolol Tartrate [Lopressor] 50 mg PO BID@0800,199905/11/23 05/11/23 History Pantoprazole [Protonix] 40 mg PO DAILY@79905/11/23 05/11/23 History Prochlorperazine [Compazine] 10 mg PO DAILY@0800 05/11/23 05/11/23 History Warfarin [Coumadin] 7.5 mg PO DAILY@199905/11/23 05/11/23 History fentaNYL 25MCG/HR PATCH [Duragesic 1 patch TOPICAL Q72H 05/11/23 05/11/23 History 25MCG/HR] Allergies Allergy/AdvReac Type Severity Reaction Status Date / Time acetaminophen Allergy Rash/Hives Verified 05/11/23 11:37 [From Darvocet-N 100] propoxyphene Allergy Rash/Hives Verified 05/11/23 11:37 [From Darvocet-N 100] amitriptyline [From Elavil] AdvReac NIGHTMARES Verified 05/11/23 11:37 hydralazine AdvReac MIGRAINES Verified 05/11/23 11:37 naproxen [From Naprosyn] AdvReac Nausea Verified 05/11/23 11:37 Physical Exam Osteopathic Statement: *. No significant issues noted on an osteopathic structural exam other than those noted in the History and Physical/Consult. Vitals: Vital Signs Temp Pulse Pulse Resp BP BP Pulse Ox 05/12/23 12:02 92 05/12/23 11:52 91 05/12/23 11:05 105 H 18 139/89 99 05/12/23 08:35 100 05/12/23 02:00 97.5 F L 96 117/86 95 05/11/23 20:05 98 16 113/83 100 05/11/23 13:43 91 19 105/62 100 Intake and Output 05/11/23 05/12/23 05/12/23 22:59 06:59 14:59 Other: Voiding Method Urinal Weight 75.75 kg No acute distress, oriented 3. The patient is currently on 3 L of oxygen by nasal cannula. HEENT examination is grossly unremarkable. Mucous membranes are moist. No oral lesions. Neck supple. Full range of motion. No adenopathy thyromegaly or neck vein distention. Cardiovascular examination reveals regular rhythm rate. S1-S2 normal. No S3 or S4. No discernible murmur noted. Heart rate 92 bpm Lungs reveal scattered bilateral rhonchi. No wheezes. No crackles. Breath sounds are equal. 3 L saturation is 99%. Abdomen soft bowel sounds are heard. No masses or tenderness. Extremities are intact. No cyanosis clubbing or edema. Skin is without rash or lesion. Neurologic examination is brief but nonfocal. Results - Laboratory Findings CBC and BMP: 05/12/23 07:35 05/12/23 07:35 PT/INR, D-dimer PT 14.1 sec (10.0-12.5) H 05/12/23 07:35 INR 1.4 (<1.2) H 05/12/23 07:35 D-Dimer 1.02 mg/L FEU (<0.60) H 05/11/23 00:54 Abnormal lab findings: Abnormal Labs 05/11/23 05/11/23 05/11/23 00:54 00:54 00:54 WBC RBC 3.45 L Hgb 9.1 L Hct 27.5 L MCV 79.7 L RDW 16.4 H Neutrophils # PT 44.9 H INR 4.6 H APTT 41.6 H D-Dimer 1.02 H Sodium 131 L Chloride 93 L Glucose 103 H 05/11/23 05/12/23 05/12/23 13:54 07:35 07:35 WBC 11.3 H RBC 3.39 L Hgb 9.0 L Hct 27.6 L MCV RDW 16.7 H Neutrophils # 8.6 H PT 23.9 H INR 2.4 H APTT D-Dimer Sodium 133 L Chloride 93 L Glucose 110 H 05/12/23 07:35 WBC RBC Hgb Hct MCV RDW Neutrophils # PT 14.1 H INR 1.4 H APTT D-Dimer Sodium Chloride Glucose - Diagnostic Findings Chest x-ray: image reviewed Assessment and Plan Assessment: Recent diagnosis of metastatic lung adenocarcinoma, made by biopsy of right axillary mass and intestinal mass. Hemoptysis, likely secondary to lung cancer, as well as Coumadin-induced coagulopathy. History of chronic atrial fibrillation. Status post aortic valve replacement with a mechanical valve, 2019. History of CAD, with previous CABG. History of congestive heart failure, secondary to cardiomyopathy. History of hypertension. History of hyperlipidemia. History of psoriasis. History of traumatic brain injury. Plan: Plan dated 05/12/2023. The patient was seen by medical oncology. The patient has yet to receive treatment for his metastatic lung cancer. The patient's PT/INR, are now subtherapeutic. When he first presented, the patient had a Coumadin induced quite adenopathy. The patient is not complaining of any shortness of breath. We'll continue to follow make recommendations along the way. Prognosis is guarded. Time with Patient: Greater than 30
--- NOTE | 2023-05-12 14:41 | P.PN ---
Subjective Progress Note Date: 05/12/23 * 63-year-old gentleman with past medical history significant for newly diagnosed metastatic lung adenocarcinoma with intra-abdominal and brain metastases, history of atrial fibrillation, mechanical aortic valve, on anticoagulation with Coumadin, heart failure with reduced ejection fraction 35-40%, thoracic aortic aneurysm status post repair, hypertension, hyperlipidemia, mild nonobstructive coronary artery disease with a prolonged hospitalization in March including EGD and colonoscopy, episode of A. fib RVR as well as new diagnosis of metastatic lung adenocarcinoma presents with worsening shortness of breath ongoing for the last 4 days. Patient was discharged in April 20, on 3 L of oxygen, patient stated he had to bump his oxygen to 4 L, patient also complained of cough with streaks of blood/blood- tinged sputum. * Workup in ER included CBC which showed WBC of 8.8 hemoglobin 9.1 platelet 407, coagulation INR 4.6, d-dimer 1.02, serum chemistry showed sodium 131 potassium 3.7 chloride 90 3B UN 12 creatinine 0.6 * Patient tested negative for influenza, Covid and RSV * Chest x-ray obtained showed hilar mass on right, emphysematous changes noted * Patient was given 5 mg of oral vitamin K, and follow-up INR levels ordered, * He will be admitted to medical for with consultations from oncology, pulmonary medicine * 05/12/2023: Patient seen and evaluated at bedside, at bedside overnight p atient had no episode of hemoptysis. Hemoglobin remained stable oxygen requirements remained stable. At this time INR is subtherapeutic patient will be started back on Coumadin. He was seen by oncology and prognosis was discussed in detail on 05/11/23. Appreciate input from pulmonary medicine as well REVIEW OF SYSTEMS: Cough, shortness of breath improved , hemoptysis resolved CONSTITUTIONAL: No fever, no malaise, no fatigue. HEENT: No recent visual problems or hearing problems. Denied any sore throat. CARDIOVASCULAR: No chest pain, orthopnea, PND, no palpitations, no syncope. PULMONARY: No shortness of breath, no cough, no hemoptysis. GASTROINTESTINAL: No diarrhea, no nausea, no vomiting, no abdominal pain. NEUROLOGICAL: No headaches, no weakness, no numbness. HEMATOLOGICAL: Denies any bleeding or petechiae. GENITOURINARY: Denies any burning micturition, frequency, or urgency. MUSCULOSKELETAL/RHEUMATOLOGICAL: Denies any joint pain, swelling, or any muscle pain. ENDOCRINE: Denies any polyuria or polydipsia. PHYSICAL EXAMINATION: GENERAL: The patient is alert and oriented x3, ill appearance, nasal cannula in place HEENT: Pupils are round and equally reacting to light. EOMI. CARDIOVASCULAR: S1 and S2 present. No murmurs, rubs, or gallops. PULMONARY: Decreased breath sounds bilaterally ABDOMEN: Soft, nontender, nondistended, normoactive bowel sounds. No palpable organomegaly. MUSCULOSKELETAL: No joint swelling or deformity. EXTREMITIES: No cyanosis, clubbing, or pedal edema. NEUROLOGICAL: Gross neurological examination did not reveal any focal deficits. SKIN: No rashes. Objective - Vital Signs Vital signs: Vital Signs Temp 97.5 F L 05/12/23 02:00 Pulse 92 05/12/23 12:02 Resp 18 05/12/23 11:05 BP 139/89 05/12/23 11:05 Pulse Ox 99 05/12/23 11:05 FiO2 Intake & Output 05/11/23 05/12/23 05/12/23 18:59 06:59 18:59 Weight 75.75 kg Other: Voiding Method Urinal - Labs CBC & Chem 7: 05/12/23 07:35 05/12/23 07:35 Labs: Abnormal Lab Results - Last 24 Hours (Table) 05/12/23 05/12/23 05/12/23 Range/Units 07:35 07:35 07:35 WBC 11.3 H (3.8-10.6) k/uL RBC 3.39 L (4.30-5.90) m/uL Hgb 9.0 L (13.0-17.5) gm/dL Hct 27.6 L (39.0-53.0) % RDW 16.7 H (11.5-15.5) % Neutrophils # 8.6 H (1.3-7.7) k/uL PT 14.1 H (10.0-12.5) sec INR 1.4 H (<1.2) Sodium 133 L (137-145) mmol/L Chloride 93 L (98-107) mmol/L Glucose 110 H (74-99) mg/dL Assessment and Plan Assessment: Assessment and plan * Metastatic adenocarcinoma of lung with intra-abdominal and brain metastases admitted with hemoptysis * Supratherapeutic INR with hemoptysis RESOLVED * Acute exacerbation of obstructive lung disease * Acute on chronic hypoxic respiratory failure * Chronic atrial fibrillation * Mechanical aortic valve * Chronic congestive heart failure with reduced ejection fraction of 35% * Acute on chronic anemia, blood loss anemia * Chronic cancer related pain * In regards to her metastatic adenocarcinoma with hemoptysis, supratherapeutic INR noted, patient was given vitamin K in ER, follow-up INR levels subtherapeutic, since hemoptysis has resolved patient started back on Coumadin * In regards to acute exacerbation of obstructive lung disease continue azithromycin, prednisone continue breathing treatments continue oxygen supplementation * In regards to history of atrial fibrillation, mechanical aortic valve, patient anticoagulation intermittently held due to concern for hemoptysis. She input from pulmonary medicine and oncology * In regards to chronic congestive heart failure continue patient on Lasix, gentle hydration IV fluid to be discontinued * In regards to acute on chronic anemia continue to follow up on CBC, transfuse for hemodynamic instability or hemoglobin less than 8 * In regards to cancer related pain continue with pain control * Status is full code
[2023-05-12] MEDS ORDERED: WARFARIN 7.5 MG TAB PO ONE (18:00)
[2023-05-13] MEDS: HYDROcodone/APAP 10-325MG 1 EACH TAB PO PRN ×2 (03:15→12:45)
[2023-05-13] MEDS: METOPROLOL TARTRATE 25 MG TAB PO SCH ×2 (09:05→21:54)
[2023-05-13] MEDS: predniSONE 20 MG TAB PO SCH (09:05)
[2023-05-13] MEDS: PANTOPRAZOLE 40 MG TABLET PO SCH ×2 (09:05→17:42)
[2023-05-13] MEDS: AZITHROMYCIN 500 MG TAB PO SCH (09:05)
[2023-05-13] MEDS: FUROSEMIDE 40 MG TAB PO SCH (09:06)
[2023-05-13] MEDS: guaiFENesin 600 MG TABLET.ER PO SCH ×2 (09:06→21:54)
[2023-05-13] MEDS: SYMBICORT 160-4.5 MCG INHALER INHALATION SCH ×2 (09:10→20:03)
[2023-05-13] MEDS: ALBUTEROL NEBULIZED 2.5 MG/3 ML INHALATION PRN ×3 (09:10→20:03)
[2023-05-13] MEDS: HYDROmorphone 0.5 MG/0.5 ML SYRINGE IVP PRN ×3 (09:17→21:59)
[2023-05-13 10:15] LABS: Anisocytosis Slight; HCT 27.2 % (39.0-53.0); HGB 8.6 gm/dL (13.0-17.5); Hypochromasia Moderate; MCH 26.3 pg (25.0-35.0); MCHC 31.6 g/dL (31.0-37.0); MCV 83.3 fL (80.0-100.0); Mean Platelet Volume 7.8; Platelet Count 415 k/uL (150-450); Poikilocytosis Slight; RBC 3.26 m/uL (4.30-5.90); RDW 16.8 % (11.5-15.5); WBC 9.2 k/uL (3.8-10.6)
[2023-05-13 10:43] LABS: INR 1.1 (<1.2); Prothrombin Time 11.5 sec (10.0-12.5)
[2023-05-13 11:11] LABS: African American GFR (CKD) >90 (>60 ml/min/1.73 sqM); Anion Gap 10 mmol/L; Blood Urea Nitrogen 9 mg/dL (9-20); Calcium 9.6 mg/dL (8.4-10.2); Carbon Dioxide 28 mmol/L (22-30); Chloride 98 mmol/L (98-107); Glucose 109 mg/dL (74-99); Non-African American GFR(CKD) >90 (>60 ml/min/1.73 sqM); Sodium 136 mmol/L (137-145)
--- NOTE | 2023-05-13 11:13 | P.PN ---
Subjective Progress Note Date: 05/13/23 Principal diagnosis: Hemoptysis, supratherapeutic INR, recent diagnosis of non-small cell lung cancer In follow-up today, patient is reporting increased right hip pain, most consi stent with his history of sciatica, he states that the hemoptysis has stopped, no shortness of breath. He has no other acute complaints on a 10 point review of systems. His however, has concerns for patient's changes in behavior, more aggressive, paranoid, some hallucinations in the night. Objective - Vital Signs Vital signs: Vital Signs Temp 97.6 F 05/13/23 08:50 Pulse 90 05/13/23 09:21 Resp 18 05/13/23 08:50 BP 118/76 05/13/23 08:50 Pulse Ox 95 05/13/23 09:10 FiO2 Intake & Output 05/12/23 05/13/23 05/13/23 18:59 06:59 18:59 Output Total 500 Balance -500 Output: Stool 500 Other: Voiding Method Urinal - Constitutional General appearance: Present: average body habitus, cooperative, mild distress - EENT Eyes: Present: anicteric sclerae, EOMI ENT: Present: hearing grossly normal - Respiratory Details: Respirations even and unlabored at rest - Cardiovascular Rhythm: regular - Integumentary Integumentary: Present: normal - Neurologic Neurologic: Present: CNII-XII intact (Grossly) - Musculoskeletal Musculoskeletal: Present: strength equal bilaterally - Psychiatric Psychiatric: Present: A&O x's 3, appropriate affect - Labs CBC & Chem 7: 05/13/23 09:50 05/12/23 07:35 Labs: Abnormal Lab Results - Last 24 Hours (Table) 05/13/23 Range/Units 09:50 RBC 3.26 L (4.30-5.90) m/uL Hgb 8.6 L (13.0-17.5) gm/dL Hct 27.2 L (39.0-53.0) % RDW 16.8 H (11.5-15.5) % Assessment and Plan (1) Supratherapeutic INR Current Visit: Yes Status: Acute Priority: High Code(s): R79.1 - ABNORMAL COAGULATION PROFILE SNOMED Code(s): 456042442 (2) Hemoptysis Current Visit: Yes Status: Acute Priority: High Code(s): R04.2 - HEMOPTYSIS SNOMED Code(s): 49156557 (3) Metastatic lung cancer (metastasis from lung to other site) Current Visit: Yes Status: Acute Priority: High Code(s): C34.90 - MALIGNANT NEOPLASM OF UNSP PART OF UNSP BRONCHUS OR LUNG SNOMED Code(s): 96105270 Plan: Supratherapeutic INR, hemoptysis -Hemoptysis has ceased after holding anticoagulation. INR is 1.1 today -As previously documented by Dr. Baron, INR is going to be challenging to manage especially during treatment of malignancy (appetite changes, dietary changes). Case was discussed with Cardiology, who is currently investigating risk versus benefit anticoagulation options for patient's situation. Pending their recommendations for anticoagulation. Non-small cell lung cancer with brain metastasis, new diagnosis -Due to see Medical Oncologist today to discuss treatment options. That appointment has been changed to 05/20 1299. -Patient's is reporting change in personality and unusual behaviors for the patient-see HPI. This is likely multifactorial including brain metastases, steroids, stress of new diagnosis. -Plans were to complete radiation treatment before initiating systemic treatment, pt was due to see Rad Onc to begin treatment. Have consulted so that plan can be developed and move pt treatment plan forward. -Patient will need to continue steroids at this time for symptomatic brain metastases, hopefully begin to taper in the near future. -Xanax has been ordered for patient's anxiety- states that he had taken in the past for anxiety and tolerated well. Once anticoagulation recommendations are made and Rad Onc has seen the patient, he is okay from a Medical Oncology standpoint to be discharged, as long as he is cleared from Attending and other consulting Physician's standpoints.
[2023-05-13 11:42] LABS: C Reactive Protein 3.3 mg/dL (<1.0)
[2023-05-13] MEDS: ALPRAZolam 0.5 MG TAB PO SCH ×2 (12:40→16:55)
--- NOTE | 2023-05-13 12:58 | P.PN ---
Subjective Progress Note Date: 05/13/23 * 63-year-old gentleman with past medical history significant for newly diagnosed metastatic lung adenocarcinoma with intra-abdominal and brain metastases, history of atrial fibrillation, mechanical aortic valve, on anticoagulation with Coumadin, heart failure with reduced ejection fraction 35-40%, thoracic aortic aneurysm status post repair, hypertension, hyperlipidemia, mild nonobstructive coronary artery disease with a prolonged hospitalization in March including EGD and colonoscopy, episode of A. fib RVR as well as new diagnosis of metastatic lung adenocarcinoma presents with worsening shortness of breath ongoing for the last 4 days. Patient was discharged in April 20, on 3 L of oxygen, patient stated he had to bump his oxygen to 4 L, patient also complained of cough with streaks of blood/blood- tinged sputum. * Workup in ER included CBC which showed WBC of 8.8 hemoglobin 9.1 platelet 407, coagulation INR 4.6, d-dimer 1.02, serum chemistry showed sodium 131 potassium 3.7 chloride 90 3B UN 12 creatinine 0.6 * Patient tested negative for influenza, Covid and RSV * Chest x-ray obtained showed hilar mass on right, emphysematous changes noted * Patient was given 5 mg of oral vitamin K, and follow-up INR levels ordered, * He will be admitted to medical for with consultations from oncology, pulmonary medicine * 05/12/2023: Patient seen and evaluated at bedside, at bedside overnight p atient had no episode of hemoptysis. Hemoglobin remained stable oxygen requirements remained stable. At this time INR is subtherapeutic patient will be started back on Coumadin. He was seen by oncology and prognosis was discussed in detail on 05/11/23. Appreciate input from pulmonary medicine as well * 05/13/2023: Patient seen and evaluated bedside, patient frustrated that he is unable to go to his room. Went to bed control and personally spoke with them regarding patient's being in the ER for several hours. Patient is first on the list to be transferred to the floor. Plan discussed with as well.. Hemoptysis has stopped breathing is improved patient is more irritable today. will wait for recommendations from radiation oncology and oncology respiratory status remained stable REVIEW OF SYSTEMS: Cough, shortness of breath resolved , hemoptysis resolved CONSTITUTIONAL: No fever, no malaise, no fatigue. HEENT: No recent visual problems or hearing problems. Denied any sore throat. CARDIOVASCULAR: No chest pain, orthopnea, PND, no palpitations, no syncope. PULMONARY: No shortness of breath, no cough, no hemoptysis. GASTROINTESTINAL: No diarrhea, no nausea, no vomiting, no abdominal pain. NEUROLOGICAL: No headaches, no weakness, no numbness. HEMATOLOGICAL: Denies any bleeding or petechiae. GENITOURINARY: Denies any burning micturition, frequency, or urgency. MUSCULOSKELETAL/RHEUMATOLOGICAL: Denies any joint pain, swelling, or any muscle pain. ENDOCRINE: Denies any polyuria or polydipsia. PHYSICAL EXAMINATION: GENERAL: The patient is alert and oriented x3,, nasal cannula in place HEENT: Pupils are round and equally reacting to light. EOMI. CARDIOVASCULAR: S1 and S2 present. No murmurs, rubs, or gallops. PULMONARY: Decreased breath sounds bilaterally ABDOMEN: Soft, nontender, nondistended, normoactive bowel sounds. No palpable organomegaly. MUSCULOSKELETAL: No joint swelling or deformity. EXTREMITIES: No cyanosis, clubbing, or pedal edema. NEUROLOGICAL: Gross neurological examination did not reveal any focal deficits. SKIN: No rashes. Objective - Vital Signs Vital signs: Vital Signs Temp 97.6 F 05/13/23 08:50 Pulse 90 05/13/23 09:21 Resp 18 05/13/23 08:50 BP 118/76 05/13/23 08:50 Pulse Ox 95 05/13/23 09:10 FiO2 Intake & Output 05/12/23 05/13/23 05/13/23 18:59 06:59 18:59 Output Total 500 Balance -500 Output: Stool 500 Other: Voiding Method Urinal - Labs CBC & Chem 7: 05/13/23 09:50 05/13/23 09:50 Labs: Abnormal Lab Results - Last 24 Hours (Table) 05/13/23 05/13/23 Range/Units 09:50 09:50 RBC 3.26 L (4.30-5.90) m/uL Hgb 8.6 L (13.0-17.5) gm/dL Hct 27.2 L (39.0-53.0) % RDW 16.8 H (11.5-15.5) % Sodium 136 L (137-145) mmol/L Glucose 109 H (74-99) mg/dL C-Reactive Protein 3.3 H (<1.0) mg/dL Assessment and Plan Assessment: Assessment and plan * Metastatic adenocarcinoma of lung with intra-abdominal and brain metastases admitted with hemoptysis * Supratherapeutic INR with hemoptysis RESOLVED * Acute exacerbation of obstructive lung disease * Acute on chronic hypoxic respiratory failure * Chronic atrial fibrillation * Mechanical aortic valve * Chronic congestive heart failure with reduced ejection fraction of 35% * Acute on chronic anemia, blood loss anemia * Chronic cancer related pain * In regards to her metastatic adenocarcinoma with hemoptysis, supratherapeutic INR noted, patient was given vitamin K in ER, follow-up INR levels subtherapeutic, since hemoptysis has resolved patient started back on Coum anthony, pharmacy to dose INR 1.1 * In regards to acute exacerbation of obstructive lung disease continue azithromycin. 5 day course, prednisone continue breathing treatments continue oxygen supplementation * In regards to history of atrial fibrillation, mechanical aortic valve, patient anticoagulation intermittently held due to concern for hemoptysis. She input from pulmonary medicine and oncology * In regards to chronic congestive heart failure continue patient on Lasix, gentle hydration IV fluid to be discontinued * In regards to acute on chronic anemia continue to follow up on CBC, transfuse for hemodynamic instability or hemoglobin less than 8 * In regards to cancer related pain continue with pain control, radiation oncology consulted * Status is full code
--- NOTE | 2023-05-13 14:27 | P.PN ---
Subjective Progress Note Date: 05/12/23 The patient denied any recurrent hemoptysis since his evaluation yesterday. No chest pain, or change in respiratory status. He was seen with his , was at the bedside. Objective - Vital Signs Vital signs: Vital Signs Temp 97.6 F 05/13/23 08:50 Pulse 90 05/13/23 09:21 Resp 18 05/13/23 08:50 BP 118/76 05/13/23 08:50 Pulse Ox 95 05/13/23 09:10 FiO2 Intake & Output 05/12/23 05/13/23 05/13/23 18:59 06:59 18:59 Output Total 500 Balance -500 Output: Stool 500 Other: Voiding Method Urinal - Constitutional General appearance: Present: no acute distress - EENT Eyes: Present: EOMI ENT: Present: hearing grossly normal, normal oropharynx - Respiratory Respiratory: bilateral: CTA - Cardiovascular Rhythm: irregularly irregular Heart sounds: normal: S1, S2 Abnormal Heart Sounds: Present: click - Gastrointestinal General gastrointestinal: Present: normal bowel sounds, soft - Integumentary Integumentary: Present: normal - Neurologic Neurologic: Present: CNII-XII intact - Musculoskeletal Musculoskeletal: Present: strength equal bilaterally - Labs CBC & Chem 7: 05/13/23 09:50 05/13/23 09:50 Labs: Abnormal Lab Results - Last 24 Hours (Table) 05/13/23 05/13/23 Range/Units 09:50 09:50 RBC 3.26 L (4.30-5.90) m/uL Hgb 8.6 L (13.0-17.5) gm/dL Hct 27.2 L (39.0-53.0) % RDW 16.8 H (11.5-15.5) % Sodium 136 L (137-145) mmol/L Glucose 109 H (74-99) mg/dL C-Reactive Protein 3.3 H (<1.0) mg/dL Assessment and Plan (1) Hemoptysis Narrative/Plan: He has not had recurrence of hemoptysis since he was evaluated yesterday. As noted, warfarin has been held, and the patient has received vitamin K for rev ersal of anti-coagulation. Hemoglobin has remained relatively stable. - I again discussed with the patient could potentially be at risk of recurrent hemoptysis, with resumption of anticoagulation. The risk would be highly or if his INR was supratherapeutic on warfarin. It was again discussed that the risk of problems in this regard could be increased in a patient with active malignancy, with effects of the same, as well as effects of active treatment, which would make INR regulation much more difficult. We will be discussing with cardiology regarding the possibility of switching anticoagulation, based on risk benefit, if justified, in this scenario. Current Visit: Yes Status: Acute Priority: High Code(s): R04.2 - HEMOPTYSIS SNOMED Code(s): 73234159 (2) Cancer, metastatic Narrative/Plan: The patient's diagnosis of widely metastatic pulmonary adenocarcinoma with brain metastasis was discussed in detail again with him, as well as was present at the bedside. The pathophysiology, as well as the incurable nature of his malignancy detailed to them. They were advised that the objective of treatment would be prolongation of life and palliation of symptoms. As the patient has been metastasis, and systemic therapy does not reliably treat the same, he will need radiation first. We typically do not to radiation and systemic therapy together, as there is generally increase risk of adverse events, without added benefit. - They expressed understanding of the same. They will meet with radiation onco logy as an outpatient. A consult will be scheduled for them in patient so he can potentially start treatment as soon as possible. - We also discussed systemic treatment options for him. At this time biomarker testing has been ordered and results are pending. If he has appropriate biomarkers, he can be treated with targeted therapy in the front line. If not, the standard treatment would be, patient chemotherapy with carboplatin and Alimta, along with ICI. - And multiple questions which were answered in detail. They expressed poor comprehension of the clinical situation and the plan of treatment. Current Visit: No Status: Acute Code(s): C79.9 - SECONDARY MALIGNANT NEOPLASM OF UNSPECIFIED SITE SNOMED Code(s): 523114279
--- NOTE | 2023-05-13 17:48 | P.PN ---
Subjective Progress Note Date: 05/13/23 63-year-old male who was seen in the emergency department, on May 11. He was brought there by EMS. The patient came in with complaints of increasing shortness of breath, and hemoptysis. He's been coughing up bright red blood, for a couple of days, prior to admission. The patient had a recent diagnosis of metastatic adenocarcinoma of the lung. He had a right axillary biopsy, which was positive, for adenocarcinoma, and a bowel biopsy, as well. The patient on x-ray, has a right hilar mass the patient is on Coumadin, for both atrial fibrillation, and a mechanical valve. He was seen in the emergency department, room 20. He's not receiving any IV fluids. He is receiving oxygen at 3 L. His medical history includes atrial fibrillation, coronary disease, metastatic lung cancer, heart failure, hyperlipidemia, hypertension, chronic low back pain, traumatic brain injury, psoriasis, and previous aortic valve replacement. The patient has a history of previous tobacco use. Patient has not yet started treatment for his lung cancer. Current laboratory data includes a white count 11.3, he will benign, hematocrit 27.6, and platelet count 432,000. The most recent PT/INR were 14.1 and 1.4. When he came into the hospital they were 44.9 and 4.6 respectively. Sodium 133, potassium 4.1, chlorides 93, CO2 30, BUN 11, creatinine 0.67. Viral screen was negative. Chest x-ray shows chronic emphysematous changes, and a known suspicious right hilar mass. On today's evaluation of 05/13/2023, patient is being seen for a follow-up. The patient denies having any recurrent hemoptysis since yesterday. Patient was taken off the warfarin and his coagulopathy was reversed with vitamin K and his hemoglobin remained stable for now. Hematology/oncologist on the case. Patient is being considered to be switched to an alternative anticoagulants due to the fluctuation of the PT/INR while on warfarin. Note that the patient has history of atrial fibrillation and a previously inserted mechanical aortic valve. Has been maintained on anticoagulation. This the treatment of choice for mechanical valves and A. fib. Is known to have also coronary artery disease, congestion heart failure, hyperlipidemia, hypertension, psoriasis and chronic back pain. Mother the patient is known to have metastatic pulmonary adenocarcinoma with NUCLEAR POWERPLANT MECHANIC involvement. Awaiting biomarker studies in consultation for targeted treatment versus systemic chemotherapy. Patient's INR is down to 1.1 Objective - Vital Signs Vital signs: Vital Signs Temp 97.9 F 05/13/23 14:45 Pulse 89 05/13/23 16:15 Resp 18 05/13/23 14:45 BP 119/72 05/13/23 14:45 Pulse Ox 98 05/13/23 14:45 FiO2 Intake & Output 05/12/23 05/13/23 05/13/23 18:59 06:59 18:59 Output Total 500 Balance -500 Output: Stool 500 Other: Voiding Method Urinal - Exam No acute distress, oriented 3. The patient is currently on 3 L of oxygen by nasal cannula. HEENT examination is grossly unremarkable. Mucous membranes are moist. No oral lesions. Neck supple. Full range of motion. No adenopathy thyromegaly or neck vein distention. Cardiovascular examination reveals regular rhythm rate. S1-S2 normal. No S3 or S4. No discernible murmur noted. Heart rate 92 bpm Lungs reveal scattered bilateral rhonchi. No wheezes. No crackles. Breath sounds are equal. 3 L saturation is 99%. Abdomen soft bowel sounds are heard. No masses or tenderness. Extremities are intact. No cyanosis clubbing or edema. Skin is without rash or lesion. Neurologic examination is brief but nonfocal. - Labs CBC & Chem 7: 05/13/23 09:50 05/13/23 09:50 Labs: Abnormal Lab Results - Last 24 Hours (Table) 05/13/23 05/13/23 Range/Units 09:50 09:50 RBC 3.26 L (4.30-5.90) m/uL Hgb 8.6 L (13.0-17.5) gm/dL Hct 27.2 L (39.0-53.0) % RDW 16.8 H (11.5-15.5) % Sodium 136 L (137-145) mmol/L Glucose 109 H (74-99) mg/dL C-Reactive Protein 3.3 H (<1.0) mg/dL Assessment and Plan Plan: Metastatic adenocarcinoma of the lung and diagnosis was made by biopsy of the exiting mass and intestinal mass. The patient has NUCLEAR POWERPLANT MECHANIC metastases. The patient has extensive mediastinal and the right hilar soft tissue masses and the lymphadenopathy consistent with metastatic disease. Patient also has enlarged right axillary lymph node and small bilateral pleural effusions and multiple bilateral pulmonary nodules and areas of groundglass opacity suggestive of metastases. Noted the right hilar mass surrounding the narrowed the bedside the pulmonary artery pressure was in the right upper lobe. Patient also has extensi ve upper abdominal metastases or in the liver and spleen. Acute hemoptysis secondary to lung cancer and coagulopathy who warfarin use, source being most likely the right lung base and the CAT scan findings Chronic atrial fibrillation Mechanical aortic valve placed in 2019 Coronary artery disease bypass surgery CHF Hypertension Hyperlipidemia Psoriasis Previous history of traumatic brain injury. Brain metastases with a left occipital lobe peripherally enhancing lesion suspicious for metastases and hemosiderin the position suggestive of prior hemorrhage. No evidence of any acute or subacute infarction based on MRI of the brain that was done on 04/26/2023. Anemia chronic disease Plan No active hemoptysis for now and the patient's hemoglobin is stable. Coagulopathy has been reversed. Based on the presence of a mechanical valve, the patient is to be on warfarin. The patient will be restarted back on Coumadin with tight control of the PT/INR to be maintained between 2 and 3. Oncology is on the case. The patient may benefit from radiation therapy there is recurrent hemoptysis. There is a very poor prognosis based on above- mentioned comorbidities. We'll collaborate with oncology.
[2023-05-13] MEDS ORDERED: WARFARIN 7.5 MG TAB PO ONE (18:00)
[2023-05-14] MEDS: ALPRAZolam 0.5 MG TAB PO SCH ×4 (00:57→20:03)
[2023-05-14] MEDS: HYDROcodone/APAP 10-325MG 1 EACH TAB PO PRN ×2 (03:06→12:16)
[2023-05-14] MEDS: HYDROmorphone 0.5 MG/0.5 ML SYRINGE IVP PRN ×2 (05:51→16:03)
[2023-05-14 07:18] LABS: Glucose,Whole Blood 116 mg/dL (70-110)
[2023-05-14 07:20] LABS: INR 1.2 (<1.2); Prothrombin Time 12.5 sec (10.0-12.5)
[2023-05-14] MEDS: ALBUTEROL NEBULIZED 2.5 MG/3 ML INHALATION PRN ×2 (07:25→18:25)
[2023-05-14] MEDS: SYMBICORT 160-4.5 MCG INHALER INHALATION SCH ×2 (07:25→18:25)
[2023-05-14] MEDS: AZITHROMYCIN 500 MG TAB PO SCH (08:10)
[2023-05-14] MEDS: predniSONE 20 MG TAB PO SCH (08:10)
[2023-05-14] MEDS: PANTOPRAZOLE 40 MG TABLET PO SCH ×2 (08:10→18:05)
[2023-05-14] MEDS: guaiFENesin 600 MG TABLET.ER PO SCH ×2 (08:10→20:03)
[2023-05-14] MEDS: FUROSEMIDE 40 MG TAB PO SCH (08:10)
[2023-05-14 10:47] LABS: HCT 23.4 % (39.6-50.0); HGB 7.2 g/dL (13.0-17.0); MCH 25.7 pg (27.0-32.0); MCHC 30.8 g/dL (32.0-37.0); MCV 83.6 FL (80.0-97.0); Mean Platelet Volume 10.1 FL (9.5-12.2); NRBC Per 100 WBC 0 X 10*3/uL (0.00-0.01); Platelet Count 350 X 10*3/uL (140-440); RDW 16.7 % (11.5-14.5); WBC 9.28 X 10*3/uL (4.50-10.00)
[2023-05-14 11:37] LABS: BUN/Creat Ratio 15.29 Ratio (12.00-20.00); Blood Urea Nitrogen 10.7 mg/dL (9.0-27.0); Calcium 9.2 mg/dL (8.7-10.3); Carbon Dioxide 28.4 mmol/L (21.6-31.8); Chloride 99 mmol/L (96-109); Glucose 93 mg/dL (70-110); Potassium 3.8 mmol/L (3.5-5.5); Sodium 138 mmol/L (135-145)
[2023-05-14] MEDS: METOPROLOL TARTRATE 25 MG TAB PO SCH ×2 (12:22→20:04)
--- NOTE | 2023-05-14 13:13 | P.PN ---
Subjective Progress Note Date: 05/14/23 * 63-year-old gentleman with past medical history significant for newly diagnosed metastatic lung adenocarcinoma with intra-abdominal and brain metastases, history of atrial fibrillation, mechanical aortic valve, on anticoagulation with Coumadin, heart failure with reduced ejection fraction 35-40%, thoracic aortic aneurysm status post repair, hypertension, hyperlipidemia, mild nonobstructive coronary artery disease with a prolonged hospitalization in March including EGD and colonoscopy, episode of A. fib RVR as well as new diagnosis of metastatic lung adenocarcinoma presents with worsening shortness of breath ongoing for the last 4 days. Patient was discharged in April 20, on 3 L of oxygen, patient stated he had to bump his oxygen to 4 L, patient also complained of cough with streaks of blood/blood- tinged sputum. * Workup in ER included CBC which showed WBC of 8.8 hemoglobin 9.1 platelet 407, coagulation INR 4.6, d-dimer 1.02, serum chemistry showed sodium 131 potassium 3.7 chloride 90 3B UN 12 creatinine 0.6 * Patient tested negative for influenza, Covid and RSV * Chest x-ray obtained showed hilar mass on right, emphysematous changes noted * Patient was given 5 mg of oral vitamin K, and follow-up INR levels ordered, * He will be admitted to medical for with consultations from oncology, pulmonary medicine * 05/12/2023: Patient seen and evaluated at bedside, at bedside overnight p atient had no episode of hemoptysis. Hemoglobin remained stable oxygen requirements remained stable. At this time INR is subtherapeutic patient will be started back on Coumadin. He was seen by oncology and prognosis was discussed in detail on 05/11/23. Appreciate input from pulmonary medicine as well * 05/13/2023: Patient seen and evaluated bedside, patient frustrated that he is unable to go to his room. Went to bed control and personally spoke with them regarding patient's being in the ER for several hours. Patient is first on the list to be transferred to the floor. Plan discussed with as well.. Hemoptysis has stopped breathing is improved patient is more irritable today. will wait for recommendations from radiation oncology and oncology respiratory status remained stable * 05/14/2023: Patient seen and evaluated bedside, patient is feeling better today. Patient did have streaks of hemoptysis just one episode. INR continues to remain subtherapeutic, patient been followed up by oncology, radiation oncology consulted as well. Appreciate input from pulmonary medicine REVIEW OF SYSTEMS: Cough, shortness of breath resolved , hemoptysis resolved CONSTITUTIONAL: No fever, no malaise, no fatigue. HEENT: No recent visual problems or hearing problems. Denied any sore throat. CARDIOVASCULAR: No chest pain, orthopnea, PND, no palpitations, no syncope. PULMONARY: No shortness of breath, no cough, no hemoptysis. GASTROINTESTINAL: No diarrhea, no nausea, no vomiting, no abdominal pain. NEUROLOGICAL: No headaches, no weakness, no numbness. HEMATOLOGICAL: Denies any bleeding or petechiae. GENITOURINARY: Denies any burning micturition, frequency, or urgency. MUSCULOSKELETAL/RHEUMATOLOGICAL: Denies any joint pain, swelling, or any muscle pain. ENDOCRINE: Denies any polyuria or polydipsia. PHYSICAL EXAMINATION: GENERAL: The patient is alert and oriented x3,, nasal cannula in place HEENT: Pupils are round and equally reacting to light. EOMI. CARDIOVASCULAR: S1 and S2 present. No murmurs, rubs, or gallops. PULMONARY: Decreased breath sounds bilaterally ABDOMEN: Soft, nontender, nondistended, normoactive bowel sounds. No palpable organomegaly. MUSCULOSKELETAL: No joint swelling or deformity. EXTREMITIES: No cyanosis, clubbing, or pedal edema. NEUROLOGICAL: Gross neurological examination did not reveal any focal deficits. SKIN: No rashes. Objective - Vital Signs Vital signs: Vital Signs Temp 97.3 F L 05/14/23 07:20 Pulse 91 05/14/23 12:10 Resp 18 05/14/23 07:20 BP 114/75 05/14/23 12:10 Pulse Ox 99 05/14/23 12:10 FiO2 Intake & Output 05/13/23 05/14/23 05/14/23 18:59 06:59 18:59 Intake Total 750 Balance 750 Intake: Oral 750 Other: Voiding Method Urinal Urinal # Voids 3 3 # Bowel Movements 0 - Labs CBC & Chem 7: 05/14/23 05:54 05/14/23 05:54 Labs: Abnormal Lab Results - Last 24 Hours (Table) 05/14/23 05/14/23 05/14/23 Range/Units 05:54 05:54 07:17 RBC 2.80 L (4.40-5.60) X 10*6/uL Hgb 7.2 L (13.0-17.0) g/dL Hct 23.4 L (39.6-50.0) % MCH 25.7 L (27.0-32.0) pg MCHC 30.8 L (32.0-37.0) g/dL RDW 16.7 H (11.5-14.5) % INR 1.2 H (<1.2) POC Glucose (mg/dL) 116 H (70-110) mg/dL Assessment and Plan Assessment: Assessment and plan * Metastatic adenocarcinoma of lung with intra-abdominal and brain metastases a dmitted with hemoptysis * Supratherapeutic INR with hemoptysis RESOLVED * Acute exacerbation of obstructive lung disease * Acute on chronic hypoxic respiratory failure * Chronic atrial fibrillation * Mechanical aortic valve * Chronic congestive heart failure with reduced ejection fraction of 35% * Acute on chronic anemia, blood loss anemia * Chronic cancer related pain * In regards to her metastatic adenocarcinoma with hemoptysis, supratherapeutic INR noted, patient was given vitamin K in ER, follow-up INR levels subtherapeutic, since hemoptysis has resolved patient started back on Coumadi n, pharmacy to dose INR 1.2. * In regards to acute exacerbation of obstructive lung disease, treated with azithromycin, prednisone continue breathing treatments continue oxygen supplementation * In regards to history of atrial fibrillation, mechanical aortic valve, patient anticoagulation intermittently held due to concern for hemoptysis. Appreciate input from pulmonary medicine and oncology * In regards to chronic congestive heart failure continue patient on Lasix, after hydration IV fluid to be discontinued * In regards to acute on chronic anemia continue to follow up on CBC, transfuse for hemodynamic instability or hemoglobin less than 8 * In regards to cancer related pain continue with pain control, radiation oncology consulted * Status is full code
--- NOTE | 2023-05-14 13:49 | P.PN ---
Subjective Progress Note Date: 05/14/23 63-year-old male who was seen in the emergency department, on May 11. He was brought there by EMS. The patient came in with complaints of increasing shortness of breath, and hemoptysis. He's been coughing up bright red blood, for a couple of days, prior to admission. The patient had a recent diagnosis of metastatic adenocarcinoma of the lung. He had a right axillary biopsy, which was positive, for adenocarcinoma, and a bowel biopsy, as well. The patient on x-ray, has a right hilar mass the patient is on Coumadin, for both atrial fibrillation, and a mechanical valve. He was seen in the emergency department, room 20. He's not receiving any IV fluids. He is receiving oxygen at 3 L. His medical history includes atrial fibrillation, coronary disease, metastatic lung cancer, heart failure, hyperlipidemia, hypertension, chronic low back pain, traumatic brain injury, psoriasis, and previous aortic valve replacement. The patient has a history of previous tobacco use. Patient has not yet started treatment for his lung cancer. Current laboratory data includes a white count 11.3, he will benign, hematocrit 27.6, and platelet count 432,000. The most recent PT/INR were 14.1 and 1.4. When he came into the hospital they were 44.9 and 4.6 respectively. Sodium 133, potassium 4.1, chlorides 93, CO2 30, BUN 11, creatinine 0.67. Viral screen was negative. Chest x-ray shows chronic emphysematous changes, and a known suspicious right hilar mass. On today's evaluation of 05/13/2023, patient is being seen for a follow-up. The patient denies having any recurrent hemoptysis since yesterday. Patient was taken off the warfarin and his coagulopathy was reversed with vitamin K and his hemoglobin remained stable for now. Hematology/oncologist on the case. Patient is being considered to be switched to an alternative anticoagulants due to the fluctuation of the PT/INR while on warfarin. Note that the patient has history of atrial fibrillation and a previously inserted mechanical aortic valve. Has been maintained on anticoagulation. This the treatment of choice for mechanical valves and A. fib. Is known to have also coronary artery disease, congestion heart failure, hyperlipidemia, hypertension, psoriasis and chronic back pain. 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 Awaiting biomarker studies in consultation for targeted treatment versus systemic chemotherapy. Patient's INR is down to 1.1 On today's evaluation was 05/14/2023, no active hemoptysis. The patient is on warfarin and PT/INR is being monitored. The patient was given 7.5 mg of warfarin today. Patient is on Lasix 40 mg by mouth daily. The patient is on prednisone 40 mg by mouth this part of burst taper and Ventolin nevertheless treatments [id number] and Symbicort as maintenance. Labs from today shows a scuba 0.2, hemoglobin is at 7.2, INR is at 1.2, BUN is at 10 with a creatinine of 0.7 and a sodium level is 138. No focal neurological deficits. No significant hemoptysis. The patient was seen by oncology and radiation oncology regarding his metastatic carcinoma. Objective - Vital Signs Vital signs: Vital Signs Temp 97.3 F L 05/14/23 07:20 Pulse 86 05/14/23 09:56 Resp 18 05/14/23 07:20 BP 100/66 05/14/23 09:56 Pulse Ox 95 05/14/23 07:20 FiO2 Intake & Output 05/13/23 05/14/23 05/14/23 18:59 06:59 18:59 Intake Total 750 Balance 750 Intake: Oral 750 Other: Voiding Method Urinal Urinal # Voids 3 3 # Bowel Movements 0 - Exam No acute distress, oriented 3. The patient is currently on 3 L of oxygen by nasal cannula. HEENT examination is grossly unremarkable. Mucous membranes are moist. No oral lesions. Neck supple. Full range of motion. No adenopathy thyromegaly or neck vein distention. Cardiovascular examination reveals regular rhythm rate. S1-S2 normal. No S3 or S4. No discernible murmur noted. Heart rate 92 bpm Lungs reveal scattered bilateral rhonchi. No wheezes. No crackles. Breath sounds are equal. 3 L saturation is 99%. Abdomen soft bowel sounds are heard. No masses or tenderness. Extremities are intact. No cyanosis clubbing or edema. Skin is without rash or lesion. Neurologic examination is brief but nonfocal. - Labs CBC & Chem 7: 05/14/23 05:54 05/14/23 05:54 Labs: Abnormal Lab Results - Last 24 Hours (Table) 01/16/24 01/16/24 01/16/24 Range/Units 05:54 05:54 07:17 RBC 2.80 L (4.40-5.60) X 10*6/uL Hgb 7.2 L (13.0-17.0) g/dL Hct 23.4 L (39.6-50.0) % MCH 25.7 L (27.0-32.0) pg MCHC 30.8 L (32.0-37.0) g/dL RDW 16.7 H (11.5-14.5) % INR 1.2 H (<1.2) POC Glucose (mg/dL) 116 H (70-110) mg/dL Assessment and Plan Plan: Metastatic adenocarcinoma of the lung and diagnosis was made by biopsy of the exiting mass and intestinal mass. The patient has POWER [employer] MANAGER metastases. The patient has extensive mediastinal and the right hilar soft tissue masses and the lymphadenopathy consistent with metastatic disease. Patient also has enlarged right axillary lymph node and small bilateral pleural effusions and multiple bilateral pulmonary nodules and areas of groundglass opacity suggestive of meta stases. Noted the right hilar mass surrounding the narrowed the bedside the pulmonary artery pressure was in the right upper lobe. Patient also has extensive upper abdominal metastases or in the liver and spleen. Acute hemoptysis secondary to lung cancer and coagulopathy who warfarin use, source being most likely the right lung base and the CAT scan findings, currently inactive and stable Chronic atrial fibrillation, maintained on warfarin Mechanical aortic valve placed in 2019, maintain on warfarin Coronary artery disease bypass surgery CHF Hypertension Hyperlipidemia Psoriasis Previous history of traumatic brain injury. Brain metastases with a left occipital lobe peripherally enhancing lesion suspicious for metastases and hemosiderin the position suggestive of prior hemorrhage. No evidence of any acute or subacute infarction based on MRI of the brain that was done on 04/26/2023. Anemia chronic disease Plan No active hemoptysis for now and the patient's hemoglobin is stable. Coagulopathy has been reversed. The patient is back on warfarin 7.5 mg with close monitoring of the PT/INR Labs are all stable Complete the prednisone burst taper Continue Symbicort and albuterol HFA Radiation oncology consultation Consult medical oncology We'll follow
--- NOTE | 2023-05-14 14:57 | P.PN ---
Subjective Progress Note Date: 05/14/23 Principal diagnosis: Hemoptysis, supratherapeutic INR, recent diagnosis of non-small cell lung cancer In follow-up today, patient is much more oriented then he was yesterday, agrees that his mentation is improved. No hemoptysis, breathing is stable. He also feels that his anxiety and irritability are significantly improved on the Xanax. Objective - Vital Signs Vital signs: Vital Signs Temp 97.6 F 05/14/23 13:38 Pulse 98 05/14/23 13:38 Resp 20 05/14/23 13:38 BP 109/68 05/14/23 13:38 Pulse Ox 99 05/14/23 13:38 FiO2 Intake & Output 05/13/23 05/14/23 05/14/23 18:59 06:59 18:59 Intake Total 750 Balance 750 Intake: Oral 750 Other: Voiding Method Urinal Urinal # Voids 3 3 # Bowel Movements 0 - Constitutional General appearance: Present: average body habitus, cooperative, no acute distress - EENT Eyes: Present: anicteric sclerae, EOMI ENT: Present: hearing grossly normal - Respiratory Details: Respirations even and unlabored at rest - Cardiovascular Rhythm: regular - Peripheral edema leg Peripheral Edema: bilateral: None - Integumentary Integumentary: Present: normal - Neurologic Neurologic: Present: CNII-XII intact (Grossly) - Musculoskeletal Musculoskeletal: Present: strength equal bilaterally - Psychiatric Psychiatric: Present: A&O x's 3, appropriate affect, intact judgment & insight - Labs CBC & Chem 7: 05/14/23 05:54 05/14/23 05:54 Labs: Abnormal Lab Results - Last 24 Hours (Table) 05/14/23 05/14/23 05/14/23 Range/Units 05:54 05:54 07:17 RBC 2.80 L (4.40-5.60) X 10*6/uL Hgb 7.2 L (13.0-17.0) g/dL Hct 23.4 L (39.6-50.0) % MCH 25.7 L (27.0-32.0) pg MCHC 30.8 L (32.0-37.0) g/dL RDW 16.7 H (11.5-14.5) % INR 1.2 H (<1.2) POC Glucose (mg/dL) 116 H (70-110) mg/dL Assessment and Plan (1) Supratherapeutic INR Current Visit: Yes Status: Resolved Priority: High Code(s): R79.1 - ABNORMAL COAGULATION PROFILE SNOMED Code(s): 816744906 (2) Hemoptysis Current Visit: Yes Status: Acute Priority: High Code(s): R04.2 - HEMOPTYSIS SNOMED Code(s): 84974592 (3) Metastatic lung cancer (metastasis from lung to other site) Current Visit: Yes Status: Acute Priority: High Code(s): C34.90 - MALIGNANT NEOPLASM OF UNSP PART OF UNSP BRONCHUS OR LUNG SNOMED Code(s): 83470458 Plan: Supratherapeutic INR, hemoptysis -Hemoptysis has ceased after holding anticoagulation. INR is 1.1 today -As previously documented by Dr. Baron, INR is going to be challenging to manage especially during treatment of malignancy (appetite changes, dietary changes). Pending Cardiology recommendations for anticoagulation. Non-small cell lung cancer with brain metastasis, new diagnosis -Medical Oncologist appointment changed to 05/20 1300. -NGS, PDL1 Pending -Patient's reported change in personality and unusual behaviors for the patient yesterday, she feels he is much more like himself today. -Reviewed case with Radiation Oncologist. Reviewed MRI of the brain. Patient has one small 4 mm lesion in the brain without edema. Rad Onc does not feel that this is the cause of patient's symptoms. Isn't quite sure if this is even a metastasis. Pending Radiation Oncologist assessment and recommendations. -The prednisone that pt was on, I unfortunately thought was ordered as a taper for brain mets, it appears that it was resp c/o. From chart review this appears to be limited to 5 days. Now that it is not suspected that pt has symptomatic brain mets and concluded that his behaviors were more r/t stress, lack of sleep, irritability, may not have to taper steroids for that reason. -Xanax is reported by pt to be very helpful with helping him manage his emotions. Cont Pain -Will discuss with care team. Too many options to treat pain. Need to get it down to 1 long acting and 1 short acting pain med Once anticoagulation recommendations are made by Cardiology, plan for pain and Rad Onc has seen the patient, he is okay from a Medical Oncology standpoint to be discharged, as long as he is cleared from Attending and other consulting Physician's standpoints.
[2023-05-14] MEDS ORDERED: WARFARIN 7.5 MG TAB PO ONE (18:00)
[2023-05-15 02:05] VITALS: RESP 16
[2023-05-15] MEDS: HYDROcodone/APAP 10-325MG 1 EACH TAB PO PRN (06:03)
[2023-05-15] MEDS: SYMBICORT 160-4.5 MCG INHALER INHALATION SCH (07:28)
[2023-05-15] MEDS: ALBUTEROL NEBULIZED 2.5 MG/3 ML INHALATION PRN (07:28)
[2023-05-15 08:04] LABS: INR 1.5 (<1.2); Prothrombin Time 15.8 sec (10.0-12.5)
[2023-05-15] MEDS: FUROSEMIDE 40 MG TAB PO SCH (08:38)
[2023-05-15] MEDS: ALPRAZolam 0.5 MG TAB PO SCH (08:38)
[2023-05-15] MEDS: PANTOPRAZOLE 40 MG TABLET PO SCH (08:38)
[2023-05-15] MEDS: METOPROLOL TARTRATE 25 MG TAB PO SCH (08:39)
[2023-05-15] MEDS: guaiFENesin 600 MG TABLET.ER PO SCH (08:39)
[2023-05-15] MEDS: predniSONE 20 MG TAB PO SCH (08:39)
[2023-05-15] MEDS ORDERED: CYANOCOBALAMIN 1,000 MCG/ML 1 ML VIAL IM ONE (09:14)
[2023-05-15] MEDS ORDERED: FOLIC ACID 1 MG TAB PO SCH (09:15)
[2023-05-15 11:05] LABS: HCT 25.1 % (39.6-50.0); HGB 7.6 g/dL (13.0-17.0); MCH 25.9 pg (27.0-32.0); MCHC 30.3 g/dL (32.0-37.0); MCV 85.7 FL (80.0-97.0); Mean Platelet Volume 10.5 FL (9.5-12.2); NRBC Per 100 WBC 0 X 10*3/uL (0.00-0.01); Platelet Count 335 X 10*3/uL (140-440); RBC 2.93 X 10*6/uL (4.40-5.60); RDW 16.8 % (11.5-14.5); WBC 8.43 X 10*3/uL (4.50-10.00)
[2023-05-15 11:16] LABS: BUN/Creat Ratio 15.38 Ratio (12.00-20.00); Blood Urea Nitrogen 12.3 mg/dL (9.0-27.0); Calcium 9.5 mg/dL (8.7-10.3); Carbon Dioxide 29.7 mmol/L (21.6-31.8); Chloride 98 mmol/L (96-109); Glucose 100 mg/dL (70-110); Potassium 4.1 mmol/L (3.5-5.5); Sodium 137 mmol/L (135-145)
--- NOTE | 2023-05-15 12:48 | P.DS ---
Providers Date of admission: 05/11/23 03:33 Expected date of discharge: 05/15/23 Attending physician: Jaycob New Consults: 05/11/23 03:30 Consult Physician Urgent Consulting Provider: Cher Nicole Consult Reason/Comments: Hemoptysis, hx of adenocarcinoma Do you want consulting provider notified?: Yes 05/11/23 08:59 Consult Physician Routine Consulting Provider: Gagan Alvarez Consult Reason/Comments: Lung adenocarcinoma with hemoptysis Do you want consulting provider notified?: Yes 05/13/23 11:00 Consult Physician Routine Consulting Provider: Junior Giron Consult Reason/Comments: initiate treatment of symptomatic brain mets Do you want consulting provider notified?: Already Contacted Primary care physician: Physician Nonstaff Hospital Course: * 63-year-old gentleman with past medical history significant for newly diagnosed metastatic lung adenocarcinoma with intra-abdominal and brain metastases, history of atrial fibrillation, mechanical aortic valve, on anticoagulation with Coumadin, heart failure with reduced ejection fraction 35-40%, thoracic aortic aneurysm status post repair, hypertension, hyperlipidemia, mild nonobstructive coronary artery disease with a prolonged hospitalization in March including EGD and colonoscopy, episode of A. fib RVR as well as new diagnosis of metastatic lung adenocarcinoma presents with worsening shortness of breath ongoing for the last 4 days. Patient was discharged in April 20, on 3 L of oxygen, patient stated he had to bump his oxygen to 4 L, patient also complained of cough with streaks of blood/blood- tinged sputum. * Workup in ER included CBC which showed WBC of 8.8 hemoglobin 9.1 platelet 407, coagulation INR 4.6, d-dimer 1.02, serum chemistry showed sodium 131 potassium 3.7 chloride 90 3B UN 12 creatinine 0.6 * Patient tested negative for influenza, Covid and RSV * Chest x-ray obtained showed hilar mass on right, emphysematous changes noted * Patient was given 5 mg of oral vitamin K, and follow-up INR levels ordered, * He will be admitted to medical for with consultations from oncology, pulmonary medicine * 05/12/2023: Patient seen and evaluated at bedside, at bedside overnight patient had no episode of hemoptysis. Hemoglobin remained stable oxygen requirements remained stable. At this time INR is subtherapeutic patient will be started back on Coumadin. He was seen by oncology and prognosis was discussed in detail on 05/11/23. Appreciate input from pulmonary medicine as well * 05/13/2023: Patient seen and evaluated bedside, patient frustrated that he is unable to go to his room. Went to bed control and personally spoke with them regarding patient's being in the ER for several hours. Patient is first on the list to be transferred to the floor. Plan discussed with as well.. Hemoptysis has stopped breathing is improved patient is more irritable today. will wait for recommendations from radiation oncology and oncology respiratory status remained stable * 05/14/2023: Patient seen and evaluated bedside, patient is feeling better today. Patient did have streaks of hemoptysis just one episode. INR continues to remain subtherapeutic, patient been followed up by oncology, radiation oncology consulted as well. Appreciate input from pulmonary medicine * 05/15/2023: Patient seen and evaluated bedside. Upon evaluation patient is awake and alert patient requesting discharge. Patient requested prescription for pain medication. Discussed with oncology and they will write prescription for narcotics as well as benzodiazepine. Patient stated he will follow-up with oncology outpatient. His hip pain has improved hemoglobin remained stable REVIEW OF SYSTEMS: Cough, shortness of breath resolved , hemoptysis resolved CONSTITUTIONAL: No fever, no malaise, no fatigue. HEENT: No recent visual problems or hearing problems. Denied any sore throat. CARDIOVASCULAR: No chest pain, orthopnea, PND, no palpitations, no syncope. PULMONARY: No shortness of breath, no cough, no hemoptysis. GASTROINTESTINAL: No diarrhea, no nausea, no vomiting, no abdominal pain. NEUROLOGICAL: No headaches, no weakness, no numbness. HEMATOLOGICAL: Denies any bleeding or petechiae. GENITOURINARY: Denies any burning micturition, frequency, or urgency. MUSCULOSKELETAL/RHEUMATOLOGICAL: Denies any joint pain, swelling, or any muscle pain. ENDOCRINE: Denies any polyuria or polydipsia. PHYSICAL EXAMINATION: GENERAL: The patient is alert and oriented x3,, nasal cannula in place HEENT: Pupils are round and equally reacting to light. EOMI. CARDIOVASCULAR: S1 and S2 present. No murmurs, rubs, or gallops. PULMONARY: Decreased breath sounds bilaterally ABDOMEN: Soft, nontender, nondistended, normoactive bowel sounds. No palpable organomegaly. MUSCULOSKELETAL: No joint swelling or deformity. EXTREMITIES: No cyanosis, clubbing, or pedal edema. NEUROLOGICAL: Gross neurological examination did not reveal any focal deficits. SKIN: No rashes. Assessment: Assessment and plan * Metastatic adenocarcinoma of lung with intra-abdominal and brain metastases admitted with hemoptysis * Supratherapeutic INR with hemoptysis RESOLVED * Acute exacerbation of obstructive lung disease * Acute on chronic hypoxic respiratory failure * Chronic atrial fibrillation * Mechanical aortic valve * Chronic congestive heart failure with reduced ejection fraction of 35% * Acute on chronic anemia, blood loss anemia * Chronic cancer related pain * In regards to her metastatic adenocarcinoma with hemoptysis, supratherapeutic INR noted, patient was given vitamin K in ER, follow-up INR levels subtherapeutic, since hemoptysis has resolved patient started back on Coumadin, pharmacy to dose INR 1.5, oncology suggested to continue Coumadin with goal INR to remain close to low normal around 2.5. Outpatient follow-up with oncology * In regards to acute exacerbation of obstructive lung disease, treated with azithromycin, prednisone continue breathing treatments continue oxygen supplementation * In regards to history of atrial fibrillation, mechanical aortic valve, patient anticoagulation intermittently held due to concern for hemoptysis. Appreciate input from pulmonary medicine and oncology * In regards to chronic congestive heart failure continue patient on Lasix, after hydration IV fluid to be discontinued * In regards to acute on chronic anemia continue to follow up on CBC, transfuse for hemodynamic instability or hemoglobin less than 8 * In regards to cancer related pain continue with pain control, radiation oncology consulted >> oncology team to give prescription for pain medicine,Discussed with OPERATIONS PROCESSOR Patient Condition at Discharge: Fair Plan - Discharge Summary Discharge Rx Participant: Yes New Discharge Prescriptions: New Folic Acid 1 mg PO DAILY 30 Days #30 tab Budesonide-Formot 160-4.5 Mcg [Symbicort 160-4.5 Mcg Inhaler] 2 puff INHALATION RT-BID 30 Days #1 each Continue Baclofen 5 mg PO BID@0800,1300 Metoprolol Tartrate [Lopressor] 50 mg PO BID@0800,2000 Prochlorperazine [Compazine] 10 mg PO DAILY@0800 Warfarin [Coumadin] 7.5 mg PO DAILY@1999 Aspirin [Children's Aspirin] 81 mg PO DAILY@0800 Albuterol Inhaler [Ventolin Hfa Inhaler] 2 puff INHALATION RT-Q6H PRN PRN Reason: Shortness Of Breath Or Wheezing Pantoprazole [Protonix] 40 mg PO DAILY@0800 fentaNYL 25MCG/HR PATCH [Duragesic 25MCG/HR] 1 patch TOPICAL Q72H Furosemide [Lasix] 40 mg PO DAILY@0800 Discontinued oxyCODONE HCL [oxyCODONE HCL (IR)] 5 mg PO Q6H PRN 3 Days #12 cap PRN Reason: Severe Breakthrough Pain HYDROcodone/APAP 10-325MG [[place] 10-325] 1 tab PO Q4HR PRN PRN Reason: Pain Discharge Medication List Aspirin [Children's Aspirin] 81 mg PO DAILY@0800 11/11/22 [History] Albuterol Inhaler [Ventolin Hfa Inhaler] 2 puff INHALATION RT-Q6H PRN 01/29/23 [History] Baclofen 5 mg PO BID@0800,1300 05/11/23 [History] Furosemide [Lasix] 40 mg PO DAILY@0800 05/11/23 [History] Metoprolol Tartrate [Lopressor] 50 mg PO BID@0800,199905/11/23 [History] Pantoprazole [Protonix] 40 mg PO DAILY@0800 05/11/23 [History] Prochlorperazine [Compazine] 10 mg PO DAILY@0805/11/23 [History] Warfarin [Coumadin] 7.5 mg PO DAILY@199905/11/23 [History] fentaNYL 25MCG/HR PATCH [Duragesic 25MCG/HR] 1 patch TOPICAL Q72H 05/11/23 [Hist ory] Budesonide-Formot 160-4.5 Mcg [Symbicort 160-4.5 Mcg Inhaler] 2 puff INHALATION RT-BID 30 Days #1 each 05/15/23 [Rx] Folic Acid 1 mg PO DAILY 30 Days #30 tab 05/15/23 [Rx] Follow up Appointment(s)/Referral(s): Cher Nicole MD [STAFF PHYSICIAN] - 05/20/23 1:00 pm Nonstaff,Physician [Primary Care Provider] - 1-2 days Discharge Disposition: HOME SELF-CARE
[2023-05-15 12:59] VITALS: BP 103/65; PULSE 87; TEMP 97.5
--- NOTE | 2023-05-15 13:26 | P.PN ---
Subjective Progress Note Date: 05/15/23 Principal diagnosis: Hemoptysis, supratherapeutic INR, recent diagnosis of non-small cell lung cancer In follow-up today, patient is ambulating independently, denies any further h emoptysis. He reports adequate pain and anxiety control at this time. Objective - Vital Signs Vital signs: Vital Signs Temp 97.6 F 05/15/23 07:29 Pulse 84 05/15/23 07:45 Resp 16 05/15/23 07:29 BP 113/74 05/15/23 07:29 Pulse Ox 99 05/15/23 07:29 FiO2 Intake & Output 05/14/23 05/15/23 05/15/23 18:59 06:59 18:59 Intake Total 240 Output Total 2 Balance -2 240 Intake: Oral 240 Output: Urine 2 Other: Voiding Method Urinal Urinal Urinal # Voids 1 - Constitutional General appearance: Present: average body habitus, cooperative, no acute distress - EENT Eyes: Present: anicteric sclerae, EOMI ENT: Present: hearing grossly normal - Respiratory Details: resp even and unlabored while ambulatory - Cardiovascular Details: skin warm and dry to touch - Peripheral edema leg Peripheral Edema: bilateral: None - Integumentary Integumentary: Present: normal - Neurologic Neurologic: Present: CNII-XII intact - Musculoskeletal Musculoskeletal: Present: strength equal bilaterally - Psychiatric Psychiatric: Present: A&O x's 3, appropriate affect, intact judgment & insight - Labs CBC & Chem 7: 05/15/23 06:29 05/15/23 06:29 Labs: Abnormal Lab Results - Last 24 Hours (Table) 05/15/23 05/15/23 Range/Units 06:29 06:29 RBC 2.93 L (4.40-5.60) X 10*6/uL Hgb 7.6 L (13.0-17.0) g/dL Hct 25.1 L (39.6-50.0) % MCH 25.9 L (27.0-32.0) pg MCHC 30.3 L (32.0-37.0) g/dL RDW 16.8 H (11.5-14.5) % PT 15.8 H (10.0-12.5) sec INR 1.5 H (<1.2) Assessment and Plan (1) Supratherapeutic INR Current Visit: Yes Status: Resolved Priority: High Code(s): R79.1 - ABNORMAL COAGULATION PROFILE SNOMED Code(s): 602525948 (2) Hemoptysis Current Visit: Yes Status: Acute Priority: High Code(s): R04.2 - HEMOPTYSIS SNOMED Code(s): 17088324 (3) Metastatic lung cancer (metastasis from lung to other site) Current Visit: Yes Status: Acute Priority: High Code(s): C34.90 - MALIGNANT NEOPLASM OF UNSP PART OF UNSP BRONCHUS OR LUNG SNOMED Code(s): 80457859 Plan: Supratherapeutic INR, hemoptysis -Hemoptysis has ceased after holding anticoagulation. INR is 1.5 today -As previously documented by Dr. Baron, INR is going to be challenging to manage especially during treatment of malignancy (appetite changes, dietary changes). Did collaborate with Cardiology for recommendations for anticoagulation. For type of valve pt has coumadin is superior to DOAC. Aiming for an INR 1.5-2.5 while on chemo as INR is going to be highly variable on chemotherapy because of changes in appetite and oral intake and blood counts. Appreciate their time reviewing case and getting back with us with recommendations Non-small cell lung cancer with brain metastasis, new diagnosis -Medical Oncologist appointment 05/20 1299. -NGS reported no mutations amenable to targeted therapy. PDL1 Pending -Radiation Oncologist has seen patient. No steroids or radiation planned at th is time. Short-term follow-up MRI of the brain in about 6 weeks -In anticipation of starting treatment next week with folate antagonist agent, 1000mcg cyanocobalamin IM given 1, patient started on 1 mg of folic acid daily. Prescription for folic acid also sent to [facility]. -Xanax is reported by pt to be very helpful with helping him manage his emotions and stress of diagnosis. Cont, Rx sent to [facility] Pain -Discussed with Attending and RN -Plan for fentanyl and OxyIR PRN for breakthrough pain. Discontinue Cecil. Prescriptions sent to [facility]. Prescriptions sent from the Oncology office as Rx needs to be greater than 3 days to get patient to his next appo intment in the office. -Instructions for prevention of narcotic-induced constipation placed in the discharge plan Time with Patient: Greater than 30 (>60 min spent counseling and coordinating care)
--- NOTE | 2023-05-15 15:14 | P.PN ---
Subjective Progress Note Date: 05/15/23 63-year-old male who was seen in the emergency department, on May 11. He was brought there by EMS. The patient came in with complaints of increasing shortness of breath, and hemoptysis. He's been coughing up bright red blood, for a couple of days, prior to admission. The patient had a recent diagnosis of metastatic adenocarcinoma of the lung. He had a right axillary biopsy, which was positive, for adenocarcinoma, and a bowel biopsy, as well. The patient on x-ray, has a right hilar mass the patient is on Coumadin, for both atrial fibrillation, and a mechanical valve. He was seen in the emergency department, room 20. He's not receiving any IV fluids. He is receiving oxygen at 3 L. His medical history includes atrial fibrillation, coronary disease, metastatic lung cancer, heart failure, hyperlipidemia, hypertension, chronic low back pain, traumatic brain injury, psoriasis, and previous aortic valve replacement. The patient has a history of previous tobacco use. Patient has not yet started treatment for his lung cancer. Current laboratory data includes a white count 11.3, he will benign, hematocrit 27.6, and platelet count 432,000. The most recent PT/INR were 14.1 and 1.4. When he came into the hospital they were 44.9 and 4.6 respectively. Sodium 133, potassium 4.1, chlorides 93, CO2 30, BUN 11, creatinine 0.67. Viral screen was negative. Chest x-ray shows chronic emphysematous changes, and a known suspicious right hilar mass. On today's evaluation of 05/13/2023, patient is being seen for a follow-up. The patient denies having any recurrent hemoptysis since yesterday. Patient was taken off the warfarin and his coagulopathy was reversed with vitamin K and his hemoglobin remained stable for now. Hematology/oncologist on the case. Patient is being considered to be switched to an alternative anticoagulants due to the fluctuation of the PT/INR while on warfarin. Note that the patient has history of atrial fibrillation and a previously inserted mechanical aortic valve. Has been maintained on anticoagulation. This the treatment of choice for mechanical valves and A. fib. Is known to have also coronary artery disease, congestion heart failure, hyperlipidemia, hypertension, psoriasis and chronic back pain. Mother the patient is known to have metastatic pulmonary adenocarcinoma with PLAN CHECKER involvement. Awaiting biomarker studies in consultation for targeted treatment versus systemic chemotherapy. Patient's INR is down to 1.1 On today's evaluation was 05/14/2023, no active hemoptysis. The patient is on warfarin and PT/INR is being monitored. The patient was given 7.5 mg of warfarin today. Patient is on Lasix 40 mg by mouth daily. The patient is on prednisone 40 mg by mouth this part of burst taper and Ventolin nevertheless treatments [id number] and Symbicort as maintenance. Labs from today shows a [place] 0.2, hemoglobin is at 7.2, INR is at 1.2, BUN is at 10 with a creatinine of 0.7 and a sodium level is 138. No focal neurological deficits. No significant hemoptysis. The patient was seen by oncology and radiation oncology regarding his metastatic carcinoma. On 05/15/2023, no active hemoptysis and the patient is back on warfarin. INR today is at 1.5 and the patient is doing well. No significant confusion. Radiation oncology limited the patient and there is no role for radiation therapy to the brain. The patient is ambulating independently. He has no major respiratory difficulties. He has a new diagnosis of metastatic non-small cell lung cancer and the patient will need outpatient workup including next g eneration genetic sequencing and PDL 1 analysis and decide on treatment accordingly. A repeat MRI of the brain will be done in 6 weeks' time. No plantar lesions of the brain at this point in time. He is anxious and is requesting some Xanax. Objective - Vital Signs Vital signs: Vital Signs Temp 97.6 F 05/15/23 07:29 Pulse 84 05/15/23 07:45 Resp 16 05/15/23 07:29 BP 113/74 05/15/23 07:29 Pulse Ox 99 05/15/23 07:29 FiO2 Intake & Output 05/14/23 05/15/23 05/15/23 18:59 06:59 18:59 Intake Total 240 Output Total 2 Balance -2 240 Intake: Oral 240 Output: Urine 2 Other: Voiding Method Urinal Urinal Urinal # Voids 1 - Exam No acute distress, oriented 3. The patient is currently on 3 L of oxygen by nasal cannula. HEENT examination is grossly unremarkable. Mucous membranes are moist. No oral lesions. Neck supple. Full range of motion. No adenopathy thyromegaly or neck vein distention. Cardiovascular examination reveals regular rhythm rate. S1-S2 normal. No S3 or S4. No discernible murmur noted. Heart rate 92 bpm Lungs reveal scattered bilateral rhonchi. No wheezes. No crackles. Breath sounds are equal. 3 L saturation is 99%. Abdomen soft bowel sounds are heard. No masses or tenderness. Extremities are intact. No cyanosis clubbing or edema. Skin is without rash or lesion. Neurologic examination is brief but nonfocal. - Labs CBC & Chem 7: 05/15/23 06:29 05/15/23 06:29 Labs: Abnormal Lab Results - Last 24 Hours (Table) 05/15/23 Range/Units 06:29 PT 15.8 H (10.0-12.5) sec INR 1.5 H (<1.2) Assessment and Plan Plan: Metastatic adenocarcinoma of the lung and diagnosis was made by biopsy of the exiting mass and intestinal mass. The patient has PLAN CHECKER metastases. The patient has extensive mediastinal and the right hilar soft tissue masses and the lymphadenopathy consistent with metastatic disease. Patient also has enlarged right axillary lymph node and small bilateral pleural effusions and multiple bilateral pulmonary nodules and areas of groundglass opacity suggestive of metastases. Noted the right hilar mass surrounding the narrowed the bedside the pulmonary artery pressure was in the right upper lobe. Patient also has extensive upper abdominal metastases or in the liver and spleen. Acute hemoptysis secondary to lung cancer and coagulopathy who warfarin use, source being most likely the right lung base and the CAT scan findings, currently inactive and stable Chronic atrial fibrillation, maintained on warfarin Mechanical aortic valve placed in 2019, maintain on warfarin Coronary artery disease bypass surgery CHF Hypertension Hyperlipidemia Psoriasis Previous history of traumatic brain injury. Brain metastases with a left occipital lobe peripherally enhancing lesion suspicious for metastases and hemosiderin the position suggestive of prior hemorrhage. No evidence of any acute or subacute infarction based on MRI of the brain that was done on 04/26/2023. The patient was seen by radiation oncology. No need for radiation therapy at this point in time. Anemia chronic disease Plan No active hemoptysis for now and the patient's hemoglobin is stable. The patient is back on warfarin and the patient has being monitored very closely. INR is at 1.5. We are going to target an INR between 2 and 2.5. Monitor for any future episodes of hemoptysis. The patient is back on warfarin. Labs are all stable Complete the prednisone burst taper Continue Symbicort and albuterol HFA Radiation oncology consultation, an MRI of the brain will be repeated in 6 weeks' time. No plans for radiation therapy. No need for high-dose of insulin in time. The patient will need a prednisone burst taper at time of discharge. Anxiety for anxiety Consult medical oncology consultation is appreciated and the patient will need further workup including next generation sequencing and PDL 1 analysis and decide further treatment Possible home today We'll follow
[2023-05-15] MEDS ORDERED: WARFARIN 2 MG TAB PO ONE (18:00)
--- NOTE | 2023-05-17 11:09 | P.CONS ---
History of Present Illness - Reason for Consult Consult date: 05/14/23 Brain metastases Requesting physician: Cher Nicole - Chief Complaint "I am feeling better" - History of Present Illness Mr. Louis is a 63-year-old male with a metastatic pulmonary adenocarcinoma with concern for a left occipital metastasis. His pertinent history begins with abdominal pain, prompting EC presentation last month. He also noticed a mass in his right axilla. US-guided biopsy of the right axilla on 04/19/2023 demonstrated pulmonary adenocarcinoma. Colonoscopy on 04/23/2023 demonstrated a duodenal polyp, with biopsy also demonstrating metastatic pulmonary adenocarcinoma. MRI head on 04/26/2023 demonstrated a 5 mm lesion in the left occipital region with blooming artifact and peripheral enhancement. CT chest on 04/26/2023 demonstrated extensive mediastinal adenopathy with right hilar mass, right axillary lymph node, pulmonary nodules, and liver/speen metastases. He was discharged with plan for outpatient follow- up. However, he recently represented to the hospital with hemoptysis and supratherapeutic INR. Both have since been corrected. Yesterday, he exhibited personality changes, including aggressiveness. We have been consulted for potent ial brain irradiation. He is not on steroids. He has never had cancer or radiation therapy. He does not have a pacemaker. He has chronic lower back pain which is attributable to degenerative spine disease. His hemoptysis has resolved. He denies dyspnea. Review of Systems as per HPI Past Medical History Past Medical History: Atrial Fibrillation, Coronary Artery Disease (CAD), Cancer, Heart Failure, Hyperlipidemia, Hypertension, Skin Disorder Additional Past Medical History / Comment(s): chronic lower back pain w/ Lt. sciatica, TBI, hiatal hernia, cardiomyopathy, psoriasis, CHF - had a recent script for Jardiance and states, "I'm not taking it, I saw it on t.v, all the side effects." diagnosed with lung cancer 03/2023 History of Any Multi-Drug Resistant Organisms: None Reported Past Surgical History: Cardiac Valve Replacement, Coronary Bypass/CABG Additional Past Surgical History / Comment(s): Rt. knee arthroscopy, jaw/facial reconstruction, aortic valve replacement w/ on-x mechanical valve & aortic root repair 2019 Past Anesthesia/Blood Transfusion Reactions: No Reported Reaction Past Psychological History: Anxiety, PTSD Smoking Status: Former smoker Past Alcohol Use History: None Reported Past Drug Use History: None Reported - Past Family History Mother Family Medical History: No Reported History Father Additional Family Medical History / Comment(s): Passed when patient was a child possibly related to heart disease. Medications and Allergies Home Medications Medication Instructions Recorded Confirmed Type Aspirin [Children's Aspirin] 81 mg PO DAILY@0800 11/11/22 05/11/23 History Albuterol Inhaler [Ventolin Hfa 2 puff INHALATION RT-Q6H PRN 01/29/23 05/11/23 History Inhaler] Baclofen 5 mg PO BID@0800,1300 05/11/23 05/11/23 History Furosemide [Lasix] 40 mg PO DAILY@0800 05/11/23 05/11/23 History Metoprolol Tartrate [Lopressor] 50 mg PO BID@0800,199905/11/23 05/11/23 History Pantoprazole [Protonix] 40 mg PO DAILY@0800 05/11/23 05/11/23 History Prochlorperazine [Compazine] 10 mg PO DAILY@0800 05/11/23 05/11/23 History Warfarin [Coumadin] 7.5 mg PO DAILY@199905/11/23 05/11/23 History fentaNYL 25MCG/HR PATCH [Duragesic 1 patch TOPICAL Q72H 05/11/23 05/11/23 History 25MCG/HR] Budesonide-Formot 160-4.5 Mcg 2 puff INHALATION RT-BID 30 Days 05/15/23 Rx [Symbicort 160-4.5 Mcg Inhaler] #1 each Folic Acid 1 mg PO DAILY 30 Days #30 tab 05/15/23 Rx Allergies Allergy/AdvReac Type Severity Reaction Status Date / Time acetaminophen Allergy Rash/Hives Verified 05/11/23 11:37 [From Darvocet-N 100] propoxyphene Allergy Rash/Hives Verified 05/11/23 11:37 [From Darvocet-N 100] amitriptyline [From Elavil] AdvReac NIGHTMARES Verified 05/11/23 11:37 hydralazine AdvReac MIGRAINES Verified 05/11/23 11:37 naproxen [From Naprosyn] AdvReac Nausea Verified 05/11/23 11:37 Physical Exam - Constitutional General appearance: average body habitus - Respiratory Respiratory: negative: prolonged expiration, prolonged inspiration - Neurologic no focal deficits - Psychiatric Psychiatric: A&O x's 3, appropriate affect, intact judgment & insight Results CBC & Chem 7: 05/15/23 06:29 05/15/23 06:29 Assessment and Plan Assessment: Mr. Louis is a 63-year-old male with a metastatic pulmonary adenocarcinoma with concern for a left occipital metastasis. Plan: The patient has a small left occipital lesion which is equivocal. Although there is a small degree of peripheral enhancement, there is no associated FLAIR abnormality. His personality changes, which have since improved, are unrelated to this area. My recommendation would be for short-term follow-up MRI brain in 6 weeks. He does not need to start steroids in the meantime. Consideration may be given for palliative radiation therapy to the chest in the future as well, but given his hemoptysis has resolved and his respiratory status is stable, this may be deferred for the time being. He is suitable for discharge from my perspective. We will coordinate outpatient follow-up. Keith Chawla MD Radiation Oncology Time with Patient: Greater than 30
== END 2023-05-15 14:28 | disposition home or self-care (01) | DRG 180 ==
LOC: EC 00:28 → 5NMEDONC 03:32 → OBSVTOIN 03:33 → 5NMEDONC 15:11
PROVIDERS: ADMIT Hospitalist; ATTEND Hospitalist
DX: C34.90 Malignant neoplasm of unspecified part of unspecified bronchus or lung (principal); J96.21 Acute and chronic respiratory failure with hypoxia; R04.2 Hemoptysis; I48.20 Chronic atrial fibrillation, unspecified; I50.22 Chronic systolic (congestive) heart failure; D62 Acute posthemorrhagic anemia; C78.00 Secondary malignant neoplasm of unspecified lung; C79.31 Secondary malignant neoplasm of brain; C79.89 Secondary malignant neoplasm of other specified sites; I42.9 Cardiomyopathy, unspecified; D68.9 Coagulation defect, unspecified; R79.1 Abnormal coagulation profile; Z79.01 Long term (current) use of anticoagulants; I11.0 Hypertensive heart disease with heart failure; Z95.2 Presence of prosthetic heart valve; G89.3 Neoplasm related pain (acute) (chronic); E78.5 Hyperlipidemia, unspecified; L40.9 Psoriasis, unspecified; I25.10 Atherosclerotic heart disease of native coronary artery without angina pectoris; R59.0 Localized enlarged lymph nodes; T45.515A Adverse effect of anticoagulants, initial encounter; L98.9 Disorder of the skin and subcutaneous tissue, unspecified; Z11.52 Encounter for screening for COVID-19; M54.32 Sciatica, left side; F43.10 Post-traumatic stress disorder, unspecified; K44.9 Diaphragmatic hernia without obstruction or gangrene; X58.XXXA Exposure to other specified factors, initial encounter; Z79.82 Long term (current) use of aspirin; Z95.1 Presence of aortocoronary bypass graft; Z85.118 Personal history of other malignant neoplasm of bronchus and lung; Z66 Do not resuscitate; Z79.899 Other long term (current) drug therapy; Z87.891 Personal history of nicotine dependence; Z88.5 Allergy status to narcotic agent
CPT/HCPCS: 36415; 71046; 80048; 80053; 83605; 84484; 85025; 85027; 85379; 85610; 85730; 86140; 87636; 93005; 94640; 94760; 96361; 96374; 96375; 96376; 99285

== ENCOUNTER 2023-05-19 07:02 | Inpatient (IN) | payer OTHER, MEDICARE ==
--- NOTE | 2023-05-19 07:22 | ED ---
General Adult HPI - General Chief complaint: Nausea/Vomiting/Diarrhea Stated complaint: Vomiting Blood, High Heart Rate Time Seen by Provider: 05/19/23 07:09 Source: patient, EMS, RN notes reviewed, old records reviewed Mode of arrival: EMS Limitations: no limitations - History of Present Illness Initial comments: 23-year-old male history of metastatic lung cancer presents for evaluation of generalized pain and hemoptysis. Patient has had an issue with hemoptysis in the recent past. He does have history of valve replacement as well as atrial fibrillation and is reported to be on Coumadin. He denies fever. He reports mild dyspnea. He is scheduled to start chemotherapy tomorrow according to the patient. - Related Data Home Medications Medication Instructions Recorded Confirmed Aspirin [Children's Aspirin] 81 mg PO DAILY@0800 11/11/22 05/11/23 Albuterol Inhaler [Ventolin Hfa 2 puff INHALATION RT-Q6H PRN 01/29/23 05/11/23 Inhaler] Baclofen 5 mg PO BID@0800,1300 05/11/23 05/11/23 Furosemide [Lasix] 40 mg PO DAILY@0800 05/11/23 05/11/23 Metoprolol Tartrate [Lopressor] 50 mg PO BID@0800,199905/11/23 05/11/23 Pantoprazole [Protonix] 40 mg PO DAILY@0800 05/11/23 05/11/23 Prochlorperazine [Compazine] 10 mg PO DAILY@0800 05/11/23 05/11/23 Warfarin [Coumadin] 7.5 mg PO DAILY@199905/11/23 05/11/23 fentaNYL 25MCG/HR PATCH [Duragesic 1 patch TOPICAL Q72H 05/11/23 05/11/23 25MCG/HR] Previous Rx's Medication Instructions Recorded Budesonide-Formot 160-4.5 Mcg 2 puff INHALATION RT-BID 30 Days 05/15/23 [Symbicort 160-4.5 Mcg Inhaler] #1 each Folic Acid 1 mg PO DAILY 30 Days #30 tab 05/15/23 Allergies Allergy/AdvReac Type Severity Reaction Status Date / Time acetaminophen Allergy Rash/Hives Verified 05/19/23 07:08 [From Jose Ramont-N 100] propoxyphene Allergy Rash/Hives Verified 05/19/23 07:08 [From Darvocet-N 100] amitriptyline [From Elavil] AdvReac NIGHTMARES Verified 05/19/23 07:08 hydralazine AdvReac MIGRAINES Verified 05/19/23 07:08 naproxen [From Naprosyn] AdvReac Nausea Verified 05/19/23 07:08 Review of Systems ROS Statement: Those systems with pertinent positive or pertinent negative responses have been documented in the HPI. ROS Other: All systems not noted in ROS Statement are negative. Past Medical History Past Medical History: Atrial Fibrillation, Coronary Artery Disease (CAD), Cancer, Heart Failure, Hyperlipidemia, Hypertension, Skin Disorder Additional Past Medical History / Comment(s): chronic lower back pain w/ Lt. sc iatica, TBI, hiatal hernia, cardiomyopathy, psoriasis, CHF - had a recent script for Jardiance and states, "I'm not taking it, I saw it on t.v, all the side effects." diagnosed with lung cancer 03/2023 History of Any Multi-Drug Resistant Organisms: None Reported Past Surgical History: Cardiac Valve Replacement, Coronary Bypass/CABG Additional Past Surgical History / Comment(s): Rt. knee arthroscopy, jaw/facial reconstruction, aortic valve replacement w/ on-x mechanical valve & aortic root repair 2019 Past Anesthesia/Blood Transfusion Reactions: No Reported Reaction Past Psychological History: Anxiety, PTSD Smoking Status: Former smoker Past Alcohol Use History: None Reported Past Drug Use History: None Reported - Past Family History Mother Family Medical History: No Reported History Father Additional Family Medical History / Comment(s): Passed when patient was a child possibly related to heart disease. General Exam Limitations: altered mental status General appearance: alert, in no apparent distress Head exam: Present: atraumatic, normocephalic Eye exam: Present: normal appearance, PERRL ENT exam: Present: mucous membranes dry Neck exam: Present: normal inspection Respiratory exam: Present: rhonchi, decreased breath sounds. Absent: respiratory distress Cardiovascular Exam: Present: tachycardia, irregular rhythm GI/Abdominal exam: Present: soft. Absent: distended, tenderness, guarding Neurological exam: Present: alert Skin exam: Present: warm, dry, intact. Absent: cyanosis, diaphoretic Course Vital Signs 05/19/23 05/19/23 07:05 07:34 Temperature 97.6 F Pulse Rate 124 H 116 H Respiratory 20 20 Rate Blood Pressure 114/85 103/76 O2 Sat by Pulse 119 H 100 Oximetry Medical Decision Making - Medical Decision Making Was pt. sent in by a medical professional or institution ([facility], [facility], urgent care, hospital, or residential...) When possible be specific @ -No Did you speak to anyone other than the patient for history (EMS, parent, family, police, friend...)? What history was obtained from this source @ -No Did you review nursing and triage notes (agree or disagree)? Why? @ -I reviewed and agree with nursing and triage notes Were old charts reviewed (outside hosp., previous admission, EMS record, old EKG, old radiological studies, urgent care reports/EKG's, residential records)? Report findings @ -No old charts were reviewed Differential Diagnosis (chest pain, altered mental status, abdominal pain women, abdominal pain men, vaginal bleeding, weakness, fever, dyspnea, syncope, headache, dizziness, GI bleed, back pain, seizure, CVA, palpatations, mental health, musculoskeletal)? @ -Differential Dyspnea: Coronary syndrome, arrhythmia, tamponade, asthma, COPD, pulmonary embolism, pneumonia, pneumothorax, pulmonary effusion, anaphylaxis, diabetic ketoacidosis, flailed chest, pulmonary contusion, diaphragmatic rupture, anemia, neuromuscular, this is not meant to be an all-inclusive list. EKG interpreted by me (3pts min.). @ -[Atrial fibrillation with RVR low voltage, rate of 126, QRS duration 101, QTC [address] segment elevation. X-rays interpreted by me (1pt min.). @ Chest x-ray showing right hilar mass with worsening consolidation CT interpreted by me (1pt min.). @ -None done U/S interpreted by me (1pt. min.). @ -None done What testing was considered but not performed or refused? (CT, X-rays, U/S, labs)? Why? @ -None What meds were considered but not given or refused? Why? @ -None Did you discuss the management of the patient with other professionals (professionals i.e. [facility], [facility], lab, RT, psych nurse, social work assistant, assistant counsel, teacher, regulatory compliance officer, egg caser)? Give summary @ -No Was smoking cessation discussed for >3mins.? @ -No Was critical care preformed (if so, how long)? @ -No Were there social determinants of health that impacted care today? How? (Homelessness, low income, unemployed, alcoholism, drug addiction, transportation, low edu. Level, literacy, decrease access to med. care, long term, rehab)? @ -No Was there de-escalation of care discussed even if they declined (Discuss DNR or withdrawal of care, Hospice)? DNR status @ -No What co-morbidities impacted this encounter? (DM, HTN, Smoking, COPD, CAD, Cancer, CVA, ARF, Chemo, Hep., AIDS, mental health diagnosis, sleep apnea, morbid obesity)? @ -Atrial fibrillation, known lung Was patient admitted / discharged? Hospital course, mention meds given and route, prescriptions, significant lab abnormalities, going to OR and other pertinent info. @ -63-year-old male presenting with cough, dyspnea, hemoptysis, H fibrillation with RVR. Patient has worsening chronic pain. Patient has stable chronic anemia, normal white blood cell count, therapeutic INR. He is hyponatremic at 128. His other electrolytes are unremarkable. Patient's chest x-ray shows concern for developing consolidation. Patient treated with IV antibiotics, IV fluid. He'll be admitted to internal medicine, case discussed with Dr. Calderon, pulmonology and oncology placed on consult. Undiagnosed new problem with uncertain prognosis? @ -No Drug Therapy requiring intensive monitoring for toxicity (Heparin, Nitro, Insulin, Cardizem)? @ -No Were any procedures done? @ -No Diagnosis/symptom? @ Lung cancer, pneumonia, hemoptysis, atrial fibrillation worsening pain Acute, or Chronic, or Acute on Chronic? @ -Acute on chronic Uncomplicated (without systemic symptoms) or Complicated (systemic symptoms)? @ -Complicated Side effects of treatment? @ -No Exacerbation, Progression, or Severe Exacerbation? @ -No Poses a threat to life or bodily function? How? (Chest pain, [place], [place], pneumonia, PE, COPD, DKA, ARF, appy, cholecystitis, CVA, Diverticulitis, Homicidal, Suicidal, threat to staff... and all critical care pts) @ Yes, pneumonia, sepsis - Lab Data Result diagrams: 05/19/23 07:41 05/19/23 07:41 Lab Results 05/19/23 05/19/2305/19/24 Range/Units 07:41 07:41 07:41 WBC 8.5 (3.8-10.6) k/uL RBC 3.19 L (4.30-5.90) m/uL Hgb 8.2 L (13.0-17.5) gm/dL Hct 25.0 L (39.0-53.0) % MCV 78.6 L (80.0-100.0) fL MCH 25.7 (25.0-35.0) pg MCHC 32.7 (31.0-37.0) g/dL RDW 15.7 H (11.5-15.5) % Plt Count 238 (150-450) k/uL MPV 8.2 Neutrophils % 73 % Lymphocytes % 10 % Monocytes % 8 % Eosinophils % 6 % Basophils % 1 % Neutrophils # 6.2 (1.3-7.7) k/uL Lymphocytes # 0.9 L (1.0-4.8) k/uL Monocytes # 0.6 (0-1.0) k/uL Eosinophils # 0.5 (0-0.7) k/uL Basophils # 0.0 (0-0.2) k/uL Hypochromasia Slight Poikilocytosis Slight PT 27.1 H (10.0-12.5) sec INR 2.7 H (<1.2) APTT 32.1 H (22.0-30.0) sec Sodium 128 L (137-145) mmol/L Potassium 4.1 (3.5-5.1) mmol/L Chloride 96 L (98-107) mmol/L Carbon Dioxide 24 (22-30) mmol/L Anion Gap 8 mmol/L BUN 15 (9-20) mg/dL Creatinine 1.01 (0.66-1.25) mg/dL Est GFR (CKD-EPI)AfAm >90 (>60 ml/min/1.73 sqM) Est GFR (CKD-EPI)NonAf 80 (>60 ml/min/1.73 sqM) Glucose 107 H (74-99) mg/dL Plasma Lactic Acid Gordon (0.7-2.0) mmol/L Calcium 8.6 (8.4-10.2) mg/dL Magnesium 1.6 (1.6-2.3) mg/dL Total Bilirubin 1.8 H (0.2-1.3) mg/dL AST 27 (17-59) U/L ALT 21 (4-49) U/L Alkaline Phosphatase 75 (38-126) U/L Total Protein 6.1 L (6.3-8.2) g/dL Albumin 3.3 L (3.5-5.0) g/dL 05/19/23 Range/Units 07:41 WBC (3.8-10.6) k/uL RBC (4.30-5.90) m/uL Hgb (13.0-17.5) gm/dL Hct (39.0-53.0) % MCV (80.0-100.0) fL MCH (25.0-35.0) pg MCHC (31.0-37.0) g/dL RDW (11.5-15.5) % Plt Count (150-450) k/uL MPV Neutrophils % % Lymphocytes % % Monocytes % % Eosinophils % % Basophils % % Neutrophils # (1.3-7.7) k/uL Lymphocytes # (1.0-4.8) k/uL Monocytes # (0-1.0) k/uL Eosinophils # (0-0.7) k/uL Basophils # (0-0.2) k/uL Hypochromasia Poikilocytosis PT (10.0-12.5) sec INR (<1.2) APTT (22.0-30.0) sec Sodium (137-145) mmol/L Potassium (3.5-5.1) mmol/L Chloride (98-107) mmol/L Carbon Dioxide (22-30) mmol/L Anion Gap mmol/L BUN (9-20) mg/dL Creatinine (0.66-1.25) mg/dL Est GFR (CKD-EPI)AfAm (>60 ml/min/1.73 sqM) Est GFR (CKD-EPI)NonAf (>60 ml/min/1.73 sqM) Glucose (74-99) mg/dL Plasma Lactic Acid Gordon 1.4 (0.7-2.0) mmol/L Calcium (8.4-10.2) mg/dL Magnesium (1.6-2.3) mg/dL Total Bilirubin (0.2-1.3) mg/dL AST (17-59) U/L ALT (4-49) U/L Alkaline Phosphatase (38-126) U/L Total Protein (6.3-8.2) g/dL Albumin (3.5-5.0) g/dL Disposition Clinical Impression: Afib, Hemoptysis, Cancer associated pain, Cancer, metastatic, Dehydration, PNA (pneumonia) Disposition: ADMITTED IP TO THIS HOSP Condition: Stable Is patient prescribed a controlled substance at d/c from ED?: No Referrals: Kyle Benton NPC [Family Provider] - 1-2 days Time of Disposition: 08:22
[2023-05-19] MEDS: SODIUM CHLORIDE 0.9% 500 ML 500 ML IV ONE (07:38)
[2023-05-19] MEDS: HYDROmorphone 0.5 MG/0.5 ML SYRINGE IVP STA (07:39)
[2023-05-19 07:56] LABS: Basophils % (A) 1 %; Eosinophils # (A) 0.5 k/uL (0-0.7); Eosinophils % (A) 6 %; HGB 8.2 gm/dL (13.0-17.5); Hypochromasia Slight; Lymphocytes # (A) 0.9 k/uL (1.0-4.8); Lymphocytes % (A) 10 %; MCH 25.7 pg (25.0-35.0); MCHC 32.7 g/dL (31.0-37.0); MCV 78.6 fL (80.0-100.0); Mean Platelet Volume 8.2; Monocytes # (A) 0.6 k/uL (0-1.0); Monocytes % (A) 8 %; Neutrophils # (A) 6.2 k/uL (1.3-7.7); Neutrophils % (A) 73 %; Platelet Count 238 k/uL (150-450); Poikilocytosis Slight; RBC 3.19 m/uL (4.30-5.90); RDW 15.7 % (11.5-15.5); WBC 8.5 k/uL (3.8-10.6)
[2023-05-19 08:04] LABS: INR 2.7 (<1.2); Partial Thromboplastin Time 32.1 sec (22.0-30.0); Prothrombin Time 27.1 sec (10.0-12.5)
--- NOTE | 2023-05-19 08:04 | XR ---
EXAMINATION TYPE: XR chest 2V DATE OF EXAM: 05/19/2023 COMPARISON: 05/11/2023 HISTORY: Difficulty breathing. Known right hilar mass and adenopathy from prior CT of the chest dated 04/26/2023 TECHNIQUE: Frontal and lateral views of the chest are obtained. FINDINGS: There is been no change in the right hilar mass. There is been an interval increase in the partially consolidative opacity in the right upper lobe likely reflecting postobstructive pneumonitis or acute pneumonia.. The left lung remains clear. The pulmonary vasculature is not congested and the heart siz e is within normal limits. The osseous structures are grossly intact. IMPRESSION: 1. No change in the known right hilar mass/ adenopathy 2. Interval development of an partially consolidative opacity in the right upper lobe as described ab ove.
[2023-05-19 08:06] LABS: ALT 21 U/L (4-49); AST 27 U/L (17-59); African American GFR (CKD) >90 (>60 ml/min/1.73 sqM); Albumin 3.3 g/dL (3.5-5.0); Alkaline Phosphatase 75 U/L (38-126); Anion Gap 8 mmol/L; Blood Urea Nitrogen 15 mg/dL (9-20); Calcium 8.6 mg/dL (8.4-10.2); Carbon Dioxide 24 mmol/L (22-30); Chloride 96 mmol/L (98-107); Glucose 107 mg/dL (74-99); Magnesium 1.6 mg/dL (1.6-2.3); Non-African American GFR(CKD) 80 (>60 ml/min/1.73 sqM); Potassium 4.1 mmol/L (3.5-5.1); Sodium 128 mmol/L (137-145); Total Bilirubin 1.8 mg/dL (0.2-1.3); Total Protein 6.1 g/dL (6.3-8.2)
[2023-05-19] MEDS ORDERED: NALOXONE 0.4 MG/ML 1 ML VIAL IV PRN (08:17)
[2023-05-19] MEDS: SODIUM CHLORIDE 0.9% 1,000 ML IV SCH (09:04)
[2023-05-19] MEDS ORDERED: PNEUMONIA PROTOCOL UTILIZED 1 EACH MISC PO PRN (09:06)
[2023-05-19] MEDS: HYDROmorphone 0.5 MG/0.5 ML SYRINGE IVP PRN (11:18)
[2023-05-19] MEDS: AZITHROMYCIN 500 MG in SODIUM CHLORIDE 0.9% 250 ML IVPB STA (11:21)
[2023-05-19] MEDS: IPRATROPIUM-ALBUTEROL 3 ML NEB INHALATION SCH (12:36)
--- NOTE | 2023-05-19 13:00 | P.HPIM ---
History of Present Illness H&P Date: 05/19/23 History of present illness; 63-year-old gentleman with past medical history significant for newly diagnosed metastatic lung adenocarcinoma with intra- abdominal and brain metastases, history of atrial fibrillation, mechanical aortic valve, on anticoagulation with Coumadin, heart failure with reduced ejection fraction 35-40%, thoracic aortic aneurysm status post repair, hypertension, hyperlipidemia, mild nonobstructive coronary artery disease, episode of A. fib RVR presents with worsening shortness of breath. Patient was only discharged a week ago after presenting with similar complaints. Patient states that ever since his discharge he has been having worsening shortness of breath. Shortness of breath present on rest as well as exertion. Denies any fever or chills. Denies any chest pain. Patient also having hemoptysis. There was no complain of orthopnea or PND. Denies any palpitations. Patient also complaining of generalized body pains. Denies any recent fall or trauma. Because of these symptoms, patient came to the ER Initial lab work done in the ER showed WBC 8.5, hemoglobin 8.2, platelet count 238, sodium 128, potassium 4.1, BUN 15, creatinine 1.01, glucose 107, bilirubin 1.8, EKG done in the ER showed heart rate of 126, irregularly irregular , no ST segment elevation or depression seen, no T-wave inversions seen. Chest x-ray done in the ER interval development of a partially consolidated opacity in the right upper lobe Patient admitted to internal medicine service REVIEW OF SYSTEMS: CONSTITUTIONAL: No fever, no malaise, no fatigue. HEENT: No recent visual problems or hearing problems. Denied any sore throat. CARDIOVASCULAR: As mentioned above PULMONARY: As mentioned above GASTROINTESTINAL: No diarrhea, no nausea, no vomiting, no abdominal pain. NEUROLOGICAL: No headaches, no weakness, no numbness. HEMATOLOGICAL: Denies any bleeding or petechiae. GENITOURINARY: Denies any burning micturition, frequency, or urgency. MUSCULOSKELETAL/RHEUMATOLOGICAL: Denies any joint pain, swelling, or any muscle pain. ENDOCRINE: Denies any polyuria or polydipsia. The rest of the 14-point review of systems is negative. PHYSICAL EXAMINATION: GENERAL: The patient is alert and oriented x3, chronically ill-looking HEENT: Pupils are round and equally reacting to light. EOMI. No scleral icterus. No conjunctival pallor. Normocephalic, atraumatic. No pharyngeal erythema. No thyromegaly. CARDIOVASCULAR: S1 and S2 present. Irregularly irregular PULMONARY: Coarse breath sounds bilaterally, expiratory rhonchi audible ABDOMEN: Soft, nontender, nondistended, normoactive bowel sounds. No palpable organomegaly. MUSCULOSKELETAL: No joint swelling or deformity. EXTREMITIES: No cyanosis, clubbing, or pedal edema. NEUROLOGICAL: Gross neurological examination did not reveal any focal deficits. SKIN: No rashes. Assessment and plan A. fib with RVR Hyponatremia Metastatic adenocarcinoma of lung with intra-abdominal and brain metastases Acute exacerbation of obstructive lung disease chronic hypoxic respiratory failure Chronic atrial fibrillation Mechanical aortic valve Chronic congestive heart failure with reduced ejection fraction of 35% Chronic cancer related pain Monitor vital signs Monitor CBC Monitor CMP Continue telemetry monitoring Follow-up on blood cultures Continue breathing treatments Ordered pro-calcitonin Continue IV Rocephin and azithromycin Resume home meds Continue pharmacy dose Coumadin Consult pulmonary medicine Consulted oncology Consult cardiology Labs and medication were reviewed.. Continue same treatment. Continue with symptomatic treatment. Resume home medication. Monitor labs and vitals. DVT and GI prophylaxis. Further recommendations as per clinical course of the patient Dictation was produced using [employer] dictation software. please excuse any grammatical, word or spelling errors. Past Medical History Past Medical History: Atrial Fibrillation, Coronary Artery Disease (CAD), Cancer, Heart Failure, Hyperlipidemia, Hypertension, Skin Disorder Additional Past Medical History / Comment(s): chronic lower back pain w/ Lt. sciatica, TBI, hiatal hernia, cardiomyopathy, psoriasis, CHF - had a recent script for Jardiance and states, "I'm not taking it, I saw it on t.v, all the side effects." diagnosed with lung cancer 03/2023 History of Any Multi-Drug Resistant Organisms: None Reported Past Surgical History: Cardiac Valve Replacement, Coronary Bypass/CABG Additional Past Surgical History / Comment(s): Rt. knee arthroscopy, jaw/facial reconstruction, aortic valve replacement w/ on-x mechanical valve & aortic root repair 2019 Past Anesthesia/Blood Transfusion Reactions: No Reported Reaction Past Psychological History: Anxiety, PTSD Smoking Status: Former smoker Past Alcohol Use History: None Reported Past Drug Use History: None Reported - Past Family History Mother Family Medical History: No Reported History Father Additional Family Medical History / Comment(s): Passed when patient was a child possibly related to heart disease. Medications and Allergies Home Medications Medication Instructions Recorded Confirmed Type Aspirin [Children's Aspirin] 81 mg PO DAILY@0800 11/11/22 05/19/23 History Albuterol Inhaler [Ventolin Hfa 2 puff INHALATION RT-Q6H PRN 01/29/23 05/19/23 History Inhaler] Baclofen 5 mg PO BID@0800,1300 05/11/23 05/19/23 History Furosemide [Lasix] 40 mg PO DAILY@0800 05/11/23 05/19/23 History Metoprolol Tartrate [Lopressor] 50 mg PO BID@0800,199905/11/23 05/19/23 History Pantoprazole [Protonix] 40 mg PO DAILY@0800 05/11/23 05/19/23 History Prochlorperazine [Compazine] 10 mg PO DAILY@0800 05/11/23 05/19/23 History Warfarin [Coumadin] 7.5 mg PO DAILY@199905/11/23 05/19/23 History fentaNYL 25MCG/HR PATCH [Duragesic 1 patch TOPICAL Q72H 05/11/23 05/19/23 History 25MCG/HR] Budesonide-Formot 160-4.5 Mcg 2 puff INHALATION RT-BID 30 Days 05/15/23 05/19/23 Rx [Symbicort 160-4.5 Mcg Inhaler] #1 each Folic Acid 1 mg PO DAILY 30 Days #30 tab 05/15/23 05/19/23 Rx HYDROcodone/APAP 10-325MG [[place] 1 tab PO Q4HR PRN 05/19/23 05/19/23 History 10-325] oxyCODONE HCL [oxyCODONE HCL (IR)] 5 mg PO Q6H PRN 05/19/23 05/19/23 History Allergies Allergy/AdvReac Type Severity Reaction Status Date / Time acetaminophen Allergy Rash/Hives Verified 05/19/23 11:20 [From Darvocet-N 100] propoxyphene Allergy Rash/Hives Verified 05/19/23 11:20 [From Darvocet-N 100] amitriptyline [From Elavil] AdvReac NIGHTMARES Verified 05/19/23 11:20 hydralazine AdvReac MIGRAINES Verified 05/19/23 11:20 naproxen [From Naprosyn] AdvReac Nausea Verified 05/19/23 11:20 Physical Exam Vitals: Vital Signs Temp Pulse Resp BP Pulse Ox 05/19/23 07:34 116 H 20 103/76 100 05/19/23 07:05 97.6 F 124 H 20 114/85 119 H Intake and Output 05/18/23 05/19/23 05/19/23 22:59 06:59 14:59 Other: Weight 54.431 kg Results CBC & Chem 7: 05/19/23 07:41 05/19/23 07:41 Labs: Abnormal Lab Results - Last 24 Hours (Table) 05/19/23 05/19/23 05/19/23 Range/Units 07:41 07:41 07:41 RBC 3.19 L (4.30-5.90) m/uL Hgb 8.2 L (13.0-17.5) gm/dL Hct 25.0 L (39.0-53.0) % MCV 78.6 L (80.0-100.0) fL RDW 15.7 H (11.5-15.5) % Lymphocytes # 0.9 L (1.0-4.8) k/uL PT 27.1 H (10.0-12.5) sec INR 2.7 H (<1.2) APTT 32.1 H (22.0-30.0) sec Sodium 128 L (137-145) mmol/L Chloride 96 L (98-107) mmol/L Glucose 107 H (74-99) mg/dL Total Bilirubin 1.8 H (0.2-1.3) mg/dL Total Protein 6.1 L (6.3-8.2) g/dL Albumin 3.3 L (3.5-5.0) g/dL
[2023-05-19] MEDS ORDERED: RX INFO: IV CONTRAST WAS GIVEN 1 EACH MISC MISCELLANE PRN (13:58)
--- NOTE | 2023-05-19 14:50 | P.CNPUL ---
History of Present Illness Consult date: 05/19/23 Reason for consult: dyspnea History of present illness: 63-year-old male patient with metastatic pulmonary adenocarcinoma and the patient has a bulky tumor in his chest with extensive adenopathy involving the right hilum and the right paratracheal and subcarinal area the largest portions measuring 8 x 86.3 cm in size in the hilar area and 5.6 x 3.5 cm inside the subcarinal and infrahilar area. There is also lymphadenopathy involving the lef t hilum other smaller lymph nodes within the mediastinum and the patient has small pleural effusion right more than left along with compressive atelectatic changes and pleural-based nodules in the right and extensive groundglass changes in the left upper lobe with numerous nodular densities up to 16 x 13 mm in size. Smaller nodules also seen in the left lung in addition. In summary, the patient disease is metastatic as the patient also has extensive heterogeneous liver concerning for diffuse metastases and a stain is also enlarged and the patient has multiple soft tissue masses/lymphadenopathy in the upper abdomen. During his last admission the patient was also found to have a left occipital Enhancing lesion suspicious for SENIOR ACCOUNTANT CPA metastases. The patient was admitted to the hospital on 05/12/2023 for shortness of breath and hemoptysis. His hemoptysis was attributed to his metastatic lung cancer and the patient was taken anticoagulation with warfarin and his INR was supratherapeutic. At that time, his INR was reversed, however, the patient in the going back on warfarin as the patient is a mechanical aortic valve and there is no reasonable alternatives to that and were targeting a titer INR control between 2 and 2.5. He was supposed to follow-up with oncology on outpatient basis. In addition oncology saw him during his hospital stay and thought that the brain lesion was small and there was no need for radiation this point in time. Following his discharge, the patient encounter ongoing hemoptysis which never stopped since his discharge. He came into the hospital for further advice. Total amount of blood was probably in the form of 10 mL overnight mixed with mucus. No blood clots. No worsening shortness of breath. His chronically dyspneic and is also having hypoxic respiratory failure maintained on oxygen. He has atrial fibrillation, coronary artery disease, and previous aortic valve replacement with a mechanical valve. I did see the patient during his last hospital stay and the patient was thought to be clinically stable for discharge to be followed up by oncology. Final decision on treatment for his lung cancer has not been made as the patient is awaiting PDL 1 and NGS analysis prior to quitting for any further treatment. He was supposed to be seen by medical oncology early next week. For now, the patient's echoes at 8.5, hemoglobin is 8.2 which is stable since his discharge. INR is at 2.7 with a PT of 27. BUN is a 50 with a creatinine of 1.01 and sodium level is 128. His oxygenation is stable at 3 L with a pulse ox of 99%. Computed tomography scan of the chest was again ordered Review of Systems Constitutional: Reports chronic pain, Reports poor appetite, Reports weakness, Reports weight loss Eyes: denies blurred vision, denies pain Ears: deny: decreased hearing, ear discharge, earache, tinnitus Ears, nose, mouth and throat: Denies headache, Denies sore throat Cardiovascular: Reports irregular heart beat, Reports shortness of breath Respiratory: Reports cough, Reports dyspnea, Reports hemoptysis Gastrointestinal: Reports melena Genitourinary: Reports as per HPI Musculoskeletal: Reports as per HPI, Reports low back pain, Reports shooting leg pain Integumentary: Reports as per HPI Neurological: Reports weakness Psychiatric: Reports anxiety Endocrine: Reports fatigue, Reports weight change Hematologic/Lymphatic: Reports as per HPI, Reports lymphadenopathy Past Medical History Past Medical History: Atrial Fibrillation, Coronary Artery Disease (CAD), Cancer, Heart Failure, Hyperlipidemia, Hypertension, Skin Disorder Additional Past Medical History / Comment(s): chronic lower back pain w/ Lt. sciatica, TBI, hiatal hernia, cardiomyopathy, psoriasis, CHF - had a recent script for Jardiance and states, "I'm not taking it, I saw it on t.v, all the side effects." diagnosed with lung cancer 03/2023 History of Any Multi-Drug Resistant Organisms: None Reported Past Surgical History: Cardiac Valve Replacement, Coronary Bypass/CABG Additional Past Surgical History / Comment(s): Rt. knee arthroscopy, jaw/facial reconstruction, aortic valve replacement w/ on-x mechanical valve & aortic root repair 2019 Past Anesthesia/Blood Transfusion Reactions: No Reported Reaction Past Psychological History: Anxiety, PTSD Smoking Status: Former smoker Past Alcohol Use History: None Reported Past Drug Use History: None Reported - Past Family History Mother Family Medical History: No Reported History Father Additional Family Medical History / Comment(s): Passed when patient was a child possibly related to heart disease. Medications and Allergies Home Medications Medication Instructions Recorded Confirmed Type Aspirin [Children's Aspirin] 81 mg PO DAILY@0800 11/11/22 05/19/23 History Albuterol Inhaler [Ventolin Hfa 2 puff INHALATION RT-Q6H PRN 01/29/23 05/19/23 History Inhaler] Baclofen 5 mg PO BID@0800,1300 05/11/23 05/19/23 History Furosemide [Lasix] 40 mg PO DAILY@0805/11/23 05/19/23 History Metoprolol Tartrate [Lopressor] 50 mg PO BID@0800,199905/11/23 05/19/23 History Pantoprazole [Protonix] 40 mg PO DAILY@0805/11/23 05/19/23 History Prochlorperazine [Compazine] 10 mg PO DAILY@79905/11/23 05/19/23 History Warfarin [Coumadin] 7.5 mg PO DAILY@199905/11/23 05/19/23 History fentaNYL 25MCG/HR PATCH [Duragesic 1 patch TOPICAL Q72H 05/11/23 05/19/23 History 25MCG/HR] Budesonide-Formot 160-4.5 Mcg 2 puff INHALATION RT-BID 30 Days 05/15/23 05/19/23 Rx [Symbicort 160-4.5 Mcg Inhaler] #1 each Folic Acid 1 mg PO DAILY 30 Days #30 tab 05/15/23 05/19/23 Rx HYDROcodone/APAP 10-325MG [[place] 1 tab PO Q4HR PRN 05/19/23 05/19/23 History 10-325] oxyCODONE HCL [oxyCODONE HCL (IR)] 5 mg PO Q6H PRN 05/19/23 05/19/23 History Allergies Allergy/AdvReac Type Severity Reaction Status Date / Time acetaminophen Allergy Rash/Hives Verified 05/19/23 11:20 [From Darvocet-N 100] propoxyphene Allergy Rash/Hives Verified 05/19/23 11:20 [From Darvocet-N 100] amitriptyline [From Elavil] AdvReac NIGHTMARES Verified 05/19/23 11:20 hydralazine AdvReac MIGRAINES Verified 05/19/23 11:20 naproxen [From Naprosyn] AdvReac Nausea Verified 05/19/23 11:20 Physical Exam Vitals: Vital Signs Temp Pulse Resp BP Pulse Ox 05/19/23 09:05 101 H 20 121/95 100 05/19/23 07:34 116 H 20 103/76 100 05/19/23 07:05 97.6 F 124 H 20 114/85 119 H Intake and Output 05/18/23 05/19/23 05/19/23 22:59 06:59 14:59 Other: Weight 54.431 kg No acute distress, oriented 3. The patient is currently on 3 L of oxygen by nasal cannula. HEENT examination is grossly unremarkable. Mucous membranes are moist. No oral lesions. Neck supple. Full range of motion. No adenopathy thyromegaly or neck vein distention. Cardiovascular examination reveals irregular S1-S2 consistent with atrial fibrillation and was slightly tachycardic at time of admission, improved heart rate in the time of my evaluation.. Aortic valve click NB also appreciated over the left lateral precordium. Lungs reveal scattered bilateral rhonchi. No wheezes. No crackles. Breath sounds are equal. 3 L saturation is 99%. Abdomen soft bowel sounds are heard. No masses or tenderness. Extremities are intact. No cyanosis clubbing or edema. Skin is without rash or lesion. Neurologic examination is brief but nonfocal. Results - Laboratory Findings CBC and BMP: 05/19/23 07:41 05/19/23 07:41 PT/INR, D-dimer PT 27.1 sec (10.0-12.5) H 05/19/23 07:41 INR 2.7 (<1.2) H 05/19/23 07:41 Abnormal lab findings: Abnormal Labs 05/19/23 05/19/23 05/19/23 07:41 07:41 07:41 RBC 3.19 L Hgb 8.2 L Hct 25.0 L MCV 78.6 L RDW 15.7 H Lymphocytes # 0.9 L PT 27.1 H INR 2.7 H APTT 32.1 H Sodium 128 L Chloride 96 L Glucose 107 H Total Bilirubin 1.8 H Total Protein 6.1 L Albumin 3.3 L - Diagnostic Findings Chest x-ray: image reviewed Assessment and Plan Plan: Episodic hemoptysis due to his underlying lung cancer probably invading the right upper lobe bronchus which probably is the source of bleed in addition to intake of anticoagulation with warfarin. INR is at 2.7. No signs of any massive hemoptysis and the patient is able to cough out some bloody mucus. No blood clots. No interval worsening in the overall respiratory status as his last discharge. Metastatic adenocarcinoma of the lung and diagnosis was made by biopsy of the exiting mass and intestinal mass. The patient has S[employer]IOR ACC[employer]ANT CPA metastases. The patient has extensive mediastinal and the right hilar soft tissue masses and the lymphadenopathy consistent with metastatic disease. Patient also has enlarged right axillary lymph node and small bilateral pleural effusions and multiple bi lateral pulmonary nodules and areas of groundglass opacity suggestive of metastases. Noted the right hilar mass surrounding the narrowed the bedside the pulmonary artery pressure was in the right upper lobe. Patient also has extensive upper abdominal metastases or in the liver and spleen. There is also evidence of brain metastases. Patient has not started any treatment under the care of medical oncology. Acute hemoptysis secondary to lung cancer and coagulopathy who warfarin use, source being most likely the right lung base and the CAT scan findings, currently inactive and stable Brain metastases with a left occipital lobe peripherally enhancing lesion suspicious for metastases and hemosiderin the position suggestive of prior hemorrhage. No evidence of any acute or subacute infarction based on MRI of the brain that was done on 04/26/2023. The patient was seen by radiation oncology. No need for radiation therapy at this point in time. Chronic atrial fibrillation, maintained on warfarin Mechanical aortic valve placed in 2019, maintain on warfarin, history of bicuspid aortic valve Coronary artery disease bypass surgery, mild nonobstructive CAD current cardiac catheterization from [facility] 2019 CHF with an underlying impaired systolic heart failure with an ejection fraction of 35-40% Hypertension Hyperlipidemia Psoriasis Previous history of traumatic brain injury. Anemia chronic disease, hemoglobin is stable since his last discharge Plan Repeat CAT scan of the chest Findings of the chest exam was likely secondary to his underlying lung cancer. Obstructive pneumonia of the right upper lobe cannot be completely ruled out, currently on Rocephin. Hemoglobin is stable despite hemoptysis Stop warfarin for today We'll take further advice from medical oncology. The patient is to be started as soon as possible which may potentially help him with his lung cancer and malignancy Another alternative may be a bronchial artery embolization after hemoptysis becomes an ongoing issue while awaiting chemotherapy and treatment. If this is being contemplated, the patient may need to go to another facility regarding this procedure. Unfortunately, there is no blood or need an alternative for warfarin in the setting of a mechanical aortic valve. His INR is therapeutic at this point in time. Palliative radiation to the chest may not control hemoptysis and in fact may potentially exacerbate. We'll discuss this with medical oncology and will continue to follow.
--- NOTE | 2023-05-19 16:47 | P.CONS ---
History of Present Illness - Reason for Consult Consult date: 05/19/23 Metastatic NSCLC - Chief Complaint Hemoptysis - History of Present Illness Mr. Raza is a 63-year-old gentleman with a past medical history of metastatic adenocarcinoma of the lung with metastases to the duodenum, soft tissue nodules of the abdomen, adrenal glands, and possibly brain who presents with hemoptysis. He presented with hemoptysis on 05/11/2023 and was found to have supratherapeutic INR at that time with resolution of his hemoptysis. Since discharge on 05/15/2023, his at bedside notes Jaime having persistent hemoptysis. She does note episodes of philipp hemoptysis, but denies any clots. Over the past 2 weeks, he has had progressive confusion at home. His notes Jaime having visual hallucinations along with episodes of unusual behavior of him losing his temper. He has had progressive fatigue and decreased appetite as well over the past few weeks. Given the hemoptysis and confusion, he presented to the ED for additional management recommendations. On presentation, he was afebrile, but noted to be tachycardic with heart rate between the 100s to 120s. He was saturating 100% on 3 L nasal cannula. CMP noted sodium of 128, creatinine 1.01, WBC 8.5 (ANC 6.2), hemoglobin 8.2, platelets 238. Chest x-ray revealed early consolidative opacity in the right upper lobe compared to x-ray from 05/11/2023 with no change in the known right hilar mass/adenopathy. He was given ceftriaxone/azithromycin in addition to 500 cc bolus of normal saline and Dilaudid 0.5 mg IV x 1. He was admitted for additional management recommendations. Review of Systems 14 point review of systems was conducted with pertinent positives and negatives as noted per HPI Past Medical History Past Medical History: Atrial Fibrillation, Coronary Artery Disease (CAD), Cancer, Heart Failure, Hyperlipidemia, Hypertension, Skin Disorder Additional Past Medical History / Comment(s): chronic lower back pain w/ Lt. sciatica, TBI, hiatal hernia, cardiomyopathy, psoriasis, CHF - had a recent script for Jardiance and states, "I'm not taking it, I saw it on t.v, all the side effects." diagnosed with lung cancer 03/2023 History of Any Multi-Drug Resistant Organisms: None Reported Past Surgical History: Cardiac Valve Replacement, Coronary Bypass/CABG Additional Past Surgical History / Comment(s): Rt. knee arthroscopy, jaw/facial reconstruction, aortic valve replacement w/ on-x mechanical valve & aortic root repair 2019 Past Anesthesia/Blood Transfusion Reactions: No Reported Reaction Past Psychological History: Anxiety, PTSD Additional Psychological History / Comment(s): describes worsening anxiety recently w/ health issues and bills, PTSD from - also recently stopped xanax, stopped drinking January 2023 Smoking Status: Former smoker Past Alcohol Use History: None Reported Additional Past Alcohol Use History / Comment(s): Per patient and his , has not had a drink since Feb 2023 Past Drug Use History: None Reported Additional Drug Use History / Comment(s): Denies current Mariuana use. Quit O Feb 2023. - Past Family History Mother Family Medical History: No Reported History Father Additional Family Medical History / Comment(s): Passed when patient was a child possibly related to heart disease. Medications and Allergies Home Medications Medication Instructions Recorded Confirmed Type Aspirin [Children's Aspirin] 81 mg PO DAILY@0800 11/11/22 05/19/23 History Albuterol Inhaler [Ventolin Hfa 2 puff INHALATION RT-Q6H PRN 01/29/23 05/19/23 History Inhaler] Baclofen 5 mg PO BID@0800,1300 05/11/23 05/19/23 History Furosemide [Lasix] 40 mg PO DAILY@0805/11/23 05/19/23 History Metoprolol Tartrate [Lopressor] 50 mg PO BID@0800,199905/11/23 05/19/23 History Pantoprazole [Protonix] 40 mg PO DAILY@0800 05/11/23 05/19/23 History Prochlorperazine [Compazine] 10 mg PO DAILY@79905/11/23 05/19/23 History Warfarin [Coumadin] 7.5 mg PO DAILY@199905/11/23 05/19/23 History fentaNYL 25MCG/HR PATCH [Duragesic 1 patch TOPICAL Q72H 05/11/23 05/19/23 History 25MCG/HR] Budesonide-Formot 160-4.5 Mcg 2 puff INHALATION RT-BID 30 Days 05/15/23 05/19/23 Rx [Symbicort 160-4.5 Mcg Inhaler] #1 each Folic Acid 1 mg PO DAILY 30 Days #30 tab 05/15/23 05/19/23 Rx HYDROcodone/APAP 10-325MG [[place] 1 tab PO Q4HR PRN 05/19/23 05/19/23 History 10-325] oxyCODONE HCL [oxyCODONE HCL (IR)] 5 mg PO Q6H PRN 05/19/23 05/19/23 History Allergies Allergy/AdvReac Type Severity Reaction Status Date / Time acetaminophen Allergy Rash/Hives Verified 05/19/23 11:20 [From Darvocet-N 100] propoxyphene Allergy Rash/Hives Verified 05/19/23 11:20 [From Darvocet-N 100] amitriptyline [From Elavil] AdvReac NIGHTMARES Verified 05/19/23 11:20 hydralazine AdvReac MIGRAINES Verified 05/19/23 11:20 naproxen [From Naprosyn] AdvReac Nausea Verified 05/19/23 11:20 Physical Exam Vitals: Vital Signs Temp Pulse Pulse Resp BP BP Pulse Ox 05/19/23 15:14 97.5 F L 111 H 18 129/83 97 05/19/23 14:46 98.1 F 101 H 22 119/79 100 05/19/23 11:22 118 H 20 140/97 100 05/19/23 09:05 101 H 20 121/95 100 05/19/23 07:34 116 H 20 103/76 100 05/19/23 07:05 97.6 F 124 H 20 114/85 119 H Intake and Output 05/19/23 05/19/23 05/19/23 06:59 14:59 22:59 Other: Weight 54.431 kg 54.431 kg - Constitutional No acute distress, but noted to have intermittent confusion and trying to move about the room - EENT Eyes: EOMI - Respiratory Respiratory: bilateral: CTA - Cardiovascular Rhythm: regularly irregular - Gastrointestinal General gastrointestinal: no distended, soft - Integumentary Integumentary: no jaundiced, no rash - Neurologic Difficulty following instructions on exam making full neurologic evaluation difficult Results CBC & Chem 7: 05/19/23 07:41 05/19/23 07:41 Labs: Abnormal Lab Results - Last 24 Hours (Table) 05/19/23 05/19/23 05/19/23 Range/Units 07:41 07:41 07:41 RBC 3.19 L (4.30-5.90) m/uL Hgb 8.2 L (13.0-17.5) gm/dL Hct 25.0 L (39.0-53.0) % MCV 78.6 L (80.0-100.0) fL RDW 15.7 H (11.5-15.5) % Lymphocytes # 0.9 L (1.0-4.8) k/uL PT 27.1 H (10.0-12.5) sec INR 2.7 H (<1.2) APTT 32.1 H (22.0-30.0) sec Sodium 128 L (137-145) mmol/L Chloride 96 L (98-107) mmol/L Glucose 107 H (74-99) mg/dL Total Bilirubin 1.8 H (0.2-1.3) mg/dL Total Protein 6.1 L (6.3-8.2) g/dL Albumin 3.3 L (3.5-5.0) g/dL Chest x-ray: report reviewed, image reviewed Assessment and Plan (1) Metastatic non-small cell lung cancer Current Visit: Yes Status: Acute Code(s): C34.90 - MALIGNANT NEOPLASM OF UNSP PART OF UNSP BRONCHUS OR LUNG SNOMED Code(s): 253161909 (2) Hemoptysis Current Visit: Yes Status: Acute Priority: High Code(s): R04.2 - HEMOPTYSIS SNOMED Code(s): 49264205 (3) PNA (pneumonia) Current Visit: Yes Status: Acute Code(s): J18.9 - PNEUMONIA, UNSPECIFIED ORGANISM SNOMED Code(s): 575396135 Plan: #Metastatic non-small cell lung cancer -Noted to have adenocarcinoma with metastases to the adrenal glands, soft tissue of the abdomen, duodenum, and possibly brain -NGS from the biopsy revealed MET amplification with gene copy number of 3.16, which is not considered high (10 or greater) -He presents with persistent hemoptysis since discharge on 05/15/2023 previously in the setting of a supratherapeutic INR, which is now therapeutic -In addition, he is having progressive confusion with unusual behaviors from baseline and visual hallucinations per at bedside -Given right hilar mass with surrounding right bronchi, he could have bronchial invasion -Given his visual hallucinations and unusual behaviors, previous indeterminate finding on brain MRI likely represents brain metastasis -Agree with holding Coumadin at this time given persistent hemoptysis -Repeat CT chest and brain MRI ordered -If he does have evidence of bronchial invasion radiographically, he would benefit from it of radiation therapy to help relieve the hemoptysis. Bronchial artery embolization could be considered if there is no definitive evidence of this, but would have to be transferred to a tertiary center -I believe he does have progressive malignancy and has not yet been initiated on systemic treatment due to multiple hospitalizations within the past month -Systemic chemotherapy with carboplatin/pemetrexed or carboplatin/paclitaxel will likely be administered inpatient for disease control -Liquid NGS needs to be obtained outpatient to more accurately assess whether MET amplification can be targeted with met inhibitor such as capmatinib # Pneumonia, likely healthcare acquired -Chest x-ray on admission noted concern for new infiltrate in the right upper lobe not previously seen from his previous admission -CT chest as above ordered for additional assessment -Continue ceftriaxone/azithromycin for now #Atrial fibrillation -Management per primary team -As he has history of prosthetic valve, cardiology consultation could be valuable Cher Nicole MD Time with Patient: Greater than 30
[2023-05-19] MEDS: METOPROLOL TARTRATE 50 MG TAB PO SCH (17:23)
[2023-05-19] MEDS: WARFARIN 7.5 MG TAB PO SCH (20:11)
[2023-05-19] MEDS: SYMBICORT 160-4.5 MCG INHALER INHALATION SCH (20:16)
[2023-05-19] MEDS: HYDROcodone/APAP 10-325MG 1 EACH TAB PO PRN (20:26)
--- NOTE | 2023-05-19 21:41 | CT ---
EXAMINATION TYPE: CT chest w con CT DLP: 345.6 mGycm, Automated exposure control for dose reduction was used. DATE OF EXAM: 05/19/2023 2:34 PM COMPARISON: CT chest 04/26/2023 . CLINICAL INDICATION:Male, 63 years old with history of Lung cancer with progressive hemoptysis; PHH, lung cancer with progressive hemoptysis TECHNIQUE: Multiple axial images were obtained through the chest. Sagittal and coronal reformats were created for review. Contrast used:100 mL of Isovue 300 with IV Contrast (None if empty) Oral contrast used: (None if empty) FINDINGS: FINDINGS: LOWER NECK: Visualized thyroid is unremarkable. Partially visualized mildly larger adenopathy at the left base of neck/upper chest (2.2 cm versus 1.9 cm) partially compresses the internal jugular vein b ut remains patent. Soft tissue density posterior to the pectoralis major on the left is now 2.8 cm an d more conspicuous, versus 2.1 cm before. Small nodules/lymph nodes at the right medial supraclavicul ar region are new or larger than before. There is mild slightly progressed narrowing of the left brac hiocephalic vein and upper to mid SVC due to the enlarging soft tissue densities. HEART: Upper normal in size. Moderate coronary artery calcifications. Aortic valve prosthesis. No per icardial effusion or nodularity. VASCULATURE: Three-vessel aortic arch with mild/moderate calcification, vessels are patent. No aorti c aneurysm or dissection. The main pulmonary artery is not enlarged, 2.6 cm. Left pulmonary artery is unremarkable without evidence of filling defect. Narrowing of the right upper lobe artery by surroun ding soft tissue mass shows slight interval worsening. No intrinsic filling defects are seen. Mass al so again surrounds and moderately narrows the right middle and lower lobe arteries, slightly worse th an previous. New from prior, just beyond the level of the hilar mass, there is filling defect in the posterior medial segment of the right lower lobe artery, and smaller defects peripherally to the subs egmental levels. There is also likely a small filling defect in the lateral basal segmental branch. MEDIASTINUM: Redemonstration of extensive adenopathy, which has worsened. In the superior mediastinum just inferior to the thyroid on the right is a 24 mm lymph node which was 20 mm. A left-sided node i s now 20 mm and was 17 mm. Prevascular node on the left is 26 mm and was 21 mm. Right paratracheal no de is now 28 mm short axis and was 27 mm. This again extends in contiguity with soft tissue mass/galen opathy to the right hilum and right subcarinal/subbronchial, the largest portions of which now measur ing 93 x 63 mm which was 80 x 63 mm, and 58 x 47 mm subcarinal/infrahilar which was 56 x 35 mm. Left inferior paratracheal node now 25 mm was 21 mm. Other smaller mediastinal nodes are also present and many are larger. Soft tissue thickening in the left hilum suggestive of adenopathy however not easil y measurable, appears the same to minimally improved. Moderate sized hiatal hernia again noted with a similar appearance of suspected soft tissue thickening at the level of the hernia and possibly prox imal stomach which may indicate neoplastic involvement and/or inflammation. LUNGS/ PLEURA: Moderate background emphysematous changes bilaterally with an upper lobe predominance. Small pleural effusions, right larger than left, minimally decreased from prior. No pneumothorax. Compressive atelectasis adjacent to the effusions. Previous extensive groundglass opacity throughout the left upper lobe with numerous interspersed nodular densities appear significantly improved, espec ially the groundglass component and the smaller of the nodular densities. The largest remaining nodul e seen image 17 series 205 is 16 x 13 mm, not significantly changed from prior. A previous 7 mm nodul e in the left lower lobe is no longer discretely visualized. No new or larger left lung nodules. On the right, the previous upper lobe groundglass opacity mostly posteriorly along the oblique fissur e has worsened, more consolidative in appearance and obscuring a couple of the previously detected pu lmonary nodules. Previous 5 mm nodule in the right lower lobe appears stable, image 33. In the superi or segment of the right lower lobe there is new or significantly larger nodularity seen for example 1 6 mm image 29, 11 mm image 25, and 9 mm image 24. AIRWAY: Central airways remain patent. Slight worsening of some narrowing of the right bronchial bran ches in the hilar region by surrounding soft tissue mass without intrinsic defect seen. MUSCULOSKELETAL: Sternotomy wires are present. No evidence of lytic/blastic bony lesion in the chest . Mild degenerative changes of the thoracic spine. SOFT TISSUES: Right axillary abril mass is larger, now 26 mm short axis and was 22 mm. Soft tissue im plant right upper arm laterally abutting the musculature is only partially included in the field of v iew but appears larger. Mild bilateral gynecomastia. UPPER ABDOMEN: Liver again appears heterogeneous but not as prominent as before; uncertain if this re presents diffuse metastatic involvement, drug reaction, or other infiltrative process such as steatos is. In any event, the numerous soft tissue masses and adenopathy in the upper abdomen described previ ously show appreciable enlargement, including conglomerate masses towards the andi hepatis which now completely surrounded and mildly narrow the common hepatic artery, though with this remains patent. Portal vein is subject to mild mass effect but remains patent. Heterogeneous spleen appears stable, u ncertain if metastatic involvement, drug effect, or phase of contrast. There is an enlarging small so ft tissue density between the posterior medial spleen and the diaphragm. Left periaortic adenopathy h as increased in size. Increased size and confluence of moderately large conglomerate right adrenal me tastasis, in total is 42 x 70 cm. Left adrenal metastasis is also larger now 32 x 20 mm. Enlarging sm all nodules along the surface of the kidneys, on the right is 17 mm and was 12 mm. On the left, is a1 8 mm and was 12 mm. Partially seen intraperitoneal mass in the anterior left abdomen is at least 67 m m and was about 51 mm. Cholelithiasis redemonstrated. Mild atherosclerotic disease of the upper abdom inal aorta and branches. IMPRESSION: 1. Overall significant progression of metastatic disease, with extensive soft tissue metastases/node s in the neck and chest showing appreciable increase in size. 2. Worsening conglomerate mediastinal and hilar soft tissue masses/adenopathy result in slightly wor sened narrowing of branches of the right pulmonary artery and bronchi in the right hilum. 3. New pulmonary emboli in the right lower lobe artery, segmental and subsegmental branches. 4. Interval worsening of opacity in the right upper lobe, concerning for spread of tumor with possib le superimposed pneumonitis. This obscures some of the lung nodules evident before. There are also en larging nodules in the superior segment of the right lower lobe. 5. Small bilateral pleural effusions, minimally decreased from prior. 6. Improved groundglass opacities and multiple nodules in the left lung, with small residual nodular ity. 7. Worsening extensive upper abdominal metastatic disease, with significant enlargement of metastase s/nodes as above.
[2023-05-19] MEDS: METOPROLOL TARTRATE 50 MG TAB PO ONE (22:13)
[2023-05-20 06:20] LABS: INR 3.6 (<1.2); Prothrombin Time 35.5 sec (10.0-12.5)
[2023-05-20] MEDS: PROCHLORPERAZINE 10 MG TAB PO SCH (08:10)
[2023-05-20] MEDS: FUROSEMIDE 40 MG TAB PO SCH (08:10)
[2023-05-20] MEDS: ASPIRIN 81 MG PO SCH (08:10)
[2023-05-20] MEDS: FOLIC ACID 1 MG TAB PO SCH (08:10)
[2023-05-20] MEDS: AZITHROMYCIN 500 MG TAB PO SCH (08:10)
[2023-05-20] MEDS: PANTOPRAZOLE 40 MG TABLET PO SCH (08:10)
[2023-05-20] MEDS: BACLOFEN 10 MG TAB PO SCH (08:10)
[2023-05-20 09:07] LABS: HCT 25.4 % (39.6-50.0); HGB 7.8 g/dL (13.0-17.0); MCH 24.8 pg (27.0-32.0); MCHC 30.7 g/dL (32.0-37.0); MCV 80.9 FL (80.0-97.0); Mean Platelet Volume 10.9 FL (9.5-12.2); NRBC Per 100 WBC 0 X 10*3/uL (0.00-0.01); Platelet Count 270 X 10*3/uL (140-440); RBC 3.14 X 10*6/uL (4.40-5.60); RDW 15.9 % (11.5-14.5); WBC 8.21 X 10*3/uL (4.50-10.00)
[2023-05-20 09:24] LABS: ALT 16 U/L (10-49); AST 20 U/L (14-35); Albumin 3.5 g/dL (3.8-4.9); Albumin/Globulin Ratio 1.46 Ratio (1.60-3.17); Alkaline Phosphatase 70 U/L (41-126); BUN/Creat Ratio 8.88 Ratio (12.00-20.00); Blood Urea Nitrogen 7.1 mg/dL (9.0-27.0); Calcium 8.8 mg/dL (8.7-10.3); Chloride 99 mmol/L (96-109); Globulin 2.4 g/dL (1.6-3.3); Glucose 99 mg/dL (70-110); Potassium 4.3 mmol/L (3.5-5.5); Sodium 134 mmol/L (135-145); Total Bilirubin 0.8 mg/dL (0.3-1.2); Total Protein 5.9 g/dL (6.2-8.2)
[2023-05-20] MEDS: PHYTONADIONE 5 MG in SODIUM CHLORIDE 0.9% 50 ML IVPB STA (09:35)
--- NOTE | 2023-05-20 09:51 | US ---
EXAMINATION TYPE: US venous doppler duplex LE DATE OF EXAM: 05/20/2023 9:38 AM COMPARISON: NONE CLINICAL INDICATION: Male, 63 years old with history of pulmonary embolism; SIDE PERFORMED: Bilateral TECHNIQUE: The lower extremity deep venous system is examined utilizing real time linear array sonog claudia with graded compression, doppler sonography and color-flow sonography. VESSELS IMAGED: Common Femoral Vein Deep Femoral Vein Greater Saphenous Vein * Femoral Vein Popliteal Vein Small Saphenous Vein * Proximal Calf Veins (* superficial vessels) Right Leg: Negative for DVT Left Leg: Negative for DVT Difficult study due to uncooperative patient . In discussion with technologist there is complete comp ression of the left popliteal vein. Images are likely limited obtained for blood flow. IMPRESSION: 1. Bilateral lower extremity ultrasound negative for deep venous thrombosis. 2. Limited examination due to patient cooperation.
[2023-05-20] MEDS: ALPRAZolam 0.5 MG TAB PO STA (10:02)
[2023-05-20] MEDS: ALPRAZolam 0.5 MG TAB PO SCH ×2 (10:10→16:19)
--- NOTE | 2023-05-20 10:16 | P.CRDCN ---
History of Present Illness Consult date: 05/20/23 Consult reason: atrial fibrillation History of present illness: History of present illness: This is a 63-year-old male patient of Dr. Venegas with past medical history of cardiomyopathy with known EF of 35%, Cobb mechanical aortic valve performed at [facility] for bicuspid aortic valve with goal of INR 23 for atrial fibrillation, valve goal 1.52, ascending aortic aneurysm status post hemiarch repair, persistent atrial fibrillation status post MARY JO and cardioversion March 2023 which was initially successful with relapse after colonoscopy, currently in atrial fibrillation rate controlled strategy, mild nonobstructive coronary artery disease, hypertension, dyslipidemia, psoriasis, lung cancer stage IV with metastatic disease to the duodenum, soft tissue nodules of the abdomen, adrenal glands and possibly brain, chronic hypoxic respiratory failure on home O2. We have been asked to evaluate the patient for A-fib with RVR. Patient presented to the hospital due to persistent hemoptysis. Patient complains of low right lateral rib pain and shortness of breath. He is on home oxygen therapy as well. Patient is scheduled for MRI of the brain today which has been ordered by oncology. Telemetry is atrial fibrillation heart rate about 116. Patient is complaining of severe sciatic pain. EKG atrial fibrillation at 126 bpm Chest x-ray: No change and right hilar mass adenopathy. Interval development of partially consolidative opacity in the right upper lobe. CAT scan of the chest revealed significant progression of metastatic disease. New pulmonary emboli in the right lower lobe artery. WBC 8.2, hemoglobin 7.8, platelet count 270. INR 3.6. Sodium 134, potassium 4.3, BUN 7, creatinine 0.8. Home cardiac medications: Aspirin 81 mg daily, Lasix 40 mg daily, Lopressor 50 mg twice daily, warfarin 7.5 mg daily Review Of Systems: At the time of my evaluation: Constitutional: No fever, no chills. No weakness, fatigue or lethargy. EENT: No headache. No dizziness. Lungs: No shortness of breath, cough, no sputum production. No wheezing. Cardiovascular: No chest pain, no lower extremity edema. No palpitations. No paroxysmal nocturnal dyspnea. No orthopnea. No lightheadedness or dizziness. No syncopal episodes. Abdominal: No abdominal pain. No nausea, vomiting. No diarrhea. No constipation. No bloody or tarry stools. Genitourinary: No dysuria.. No urinary retention. Musculoskeletal: No myalgias. No muscle weakness, no frequent falls. No back pain. No neck pain. Integumentary: No wounds. No rash. No unusual bruising. Neurologic: No aphasia. No facial droop. No change in mentation. No head injury. No headache. Physical examination: Gen: This is a thin 63-year-old male. He is sitting up in a chair and appears to be in no acute distress. VS: reviewed blood pressure 117/69. Pulse ox 100% on 2 L nasal cannula. HEENT: Head is atraumatic, normocephalic. Pupils equal, round. Sclerae is anicteric. NECK: Supple. No JVD. LUNGS: Bilateral scattered rhonchi. No intercostal retractions. HEART: Irregular rate and rhythm. No murmur. [place] second heart sound ABDOMEN: Soft No tenderness. EXTREMITIES: No pedal edema. No calf tenderness. NEUROLOGICAL: Patient is awake, alert and oriented x3. Assessment: Persistent atrial fibrillation with RVR, mildly uncontrolled Cardiomyopathy with known EF 35% History of On-X aortic mechanical valve for bicuspid aortic valve Ascending aortic aneurysm s/p hemiarch repair Mild nonobstructive coronary artery disease on cardiac catheterization 2020 Hypertension Dyslipidemia Hemoptysis New pulmonary emboli in the right lower lobe artery, segmental and subsegmental branches Opacity in the right upper lobe concerning for tumor spread versus pneumonia Adenocarcinoma of the lung with extensive metastatic disease Plan: Continue patient's home cardiac medications Increase metoprolol tartrate frequency to 50 mg 3 times daily Continue Coumadin, pharmacy to dose Further recommendations to follow based upon clinical course Thank you kindly for this consultation. Nurse practitioner note has been reviewed, I agree with documented findings and plan of care. Patient was seen and examined. Past Medical History Past Medical History: Atrial Fibrillation, Coronary Artery Disease (CAD), Cancer, Heart Failure, Hyperlipidemia, Hypertension, Skin Disorder Additional Past Medical History / Comment(s): chronic lower back pain w/ Lt. sciatica, TBI, hiatal hernia, cardiomyopathy, psoriasis, CHF - had a recent script for Jardiance and states, "I'm not taking it, I saw it on t.v, all the side effects." diagnosed with lung cancer 03/2023 History of Any Multi-Drug Resistant Organisms: None Reported Past Surgical History: Cardiac Valve Replacement, Coronary Bypass/CABG Additional Past Surgical History / Comment(s): Rt. knee arthroscopy, jaw/facial reconstruction, aortic valve replacement w/ on-x mechanical valve & aortic root repair 2019 Past Anesthesia/Blood Transfusion Reactions: No Reported Reaction Past Psychological History: Anxiety, PTSD Additional Psychological History / Comment(s): describes worsening anxiety recently w/ health issues and bills, PTSD from - also recently stopped xanax, stopped drinking January 2023 Smoking Status: Former smoker Past Alcohol Use History: None Reported Additional Past Alcohol Use History / Comment(s): Per patient and his , has not had a drink since Feb 2023 Past Drug Use History: None Reported Additional Drug Use History / Comment(s): Denies current Mariuana use. Quit Feb 2023. - Past Family History Mother Family Medical History: No Reported History Father Additional Family Medical History / Comment(s): Passed when patient was a child possibly related to heart disease. Medications and Allergies Home Medications Medication Instructions Recorded Confirmed Type Aspirin [Children's Aspirin] 81 mg PO DAILY@0800 11/11/22 05/19/23 History Albuterol Inhaler [Ventolin Hfa 2 puff INHALATION RT-Q6H PRN 01/29/23 05/19/23 History Inhaler] Baclofen 5 mg PO BID@0800,1300 05/11/23 05/19/23 History Furosemide [Lasix] 40 mg PO DAILY@0805/11/23 05/19/23 History Metoprolol Tartrate [Lopressor] 50 mg PO BID@0800,199905/11/23 05/19/23 History Pantoprazole [Protonix] 40 mg PO DAILY@0800 05/11/23 05/19/23 History Prochlorperazine [Compazine] 10 mg PO DAILY@0805/11/23 05/19/23 History Warfarin [Coumadin] 7.5 mg PO DAILY@199905/11/23 05/19/23 History fentaNYL 25MCG/HR PATCH [Duragesic 1 patch TOPICAL Q72H 05/11/23 05/19/23 History 25MCG/HR] Budesonide-Formot 160-4.5 Mcg 2 puff INHALATION RT-BID 30 Days 05/15/23 05/19/23 Rx [Symbicort 160-4.5 Mcg Inhaler] #1 each Folic Acid 1 mg PO DAILY 30 Days #30 tab 05/15/23 05/19/23 Rx HYDROcodone/APAP 10-325MG [Wilbur 1 tab PO Q4HR PRN 05/19/23 05/19/23 History 10-325] oxyCODONE HCL [oxyCODONE HCL (IR)] 5 mg PO Q6H PRN 05/19/23 05/19/23 History Allergies Allergy/AdvReac Type Severity Reaction Status Date / Time acetaminophen Allergy Rash/Hives Verified 05/19/23 11:20 [From Darvocet-N 100] propoxyphene Allergy Rash/Hives Verified 05/19/23 11:20 [From Darvocet-N 100] amitriptyline [From Elavil] AdvReac NIGHTMARES Verified 05/19/23 11:20 hydralazine AdvReac MIGRAINES Verified 05/19/23 11:20 naproxen [From Naprosyn] AdvReac Nausea Verified 05/19/23 11:20 Physical Exam Vitals: Vital Signs Temp Pulse Pulse Resp BP BP Pulse Ox 05/20/23 01:43 98.4 F 88 16 107/68 97 05/19/23 19:01 98.3 F 103 H 18 110/67 95 05/19/23 15:14 97.5 F L 111 H 18 129/83 97 05/19/23 14:46 98.1 F 101 H 22 119/79 100 05/19/23 11:22 118 H 20 140/97 100 05/19/23 09:05 101 H 20 121/95 100 05/19/23 07:34 116 H 20 103/76 100 Intake and Output 05/19/23 05/20/23 05/20/23 22:59 06:59 14:59 Intake Total 300 Output Total 200 350 Balance 100 -350 Intake: Intake, IV Titration 300 Amount Azithromycin 500 mg In 250 Sodium Chloride 0.9% 250 ml @ 250 mls/hr IVPB ONCE STA Rx#:[id number] cefTRIAXone 2 gm In 50 Sodium Chloride 0.9% 50 ml @ 100 mls/hr IVPB Q24HR ROB Rx#:[id number] Output: Urine 200 350 Other: Voiding Method Urinal Weight 54.431 kg Results 05/20/23 06:00 05/20/23 06:00 Cardiac Enzymes 05/19/23 Range/Units 07:41 AST 27 (17-59) U/L Coagulation 05/19/23 05/20/23 Range/Units 07:41 06:00 PT 27.1 H 35.5 H (10.0-12.5) sec APTT 32.1 H (22.0-30.0) sec CBC 05/19/23 Range/Units 07:41 WBC 8.5 (3.8-10.6) k/uL RBC 3.19 L (4.30-5.90) m/uL Hgb 8.2 L (13.0-17.5) gm/dL Hct 25.0 L (39.0-53.0) % Plt Count 238 (150-450) k/uL Comprehensive Metabolic Panel 05/19/23 Range/Units 07:41 Sodium 128 L (137-145) mmol/L Potassium 4.1 (3.5-5.1) mmol/L Chloride 96 L (98-107) mmol/L Carbon Dioxide 24 (22-30) mmol/L BUN 15 (9-20) mg/dL Creatinine 1.01 (0.66-1.25) mg/dL Glucose 107 H (74-99) mg/dL Calcium 8.6 (8.4-10.2) mg/dL AST 27 (17-59) U/L ALT 21 (4-49) U/L Alkaline Phosphatase 75 (38-126) U/L Total Protein 6.1 L (6.3-8.2) g/dL Albumin 3.3 L (3.5-5.0) g/dL Current Medications Generic Name Dose Route Start Last Admin Trade Name Freq PRN Reason Stop Dose Admin Hydrocodone Bitart/Acetaminophen 1 each 05/19/23 17:32 05/20/23 03:35 Hydrocodone/Apap 10-325mg 1 Each Tab PO 1 each Q4HR PRN Administration Pain Albuterol/Ipratropium 3 ml 05/19/23 12:00 05/19/23 20:16 Ipratropium-Albuterol 3 Ml Neb INHALATION Not Given RT-QID [facility] Aspirin 81 mg 05/20/23 08:00 Aspirin 81 Mg PO DAILY@0800 [facility] Azithromycin 500 mg 05/20/23 09:00 Azithromycin 500 Mg Tab PO 05/21/23 09:01 DAILY [facility] Protocol Baclofen 5 mg 05/20/23 08:00 Baclofen 10 Mg Tab PO BID@0800,1300 [facility] Budesonide/Formoterol Fumarate 2 puff 05/19/23 20:00 05/19/23 20:16 Symbicort 160-4.5 Mcg Inhaler INHALATION Not Given RT-BID [facility] Folic Acid 1 mg 05/20/23 09:00 Folic Acid 1 Mg Tab PO DAILY [facility] Furosemide 40 mg 05/20/23 08:00 Furosemide 40 Mg Tab PO DAILY@0800 [facility] Hydromorphone HCl 0.5 mg 05/19/23 08:17 05/20/23 04:36 Hydromorphone 0.5 Mg/0.5 Ml Syringe IVP 0.5 mg Q3HR PRN Administration Moderate Pain (Scale 4 to 6) Sodium Chloride 1,000 mls @ 75 mls/hr 05/19/23 08:30 05/20/23 06:12 Saline 0.9% IV 75 mls/hr .[id number] [facility] Administration Ceftriaxone Sodium 2 gm/ 50 mls @ 100 mls/hr 05/20/23 09:00 Sodium Chloride IVPB 05/23/23 09:29 Q24HR [facility] Protocol Metoprolol Tartrate 50 mg 05/19/23 20:00 05/19/23 17:23 Metoprolol Tartrate 50 Mg Tab PO 50 mg BID@0800,2000 [facility] Administration Miscellaneous Information 1 each 05/19/23 09:06 Pneumonia Protocol Utilized 1 Each Misc PO ONCE PRN Per Protocol Miscellaneous Information 1 each 05/19/23 13:58 Rx Info: Iv Contrast Was Given 1 Each Misc MISCELLANE 05/21/23 13:59 DAILY PRN Per Protocol Miscellaneous Information 0 each 05/19/23 18:02 Warfarin Per Pharmacy MISCELLANE DIRECTED PRN Per Protocol Naloxone HCl 0.2 mg 05/19/23 08:17 Naloxone 0.4 Mg/Ml 1 Ml Vial IV Q2M PRN Opioid Reversal Oxycodone HCl 5 mg 05/19/23 17:32 05/20/23 06:16 Oxycodone Hcl 5 Mg Tab PO 5 mg Q6H PRN Administration Severe Breakthrough Pain Pantoprazole Sodium 40 mg 05/20/23 08:00 Pantoprazole 40 Mg Tablet PO DAILY@0800 [facility] Prochlorperazine Maleate 10 mg 05/20/23 08:00 Prochlorperazine 10 Mg Tab PO DAILY@0800 [facility] Warfarin Sodium 7.5 mg 05/19/23 20:00 05/19/23 20:11 Warfarin 7.5 Mg Tab PO 7.5 mg DAILY@2000 [facility] Administration Protocol Intake and Output 05/19/23 05/20/23 05/20/23 22:59 06:59 14:59 Intake Total 300 Output Total 200 350 Balance 100 -350 Intake: Intake, IV Titration 300 Amount Azithromycin 500 mg In 250 Sodium Chloride 0.9% 250 ml @ 250 mls/hr IVPB ONCE STA Rx#:[id number] cefTRIAXone 2 gm In 50 Sodium Chloride 0.9% 50 ml @ 100 mls/hr IVPB Q24HR [facility] Rx#:[id number] Output: Urine 200 350 Other: Voiding Method Urinal Weight 54.431 kg 05/19/23 07:41 05/19/23 07:41
--- NOTE | 2023-05-20 11:26 | MR ---
EXAMINATION TYPE: MR brain wo/w con DATE OF EXAM: 05/20/2023 COMPARISON: 04/26/2023 HISTORY: Confusion, lung cancer. CONTRAST: Performed utilizing 5.5 mL intravenous Gadavist gadolinium contrast. TECHNIQUE: Multiplanar, multiecho imaging on a 3.0 Isa magnet is performed through the brain. Stud y is performed within 24 hours of arrival to the hospital. The craniovertebral junction is normal. The pituitary is normal. Diffusion-weighted imaging is performed. There is a punctate cortical hyperintensity left vertex. Se terri 303 image 224. There is a punctate hyperintensity within the left cerebellum. Series 303, image 96. An additional punctate area may be within the more inferior left cerebellum, series 303 image 64. There is some mild scattered subcortical white matter changes on the inversion recovery sequences. Ar eas of hyperintensity on diffusion appear to be faintly visualized on the inversion recovery sequence s as well. There is a large right frontal lobe hyperintensity on inversion recovery suspicious for metastatic le [place] this area measures 1.6 cm in diameter. A 1.4 cm ring-enhancing lesion is identified on the postc ontrast T1 images. Ventricles and sulci are appropriate for the patient age. IMPRESSION: 1. 1.4 cm ring-enhancing lesion with some mild vasogenic edema adjacent right frontal lobe. Finding i s suspicious for metastatic lesion. 2. Couple punctate hyperintensities identified on diffusion could be additional areas of gliosis or i schemic type change discussed above.
--- NOTE | 2023-05-20 13:56 | P.PN ---
Subjective Progress Note Date: 05/20/23 63-year-old male patient with metastatic pulmonary adenocarcinoma and the patient has a bulky tumor in his chest with extensive adenopathy involving the right hilum and the right paratracheal and subcarinal area the largest portions measuring 8 x 86.3 cm in size in the hilar area and 5.6 x 3.5 cm inside the subcarinal and infrahilar area. There is also lymphadenopathy involving the left hilum other smaller lymph nodes within the mediastinum and the patient has small pleural effusion right more than left along with compressive atelectatic changes and pleural-based nodules in the right and extensive groundglass changes in the left upper lobe with numerous nodular densities up to 16 x 13 mm in size. Smaller nodules also seen in the left lung in addition. In summary, the patient disease is metastatic as the patient also has extensive heterogeneous liver concerning for diffuse metastases and a stain is also enlarged and the patient has multiple soft tissue masses/lymphadenopathy in the upper abdomen. 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 The patient was admitted to the hospital on 05/12/2023 for shortness of breath and hemoptysis. His hemoptysis was attributed to his metastatic lung cancer and the patient was taken anticoagulation with warfarin and his INR was supratherapeutic. At that time, his INR was reversed, however, the patient in the going back on warfarin as the patient is a mechanical aortic valve and there is no reasonable alternatives to that and were targeting a titer INR control between 2 and 2.5. He was supposed to follow-up with oncology on outpatient basis. In addition oncology saw him during his hospital stay and thought that the brain lesion was small and there was no need for radiation this point in time. Following his discharge, the patient encounter ongoing hemoptysis which never stopped since his discharge. He came into the hospital for further advice. Total amount of blood was probably in the form of 10 mL overnight mixed with mucus. No blood clots. No worsening shortness of breath. His chronically dyspneic and is also having hypoxic respiratory failure maintained on oxygen. He has atrial fibrillation, coronary artery disease, and previous aortic valve replacement with a mechanical valve. I did see the patient during his last hospital stay and the patient was thought to be clinically stable for discharge to be followed up by oncology. Final decision on treatment for his lung cancer has not been made as the patient is awaiting PDL 1 and NGS analysis prior to quitting for any further treatment. He was supposed to be seen by medical oncology early next week. For now, the patient's echoes at 8.5, hemoglobin is 8.2 which is stable since his discharge. INR is at 2.7 with a PT of 27. BUN is a 50 with a creatinine of 1.01 and sodium level is 128. His oxygenation is stable at 3 L with a pulse ox of 99%. Computed tomography scan of the chest was again ordered The patient is seen today 05/20/2023 in follow-up on the regular medical floor. He is awake and alert in no acute distress. He denies any further hemoptysis. He has some right-sided chest discomfort on inhalation. Computed tomography scan of the chest from last evening shows overall significant progression of metastatic disease with extensive soft tissue metastasis/nodes in the neck and chest showing appreciable increase in size. There is worsening, lumbar me diastinal and hilar soft tissue masses/adenopathy resultant slightly worsened narrowing of branches of the right pulmonary artery and bronchi in the right hilum. New pulmonary emboli in the right lower lobe artery, segmental and sent segmental branches. Interval worsening of opacity in the right upper lobe, concerning for spread of tumor with possible superimposed pneumonitis. This obscures some the lung nodules evident before. There are also enlarging nodules in the superior segment of the right lower lobe. Small bilateral pleural effusions. Improved groundglass opacities and multiple nodules in the left lung, with residual nodularity. Worsening extensive upper abdominal metastatic disease, with significant enlargement of metastasis/nodes as above. Doppler of the lower extremity was negative for DVT. MRI of the brain reveals a 1.4 cm ring enhancing lesion with some mild vasogenic edema adjacent right frontal lobe. Suspicious for metastatic lesion. White count 8.2. Hemoglobin 7.8. INR 3.6. Sodium 134. Potassium 4.3. Bicarb 23. BUN 7. Creatinine 0.8. Glucose 99. He remains on DuoNeb inhalations, Symbicort antibiotics in the form of ceftriaxone. He is continued on Decadron 4 mg IVP every 6 hours. Objective - Vital Signs Vital signs: Vital Signs Temp 98.4 F 05/20/23 12:30 Pulse 97 05/20/23 12:30 Resp 18 05/20/23 12:30 BP 109/66 05/20/23 12:30 Pulse Ox 98 05/20/23 12:30 FiO2 Intake & Output 05/19/23 05/20/23 05/20/23 18:59 06:59 18:59 Intake Total 300 Output Total 550 325 Balance 300 -550 -325 Weight 54.431 kg Intake: Intake, IV Titration 300 Amount Azithromycin 500 mg In 250 Sodium Chloride 0.9% 250 ml @ 250 mls/hr IVPB ONCE STA Rx#:[id number] cefTRIAXone 2 gm In 50 Sodium Chloride 0.9% 50 ml @ 100 mls/hr IVPB Q24HR [facility] Rx#:[id number] Output: Urine 550 325 Other: Voiding Method Urinal Toilet - Exam GENERAL EXAM: Alert, active, 63-year-old male, on 3 L nasal cannula, comfortable in no apparent distress. HEAD: Normocephalic. EYES: Normal reaction of pupils, equal size. NOSE: Clear with pink turbinates. THROAT: No erythema or exudates. NECK: No masses, no JVD. CHEST: No chest wall deformity. LUNGS: Equal air entry with few bilateral scattered rhonchi,. CVS: S1 and S2 normal with no audible murmur, irregular rhythm. ABDOMEN: No hepatosplenomegaly, normal bowel sounds, no guarding or rigidity. SPINE: No scoliosis or deformity SKIN: No rashes CENTRAL NERVOUS SYSTEM: No focal deficits, tone is normal in all 4 extremities. EXTREMITIES: There is no peripheral edema. No clubbing, no cyanosis. Peripheral pulses are intact. - Labs CBC & Chem 7: 05/20/23 06:00 05/20/23 06:00 Labs: Abnormal Lab Results - Last 24 Hours (Table) 05/19/23 05/20/23 05/20/23 Range/Units 07:41 06:00 06:00 RBC 3.14 L (4.40-5.60) X 10*6/uL Hgb 7.8 L (13.0-17.0) g/dL Hct 25.4 L (39.6-50.0) % MCH 24.8 L (27.0-32.0) pg MCHC 30.7 L (32.0-37.0) g/dL RDW 15.9 H (11.5-14.5) % PT 35.5 H (10.0-12.5) sec INR 3.6 H (<1.2) Sodium (135-145) mmol/L BUN (9.0-27.0) mg/dL BUN/Creatinine Ratio (12.00-20.00) Ratio Total Protein (6.2-8.2) g/dL Albumin (3.8-4.9) g/dL Albumin/Globulin Ratio (1.60-3.17) Ratio Procalcitonin 0.15 H (0.02-0.09) ng/mL 05/20/23 Range/Units 06:00 RBC (4.40-5.60) X 10*6/uL Hgb (13.0-17.0) g/dL Hct (39.6-50.0) % MCH (27.0-32.0) pg MCHC (32.0-37.0) g/dL RDW (11.5-14.5) % PT (10.0-12.5) sec INR (<1.2) Sodium 134 L (135-145) mmol/L BUN 7.1 L (9.0-27.0) mg/dL BUN/Creatinine Ratio 8.88 L (12.00-20.00) Ratio Total Protein 5.9 L (6.2-8.2) g/dL Albumin 3.5 L (3.8-4.9) g/dL Albumin/Globulin Ratio 1.46 L (1.60-3.17) Ratio Procalcitonin (0.02-0.09) ng/mL Assessment and Plan Assessment: Episodic hemoptysis due to his underlying lung cancer probably invading the right upper lobe bronchus which probably is the source of bleed in addition to intake of anticoagulation with warfarin. INR is at 2.7. No signs of any massive hemoptysis and the patient is able to cough out some bloody mucus. No blood clots. No interval worsening in the overall respiratory status as his last discharge. Metastatic adenocarcinoma of the lung and diagnosis was made by biopsy of the exiting mass and intestinal mass. 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 The patient has extensive mediastinal and the right hilar soft tissue masses and the lymphadenopathy consistent with metastatic disease. Patient also has enlarged right axillary lymph node and small bilateral pleural effusions and multiple bilateral pulmonary nodules and areas of groundglass opacity suggestive of metastases. Noted the right hilar mass surrounding the narrowed the bedside the pulmonary artery pressure was in the right upper lobe. Patient also has extensive upper abdominal metastases or in the liver and spleen. There is also evidence of brain metastases. Patient has not started any treatment under the care of medical oncology. Follow-up computed tomography scan of the chest from 05/19/2023 shows overall significant progression of metastatic disease with extensive soft tissue metastasis/nodes in the neck and chest showing appreciable increase in size. There is worsening, lumbar mediastinal and hilar soft tissue masses/adenopathy resultant slightly worsened narrowing of branches of the right pulmonary artery and bronchi in the right hilum. New pulmonary emboli in the right lower lobe artery, segmental and sent segmental branches. Interval worsening of opacity in the right upper lobe, concerning for spread of tumor with possible superimposed pneumonitis. This obscures some the lung nodules evident before. There are also enlarging nodules in the superior segment of the right lower lobe. Small bilateral pleural effusions. Improved groundglass opacities and multiple nodules in the left lung, with residual nodularity. Worsening extensive upper abdominal metastatic disease, with significant enlargement of metastasis/nodes as above. Acute hemoptysis secondary to lung cancer and coagulopathy who warfarin use, source being most likely the right lung base and the CAT scan findings, currently inactive and stable Brain metastases with a left occipital lobe peripherally enhancing lesion suspicious for metastases and hemosiderin the position suggestive of prior hemorrhage. No evidence of any acute or subacute infarction based on MRI of the brain that was done on 04/26/2023. The patient was seen by radiation oncology. MRI of the brain today 05/20/2023 revealed a 1.4 cm ring-enhancing lesion was some mild vasogenic edema adjacent right frontal lobe. Suspicious for metasta tic lesion. Chronic atrial fibrillation, maintained on warfarin Mechanical aortic valve placed in 2019, maintain on warfarin, history of bicuspid aortic valve Coronary artery disease bypass surgery, mild nonobstructive CAD current cardiac catheterization from [facility] 2019 CHF with an underlying impaired systolic heart failure with an ejection fraction of 35-40% Hypertension Hyperlipidemia Psoriasis Previous history of traumatic brain injury Anemia chronic disease, hemoglobin is stable since his last discharge Plan: The patient was seen and evaluated Computed tomography scan of the chest, Dopplers of the lower extremities, MRI of the brain, medications and labs reviewed Computed tomography scan shows significant progression. MRI of brain with suspected metastatic lesion Medical and radiation oncology consulted To start Alimpta tomorrow Remains on Decadron Remains on warfarin Titrate the FiO2 as tolerated We will continue to follow I have personally seen and examined the patient, performed the documentation and the assessment and plan as written. Number of minutes spent on the visit: 10.
--- NOTE | 2023-05-20 15:16 | P.PN ---
Subjective Progress Note Date: 05/20/23 Principal diagnosis: Hemoptysis, lung adenocarcinoma In f/u today pt cont to have erratic behaviors, mood swings, confusion. He fell asleep during conversation, then was wide awake moving between bed and chair. He is c/o sciatica pain and shoulder pain. No fever, nausea or vomiting. Objective - Vital Signs Vital signs: Vital Signs Temp 98.5 F 05/20/23 07:35 Pulse 110 H 05/20/23 08:18 Resp 22 05/20/23 08:26 BP 117/69 05/20/23 07:35 Pulse Ox 100 05/20/23 08:08 FiO2 Intake & Output 05/19/23 05/20/23 05/20/23 18:59 06:59 18:59 Intake Total 300 Output Total 550 325 Balance 300 -550 -325 Weight 54.431 kg Intake: Intake, IV Titration 300 Amount Azithromycin 500 mg In 250 Sodium Chloride 0.9% 250 ml @ 250 mls/hr IVPB ONCE STA Rx#:[id number] cefTRIAXone 2 gm In 50 Sodium Chloride 0.9% 50 ml @ 100 mls/hr IVPB Q24HR [facility] Rx#:[id number] Output: Urine 550 325 Other: Voiding Method Urinal Toilet - Constitutional General appearance: Present: cooperative, mild distress, thin - EENT Eyes: Present: anicteric sclerae, EOMI ENT: Present: hearing grossly normal - Respiratory Respiratory: bilateral: rhonchi (audible congestion) - Cardiovascular Rhythm: regular Abnormal Heart Sounds: Present: systolic murmur. Absent: diastolic murmur, rub, S3 Gallop, S4 Gallop, click, other - Peripheral edema leg Peripheral Edema: bilateral: None - Integumentary Integumentary: Present: normal - Neurologic Neurologic: Present: CNII-XII intact (grossly) - Musculoskeletal Musculoskeletal: Present: generalized weakness, strength equal bilaterally - Psychiatric Psychiatric: Present: A&O x's 3, intact judgment & insight - Labs CBC & Chem 7: 05/20/23 06:00 05/20/23 06:00 Labs: Abnormal Lab Results - Last 24 Hours (Table) 05/20/23 Range/Units 06:00 PT 35.5 H (10.0-12.5) sec INR 3.6 H (<1.2) - Imaging and Cardiology CT scan - chest: report reviewed MRI - head: report reviewed Venous US: report reviewed Assessment and Plan (1) Hemoptysis Current Visit: Yes Status: Acute Priority: High Code(s): R04.2 - HEMOPTYSIS SNOMED Code(s): 10115570 (2) Pulmonary embolism Current Visit: Yes Status: Acute Priority: High Code(s): I26.99 - OTHER PULMONARY EMBOLISM WITHOUT ACUTE COR PULMONALE SNOMED Code(s): 62888960 (3) Metastatic non-small cell lung cancer Current Visit: Yes Status: Acute Code(s): C34.90 - MALIGNANT NEOPLASM OF UNSP PART OF UNSP BRONCHUS OR LUNG SNOMED Code(s): 245603188 (4) Supratherapeutic INR Current Visit: Yes Status: Acute Priority: High Code(s): R79.1 - ABNORMAL COAGULATION PROFILE SNOMED Code(s): 222319624 Plan: PE -New Rt lung PE, BLE doppler for baseline-neg for DVT -Lemhi to be provoked 2/2 malignancy, recent multiple hospitalizations and holding of coumadin last week because of hemoptysis. -Plan is to reverse INR then start a heparin drip while inpt when INR is <2 Artificial heart valve -On coumadin. INR supratherapeutic today at 3.6. Vit K ordered to reverse and heparin drip will be ordered once INR<2 -Pt needs to be on anticoagulation but, INR regulation is challenging due to pt poor oral intake and possibly altered absorption (malignancy in GI tract). Pending Cardiology assessment. Will ask for recommendations for alternative anticoagulation (lovenox?) AMS -Repeat MRI brain-mood and behavioral changes-showing several lesions and vasogenic edema. Dexamethasone ordered. PPI BID -Rad Onc consulted, discussed case with them Hemoptysis -Has had previously. Resolved when INR <2. -Will try low intensity heparin drip. Pending Cardiology recs if lovenox can be used Non-small cell adenocarcinoma, non-squamous, metastatic disease, rapid progression -Pt 1st presented on 04/18 and has since been inpt 2 additional times in the last 3 weeks. He has been unable to stay out of the hospital long enough to start treatment. MRI brain is showing 1.4 cm ring enhancing lesion. CT chest is reporting significant progression of disease in just 3 weeks. NCCN guideline category 1 recommendation treatment has been ordered and is going to initiated inpt. Pain and anxiety from diagnosis -Pt home pain and anoxolytics were reordered -Meds for prevention of narcotic induced constipation ordered Attests: I have seen and examined pt, performed H&P, developed impression and plan of care. Discussed with dictator. Agree with documentation, dictated as a scribe.
[2023-05-20] MEDS: METOPROLOL TARTRATE 50 MG TAB PO SCH (16:20)
[2023-05-20 17:06] LABS: INR 1.6 (<1.2); Prothrombin Time 16.8 sec (10.0-12.5)
[2023-05-20] MEDS: CALCIUM CARBONATE 500 MG CHEWABLE PO SCH (17:08)
[2023-05-20] MEDS: DEXAMETHASONE SOD PHOSPHATE 4 MG/ML 1 ML VIAL IVP SCH (17:09)
[2023-05-20] MEDS ORDERED: WARFARIN 0.5 MG TAB PO ONE (18:00)
[2023-05-20] MEDS: HEPARIN SOD,PORK IN 0.45% NACL 25,000 UNIT in 0.45% NACL 1 250ML.BAG IV SCH (18:49)
[2023-05-20] MEDS: HYDROmorphone 0.5 MG/0.5 ML SYRINGE IVP PRN (19:46)
[2023-05-20] MEDS: SENNOSIDES-DOCUSATE SODIUM 1 EACH TAB PO SCH (21:51)
[2023-05-21 01:28] LABS: INR 1.2 (<1.2); Prothrombin Time 12.8 sec (10.0-12.5)
[2023-05-21] MEDS: HEPARIN SODIUM 1,000 UN/ML (10ML VL) IV PRN (02:08)
[2023-05-21 07:01] LABS: INR 1.1 (<1.2); Partial Thromboplastin Time 42.1 sec (22.0-30.0); Prothrombin Time 11.8 sec (10.0-12.5)
[2023-05-21] MEDS: LIDOCAINE 1% INJ 10MG/ML (20 ML MDV) SQ ONE (07:56)
--- NOTE | 2023-05-21 08:14 | P.PCN ---
Date of Procedure: 05/21/23 Preoperative Diagnosis: Metastatic pulmonary adenocarcinoma, need for chemotherapy and fluids Postoperative Diagnosis: same Procedure(s) Performed: Left basilic PICC line placement under ultrasound and fluoroscopic guidance Anesthesia: local Surgeon: Hernán Rangel Estimated Blood Loss (ml): 3 Pathology: none sent Condition: stable Disposition: floor Indications for Procedure: 63 year old male with history of metastatic adenocarcinoma presents for placement of PICC line for chemotherapy Description of Procedure: After written and informed consent was obtained the patient and all risks, benefits and competitions were described the patient was brought to the [facility] and laid in a supine position with his left arm outstretched on an armboard. The area of the left arm was prepped and draped in usual sterile fashion. Timeout was performed in normal fashion. Utilizing ultrasound the basilic vein was visualized and shown to be compressible without any visible thrombus. Under ultrasound guidance the basilic vein was then cannulated with a micropuncture needle and wire was placed under direct visualization of fluoroscopy. Introducer sheath was then placed. The catheter was measured and cut to the appropriate length which was 50 cm. The catheter was then guided through the breakaway sheath and the sheath was removed with good positioning was visualized under fluoroscopy. The catheter was pulled and flushed easily. It was then secured in place in normal fashion. Patient tolerated the procedure well was sent back to his room for recovery.
--- NOTE | 2023-05-21 08:16 | IR ---
PICC Insertion: EXAMINATION TYPE: IR cvc insert >=5 years Intraoperative/procedural fluoroscopic services were provid ed. CLINICAL INDICATION:Male, 63 years old with history of CHEMO/FLUID; , [facility] Total fluoroscopy time is 1.3 min. DAP: 1.3 Gycm2 Please see the operative/procedural note for further details.
--- NOTE | 2023-05-21 09:18 | P.PN ---
Subjective Progress Note Date: 05/20/23 This is a 30-year-old male who comes in with complaints of hemoptysis. Patient had chest CT showing progression of meta static lymph nodes in the neck chest and upper abdomen. There is also concern for bronchial invasion and with a right upper lobe infiltrate. He was admitted to the hospital with a consult placed to hematology with plans to undergo induction chemotherapy and radiation. Patient will have brain MRI completed today. He also reports not having a bowel movement. Blood work today shows white count 8.21, hemoglobin 7.8, sodium 134, BUN 7.1, creatinine 0.8. Review of Systems Constitutional: Denied any fatigue denied any fever. Cardio vascular: denied any chest pain, palpitations Gastrointestinal: denied any nausea, vomiting, diarrhea Pulmonary: Denied any shortness of breath cough Neurologic denied any new focal deficits All inpatient medications were reviewed and appropriate changes in these medications as dictated in the interval history and assessment and plan. PHYSICAL EXAMINATION: GENERAL: The patient is alert and oriented x3, not in any acute distress. Well developed, well nourished. HEENT: Pupils are round and equally reacting to light. EOMI. No scleral icterus. No conjunctival pallor. Normocephalic, atraumatic. No pharyngeal erythema. No thyromegaly. CARDIOVASCULAR: S1 and S2 present. No murmurs, rubs, or gallops. PULMONARY: Chest is clear to auscultation, no wheezing or crackles. ABDOMEN: Soft, nontender, nondistended, normoactive bowel sounds. No palpable organomegaly. MUSCULOSKELETAL: No joint swelling or deformity. EXTREMITIES: No cyanosis, clubbing, or pedal edema. NEUROLOGICAL: Gross neurological examination did not reveal any focal deficits. SKIN: No rashes. Assessment and Plan -A. fib with RVR maintained on metoprolol with improvement in heart rate down to the 90s. Continue on metoprolol. 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 Patient to undergo brain MRI. Oncology considering starting chemo and radiation this admission. -Altered mental status felt to be due to a brain metastasis -Acute exacerbation of obstructive lung disease on 2L of oxygen adequate saturations. -Acute right lung pulmonary embolism with bilateral lower extremity Doppler negative for DVT felt to be because of the malignancy and also warfarin being on hold due to the hemoptysis patient is now on an IV heparin drip for this -chronic hypoxic respiratory failure -Chronic atrial fibrillation -Mechanical aortic valve -Coronary artery disease with prior CABG -Chronic congestive heart failure with reduced ejection fraction of 35% -Chronic cancer related pain GI prophlyaxis DVT prophylaxis: Full Code The impression and plan of care has been dictated by Ysabel Guillen, Nurse Practitioner as directed. Dr. Jarvis MD I have performed a history and physical examination and medical decision making of this patient, discussed the same with the dictator, and agree with the dictators assessment and plan as written, documented as a scribe. Based on total visit time, I have performed more than 50% of this visit. Objective - Vital Signs Vital signs: Vital Signs Temp 98.4 F 05/20/23 12:30 Pulse 97 05/20/23 12:30 Resp 18 05/20/23 12:30 BP 109/66 05/20/23 12:30 Pulse Ox 98 05/20/23 12:30 FiO2 Intake & Output 05/19/23 05/20/23 05/20/23 18:59 06:59 18:59 Intake Total 300 Output Total 550 325 Balance 300 -550 -325 Weight 54.431 kg Intake: Intake, IV Titration 300 Amount Azithromycin 500 mg In 250 Sodium Chloride 0.9% 250 ml @ 250 mls/hr IVPB ONCE STA Rx#:[id number] cefTRIAXone 2 gm In 50 Sodium Chloride 0.9% 50 ml @ 100 mls/hr IVPB Q24HR [facility] Rx#:[id number] Output: Urine 550 325 Other: Voiding Method Urinal Toilet - Labs CBC & Chem 7: 05/20/23 06:00 05/20/23 06:00 Labs: Abnormal Lab Results - Last 24 Hours (Table) 05/19/23 05/20/23 05/20/23 Range/Units 07:41 06:00 06:00 RBC 3.14 L (4.40-5.60) X 10*6/uL Hgb 7.8 L (13.0-17.0) g/dL Hct 25.4 L (39.6-50.0) % MCH 24.8 L (27.0-32.0) pg MCHC 30.7 L (32.0-37.0) g/dL RDW 15.9 H (11.5-14.5) % PT 35.5 H (10.0-12.5) sec INR 3.6 H (<1.2) Sodium (135-145) mmol/L BUN (9.0-27.0) mg/dL BUN/Creatinine Ratio (12.00-20.00) Ratio Total Protein (6.2-8.2) g/dL Albumin (3.8-4.9) g/dL Albumin/Globulin Ratio (1.60-3.17) Ratio Procalcitonin 0.15 H (0.02-0.09) ng/mL 05/20/23 Range/Units 06:00 RBC (4.40-5.60) X 10*6/uL Hgb (13.0-17.0) g/dL Hct (39.6-50.0) % MCH (27.0-32.0) pg MCHC (32.0-37.0) g/dL RDW (11.5-14.5) % PT (10.0-12.5) sec INR (<1.2) Sodium 134 L (135-145) mmol/L BUN 7.1 L (9.0-27.0) mg/dL BUN/Creatinine Ratio 8.88 L (12.00-20.00) Ratio Total Protein 5.9 L (6.2-8.2) g/dL Albumin 3.5 L (3.8-4.9) g/dL Albumin/Globulin Ratio 1.46 L (1.60-3.17) Ratio Procalcitonin (0.02-0.09) ng/mL Assessment and Plan Time with Patient: Less than 30
[2023-05-21] MEDS: polyethylene glycoL 3350 17 GM POWD.PACK PO SCH (11:27)
[2023-05-21] MEDS: ONDANSETRON 16 MG in SODIUM CHLORIDE 0.9% 50 ML IVPB ONE (11:51)
[2023-05-21] MEDS: FAMOTIDINE 20 MG/2 ML VIAL IV ONE (11:51)
[2023-05-21] MEDS: DEXAMETHASONE SOD PHOSPHATE 10 MG/ML 1 ML VIAL IV ONE (11:51)
[2023-05-21] MEDS ORDERED: SODIUM CHLORIDE 0.9% IV ONE (12:00)
[2023-05-21] MEDS ORDERED: PEMETREXED DISODIUM IV ONE (12:00)
--- NOTE | 2023-05-21 12:20 | P.PN ---
Subjective Progress Note Date: 05/21/23 63-year-old male patient with metastatic pulmonary adenocarcinoma and the patient has a bulky tumor in his chest with extensive adenopathy involving the right hilum and the right paratracheal and subcarinal area the largest portions measuring 8 x 86.3 cm in size in the hilar area and 5.6 x 3.5 cm inside the subcarinal and infrahilar area. There is also lymphadenopathy involving the left hilum other smaller lymph nodes within the mediastinum and the patient has small pleural effusion right more than left along with compressive atelectatic changes and pleural-based nodules in the right and extensive groundglass changes in the left upper lobe with numerous nodular densities up to 16 x 13 mm in size. Smaller nodules also seen in the left lung in addition. In summary, the patient disease is metastatic as the patient also has extensive heterogeneous liver concerning for diffuse metastases and a stain is also enlarged and the patient has multiple soft tissue masses/lymphadenopathy in the upper abdomen. 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 The patient was admitted to the hospital on 05/12/2023 for shortness of breath and hemoptysis. His hemoptysis was attributed to his metastatic lung cancer and the patient was taken anticoagulation with warfarin and his INR was supratherapeutic. At that time, his INR was reversed, however, the patient in the going back on warfarin as the patient is a mechanical aortic valve and there is no reasonable alternatives to that and were targeting a titer INR control between 2 and 2.5. He was supposed to follow-up with oncology on outpatient basis. In addition oncology saw him during his hospital stay and thought that the brain lesion was small and there was no need for radiation this point in time. Following his discharge, the patient encounter ongoing hemoptysis which never stopped since his discharge. He came into the hospital for further advice. Total amount of blood was probably in the form of 10 mL overnight mixed with mucus. No blood clots. No worsening shortness of breath. His chronically dyspneic and is also having hypoxic respiratory failure maintained on oxygen. He has atrial fibrillation, coronary artery disease, and previous aortic valve replacement with a mechanical valve. I did see the patient during his last hospital stay and the patient was thought to be clinically stable for discharge to be followed up by oncology. Final decision on treatment for his lung cancer has not been made as the patient is awaiting PDL 1 and NGS analysis prior to quitting for any further treatment. He was supposed to be seen by medical oncology early next week. For now, the patient's echoes at 8.5, hemoglobin is 8.2 which is stable since his discharge. INR is at 2.7 with a PT of 27. BUN is a 50 with a creatinine of 1.01 and sodium level is 128. His oxygenation is stable at 3 L with a pulse ox of 99%. Computed tomography scan of the chest was again ordered The patient is seen today 05/20/2023 in follow-up on the regular medical floor. He is awake and alert in no acute distress. He denies any further hemoptysis. He has some right-sided chest discomfort on inhalation. Computed tomography scan of the chest from last evening shows overall significant progression of metastatic disease with extensive soft tissue metastasis/nodes in the neck and chest showing appreciable increase in size. There is worsening, lumbar me diastinal and hilar soft tissue masses/adenopathy resultant slightly worsened narrowing of branches of the right pulmonary artery and bronchi in the right hilum. New pulmonary emboli in the right lower lobe artery, segmental and sent segmental branches. Interval worsening of opacity in the right upper lobe, concerning for spread of tumor with possible superimposed pneumonitis. This obscures some the lung nodules evident before. There are also enlarging nodules in the superior segment of the right lower lobe. Small bilateral pleural effusions. Improved groundglass opacities and multiple nodules in the left lung, with residual nodularity. Worsening extensive upper abdominal metastatic disease, with significant enlargement of metastasis/nodes as above. Doppler of the lower extremity was negative for DVT. MRI of the brain reveals a 1.4 cm ring enhancing lesion with some mild vasogenic edema adjacent right frontal lobe. Suspicious for metastatic lesion. White count 8.2. Hemoglobin 7.8. INR 3.6. Sodium 134. Potassium 4.3. Bicarb 23. BUN 7. Creatinine 0.8. Glucose 99. He remains on DuoNeb inhalations, Symbicort antibiotics in the form of ceftriaxone. He is continued on Decadron 4 mg IVP every 6 hours. The patient is seen today May 21, 2023 and follow-up on the regular medical floor. He is sitting up in a chair at the bedside. Awake and alert in no acute distress. Denies any worsening shortness of breath, cough or congestion. No hemoptysis. He remains on DuoNeb ventilations, Symbicort, Decadron. Antibiotics in the form of ceftriaxone. INR 1.1. The plan is for PICC line placement and to be initiated on carboplatin today. He remains on a heparin dr ip. Objective - Vital Signs Vital signs: Vital Signs Temp 97.7 F 05/21/23 11:55 Pulse 111 H 05/21/23 12:07 Resp 24 05/21/23 11:55 BP 131/82 05/21/23 11:55 Pulse Ox 100 05/21/23 12:01 FiO2 Intake & Output 05/20/23 05/21/23 05/21/23 18:59 06:59 18:59 Intake Total 64.607 76.423 Output Total 325 1700 500 Balance -325 -1635.393 -423.577 Weight 75.296 kg Intake: Intake, IV Titration 64.607 76.423 Amount Heparin Sod,Pork in 0.45% 64.607 76.423 NaCl 25,000 unit In 0.45 % NaCl 1 250ml.bag @ 12 UNITS/KG/HR 9.036 mls/hr IV .Q24H [facility] Rx#: [id number] Output: Urine 325 1700 500 Other: Voiding Method Toilet Toilet Urinal # Voids 2 - Exam GENERAL EXAM: Alert, pleasant 63-year-old male, on 2 L nasal cannula, in no apparent distress. HEAD: Normocephalic. EYES: Normal reaction of pupils, equal size. NOSE: Clear with pink turbinates. THROAT: No erythema or exudates. NECK: No masses, no JVD. CHEST: No chest wall deformity. LUNGS: Equal air entry with few bilateral scattered rhonchi,. CVS: S1 and S2 normal with no audible murmur, irregular rhythm. ABDOMEN: No hepatosplenomegaly, normal bowel sounds, no guarding or rigidity. SPINE: No scoliosis or deformity SKIN: No rashes CENTRAL NERVOUS SYSTEM: No focal deficits, tone is normal in all 4 extremities. EXTREMITIES: There is no peripheral edema. No clubbing, no cyanosis. Peripheral pulses are intact. - Labs CBC & Chem 7: 05/20/23 06:00 05/20/23 06:00 Labs: Abnormal Lab Results - Last 24 Hours (Table) 05/20/23 05/21/23 05/21/23 Range/Units 15:56 00:48 00:48 PT 16.8 H 12.8 H (10.0-12.5) sec INR 1.6 H 1.2 H (<1.2) APTT 32.1 H (22.0-30.0) sec 05/21/23 Range/Units 06:32 PT (10.0-12.5) sec INR (<1.2) APTT 42.1 H (22.0-30.0) sec Microbiology - Last 24 Hours (Table) 05/19/23 08:55 Blood Culture - Preliminary Blood 05/19/23 08:40 Blood Culture - Preliminary Blood Assessment and Plan Assessment: Episodic hemoptysis due to his underlying lung cancer probably invading the right upper lobe bronchus which probably is the source of bleed in addition to intake of anticoagulation with warfarin. INR down to 1.1. No signs of any massive hemoptysis and the patient is able to cough out some bloody mucus. No blood clots. No interval worsening in the overall respiratory status as his last discharge. Metastatic adenocarcinoma of the lung and diagnosis was made by biopsy of the exiting mass and intestinal mass. The patient has [employer] B[employer]KE O[employer] metastases. The patient has extensive mediastinal and the right hilar soft tissue masses and the lymphadenopathy consistent with metastatic disease. Patient also has enlarged right axillary lymph node and small bilateral pleural effusions and multiple bilateral pulmonary nodules and areas of groundglass opacity suggestive of metastases. Noted the right hilar mass surrounding the narrowed the bedside the pulmonary artery pressure was in the right upper lobe. Patient also has extensive upper abdominal metastases or in the liver and spleen. There is also evidence of brain metastases. Patient has not started any treatment under the care of medical oncology. Follow-up computed tomography scan of the chest from 05/19/2023 shows overall significant progression of metastatic disease with extensive soft tissue metastasis/nodes in the neck and chest showing appreciable increase in size. There is worsening, lumbar mediastinal and hilar soft tissue masses/adenopathy resultant slightly worsened narrowing of branches of the right pulmonary artery and bronchi in the right hilum. New pulmonary emboli in the right lower lobe artery, segmental and sent segmental branches. Interval worsening of opacity in the right upper lobe, concerning for spread of tumor with possible superimposed pneumonitis. This obscures some the lung nodules evident before. There are also enlarging nodules in the superior segment of the right lower lobe. Small bilateral pleural effusions. Improved groundglass opacities and multiple nodules in the left lung, with residual nodularity. Worsening extensive upper abdominal metastatic disease, with significant enlargement of metastasis/nodes as above. Acute hemoptysis secondary to lung cancer and coagulopathy from warfarin use, source being most likely the right lung base and the CAT scan findings, currently inactive and stable Brain metastases with a left occipital lobe peripherally enhancing lesion suspicious for metastases and hemosiderin the position suggestive of prior hemorrhage. No evidence of any acute or subacute infarction based on MRI of the brain that was done on 04/26/2023. The patient was seen by radiation oncology. MRI of the brain today 05/20/2023 revealed a 1.4 cm ring-enhancing lesion was some mild vasogenic edema adjacent right frontal lobe. Suspicious for me tastatic lesion. Chronic atrial fibrillation, maintained on warfarin Mechanical aortic valve placed in 2019, maintained on warfarin, history of bicuspid aortic valve Coronary artery disease bypass surgery, mild nonobstructive CAD current cardiac catheterization from [facility] 2019 CHF with an underlying impaired systolic heart failure with an ejection fraction of 35-40% Hypertension Hyperlipidemia Psoriasis Previous history of traumatic brain injury Anemia of chronic disease, hemoglobin is stable since his last discharge Plan: The patient was seen and evaluated Medications and labs reviewed PICC line placed To start carboplatin today Remains on Decadron Remains on a heparin drip Titrate the FiO2 as tolerated We will continue to follow I have personally seen and examined the patient, performed the documentation and the assessment and plan as written. Number of minutes spent on the visit: 10.
[2023-05-21] MEDS ORDERED: CARBOplatin 500 MG in SODIUM CHLORIDE 0.9% 250 ML IV ONE (13:00)
--- NOTE | 2023-05-21 13:58 | P.PN ---
Subjective Progress Note Date: 05/21/23 This is a 30-year-old male who comes in with complaints of hemoptysis. Patient had chest CT showing progression of meta static lymph nodes in the neck chest and upper abdomen. There is also concern for bronchial invasion and with a right upper lobe infiltrate. He was admitted to the hospital with a consult placed to hematology with plans to undergo induction chemotherapy and radiation. Patient will have brain MRI completed today. He also reports not having a bowel movement. Blood work today shows white count 8.21, hemoglobin 7.8, sodium 134, BUN 7.1, creatinine 0.8. 05/21/2023 Patient is monitored to the medical floor he is being followed closely by oncology with plans for induction chemotherapy today. Not yet had a bowel movement but had not received MiraLAX we will try that first before giving an enema or stronger laxative. Abdomen is softer today and he does have positive normoactive bowel sounds throughout. Patient had a PICC line inserted today. Brain MRI shows a 1.4 cm ring-enhancing lesion with some mild vasogenic edema adjacent to the right frontal lobe findings are concerning for metastatic lesion he has been started on IV dexamethasone by oncology. Recommendations were made to hold warfarin at this time and INR was reversed patient was given the 5 mg dose of vitamin K. His INR today is 1.1 and he has been initiated on an IV heparin drip at this time. Review of Systems Constitutional: Denied any fatigue denied any fever. Cardio vascular: denied any chest pain, palpitations Gastrointestinal: denied any nausea, vomiting, diarrhea Pulmonary: Denied any shortness of breath cough Neurologic denied any new focal deficits All inpatient medications were reviewed and appropriate changes in these medications as dictated in the interval history and assessment and plan. PHYSICAL EXAMINATION: GENERAL: The patient is alert and oriented x3, not in any acute distress. Well developed, well nourished. HEENT: Pupils are round and equally reacting to light. EOMI. No scleral icterus. No conjunctival pallor. Normocephalic, atraumatic. No pharyngeal erythema. No th yromegaly. CARDIOVASCULAR: S1 and S2 present. No murmurs, rubs, or gallops. PULMONARY: Chest is clear to auscultation, no wheezing or crackles. ABDOMEN: Soft, nontender, nondistended, normoactive bowel sounds. No palpable organomegaly. MUSCULOSKELETAL: No joint swelling or deformity. EXTREMITIES: No cyanosis, clubbing, or pedal edema. NEUROLOGICAL: Gross neurological examination did not reveal any focal deficits. SKIN: No rashes. Assessment and Plan -A. fib with RVR maintained on metoprolol with improvement in heart rate down to the 90s. Continue on metoprolol. 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 Patient scheduled to undergo chemotherapy induction today. -Altered mental status felt to be due to a brain metastasis -Acute exacerbation of obstructive lung disease on 2L of oxygen adequate saturations. -Acute right lung pulmonary embolism with bilateral lower extremity Doppler negative for DVT felt to be because of the malignancy and also warfarin being on hold due to the hemoptysis patient is now on an IV heparin drip for this -chronic hypoxic respiratory failure -Chronic atrial fibrillation -Mechanical aortic valve -Coronary artery disease with prior CABG -Chronic congestive heart failure with reduced ejection fraction of 35% -Chronic cancer related pain GI prophlyaxis DVT prophylaxis: Full Code The impression and plan of care has been dictated by Ysabel Guillen, Nurse Practitioner as directed. Dr. Jarvis MD I have performed a history and physical examination and medical decision making of this patient, discussed the same with the dictator, and agree with the dictators assessment and plan as written, documented as a scribe. Based on total visit time, I have performed more than 50% of this visit. Objective - Vital Signs Vital signs: Vital Signs Temp 97.0 F L 05/21/23 07:21 Pulse 93 05/21/23 11:59 Resp 20 05/21/23 07:21 BP 103/73 05/21/23 07:21 Pulse Ox 100 05/21/23 12:01 FiO2 Intake & Output 05/20/23 05/21/23 05/21/23 18:59 06:59 18:59 Intake Total 64.607 76.423 Output Total 325 1700 500 Balance -325 -1635.393 -423.577 Weight 75.296 kg Intake: Intake, IV Titration 64.607 76.423 Amount Heparin Sod,Pork in 0.45% 64.607 76.423 NaCl 25,000 unit In 0.45 % NaCl 1 250ml.bag @ 12 UNITS/KG/HR 9.036 mls/hr IV .Q24H [facility] Rx#: [id number] Output: Urine 325 1700 500 Other: Voiding Method Toilet Toilet Urinal # Voids 2 - Labs CBC & Chem 7: 05/20/23 06:00 05/20/23 06:00 Labs: Abnormal Lab Results - Last 24 Hours (Table) 05/20/23 05/21/23 05/21/23 Range/Units 15:56 00:48 00:48 PT 16.8 H 12.8 H (10.0-12.5) sec INR 1.6 H 1.2 H (<1.2) APTT 32.1 H (22.0-30.0) sec 05/21/23 Range/Units 06:32 PT (10.0-12.5) sec INR (<1.2) APTT 42.1 H (22.0-30.0) sec Microbiology - Last 24 Hours (Table) 05/19/23 08:55 Blood Culture - Preliminary Blood 05/19/23 08:40 Blood Culture - Preliminary Blood Assessment and Plan Time with Patient: Less than 30
[2023-05-21] MEDS: SODIUM CHLORIDE 0.9% IV ONE (14:32)
[2023-05-21] MEDS: CARBOPLATIN IV ONE (14:32)
--- NOTE | 2023-05-21 14:51 | P.PN ---
Subjective Progress Note Date: 05/21/23 Consult reason: atrial fibrillation History of present illness: History of present illness: This is a 63-year-old male patient of Dr. Venegas with past medical history of cardiomyopathy with known EF of 35%, [place] mechanical aortic valve performed 09/30/2019 at [facility] for bicuspid aortic valve with goal of INR 23 for atrial fibrillation, valve goal 1.52, ascending aortic aneurysm status post hemiarch repair, persistent atrial fibrillation status post MARY JO and cardioversion March 2023 which was initially successful with relapse after c olonoscopy, currently in atrial fibrillation rate controlled strategy, mild nonobstructive coronary artery disease, hypertension, dyslipidemia, psoriasis, lung cancer stage IV with metastatic disease to the duodenum, soft tissue nodules of the abdomen, adrenal glands and possibly brain, chronic hypoxic respiratory failure on home O2. We have been asked to evaluate the patient for A-fib with RVR. Patient presented to the hospital due to persistent hemoptysis. Patient complains of low right lateral rib pain and shortness of breath. He is on home oxygen therapy as well. Patient is scheduled for MRI of the brain today which has been ordered by oncology. Telemetry is atrial fibrillation heart rate about 116. Patient is complaining of severe sciatic pain. EKG atrial fibrillation at 126 bpm Chest x-ray: No change and right hilar mass adenopathy. Interval development of partially consolidative opacity in the right upper lobe. CAT scan of the chest revealed significant progression of metastatic disease. New pulmonary emboli in the right lower lobe artery. WBC 8.2, hemoglobin 7.8, platelet count 270. INR 3.6. Sodium 134, potassium 4.3, BUN 7, creatinine 0.8. Home cardiac medications: Aspirin 81 mg daily, Lasix 40 mg daily, Lopressor 50 mg twice daily, warfarin 7.5 mg daily 05/21 Patient [place] [id number]. Yesterday, metoprolol tartrate frequency was increased to 3 times daily at 50 mg daily. Blood no thanks pressure 131/82, pulse ox 1% on 2 L nasal cannula. INR is 1.1. Patient remains on heparin drip, pharmacy is dosing Coumadin. Patient is s/p insertion by vascular surgery for carboplatin to start today. Physical examination: Gen: This is a thin 63-year-old male. He is sitting up in a chair and appears to be in no acute distress. VS: reviewed HEENT: Head is atraumatic, normocephalic. Pupils equal, round. Sclerae is anicteric. NECK: Supple. No JVD. LUNGS: Bilateral scattered rhonchi. No intercostal retractions. HEART: Irregular rate and rhythm. No murmur. Sawyer second heart sound ABDOMEN: Soft No tenderness. EXTREMITIES: No pedal edema. No calf tenderness. NEUROLOGICAL: Patient is awake, alert and oriented x3. Assessment: Persistent atrial fibrillation with RVR, uncontrolled Cardiomyopathy with known EF 35% History of On-X aortic mechanical valve for bicuspid aortic valve Ascending aortic aneurysm s/p hemiarch repair Mild nonobstructive coronary artery disease on cardiac catheterization 2020 Hypertension Dyslipidemia Hemoptysis New pulmonary emboli in the right lower lobe artery, segmental and subsegmental branches Opacity in the right upper lobe concerning for tumor spread versus pneumonia Adenocarcinoma of the lung with extensive metastatic disease Plan: Continue patient's home cardiac medications Continue metoprolol tartrate 50 mg 3 times daily Continue Coumadin, pharmacy to dose Further recommendations to follow based upon clinical course Nurse practitioner note has been reviewed, I agree with documented findings and plan of care. Patient was seen and examined. Objective - Vital Signs Vital signs: Vital Signs Temp 97.7 F 05/21/23 11:55 Pulse 111 H 05/21/23 12:07 Resp 24 05/21/23 11:55 BP 131/82 05/21/23 11:55 Pulse Ox 100 05/21/23 12:01 FiO2 Intake & Output 05/20/23 05/21/23 05/21/23 18:59 06:59 18:59 Intake Total 64.607 76.423 Output Total 325 1700 500 Balance -325 -1635.393 -423.577 Weight 75.296 kg 76.4 kg Intake: Intake, IV Titration 64.607 76.423 Amount Heparin Sod,Pork in 0.45% 64.607 76.423 NaCl 25,000 unit In 0.45 % NaCl 1 250ml.bag @ 12 UNITS/KG/HR 9.036 mls/hr IV .Q24H [facility] Rx#: [id number] Output: Urine 325 1700 500 Other: Voiding Method Toilet Toilet Urinal # Voids 2 - Labs CBC & Chem 7: 05/20/23 06:00 05/20/23 06:00 Labs: Abnormal Lab Results - Last 24 Hours (Table) 05/20/23 05/21/23 05/21/23 Range/Units 15:56 00:48 00:48 PT 16.8 H 12.8 H (10.0-12.5) sec INR 1.6 H 1.2 H (<1.2) APTT 32.1 H (22.0-30.0) sec 05/21/23 Range/Units 06:32 PT (10.0-12.5) sec INR (<1.2) APTT 42.1 H (22.0-30.0) sec Microbiology - Last 24 Hours (Table) 05/19/23 08:55 Blood Culture - Preliminary Blood 05/19/23 08:40 Blood Culture - Preliminary Blood
--- NOTE | 2023-05-21 15:14 | P.PN ---
Subjective Progress Note Date: 05/21/23 Principal diagnosis: Hemoptysis, lung adenocarcinoma In f/u today pt is very emotional. He was up to the restroom and now has sciatic pain is really intensified. She knows of plan is to start chemotherapy today, he is in agreement with the same. He had his PICC line placed last night, he denies any unusual swelling or pain in the left arm. No fevers. He is tolerating oral intake and still ambulatory. No overt neurological complaints from the patient. Objective - Vital Signs Vital signs: Vital Signs Temp 97.7 F 05/21/23 11:55 Pulse 111 H 05/21/23 12:07 Resp 24 05/21/23 11:55 BP 131/82 05/21/23 11:55 Pulse Ox 100 05/21/23 12:01 FiO2 Intake & Output 05/20/23 05/21/23 05/21/23 18:59 06:59 18:59 Intake Total 64.607 76.423 Output Total 325 1700 500 Balance -325 -1635.393 -423.577 Weight 75.296 kg 76.4 kg Intake: Intake, IV Titration 64.607 76.423 Amount Heparin Sod,Pork in 0.45% 64.607 76.423 NaCl 25,000 unit In 0.45 % NaCl 1 250ml.bag @ 12 UNITS/KG/HR 9.036 mls/hr IV .Q24H [facility] Rx#: [id number] Output: Urine 325 1700 500 Other: Voiding Method Toilet Toilet Urinal # Voids 2 - Constitutional General appearance: Present: average body habitus, cooperative, mild distress - EENT Eyes: Present: anicteric sclerae, EOMI ENT: Present: hearing grossly normal - Respiratory Respiratory: bilateral: CTA - Cardiovascular Heart sounds: normal: S1, S2 - Peripheral edema leg Peripheral Edema: bilateral: None - Gastrointestinal General gastrointestinal: Present: normal bowel sounds, soft - Integumentary Integumentary: Present: normal - Neurologic Neurologic: Present: CNII-XII intact (Grossly) - Musculoskeletal Musculoskeletal: Present: strength equal bilaterally - Psychiatric Psychiatric Comment(s): Tearful Psychiatric: Present: A&O x's 3, intact judgment & insight - Labs CBC & Chem 7: 05/20/23 06:00 05/20/23 06:00 Labs: Abnormal Lab Results - Last 24 Hours (Table) 05/20/23 05/21/23 05/21/23 Range/Units 15:56 00:48 00:48 PT 16.8 H 12.8 H (10.0-12.5) sec INR 1.6 H 1.2 H (<1.2) APTT 32.1 H (22.0-30.0) sec 05/21/23 Range/Units 06:32 PT (10.0-12.5) sec INR (<1.2) APTT 42.1 H (22.0-30.0) sec Microbiology - Last 24 Hours (Table) 05/19/23 08:55 Blood Culture - Preliminary Blood 05/19/23 08:40 Blood Culture - Preliminary Blood - Imaging and Cardiology MRI - head: report reviewed Venous US: report reviewed Assessment and Plan (1) Hemoptysis Current Visit: Yes Status: Acute Priority: High Code(s): R04.2 - HEMOPTYSIS SNOMED Code(s): 09785330 (2) Pulmonary embolism Current Visit: Yes Status: Acute Priority: High Code(s): I26.99 - OTHER PULMONARY EMBOLISM WITHOUT ACUTE COR PULMONALE SNOMED Code(s): 66516536 (3) Metastatic non-small cell lung cancer Current Visit: Yes Status: Acute Code(s): C34.90 - MALIGNANT NEOPLASM OF UNSP PART OF UNSP BRONCHUS OR LUNG SNOMED Code(s): 732539404 (4) Supratherapeutic INR Current Visit: Yes Status: Resolved Priority: High Code(s): R79.1 - ABNORMAL COAGULATION PROFILE SNOMED Code(s): 633470651 Plan: PE -New Rt lung PE, BLE doppler for baseline-neg for DVT -[place] to be provoked 2/2 malignancy, recent multiple hospitalizations and holding of coumadin last week because of hemoptysis. -Plan is to reverse INR then start a heparin drip while inpt when INR is <2 -Duration of anticoagulation for a provoked PE is irrelevant. The patient has an artificial heart valve and he needs to be on full dose anticoagulation indefinitely. Artificial heart valve -Patient previously on Coumadin. INR regulation is challenging due to changes in oral intake, malignancy in the GI tract. -Coumadin reversed. Low intensity heparin drip started -Pending Cardiology assessment. Asking for recommendations for alternative an ticoagulation to coumadin (lovenox?) AMS -Repeat MRI brain-mood and behavioral changes-showing several lesions and vasogenic edema. Dexamethasone IV ordered. PPI BID. -Discussed case with Radiation Oncologist. Plan is to treat with a short course of radiation but, going to wait on this until patient has systemic treatment. We'll plan for follow-up on discharge. Hemoptysis -Resolved -Coumadin held. Low intensity heparin drip ordered. -Pending Cardiology recs if lovenox can be used Non-small cell adenocarcinoma, non-squamous, metastatic disease, rapid progression -Pt 1st presented on 04/18 and has since been inpt 2 additional times in the last 3 weeks. He has been unable to stay out of the hospital long enough to start treatment. MRI brain is showing 1.4 cm ring enhancing lesion. CT chest is reporting significant progression of disease in just 3 weeks. NCCN guideline category 1 recommendation treatment has been ordered and is going to initiated inpt. -Chemotherapy orders reviewed today. Dose adjustments made based on BSA -Supportive medications ordered -Labs ordered Pain and anxiety from diagnosis -Pt reports adequate pain control on current analgesic regimen most of the time. -Medications for prevention of narcotic-induced constipation ordered
[2023-05-21] MEDS ORDERED: ONDANSETRON 4 MG/2 ML VIAL IVP PRN (15:18)
[2023-05-21] MEDS: SALT AND SODA MOUTHWASH 1,000 ML PO SCH (17:17)
[2023-05-21] MEDS ORDERED: BACLOFEN 10 MG TAB PO PRN (19:01)
[2023-05-21] MEDS: HALOPERIDOL LACTATE 5 MG/ML 1 ML VIAL IM STA (19:09)
[2023-05-21] MEDS: QUEtiapine 25 MG TAB PO SCH (20:11)
[2023-05-21] MEDS: SENNOSIDES-DOCUSATE SODIUM 1 EACH TAB PO SCH (22:23)
[2023-05-21] MEDS: DEXAMETHASONE SOD PHOSPHATE 4 MG/ML 1 ML VIAL IVP SCH (23:22)
[2023-05-22] MEDS: HALOPERIDOL LACTATE 5 MG/ML 1 ML VIAL IM STA (03:36)
[2023-05-22 07:06] LABS: INR 1.2 (<1.2); Prothrombin Time 12.7 sec (10.0-12.5)
--- NOTE | 2023-05-22 11:06 | CDI ---
Documentation Clarification Form Date: 05/22/2023 10:58:24 AM From: Jaja Gan RN, CCDS Phone: [phone] Admit Date: 05/19/2023 08:17:00 AM Patient Name: Jaime Raza Visit Number: [id number] Discharge Date: ATTENTION: The Clinical Documentation Specialists (CDI) and [facility] Coding Staff appreciate your assistance in clarifying documentation. Please respond to the clarification below the line at the bottom and electronically sign. The CDI & [facility] Coding staff will review the response and follow-up if needed. Please note: Queries are made part of the Legal Health Record. If you have any questions, please contact the author of this message via ITS. Dr. Cher Nicole Your patient has documentation of vasogenic edema in the progress notes and on the MRI 05/20/23. Based on this information and the findings below, is there an additional diagnosis that is clinically appropriate for this patient? Patient history/risk factors: Atrial Fibrillation, Coronary Artery Disease, Heart Failure, Hyperlipidemia, Hypertension, diagnosed with lung cancer 03/2023 lung adenocarcinoma Clinical Indicators: 63-year-old male with complaints of hemoptysis. Over the past 2 weeks, he has had progressive confusion, visual hallucinations along with episodes of unusual behavior of him losing his temper. 05/19 VS 114/85 124 20 97.6 100% 3/L NC 05/19 Labs wbc 8.5 hgb 8.2 hct 25.0, INR 2.7 Chest x-ray: early consolidative opacity in the right upper lobe CT/MRI: 1.4 cm ring-enhancing lesion with some mild vasogenic edema adjacent frontal lobe. Finding is suspicious for metastatic lesion. Couple punctate hyperintensities identified on diffusion could be additional areas of gliosis or ischemic type changes. 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 [ ] Cerebral edema [ ] Vasogenic Cerebral edema [ ] Cytotoxic Cerebral edema [ X ] Other cerebral edema, please specify type Vasogenic edema secondary to brain metastases from metastatic lung adenocarcinoma [ ] Other, please specify [ ] Unable to determine (Last Revision: January 2022) MTDD
[2023-05-22 11:21] LABS: BUN/Creat Ratio 17.43 Ratio (12.00-20.00); Blood Urea Nitrogen 12.2 mg/dL (9.0-27.0); Calcium 9.1 mg/dL (8.7-10.3); Carbon Dioxide 21.4 mmol/L (21.6-31.8); Chloride 107 mmol/L (96-109); Glucose 124 mg/dL (70-110); Potassium 4.3 mmol/L (3.5-5.5); Sodium 139 mmol/L (135-145)
[2023-05-22 11:37] LABS: Acanthocytes 2+; Basophils # (A) 0.01 X 10*3/uL (0.00-0.10); Basophils % (A) 0.1 %; Eosinophils # (A) 0 X 10*3/uL (0.04-0.35); Eosinophils % (A) 0 %; HCT 22.2 % (39.6-50.0); HGB 6.4 g/dL (13.0-17.0); Hypochromasia (M) 2+; Lymphocytes # (A) 0.45 X 10*3/uL (0.90-5.00); Lymphocytes % (A) 5.4 %; MCH 24.6 pg (27.0-32.0); MCHC 28.8 g/dL (32.0-37.0); MCV 85.4 FL (80.0-97.0); Mean Platelet Volume 11.2 FL (9.5-12.2); Microcytosis (M) 2+; Monocytes # (A) 0.55 X 10*3/uL (0.20-1.00); Monocytes % (A) 6.5 %; NRBC Per 100 WBC 0 X 10*3/uL (0.00-0.01); Neutrophils # (A) 7.34 X 10*3/uL (1.80-7.70); Neutrophils % (A) 87.3 %; Platelet Count 298 X 10*3/uL (140-440); RDW 16.1 % (11.5-14.5); WBC 8.41 X 10*3/uL (4.50-10.00)
--- NOTE | 2023-05-22 11:56 | P.CONS ---
History of Present Illness - Reason for Consult Consult date: 05/21/23 Brain metastasis Requesting physician: Cher Nicole - Chief Complaint "I am eager to start treatment" - History of Present Illness Mr. Raza is a 63-year-old male with a newly diagnosed metastatic pulmonary adenocarcinoma with a right frontal brain metastasis. The patient is known to me as I saw him last week during a previous hospitalization. At that time, an MRI brain in 03/2023 had demonstrated an equivocal focus in the left occipital region and the recommendation was for close follow-up with repeat MRI brain. The patient now presents with generalized pain and recurrent hemoptysis. CT chest on 05/19/2023 demonstrated progressive metastases along with pulmonary emboli. Venous duplex of the lower extremities was negative. MRI brain on 05/20/2023 demonstrated a 1.4 cm enhancing lesion in the right frontal lobe. There was no enhancement at the left occipital lesion. Today, he notes he is doing okay but is eager to start treatment. He had PICC placed and the plan is to start inpatient chemotherapy today in light of his recurrent hospitalizations. He denies headaches. He denies new neurological deficits. Review of Systems as per HPI Past Medical History Past Medical History: Atrial Fibrillation, Coronary Artery Disease (CAD), Cancer, Heart Failure, Hyperlipidemia, Hypertension, Skin Disorder Additional Past Medical History / Comment(s): chronic lower back pain w/ Lt. sciatica, TBI, hiatal hernia, cardiomyopathy, psoriasis, CHF - had a recent script for Jardiance and states, "I'm not taking it, I saw it on t.v, all the side effects." diagnosed with lung cancer 03/2023 History of Any Multi-Drug Resistant Organisms: None Reported Past Surgical History: Cardiac Valve Replacement, Coronary Bypass/CABG Additional Past Surgical History / Comment(s): Rt. knee arthroscopy, jaw/facial reconstruction, aortic valve replacement w/ on-x mechanical valve & aortic root repair 2019 Past Anesthesia/Blood Transfusion Reactions: No Reported Reaction Past Psychological History: Anxiety, PTSD Additional Psychological History / Comment(s): describes worsening anxiety recently w/ health issues and bills, PTSD from - also recently stopped xanax, stopped drinking January 2023 Smoking Status: Former smoker Past Alcohol Use History: None Reported Additional Past Alcohol Use History / Comment(s): Per patient and his , has not had a drink since Feb 2023 Past Drug Use History: None Reported Additional Drug Use History / Comment(s): Denies current Mariuana use. Quit Feb 2023. - Past Family History Mother Family Medical History: No Reported History Father Additional Family Medical History / Comment(s): Passed when patient was a child possibly related to heart disease. Medications and Allergies Home Medications Medication Instructions Recorded Confirmed Type Aspirin [Children's Aspirin] 81 mg PO DAILY@0800 11/11/22 05/19/23 History Albuterol Inhaler [Ventolin Hfa 2 puff INHALATION RT-Q6H PRN 01/29/23 05/19/23 History Inhaler] Baclofen 5 mg PO BID@0800,1300 05/11/23 05/19/23 History Furosemide [Lasix] 40 mg PO DAILY@0800 05/11/23 05/19/23 History Metoprolol Tartrate [Lopressor] 50 mg PO BID@0800,199905/11/23 05/19/23 History Pantoprazole [Protonix] 40 mg PO DAILY@0800 05/11/23 05/19/23 History Prochlorperazine [Compazine] 10 mg PO DAILY@0800 05/11/23 05/19/23 History Warfarin [Coumadin] 7.5 mg PO DAILY@199905/11/23 05/19/23 History fentaNYL 25MCG/HR PATCH [Duragesic 1 patch TOPICAL Q72H 05/11/23 05/19/23 History 25MCG/HR] Budesonide-Formot 160-4.5 Mcg 2 puff INHALATION RT-BID 30 Days 05/15/23 05/19/23 Rx [Symbicort 160-4.5 Mcg Inhaler] #1 each Folic Acid 1 mg PO DAILY 30 Days #30 tab 05/15/23 05/19/23 Rx HYDROcodone/APAP 10-325MG [[place] 1 tab PO Q4HR PRN 05/19/23 05/19/23 History 10-325] oxyCODONE HCL [oxyCODONE HCL (IR)] 5 mg PO Q6H PRN 05/19/23 05/19/23 History Allergies Allergy/AdvReac Type Severity Reaction Status Date / Time acetaminophen Allergy Rash/Hives Verified 05/19/23 11:20 [From Darvocet-N 100] propoxyphene Allergy Rash/Hives Verified 05/19/23 11:20 [From Darvocet-N 100] amitriptyline [From Elavil] AdvReac NIGHTMARES Verified 05/19/23 11:20 hydralazine AdvReac MIGRAINES Verified 05/19/23 11:20 naproxen [From Naprosyn] AdvReac Nausea Verified 05/19/23 11:20 Physical Exam Vitals: Vital Signs Temp Pulse Pulse Resp BP Pulse Ox 05/22/23 08:05 113 H 18 120/70 95 05/22/23 02:00 97.2 F L 97 16 109/70 95 05/21/23 20:00 99 16 131/85 96 05/21/23 18:21 92 05/21/23 16:15 97.3 F L 87 15 126/71 97 05/21/23 15:52 103 H 05/21/23 15:42 98 05/21/23 12:07 111 H 05/21/23 12:01 100 05/21/23 11:59 93 05/21/23 11:55 97.7 F 92 24 131/82 100 Intake and Output 05/21/23 05/22/23 05/22/23 22:59 06:59 14:59 Intake Total 98.560 221.443 73.99 Output Total 0 950 Balance 98.560 221.443 -876.01 Intake: Intake, IV Titration 98.560 221.443 73.99 Amount Heparin Sod,Pork in 0.45% 98.560 221.443 73.99 NaCl 25,000 unit In 0.45 % NaCl 1 250ml.bag @ 12 UNITS/KG/HR 9.036 mls/hr IV .Q24H [facility] Rx#: [id number] Output: Urine 0 950 Straight 950 Other: Voiding Method Urinal # Voids 1 - Constitutional General appearance: average body habitus, no acute distress - Respiratory Respiratory: negative: prolonged expiration, prolonged inspiration - Neurologic no focal deficits Neurologic: CNII-XII intact - Psychiatric Psychiatric: A&O x's 3, appropriate affect, intact judgment & insight Results CBC & Chem 7: 05/22/23 06:08 05/22/23 06:08 Labs: Abnormal Lab Results - Last 24 Hours (Table) 05/21/23 05/21/23 05/22/23 Range/Units 14:59 22:34 06:08 RBC 2.60 L (4.40-5.60) X 10*6/uL Hgb 6.4 A* (13.0-17.0) g/dL Hct 22.2 L (39.6-50.0) % MCH 24.6 L (27.0-32.0) pg MCHC 28.8 L (32.0-37.0) g/dL RDW 16.1 H (11.5-14.5) % Immature Gran # 0.06 H (0.00-0.04) X 10*3/uL Lymphocytes # 0.45 L (0.90-5.00) X 10*3/uL Eosinophils # 0 L (0.04-0.35) X 10*3/uL Hypochromasia (manual) 2+ A Microcytosis (manual) 2+ A Acanthocytes (Spur) 2+ A PT (10.0-12.5) sec INR (<1.2) APTT 37.0 H 31.9 H (22.0-30.0) sec Carbon Dioxide (21.6-31.8) mmol/L Glucose (70-110) mg/dL 05/22/23 05/22/23 05/22/23 Range/Units 06:08 06:08 08:08 RBC (4.40-5.60) X 10*6/uL Hgb (13.0-17.0) g/dL Hct (39.6-50.0) % MCH (27.0-32.0) pg MCHC (32.0-37.0) g/dL RDW (11.5-14.5) % Immature Gran # (0.00-0.04) X 10*3/uL Lymphocytes # (0.90-5.00) X 10*3/uL Eosinophils # (0.04-0.35) X 10*3/uL Hypochromasia (manual) Microcytosis (manual) Acanthocytes (Spur) PT 12.7 H (10.0-12.5) sec INR 1.2 H (<1.2) APTT 96.1 H (22.0-30.0) sec Carbon Dioxide 21.4 L (21.6-31.8) mmol/L Glucose 124 H (70-110) mg/dL Microbiology - Last 24 Hours (Table) 05/19/23 08:55 Blood Culture - Preliminary Blood 05/19/23 08:40 Blood Culture - Preliminary Blood Assessment and Plan Assessment: Mr. Raza is a 63-year-old male with a newly diagnosed metastatic pulmonary adenocarcinoma with a right frontal brain metastasis. Plan: The patient has newly diagnosed metastatic NSCLC with a right frontal metastasis . The left occipital lesion is no longer enhancing peripherally and is not consistent with a metastatic focus. The patient is planned for inpatient chemotherapy, which I am in agreement with. I discussed with Dr. Cher Nicole and we will start him on Decadron though there is not a lot of extralesional edema in the right frontal lobe so I would not expect him to have symptoms from such. Following his first cycle of systemic therapy and upon discharge, we will plan on stereotactic radiosurgery to the right frontal lesion (likely 3 treatments). I explained the above to the patient. He will follow-up with me upon discharge. Keith Chawla MD Radiation Oncology Time with Patient: Less than 30
--- NOTE | 2023-05-22 12:03 | P.PN ---
Subjective Progress Note Date: 05/22/23 63-year-old male patient with metastatic pulmonary adenocarcinoma and the patient has a bulky tumor in his chest with extensive adenopathy involving the right hilum and the right paratracheal and subcarinal area the largest portions measuring 8 x 86.3 cm in size in the hilar area and 5.6 x 3.5 cm inside the subcarinal and infrahilar area. There is also lymphadenopathy involving the left hilum other smaller lymph nodes within the mediastinum and the patient has small pleural effusion right more than left along with compressive atelectatic changes and pleural-based nodules in the right and extensive groundglass changes in the left upper lobe with numerous nodular densities up to 16 x 13 mm in size. Smaller nodules also seen in the left lung in addition. In summary, the patient disease is metastatic as the patient also has extensive heterogeneous liver concerning for diffuse metastases and a stain is also enlarged and the patient has multiple soft tissue masses/lymphadenopathy in the upper abdomen. During his last admission the patient was also found to have a left occipital Enhancing lesion suspicious for MIXOLOGIST metastases. The patient was admitted to the hospital on 05/12/2023 for shortness of breath and hemoptysis. His hemoptysis was attributed to his metastatic lung cancer and the patient was taken anticoagulation with warfarin and his INR was supratherapeutic. At that time, his INR was reversed, however, the patient in the going back on warfarin as the patient is a mechanical aortic valve and there is no reasonable alternatives to that and were targeting a titer INR control between 2 and 2.5. He was supposed to follow-up with oncology on outpatient basis. In addition oncology saw him during his hospital stay and thought that the brain lesion was small and there was no need for radiation this point in time. Following his discharge, the patient encounter ongoing hemoptysis which never stopped since his discharge. He came into the hospital for further advice. Total amount of blood was probably in the form of 10 mL overnight mixed with mucus. No blood clots. No worsening shortness of breath. His chronically dyspneic and is also having hypoxic respiratory failure maintained on oxygen. He has atrial fibrillation, coronary artery disease, and previous aortic valve replacement with a mechanical valve. I did see the patient during his last hospital stay and the patient was thought to be clinically stable for discharge to be followed up by oncology. Final decision on treatment for his lung cancer has not been made as the patient is awaiting PDL 1 and NGS analysis prior to quitting for any further treatment. He was supposed to be seen by medical oncology early next week. For now, the patient's echoes at 8.5, hemoglobin is 8.2 which is stable since his discharge. INR is at 2.7 with a PT of 27. BUN is a 50 with a creatinine of 1.01 and sodium level is 128. His oxygenation is stable at 3 L with a pulse ox of 99%. Computed tomography scan of the chest was again ordered The patient is seen today 05/20/2023 in follow-up on the regular medical floor. He is awake and alert in no acute distress. He denies any further hemoptysis. He has some right-sided chest discomfort on inhalation. Computed tomography scan of the chest from last evening shows overall significant progression of metastatic disease with extensive soft tissue metastasis/nodes in the neck and chest showing appreciable increase in size. There is worsening, lumbar me diastinal and hilar soft tissue masses/adenopathy resultant slightly worsened narrowing of branches of the right pulmonary artery and bronchi in the right hilum. New pulmonary emboli in the right lower lobe artery, segmental and sent segmental branches. Interval worsening of opacity in the right upper lobe, concerning for spread of tumor with possible superimposed pneumonitis. This obscures some the lung nodules evident before. There are also enlarging nodules in the superior segment of the right lower lobe. Small bilateral pleural effusions. Improved groundglass opacities and multiple nodules in the left lung, with residual nodularity. Worsening extensive upper abdominal metastatic disease, with significant enlargement of metastasis/nodes as above. Doppler of the lower extremity was negative for DVT. MRI of the brain reveals a 1.4 cm ring enhancing lesion with some mild vasogenic edema adjacent right frontal lobe. Suspicious for metastatic lesion. White count 8.2. Hemoglobin 7.8. INR 3.6. Sodium 134. Potassium 4.3. Bicarb 23. BUN 7. Creatinine 0.8. Glucose 99. He remains on DuoNeb inhalations, Symbicort antibiotics in the form of ceftriaxone. He is continued on Decadron 4 mg IVP every 6 hours. The patient is seen today May 21, 2023 and follow-up on the regular medical floor. He is sitting up in a chair at the bedside. Awake and alert in no acute distress. Denies any worsening shortness of breath, cough or congestion. No hemoptysis. He remains on DuoNeb ventilations, Symbicort, Decadron. Antibiotics in the form of ceftriaxone. INR 1.1. The plan is for PICC line placement and to be initiated on carboplatin today. He remains on a heparin dr ip. The patient is seen today May 22, 2023 in follow-up on the regular medical floor. He is currently resting in bed. He did have some issues with agitation and combativeness requiring Haldol and soft restraints. public health engineer is at the bedside. He is maintaining good O2 saturation in the mid 90s on room air. He has been afebrile. Hemodynamically stable. His hemoglobin is 6.4 and he is receiving 1 unit of packed red blood cells. Platelets 298. White count 8.4. INR 1.2. Sodium 139. Potassium 4.3. Bicarb 21. BUN 12. Creatinine 0.7. Glucose 124. He remains on a heparin drip. Remains on antibiotics in the form of ceftriaxone. Decadron 4 mg IVP every 8 hours. Continued on DuoNeb ventilations, Symbicort. Normal saline at 75 MLS per hour. He did receive carboplatin and Alimta yesterday. Objective - Vital Signs Vital signs: Vital Signs Temp 97.2 F L 05/22/23 02:00 Pulse 113 H 05/22/23 08:05 Resp 18 05/22/23 08:05 BP 120/70 05/22/23 08:05 Pulse Ox 95 05/22/23 08:05 FiO2 Intake & Output 05/21/23 05/22/23 05/22/23 18:59 06:59 18:59 Intake Total 174.983 221.443 73.99 Output Total 500 0 950 Balance -325.017 221.443 -876.01 Weight 76.4 kg Intake: Intake, IV Titration 174.983 221.443 73.99 Amount Heparin Sod,Pork in 0.45% 174.983 221.443 73.99 NaCl 25,000 unit In 0.45 % NaCl 1 250ml.bag @ 12 UNITS/KG/HR 9.036 mls/hr IV .Q24H [facility] Rx#: [id number] Output: Urine 500 0 950 Straight 950 Other: Voiding Method Urinal Urinal # Voids 1 - Exam GENERAL EXAM: Alert, confused at times 63-year-old male, on room air, in no apparent distress. HEAD: Normocephalic. EYES: Normal reaction of pupils, equal size. NOSE: Clear with pink turbinates. THROAT: No erythema or exudates. NECK: No masses, no JVD. CHEST: No chest wall deformity. LUNGS: Equal air entry with few bilateral scattered rhonchi. CVS: S1 and S2 normal with no audible murmur, irregular rhythm. ABDOMEN: No hepatosplenomegaly, normal bowel sounds, no guarding or rigidity. SPINE: No scoliosis or deformity SKIN: No rashes CENTRAL NERVOUS SYSTEM: No focal deficits, tone is normal in all 4 extremities. EXTREMITIES: There is no peripheral edema. No clubbing, no cyanosis. Peripheral pulses are intact. - Labs CBC & Chem 7: 05/22/23 06:08 05/22/23 06:08 Labs: Abnormal Lab Results - Last 24 Hours (Table) 05/21/23 05/21/23 05/22/23 Range/Units 14:59 22:34 06:08 RBC 2.60 L (4.40-5.60) X 10*6/uL Hgb 6.4 A* (13.0-17.0) g/dL Hct 22.2 L (39.6-50.0) % MCH 24.6 L (27.0-32.0) pg MCHC 28.8 L (32.0-37.0) g/dL RDW 16.1 H (11.5-14.5) % Immature Gran # 0.06 H (0.00-0.04) X 10*3/uL Lymphocytes # 0.45 L (0.90-5.00) X 10*3/uL Eosinophils # 0 L (0.04-0.35) X 10*3/uL Hypochromasia (manual) 2+ A Microcytosis (manual) 2+ A Acanthocytes (Spur) 2+ A PT (10.0-12.5) sec INR (<1.2) APTT 37.0 H 31.9 H (22.0-30.0) sec Carbon Dioxide (21.6-31.8) mmol/L Glucose (70-110) mg/dL 05/22/23 05/22/23 05/22/23 Range/Units 06:08 06:08 08:08 RBC (4.40-5.60) X 10*6/uL Hgb (13.0-17.0) g/dL Hct (39.6-50.0) % MCH (27.0-32.0) pg MCHC (32.0-37.0) g/dL RDW (11.5-14.5) % Immature Gran # (0.00-0.04) X 10*3/uL Lymphocytes # (0.90-5.00) X 10*3/uL Eosinophils # (0.04-0.35) X 10*3/uL Hypochromasia (manual) Microcytosis (manual) Acanthocytes (Spur) PT 12.7 H (10.0-12.5) sec INR 1.2 H (<1.2) APTT 96.1 H (22.0-30.0) sec Carbon Dioxide 21.4 L (21.6-31.8) mmol/L Glucose 124 H (70-110) mg/dL Microbiology - Last 24 Hours (Table) 05/19/23 08:55 Blood Culture - Preliminary Blood 05/19/23 08:40 Blood Culture - Preliminary Blood Assessment and Plan Assessment: Episodic hemoptysis due to his underlying lung cancer probably invading the right upper lobe bronchus which probably is the source of bleed in addition to intake of anticoagulation with warfarin. INR down to 1.1. No signs of any mass cameron hemoptysis and the patient is able to cough out some bloody mucus. No blood clots. No interval worsening in the overall respiratory status as his last discharge. Metastatic adenocarcinoma of the lung and diagnosis was made by biopsy of the exiting mass and intestinal mass. The patient has MIXOLOGIST metastases. The patient has extensive mediastinal and the right hilar soft tissue masses and the lymphadenopathy consistent with metastatic disease. Patient also has enlarged right axillary lymph node and small bilateral pleural effusions and multiple bilateral pulmonary nodules and areas of groundglass opacity suggestive of metastases. Noted the right hilar mass surrounding the narrowed the bedside the pulmonary artery pressure was in the right upper lobe. Patient also has extensive upper abdominal metastases or in the liver and spleen. There is also evidence of brain metastases. Patient has not started any treatment under the care of medical oncology. Follow-up computed tomography scan of the chest from 05/19/2023 shows overall significant progression of metastatic disease with extensive soft tissue metastasis/nodes in the neck and chest showing appreciable increase in size. There is worsening, lumbar mediastinal and hilar soft tissue masses/adenopathy resultant slightly worsened narrowing of branches of the right pulmonary artery and bronchi in the right hilum. New pulmonary emboli in the right lower lobe artery, segmental and sent segmental branches. Interval worsening of opacity in the right upper lobe, concerning for spread of tumor with possible superimposed pneumonitis. This obscures some the lung nodules evident before. There are also enlarging nodules in the superior segment of the right lower lobe. Small bilateral pleural effusions. Improved groundglass opacities and multiple nodules in the left lung, with residual nodularity. Worsening extensive upper abdominal metastatic disease, with significant enlargement of metastasis/nodes as above. Initiated on Alimta and carboplatin 05/21/2023 Brain metastases with a left occipital lobe peripherally enhancing lesion suspicious for metastases and hemosiderin the position suggestive of prior hemorrhage. No evidence of any acute or subacute infarction based on MRI of the brain that was done on 04/26/2023. The patient was seen by radiation oncology. MRI of the brain today 05/20/2023 revealed a 1.4 cm ring-enhancing lesion was some mild vasogenic edema adjacent right frontal lobe. Suspicious for metastatic lesion. Altered mental status secondary to above Acute pulmonary emboli secondary to above, currently on heparin drip Acute on chronic anemia, hemoglobin 6.4 today, receiving 1 unit of packed red blood cells Chronic atrial fibrillation, maintained on warfarin in the outpatient setting Mechanical aortic valve placed in 2019, maintained on warfarin, history of bicuspid aortic valve Coronary artery disease bypass surgery, mild nonobstructive CAD current cardiac catheterization from [facility] 2019 CHF with an underlying impaired systolic heart failure with an ejection fraction of 35-40% Hypertension Hyperlipidemia Psoriasis Previous history of traumatic brain injury Plan: The patient was seen and evaluated Medications and labs reviewed Receiving 1 unit of packed red blood cells today Started carboplatin and Alimta yesterday Remains on Decadron Remains on a heparin drip public health engineer at the bedside We will continue to follow I have personally seen and examined the patient, performed the documentation and the assessment and plan as written. Number of minutes spent on the visit: 10.
--- NOTE | 2023-05-22 13:57 | P.PN ---
Subjective Progress Note Date: 05/22/23 Principal diagnosis: Hemoptysis, lung adenocarcinoma In f/u today pt is very emotional. He was up to the restroom and now has sciatic pain is really intensified. She knows of plan is to start chemotherapy today, he is in agreement with the same. He had his PICC line placed last night, he denies any unusual swelling or pain in the left arm. No fevers. He is tolerating oral intake and still ambulatory. No overt neurological complaints from the patient. Objective - Vital Signs Vital signs: Vital Signs Temp 97.4 F L 05/22/23 13:32 Pulse 101 H 05/22/23 13:32 Resp 16 05/22/23 13:32 BP 150/86 05/22/23 13:32 Pulse Ox 98 05/22/23 13:32 FiO2 Intake & Output 05/21/23 05/22/23 05/22/23 18:59 06:59 18:59 Intake Total 174.983 221.443 73.99 Output Total 500 0 1450 Balance -325.017 221.443 -1376.01 Weight 76.4 kg Intake: Intake, IV Titration 174.983 221.443 73.99 Amount Heparin Sod,Pork in 0.45% 174.983 221.443 73.99 NaCl 25,000 unit In 0.45 % NaCl 1 250ml.bag @ 12 UNITS/KG/HR 9.036 mls/hr IV .Q24H [facility] Rx#: [id number] Blood Product 0 Unit 0 Output: Urine 500 0 1450 Straight 950 Other: Voiding Method Urinal Urinal Urinal # Voids 1 - Constitutional General appearance: Present: mild distress (psychological ), thin - EENT Eyes: Present: anicteric sclerae ENT: Present: hearing grossly normal - Respiratory Respiratory: bilateral: CTA - Cardiovascular Heart sounds: normal: S1, S2 - Peripheral edema leg Peripheral Edema: bilateral: None - Gastrointestinal General gastrointestinal: Present: soft - Musculoskeletal Musculoskeletal: Present: generalized weakness - Psychiatric Psychiatric Comment(s): Irritable, anxious, aggressive and paranoid at times, confused as to where he is, he does recognize his . Psychiatric: Absent: A&O x's 3, appropriate affect, intact judgment & insight - Labs CBC & Chem 7: 05/22/23 06:08 05/22/23 06:08 Labs: Abnormal Lab Results - Last 24 Hours (Table) 05/21/23 05/21/23 05/22/23 Range/Units 14:59 22:34 06:08 RBC 2.60 L (4.40-5.60) X 10*6/uL Hgb 6.4 A* (13.0-17.0) g/dL Hct 22.2 L (39.6-50.0) % MCH 24.6 L (27.0-32.0) pg MCHC 28.8 L (32.0-37.0) g/dL RDW 16.1 H (11.5-14.5) % Immature Gran # 0.06 H (0.00-0.04) X 10*3/uL Lymphocytes # 0.45 L (0.90-5.00) X 10*3/uL Eosinophils # 0 L (0.04-0.35) X 10*3/uL Hypochromasia (manual) 2+ A Microcytosis (manual) 2+ A Acanthocytes (Spur) 2+ A PT (10.0-12.5) sec INR (<1.2) APTT 37.0 H 31.9 H (22.0-30.0) sec Carbon Dioxide (21.6-31.8) mmol/L Glucose (70-110) mg/dL Crossmatch 05/22/23 05/22/23 05/22/23 Range/Units 06:08 06:08 08:08 RBC (4.40-5.60) X 10*6/uL Hgb (13.0-17.0) g/dL Hct (39.6-50.0) % MCH (27.0-32.0) pg MCHC (32.0-37.0) g/dL RDW (11.5-14.5) % Immature Gran # (0.00-0.04) X 10*3/uL Lymphocytes # (0.90-5.00) X 10*3/uL Eosinophils # (0.04-0.35) X 10*3/uL Hypochromasia (manual) Microcytosis (manual) Acanthocytes (Spur) PT 12.7 H (10.0-12.5) sec INR 1.2 H (<1.2) APTT 96.1 H (22.0-30.0) sec Carbon Dioxide 21.4 L (21.6-31.8) mmol/L Glucose 124 H (70-110) mg/dL Crossmatch 05/22/23 Range/Units 11:55 RBC (4.40-5.60) X 10*6/uL Hgb (13.0-17.0) g/dL Hct (39.6-50.0) % MCH (27.0-32.0) pg MCHC (32.0-37.0) g/dL RDW (11.5-14.5) % Immature Gran # (0.00-0.04) X 10*3/uL Lymphocytes # (0.90-5.00) X 10*3/uL Eosinophils # (0.04-0.35) X 10*3/uL Hypochromasia (manual) Microcytosis (manual) Acanthocytes (Spur) PT (10.0-12.5) sec INR (<1.2) APTT (22.0-30.0) sec Carbon Dioxide (21.6-31.8) mmol/L Glucose (70-110) mg/dL Crossmatch See Detail Microbiology - Last 24 Hours (Table) 05/19/23 08:55 Blood Culture - Preliminary Blood 05/19/23 08:40 Blood Culture - Preliminary Blood Assessment and Plan (1) Hemoptysis Current Visit: Yes Status: Acute Priority: High Code(s): R04.2 - HEMOPTYSIS SNOMED Code(s): 69119848 (2) Pulmonary embolism Current Visit: Yes Status: Acute Priority: High Code(s): I26.99 - OTHER PULMONARY EMBOLISM WITHOUT ACUTE COR PULMONALE SNOMED Code(s): 88814089 (3) Metastatic non-small cell lung cancer Current Visit: Yes Status: Acute Code(s): C34.90 - MALIGNANT NEOPLASM OF UNSP PART OF UNSP BRONCHUS OR LUNG SNOMED Code(s): 781989136 (4) Supratherapeutic INR Current Visit: Yes Status: Resolved Priority: High Code(s): R79.1 - ABNORMAL COAGULATION PROFILE SNOMED Code(s): 300952337 Plan: PE -New Rt lung PE, BLE doppler for baseline-neg for DVT -[place] to be provoked 2/2 malignancy, recent multiple hospitalizations and holding of coumadin last week because of hemoptysis. -Duration of anticoagulation for a provoked PE is irrelevant. The patient has an artificial heart valve and he needs to be on full dose anticoagulation indefinitely. Artificial heart valve -Patient previously on Coumadin. INR regulation is challenging due to changes in oral intake, malignancy in the GI tract. -Coumadin reversed. Low intensity heparin drip started. No reported hemoptysis -Pending Cardiology recommendations for alternative anticoagulation to coumadin for artificial heart valve (lovenox?) AMS -Repeat MRI brain-mood and behavioral changes-showing several lesions and vasogenic edema. Dexamethasone IV ordered. PPI BID. -Pt had psychotic episode over night requiring meds and restraint. He is absolutely wore out today. He is still confused, agitated and restless -Pt behavior symptoms did not improve with steroids, as would be expected if changes were because of brain mets and vasogenic edema. Concern if steroids are contributing so, reduced frequency. Xanax changed to IV ativan today. Discussed case with IM who are going to adjust freq of pain meds. Hopeful for improvements -Discussed with concerns that possibly pt has leptomeningeal mets that are causing the emotional/mood/cognitive changes. Have asked Anesthesiology for a LP under sedation for CSF specimen to be sent for cytology. Pending to see if that can be done. Hemoptysis -Resolved -Coumadin held. Low intensity heparin drip ordered. -Pending Cardiology recs if lovenox can be used Non-small cell adenocarcinoma, non-squamous, metastatic disease, rapid progression -Pt 1st presented on 04/18 and has since been inpt 2 additional times in the last 3 weeks. He has been unable to stay out of the hospital long enough to start treatment. MRI brain is showing 1.4 cm ring enhancing lesion. CT chest is reporting significant progression of disease in just 3 weeks. Pt had 1st cycle of carbo/alimta yesterday. Next cycle will not be due for 21 days. -Cont use of supportive medications as needed based on reported symptoms -Labs ordered Pain and anxiety from diagnosis -Pt reports adequate pain control on current analgesic regimen most of the time. -Medications for prevention of narcotic-induced constipation ordered -Anxiety medication changed from xanax to ativan IV to see if that helps Attests: I have seen and examined pt, performed H&P, developed impression and plan of care. Discussed with dictator. Agree with documentation, dictated as a scribe.
[2023-05-22] MEDS ORDERED: QUEtiapine 25 MG TAB PO PRN (15:17)
--- NOTE | 2023-05-22 15:20 | P.PN ---
Subjective Progress Note Date: 05/22/23 This is a 30-year-old male who comes in with complaints of hemoptysis. Patient had chest CT showing progression of meta static lymph nodes in the neck chest and upper abdomen. There is also concern for bronchial invasion and with a right upper lobe infiltrate. He was admitted to the hospital with a consult placed to hematology with plans to undergo induction chemotherapy and radiation. Patient will have brain MRI completed today. He also reports not having a bowel movement. Blood work today shows white count 8.21, hemoglobin 7.8, sodium 134, BUN 7.1, creatinine 0.8. 05/21/2023 Patient is monitored to the medical floor he is being followed closely by oncology with plans for induction chemotherapy today. Not yet had a bowel movement but had not received MiraLAX we will try that first before giving an enema or stronger laxative. Abdomen is softer today and he does have positive normoactive bowel sounds throughout. Patient had a PICC line inserted today. Brain MRI shows a 1.4 cm ring-enhancing lesion with some mild vasogenic edema adjacent to the right frontal lobe findings are concerning for metastatic lesion he has been started on IV dexamethasone by oncology. Recommendations were made to hold warfarin at this time and INR was reversed patient was given the 5 mg dose of vitamin K. His INR today is 1.1 and he has been initiated on an IV heparin drip at this time. 05/22/2023 Patient is evaluated today resting in bed he is currently in 2-point restraints his is sitting at the bedside. Patient did receive his first dose of IV chemotherapy yesterday he is also on Decadron for the vasogenic edema. He was significantly agitated last night he did get out of bed fell in the hallway he was restrained and did require sedation to calm down. We would currently recommend to stop the Xanax decrease the frequency of the oxycodone and avoid Dilaudid if possible. Patient will be given Seroquel at at bedtime and also daily as needed for acute agitation. Patient continues on a course of IV ceftriaxone. He is also on IV heparin with warfarin being held. Status post [facility] his labs today are showing a hemoglobin of 7.4, platelet count of 298, white count of 8.41. His electrolytes are within normal limits. Review of Systems Constitutional: Denied any fatigue denied any fever. Cardio vascular: denied any chest pain, palpitations Gastrointestinal: denied any nausea, vomiting, diarrhea Pulmonary: Denied any shortness of breath cough Neurologic denied any new focal deficits All inpatient medications were reviewed and appropriate changes in these medications as dictated in the interval history and assessment and plan. PHYSICAL EXAMINATION: GENERAL: The patient is alert and oriented x1, not in any acute distress. Well developed, well nourished. HEENT: Pupils are round and equally reacting to light. EOMI. No scleral icterus. No conjunctival pallor. Normocephalic, atraumatic. No pharyngeal erythema. No thyromegaly. CARDIOVASCULAR: S1 and S2 present. No murmurs, rubs, or gallops. PULMONARY: Chest is clear to auscultation, no wheezing or crackles. ABDOMEN: Soft, nontender, nondistended, normoactive bowel sounds. No palpable organomegaly. MUSCULOSKELETAL: No joint swelling or deformity. EXTREMITIES: No cyanosis, clubbing, or pedal edema. NEUROLOGICAL: Gross neurological examination did not reveal any focal deficits. SKIN: No rashes. Assessment and Plan -A. fib with RVR maintained on metoprolol with improvement in heart rate down to the 90s. Continue on metoprolol. 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 Patient scheduled to undergo chemotherapy induction today. -Altered mental status felt to be due to a brain metastasis exacerbated by multiple medications that can cause confusion and high dose steroids -Acute exacerbation of obstructive lung disease on 2L of oxygen adequate saturations. -Acute right lung pulmonary embolism with bilateral lower extremity Doppler negative for DVT felt to be because of the malignancy and also warfarin being on hold due to the hemoptysis patient is now on an IV heparin drip for this -chronic hypoxic respiratory failure -Chronic atrial fibrillation -Mechanical aortic valve -Coronary artery disease with prior CABG -Chronic congestive heart failure with reduced ejection fraction of 35% -Chronic cancer related pain GI prophlyaxis DVT prophylaxis: Full Code The impression and plan of care has been dictated by Ysabel Guillen, Nurse Practitioner as directed. Dr. Jarvis MD I have performed a history and physical examination and medical decision making of this patient, discussed the same with the dictator, and agree with the dictators assessment and plan as written, documented as a scribe. Based on total visit time, I have performed more than 50% of this visit. Objective - Vital Signs Vital signs: Vital Signs Temp 97.4 F L 05/22/23 14:00 Pulse 102 H 05/22/23 14:00 Resp 16 05/22/23 14:00 BP 131/77 05/22/23 14:00 Pulse Ox 97 05/22/23 14:00 FiO2 Intake & Output 05/21/23 05/22/23 05/22/23 18:59 06:59 18:59 Intake Total 174.983 221.443 73.99 Output Total 500 0 1450 Balance -325.017 221.443 -1376.01 Weight 76.4 kg 76.4 kg Intake: Intake, IV Titration 174.983 221.443 73.99 Amount Heparin Sod,Pork in 0.45% 174.983 221.443 73.99 NaCl 25,000 unit In 0.45 % NaCl 1 250ml.bag @ 12 UNITS/KG/HR 9.036 mls/hr IV .Q24H [facility] Rx#: [id number] Blood Product 0 Unit 0 Output: Urine 500 0 1450 Straight 950 Other: Voiding Method Urinal Urinal Urinal # Voids 1 - Labs CBC & Chem 7: 05/22/23 06:08 05/22/23 06:08 Labs: Abnormal Lab Results - Last 24 Hours (Table) 05/21/23 05/21/23 05/22/23 Range/Units 14:59 22:34 06:08 RBC 2.60 L (4.40-5.60) X 10*6/uL Hgb 6.4 A* (13.0-17.0) g/dL Hct 22.2 L (39.6-50.0) % MCH 24.6 L (27.0-32.0) pg MCHC 28.8 L (32.0-37.0) g/dL RDW 16.1 H (11.5-14.5) % Immature Gran # 0.06 H (0.00-0.04) X 10*3/uL Lymphocytes # 0.45 L (0.90-5.00) X 10*3/uL Eosinophils # 0 L (0.04-0.35) X 10*3/uL Hypochromasia (manual) 2+ A Microcytosis (manual) 2+ A Acanthocytes (Spur) 2+ A PT (10.0-12.5) sec INR (<1.2) APTT 37.0 H 31.9 H (22.0-30.0) sec Carbon Dioxide (21.6-31.8) mmol/L Glucose (70-110) mg/dL Crossmatch 05/22/23 05/22/23 05/22/23 Range/Units 06:08 06:08 08:08 RBC (4.40-5.60) X 10*6/uL Hgb (13.0-17.0) g/dL Hct (39.6-50.0) % MCH (27.0-32.0) pg MCHC (32.0-37.0) g/dL RDW (11.5-14.5) % Immature Gran # (0.00-0.04) X 10*3/uL Lymphocytes # (0.90-5.00) X 10*3/uL Eosinophils # (0.04-0.35) X 10*3/uL Hypochromasia (manual) Microcytosis (manual) Acanthocytes (Spur) PT 12.7 H (10.0-12.5) sec INR 1.2 H (<1.2) APTT 96.1 H (22.0-30.0) sec Carbon Dioxide 21.4 L (21.6-31.8) mmol/L Glucose 124 H (70-110) mg/dL Crossmatch 05/22/23 Range/Units 11:55 RBC (4.40-5.60) X 10*6/uL Hgb (13.0-17.0) g/dL Hct (39.6-50.0) % MCH (27.0-32.0) pg MCHC (32.0-37.0) g/dL RDW (11.5-14.5) % Immature Gran # (0.00-0.04) X 10*3/uL Lymphocytes # (0.90-5.00) X 10*3/uL Eosinophils # (0.04-0.35) X 10*3/uL Hypochromasia (manual) Microcytosis (manual) Acanthocytes (Spur) PT (10.0-12.5) sec INR (<1.2) APTT (22.0-30.0) sec Carbon Dioxide (21.6-31.8) mmol/L Glucose (70-110) mg/dL Crossmatch See Detail Microbiology - Last 24 Hours (Table) 05/19/23 08:55 Blood Culture - Preliminary Blood 05/19/23 08:40 Blood Culture - Preliminary Blood Assessment and Plan Time with Patient: Less than 30
[2023-05-22] MEDS: LORazepam 2 MG/ML INJ IV PRN (15:56)
[2023-05-22] MEDS: BUDESONIDE 1 MG/2 ML NEBU INHALATION SCH (18:35)
[2023-05-22] MEDS: FORMOTEROL FUMARATE 20 MCG/2 ML NEBU INHALATION SCH (18:35)
[2023-05-22] MEDS: FUROSEMIDE 10 MG/ML 4 ML VIAL IV STA (19:00)
[2023-05-22 19:24] LABS: Glucose,Whole Blood 213 mg/dL (70-110)
--- NOTE | 2023-05-22 19:30 | XR ---
EXAMINATION TYPE: XR chest 1V portable DATE OF EXAM: 05/22/2023 7:24 PM CLINICAL INDICATION:Male, 63 years old with history of shortness of breath; H COMPARISON: Chest radiographs from 05/19/2023 TECHNIQUE: XR chest 1V portable Frontal view of the chest. FINDINGS: Lungs/Pleura: Similar multifocal airspace opacities. No evidence of pneumothorax or pleural effusion. Pulmonary vascularity: Unremarkable. Heart/mediastinum: Cardiomediastinal silhouette is unremarkable. Musculoskeletal: No acute osseous pathology. Midline sternotomy wires are noted. Other findings: None IMPRESSION: Similar right-sided airspace opacities.
[2023-05-22] MEDS ORDERED: Potassium Replacement Protocol 1 EACH MISC MISCELLANE PRN (19:40)
[2023-05-22] MEDS ORDERED: Magnesium Replacement Protocol 1 EACH MISC MISCELLANE PRN (19:40)
[2023-05-22] MEDS: DEXMEDETOMIDINE/0.9% NACL(PMX) 400 MCG in EMPTY BAG 1 BAG IV SCH (20:00)
[2023-05-22 20:14] LABS: Glucose,Whole Blood 154 mg/dL (70-110)
[2023-05-22] MEDS ORDERED: ETOMIDATE 2 MG/ML 10 ML VIAL ONE (20:45)
[2023-05-22] MEDS ORDERED: SUCCINYLCHOLINE CHLORIDE 200 MG/10 ML VIAL IV ONE (20:45)
--- NOTE | 2023-05-22 21:07 | XR ---
EXAMINATION TYPE: XR chest 1V portable DATE OF EXAM: 05/22/2023 9:01 PM CLINICAL INDICATION:Male, 63 years old with history of Tube placement; [facility] COMPARISON: Chest radiographs from 05/22/2023, CT chest 05/19/2023 TECHNIQUE: XR chest 1V portable Frontal view of the chest. FINDINGS: Lungs/Pleura: There is no evidence of pleural effusion, focal consolidation, or pneumothorax. Pulmonary vascularity: Unremarkable. Heart/mediastinum: Cardiomediastinal silhouette is enlarged and stable. Atherosclerotic calcificatio ns are seen in the aorta. Left atrial appendage occlusion device is present. Musculoskeletal: No acute osseous pathology. Other findings: None Lines/Tubes: Endotracheal tube with distal tip 5.8 cm above the maritza. Nasogastric tube with side-port projecting over the distal esophagus. Left-sided PICC with distal tip at the superior vena cava/brachiocephalic confluence. IMPRESSION: 1. Nasogastric tube with side-port in the distal esophagus consider advancement of 9.4 cm for optima l placement. 2. Endotracheal tube in satisfactory position. 3. Right PICC in satisfactory position. 4. Similar right upper lung mass
[2023-05-22 21:15] LABS: ABG HCO3 22 mmol/L (21-25); ABG PCO2 44 mmHg (35-45); ABG PH 7.31 (7.35-7.45); ABG PO2 >400 mmHg (83-108); ABG TCO2 24 mmol/L (19-24); Allen Test Performed? Yes
[2023-05-22 21:33] LABS: Basophils % (A) 0 %; Eosinophils # (A) 0.1 k/uL (0-0.7); Eosinophils % (A) 0 %; HGB 8.5 gm/dL (13.0-17.5); Hypochromasia Marked; Lymphocytes # (A) 0.5 k/uL (1.0-4.8); Lymphocytes % (A) 3 %; MCHC 31.5 g/dL (31.0-37.0); MCV 82.5 fL (80.0-100.0); Mean Platelet Volume 8.4; Monocytes # (A) 0.7 k/uL (0-1.0); Monocytes % (A) 4 %; Neutrophils # (A) 18.6 k/uL (1.3-7.7); Neutrophils % (A) 93 %; Platelet Count 435 k/uL (150-450); Poikilocytosis Moderate; RBC 3.28 m/uL (4.30-5.90); WBC 20.1 k/uL (3.8-10.6)
[2023-05-22 21:39] LABS: African American GFR (CKD) >90 (>60 ml/min/1.73 sqM); Anion Gap 12 mmol/L; Blood Urea Nitrogen 25 mg/dL (9-20); Calcium 8.7 mg/dL (8.4-10.2); Carbon Dioxide 18 mmol/L (22-30); Chloride 109 mmol/L (98-107); Glucose 131 mg/dL (74-99); Magnesium 1.8 mg/dL (1.6-2.3); Non-African American GFR(CKD) >90 (>60 ml/min/1.73 sqM); Potassium 4.5 mmol/L (3.5-5.1); Sodium 139 mmol/L (137-145)
[2023-05-22 21:45] LABS: INR 1.2 (<1.2); Partial Thromboplastin Time 24.4 sec (22.0-30.0); Prothrombin Time 12.4 sec (10.0-12.5)
[2023-05-22] MEDS: NOREPINEPHRINE 8 MG in SODIUM CHLORIDE 0.9% 250 ML IV SCH (21:57)
[2023-05-22] MEDS: CHLORHEXIDINE GLUCONATE 15 ML CUP MUCOUS MEM SCH (21:57)
--- NOTE | 2023-05-22 22:04 | XR ---
EXAMINATION TYPE: XR chest 1V DATE OF EXAM: 05/22/2023 9:55 PM CLINICAL INDICATION:Male, 63 years old with history of OG placement; [facility] COMPARISON: Chest radiographs from same day TECHNIQUE: XR chest 1V Frontal view of the chest. FINDINGS/IMPRESSION: Nasogastric tube, left PICC and endotracheal tube are now in appropriate position. The remainder of e xam is unchanged.
[2023-05-22] MEDS: fentaNYL (PF). 1,000 MCG in SODIUM CHLORIDE 0.9% 80 ML IV SCH (22:20)
[2023-05-23 04:28] LABS: ABG Base Excess 1.1 mmol/L; ABG HCO3 25 mmol/L (21-25); ABG PCO2 34 mmHg (35-45); ABG PH 7.47 (7.35-7.45); ABG PO2 205 mmHg (83-108); ABG TCO2 26 mmol/L (19-24); Allen Test Performed? Yes
[2023-05-23 04:53] LABS: Anisocytosis Slight; Basophils % (A) 0 %; Eosinophils % (A) 0 %; HCT 24.8 % (39.0-53.0); HGB 7.9 gm/dL (13.0-17.5); Hypochromasia Marked; Lymphocytes # (A) 0.4 k/uL (1.0-4.8); Lymphocytes % (A) 4 %; MCH 25.8 pg (25.0-35.0); MCV 80.6 fL (80.0-100.0); Mean Platelet Volume 8.6; Monocytes # (A) 0.4 k/uL (0-1.0); Monocytes % (A) 4 %; Neutrophils % (A) 91 %; Platelet Count 297 k/uL (150-450); Poikilocytosis Moderate; RBC 3.08 m/uL (4.30-5.90); RDW 16.2 % (11.5-15.5); WBC 10.9 k/uL (3.8-10.6)
[2023-05-23 05:14] LABS: African American GFR (CKD) >90 (>60 ml/min/1.73 sqM); Anion Gap 7 mmol/L; Blood Urea Nitrogen 27 mg/dL (9-20); Carbon Dioxide 22 mmol/L (22-30); Chloride 107 mmol/L (98-107); Glucose 114 mg/dL (74-99); Non-African American GFR(CKD) >90 (>60 ml/min/1.73 sqM); Potassium 4.7 mmol/L (3.5-5.1); Sodium 136 mmol/L (137-145)
[2023-05-23 06:47] LABS: Glucose,Whole Blood 155 mg/dL (70-110)
--- NOTE | 2023-05-23 08:15 | XR ---
EXAMINATION TYPE: XR chest 1V portable DATE OF EXAM: 05/23/2023 5:38 AM CLINICAL INDICATION:Male, 63 years old with history of Tube placement; COMPARISON: Chest radiograph from one day prior. CT 05/19/2023. TECHNIQUE: XR chest 1V portable Frontal view of the chest. FINDINGS: Lungs/Pleura: Stable right upper paramediastinal airspace opacities and mass as seen on prior CT.. Th ere is no evidence of pleural effusion, focal consolidation, or pneumothorax. Pulmonary vascularity: Unremarkable. Heart/mediastinum: Cardiomediastinal silhouette is enlarged and stable. Atherosclerotic calcificatio ns are seen in the aorta. Left atrial appendage occlusion device is present. Musculoskeletal: No acute osseous pathology. Other findings: None Lines/Tubes: Endotracheal tube with distal tip 5.0 cm above the martiza. Nasogastric tube with its distal tip and side-port projecting under the diaphragm. Left-sided PICC with distal tip at the superior vena cava/brachiocephalic confluence. IMPRESSION: Stable support line and tubes.
[2023-05-23] MEDS: CISATRACURIUM 2 MG/ML 5 ML VIAL IV ONE ×3 (11:43→13:29)
--- NOTE | 2023-05-23 13:16 | OP ---
OPERATIVE REPORT DATE OF SERVICE : PROCEDURE PERFORMED: Placement of right radial arterial line. PREOPERATIVE DIAGNOSES: Acute hypoxic respiratory failure and hemoptysis. POSTOPERATIVE DIAGNOSES: Acute hypoxic respiratory failure and hemoptysis. ANESTHESIA USED: None deployed. DESCRIPTION OF PROCEDURE: The right wrist was prepared in a sterile fashion. Drapes were applied, the right radial artery was palpated, cannulated easily, and a guidewire was placed. A Cook catheter was inserted over the guidewire, and the guidewire was removed. Good blood flow, good waveform noted, no complications. Line was secured using 3.0 silk sutures. MMODL / IJN: [id number] /
--- NOTE | 2023-05-23 13:21 | OP ---
OPERATIVE REPORT DATE OF SERVICE : PROCEDURES PERFORMED: Bronchoscopy and bronchoalveolar lavage of the right upper lobe, right middle lobe, right lower lobe. PREOPERATIVE DIAGNOSIS: Acute hypoxic respiratory failure and hemoptysis. POSTOPERATIVE DIAGNOSIS: Acute hypoxic respiratory failure and hemoptysis. ANESTHESIA USED: The patient was intubated and mechanically ventilated, he was already on propofol and fentanyl, and he was given 10 mg of Nimbex prior to the procedure. DESCRIPTION OF PROCEDURE: The patient was placed in the supine position, he was already intubated, mechanically ventilated, and we were monitoring his O2 saturation continuously, blood pressure was continuously monitored. The bronchoscope was inserted through the adapter of the endotracheal tube, and went down to the distal trachea. There was evidence of blood noted on the mucosa of the right mainstem bronchus and also on the mucosa of the left mainstem bronchus. Blood was suctioned. A thorough examination was done of the right upper lobe, right middle lobe, right lower lobe, left upper lobe, lingula, and left lower lobe. There was minimal old blood noted on the mucosa of the airways, but there was no evidence of any active bleeding. Then, as I entered the right upper lobe, there was clearly evidence of a large tumor involving the apical segment of the right upper lobe, and extending into the anterior segment also into the posterior segment. The apical segment was totally occluded with the tumor. Lavage of the right upper lobe, right middle lobe and right lower lobe done, fluid was sent for cultures, no complications noted, the patient tolerated the procedure well. MMODL / IJN: [id number] /
--- NOTE | 2023-05-23 13:23 | XR ---
EXAMINATION TYPE: XR chest 1V portable DATE OF EXAM: 05/23/2023 COMPARISON: 05/23/2023 INDICATION: Occulting breathing, stacking breaths TECHNIQUE: Single frontal view of the chest is obtained. FINDINGS: The heart size is normal. The pulmonary vasculature is normal. There is mild increased lung markings to the right lung. The endotracheal tube tip is above the maritza. Nasogastric tube tip is within the left upper quadrant of the abdomen. PICC line enters on the left with the tip in the proximal right atrium. IMPRESSION: 1. Mild right lung infiltrate. Correlate for atelectasis and pneumonia. 2. Lines and catheters discussed above
--- NOTE | 2023-05-23 13:40 | P.PN ---
Subjective Progress Note Date: 05/23/23 This is a 30-year-old male who comes in with complaints of hemoptysis. Patient had chest CT showing progression of meta static lymph nodes in the neck chest and upper abdomen. There is also concern for bronchial invasion and with a right upper lobe infiltrate. He was admitted to the hospital with a consult placed to hematology with plans to undergo induction chemotherapy and radiation. Patient will have brain MRI completed today. He also reports not having a bowel movement. Blood work today shows white count 8.21, hemoglobin 7.8, sodium 134, BUN 7.1, creatinine 0.8. 05/21/2023 Patient is monitored to the medical floor he is being followed closely by oncology with plans for induction chemotherapy today. Not yet had a bowel movement but had not received MiraLAX we will try that first before giving an enema or stronger laxative. Abdomen is softer today and he does have positive normoactive bowel sounds throughout. Patient had a PICC line inserted today. Brain MRI shows a 1.4 cm ring-enhancing lesion with some mild vasogenic edema adjacent to the right frontal lobe findings are concerning for metastatic lesion he has been started on IV dexamethasone by oncology. Recommendations were made to hold warfarin at this time and INR was reversed patient was given the 5 mg dose of vitamin K. His INR today is 1.1 and he has been initiated on an IV heparin drip at this time. 05/22/2023 Patient is evaluated today resting in bed he is currently in 2-point restraints his is sitting at the bedside. Patient did receive his first dose of IV chemotherapy yesterday he is also on Decadron for the vasogenic edema. He was significantly agitated last night he did get out of bed fell in the hallway he was restrained and did require sedation to calm down. We would currently recommend to stop the Xanax decrease the frequency of the oxycodone and avoid Dilaudid if possible. Patient will be given Seroquel at at bedtime and also daily as needed for acute agitation. Patient continues on a course of IV ceftriaxone. He is also on IV heparin with warfarin being held. Status post [facility] his labs today are showing a hemoglobin of 7.4, platelet count of 298, white count of 8.41. His electrolytes are within normal limits. 05/23. Patient seen and examined. Patient currently intubated and sedated. Labs at this morning showed WBC 10.9, hemoglobin 7.9, platelet count 297 REVIEW OF SYSTEMS: Currently intubated and sedated PHYSICAL EXAMINATION: GENERAL: The patient is intubated and sedated HEENT: Pupils are round and equally reacting to light. No pharyngeal erythema. No thyromegaly. CARDIOVASCULAR: S1 and S2 present. No murmurs, rubs, or gallops. PULMONARY: Coarse Breath sounds bilaterally, no wheezing or crackles. ABDOMEN: Soft, nontender, nondistended, normoactive bowel sounds. No palpable organomegaly. MUSCULOSKELETAL: No joint swelling or deformity. EXTREMITIES: No cyanosis, clubbing, or pedal edema. NEUROLOGICAL: Intubated and sedated SKIN: No rashes. Assessment and plan Episodic hemoptysis due to his underlying lung cancer probably invading the right upper lobe bronchus Metastatic adenocarcinoma of the lung and diagnosis was made by biopsy of the exiting mass and intestinal mass. The patient has PUMP TENDER metastases. Brain metastases Altered mental status secondary to above Acute pulmonary emboli secondary to above, currently on heparin drip Acute on chronic anemia Chronic atrial fibrillation Mechanical aortic valve placed in 2019 Coronary artery disease bypass surgery, mild nonobstructive CAD current cardiac catheterization from [facility] 2019 CHF with an underlying impaired systolic heart failure with an ejection fraction of 35-40% Hypertension Hyperlipidemia Psoriasis Previous history of traumatic brain injury Monitor vital signs Monitor CBC Monitor CMP Continue vent management per ICU Aggressive bronchopulmonary hygiene continue telemetry monitoring, Continue on metoprolol. Continue pharmacy dose heparin Continue IV Precedex and propofol Continue IV Zosyn Repeat MRI brain-mood and behavioral changes-showing several lesions and vasogenic edema. Dexamethasone IV ordered. PPI BID. Patient started on chemotherapy with carboplatin and Alimta on 05/21 Pulmonology following Hematology oncology following Labs and medication were reviewed.. Continue same treatment. Continue with symptomatic treatment. Resume home medication. Monitor labs and vitals. DVT and GI prophylaxis. Further recommendations as per clinical course of the patient Dictation was produced using [employer] dictation software. please excuse any grammatical, word or spelling errors. Objective - Vital Signs Vital signs: Vital Signs Temp 98.5 F 05/23/23 08:00 Pulse 70 05/23/23 10:00 Resp 16 05/23/23 10:00 BP 109/71 05/23/23 10:00 Pulse Ox 99 05/23/23 10:00 FiO2 35 05/23/23 10:00 Intake & Output 05/22/23 05/23/23 05/23/23 18:59 06:59 18:59 Intake Total 487.449 418.302 195.017 Output Total 1450 2860 235 Balance -962.551 -2441.698 -39.983 Weight 76.4 kg 79.7 kg 79.7 kg Intake: IV 60 .9NS 60 Intake, IV Titration 177.449 418.302 135.017 Amount Dexmedetomidine/0.9% NaCl 128.289 (Pmx) 400 mcg In Empty Bag 1 bag @ 0.5 MCG/KG/HR 9.55 mls/hr IV .[id number] [facility] Rx#:[id number] Heparin Sod,Pork in 0.45% 127.449 77.554 NaCl 25,000 unit In 0.45 % NaCl 1 250ml.bag @ 12 UNITS/KG/HR 9.036 mls/hr IV .Q24H [facility] Rx#: [id number] Norepinephrine 8 mg In 11.802 Sodium Chloride 0.9% 250 ml @ 0.03 MCG/KG/MIN 4. 435 mls/hr IV .Q24H [facility] Rx#:[id number] cefTRIAXone 2 gm In 50 Sodium Chloride 0.9% 50 ml @ 100 mls/hr IVPB Q24HR [facility] Rx#:[id number] fentaNYL (PF). 1,000 mcg 19.1 51.061 In Sodium Chloride 0.9% 80 ml @ 0.5 MCG/KG/HR 3. 82 mls/hr IV .Q24H [facility] Rx #:[id number] propofoL 1,000 mg In 181.557 83.956 Empty Bag 1 bag @ 15 MCG/ KG/MIN 6.876 mls/hr IV . [id number] [facility] Rx#:[id number] Blood Product 310 Rc As-1 Unit 310 [id number] Output: Gastric Drainage 100 Urine 1450 2760 235 Straight 950 Other: Voiding Method Urinal Indwelling Catheter - Labs CBC & Chem 7: 05/23/23 03:58 05/23/23 03:58 Labs: Abnormal Lab Results - Last 24 Hours (Table) 05/22/23 05/22/23 05/22/23 Range/Units 06:08 06:08 11:55 WBC (3.8-10.6) k/uL RBC 2.60 L (4.40-5.60) X 10*6/uL Hgb 6.4 A* (13.0-17.0) g/dL Hct 22.2 L (39.6-50.0) % MCH 24.6 L (27.0-32.0) pg MCHC 28.8 L (32.0-37.0) g/dL RDW 16.1 H (11.5-14.5) % Immature Gran # 0.06 H (0.00-0.04) X 10*3/uL Neutrophils # (1.3-7.7) k/uL Lymphocytes # 0.45 L (0.90-5.00) X 10*3/uL Eosinophils # 0 L (0.04-0.35) X 10*3/uL Hypochromasia (manual) 2+ A Microcytosis (manual) 2+ A Acanthocytes (Spur) 2+ A INR (<1.2) APTT (22.0-30.0) sec ABG pH (7.35-7.45) ABG pO2 (83-108) mmHg ABG O2 Saturation (94-97) % Sodium (137-145) mmol/L Chloride (98-107) mmol/L Carbon Dioxide 21.4 L (21.6-31.8) mmol/L BUN (9-20) mg/dL Glucose 124 H (70-110) mg/dL POC Glucose (mg/dL) (70-110) mg/dL Crossmatch See Detail 05/22/23 05/22/23 05/22/23 Range/Units 13:56 19:16 20:13 WBC (3.8-10.6) k/uL RBC (4.40-5.60) X 10*6/uL Hgb (13.0-17.0) g/dL Hct (39.6-50.0) % MCH (27.0-32.0) pg MCHC (32.0-37.0) g/dL RDW (11.5-14.5) % Immature Gran # (0.00-0.04) X 10*3/uL Neutrophils # (1.3-7.7) k/uL Lymphocytes # (0.90-5.00) X 10*3/uL Eosinophils # (0.04-0.35) X 10*3/uL Hypochromasia (manual) Microcytosis (manual) Acanthocytes (Spur) INR (<1.2) APTT 59.3 H (22.0-30.0) sec ABG pH (7.35-7.45) ABG pO2 (83-108) mmHg ABG O2 Saturation (94-97) % Sodium (137-145) mmol/L Chloride (98-107) mmol/L Carbon Dioxide (21.6-31.8) mmol/L BUN (9-20) mg/dL Glucose (70-110) mg/dL POC Glucose (mg/dL) 213 H 154 H (70-110) mg/dL Crossmatch 05/22/23 05/22/23 05/22/23 Range/Units 21:00 21:12 21:12 WBC 20.1 H (3.8-10.6) k/uL RBC 3.28 L (4.40-5.60) X 10*6/uL Hgb 8.5 L (13.0-17.0) g/dL Hct 27.0 L (39.6-50.0) % MCH (27.0-32.0) pg MCHC (32.0-37.0) g/dL RDW 16.0 H (11.5-14.5) % Immature Gran # (0.00-0.04) X 10*3/uL Neutrophils # 18.6 H (1.3-7.7) k/uL Lymphocytes # 0.5 L (0.90-5.00) X 10*3/uL Eosinophils # (0.04-0.35) X 10*3/uL Hypochromasia (manual) Microcytosis (manual) Acanthocytes (Spur) INR 1.2 H (<1.2) APTT (22.0-30.0) sec ABG pH (7.35-7.45) ABG pO2 (83-108) mmHg ABG O2 Saturation (94-97) % Sodium (137-145) mmol/L Chloride 109 H (98-107) mmol/L Carbon Dioxide 18 L (21.6-31.8) mmol/L BUN 25 H (9-20) mg/dL Glucose 131 H (70-110) mg/dL POC Glucose (mg/dL) (70-110) mg/dL Crossmatch 05/22/23 05/23/23 05/23/23 Range/Units 21:12 03:58 03:58 WBC 10.9 H (3.8-10.6) k/uL RBC 3.08 L (4.40-5.60) X 10*6/uL Hgb 7.9 L (13.0-17.0) g/dL Hct 24.8 L (39.6-50.0) % MCH (27.0-32.0) pg MCHC (32.0-37.0) g/dL RDW 16.2 H (11.5-14.5) % Immature Gran # (0.00-0.04) X 10*3/uL Neutrophils # 10.0 H (1.3-7.7) k/uL Lymphocytes # 0.4 L (0.90-5.00) X 10*3/uL Eosinophils # (0.04-0.35) X 10*3/uL Hypochromasia (manual) Microcytosis (manual) Acanthocytes (Spur) INR (<1.2) APTT (22.0-30.0) sec ABG pH 7.31 L (7.35-7.45) ABG pO2 >400 H (83-108) mmHg ABG O2 Saturation 100.0 H (94-97) % Sodium 136 L (137-145) mmol/L Chloride (98-107) mmol/L Carbon Dioxide (21.6-31.8) mmol/L BUN 27 H (9-20) mg/dL Glucose 114 H (70-110) mg/dL POC Glucose (mg/dL) (70-110) mg/dL Crossmatch 05/23/23 Range/Units 06:34 WBC (3.8-10.6) k/uL RBC (4.40-5.60) X 10*6/uL Hgb (13.0-17.0) g/dL Hct (39.6-50.0) % MCH (27.0-32.0) pg MCHC (32.0-37.0) g/dL RDW (11.5-14.5) % Immature Gran # (0.00-0.04) X 10*3/uL Neutrophils # (1.3-7.7) k/uL Lymphocytes # (0.90-5.00) X 10*3/uL Eosinophils # (0.04-0.35) X 10*3/uL Hypochromasia (manual) Microcytosis (manual) Acanthocytes (Spur) INR (<1.2) APTT (22.0-30.0) sec ABG pH (7.35-7.45) ABG pO2 (83-108) mmHg ABG O2 Saturation (94-97) % Sodium (137-145) mmol/L Chloride (98-107) mmol/L Carbon Dioxide (21.6-31.8) mmol/L BUN (9-20) mg/dL Glucose (70-110) mg/dL POC Glucose (mg/dL) 155 H (70-110) mg/dL Crossmatch Microbiology - Last 24 Hours (Table) 05/19/23 08:55 Blood Culture - Preliminary Blood 05/19/23 08:40 Blood Culture - Preliminary Blood
[2023-05-23] MEDS: CISATRACURIUM 200 MG in SODIUM CHLORIDE 0.9% 180 ML IV SCH (14:31)
--- NOTE | 2023-05-23 14:41 | P.PN ---
Subjective Progress Note Date: 05/23/23 Principal diagnosis: Static adenocarcinoma of the lung with hemoptysis 63-year-old male patient with metastatic pulmonary adenocarcinoma and the patient has a bulky tumor in his chest with extensive adenopathy involving the right hilum and the right paratracheal and subcarinal area the largest portions measuring 8 x 86.3 cm in size in the hilar area and 5.6 x 3.5 cm inside the subcarinal and infrahilar area. There is also lymphadenopathy involving the left hilum other smaller lymph nodes within the mediastinum and the patient has small pleural effusion right more than left along with compressive atelectatic changes and pleural-based nodules in the right and extensive groundglass changes in the left upper lobe with numerous nodular densities up to 16 x 13 mm in size. Smaller nodules also seen in the left lung in addition. In summary, the patient disease is metastatic as the patient also has extensive heterogeneous liver concerning for diffuse metastases and a stain is also enlarged and the patient has multiple soft tissue masses/lymphadenopathy in the upper abdomen. During his last admission the patient was also found to have a left occipital Enhancing lesion suspicious for [employer] metastases. The patient was admitted to the hospital on 05/12/2023 for shortness of breath and hemoptysis. His hemoptysis was attributed to his metastatic lung cancer and the patient was taken anticoagulation with warfarin and his INR was supratherapeutic. At that time, his INR was reversed, however, the patient in the going back on warfarin as the patient is a mechanical aortic valve and there is no reasonable alternatives to that and were targeting a titer INR control between 2 and 2.5. He was supposed to follow-up with oncology on outpatient basis. In addition oncology saw him during his hospital stay and thought that the brain lesion was small and there was no need for radiation this point in time. Following his discharge, the patient encounter ongoing hemoptysis which never stopped since his discharge. He came into the hospital for further advice. Total amount of blood was probably in the form of 10 mL overnight mixed with mucus. No blood clots. No worsening shortness of breath. His chronically dyspneic and is also having hypoxic respiratory failure maintained on oxygen. He has atrial fibrillation, coronary artery disease, and previous aortic valve replacement with a mechanical valve. I did see the patient during his last hospital stay and the patient was thought to be clinically stable for discharge to be followed up by oncology. Final decision on treatment for his lung cancer has not been made as the patient is awaiting PDL 1 and NGS analysis prior to quitting for any further treatment. He was supposed to be seen by medical oncology early next week. For now, the patient's echoes at 8.5, hemoglobin is 8.2 which is stable since his discharge. INR is at 2.7 with a PT of 27. BUN is a 50 with a creatinine of 1.01 and sodium level is 128. His oxygenation is stable at 3 L with a pulse ox of 99%. Computed tomography scan of the chest was again ordered The patient is seen today 05/20/2023 in follow-up on the regular medical floor. He is awake and alert in no acute distress. He denies any further hemoptysis. He has some right-sided chest discomfort on inhalation. Computed tomography scan of the chest from last evening shows overall significant progression of metastatic disease with extensive soft tissue metastasis/nodes in the neck and chest showing appreciable increase in size. There is worsening, lumbar med iastinal and hilar soft tissue masses/adenopathy resultant slightly worsened narrowing of branches of the right pulmonary artery and bronchi in the right hilum. New pulmonary emboli in the right lower lobe artery, segmental and sent segmental branches. Interval worsening of opacity in the right upper lobe, concerning for spread of tumor with possible superimposed pneumonitis. This obscures some the lung nodules evident before. There are also enlarging nodules in the superior segment of the right lower lobe. Small bilateral pleural effusions. Improved groundglass opacities and multiple nodules in the left lung, with residual nodularity. Worsening extensive upper abdominal metastatic disease, with significant enlargement of metastasis/nodes as above. Doppler of the lower extremity was negative for DVT. MRI of the brain reveals a 1.4 cm ring enhancing lesion with some mild vasogenic edema adjacent right frontal lobe. Suspicious for metastatic lesion. White count 8.2. Hemoglobin 7.8. INR 3.6. Sodium 134. Potassium 4.3. Bicarb 23. BUN 7. Creatinine 0.8. Glucose 99. He remains on DuoNeb inhalations, Symbicort antibiotics in the form of ceftriaxone. He is continued on Decadron 4 mg IVP every 6 hours. The patient is seen today May 21, 2023 and follow-up on the regular medical floor. He is sitting up in a chair at the bedside. Awake and alert in no acute distress. Denies any worsening shortness of breath, cough or congestion. No hemoptysis. He remains on DuoNeb ventilations, Symbicort, Decadron. Antibiotics in the form of ceftriaxone. INR 1.1. The plan is for PICC line placement and to be initiated on carboplatin today. He remains on a heparin dri p. The patient is seen today May 22, 2023 in follow-up on the regular medical floor. He is currently resting in bed. He did have some issues with agitation and combativeness requiring Haldol and soft restraints. tie cutter is at the bedside. He is maintaining good O2 saturation in the mid 90s on room air. He has been afebrile. Hemodynamically stable. His hemoglobin is 6.4 and he is receiving 1 unit of packed red blood cells. Platelets 298. White count 8.4. INR 1.2. Sodium 139. Potassium 4.3. Bicarb 21. BUN 12. Creatinine 0.7. Glucose 124. He remains on a heparin drip. Remains on antibiotics in the form of ceftriaxone. Decadron 4 mg IVP every 8 hours. Continued on DuoNeb ventilations, Symbicort. Normal saline at 75 MLS per hour. He did receive carboplatin and Alimta yesterday. Patient was reevaluated today on May 23/2024, patient decompensated this morning, he became extremely short of breath, patient was also becoming more and more combative, he was having more and more episodes of hemoptysis, and I recommended transferring the patient to the ICU. Patient was placed on multiple medications to calm him down, however he continued to deteriorate and he was developing more and more shortness of breath and more desaturations. Hence I was notified about the patient and I recommended immediate intubation. Patient was already transferred to the ICU at the time. Present patient is intubated and mechanically ventilated, he is on assist-control rate of 18 tidal volume 400 FiO2 35% and PEEP of 5 ABG showed a pO2 of more than 400 on 100% pCO2 44 pH of 7.31. Patient is on propofol 70 mcg/kg/min norepinephrine 0.04 mcg/kg/min Fentanyl at 1 mcg/kg/h he is also 1.9 normal saline at [facility], receiving ceftriaxone and receiving Decadron. Went ahead and performed bronchoscopy on this patient, there was no active bleeding noted, there is definitely a large tumor involving the apical segment of the right upper lobe, but no active bleeding in the right upper lobe was noted. Established a radial arterial line for hemodynamic monitoring, discussed his condition with the , and made aware of the severity of his illness, she seems to be reasonable, and she clearly stated to me that if his condition gets any worse and hopeless, she will definitely consider comfort care measures at that point. WBC count today is 10.9 hemoglobin 7.9. Follow-up ABG this morning showed a pO2 of 205 pCO2 34 pH of 7.47, this was on 50% FiO2 basic metabolic profile is normal renal profile is normal chest x-ray showed mild midlung infiltrate right side, possible atelectasis Objective - Vital Signs Vital signs: Vital Signs Temp 97.4 F L 05/23/23 12:00 Pulse 76 05/23/23 14:00 Resp 19 05/23/23 14:00 BP 95/51 05/23/23 14:00 Pulse Ox 98 05/23/23 14:00 FiO2 50 05/23/23 13:23 Intake & Output 05/22/23 05/23/23 05/23/23 18:59 06:59 18:59 Intake Total 487.449 418.302 275.017 Output Total 1450 2860 535 Balance -962.551 -2441.698 -259.983 Weight 76.4 kg 79.7 kg 79.7 kg Intake: IV 140 .9NS 140 Intake, IV Titration 177.449 418.302 135.017 Amount Dexmedetomidine/0.9% NaCl 128.289 (Pmx) 400 mcg In Empty Bag 1 bag @ 0.5 MCG/KG/HR 9.55 mls/hr IV .[id number] ROB Rx#:[id number] Heparin Sod,Pork in 0.45% 127.449 77.554 NaCl 25,000 unit In 0.45 % NaCl 1 250ml.bag @ 12 UNITS/KG/HR 9.036 mls/hr IV .Q24H ROB Rx#: [id number] Norepinephrine 8 mg In 11.802 Sodium Chloride 0.9% 250 ml @ 0.03 MCG/KG/MIN 4. 435 mls/hr IV .Q24H ROB Rx#:[id number] cefTRIAXone 2 gm In 50 Sodium Chloride 0.9% 50 ml @ 100 mls/hr IVPB Q24HR ROB Rx#:[id number] fentaNYL (PF). 1,000 mcg 19.1 51.061 In Sodium Chloride 0.9% 80 ml @ 0.5 MCG/KG/HR 3. 82 mls/hr IV .Q24H ROB Rx #:[id number] propofoL 1,000 mg In 181.557 83.956 Empty Bag 1 bag @ 15 MCG/ KG/MIN 6.876 mls/hr IV . [id number] ROB Rx#:[id number] Blood Product 310 Rc As-1 Unit 310 [id number] Output: Gastric Drainage 100 Urine 1450 2760 535 Straight 950 Other: Voiding Method Urinal Indwelling Catheter ABP, PAP, CO, CI - Last Documented Arterial Blood Pressure 99/44 - Exam General: Reveals 63-year-old white male intubated mechanically ventilated : Atraumatic, normocephalic endotracheal tube and orogastric tube are intact Skin: Skin is warm and dry and no rashes or lesions are noted. Eye: Pupils are equal, round and reactive to light, extra-ocular movements are intact; there is normal conjunctiva bilaterally. Ears, nose, mouth and throat: There are moist mucous membranes and no oral lesions. Neck: The neck is supple, there is no tenderness or JVD. Cardiovascular: There is a regular rate and rhythm. No murmur, rub or gallop is appreciated. Respiratory: Scattered rhonchi noted bilaterally Gastrointestinal: Soft, non-distended, non-tender abdomen without masses or organomegaly noted. There is no rebound or guarding present. Bowel sounds are unremarkable. Neurologic: Cannot assess patient is sedated on propofol and fentanyl Psychiatric: Could not assess. Skin: Evidence of psoriatic lesions and dry skin - Labs CBC & Chem 7: 05/23/23 03:58 05/23/23 03:58 Labs: Abnormal Lab Results - Last 24 Hours (Table) 05/22/23 05/22/23 05/22/23 Range/Units 11:55 13:56 19:16 WBC (3.8-10.6) k/uL RBC (4.30-5.90) m/uL Hgb (13.0-17.5) gm/dL Hct (39.0-53.0) % RDW (11.5-15.5) % Neutrophils # (1.3-7.7) k/uL Lymphocytes # (1.0-4.8) k/uL INR (<1.2) APTT 59.3 H (22.0-30.0) sec ABG pH (7.35-7.45) ABG pCO2 (35-45) mmHg ABG pO2 (83-108) mmHg ABG Total CO2 (19-24) mmol/L ABG O2 Saturation (94-97) % Sodium (137-145) mmol/L Chloride (98-107) mmol/L Carbon Dioxide (22-30) mmol/L BUN (9-20) mg/dL Glucose (74-99) mg/dL POC Glucose (mg/dL) 213 H (70-110) mg/dL Crossmatch See Detail 05/22/23 05/22/23 05/22/23 Range/Units 20:13 21:00 21:12 WBC 20.1 H (3.8-10.6) k/uL RBC 3.28 L (4.30-5.90) m/uL Hgb 8.5 L (13.0-17.5) gm/dL Hct 27.0 L (39.0-53.0) % RDW 16.0 H (11.5-15.5) % Neutrophils # 18.6 H (1.3-7.7) k/uL Lymphocytes # 0.5 L (1.0-4.8) k/uL INR (<1.2) APTT (22.0-30.0) sec ABG pH (7.35-7.45) ABG pCO2 (35-45) mmHg ABG pO2 (83-108) mmHg ABG Total CO2 (19-24) mmol/L ABG O2 Saturation (94-97) % Sodium (137-145) mmol/L Chloride 109 H (98-107) mmol/L Carbon Dioxide 18 L (22-30) mmol/L BUN 25 H (9-20) mg/dL Glucose 131 H (74-99) mg/dL POC Glucose (mg/dL) 154 H (70-110) mg/dL Crossmatch 05/22/23 05/22/23 05/23/23 Range/Units 21:12 21:12 03:58 WBC 10.9 H (3.8-10.6) k/uL RBC 3.08 L (4.30-5.90) m/uL Hgb 7.9 L (13.0-17.5) gm/dL Hct 24.8 L (39.0-53.0) % RDW 16.2 H (11.5-15.5) % Neutrophils # 10.0 H (1.3-7.7) k/uL Lymphocytes # 0.4 L (1.0-4.8) k/uL INR 1.2 H (<1.2) APTT (22.0-30.0) sec ABG pH 7.31 L (7.35-7.45) ABG pCO2 (35-45) mmHg ABG pO2 >400 H (83-108) mmHg ABG Total CO2 (19-24) mmol/L ABG O2 Saturation 100.0 H (94-97) % Sodium (137-145) mmol/L Chloride (98-107) mmol/L Carbon Dioxide (22-30) mmol/L BUN (9-20) mg/dL Glucose (74-99) mg/dL POC Glucose (mg/dL) (70-110) mg/dL Crossmatch 05/23/23 05/23/23 05/23/23 Range/Units 03:58 04:15 06:34 WBC (3.8-10.6) k/uL RBC (4.30-5.90) m/uL Hgb (13.0-17.5) gm/dL Hct (39.0-53.0) % RDW (11.5-15.5) % Neutrophils # (1.3-7.7) k/uL Lymphocytes # (1.0-4.8) k/uL INR (<1.2) APTT (22.0-30.0) sec ABG pH 7.47 H (7.35-7.45) ABG pCO2 34 L (35-45) mmHg ABG pO2 205 H (83-108) mmHg ABG Total CO2 26 H (19-24) mmol/L ABG O2 Saturation 100.0 H (94-97) % Sodium 136 L (137-145) mmol/L Chloride (98-107) mmol/L Carbon Dioxide (22-30) mmol/L BUN 27 H (9-20) mg/dL Glucose 114 H (74-99) mg/dL POC Glucose (mg/dL) 155 H (70-110) mg/dL Crossmatch Microbiology - Last 24 Hours (Table) 05/19/23 08:55 Blood Culture - Preliminary Blood 05/19/23 08:40 Blood Culture - Preliminary Blood Assessment and Plan Assessment: Impression: Acute hypoxic respiratory failure secondary to metastatic lung cancer and recurrent episodes of hemoptysis, patient was intubated and mechanically ventil ated on 05/23/2023 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 Altered mental status as noted above Acute pulmonary emboli, patient was on Coumadin which is presently on hold but will have to restart Coumadin Acute on chronic anemia patient required 1 unit of packed RBCs since admission Chronic atrial fibrillation, maintained on Coumadin History of mechanical aortic valve placed in 2019 patient had previous history of bicuspid aortic valve History of coronary artery disease and previous CABG History of LV dysfunction and recurrent episodes of systolic congestive heart failure Benign essential hypertension Dyslipidemia Psoriasis History of traumatic brain injury Commendation: Continue ventilatory support Continue hemodynamic support Continue sedation patient is not ready for any weaning at this point. Continue to hold Coumadin for now, will place the patient on Lovenox in the next 24 hours. Bronchoscopy was performed please refer to the operative report no evidence of active bleeding noted during the bronchoscopy. Continue empiric antibiotics. Chemotherapy as per oncology on the case, patient was started on carboplatin and Alimta Patient is critically ill. was updated as his condition and may eventually consider comfort care depending on his prognosis and how he responds to treatment. Critical care time is over 30 minutes not including the time spent on procedures Time with Patient: Greater than 30
--- NOTE | 2023-05-23 15:11 | P.PN ---
Subjective Progress Note Date: 05/23/23 Principal diagnosis: Hemoptysis, lung adenocarcinoma In follow-up today patient is seen in the intensive care unit, sedated and ventilated. Patient's behavior has been very erratic, he has been extremely emotional, currently he is requiring significant amounts of sedatives to remain calm on ventilation. He has had a bronchoscopy. and daughter are at the bedside. Objective - Vital Signs Vital signs: Vital Signs Temp 97.4 F L 05/23/23 12:00 Pulse 76 05/23/23 14:00 Resp 19 05/23/23 14:00 BP 95/51 05/23/23 14:00 Pulse Ox 98 05/23/23 14:00 FiO2 50 05/23/23 13:23 Intake & Output 05/22/23 05/23/23 05/23/23 18:59 06:59 18:59 Intake Total 487.449 418.302 295.017 Output Total 1450 2860 635 Balance -962.551 -2441.698 -339.983 Weight 76.4 kg 79.7 kg 79.7 kg Intake: IV 160 .9NS 160 Intake, IV Titration 177.449 418.302 135.017 Amount Dexmedetomidine/0.9% NaCl 128.289 (Pmx) 400 mcg In Empty Bag 1 bag @ 0.5 MCG/KG/HR 9.55 mls/hr IV .[id number] ORB Rx#:[id number] Heparin Sod,Pork in 0.45% 127.449 77.554 NaCl 25,000 unit In 0.45 % NaCl 1 250ml.bag @ 12 UNITS/KG/HR 9.036 mls/hr IV .Q24H ROB Rx#: [id number] Norepinephrine 8 mg In 11.802 Sodium Chloride 0.9% 250 ml @ 0.03 MCG/KG/MIN 4. 435 mls/hr IV .Q24H ROB Rx#:[id number] cefTRIAXone 2 gm In 50 Sodium Chloride 0.9% 50 ml @ 100 mls/hr IVPB Q24HR ROB Rx#:[id number] fentaNYL (PF). 1,000 mcg 19.1 51.061 In Sodium Chloride 0.9% 80 ml @ 0.5 MCG/KG/HR 3. 82 mls/hr IV .Q24H ROB Rx #:[id number] propofoL 1,000 mg In 181.557 83.956 Empty Bag 1 bag @ 15 MCG/ KG/MIN 6.876 mls/hr IV . [id number] [facility] Rx#:[id number] Blood Product 310 Rc As-1 Unit 310 [id number] Output: Gastric Drainage 100 Urine 1450 2760 635 Straight 950 Other: Voiding Method Urinal Indwelling Catheter ABP, PAP, CO, CI - Last Documented Arterial Blood Pressure 99/44 - Constitutional General appearance: Present: mild distress, thin - EENT EENT Comment(s): Pupils are pinpoint but round and reactive to light Eyes: Present: anicteric sclerae - Cardiovascular Rhythm: irregularly irregular - Peripheral edema leg Peripheral Edema: bilateral: None - Gastrointestinal General gastrointestinal: Present: soft - Psychiatric Psychiatric: Absent: A&O x's 3, appropriate affect, intact judgment & insight - Labs CBC & Chem 7: 05/23/23 03:58 05/23/23 03:58 Labs: Abnormal Lab Results - Last 24 Hours (Table) 05/22/23 05/22/23 05/22/23 Range/Units 11:55 19:16 20:13 WBC (3.8-10.6) k/uL RBC (4.30-5.90) m/uL Hgb (13.0-17.5) gm/dL Hct (39.0-53.0) % RDW (11.5-15.5) % Neutrophils # (1.3-7.7) k/uL Lymphocytes # (1.0-4.8) k/uL INR (<1.2) ABG pH (7.35-7.45) ABG pCO2 (35-45) mmHg ABG pO2 (83-108) mmHg ABG Total CO2 (19-24) mmol/L ABG O2 Saturation (94-97) % Sodium (137-145) mmol/L Chloride (98-107) mmol/L Carbon Dioxide (22-30) mmol/L BUN (9-20) mg/dL Glucose (74-99) mg/dL POC Glucose (mg/dL) 213 H 154 H (70-110) mg/dL Crossmatch See Detail 05/22/23 05/22/23 05/22/23 Range/Units 21:00 21:12 21:12 WBC 20.1 H (3.8-10.6) k/uL RBC 3.28 L (4.30-5.90) m/uL Hgb 8.5 L (13.0-17.5) gm/dL Hct 27.0 L (39.0-53.0) % RDW 16.0 H (11.5-15.5) % Neutrophils # 18.6 H (1.3-7.7) k/uL Lymphocytes # 0.5 L (1.0-4.8) k/uL INR 1.2 H (<1.2) ABG pH (7.35-7.45) ABG pCO2 (35-45) mmHg ABG pO2 (83-108) mmHg ABG Total CO2 (19-24) mmol/L ABG O2 Saturation (94-97) % Sodium (137-145) mmol/L Chloride 109 H (98-107) mmol/L Carbon Dioxide 18 L (22-30) mmol/L BUN 25 H (9-20) mg/dL Glucose 131 H (74-99) mg/dL POC Glucose (mg/dL) (70-110) mg/dL Crossmatch 05/22/23 05/23/23 05/23/23 Range/Units 21:12 03:58 03:58 WBC 10.9 H (3.8-10.6) k/uL RBC 3.08 L (4.30-5.90) m/uL Hgb 7.9 L (13.0-17.5) gm/dL Hct 24.8 L (39.0-53.0) % RDW 16.2 H (11.5-15.5) % Neutrophils # 10.0 H (1.3-7.7) k/uL Lymphocytes # 0.4 L (1.0-4.8) k/uL INR (<1.2) ABG pH 7.31 L (7.35-7.45) ABG pCO2 (35-45) mmHg ABG pO2 >400 H (83-108) mmHg ABG Total CO2 (19-24) mmol/L ABG O2 Saturation 100.0 H (94-97) % Sodium 136 L (137-145) mmol/L Chloride (98-107) mmol/L Carbon Dioxide (22-30) mmol/L BUN 27 H (9-20) mg/dL Glucose 114 H (74-99) mg/dL POC Glucose (mg/dL) (70-110) mg/dL Crossmatch 05/23/23 05/23/23 Range/Units 04:15 06:34 WBC (3.8-10.6) k/uL RBC (4.30-5.90) m/uL Hgb (13.0-17.5) gm/dL Hct (39.0-53.0) % RDW (11.5-15.5) % Neutrophils # (1.3-7.7) k/uL Lymphocytes # (1.0-4.8) k/uL INR (<1.2) ABG pH 7.47 H (7.35-7.45) ABG pCO2 34 L (35-45) mmHg ABG pO2 205 H (83-108) mmHg ABG Total CO2 26 H (19-24) mmol/L ABG O2 Saturation 100.0 H (94-97) % Sodium (137-145) mmol/L Chloride (98-107) mmol/L Carbon Dioxide (22-30) mmol/L BUN (9-20) mg/dL Glucose (74-99) mg/dL POC Glucose (mg/dL) 155 H (70-110) mg/dL Crossmatch Microbiology - Last 24 Hours (Table) 05/19/23 08:55 Blood Culture - Preliminary Blood 05/19/23 08:40 Blood Culture - Preliminary Blood Assessment and Plan (1) Hemoptysis Current Visit: Yes Status: Acute Priority: High Code(s): R04.2 - HEMOPTYSIS SNOMED Code(s): 56406151 (2) Pulmonary embolism Current Visit: Yes Status: Acute Priority: High Code(s): I26.99 - OTHER PULMONARY EMBOLISM WITHOUT ACUTE COR PULMONALE SNOMED Code(s): 35215718 (3) Metastatic non-small cell lung cancer Current Visit: Yes Status: Acute Code(s): C34.90 - MALIGNANT NEOPLASM OF UNSP PART OF UNSP BRONCHUS OR LUNG SNOMED Code(s): 830714910 (4) Supratherapeutic INR Current Visit: Yes Status: Resolved Priority: High Code(s): R79.1 - ABNORMAL COAGULATION PROFILE SNOMED Code(s): 961101932 Plan: PE -New Rt lung PE, BLE doppler for baseline-neg for DVT -[place] to be provoked 2/2 malignancy, recent multiple hospitalizations and holding of coumadin last week because of hemoptysis. -Duration of anticoagulation for a provoked PE is irrelevant. The patient has an artificial heart valve and he needs to be on full dose anticoagulation indefinitely. Artificial heart valve -Patient previously on Coumadin. INR regulation is challenging due to changes in oral intake, malignancy in the GI tract. -Coumadin reversed. Low intensity heparin drip started. No reported hemoptysis -Pending Cardiology recommendations for alternative anticoagulation to coumadin for artificial heart valve (lovenox?) AMS -Repeat MRI brain-mood and behavioral changes-showing several lesions and vasogenic edema. Dexamethasone IV ordered. PPI BID. -Pt continuing to have abnormal behaviors overnight. He then began experiencing significant difficulty in breathing and hemoptysis, he was taken to the intensive care unit and intubated. -Pt behavior symptoms did not improve with steroids, as would be expected if changes were because of brain mets and vasogenic edema. Concern if steroids are contributing so, reduced frequency yesterday but, there was no significant change. Xanax changed to IV ativan yesterday. IM adjusted freq of pain meds. Unfortunately, no improvements, patient is now in the ICU intubated and sedated, in fact, requiring large amounts of sedatives -Pending review of case from Anesthesiology. Requested LP under sedation for CSF specimen to be sent for cytology. Concerns for leptomeningeal metastasis. Hemoptysis -recurrent -bronchoscopy performed, reported old blood in the mucosal of the airways, right upper lobe evidence of a large tumor, apical segment totally occluded with the tumor. -Low intensity heparin drip held. -Pending Cardiology recs if lovenox can be used Non-small cell adenocarcinoma, non-squamous, metastatic disease, rapid progression -Pt 1st presented on 04/18 and has since been inpt 2 additional times in the last 3 weeks. He was unable to stay out of the hospital long enough to start treatment. -MRI brain is showing 1.4 cm ring enhancing lesion-3 weeks after prior MRI showing of a 9 mm lesion with no ring enhancement. CT chest is reports significant progression of disease in just 3 weeks. -1st cycle of carbo/alimta 2 days ago. Next cycle will not be due for 19 days. -Cont use of supportive medications as needed based on reported symptoms -Labs ordered daily Pain and anxiety from diagnosis -Medication adjustments. -Medications for prevention of narcotic-induced constipation ordered Reviewed all pt and daughters concerns Will see how the patient does over the next day or 2. Maybe, be able to obtain CSF fluid for analysis. Based on patient's progress, will see what, if any ch anges, to the plan of care need to be made. Attests: I have seen and examined pt, performed H&P, developed impression and plan of care. Discussed with dictator. Agree with documentation, dictated as a scribe.
[2023-05-23] MEDS: ARTIFICIAL TEARS-HYPROMELLOSE DROPS 15 ML BTL BOTH EYES SCH (15:21)
[2023-05-23] MEDS: PIPERACILLIN-TAZOBACTAM 3.375 GM in SODIUM CHLORIDE 0.9% 100 ML IVPB SCH (15:25)
[2023-05-24 01:00] LABS: Glucose,Whole Blood 145 mg/dL (70-110)
[2023-05-24 05:16] LABS: ABG Base Excess 4.2 mmol/L; ABG HCO3 31 mmol/L (21-25); ABG Oxygen Saturation 98.7 % (94-97); ABG PCO2 64 mmHg (35-45); ABG PH 7.29 (7.35-7.45); ABG PO2 106 mmHg (83-108); ABG TCO2 33 mmol/L (19-24); Allen Test Performed? Yes
[2023-05-24 05:34] LABS: Basophils % (A) 0 %; Eosinophils % (A) 0 %; HCT 25.2 % (39.0-53.0); HGB 7.8 gm/dL (13.0-17.5); Hypochromasia Marked; Lymphocytes # (A) 0.2 k/uL (1.0-4.8); Lymphocytes % (A) 3 %; MCH 25.6 pg (25.0-35.0); MCHC 30.9 g/dL (31.0-37.0); MCV 82.7 fL (80.0-100.0); Mean Platelet Volume 9.6; Monocytes # (A) 0.2 k/uL (0-1.0); Monocytes % (A) 2 %; Neutrophils # (A) 7.6 k/uL (1.3-7.7); Neutrophils % (A) 95 %; Platelet Count 283 k/uL (150-450); Poikilocytosis Moderate; RBC 3.05 m/uL (4.30-5.90); RDW 15.9 % (11.5-15.5)
[2023-05-24 05:47] LABS: ALT 18 U/L (4-49); AST 17 U/L (17-59); African American GFR (CKD) >90 (>60 ml/min/1.73 sqM); Albumin 2.9 g/dL (3.5-5.0); Alkaline Phosphatase 58 U/L (38-126); Anion Gap 3 mmol/L; Blood Urea Nitrogen 19 mg/dL (9-20); Calcium 8.9 mg/dL (8.4-10.2); Carbon Dioxide 30 mmol/L (22-30); Chloride 105 mmol/L (98-107); Glucose 132 mg/dL (74-99); Magnesium 2.3 mg/dL (1.6-2.3); Non-African American GFR(CKD) >90 (>60 ml/min/1.73 sqM); Potassium 5.1 mmol/L (3.5-5.1); Sodium 138 mmol/L (137-145); Total Bilirubin 0.5 mg/dL (0.2-1.3); Total Protein 5.4 g/dL (6.3-8.2)
[2023-05-24 06:36] LABS: Glucose,Whole Blood 158 mg/dL (70-110)
--- NOTE | 2023-05-24 08:08 | XR ---
EXAMINATION TYPE: XR chest 1V portable DATE OF EXAM: 05/24/2023 COMPARISON: 05/23/2023 INDICATION: Tube placement TECHNIQUE: Single frontal view of the chest is obtained. FINDINGS: The heart size is normal. The pulmonary vasculature is normal. There is diffuse increased lung opacity through the right lung. Correlate for pneumonia. Follow-up is recommended. Endotracheal tube tip is above the maritza. Nasogastric tube transverses the thorax with the tip in le ft upper quadrant of the abdomen. Left-sided PICC line tip is in the proximal right atrium. IMPRESSION: 1. Diffuse right lung infiltrate. Continued follow-up for pneumonia is recommended. 2. Lines and catheters discussed above.
[2023-05-24] MEDS: PANTOPRAZOLE 40 MG/10 ML VIAL IVP SCH (09:44)
[2023-05-24 11:56] LABS: Glucose,Whole Blood 165 mg/dL (70-110)
--- NOTE | 2023-05-24 13:20 | P.PN ---
Subjective Progress Note Date: 05/24/23 This is a 30-year-old male who comes in with complaints of hemoptysis. Patient had chest CT showing progression of meta static lymph nodes in the neck chest and upper abdomen. There is also concern for bronchial invasion and with a right upper lobe infiltrate. He was admitted to the hospital with a consult placed to hematology with plans to undergo induction chemotherapy and radiation. Patient will have brain MRI completed today. He also reports not having a bowel movement. Blood work today shows white count 8.21, hemoglobin 7.8, sodium 134, BUN 7.1, creatinine 0.8. 05/21/2023 Patient is monitored to the medical floor he is being followed closely by oncology with plans for induction chemotherapy today. Not yet had a bowel movement but had not received MiraLAX we will try that first before giving an enema or stronger laxative. Abdomen is softer today and he does have positive normoactive bowel sounds throughout. Patient had a PICC line inserted today. Brain MRI shows a 1.4 cm ring-enhancing lesion with some mild vasogenic edema adjacent to the right frontal lobe findings are concerning for metastatic lesion he has been started on IV dexamethasone by oncology. Recommendations were made to hold warfarin at this time and INR was reversed patient was given the 5 mg dose of vitamin K. His INR today is 1.1 and he has been initiated on an IV heparin drip at this time. 05/22/2023 Patient is evaluated today resting in bed he is currently in 2-point restraints his is sitting at the bedside. Patient did receive his first dose of IV chemotherapy yesterday he is also on Decadron for the vasogenic edema. He was significantly agitated last night he did get out of bed fell in the hallway he was restrained and did require sedation to calm down. We would currently recommend to stop the Xanax decrease the frequency of the oxycodone and avoid Dilaudid if possible. Patient will be given Seroquel at at bedtime and also daily as needed for acute agitation. Patient continues on a course of IV ceftriaxone. He is also on IV heparin with warfarin being held. Status [facility] his labs today are showing a hemoglobin of 7.4, platelet count of 298, white count of 8.41. His electrolytes are within normal limits. 05/23. Patient seen and examined. Patient currently intubated and sedated. Labs at this morning showed WBC 10.9, hemoglobin 7.9, platelet count 297 05/24. Patient seen and examined. Continues to be intubated. Lab work done showed WBC 8, hemoglobin 7.8, platelet count 283, sodium 1:30, potassium 5.1, magnesium 2.3, total bilirubin 0.5, REVIEW OF SYSTEMS: Currently intubated and sedated PHYSICAL EXAMINATION: GENERAL: The patient is intubated and sedated HEENT: Pupils are round and equally reacting to light. No pharyngeal erythema. No thyromegaly. CARDIOVASCULAR: S1 and S2 present. No murmurs, rubs, or gallops. PULMONARY: Coarse Breath sounds bilaterally, no wheezing or crackles. ABDOMEN: Soft, nontender, nondistended, normoactive bowel sounds. No palpable organomegaly. MUSCULOSKELETAL: No joint swelling or deformity. EXTREMITIES: No cyanosis, clubbing, or pedal edema. NEUROLOGICAL: Intubated and sedated SKIN: No rashes. Assessment and plan Episodic hemoptysis due to his underlying lung cancer probably invading the right upper lobe bronchus Metastatic adenocarcinoma of the lung and diagnosis was made by biopsy of the exiting mass and intestinal mass. The patient has B[employer]OR[employer] metastases. Brain metastases Altered mental status secondary to above Acute pulmonary emboli secondary to above, currently on heparin drip Acute on chronic anemia Chronic atrial fibrillation Mechanical aortic valve placed in 2019 Coronary artery disease bypass surgery, mild nonobstructive CAD current cardiac catheterization from [facility] 2019 CHF with an underlying impaired systolic heart failure with an ejection fraction of 35-40% Hypertension Hyperlipidemia Psoriasis Previous history of traumatic brain injury Monitor vital signs Monitor CBC Monitor CMP Continue vent management per ICU Aggressive bronchopulmonary hygiene continue telemetry monitoring, Continue on metoprolol. Continue pharmacy dose heparin Continue IV Precedex and propofol Continue IV Zosyn Continue tube feeding Repeat MRI brain-mood and behavioral changes-showing several lesions and vasog enic edema. Currently on IV Decadron 4 mg every 8 hourly. Continue IV Protonix Patient started on chemotherapy with carboplatin and Alimta on 05/21 Pulmonology following Hematology oncology following Labs and medication were reviewed.. Continue same treatment. Continue with symptomatic treatment. Resume home medication. Monitor labs and vitals. DVT and GI prophylaxis. Further recommendations as per clinical course of the patient Dictation was produced using [employer] dictation software. please excuse any grammatical, word or spelling errors. Objective - Vital Signs Vital signs: Vital Signs Temp 98.3 F 05/24/23 08:00 Pulse 96 05/24/23 08:42 Resp 18 05/24/23 08:00 BP 97/53 05/24/23 00:00 Pulse Ox 97 05/24/23 08:00 FiO2 35 05/24/23 08:14 Intake & Output 05/23/23 05/24/23 05/24/23 18:59 06:59 18:59 Intake Total 479.009 3958.316 274.724 Output Total 900 1410 470 Balance -251.843 -334.684 -195.276 Weight 79.7 kg Intake: IV 261 253 23 .9NS 240 220 20 .9NS Pressure Bag 21 33 3 Intake, IV Titration 337.157 552.316 201.724 Amount Cisatracurium 200 mg In 2.311 167.131 Sodium Chloride 0.9% 180 ml @ 1 MCG/KG/MIN 4.782 mls/hr IV .Q24H ROB Rx#: [id number] Norepinephrine 8 mg In 92.666 34.593 Sodium Chloride 0.9% 250 ml @ 0.03 MCG/KG/MIN 4. 435 mls/hr IV .Q24H ROB Rx#:[id number] fentaNYL (PF). 1,000 mcg 150.890 169.269 In Sodium Chloride 0.9% 80 ml @ 0.5 MCG/KG/HR 3. 82 mls/hr IV .Q24H ROB Rx #:[id number] propofoL 1,000 mg In 183.956 290.381 Empty Bag 1 bag @ 15 MCG/ KG/MIN 6.876 mls/hr IV . [id number] ROB Rx#:[id number] Tube Feeding 50 210 20 Other 60 30 Output: Urine 900 1410 470 Other: Voiding Method Indwelling Catheter Indwelling Catheter ABP, PAP, CO, CI - Last Documented Arterial Blood Pressure 104/52 - Labs CBC & Chem 7: 05/24/23 05:20 05/24/23 05:20 Labs: Abnormal Lab Results - Last 24 Hours (Table) 05/23/23 05/24/23 05/24/23 Range/Units 04:15 00:58 05:13 RBC (4.30-5.90) m/uL Hgb (13.0-17.5) gm/dL Hct (39.0-53.0) % MCHC (31.0-37.0) g/dL RDW (11.5-15.5) % Lymphocytes # (1.0-4.8) k/uL ABG pH 7.47 H 7.29 L (7.35-7.45) ABG pCO2 34 L 64 H (35-45) mmHg ABG pO2 205 H (83-108) mmHg ABG HCO3 31 H (21-25) mmol/L ABG Total CO2 26 H 33 H (19-24) mmol/L ABG O2 Saturation 100.0 H 98.7 H (94-97) % Creatinine (0.66-1.25) mg/dL Glucose (74-99) mg/dL POC Glucose (mg/dL) 145 H (70-110) mg/dL Total Protein (6.3-8.2) g/dL Albumin (3.5-5.0) g/dL 05/24/23 05/24/23 05/24/23 Range/Units 05:20 05:20 06:34 RBC 3.05 L (4.30-5.90) m/uL Hgb 7.8 L (13.0-17.5) gm/dL Hct 25.2 L (39.0-53.0) % MCHC 30.9 L (31.0-37.0) g/dL RDW 15.9 H (11.5-15.5) % Lymphocytes # 0.2 L (1.0-4.8) k/uL ABG pH (7.35-7.45) ABG pCO2 (35-45) mmHg ABG pO2 (83-108) mmHg ABG HCO3 (21-25) mmol/L ABG Total CO2 (19-24) mmol/L ABG O2 Saturation (94-97) % Creatinine 0.65 L (0.66-1.25) mg/dL Glucose 132 H (74-99) mg/dL POC Glucose (mg/dL) 158 H (70-110) mg/dL Total Protein 5.4 L (6.3-8.2) g/dL Albumin 2.9 L (3.5-5.0) g/dL Microbiology - Last 24 Hours (Table) 05/23/23 11:40 Gram Stain - Preliminary Bronchial Washings - Random
[2023-05-24] MEDS: CISATRACURIUM 2 MG/ML 5 ML VIAL IV ONE ×2 (13:44→13:46)
--- NOTE | 2023-05-24 14:12 | P.PAINCN ---
History of Present Illness - Reason for Consult Consult date: 05/24/23 Pain management has been requested consult for lumbar puncture. - History of Present Illness The patient is intubated on vent. Diagnosed with metastatic lung cancer. On sedation and noncommunicative. Had a discussion with patient's and other family members regarding diagnostic lumbar puncture and collection of cere brospinal fluid as requested by oncology service. Past Medical History Past Medical History: Atrial Fibrillation, Coronary Artery Disease (CAD), Cancer, Heart Failure, Hyperlipidemia, Hypertension, Skin Disorder Additional Past Medical History / Comment(s): chronic lower back pain w/ Lt. sciatica, TBI, hiatal hernia, cardiomyopathy, psoriasis, CHF - had a recent script for Jardiance and states, "I'm not taking it, I saw it on t.v, all the side effects." diagnosed with lung cancer 03/2023 History of Any Multi-Drug Resistant Organisms: None Reported Past Surgical History: Cardiac Valve Replacement, Coronary Bypass/CABG Additional Past Surgical History / Comment(s): Rt. knee arthroscopy, jaw/facial reconstruction, aortic valve replacement w/ on-x mechanical valve & aortic root repair 2019 Past Anesthesia/Blood Transfusion Reactions: No Reported Reaction Past Psychological History: Anxiety, PTSD Additional Psychological History / Comment(s): describes worsening anxiety rece ntly w/ health issues and bills, PTSD from - also recently stopped xanax, stopped drinking January 2023 Smoking Status: Former smoker Past Alcohol Use History: None Reported Additional Past Alcohol Use History / Comment(s): Per patient and his , has not had a drink since Feb 2023 Past Drug Use History: None Reported Additional Drug Use History / Comment(s): Denies current Mariuana use. Quit Feb 2023. - Past Family History Mother Family Medical History: No Reported History Father Additional Family Medical History / Comment(s): Passed when patient was a child possibly related to heart disease. Medications and Allergies Home Medications Medication Instructions Recorded Confirmed Type Aspirin [Children's Aspirin] 81 mg PO DAILY@0800 11/11/22 05/19/23 History Albuterol Inhaler [Ventolin Hfa 2 puff INHALATION RT-Q6H PRN 01/29/23 05/19/23 History Inhaler] Baclofen 5 mg PO BID@0800,1300 05/11/23 05/19/23 History Furosemide [Lasix] 40 mg PO DAILY@0800 05/11/23 05/19/23 History Metoprolol Tartrate [Lopressor] 50 mg PO BID@08,199905/11/23 05/19/23 History Pantoprazole [Protonix] 40 mg PO DAILY@0800 05/11/23 05/19/23 History Prochlorperazine [Compazine] 10 mg PO DAILY@79905/11/23 05/19/23 History Warfarin [Coumadin] 7.5 mg PO DAILY@199905/11/23 05/19/23 History fentaNYL 25MCG/HR PATCH [Duragesic 1 patch TOPICAL Q72H 05/11/23 05/19/23 History 25MCG/HR] Budesonide-Formot 160-4.5 Mcg 2 puff INHALATION RT-BID 30 Days 05/15/23 05/19/23 Rx [Symbicort 160-4.5 Mcg Inhaler] #1 each Folic Acid 1 mg PO DAILY 30 Days #30 tab 05/15/23 05/19/23 Rx HYDROcodone/APAP 10-325MG [[place] 1 tab PO Q4HR PRN 05/19/23 05/19/23 History 10-325] oxyCODONE HCL [oxyCODONE HCL (IR)] 5 mg PO Q6H PRN 05/19/23 05/19/23 History Allergies Allergy/AdvReac Type Severity Reaction Status Date / Time acetaminophen Allergy Rash/Hives Verified 05/19/23 11:20 [From Darvocet-N 100] propoxyphene Allergy Rash/Hives Verified 05/19/23 11:20 [From Darvocet-N 100] amitriptyline [From Elavil] AdvReac NIGHTMARES Verified 05/19/23 11:20 hydralazine AdvReac MIGRAINES Verified 05/19/23 11:20 naproxen [From Naprosyn] AdvReac Nausea Verified 05/19/23 11:20 Physical Exam Vitals: Vital Signs Temp Pulse Resp BP Pulse Ox FiO2 05/24/23 13:00 88 22 98 05/24/23 12:30 94 22 98 05/24/23 12:03 101 H 05/24/23 12:00 98.3 F 105 H 22 98 40 05/24/23 11:55 99 01/26/24 11:54 35 05/24/23 11:30 98 22 97 05/24/23 11:00 103 H 22 97 05/24/23 10:31 91 22 97 05/24/23 10:30 93 17 98 05/24/23 10:29 90 17 96 05/24/23 10:28 108 H 22 96 05/24/23 10:27 110 H 22 96 05/24/23 10:26 107 H 22 96 05/24/23 10:21 112 H 22 96 05/24/23 10:15 105 H 22 97 05/24/23 10:00 96 22 98 05/24/23 09:30 101 H 22 97 05/24/23 09:15 116 H 16 97 05/24/23 09:00 106 H 19 97 05/24/23 08:45 118 H 18 97 05/24/23 08:42 96 05/24/23 08:30 98 18 97 05/24/23 08:28 94 05/24/23 08:27 94 05/24/23 08:14 35 05/24/23 08:13 92 05/24/23 08:00 98.3 F 100 18 97 40 05/24/23 07:30 98.3 F 93 18 97 35 05/24/23 07:00 101 H 18 97 05/24/23 06:45 94 18 97 05/24/23 06:30 95 18 96 05/24/23 06:15 97 18 96 05/24/23 06:00 93 18 96 05/24/23 05:45 93 18 96 05/24/23 05:30 93 18 96 05/24/23 05:15 87 18 97 05/24/23 05:00 87 18 96 05/24/23 04:45 96 18 96 05/24/23 04:30 90 18 97 05/24/23 04:15 103 H 18 96 05/24/23 04:00 97.5 F L 83 18 97 35 05/24/23 03:45 91 18 100 05/24/23 03:38 35 05/24/23 03:30 96 14 98 05/24/23 03:15 100 18 98 05/24/23 03:00 99 18 96 05/24/23 02:45 102 H 18 97 05/24/23 02:30 104 H 18 97 01/26/24 02:15 106 H 18 97 05/24/23 02:00 104 H 18 97 05/24/23 01:45 103 H 18 97 05/24/23 01:30 96 14 97 05/24/23 01:15 91 18 97 05/24/23 01:00 95 19 97 05/24/23 00:45 96 18 97 05/24/23 00:30 93 19 97 05/24/23 00:20 35 05/24/23 00:15 94 18 97 05/24/23 00:00 97.9 F 96 18 97/53 97 40 05/23/23 23:45 96 18 97 05/23/23 23:30 104 H 18 97 05/23/23 23:15 106 H 18 97 05/23/23 23:00 105 H 18 97 05/23/23 22:45 111 H 18 97 05/23/23 22:30 108 H 18 97 05/23/23 22:15 96 18 97 05/23/23 22:00 98 19 97 05/23/23 21:45 98 18 97 05/23/23 21:30 97 18 97 05/23/23 21:15 102 H 18 97 05/23/23 21:00 98 18 97 05/23/23 20:45 86 20 97 05/23/23 20:35 92 05/23/23 20:30 93 18 97 05/23/23 20:26 92 05/23/23 20:25 92 05/23/23 20:15 85 19 97/53 99 05/23/23 20:12 90 05/23/23 20:10 35 05/23/23 20:00 80 18 102/55 92 L 40 05/23/23 19:45 86 18 102/55 97 05/23/23 19:30 87 18 97 05/23/23 19:15 91 18 102/55 97 05/23/23 19:00 87 18 97 05/23/23 18:00 89 18 96 05/23/23 17:00 78 18 96 05/23/23 16:06 88 05/23/23 16:00 97.4 F L 72 23 97 40 05/23/23 15:56 85 35 05/23/23 15:00 73 18 97 Intake and Output 05/23/23 05/24/2324 22:59 06:59 14:59 Intake Total 577.779 731.677 900.636 Output Total 176 345 1981 Balance -112.221 -253.323 -194.364 Intake: IV 161 184 118 .9NS 140 160 100 .9NS Pressure Bag 24 18 Intake, IV Titration 346.779 307.677 552.636 Amount Cisatracurium 200 mg In 2.311 167.131 Sodium Chloride 0.9% 180 ml @ 1 MCG/KG/MIN 4.782 mls/hr IV .Q24H ROB Rx#: [id number] Norepinephrine 8 mg In 75.370 17.296 36.983 Sodium Chloride 0.9% 250 ml @ 0.03 MCG/KG/MIN 4. 435 mls/hr IV .Q24H ROB Rx#:[id number] Piperacillin-Tazobactam 3 100 .375 gm In Sodium Chloride 0.9% 100 ml @ 25 mls/hr IVPB Q8HR ROB Rx# :[id number] fentaNYL (PF). 1,000 mcg 169.098 100 61.884 In Sodium Chloride 0.9% 80 ml @ 0.5 MCG/KG/HR 3. 82 mls/hr IV .Q24H ROB Rx #:[id number] propofoL 1,000 mg In 100 190.381 186.638 Empty Bag 1 bag @ 15 MCG/ KG/MIN 6.876 mls/hr IV . [id number] ROB Rx#:[id number] Tube Feeding 70 180 170 Other 60 60 Output: Urine 542 983 2987 Other: Voiding Method Indwelling Catheter Indwelling Catheter Weight 79.7 kg ABP, PAP, CO, CI - Last 8 Hours Arterial Blood Pressure 102/49 Arterial Blood Pressure 101/47 Arterial Blood Pressure 106/46 Arterial Blood Pressure 110/49 Arterial Blood Pressure 102/47 Arterial Blood Pressure 113/53 Arterial Blood Pressure 105/47 Arterial Blood Pressure 111/54 Arterial Blood Pressure 82/40 Arterial Blood Pressure 83/42 Arterial Blood Pressure 76/43 Arterial Blood Pressure 84/46 Arterial Blood Pressure 98/49 Arterial Blood Pressure 107/58 Arterial Blood Pressure 119/59 Arterial Blood Pressure 114/56 Arterial Blood Pressure 106/57 Arterial Blood Pressure 106/49 Arterial Blood Pressure 100/52 Arterial Blood Pressure 104/52 Arterial Blood Pressure 104/52 Arterial Blood Pressure 100/50 Arterial Blood Pressure 104/48 Arterial Blood Pressure 106/53 Arterial Blood Pressure 103/52 Results CBC & Chem 7: 05/24/23 05:20 05/24/23 05:20 Labs: Abnormal Lab Results - Last 24 Hours (Table) 05/24/23 05/24/23 05/24/23 Range/Units 00:58 05:13 05:20 RBC (4.30-5.90) m/uL Hgb (13.0-17.5) gm/dL Hct (39.0-53.0) % MCHC (31.0-37.0) g/dL RDW (11.5-15.5) % Lymphocytes # (1.0-4.8) k/uL ABG pH 7.29 L (7.35-7.45) ABG pCO2 64 H (35-45) mmHg ABG HCO3 31 H (21-25) mmol/L ABG Total CO2 33 H (19-24) mmol/L ABG O2 Saturation 98.7 H (94-97) % Creatinine 0.65 L (0.66-1.25) mg/dL Glucose 132 H (74-99) mg/dL POC Glucose (mg/dL) 145 H (70-110) mg/dL Total Protein 5.4 L (6.3-8.2) g/dL Albumin 2.9 L (3.5-5.0) g/dL 05/24/23 05/24/23 05/24/23 Range/Units 05:20 06:34 11:53 RBC 3.05 L (4.30-5.90) m/uL Hgb 7.8 L (13.0-17.5) gm/dL Hct 25.2 L (39.0-53.0) % MCHC 30.9 L (31.0-37.0) g/dL RDW 15.9 H (11.5-15.5) % Lymphocytes # 0.2 L (1.0-4.8) k/uL ABG pH (7.35-7.45) ABG pCO2 (35-45) mmHg ABG HCO3 (21-25) mmol/L ABG Total CO2 (19-24) mmol/L ABG O2 Saturation (94-97) % Creatinine (0.66-1.25) mg/dL Glucose (74-99) mg/dL POC Glucose (mg/dL) 158 H 165 H (70-110) mg/dL Total Protein (6.3-8.2) g/dL Albumin (3.5-5.0) g/dL Microbiology - Last 24 Hours (Table) 05/23/23 11:40 Gram Stain - Preliminary Bronchial Washings - Random Assessment and Plan (1) Lung cancer metastatic to brain Current Visit: Yes Status: Acute Code(s): C34.90 - MALIGNANT NEOPLASM OF UNSP PART OF UNSP BRONCHUS OR LUNG; C79.31 - SECONDARY MALIGNANT NEOPLASM OF BRAIN SNOMED Code(s): 80206585 Plan: We will do diagnostic lumbar puncture and collection of cerebrospinal fluid. Discussed with patient's and family members in details with the procedure, alternatives, complications which may include infection nerve damage and spatially possibility of intrathecal bleeding. They understand, all questions were answered. Time with Patient: Less than 30 PQRS Measure Charge Sheet Pain Comment: Patient confused, no specific pain behavior noted PQRS Narrative: Blood Pressure [Right Arm] 133/88 Blood Pressure 97/53 Pain Intensity [None] 0 Pain Intensity [Left Chest] 3 Pain Intensity 8 Pain Scale Used [Left Chest] Numeric (1 - 10) Pain Scale Used Non Verbal Pain Indicator Scale Used Non Verbal Pain Indicator Hx Alcohol Use (MH) Yes Home Medications: Ambulatory Orders Aspirin [Children's Aspirin] 81 mg PO DAILY@0800 11/11/22 Albuterol Inhaler [Ventolin Hfa Inhaler] 2 puff INHALATION RT-Q6H PRN 01/29/23 Baclofen 5 mg PO BID@0800,1300 05/11/23 Furosemide [Lasix] 40 mg PO DAILY@79905/11/23 Metoprolol Tartrate [Lopressor] 50 mg PO BID@08,199905/11/23 Pantoprazole [Protonix] 40 mg PO DAILY@79905/11/23 Prochlorperazine [Compazine] 10 mg PO DAILY@79905/11/23 Warfarin [Coumadin] 7.5 mg PO DAILY@199905/11/23 fentaNYL 25MCG/HR PATCH [Duragesic 25MCG/HR] 1 patch TOPICAL Q72H 05/11/23 Budesonide-Formot 160-4.5 Mcg [Symbicort 160-4.5 Mcg Inhaler] 2 puff INHALATION RT-BID 30 Days #1 each 05/15/23 Folic Acid 1 mg PO DAILY 30 Days #30 tab 05/15/23 HYDROcodone/APAP 10-325MG [[place] 10-325] 1 tab PO Q4HR PRN 05/19/23 oxyCODONE HCL [oxyCODONE HCL (IR)] 5 mg PO Q6H PRN 05/19/23
--- NOTE | 2023-05-24 14:22 | P.PCN ---
Description of Procedure: Preoperative diagnosis: Metastatic lung cancer Post operative diagnoses: As above. Procedure done. Diagnostic lumbar puncture and collection of cerebrospinal fluid. Anesthesia. Increasing propofol and fentanyl drip which patient has been on., local infiltration with lidocaine 1% 2 mL. Description of the procedure. Procedure risk specially possibility of intrayhecal bleeding, alternatives and benefits discussed with the patient and family, consent signed. Patient and the procedure area placed in lateral p osition ( right side down ), back prepped with chlorhexidine 3 times been local infiltration of the skin and subcutaneous tissue with lidocaine 1% 2 mL for skin and subcu interstitial frustrations at L4 5 levels then 22-gauge Quincke-type needle advanced slowly at L4- 5 interlaminar space there was positive cerebrospinal fluid which was clear, no heme, no paresthesia ,total of 12 ML of clear cerebrospinal fluid collected in 4 different tubes 3 mL in each, then the needle removed and a Band-Aid applied and patient tolerated the procedure well without any complications. Disposition. Patient tolerated the procedure well, no complications.
[2023-05-24] MEDS: METOPROLOL TARTRATE 5 MG/5 ML VIAL IVP ONE (14:26)
[2023-05-24] MEDS: DEXTROSE 5% IN WATER 100 ML with AMIODARONE 150 MG IV ONE (14:35)
[2023-05-24] MEDS: AMIODARONE 360 MG in DEXTROSE 5% IN WATER 200 ML IV ONE (14:59)
--- NOTE | 2023-05-24 15:09 | P.PN ---
Subjective Progress Note Date: 05/24/23 Principal diagnosis: Static adenocarcinoma of the lung with hemoptysis 63-year-old male patient with metastatic pulmonary adenocarcinoma and the patient has a bulky tumor in his chest with extensive adenopathy involving the right hilum and the right paratracheal and subcarinal area the largest portions measuring 8 x 86.3 cm in size in the hilar area and 5.6 x 3.5 cm inside the subcarinal and infrahilar area. There is also lymphadenopathy involving the left hilum other smaller lymph nodes within the mediastinum and the patient has small pleural effusion right more than left along with compressive atelectatic changes and pleural-based nodules in the right and extensive groundglass changes in the left upper lobe with numerous nodular densities up to 16 x 13 mm in size. Smaller nodules also seen in the left lung in addition. In summary, the patient disease is metastatic as the patient also has extensive heterogeneous liver concerning for diffuse metastases and a stain is also enlarged and the patient has multiple soft tissue masses/lymphadenopathy in the upper abdomen. 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 The patient was admitted to the hospital on 05/12/2023 for shortness of breath and hemoptysis. His hemoptysis was attributed to his metastatic lung cancer and the patient was taken anticoagulation with warfarin and his INR was supratherapeutic. At that time, his INR was reversed, however, the patient in the going back on warfarin as the patient is a mechanical aortic valve and there is no reasonable alternatives to that and were targeting a titer INR control between 2 and 2.5. He was supposed to follow-up with oncology on outpatient basis. In addition oncology saw him during his hospital stay and thought that the brain lesion was small and there was no need for radiation this point in time. Following his discharge, the patient encounter ongoing hemoptysis which never stopped since his discharge. He came into the hospital for further advice. Total amount of blood was probably in the form of 10 mL overnight mixed with mucus. No blood clots. No worsening shortness of breath. His chronically dyspneic and is also having hypoxic respiratory failure maintained on oxygen. He has atrial fibrillation, coronary artery disease, and previous aortic valve replacement with a mechanical valve. I did see the patient during his last hospital stay and the patient was thought to be clinically stable for discharge to be followed up by oncology. Final decision on treatment for his lung cancer has not been made as the patient is awaiting PDL 1 and NGS analysis prior to quitting for any further treatment. He was supposed to be seen by medical oncology early next week. For now, the patient's echoes at 8.5, hemoglobin is 8.2 which is stable since his discharge. INR is at 2.7 with a PT of 27. BUN is a 50 with a creatinine of 1.01 and sodium level is 128. His oxygenation is stable at 3 L with a pulse ox of 99%. Computed tomography scan of the chest was again ordered The patient is seen today 05/20/2023 in follow-up on the regular medical floor. He is awake and alert in no acute distress. He denies any further hemoptysis. He has some right-sided chest discomfort on inhalation. Computed tomography scan of the chest from last evening shows overall significant progression of metastatic disease with extensive soft tissue metastasis/nodes in the neck and chest showing appreciable increase in size. There is worsening, lumbar med iastinal and hilar soft tissue masses/adenopathy resultant slightly worsened narrowing of branches of the right pulmonary artery and bronchi in the right hilum. New pulmonary emboli in the right lower lobe artery, segmental and sent segmental branches. Interval worsening of opacity in the right upper lobe, concerning for spread of tumor with possible superimposed pneumonitis. This obscures some the lung nodules evident before. There are also enlarging nodules in the superior segment of the right lower lobe. Small bilateral pleural effusions. Improved groundglass opacities and multiple nodules in the left lung, with residual nodularity. Worsening extensive upper abdominal metastatic disease, with significant enlargement of metastasis/nodes as above. Doppler of the lower extremity was negative for DVT. MRI of the brain reveals a 1.4 cm ring enhancing lesion with some mild vasogenic edema adjacent right frontal lobe. Suspicious for metastatic lesion. White count 8.2. Hemoglobin 7.8. INR 3.6. Sodium 134. Potassium 4.3. Bicarb 23. BUN 7. Creatinine 0.8. Glucose 99. He remains on DuoNeb inhalations, Symbicort antibiotics in the form of ceftriaxone. He is continued on Decadron 4 mg IVP every 6 hours. The patient is seen today May 21, 2023 and follow-up on the regular medical floor. He is sitting up in a chair at the bedside. Awake and alert in no acute distress. Denies any worsening shortness of breath, cough or congestion. No hemoptysis. He remains on DuoNeb ventilations, Symbicort, Decadron. Antibiotics in the form of ceftriaxone. INR 1.1. The plan is for PICC line placement and to be initiated on carboplatin today. He remains on a heparin dri p. The patient is seen today May 22, 2023 in follow-up on the regular medical floor. He is currently resting in bed. He did have some issues with agitation and combativeness requiring Haldol and soft restraints. project manager retail is at the bedside. He is maintaining good O2 saturation in the mid 90s on room air. He has been afebrile. Hemodynamically stable. His hemoglobin is 6.4 and he is receiving 1 unit of packed red blood cells. Platelets 298. White count 8.4. INR 1.2. Sodium 139. Potassium 4.3. Bicarb 21. BUN 12. Creatinine 0.7. Glucose 124. He remains on a heparin drip. Remains on antibiotics in the form of ceftriaxone. Decadron 4 mg IVP every 8 hours. Continued on DuoNeb ventilations, Symbicort. Normal saline at 75 MLS per hour. He did receive carboplatin and Alimta yesterday. Patient was reevaluated today on May 23/2024, patient decompensated this morning, he became extremely short of breath, patient was also becoming more and more combative, he was having more and more episodes of hemoptysis, and I recommended transferring the patient to the ICU. Patient was placed on multiple medications to calm him down, however he continued to deteriorate and he was developing more and more shortness of breath and more desaturations. Hence I was notified about the patient and I recommended immediate intubation. Patient was already transferred to the ICU at the time. Present patient is intubated and mechanically ventilated, he is on assist-control rate of 18 tidal volume 400 FiO2 35% and PEEP of 5 ABG showed a pO2 of more than 400 on 100% pCO2 44 pH of 7.31. Patient is on propofol 70 mcg/kg/min norepinephrine 0.04 mcg/kg/min Fentanyl at 1 mcg/kg/h he is also 1.9 normal saline at [facility], receiving ceftriaxone and receiving Decadron. Went ahead and performed bronchoscopy on this patient, there was no active bleeding noted, there is definitely a large tumor involving the apical segment of the right upper lobe, but no active bleeding in the right upper lobe was noted. Established a radial arterial line for hemodynamic monitoring, discussed his condition with the , and made aware of the severity of his illness, she seems to be reasonable, and she clearly stated to me that if his condition gets any worse and hopeless, she will definitely consider comfort care measures at that point. WBC count today is 10.9 hemoglobin 7.9. Follow-up ABG this morning showed a pO2 of 205 pCO2 34 pH of 7.47, this was on 50% FiO2 basic metabolic profile is normal renal profile is normal chest x-ray showed mild midlung infiltrate right side, possible atelectasis Patient with presented today on 05/24/2023, patient remains in the ICU, intubated and mechanically ventilated, he is on assist-control rate of 18 tidal volume 400 FiO2 35% PEEP of 5 ABG showed a pO2 of 106 pCO2 64 pH of 7.29, hence his rate was increased up to 22, and tidal volume increased to 450. Patient was on Nimbex last night, and this was discontinued this morning, he is on nore pinephrine at 0.03 mcg/kg/min Fentanyl 2 mcg/kg/h propofol 70 mcg/kg/min is also on vital HP at 30 cc/h. Remains empirically on Zosyn, patient has good urine output, he is scheduled to have lumbar puncture today by anesthesia. Chest x- ray shows endotracheal tube in the proper position, and orogastric tube is also in the proper position, opacity noted in the right upper lobe and right lower lobe related to his recent episode of hemoptysis and right upper lobe malignancy bronchial washings/cultures are still pending Gram stain from the washing is showing mostly few yeast. Blood cultures from the remain negative. WBC count is 8 hemoglobin 7.8 basic metabolic profile is normal and renal profile is normal Objective - Vital Signs Vital signs: Vital Signs Temp 98.3 F 05/24/23 12:00 Pulse 88 05/24/23 13:00 Resp 22 05/24/23 13:00 BP 97/53 05/24/23 00:00 Pulse Ox 98 05/24/23 13:00 FiO2 40 05/24/23 12:00 Intake & Output 05/23/23 05/24/23 05/24/23 18:59 06:59 18:59 Intake Total 216.101 6743.316 938.752 Output Total 900 1410 1095 Balance -251.843 -334.684 -156.248 Weight 79.7 kg 79.7 kg Intake: IV 261 253 118 .9NS 240 220 100 .9NS Pressure Bag 21 33 18 Intake, IV Titration 337.157 552.316 590.752 Amount Cisatracurium 200 mg In 2.311 167.131 Sodium Chloride 0.9% 180 ml @ 1 MCG/KG/MIN 4.782 mls/hr IV .Q24H ROB Rx#: [id number] Norepinephrine 8 mg In 92.666 36.983 Sodium Chloride 0.9% 250 ml @ 0.03 MCG/KG/MIN 4. 435 mls/hr IV .Q24H ROB Rx#:[id number] Piperacillin-Tazobactam 3 100 .375 gm In Sodium Chloride 0.9% 100 ml @ 25 mls/hr IVPB Q8HR ROB Rx# :[id number] fentaNYL (PF). 1,000 mcg 150.890 169.269 100.000 In Sodium Chloride 0.9% 80 ml @ 0.5 MCG/KG/HR 3. 82 mls/hr IV .Q24H ROB Rx #:[id number] propofoL 1,000 mg In 183.956 290.381 186.638 Empty Bag 1 bag @ 15 MCG/ KG/MIN 6.876 mls/hr IV . [id number] ROB Rx#:[id number] Tube Feeding 50 210 170 Other 60 60 Output: Urine 900 1410 1095 Other: Voiding Method Indwelling Catheter Indwelling Catheter ABP, PAP, CO, CI - Last Documented Arterial Blood Pressure 102/49 - Exam General: Reveals 63-year-old white male intubated mechanically ventilated, sedated. : Atraumatic, normocephalic endotracheal tube and orogastric tube are intact Skin: Skin is warm and dry and no rashes or lesions are noted. Eye: Pupils are equal, round and reactive to light, extra-ocular movements are intact; there is normal conjunctiva bilaterally. Ears, nose, mouth and throat: There are moist mucous membranes and no oral lesions. Neck: The neck is supple, there is no tenderness or JVD. Cardiovascular: Regular rhythm, no S3 gallop. No murmur. Respiratory: Good breath sound bilaterally no rhonchi no wheeze Gastrointestinal: Soft, non-distended, non-tender abdomen without masses or organomegaly noted Neurologic: Cannot assess patient is sedated on propofol and fentanyl Psychiatric: Could not assess. Skin: Evidence of psoriatic lesions and dry skin - Labs CBC & Chem 7: 05/24/23 05:20 05/24/23 05:20 Labs: Abnormal Lab Results - Last 24 Hours (Table) 05/24/23 05/24/23 05/24/23 Range/Units 00:58 05:13 05:20 RBC (4.30-5.90) m/uL Hgb (13.0-17.5) gm/dL Hct (39.0-53.0) % MCHC (31.0-37.0) g/dL RDW (11.5-15.5) % Lymphocytes # (1.0-4.8) k/uL ABG pH 7.29 L (7.35-7.45) ABG pCO2 64 H (35-45) mmHg ABG HCO3 31 H (21-25) mmol/L ABG Total CO2 33 H (19-24) mmol/L ABG O2 Saturation 98.7 H (94-97) % Creatinine 0.65 L (0.66-1.25) mg/dL Glucose 132 H (74-99) mg/dL POC Glucose (mg/dL) 145 H (70-110) mg/dL Total Protein 5.4 L (6.3-8.2) g/dL Albumin 2.9 L (3.5-5.0) g/dL 05/24/23 05/24/23 05/24/23 Range/Units 05:20 06:34 11:53 RBC 3.05 L (4.30-5.90) m/uL Hgb 7.8 L (13.0-17.5) gm/dL Hct 25.2 L (39.0-53.0) % MCHC 30.9 L (31.0-37.0) g/dL RDW 15.9 H (11.5-15.5) % Lymphocytes # 0.2 L (1.0-4.8) k/uL ABG pH (7.35-7.45) ABG pCO2 (35-45) mmHg ABG HCO3 (21-25) mmol/L ABG Total CO2 (19-24) mmol/L ABG O2 Saturation (94-97) % Creatinine (0.66-1.25) mg/dL Glucose (74-99) mg/dL POC Glucose (mg/dL) 158 H 165 H (70-110) mg/dL Total Protein (6.3-8.2) g/dL Albumin (3.5-5.0) g/dL Microbiology - Last 24 Hours (Table) 05/23/23 11:40 Gram Stain - Preliminary Bronchial Washings - Random Assessment and Plan Assessment: Impression: Acute hypoxic respiratory failure secondary to metastatic lung cancer and recurrent episodes of hemoptysis, patient was intubated and mechanically ventilated on 05/23/2023 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 Altered mental status as noted above Acute pulmonary emboli, consider restarting anticoagulation therapy in the next 24 hours Acute on chronic anemia patient required 1 unit of packed RBCs since admission Chronic atrial fibrillation, maintained on Coumadin, presently on hold, may have to restart anticoagulation tomorrow patient underwent lumbar puncture today History of mechanical aortic valve placed in 2019 patient had previous history of bicuspid aortic valve History of coronary artery disease and previous CABG History of LV dysfunction and recurrent episodes of systolic congestive heart failure Benign essential hypertension Dyslipidemia Psoriasis History of traumatic brain injury Status post lumbar puncture on 05/24/2023 Commendation: Continue ventilatory support, patient is clearly not ready for weaning nonetheless I am trying to hold sedation and address sedation interruption on a daily basis Continue hemodynamic support Continue sedation patient is not ready for any weaning at this point. Continue to hold Coumadin for now Bronchoscopy was performed cultures are pending Continue empiric antibiotics. Chemotherapy as per oncology on the case, patient was started on carboplatin and Alimta Patient is critically ill. Awaiting the final report on his lumbar puncture was updated as his condition again today. Critical care time is over 30 minutes Time with Patient: Greater than 30
[2023-05-24] MEDS: HEPARIN SOD,PORK IN 0.45% NACL 25,000 UNIT in 0.45% NACL 1 250ML.BAG IV SCH (15:34)
--- NOTE | 2023-05-24 15:43 | P.PN ---
Subjective Progress Note Date: 05/24/23 PROGRESS NOTE The patient is a 63-year-old male with history of atrial fibrillation, mild nonobstructive CAD, status post On-X mechanical aortic valve replacement in 2019 for bicuspid aortic valve with ascending aortic aneurysm repair done at [facility] who was diagnosed with metastatic lung cancer. He was admitted to the hospital to undergo further workup and became more dyspneic requiring mechanical ventilation. He is intubated and sedated at this time. Underwent spinal tap to rule out metastasis. He was in atrial fibrillation with rapid ventricle response and had hypotension requiring norepinephrine. His heart rate is better after receiving intravenous beta-irvin in addition to IV amiodarone. In the past his echocardiogram showed an ejection fraction of 35 to 40% with normal function of his mechanical valve. He has underwent cardioversion in March 2023 but had recurrent atrial fibrillation subsequently. Medications: IV amiodarone, IV heparin, patient was on metoprolol 50 mg 3 times daily prior to intubation and was on Coumadin PHYSICAL EXAMINATION: Blood pressure 102/50 heart rate 98 -120, intubated and sedated LUNGS: Clear to auscultation anteriorly HEART: Irregular rate and rhythm, S1, S2. Prosthetic aortic sound, no S3. Systolic ejection murmur ABDOMEN: Soft, positive bowel sounds, no organomegaly EXTREMETIES: No edema LAB: Hemoglobin 7.8, potassium 5.1, creatinine 0.65, BUN 19 IMPRESSION: 1. Respiratory failure with metastatic lung cancer and recurrent hemoptysis on mechanical ventilation 2. Atrial fibrillation with episodes of rapid ventricle response 3. Status post On-X mechanical aortic valve replacement for bicuspid aortic valve 4. Mild CAD 5. Nonischemic cardiomyopathy 6. Mental status changes probably related to brain metastasis PLAN: 1. Continue IV beta-irvin until able to take oral metoprolol 2. IV heparin until Coumadin is restarted to maintain INR above 2 because of his atrial fibrillation and On-x valve 3. Prognosis very poor 4. Depending on his progress further recommendations will be made Objective - Vital Signs Vital signs: Vital Signs Temp 98.3 F 05/24/23 12:00 Pulse 88 05/24/23 13:00 Resp 22 05/24/23 13:00 BP 97/53 05/24/23 00:00 Pulse Ox 98 05/24/23 13:00 FiO2 40 05/24/23 12:00 Intake & Output 05/23/23 05/24/23 05/24/23 18:59 06:59 18:59 Intake Total 474.250 0713.316 938.752 Output Total 900 1410 1095 Balance -251.843 -334.684 -156.248 Weight 79.7 kg 79.7 kg Intake: IV 261 253 118 .9NS 240 220 100 .9NS Pressure Bag 21 33 18 Intake, IV Titration 337.157 552.316 590.752 Amount Cisatracurium 200 mg In 2.311 167.131 Sodium Chloride 0.9% 180 ml @ 1 MCG/KG/MIN 4.782 mls/hr IV .Q24H ROB Rx#: [id number] Norepinephrine 8 mg In 92.666 36.983 Sodium Chloride 0.9% 250 ml @ 0.03 MCG/KG/MIN 4. 435 mls/hr IV .Q24H ROB Rx#:[id number] Piperacillin-Tazobactam 3 100 .375 gm In Sodium Chloride 0.9% 100 ml @ 25 mls/hr IVPB Q8HR ROB Rx# :[id number] fentaNYL (PF). 1,000 mcg 150.890 169.269 100.000 In Sodium Chloride 0.9% 80 ml @ 0.5 MCG/KG/HR 3. 82 mls/hr IV .Q24H ROB Rx #:[id number] propofoL 1,000 mg In 183.956 290.381 186.638 Empty Bag 1 bag @ 15 MCG/ KG/MIN 6.876 mls/hr IV . [id number] ROB Rx#:[id number] Tube Feeding 50 210 170 Other 60 60 Output: Urine 900 1410 1095 Other: Voiding Method Indwelling Catheter Indwelling Catheter ABP, PAP, CO, CI - Last Documented Arterial Blood Pressure 102/49 - Labs CBC & Chem 7: 05/24/23 05:20 05/24/23 05:20 Labs: Abnormal Lab Results - Last 24 Hours (Table) 05/24/23 05/24/23 05/24/23 Range/Units 00:58 05:13 05:20 RBC (4.30-5.90) m/uL Hgb (13.0-17.5) gm/dL Hct (39.0-53.0) % MCHC (31.0-37.0) g/dL RDW (11.5-15.5) % Lymphocytes # (1.0-4.8) k/uL ABG pH 7.29 L (7.35-7.45) ABG pCO2 64 H (35-45) mmHg ABG HCO3 31 H (21-25) mmol/L ABG Total CO2 33 H (19-24) mmol/L ABG O2 Saturation 98.7 H (94-97) % Creatinine 0.65 L (0.66-1.25) mg/dL Glucose 132 H (74-99) mg/dL POC Glucose (mg/dL) 145 H (70-110) mg/dL Total Protein 5.4 L (6.3-8.2) g/dL Albumin 2.9 L (3.5-5.0) g/dL 05/24/23 05/24/23 05/24/23 Range/Units 05:20 06:34 11:53 RBC 3.05 L (4.30-5.90) m/uL Hgb 7.8 L (13.0-17.5) gm/dL Hct 25.2 L (39.0-53.0) % MCHC 30.9 L (31.0-37.0) g/dL RDW 15.9 H (11.5-15.5) % Lymphocytes # 0.2 L (1.0-4.8) k/uL ABG pH (7.35-7.45) ABG pCO2 (35-45) mmHg ABG HCO3 (21-25) mmol/L ABG Total CO2 (19-24) mmol/L ABG O2 Saturation (94-97) % Creatinine (0.66-1.25) mg/dL Glucose (74-99) mg/dL POC Glucose (mg/dL) 158 H 165 H (70-110) mg/dL Total Protein (6.3-8.2) g/dL Albumin (3.5-5.0) g/dL Microbiology - Last 24 Hours (Table) 05/23/23 11:40 Gram Stain - Preliminary Bronchial Washings - Random
[2023-05-24 15:47] LABS: INR 1.2 (<1.2); Partial Thromboplastin Time 22.4 sec (22.0-30.0); Prothrombin Time 13.2 sec (10.0-12.5)
--- NOTE | 2023-05-24 16:36 | P.PN ---
Subjective Progress Note Date: 05/24/23 In follow-up today patient is seen in the intensive care unit, sedated and ventilated. No acute events. S/p bronchoscopy, no active bleeding noted. LP requested to r/o infectious vs leptomeningeal disease. Objective - Vital Signs Vital signs: Vital Signs Temp 98.3 F 05/24/23 12:00 Pulse 105 H 05/24/23 16:21 Resp 22 05/24/23 16:00 BP 97/53 05/24/23 00:00 Pulse Ox 97 05/24/23 16:00 FiO2 35 05/24/23 16:12 Intake & Output 05/23/23 05/24/23 05/24/23 18:59 06:59 18:59 Intake Total 819.865 7160.316 1099.430 Output Total 900 1410 1320 Balance -251.843 -334.684 -220.570 Weight 79.7 kg 79.7 kg Intake: IV 261 253 187 .9NS 240 220 160 .9NS Pressure Bag 21 33 27 Intake, IV Titration 337.157 552.316 619.430 Amount Cisatracurium 200 mg In 2.311 167.131 Sodium Chloride 0.9% 180 ml @ 1 MCG/KG/MIN 4.782 mls/hr IV .Q24H ROB Rx#: [id number] Norepinephrine 8 mg In 92.666 65.661 Sodium Chloride 0.9% 250 ml @ 0.03 MCG/KG/MIN 4. 435 mls/hr IV .Q24H ROB Rx#:[id number] Piperacillin-Tazobactam 3 100 .375 gm In Sodium Chloride 0.9% 100 ml @ 25 mls/hr IVPB Q8HR ROB Rx# :[id number] fentaNYL (PF). 1,000 mcg 150.890 169.269 100.000 In Sodium Chloride 0.9% 80 ml @ 0.5 MCG/KG/HR 3. 82 mls/hr IV .Q24H ROB Rx #:[id number] propofoL 1,000 mg In 183.956 290.381 186.638 Empty Bag 1 bag @ 15 MCG/ KG/MIN 6.876 mls/hr IV . [id number] ROB Rx#:[id number] Tube Feeding 50 210 203 Other 60 90 Output: Urine 900 1410 1320 Other: Voiding Method Indwelling Catheter Indwelling Catheter ABP, PAP, CO, CI - Last Documented Arterial Blood Pressure 115/54 - Constitutional General appearance: Present: no acute distress - Respiratory Details: ventilated breath sounds - Cardiovascular Details: tachycardia - Integumentary Integumentary: Absent: cyanotic - Neurologic Neurologic Comment(s): sedated - Labs CBC & Chem 7: 05/24/23 05:20 05/24/23 05:20 Labs: Abnormal Lab Results - Last 24 Hours (Table) 05/24/23 05/24/23 05/24/23 Range/Units 00:58 05:13 05:20 RBC (4.30-5.90) m/uL Hgb (13.0-17.5) gm/dL Hct (39.0-53.0) % MCHC (31.0-37.0) g/dL RDW (11.5-15.5) % Lymphocytes # (1.0-4.8) k/uL PT (10.0-12.5) sec INR (<1.2) ABG pH 7.29 L (7.35-7.45) ABG pCO2 64 H (35-45) mmHg ABG HCO3 31 H (21-25) mmol/L ABG Total CO2 33 H (19-24) mmol/L ABG O2 Saturation 98.7 H (94-97) % Creatinine 0.65 L (0.66-1.25) mg/dL Glucose 132 H (74-99) mg/dL POC Glucose (mg/dL) 145 H (70-110) mg/dL Total Protein 5.4 L (6.3-8.2) g/dL Albumin 2.9 L (3.5-5.0) g/dL 05/24/23 05/24/23 05/24/23 Range/Units 05:20 06:34 11:53 RBC 3.05 L (4.30-5.90) m/uL Hgb 7.8 L (13.0-17.5) gm/dL Hct 25.2 L (39.0-53.0) % MCHC 30.9 L (31.0-37.0) g/dL RDW 15.9 H (11.5-15.5) % Lymphocytes # 0.2 L (1.0-4.8) k/uL PT (10.0-12.5) sec INR (<1.2) ABG pH (7.35-7.45) ABG pCO2 (35-45) mmHg ABG HCO3 (21-25) mmol/L ABG Total CO2 (19-24) mmol/L ABG O2 Saturation (94-97) % Creatinine (0.66-1.25) mg/dL Glucose (74-99) mg/dL POC Glucose (mg/dL) 158 H 165 H (70-110) mg/dL Total Protein (6.3-8.2) g/dL Albumin (3.5-5.0) g/dL 05/24/23 Range/Units 15:18 RBC (4.30-5.90) m/uL Hgb (13.0-17.5) gm/dL Hct (39.0-53.0) % MCHC (31.0-37.0) g/dL RDW (11.5-15.5) % Lymphocytes # (1.0-4.8) k/uL PT 13.2 H (10.0-12.5) sec INR 1.2 H (<1.2) ABG pH (7.35-7.45) ABG pCO2 (35-45) mmHg ABG HCO3 (21-25) mmol/L ABG Total CO2 (19-24) mmol/L ABG O2 Saturation (94-97) % Creatinine (0.66-1.25) mg/dL Glucose (74-99) mg/dL POC Glucose (mg/dL) (70-110) mg/dL Total Protein (6.3-8.2) g/dL Albumin (3.5-5.0) g/dL Microbiology - Last 24 Hours (Table) 05/23/23 11:40 Gram Stain - Preliminary Bronchial Washings - Random Assessment and Plan (1) Hemoptysis Current Visit: Yes Status: Acute Priority: High Code(s): R04.2 - HEMOPTYSIS SNOMED Code(s): 66760200 (2) Metastatic non-small cell lung cancer Current Visit: Yes Status: Acute Priority: High Code(s): C34.90 - MALIGNANT NEOPLASM OF UNSP PART OF UNSP BRONCHUS OR LUNG SNOMED Code(s): 885384758 (3) Pulmonary embolism Current Visit: Yes Status: Acute Priority: High Code(s): I26.99 - OTHER PULMONARY EMBOLISM WITHOUT ACUTE COR PULMONALE SNOMED Code(s): 47825001 Plan: PE -New Rt lung PE, BLE doppler for baseline-neg for DVT -[place] to be provoked 2/2 malignancy, recent multiple hospitalizations and holding of coumadin last week because of hemoptysis. -Duration of anticoagulation for a provoked PE is irrelevant. The patient has an artificial heart valve and he needs to be on full dose anticoagulation indefinitely. Artificial heart valve -Patient previously on Coumadin. INR regulation is challenging due to changes in oral intake, malignancy in the GI tract. -Coumadin reversed. Low intensity heparin drip started. -Pending Cardiology recommendations for alternative anticoagulation to coumadin for artificial heart valve (lovenox?) AMS -Repeat MRI brain-mood and behavioral changes-showing several lesions and vasogenic edema. Dexamethasone IV ordered. PPI BID. -Pt continuing to have abnormal behaviors overnight. He then began experiencing significant difficulty in breathing and hemoptysis, he was taken to the intensive care unit and intubated. -Pt behavior symptoms did not improve with steroids, as would be expected if changes were because of brain mets and vasogenic edema. Concern if steroids are contributing so, reduced frequency, but there was no significant change. Xanax changed to IV ativan. IM adjusted freq of pain meds. Unfortunately, no improvements, patient was transferred to ICU and remains intubated and sedated. -LP requested. Performed at bedside today. Cytology and fluid analysis requested on CSF specimen. Concerns for leptomeningeal metastasis. Hemoptysis -recurrent -bronchoscopy performed, reported old blood in the mucosal of the airways, right upper lobe evidence of a large tumor, apical segment totally occluded with the tumor. -Low intensity heparin drip held. -Pending Cardiology recs if lovenox can be used Non-small cell adenocarcinoma, non-squamous, metastatic disease, rapid progres [place] -Pt 1st presented on 04/18 and has since been inpt 2 additional times in the last 3 weeks. He was unable to stay out of the hospital long enough to start treatment. -MRI brain is showing 1.4 cm ring enhancing lesion-3 weeks after prior MRI showing of a 9 mm lesion with no ring enhancement. CT chest is reports significant progression of disease in just 3 weeks. -1st cycle of carbo/alimta on 05/20/23 -Will likely benefit from XRT to lung mass prior to proceeding to cycle 2. Will speak with rad onc regarding case once pt more stable -Cont use of supportive medications as needed based on reported symptoms -Labs ordered daily Attests: I have seen and examined pt, performed H&P, developed impression and plan of care. Discussed with dictator. Agree with documentation, dictated as a scribe.
[2023-05-24] MEDS: AMIODARONE 450 MG in DEXTROSE 5% IN WATER 250 ML IV SCH (20:00)
[2023-05-24 20:22] LABS: Glucose,Whole Blood 189 mg/dL (70-110)
[2023-05-24] MEDS: METOPROLOL TARTRATE 5 MG/5 ML VIAL IVP SCH (20:52)
[2023-05-24 20:59] LABS: Glucose,CSF 93 mg/dL (40-70); Total Protein,CSF 51 mg/dL (12-60)
[2023-05-24 21:47] LABS: Appearance,CSF Clear; CSF Tube Number 4; Nucleated Cells, CSF 1 u/L (0-5); Red Blood Cell,CSF 0 u/L (0-10)
[2023-05-24 23:59] LABS: Glucose,Whole Blood 146 mg/dL (70-110)
[2023-05-25 04:37] LABS: Basophils % (A) 0 %; Eosinophils % (A) 0 %; HCT 22.4 % (39.0-53.0); HGB 7.2 gm/dL (13.0-17.5); Hypochromasia Marked; Lymphocytes # (A) 0.2 k/uL (1.0-4.8); Lymphocytes % (A) 2 %; MCH 26.2 pg (25.0-35.0); MCHC 32.2 g/dL (31.0-37.0); MCV 81.3 fL (80.0-100.0); Mean Platelet Volume 8.7; Monocytes # (A) 0.1 k/uL (0-1.0); Monocytes % (A) 1 %; Neutrophils # (A) 7.1 k/uL (1.3-7.7); Neutrophils % (A) 97 %; Platelet Count 299 k/uL (150-450); Poikilocytosis Slight; RBC 2.75 m/uL (4.30-5.90); WBC 7.4 k/uL (3.8-10.6)
[2023-05-25 04:47] LABS: INR 1.2 (<1.2); Partial Thromboplastin Time 34.8 sec (22.0-30.0); Prothrombin Time 12.5 sec (10.0-12.5)
[2023-05-25 04:55] LABS: African American GFR (CKD) >90 (>60 ml/min/1.73 sqM); Anion Gap 0 mmol/L; Blood Urea Nitrogen 18 mg/dL (9-20); Calcium 8.5 mg/dL (8.4-10.2); Carbon Dioxide 31 mmol/L (22-30); Chloride 105 mmol/L (98-107); Glucose 136 mg/dL (74-99); Non-African American GFR(CKD) >90 (>60 ml/min/1.73 sqM); Potassium 4.6 mmol/L (3.5-5.1); Sodium 136 mmol/L (137-145)
[2023-05-25 05:26] LABS: Glucose,Whole Blood 170 mg/dL (70-110)
[2023-05-25 06:36] LABS: ABG Base Excess 6.7 mmol/L; ABG HCO3 31 mmol/L (21-25); ABG Oxygen Saturation 99.6 % (94-97); ABG PCO2 48 mmHg (35-45); ABG PH 7.42 (7.35-7.45); ABG PO2 123 mmHg (83-108); ABG TCO2 33 mmol/L (19-24); Allen Test Performed? Yes
[2023-05-25] MEDS: HALOPERIDOL LACTATE 5 MG/ML 1 ML VIAL IVP ONE (08:50)
--- NOTE | 2023-05-25 08:53 | XR ---
EXAMINATION TYPE: XR chest 1V portable DATE OF EXAM: 05/25/2023 COMPARISON: 05/24/2023 INDICATION: Tube placement TECHNIQUE: Single frontal view of the chest is obtained. FINDINGS: The heart size is normal. Sternotomy wires are present from prior surgery. The pulmonary vasculature is normal. Mild right central increased lung markings. Correlate for pneumonia. Findings appear improved from co mparison Endotracheal tube tip is above the maritza. Gastric tube tip is in the left upper quadrant of the abdo men. PICC line entering from the left as a tip in the distal superior vena cava region. IMPRESSION: 1. Improving right central increased lung markings. Continued follow-up is recommended. 2. Lines and catheters discussed above
[2023-05-25] MEDS: METOPROLOL TARTRATE 25 MG TAB PO SCH (09:15)
[2023-05-25] MEDS: AMIODARONE 200 MG TAB PO SCH (09:15)
[2023-05-25] MEDS: QUEtiapine 50 MG TAB PO SCH (09:15)
--- NOTE | 2023-05-25 09:31 | CONS ---
CONSULTATION HISTORY OF PRESENT ILLNESS: This is a 63-year-old gentleman, admitted to hospital with respiratory failure requiring mechanical ventilation. We have been consulted because of atrial fibrillation with rapid ventricular rate. The patient has a history of mechanical aortic valve replacement and was on Coumadin coming in. He has metastatic lung cancer and is currently being evaluated for possible [employer] mets. The echocardiogram in the past revealed an ejection fraction of 35% to 40% with a normally functioning mechanical valve. The patient underwent cardioversion in March of 2023, but had been in atrial fibrillation since. At the time of my evaluation, the patient is in atrial fibrillation with elevated heart rate. I am going to switch his amiodarone to p.o. Continue the metoprolol at 25 mg t.i.d. and continue the IV heparin. PHYSICAL EXAMINATION: GENERAL: The patient is intubated on vent and sedated. VITAL SIGNS: Heart rate is 90 beats, blood pressure is 115/53, respiratory rate 18. CHEST: Reveals diminished air entry at the bases. HEART: Reveals first and second heart sounds, irregular rhythm. Mechanical valve sound is heard and there is an ejection systolic murmur in the aortic area. ABDOMEN: Soft. EXTREMITIES: Reveals 1+ edema. LABORATORY DATA: Labs show a hemoglobin of 7.2, potassium 4.6, creatinine 0.6. ASSESSMENT: 1. Persistent atrial fibrillation with controlled ventricular rate, status post aortic valve replacement. 2. Metastatic lung cancer. PLAN: Continue IV heparin. Continue oral beta-blockers and amiodarone. MMODL / IJN: [id number] /
[2023-05-25] MEDS: MIDAZOLAM HCL 50 MG in SODIUM CHLORIDE 0.9% 40 ML IV SCH (10:16)
[2023-05-25 11:53] LABS: Glucose,Whole Blood 147 mg/dL (70-110)
--- NOTE | 2023-05-25 13:03 | P.PN ---
Subjective Progress Note Date: 05/25/23 This is a 30-year-old male who comes in with complaints of hemoptysis. Patient had chest CT showing progression of meta static lymph nodes in the neck chest and upper abdomen. There is also concern for bronchial invasion and with a right upper lobe infiltrate. He was admitted to the hospital with a consult placed to hematology with plans to undergo induction chemotherapy and radiation. Patient will have brain MRI completed today. He also reports not having a bowel movement. Blood work today shows white count 8.21, hemoglobin 7.8, sodium 134, BUN 7.1, creatinine 0.8. 05/21/2023 Patient is monitored to the medical floor he is being followed closely by oncology with plans for induction chemotherapy today. Not yet had a bowel movement but had not received MiraLAX we will try that first before giving an enema or stronger laxative. Abdomen is softer today and he does have positive normoactive bowel sounds throughout. Patient had a PICC line inserted today. Brain MRI shows a 1.4 cm ring-enhancing lesion with some mild vasogenic edema adjacent to the right frontal lobe findings are concerning for metastatic lesion he has been started on IV dexamethasone by oncology. Recommendations were made to hold warfarin at this time and INR was reversed patient was given the 5 mg dose of vitamin K. His INR today is 1.1 and he has been initiated on an IV heparin drip at this time. 05/22/2023 Patient is evaluated today resting in bed he is currently in 2-point restraints his is sitting at the bedside. Patient did receive his first dose of IV chemotherapy yesterday he is also on Decadron for the vasogenic edema. He was significantly agitated last night he did get out of bed fell in the hallway he was restrained and did require sedation to calm down. We would currently recommend to stop the Xanax decrease the frequency of the oxycodone and avoid Dilaudid if possible. Patient will be given Seroquel at at bedtime and also daily as needed for acute agitation. Patient continues on a course of IV ceftriaxone. He is also on IV heparin with warfarin being held. Status post [facility] his labs today are showing a hemoglobin of 7.4, platelet count of 298, white count of 8.41. His electrolytes are within normal limits. 05/23. Patient seen and examined. Patient currently intubated and sedated. Labs at this morning showed WBC 10.9, hemoglobin 7.9, platelet count 297 05/24. Patient seen and examined. Continues to be intubated. Lab work done showed WBC 8, hemoglobin 7.8, platelet count 283, sodium 1:30, potassium 5.1, magnesium 2.3, total bilirubin 0.5, 05/25. Patient seen and examined. Continues to be intubated. Patient had lumbar puncture done. Lab work done that showed WBC 1.4, hemoglobin 7.2, platelet count 299, sodium 138, potassium 4.6, BUN 18, creatinine 0.64 REVIEW OF SYSTEMS: Currently intubated and sedated PHYSICAL EXAMINATION: GENERAL: The patient is intubated and sedated HEENT: Pupils are round and equally reacting to light. No pharyngeal erythema. No thyromegaly. CARDIOVASCULAR: S1 and S2 present. No murmurs, rubs, or gallops. PULMONARY: Coarse Breath sounds bilaterally, no wheezing or crackles. ABDOMEN: Soft, nontender, nondistended, normoactive bowel sounds. No palpable organomegaly. MUSCULOSKELETAL: No joint swelling or deformity. EXTREMITIES: No cyanosis, clubbing, or pedal edema. NEUROLOGICAL: Intubated and sedated SKIN: No rashes. Assessment and plan Episodic hemoptysis due to his underlying lung cancer probably invading the right upper lobe bronchus Metastatic adenocarcinoma of the lung and diagnosis was made by biopsy of the exiting mass and intestinal mass. The patient has TARGET SETTER metastases. Brain metastases Altered mental status secondary to above Acute pulmonary emboli secondary to above, currently on heparin drip Acute on chronic anemia Chronic atrial fibrillation Mechanical aortic valve placed in 2019 Coronary artery disease bypass surgery, mild nonobstructive CAD current cardiac catheterization from [facility] 2019 CHF with an underlying impaired systolic heart failure with an ejection fraction of 35-40% Hypertension Hyperlipidemia Psoriasis Previous history of traumatic brain injury Monitor vital signs Monitor CBC Monitor CMP Continue vent management per ICU Aggressive bronchopulmonary hygiene continue telemetry monitoring Continue pharmacy dose heparin Continue IV propofol and fentanyl Continue IV Zosyn Continue tube feeding Continue amiodarone and Lopressor Repeat MRI brain-mood and behavioral changes-showing several lesions and vasogenic edema. Currently on IV Decadron 4 mg every 8 hourly. S/p lumbar puncture on 05/24 to rule out leptomeningeal metastasis Continue IV Protonix Patient started on chemotherapy with carboplatin and Alimta on 05/21 Pulmonology following Hematology oncology following Labs and medication were reviewed.. Continue same treatment. Continue with sym ptomatic treatment. Resume home medication. Monitor labs and vitals. DVT and GI prophylaxis. Further recommendations as per clinical course of the patient Dictation was produced using [employer] dictation software. please excuse any grammatical, word or spelling errors. Objective - Vital Signs Vital signs: Vital Signs Temp 98.7 F 05/25/23 08:00 Pulse 76 05/25/23 12:00 Resp 22 05/25/23 12:00 BP 97/53 05/24/23 00:00 Pulse Ox 98 05/25/23 12:00 FiO2 35 05/25/23 11:13 Intake & Output 05/24/23 05/25/23 05/25/23 18:59 06:59 18:59 Intake Total 2534.814 7025.222 606.502 Output Total 1645 1785 375 Balance -420.635 -173.778 231.502 Weight 79.7 kg 78.2 kg Intake: IV 233 399 75 .9NS 200 260 60 .9NS Pressure Bag 33 3 9 A line 36 6 Piperacillin-Tazobactam 3 100 .375 gm In Sodium Chloride 0.9% 100 ml @ 25 mls/hr IVPB Q8HR ROB Rx# :[id number] Intake, IV Titration 632.365 726.222 435.502 Amount Cisatracurium 200 mg In 167.131 Sodium Chloride 0.9% 180 ml @ 1 MCG/KG/MIN 4.782 mls/hr IV .Q24H ROB Rx#: [id number] Heparin Sod,Pork in 0.45% 146.010 103.99 NaCl 25,000 unit In 0.45 % NaCl 1 250ml.bag @ 12 UNITS/KG/HR 9.564 mls/hr IV .Q24H ROB Rx#: [id number] Norepinephrine 8 mg In 78.596 42.452 Sodium Chloride 0.9% 250 ml @ 0.03 MCG/KG/MIN 4. 435 mls/hr IV .Q24H ROB Rx#:[id number] Piperacillin-Tazobactam 3 100 .375 gm In Sodium Chloride 0.9% 100 ml @ 25 mls/hr IVPB Q8HR ROB Rx# :[id number] fentaNYL (PF). 1,000 mcg 100.000 156.302 98.301 In Sodium Chloride 0.9% 80 ml @ 0.5 MCG/KG/HR 3. 82 mls/hr IV .Q24H ROB Rx #:[id number] propofoL 1,000 mg In 186.638 381.458 233.211 Empty Bag 1 bag @ 15 MCG/ KG/MIN 6.876 mls/hr IV . [id number] ROB Rx#:[id number] Tube Feeding 269 396 66 Other 90 90 30 Output: Urine 1645 1785 375 Other: Voiding Method Indwelling Catheter Indwelling Catheter ABP, PAP, CO, CI - Last Documented Arterial Blood Pressure 101/51 - Labs CBC & Chem 7: 05/25/23 04:13 05/25/23 04:13 Labs: Abnormal Lab Results - Last 24 Hours (Table) 05/24/23 05/24/23 05/24/23 Range/Units 14:45 15:18 20:20 RBC (4.30-5.90) m/uL Hgb (13.0-17.5) gm/dL Hct (39.0-53.0) % RDW (11.5-15.5) % Lymphocytes # (1.0-4.8) k/uL PT 13.2 H (10.0-12.5) sec INR 1.2 H (<1.2) APTT (22.0-30.0) sec ABG pCO2 (35-45) mmHg ABG pO2 (83-108) mmHg ABG HCO3 (21-25) mmol/L ABG Total CO2 (19-24) mmol/L ABG O2 Saturation (94-97) % Sodium (137-145) mmol/L Carbon Dioxide (22-30) mmol/L Creatinine (0.66-1.25) mg/dL Glucose (74-99) mg/dL POC Glucose (mg/dL) 189 H (70-110) mg/dL CSF Glucose 93 H (40-70) mg/dL 05/24/23 05/25/23 05/25/23 Range/Units 23:57 04:13 04:13 RBC 2.75 L (4.30-5.90) m/uL Hgb 7.2 L (13.0-17.5) gm/dL Hct 22.4 L (39.0-53.0) % RDW 16.0 H (11.5-15.5) % Lymphocytes # 0.2 L (1.0-4.8) k/uL PT (10.0-12.5) sec INR 1.2 H (<1.2) APTT 34.8 H (22.0-30.0) sec ABG pCO2 (35-45) mmHg ABG pO2 (83-108) mmHg ABG HCO3 (21-25) mmol/L ABG Total CO2 (19-24) mmol/L ABG O2 Saturation (94-97) % Sodium (137-145) mmol/L Carbon Dioxide (22-30) mmol/L Creatinine (0.66-1.25) mg/dL Glucose (74-99) mg/dL POC Glucose (mg/dL) 146 H (70-110) mg/dL CSF Glucose (40-70) mg/dL 05/25/23 05/25/23 05/25/23 Range/Units 04:13 05:23 06:32 RBC (4.30-5.90) m/uL Hgb (13.0-17.5) gm/dL Hct (39.0-53.0) % RDW (11.5-15.5) % Lymphocytes # (1.0-4.8) k/uL PT (10.0-12.5) sec INR (<1.2) APTT (22.0-30.0) sec ABG pCO2 48 H (35-45) mmHg ABG pO2 123 H (83-108) mmHg ABG HCO3 31 H (21-25) mmol/L ABG Total CO2 33 H (19-24) mmol/L ABG O2 Saturation 99.6 H (94-97) % Sodium 136 L (137-145) mmol/L Carbon Dioxide 31 H (22-30) mmol/L Creatinine 0.64 L (0.66-1.25) mg/dL Glucose 136 H (74-99) mg/dL POC Glucose (mg/dL) 170 H (70-110) mg/dL CSF Glucose (40-70) mg/dL 05/25/23 05/25/23 Range/Units 10:02 11:52 RBC (4.30-5.90) m/uL Hgb (13.0-17.5) gm/dL Hct (39.0-53.0) % RDW (11.5-15.5) % Lymphocytes # (1.0-4.8) k/uL PT (10.0-12.5) sec INR (<1.2) APTT 46.6 H (22.0-30.0) sec ABG pCO2 (35-45) mmHg ABG pO2 (83-108) mmHg ABG HCO3 (21-25) mmol/L ABG Total CO2 (19-24) mmol/L ABG O2 Saturation (94-97) % Sodium (137-145) mmol/L Carbon Dioxide (22-30) mmol/L Creatinine (0.66-1.25) mg/dL Glucose (74-99) mg/dL POC Glucose (mg/dL) 147 H (70-110) mg/dL CSF Glucose (40-70) mg/dL Microbiology - Last 24 Hours (Table) 05/22/23 21:19 Gram Stain - Final Sputum Sputum Culture - Final Christal species, not albicans 05/24/23 14:45 CSF Gram Stain - Preliminary Cerebral Spinal Fluid 05/19/23 08:55 Blood Culture - Final Blood 05/19/23 08:40 Blood Culture - Final Blood
--- NOTE | 2023-05-25 13:17 | P.PN ---
Subjective Progress Note Date: 05/25/23 Principal diagnosis: Metastatic adenocarcinoma of the lung with hemoptysis 63-year-old male patient with metastatic pulmonary adenocarcinoma and the patient has a bulky tumor in his chest with extensive adenopathy involving the right hilum and the right paratracheal and subcarinal area the largest portions measuring 8 x 86.3 cm in size in the hilar area and 5.6 x 3.5 cm inside the subcarinal and infrahilar area. There is also lymphadenopathy involving the left hilum other smaller lymph nodes within the mediastinum and the patient has small pleural effusion right more than left along with compressive atelectatic changes and pleural-based nodules in the right and extensive groundglass changes in the left upper lobe with numerous nodular densities up to 16 x 13 mm in size. Smaller nodules also seen in the left lung in addition. In summary, the patient disease is metastatic as the patient also has extensive heterogeneous liver concerning for diffuse metastases and a stain is also enlarged and the patient has multiple soft tissue masses/lymphadenopathy in the upper abdomen. During his last admission the patient was also found to have a left occipital Enhancing lesion suspicious for [employer] metastases. The patient was admitted to the hospital on 05/12/2023 for shortness of breath and hemoptysis. His hemoptysis was attributed to his metastatic lung cancer and the patient was taken anticoagulation with warfarin and his INR was supratherapeutic. At that time, his INR was reversed, however, the patient in the going back on warfarin as the patient is a mechanical aortic valve and there is no reasonable alternatives to that and were targeting a titer INR control between 2 and 2.5. He was supposed to follow-up with oncology on outpatient basis. In addition oncology saw him during his hospital stay and thought that the brain lesion was small and there was no need for radiation this point in time. Following his discharge, the patient encounter ongoing hemoptysis which never stopped since his discharge. He came into the hospital for further advice. Total amount of blood was probably in the form of 10 mL overnight mixed with mucus. No blood clots. No worsening shortness of breath. His chronically dyspneic and is also having hypoxic respiratory failure maintained on oxygen. He has atrial fibrillation, coronary artery disease, and previous aortic valve replacement with a mechanical valve. I did see the patient during his last hospital stay and the patient was thought to be clinically stable for discharge to be followed up by oncology. Fi nal decision on treatment for his lung cancer has not been made as the patient is awaiting PDL 1 and NGS analysis prior to quitting for any further treatment. He was supposed to be seen by medical oncology early next week. For now, the patient's echoes at 8.5, hemoglobin is 8.2 which is stable since his discharge. INR is at 2.7 with a PT of 27. BUN is a 50 with a creatinine of 1.01 and sodium level is 128. His oxygenation is stable at 3 L with a pulse ox of 99%. Computed tomography scan of the chest was again ordered The patient is seen today 05/20/2023 in follow-up on the regular medical floor. He is awake and alert in no acute distress. He denies any further hemoptysis. He has some right-sided chest discomfort on inhalation. Computed tomography scan of the chest from last evening shows overall significant progression of metastatic disease with extensive soft tissue metastasis/nodes in the neck and chest showing appreciable increase in size. There is worsening, lumbar mediastinal and hilar soft tissue masses/adenopathy resultant slightly worsened narrowing of branches of the right pulmonary artery and bronchi in the right hilum. New pulmonary emboli in the right lower lobe artery, segmental and sent segmental branches. Interval worsening of opacity in the right upper lobe, concerning for spread of tumor with possible superimposed pneumonitis. This obscures some the lung nodules evident before. There are also enlarging nodules in the superior segment of the right lower lobe. Small bilateral pleural effusions. Improved groundglass opacities and multiple nodules in the left lung, with residual nodularity. Worsening extensive upper abdominal metastatic disease, with significant enlargement of metastasis/nodes as above. Doppler of the lower extremity was negative for DVT. MRI of the brain reveals a 1.4 cm ring enhancing lesion with some mild vasogenic edema adjacent right frontal lobe. Suspicious for metastatic lesion. White count 8.2. Hemoglobin 7.8. INR 3.6. Sodium 134. Potassium 4.3. Bicarb 23. BUN 7. Creatinine 0.8. Glucose 99. He remains on DuoNeb inhalations, Symbicort antibiotics in the form of ceftriaxone. He is continued on Decadron 4 mg IVP every 6 hours. The patient is seen today May 21, 2023 and follow-up on the regular medical floor. He is sitting up in a chair at the bedside. Awake and alert in no acute distress. Denies any worsening shortness of breath, cough or congestion. No hemoptysis. He remains on DuoNeb ventilations, Symbicort, Decadron. Antibiotics in the form of ceftriaxone. INR 1.1. The plan is for PICC line placement and to be initiated on carboplatin today. He remains on a heparin drip. The patient is seen today May 22, 2023 in follow-up on the regular medical floor. He is currently resting in bed. He did have some issues with agitation and combativeness requiring Haldol and soft restraints. vehicle glass technician is at the bedside. He is maintaining good O2 saturation in the mid 90s on room air. He has been afebrile. Hemodynamically stable. His hemoglobin is 6.4 and he is receiving 1 unit of packed red blood cells. Platelets 298. White count 8.4. INR 1.2. Sodium 139. Potassium 4.3. Bicarb 21. BUN 12. Creatinine 0.7. Glucose 124. He remains on a heparin drip. Remains on antibiotics in the form of ceftriaxone. Decadron 4 mg IVP every 8 hours. Continued on DuoNeb ventilations, Symbicort. Normal saline at 75 MLS per hour. He did receive carboplatin and Alimta yesterday. Patient was reevaluated today on May 23/2024, patient decompensated this morning, he became extremely short of breath, patient was also becoming more and more combative, he was having more and more episodes of hemoptysis, and I recommended transferring the patient to the ICU. Patient was placed on multiple medications to calm him down, however he continued to deteriorate and he was developing more and more shortness of breath and more desaturations. Hence I was notified about the patient and I recommended immediate intubation. Patient was already transferred to the ICU at the time. Present patient is intubated and mechanically ventilated, he is on assist-control rate of 18 tidal volume 400 FiO2 35% and PEEP of 5 ABG showed a pO2 of more than 400 on 100% pCO2 44 pH of 7.31. Patient is on propofol 70 mcg/kg/min norepinephrine 0.04 mcg/kg/min Fentanyl at 1 mcg/kg/h he is also 1.9 normal saline at [facility], receiving ceftriaxone and receiving Decadron. Went ahead and performed bronchoscopy on this patient, there was no active bleeding noted, there is definitely a large tumor involving the apical segment of the right upper lobe, but no active bleeding in the right upper lobe was noted. Established a radial arterial line for hemodynamic monitoring, discussed his condition with the , and made aware of the severity of his illness, she seems to be reasonable, and she clearly stated to me that if his condition gets any worse and hopeless, she will definitely consider comfort care measures at that point. WBC count today is 10.9 hemoglobin 7.9. Follow-up ABG this morning showed a pO2 of 205 pCO2 34 pH of 7.47, this was on 50% FiO2 basic metabolic profile is normal renal profile is normal chest x-ray showed mild midlung infiltrate right side, possible atelectasis Patient with presented today on 05/24/2023, patient remains in the ICU, intubated and mechanically ventilated, he is on assist-control rate of 18 tidal volume 400 FiO2 35% PEEP of 5 ABG showed a pO2 of 106 pCO2 64 pH of 7.29, hence his rate was increased up to 22, and tidal volume increased to 450. Patient was on Nimbex last night, and this was discontinued this morning, he is on norepinephrine at 0.03 mcg/kg/min Fentanyl 2 mcg/kg/h propofol 70 mcg/kg/min is also on vital HP at 30 cc/h. Remains empirically on Zosyn, patient has good urine output, he is scheduled to have lumbar puncture today by anesthesia. Chest x-ray shows endotracheal tube in the proper position, and orogastric tube is also in the proper position, opacity noted in the right upper lobe and right lower lobe related to his recent episode of hemoptysis and right upper lobe malignancy bronchial washings/cultures are still pending Gram stain from the washing is showing mostly few yeast. Blood cultures from the remain negative. WBC count is 8 hemoglobin 7.8 basic metabolic profile is normal and r enal profile is normal Patient evaluated today on 05/25/2023, remains in the ICU, intubated and mech anically ventilated he is on assist-control rate of 22 tidal volume 450 FiO2 35% PEEP of 5 ABG showed a pO2 of 123 pCO2 48 pH of 7.42 hence no changes were made in his ventilator settings. Patient is requiring significant amount of sedation, in spite of being on relatively high-dose of fentanyl at 2 mcg/kg/h and relatively high-dose of propofol at 75 mcg/kg/min, patient is still getting out of bed, restless agitated, and needs close monitoring. Today I added Versed at 5 mg/h, and hopefully we could go down on the propofol and on the fentanyl. Patient received Haldol he also received Seroquel, and it is taking a lot of medication to keep him calm and adequately ventilated. Haldol was added and Seroquel was increased to 50 mg twice daily. Patient underwent lumbar puncture and the results of which are pending. Patient is being followed by neurology. Preliminary finding on the spinal fluid seems to be normal. Patient was placed back on anticoagulation therapy, his WBC count is 7.4 hemoglobin 7.2. Platelets are 2 99,000 Basic metabolic profile is normal renal profile is normal. Objective - Vital Signs Vital signs: Vital Signs Temp 98.7 F 05/25/23 08:00 Pulse 82 05/25/23 13:00 Resp 22 05/25/23 13:00 BP 97/53 05/24/23 00:00 Pulse Ox 99 05/25/23 13:00 FiO2 35 05/25/23 11:13 Intake & Output 05/24/23 05/25/23 05/25/23 18:59 06:59 18:59 Intake Total 3427.073 4520.222 831.660 Output Total 1645 1785 475 Balance -420.635 -173.778 356.660 Weight 79.7 kg 78.2 kg Intake: IV 233 399 138 .9NS 200 260 120 .9NS Pressure Bag 33 3 9 A line 36 9 Piperacillin-Tazobactam 3 100 .375 gm In Sodium Chloride 0.9% 100 ml @ 25 mls/hr IVPB Q8HR ROB Rx# :[id number] Intake, IV Titration 632.365 726.222 468.660 Amount Cisatracurium 200 mg In 167.131 Sodium Chloride 0.9% 180 ml @ 1 MCG/KG/MIN 4.782 mls/hr IV .Q24H ROB Rx#: [id number] Heparin Sod,Pork in 0.45% 146.010 103.99 NaCl 25,000 unit In 0.45 % NaCl 1 250ml.bag @ 12 UNITS/KG/HR 9.564 mls/hr IV .Q24H ROB Rx#: [id number] Norepinephrine 8 mg In 78.596 42.452 Sodium Chloride 0.9% 250 ml @ 0.03 MCG/KG/MIN 4. 435 mls/hr IV .Q24H ROB Rx#:[id number] Piperacillin-Tazobactam 3 100 .375 gm In Sodium Chloride 0.9% 100 ml @ 25 mls/hr IVPB Q8HR ROB Rx# :[id number] fentaNYL (PF). 1,000 mcg 100.000 156.302 98.301 In Sodium Chloride 0.9% 80 ml @ 0.5 MCG/KG/HR 3. 82 mls/hr IV .Q24H ROB Rx #:[id number] propofoL 1,000 mg In 186.638 381.458 266.369 Empty Bag 1 bag @ 15 MCG/ KG/MIN 6.876 mls/hr IV . [id number] ROB Rx#:[id number] Tube Feeding 269 396 165 Other 90 90 60 Output: Urine 1645 1785 475 Other: Voiding Method Indwelling Catheter Indwelling Catheter ABP, PAP, CO, CI - Last Documented Arterial Blood Pressure 108/53 - Exam General: Reveals 63-year-old white male intubated mechanically ventilated, sedated. Patient is requiring significant amount of sedation to keep him calm Head: Atraumatic, normocephalic endotracheal tube and orogastric tube are intact Skin: Skin is warm and dry and no rashes or lesions are noted. Eye: Pupils are equal, round and reactive to light, extra-ocular movements are intact; there is normal conjunctiva bilaterally. Ears, nose, mouth and throat: There are moist mucous membranes and no oral lesions. Neck: The neck is supple, there is no tenderness or JVD. Cardiovascular: Regular rhythm, no S3 gallop. No murmur. Respiratory: Good breath sound bilaterally no rhonchi no wheeze Gastrointestinal: Soft, non-distended, non-tender abdomen without masses or organomegaly noted Neurologic: Cannot assess patient is sedated on propofol and fentanyl, and Versed was added. Psychiatric: Could not assess. Skin: Evidence of psoriatic lesions and dry skin - Labs CBC & Chem 7: 05/25/23 04:13 05/25/23 04:13 Labs: Abnormal Lab Results - Last 24 Hours (Table) 05/24/23 05/24/23 05/24/23 Range/Units 14:45 15:18 20:20 RBC (4.30-5.90) m/uL Hgb (13.0-17.5) gm/dL Hct (39.0-53.0) % RDW (11.5-15.5) % Lymphocytes # (1.0-4.8) k/uL PT 13.2 H (10.0-12.5) sec INR 1.2 H (<1.2) APTT (22.0-30.0) sec ABG pCO2 (35-45) mmHg ABG pO2 (83-108) mmHg ABG HCO3 (21-25) mmol/L ABG Total CO2 (19-24) mmol/L ABG O2 Saturation (94-97) % Sodium (137-145) mmol/L Carbon Dioxide (22-30) mmol/L Creatinine (0.66-1.25) mg/dL Glucose (74-99) mg/dL POC Glucose (mg/dL) 189 H (70-110) mg/dL CSF Glucose 93 H (40-70) mg/dL 05/24/23 05/25/23 05/25/23 Range/Units 23:57 04:13 04:13 RBC 2.75 L (4.30-5.90) m/uL Hgb 7.2 L (13.0-17.5) gm/dL Hct 22.4 L (39.0-53.0) % RDW 16.0 H (11.5-15.5) % Lymphocytes # 0.2 L (1.0-4.8) k/uL PT (10.0-12.5) sec INR 1.2 H (<1.2) APTT 34.8 H (22.0-30.0) sec ABG pCO2 (35-45) mmHg ABG pO2 (83-108) mmHg ABG HCO3 (21-25) mmol/L ABG Total CO2 (19-24) mmol/L ABG O2 Saturation (94-97) % Sodium (137-145) mmol/L Carbon Dioxide (22-30) mmol/L Creatinine (0.66-1.25) mg/dL Glucose (74-99) mg/dL POC Glucose (mg/dL) 146 H (70-110) mg/dL CSF Glucose (40-70) mg/dL 05/25/23 05/25/23 05/25/23 Range/Units 04:13 05:23 06:32 RBC (4.30-5.90) m/uL Hgb (13.0-17.5) gm/dL Hct (39.0-53.0) % RDW (11.5-15.5) % Lymphocytes # (1.0-4.8) k/uL PT (10.0-12.5) sec INR (<1.2) APTT (22.0-30.0) sec ABG pCO2 48 H (35-45) mmHg ABG pO2 123 H (83-108) mmHg ABG HCO3 31 H (21-25) mmol/L ABG Total CO2 33 H (19-24) mmol/L ABG O2 Saturation 99.6 H (94-97) % Sodium 136 L (137-145) mmol/L Carbon Dioxide 31 H (22-30) mmol/L Creatinine 0.64 L (0.66-1.25) mg/dL Glucose 136 H (74-99) mg/dL POC Glucose (mg/dL) 170 H (70-110) mg/dL CSF Glucose (40-70) mg/dL 05/25/23 05/25/23 Range/Units 10:02 11:52 RBC (4.30-5.90) m/uL Hgb (13.0-17.5) gm/dL Hct (39.0-53.0) % RDW (11.5-15.5) % Lymphocytes # (1.0-4.8) k/uL PT (10.0-12.5) sec INR (<1.2) APTT 46.6 H (22.0-30.0) sec ABG pCO2 (35-45) mmHg ABG pO2 (83-108) mmHg ABG HCO3 (21-25) mmol/L ABG Total CO2 (19-24) mmol/L ABG O2 Saturation (94-97) % Sodium (137-145) mmol/L Carbon Dioxide (22-30) mmol/L Creatinine (0.66-1.25) mg/dL Glucose (74-99) mg/dL POC Glucose (mg/dL) 147 H (70-110) mg/dL CSF Glucose (40-70) mg/dL Microbiology - Last 24 Hours (Table) 05/22/23 21:19 Gram Stain - Final Sputum Sputum Culture - Final Christal species, not albicans 05/24/23 14:45 CSF Gram Stain - Preliminary Cerebral Spinal Fluid 05/19/23 08:55 Blood Culture - Final Blood 05/19/23 08:40 Blood Culture - Final Blood Assessment and Plan Assessment: Impression: Acute hypoxic respiratory failure secondary to metastatic lung cancer and recurrent episodes of hemoptysis, patient was intubated and mechanically ventilated on 05/23/2023 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 Altered mental status as noted above Acute pulmonary emboli, back on heparin. Acute on chronic anemia patient required 1 unit of packed RBCs since admission Chronic atrial fibrillation History of mechanical aortic valve placed in 2019 patient had previous history of bicuspid aortic valve History of coronary artery disease and previous CABG History of LV dysfunction and recurrent episodes of systolic congestive heart failure Benign essential hypertension Dyslipidemia Psoriasis History of traumatic brain injury Status post lumbar puncture on 05/24/2023 Commendation: Continue ventilatory support, patient is requiring significant amount of sedation, not quite ready for any weaning cannot even go down on the amount of sedation slightly at this point Continue hemodynamic support restarted heparin Continue sedation patient is not ready for any weaning at this point. Bronchoscopy was performed cultures are negative so far. Continue empiric antibiotics. Chemotherapy as per oncology on the case, patient was started on carboplatin and Alimta Patient is critically ill. Awaiting the final report on his lumbar puncture Critical care time is over 30 minutes Time with Patient: Greater than 30
[2023-05-25 18:55] LABS: Glucose,Whole Blood 124 mg/dL (70-110)
[2023-05-25 22:49] LABS: Glucose,Whole Blood 138 mg/dL (70-110)
[2023-05-26 00:05] LABS: Glucose,Whole Blood 131 mg/dL (70-110)
[2023-05-26 04:57] LABS: Anisocytosis Slight; Basophils % (A) 0 %; Eosinophils % (A) 0 %; HCT 23.3 % (39.0-53.0); HGB 7.4 gm/dL (13.0-17.5); Hypochromasia Marked; Lymphocytes # (A) 0.2 k/uL (1.0-4.8); Lymphocytes % (A) 3 %; MCH 25.8 pg (25.0-35.0); MCHC 31.6 g/dL (31.0-37.0); MCV 81.6 fL (80.0-100.0); Mean Platelet Volume 8.5; Monocytes # (A) 0.1 k/uL (0-1.0); Monocytes % (A) 1 %; Neutrophils # (A) 6.3 k/uL (1.3-7.7); Neutrophils % (A) 96 %; Platelet Count 293 k/uL (150-450); Poikilocytosis Slight; RBC 2.85 m/uL (4.30-5.90); RDW 16.3 % (11.5-15.5); WBC 6.5 k/uL (3.8-10.6)
[2023-05-26 05:04] LABS: African American GFR (CKD) >90 (>60 ml/min/1.73 sqM); Anion Gap 3 mmol/L; Blood Urea Nitrogen 23 mg/dL (9-20); Carbon Dioxide 30 mmol/L (22-30); Chloride 104 mmol/L (98-107); Glucose 134 mg/dL (74-99); Non-African American GFR(CKD) >90 (>60 ml/min/1.73 sqM); Sodium 137 mmol/L (137-145)
[2023-05-26 05:37] LABS: Glucose,Whole Blood 131 mg/dL (70-110)
[2023-05-26 06:27] LABS: ABG Base Excess 7.6 mmol/L; ABG HCO3 32 mmol/L (21-25); ABG Oxygen Saturation 99.3 % (94-97); ABG PCO2 45 mmHg (35-45); ABG PH 7.46 (7.35-7.45); ABG PO2 116 mmHg (83-108); ABG TCO2 33 mmol/L (19-24)
[2023-05-26 06:27] LABS: Glucose,Whole Blood 139 mg/dL (70-110)
--- NOTE | 2023-05-26 09:55 | XR ---
EXAMINATION TYPE: XR chest 1V portable DATE OF EXAM: 05/26/2023 COMPARISON: 05/25/2023 INDICATION: Difficulty breathing TECHNIQUE: Single frontal view of the chest is obtained. FINDINGS: The heart size is normal. The pulmonary vasculature is normal. Mild infiltrates in the right perihilar and upper lung field, improved from comparison Endotracheal tube tip is above the maritza. Nasogastric tube transverses the thorax. Distal superior vena cava region IMPRESSION: 1. Stable right perihilar infiltrate. 2. Lines and catheters stable from comparison
--- NOTE | 2023-05-26 10:52 | PN ---
PROGRESS NOTE SUBJECTIVE: A 63-year-old gentleman with history of metastatic lung cancer with vent requiring respiratory failure and atrial fibrillation with poorly controlled ventricular rate, whom we are following because of atrial fibrillation. There is history of mechanical aortic valve replacement, was on Coumadin, currently is on IV heparin. The patient underwent lumbar puncture with the CSF fluid analysis. So far, the workup is negative. OBJECTIVE: GENERAL: On exam, the patient appears intubated, sedated. VITAL SIGNS: Heart rate is around 100 beats per minute, blood pressure is 110/70, respiratory rate is 18. CHEST: Reveals diminished air entry bilaterally. HEART: Reveals first and second heart sounds. Irregular rhythm and a systolic murmur at the apex. ABDOMEN: Soft. EXTREMITIES: Did not reveal any edema. Peripheral pulses are palpable. LABORATORY DATA: Labs show that his hemoglobin is 7.4, platelet count is 293. Potassium is 5, creatinine is 0.6. ASSESSMENT: 1. Permanent atrial fibrillation with poorly controlled ventricular rate. 2. Vent requiring respiratory failure. 3. Metastatic lung cancer. 4. History of aortic valve replacement. PLAN: The patient will continue IV heparin, metoprolol 25 t.i.d., and amiodarone 200 b.i.d. MMODL / IJN: [id number] /
[2023-05-26 11:33] LABS: Glucose,Whole Blood 142 mg/dL (70-110)
--- NOTE | 2023-05-26 12:11 | P.PN ---
Subjective Progress Note Date: 05/26/23 This is a 30-year-old male who comes in with complaints of hemoptysis. Patient had chest CT showing progression of meta static lymph nodes in the neck chest and upper abdomen. There is also concern for bronchial invasion and with a right upper lobe infiltrate. He was admitted to the hospital with a consult placed to hematology with plans to undergo induction chemotherapy and radiation. Patient will have brain MRI completed today. He also reports not having a bowel movement. Blood work today shows white count 8.21, hemoglobin 7.8, sodium 134, BUN 7.1, creatinine 0.8. 05/21/2023 Patient is monitored to the medical floor he is being followed closely by oncology with plans for induction chemotherapy today. Not yet had a bowel movement but had not received MiraLAX we will try that first before giving an enema or stronger laxative. Abdomen is softer today and he does have positive normoactive bowel sounds throughout. Patient had a PICC line inserted today. Brain MRI shows a 1.4 cm ring-enhancing lesion with some mild vasogenic edema adjacent to the right frontal lobe findings are concerning for metastatic lesion he has been started on IV dexamethasone by oncology. Recommendations were made to hold warfarin at this time and INR was reversed patient was given the 5 mg dose of vitamin K. His INR today is 1.1 and he has been initiated on an IV heparin drip at this time. 05/22/2023 Patient is evaluated today resting in bed he is currently in 2-point restraints his is sitting at the bedside. Patient did receive his first dose of IV chemotherapy yesterday he is also on Decadron for the vasogenic edema. He was significantly agitated last night he did get out of bed fell in the hallway he was restrained and did require sedation to calm down. We would currently recommend to stop the Xanax decrease the frequency of the oxycodone and avoid Dilaudid if possible. Patient will be given Seroquel at at bedtime and also daily as needed for acute agitation. Patient continues on a course of IV ceftriaxone. He is also on IV heparin with warfarin being held. Status post [facility] his labs today are showing a hemoglobin of 7.4, platelet count of 298, white count of 8.41. His electrolytes are within normal limits. 05/23. Patient seen and examined. Patient currently intubated and sedated. Labs at this morning showed WBC 10.9, hemoglobin 7.9, platelet count 297 05/24. Patient seen and examined. Continues to be intubated. Lab work done showed WBC 8, hemoglobin 7.8, platelet count 283, sodium 1:30, potassium 5.1, magnesium 2.3, total bilirubin 0.5, 05/25. Patient seen and examined. Continues to be intubated. Patient had lumbar puncture done. Lab work done that showed WBC 1.4, hemoglobin 7.2, platelet count 299, sodium 138, potassium 4.6, BUN 18, creatinine 0.64 05/26. Patient seen and examined. Lab work done this morning showed WBC 6.5, hemoglobin 7.4, platelet count 293, sodium 138, potassium 5, BUN 23, creatinine 0.64. Currently on Versed, fentanyl and propofol. CSF fluid analysis reviewed, cytology pending. REVIEW OF SYSTEMS: Currently intubated and sedated PHYSICAL EXAMINATION: GENERAL: The patient is intubated and sedated HEENT: Pupils are round and equally reacting to light. No pharyngeal erythema. No thyromegaly. CARDIOVASCULAR: S1 and S2 present. No murmurs, rubs, or gallops. PULMONARY: Coarse Breath sounds bilaterally, no wheezing or crackles. ABDOMEN: Soft, nontender, nondistended, normoactive bowel sounds. No palpable organomegaly. MUSCULOSKELETAL: No joint swelling or deformity. EXTREMITIES: No cyanosis, clubbing, or pedal edema. NEUROLOGICAL: Intubated and sedated SKIN: No rashes. Assessment and plan Episodic hemoptysis due to his underlying lung cancer probably invading the right upper lobe bronchus Metastatic adenocarcinoma of the lung and diagnosis was made by biopsy of the exiting mass and intestinal mass. The patient has [employer] metastases. Brain metastases Altered mental status secondary to above Acute pulmonary emboli secondary to above, currently on heparin drip Acute on chronic anemia Chronic atrial fibrillation Mechanical aortic valve placed in 2019 Coronary artery disease bypass surgery, mild nonobstructive CAD current cardiac catheterization from [facility] 2019 CHF with an underlying impaired systolic heart failure with an ejection fraction of 35-40% Hypertension Hyperlipidemia Psoriasis Previous history of traumatic brain injury Monitor vital signs Monitor CBC Monitor CMP Continue vent management per ICU Aggressive bronchopulmonary hygiene continue telemetry monitoring Continue pharmacy dose heparin Continue IV propofol and fentanyl Continue IV Zosyn Continue tube feeding Continue amiodarone and Lopressor Repeat MRI brain-mood and behavioral changes-showing several lesions and vasogenic edema. Currently on IV Decadron 4 mg every 8 hourly. S/p lumbar puncture on 05/24 to rule out leptomeningeal metastasis, cytology pending Continue IV Protonix Patient started on chemotherapy with carboplatin and Alimta on 05/21 Pulmonology following Hematology oncology following Labs and medication were reviewed.. Continue same treatment. Continue with symptomatic treatment. Resume home medication. Monitor labs and vitals. DVT and GI prophylaxis. Further recommendations as per clinical course of the patient Dictation was produced using [email or web address] dictation software. please excuse any grammatical, word or spelling errors. Objective - Vital Signs Vital signs: Vital Signs Temp 98.3 F 05/26/23 04:00 Pulse 106 H 05/26/23 08:30 Resp 20 05/26/23 07:00 BP 107/63 05/25/23 18:00 Pulse Ox 99 05/26/23 07:00 FiO2 35 05/26/23 07:51 Intake & Output 05/25/23 05/26/23 05/26/23 18:59 06:59 18:59 Intake Total 4202.033 0668.974 105.47 Output Total 1620 2020 Balance -138.537 -451.026 105.47 Weight 79 kg Intake: IV 276 376 .9NS 240 240 .9NS Pressure Bag 9 A line 27 36 Piperacillin-Tazobactam 3 100 .375 gm In Sodium Chloride 0.9% 100 ml @ 25 mls/hr IVPB Q8HR ROB Rx# :[id number] Intake, IV Titration 752.463 726.974 105.47 Amount Heparin Sod,Pork in 0.45% 103.99 243.882 NaCl 25,000 unit In 0.45 % NaCl 1 250ml.bag @ 12 UNITS/KG/HR 9.564 mls/hr IV .Q24H ROB Rx#: [id number] Midazolam HCl 50 mg In 28.333 Sodium Chloride 0.9% 40 ml @ 1 MG/HR 1 mls/hr IV .Q24H ROB Rx#:[id number] Norepinephrine 8 mg In 69.852 53.368 5.47 Sodium Chloride 0.9% 250 ml @ 0.03 MCG/KG/MIN 4. 435 mls/hr IV .Q24H ROB Rx#:[id number] fentaNYL (PF). 1,000 mcg 198.301 99.893 In Sodium Chloride 0.9% 80 ml @ 0.5 MCG/KG/HR 3. 82 mls/hr IV .Q24H ROB Rx #:[id number] propofoL 1,000 mg In 380.320 301.498 100 Empty Bag 1 bag @ 15 MCG/ KG/MIN 6.876 mls/hr IV . [id number] ROB Rx#:[id number] Tube Feeding 363 396 Other 90 70 Output: Urine 1620 2020 Other: Voiding Method Indwelling Catheter Indwelling Catheter ABP, PAP, CO, CI - Last Documented Arterial Blood Pressure 105/45 - Labs CBC & Chem 7: 05/26/23 04:30 05/26/23 04:30 Labs: Abnormal Lab Results - Last 24 Hours (Table) 05/25/23 05/25/23 05/25/23 Range/Units 10:02 11:52 18:53 RBC (4.30-5.90) m/uL Hgb (13.0-17.5) gm/dL Hct (39.0-53.0) % RDW (11.5-15.5) % Lymphocytes # (1.0-4.8) k/uL APTT 46.6 H (22.0-30.0) sec ABG pH (7.35-7.45) ABG pO2 (83-108) mmHg ABG HCO3 (21-25) mmol/L ABG Total CO2 (19-24) mmol/L ABG O2 Saturation (94-97) % BUN (9-20) mg/dL Creatinine (0.66-1.25) mg/dL Glucose (74-99) mg/dL POC Glucose (mg/dL) 147 H 124 H (70-110) mg/dL 05/25/23 05/26/23 05/26/23 Range/Units 22:48 00:04 04:30 RBC (4.30-5.90) m/uL Hgb (13.0-17.5) gm/dL Hct (39.0-53.0) % RDW (11.5-15.5) % Lymphocytes # (1.0-4.8) k/uL APTT 32.5 H (22.0-30.0) sec ABG pH (7.35-7.45) ABG pO2 (83-108) mmHg ABG HCO3 (21-25) mmol/L ABG Total CO2 (19-24) mmol/L ABG O2 Saturation (94-97) % BUN (9-20) mg/dL Creatinine (0.66-1.25) mg/dL Glucose (74-99) mg/dL POC Glucose (mg/dL) 138 H 131 H (70-110) mg/dL 05/26/23 05/26/23 05/26/23 Range/Units 04:30 04:30 05:36 RBC 2.85 L (4.30-5.90) m/uL Hgb 7.4 L (13.0-17.5) gm/dL Hct 23.3 L (39.0-53.0) % RDW 16.3 H (11.5-15.5) % Lymphocytes # 0.2 L (1.0-4.8) k/uL APTT (22.0-30.0) sec ABG pH (7.35-7.45) ABG pO2 (83-108) mmHg ABG HCO3 (21-25) mmol/L ABG Total CO2 (19-24) mmol/L ABG O2 Saturation (94-97) % BUN 23 H (9-20) mg/dL Creatinine 0.64 L (0.66-1.25) mg/dL Glucose 134 H (74-99) mg/dL POC Glucose (mg/dL) 131 H (70-110) mg/dL 05/26/23 05/26/23 Range/Units 06:26 06:50 RBC (4.30-5.90) m/uL Hgb (13.0-17.5) gm/dL Hct (39.0-53.0) % RDW (11.5-15.5) % Lymphocytes # (1.0-4.8) k/uL APTT (22.0-30.0) sec ABG pH 7.46 H (7.35-7.45) ABG pO2 116 H (83-108) mmHg ABG HCO3 32 H (21-25) mmol/L ABG Total CO2 33 H (19-24) mmol/L ABG O2 Saturation 99.3 H (94-97) % BUN (9-20) mg/dL Creatinine (0.66-1.25) mg/dL Glucose (74-99) mg/dL POC Glucose (mg/dL) 139 H (70-110) mg/dL Microbiology - Last 24 Hours (Table) 05/23/23 11:40 Gram Stain - Preliminary Bronchial Washings - Random Bronchial Washings Culture - Preliminary Yeast 05/22/23 21:19 Gram Stain - Final Sputum Sputum Culture - Final Christal species, not albicans 05/24/23 14:45 CSF Gram Stain - Preliminary Cerebral Spinal Fluid
--- NOTE | 2023-05-26 12:29 | P.PN ---
Subjective Progress Note Date: 05/26/23 Principal diagnosis: Metastatic adenocarcinoma of the lung with hemoptysis 63-year-old male patient with metastatic pulmonary adenocarcinoma and the patient has a bulky tumor in his chest with extensive adenopathy involving the right hilum and the right paratracheal and subcarinal area the largest portions measuring 8 x 86.3 cm in size in the hilar area and 5.6 x 3.5 cm inside the subcarinal and infrahilar area. There is also lymphadenopathy involving the left hilum other smaller lymph nodes within the mediastinum and the patient has small pleural effusion right more than left along with compressive atelectatic changes and pleural-based nodules in the right and extensive groundglass changes in the left upper lobe with numerous nodular densities up to 16 x 13 mm in size. Smaller nodules also seen in the left lung in addition. In summary, the patient disease is metastatic as the patient also has extensive heterogeneous liver concerning for diffuse metastases and a stain is also enlarged and the patient has multiple soft tissue masses/lymphadenopathy in the upper abdomen. During his last admission the patient was also found to have a left occipital Enhancing lesion suspicious for [employer]OVING [employer] metastases. The patient was admitted to the hospital on 05/12/2023 for shortness of breath and hemoptysis. His hemoptysis was attributed to his metastatic lung cancer and the patient was taken anticoagulation with warfarin and his INR was supratherapeutic. At that time, his INR was reversed, however, the patient in the going back on warfarin as the patient is a mechanical aortic valve and there is no reasonable alternatives to that and were targeting a titer INR control between 2 and 2.5. He was supposed to follow-up with oncology on outpatient basis. In addition oncology saw him during his hospital stay and thought that the brain lesion was small and there was no need for radiation this point in time. Following his discharge, the patient encounter ongoing hemoptysis which never stopped since his discharge. He came into the hospital for further advice. Total amount of blood was probably in the form of 10 mL overnight mixed with mucus. No blood clots. No worsening shortness of breath. His chronically dyspneic and is also having hypoxic respiratory failure maintained on oxygen. He has atrial fibrillation, coronary artery disease, and previous aortic valve replacement with a mechanical valve. I did see the patient during his last hospital stay and the patient was thought to be clinically stable for discharge to be followed up by oncology. Fi nal decision on treatment for his lung cancer has not been made as the patient is awaiting PDL 1 and NGS analysis prior to quitting for any further treatment. He was supposed to be seen by medical oncology early next week. For now, the patient's echoes at 8.5, hemoglobin is 8.2 which is stable since his discharge. INR is at 2.7 with a PT of 27. BUN is a 50 with a creatinine of 1.01 and sodium level is 128. His oxygenation is stable at 3 L with a pulse ox of 99%. Computed tomography scan of the chest was again ordered The patient is seen today 05/20/2023 in follow-up on the regular medical floor. He is awake and alert in no acute distress. He denies any further hemoptysis. He has some right-sided chest discomfort on inhalation. Computed tomography scan of the chest from last evening shows overall significant progression of metastatic disease with extensive soft tissue metastasis/nodes in the neck and chest showing appreciable increase in size. There is worsening, lumbar mediastinal and hilar soft tissue masses/adenopathy resultant slightly worsened narrowing of branches of the right pulmonary artery and bronchi in the right hilum. New pulmonary emboli in the right lower lobe artery, segmental and sent segmental branches. Interval worsening of opacity in the right upper lobe, concerning for spread of tumor with possible superimposed pneumonitis. This obscures some the lung nodules evident before. There are also enlarging nodules in the superior segment of the right lower lobe. Small bilateral pleural effusions. Improved groundglass opacities and multiple nodules in the left lung, with residual nodularity. Worsening extensive upper abdominal metastatic disease, with significant enlargement of metastasis/nodes as above. Doppler of the lower extremity was negative for DVT. MRI of the brain reveals a 1.4 cm ring enhancing lesion with some mild vasogenic edema adjacent right frontal lobe. Suspicious for metastatic lesion. White count 8.2. Hemoglobin 7.8. INR 3.6. Sodium 134. Potassium 4.3. Bicarb 23. BUN 7. Creatinine 0.8. Glucose 99. He remains on DuoNeb inhalations, Symbicort antibiotics in the form of ceftriaxone. He is continued on Decadron 4 mg IVP every 6 hours. The patient is seen today May 21, 2023 and follow-up on the regular medical floor. He is sitting up in a chair at the bedside. Awake and alert in no acute distress. Denies any worsening shortness of breath, cough or congestion. No hemoptysis. He remains on DuoNeb ventilations, Symbicort, Decadron. Antibiotics in the form of ceftriaxone. INR 1.1. The plan is for PICC line placement and to be initiated on carboplatin today. He remains on a heparin drip. The patient is seen today May 22, 2023 in follow-up on the regular medical floor. He is currently resting in bed. He did have some issues with agitation and combativeness requiring Haldol and soft restraints. fleet administrator is at the bedside. He is maintaining good O2 saturation in the mid 90s on room air. He has been afebrile. Hemodynamically stable. His hemoglobin is 6.4 and he is receiving 1 unit of packed red blood cells. Platelets 298. White count 8.4. INR 1.2. Sodium 139. Potassium 4.3. Bicarb 21. BUN 12. Creatinine 0.7. Glucose 124. He remains on a heparin drip. Remains on antibiotics in the form of ceftriaxone. Decadron 4 mg IVP every 8 hours. Continued on DuoNeb ventilations, Symbicort. Normal saline at 75 MLS per hour. He did receive carboplatin and Alimta yesterday. Patient was reevaluated today on May 23/2024, patient decompensated this morning, he became extremely short of breath, patient was also becoming more and more combative, he was having more and more episodes of hemoptysis, and I recommended transferring the patient to the ICU. Patient was placed on multiple medications to calm him down, however he continued to deteriorate and he was developing more and more shortness of breath and more desaturations. Hence I was notified about the patient and I recommended immediate intubation. Patient was already transferred to the ICU at the time. Present patient is intubated and mechanically ventilated, he is on assist-control rate of 18 tidal volume 400 FiO2 35% and PEEP of 5 ABG showed a pO2 of more than 400 on 100% pCO2 44 pH of 7.31. Patient is on propofol 70 mcg/kg/min norepinephrine 0.04 mcg/kg/min Fentanyl at 1 mcg/kg/h he is also 1.9 normal saline at [facility], receiving ceftriaxone and receiving Decadron. Went ahead and performed bronchoscopy on this patient, there was no active bleeding noted, there is definitely a large tumor involving the apical segment of the right upper lobe, but no active bleeding in the right upper lobe was noted. Established a radial arterial line for hemodynamic monitoring, discussed his condition with the , and made aware of the severity of his illness, she seems to be reasonable, and she clearly stated to me that if his condition gets any worse and hopeless, she will definitely consider comfort care measures at that point. WBC count today is 10.9 hemoglobin 7.9. Follow-up ABG this morning showed a pO2 of 205 pCO2 34 pH of 7.47, this was on 50% FiO2 basic metabolic profile is normal renal profile is normal chest x-ray showed mild midlung infiltrate right side, possible atelectasis Patient with presented today on 05/24/2023, patient remains in the ICU, intubated and mechanically ventilated, he is on assist-control rate of 18 tidal volume 400 FiO2 35% PEEP of 5 ABG showed a pO2 of 106 pCO2 64 pH of 7.29, hence his rate was increased up to 22, and tidal volume increased to 450. Patient was on Nimbex last night, and this was discontinued this morning, he is on norepinephrine at 0.03 mcg/kg/min Fentanyl 2 mcg/kg/h propofol 70 mcg/kg/min is also on vital HP at 30 cc/h. Remains empirically on Zosyn, patient has good urine output, he is scheduled to have lumbar puncture today by anesthesia. Chest x-ray shows endotracheal tube in the proper position, and orogastric tube is also in the proper position, opacity noted in the right upper lobe and right lower lobe related to his recent episode of hemoptysis and right upper lobe malignancy bronchial washings/cultures are still pending Gram stain from the washing is showing mostly few yeast. Blood cultures from the remain negative. WBC count is 8 hemoglobin 7.8 basic metabolic profile is normal and r enal profile is normal Patient evaluated today on 05/25/2023, remains in the ICU, intubated and mech anically ventilated he is on assist-control rate of 22 tidal volume 450 FiO2 35% PEEP of 5 ABG showed a pO2 of 123 pCO2 48 pH of 7.42 hence no changes were made in his ventilator settings. Patient is requiring significant amount of sedation, in spite of being on relatively high-dose of fentanyl at 2 mcg/kg/h and relatively high-dose of propofol at 75 mcg/kg/min, patient is still getting out of bed, restless agitated, and needs close monitoring. Today I added Versed at 5 mg/h, and hopefully we could go down on the propofol and on the fentanyl. Patient received Haldol he also received Seroquel, and it is taking a lot of medication to keep him calm and adequately ventilated. Haldol was added and Seroquel was increased to 50 mg twice daily. Patient underwent lumbar puncture and the results of which are pending. Patient is being followed by neurology. Preliminary finding on the spinal fluid seems to be normal. Patient was placed back on anticoagulation therapy, his WBC count is 7.4 hemoglobin 7.2. Platelets are 2 99,000 Basic metabolic profile is normal renal profile is normal. Evaluated today on 05/26/2023, remains in the ICU, intubated and mechanically ventilated, on assist-control rate of 22 tidal volume 450 FiO2 35% PEEP of 5. ABG showed a pO2 of 116 pCO2 45 pH of 7.46, hence FiO2 was Down to 30%. Patient remains on propofol at 60 mcg/kg/min Fentanyl at 1 mcg/kg/h Versed 3 mg/h and in spite of all of this the patient gets extremely restless agitated easily, and becomes asynchronous with the ventilator. Patient is off norepinephrine at present, presently hemodynamically stable and not requiring pressors. I am having a daily difficulty assessing the patient's mental status as with slight lowering of his sedation, the patient gets extremely agitated and restless. Spinal fluid workup came back negative and nondiagnostic. Chest x-ray showed very minimal questionable right perihilar infiltrate, otherwise unremarkable. Cultures from BAL are negative and nondiagnostic WBC count today 6.5 hemoglobin is 7.4. Platelets are 293 basic metabolic profile is normal and renal profile is normal Objective - Vital Signs Vital signs: Vital Signs Temp 98.3 F 05/26/23 04:00 Pulse 75 05/26/23 11:57 Resp 22 05/26/23 11:00 BP 90/57 05/26/23 10:00 Pulse Ox 100 05/26/23 11:00 FiO2 35 05/26/23 10:53 Intake & Output 05/25/23 05/26/23 05/26/23 18:59 06:59 18:59 Intake Total 9725.352 0708.974 347.092 Output Total 1620 2020 500 Balance -138.537 -451.026 -152.908 Weight 79 kg Intake: IV 276 376 109 .9NS 240 240 .9NS Pressure Bag 9 9 A line 27 36 Piperacillin-Tazobactam 3 100 100 .375 gm In Sodium Chloride 0.9% 100 ml @ 25 mls/hr IVPB Q8HR ROB Rx# :[id number] Intake, IV Titration 752.463 726.974 109.092 Amount Heparin Sod,Pork in 0.45% 103.99 243.882 NaCl 25,000 unit In 0.45 % NaCl 1 250ml.bag @ 12 UNITS/KG/HR 9.564 mls/hr IV .Q24H ROB Rx#: [id number] Midazolam HCl 50 mg In 28.333 Sodium Chloride 0.9% 40 ml @ 1 MG/HR 1 mls/hr IV .Q24H ROB Rx#:[id number] Norepinephrine 8 mg In 69.852 53.368 9.092 Sodium Chloride 0.9% 250 ml @ 0.03 MCG/KG/MIN 4. 435 mls/hr IV .Q24H ROB Rx#:[id number] fentaNYL (PF). 1,000 mcg 198.301 99.893 In Sodium Chloride 0.9% 80 ml @ 0.5 MCG/KG/HR 3. 82 mls/hr IV .Q24H ROB Rx #:[id number] propofoL 1,000 mg In 380.320 301.498 100 Empty Bag 1 bag @ 15 MCG/ KG/MIN 6.876 mls/hr IV . [id number] ROB Rx#:[id number] Oral 99 Tube Feeding 363 396 Blood Product 30 Other 90 70 Output: Urine 1620 2020 500 Other: Voiding Method Indwelling Catheter Indwelling Catheter ABP, PAP, CO, CI - Last Documented Arterial Blood Pressure 112/53 - Exam General: Reveals 63-year-old white male intubated mechanically ventilated, sedat ed. Still requiring multiple meds for controlling his agitation Head: Atraumatic, normocephalic endotracheal tube and orogastric tube are intact Skin: Skin is warm and dry and no rashes or lesions are noted. Eye: Pupils are equal, round and reactive to light, extra-ocular movements are intact; there is normal conjunctiva bilaterally. Ears, nose, mouth and throat: There are moist mucous membranes and no oral lesions. Neck: The neck is supple, there is no tenderness or JVD. Cardiovascular: Regular rhythm, no S3 gallop. No murmur. Respiratory: Good breath sound bilaterally no rhonchi no wheeze Gastrointestinal: Soft, non-distended, non-tender abdomen without masses or organomegaly noted Neurologic: Cannot assess patient is sedated on propofol and fentanyl, and Versed Psychiatric: Could not assess. Skin: Evidence of psoriatic lesions and dry skin - Labs CBC & Chem 7: 05/26/23 04:30 05/26/23 04:30 Labs: Abnormal Lab Results - Last 24 Hours (Table) 05/25/23 05/25/23 05/26/23 Range/Units 18:53 22:48 00:04 RBC (4.30-5.90) m/uL Hgb (13.0-17.5) gm/dL Hct (39.0-53.0) % RDW (11.5-15.5) % Lymphocytes # (1.0-4.8) k/uL APTT (22.0-30.0) sec ABG pH (7.35-7.45) ABG pO2 (83-108) mmHg ABG HCO3 (21-25) mmol/L ABG Total CO2 (19-24) mmol/L ABG O2 Saturation (94-97) % BUN (9-20) mg/dL Creatinine (0.66-1.25) mg/dL Glucose (74-99) mg/dL POC Glucose (mg/dL) 124 H 138 H 131 H (70-110) mg/dL 05/26/23 05/26/23 05/26/23 Range/Units 04:30 04:30 04:30 RBC 2.85 L (4.30-5.90) m/uL Hgb 7.4 L (13.0-17.5) gm/dL Hct 23.3 L (39.0-53.0) % RDW 16.3 H (11.5-15.5) % Lymphocytes # 0.2 L (1.0-4.8) k/uL APTT 32.5 H (22.0-30.0) sec ABG pH (7.35-7.45) ABG pO2 (83-108) mmHg ABG HCO3 (21-25) mmol/L ABG Total CO2 (19-24) mmol/L ABG O2 Saturation (94-97) % BUN 23 H (9-20) mg/dL Creatinine 0.64 L (0.66-1.25) mg/dL Glucose 134 H (74-99) mg/dL POC Glucose (mg/dL) (70-110) mg/dL 05/26/23 05/26/23 05/26/23 Range/Units 05:36 06:26 06:50 RBC (4.30-5.90) m/uL Hgb (13.0-17.5) gm/dL Hct (39.0-53.0) % RDW (11.5-15.5) % Lymphocytes # (1.0-4.8) k/uL APTT (22.0-30.0) sec ABG pH 7.46 H (7.35-7.45) ABG pO2 116 H (83-108) mmHg ABG HCO3 32 H (21-25) mmol/L ABG Total CO2 33 H (19-24) mmol/L ABG O2 Saturation 99.3 H (94-97) % BUN (9-20) mg/dL Creatinine (0.66-1.25) mg/dL Glucose (74-99) mg/dL POC Glucose (mg/dL) 131 H 139 H (70-110) mg/dL 05/26/23 05/26/23 Range/Units 11:28 11:31 RBC (4.30-5.90) m/uL Hgb (13.0-17.5) gm/dL Hct (39.0-53.0) % RDW (11.5-15.5) % Lymphocytes # (1.0-4.8) k/uL APTT 48.7 H (22.0-30.0) sec ABG pH (7.35-7.45) ABG pO2 (83-108) mmHg ABG HCO3 (21-25) mmol/L ABG Total CO2 (19-24) mmol/L ABG O2 Saturation (94-97) % BUN (9-20) mg/dL Creatinine (0.66-1.25) mg/dL Glucose (74-99) mg/dL POC Glucose (mg/dL) 142 H (70-110) mg/dL Microbiology - Last 24 Hours (Table) 05/23/23 11:40 Gram Stain - Preliminary Bronchial Washings - Random Bronchial Washings Culture - Preliminary Yeast 05/22/23 21:19 Gram Stain - Final Sputum Sputum Culture - Final Christal species, not albicans Assessment and Plan Assessment: Impression: Acute hypoxic respiratory failure secondary to metastatic lung cancer and recurrent episodes of hemoptysis, patient was intubated and mechanically ventilated on 05/23/2023 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 Altered mental status as noted above Acute pulmonary emboli, back on heparin. Acute on chronic anemia patient required 1 unit of packed RBCs since admission Chronic atrial fibrillation History of mechanical aortic valve placed in 2019 patient had previous history of bicuspid aortic valve History of coronary artery disease and previous CABG History of LV dysfunction and recurrent episodes of systolic congestive heart failure Benign essential hypertension Dyslipidemia Psoriasis History of traumatic brain injury Status post lumbar puncture on 05/24/2023 Commendation: Continue ventilatory support, unable to wean mostly because of the significant sedation required to keep him calm. Continue hemodynamic support Continue heparin for his previous history of pulmonary embolism Continue sedation patient is not ready for any weaning at this point. Cultures from BAL are negative so far. Continue empiric antibiotics. Chemotherapy as per oncology on the case, patient was started on carboplatin and Alimta Patient is critically ill. I have to consider approaching the again regarding considering comfort care measures or possibly consider trach and PEG in this patient Diagnostic workup on the spinal fluid came back all negative Critical care time is over 30 minutes Time with Patient: Greater than 30
--- NOTE | 2023-05-26 13:52 | P.PN ---
Subjective Progress Note Date: 05/26/23 Patient remains in ICU, ventilated and on sedation. Per nursing, pt still very restless and agitated when trying to move or reposition him. No acute events. S/p bronchoscopy, bronchial washing cytology negative for malignant cells. LP requested to r/o infectious vs leptomeningeal disease. CSF culture negative at 24hrs, cytology pending Objective - Vital Signs Vital signs: Vital Signs Temp 98.3 F 05/26/23 04:00 Pulse 75 05/26/23 11:57 Resp 22 05/26/23 11:00 BP 90/57 05/26/23 10:00 Pulse Ox 100 05/26/23 11:00 FiO2 35 05/26/23 10:53 Intake & Output 05/25/23 05/26/23 05/26/23 18:59 06:59 18:59 Intake Total 7153.947 8297.974 347.092 Output Total 1620 2020 500 Balance -138.537 -451.026 -152.908 Weight 79 kg Intake: IV 276 376 109 .9NS 240 240 .9NS Pressure Bag 9 9 A line 27 36 Piperacillin-Tazobactam 3 100 100 .375 gm In Sodium Chloride 0.9% 100 ml @ 25 mls/hr IVPB Q8HR ROB Rx# :[id number] Intake, IV Titration 752.463 726.974 109.092 Amount Heparin Sod,Pork in 0.45% 103.99 243.882 NaCl 25,000 unit In 0.45 % NaCl 1 250ml.bag @ 12 UNITS/KG/HR 9.564 mls/hr IV .Q24H ROB Rx#: [id number] Midazolam HCl 50 mg In 28.333 Sodium Chloride 0.9% 40 ml @ 1 MG/HR 1 mls/hr IV .Q24H ROB Rx#:[id number] Norepinephrine 8 mg In 69.852 53.368 9.092 Sodium Chloride 0.9% 250 ml @ 0.03 MCG/KG/MIN 4. 435 mls/hr IV .Q24H ROB Rx#:[id number] fentaNYL (PF). 1,000 mcg 198.301 99.893 In Sodium Chloride 0.9% 80 ml @ 0.5 MCG/KG/HR 3. 82 mls/hr IV .Q24H ROB Rx #:[id number] propofoL 1,000 mg In 380.320 301.498 100 Empty Bag 1 bag @ 15 MCG/ KG/MIN 6.876 mls/hr IV . [id number] ROB Rx#:[id number] Oral 99 Tube Feeding 363 396 Blood Product 30 Other 90 70 Output: Urine 1620 2020 500 Other: Voiding Method Indwelling Catheter Indwelling Catheter ABP, PAP, CO, CI - Last Documented Arterial Blood Pressure 112/53 - Constitutional General appearance: Present: no acute distress - Respiratory Details: ventilated breath sounds - Cardiovascular Details: skin warm and dry - Integumentary Integumentary: Absent: cyanotic - Neurologic Neurologic Comment(s): sedated - Labs CBC & Chem 7: 05/26/23 04:30 05/26/23 04:30 Labs: Abnormal Lab Results - Last 24 Hours (Table) 05/25/23 05/25/23 05/26/23 Range/Units 18:53 22:48 00:04 RBC (4.30-5.90) m/uL Hgb (13.0-17.5) gm/dL Hct (39.0-53.0) % RDW (11.5-15.5) % Lymphocytes # (1.0-4.8) k/uL APTT (22.0-30.0) sec ABG pH (7.35-7.45) ABG pO2 (83-108) mmHg ABG HCO3 (21-25) mmol/L ABG Total CO2 (19-24) mmol/L ABG O2 Saturation (94-97) % BUN (9-20) mg/dL Creatinine (0.66-1.25) mg/dL Glucose (74-99) mg/dL POC Glucose (mg/dL) 124 H 138 H 131 H (70-110) mg/dL 05/26/23 05/26/23 05/26/23 Range/Units 04:30 04:30 04:30 RBC 2.85 L (4.30-5.90) m/uL Hgb 7.4 L (13.0-17.5) gm/dL Hct 23.3 L (39.0-53.0) % RDW 16.3 H (11.5-15.5) % Lymphocytes # 0.2 L (1.0-4.8) k/uL APTT 32.5 H (22.0-30.0) sec ABG pH (7.35-7.45) ABG pO2 (83-108) mmHg ABG HCO3 (21-25) mmol/L ABG Total CO2 (19-24) mmol/L ABG O2 Saturation (94-97) % BUN 23 H (9-20) mg/dL Creatinine 0.64 L (0.66-1.25) mg/dL Glucose 134 H (74-99) mg/dL POC Glucose (mg/dL) (70-110) mg/dL 05/26/23 05/26/23 05/26/23 Range/Units 05:36 06:26 06:50 RBC (4.30-5.90) m/uL Hgb (13.0-17.5) gm/dL Hct (39.0-53.0) % RDW (11.5-15.5) % Lymphocytes # (1.0-4.8) k/uL APTT (22.0-30.0) sec ABG pH 7.46 H (7.35-7.45) ABG pO2 116 H (83-108) mmHg ABG HCO3 32 H (21-25) mmol/L ABG Total CO2 33 H (19-24) mmol/L ABG O2 Saturation 99.3 H (94-97) % BUN (9-20) mg/dL Creatinine (0.66-1.25) mg/dL Glucose (74-99) mg/dL POC Glucose (mg/dL) 131 H 139 H (70-110) mg/dL 05/26/23 05/26/23 Range/Units 11:28 11:31 RBC (4.30-5.90) m/uL Hgb (13.0-17.5) gm/dL Hct (39.0-53.0) % RDW (11.5-15.5) % Lymphocytes # (1.0-4.8) k/uL APTT 48.7 H (22.0-30.0) sec ABG pH (7.35-7.45) ABG pO2 (83-108) mmHg ABG HCO3 (21-25) mmol/L ABG Total CO2 (19-24) mmol/L ABG O2 Saturation (94-97) % BUN (9-20) mg/dL Creatinine (0.66-1.25) mg/dL Glucose (74-99) mg/dL POC Glucose (mg/dL) 142 H (70-110) mg/dL Microbiology - Last 24 Hours (Table) 05/23/23 11:40 Gram Stain - Preliminary Bronchial Washings - Random Bronchial Washings Culture - Preliminary Yeast 05/22/23 21:19 Gram Stain - Final Sputum Sputum Culture - Final Christla species, not albicans Assessment and Plan (1) Hemoptysis Current Visit: Yes Status: Acute Priority: High Code(s): R04.2 - HEMOPTYSIS SNOMED Code(s): 36912866 (2) Metastatic non-small cell lung cancer Current Visit: Yes Status: Acute Priority: High Code(s): C34.90 - MALIGNANT NEOPLASM OF UNSP PART OF UNSP BRONCHUS OR LUNG SNOMED Code(s): 133383122 (3) Pulmonary embolism Current Visit: Yes Status: Acute Priority: High Code(s): I26.99 - OTHER PULMONARY EMBOLISM WITHOUT ACUTE COR PULMONALE SNOMED Code(s): 34737192 Plan: PE -New Rt lung PE, BLE doppler for baseline-neg for DVT -[place] to be provoked 2/2 malignancy, recent multiple hospitalizations and holding of coumadin last week because of hemoptysis. -Duration of anticoagulation for a provoked PE is irrelevant. The patient has an artificial heart valve and he needs to be on full dose anticoagulation indefinitely. -Continues on heparin drip Artificial heart valve -Patient previously on Coumadin. INR regulation is challenging due to changes in oral intake, malignancy in the GI tract. -Coumadin reversed. Heparin drip started. -Pending Cardiology recommendations for alternative anticoagulation to coumadin for artificial heart valve (lovenox?) AMS -Repeat MRI brain-mood and behavioral changes-showing several lesions and vasogenic edema. Dexamethasone IV ordered. PPI BID. -Pt continuing to have abnormal behaviors overnight. He then began experiencing significant difficulty in breathing and hemoptysis, he was taken to the intensive care unit and intubated. -Pt behavior symptoms did not improve with steroids, as would be expected if changes were because of brain mets and vasogenic edema. Concern if steroids are contributing so, reduced frequency, but there was no significant change. Xanax changed to IV ativan. IM adjusted freq of pain meds. Unfortunately, no improvements, and patient was transferred to ICU, where he remains intubated and requiring sedation -S/p LP to r/o infectious vs leptomeningeal metastasis. CSF culture negative at 24hrs, cytology pending Hemoptysis -recurrent, now resolved -bronchoscopy performed, reported old blood in the mucosal of the airways, right upper lobe evidence of a large tumor, apical segment totally occluded with the tumor. Bronchial washing cytology negative for malignant cells -Pending Cardiology recs if lovenox can be used Non-small cell adenocarcinoma, non-squamous, metastatic disease, rapid progression -Pt 1st presented on 04/18 and has since been inpt 2 additional times in the last 3 weeks. He was unable to stay out of the hospital long enough to start treatment. -MRI brain is showing 1.4 cm ring enhancing lesion-3 weeks after prior MRI showing of a 9 mm lesion with no ring enhancement. CT chest is reports significant progression of disease in just 3 weeks. -1st cycle of carbo/alimta completed on 05/20/23 -Will likely benefit from XRT to lung mass prior to proceeding to cycle 2. Will speak with rad onc regarding case once pt more stable -Cont use of supportive medications as needed based on reported symptoms -Labs ordered daily -Prognosis guarded, will await CSF cytology and monitor for any improvement in condition over the next couple days.
[2023-05-26 19:57] LABS: Glucose,Whole Blood 138 mg/dL (70-110)
[2023-05-27 04:46] LABS: Glucose,Whole Blood 130 mg/dL (70-110)
[2023-05-27 06:10] LABS: ABG Base Excess 5.9 mmol/L; ABG HCO3 30 mmol/L (21-25); ABG Oxygen Saturation 98.8 % (94-97); ABG PCO2 41 mmHg (35-45); ABG PH 7.47 (7.35-7.45); ABG PO2 106 mmHg (83-108); ABG TCO2 31 mmol/L (19-24); Allen Test Performed? Yes
[2023-05-27 06:10] LABS: ALT 20 U/L (4-49); AST 22 U/L (17-59); African American GFR (CKD) >90 (>60 ml/min/1.73 sqM); Alkaline Phosphatase 58 U/L (38-126); Anion Gap 4 mmol/L; Blood Urea Nitrogen 25 mg/dL (9-20); Carbon Dioxide 27 mmol/L (22-30); Chloride 104 mmol/L (98-107); Glucose 114 mg/dL (74-99); Non-African American GFR(CKD) >90 (>60 ml/min/1.73 sqM); Potassium 5.2 mmol/L (3.5-5.1); Sodium 135 mmol/L (137-145); Total Bilirubin 0.5 mg/dL (0.2-1.3); Total Protein 5.6 g/dL (6.3-8.2)
[2023-05-27] MEDS: MAGNESIUM HYDROXIDE 2,400 MG/30 ML CUP PO PRN (06:47)
--- NOTE | 2023-05-27 07:36 | XR ---
EXAMINATION TYPE: XR chest 1V portable DATE OF EXAM: 05/27/2023 4:29 AM COMPARISON: Chest radiographs from 05/26/2023 TECHNIQUE: XR chest 1V portable Portable AP radiograph of the chest. CLINICAL INDICATION:Male, 63 years old with history of assess et tube, lungs; FINDINGS: Lungs/Pleura: No pleural effusion or pneumothorax. Similar right upper paramediastinal airspace opaci ties and mass. Pulmonary vascularity: Unremarkable. Heart/mediastinum: Cardiomediastinal silhouette is unremarkable. Musculoskeletal: No acute osseous pathology. Midline sternotomy wires are noted and stable. Other findings: None Lines/Tubes: Stable position of NG tube and endotracheal tube. Stable left PICC line. IMPRESSION: 1. Stable support lines and tubes. 2. Similar right upper paramediastinal airspace opacities and mass.
[2023-05-27 07:49] LABS: Anisocytosis Slight; Basophils % (A) 0 %; Eosinophils % (A) 1 %; HCT 22.8 % (39.0-53.0); HGB 7.1 gm/dL (13.0-17.5); Hypochromasia Marked; Lymphocytes # (A) 0.2 k/uL (1.0-4.8); Lymphocytes % (A) 8 %; MCH 25.6 pg (25.0-35.0); MCHC 31.1 g/dL (31.0-37.0); MCV 82.3 fL (80.0-100.0); Mean Platelet Volume 9.3; Monocytes # (A) 0.1 k/uL (0-1.0); Monocytes % (A) 2 %; Neutrophils # (A) 2.6 k/uL (1.3-7.7); Neutrophils % (A) 89 %; Platelet Count 244 k/uL (150-450); Poikilocytosis Slight; RBC 2.77 m/uL (4.30-5.90); WBC 2.9 k/uL (3.8-10.6)
--- NOTE | 2023-05-27 11:31 | P.PN ---
Subjective Progress Note Date: 05/27/23 63 year-old male who comes in with complaints of hemoptysis. Patient had chest CT showing progression of meta static lymph nodes in the neck chest and upper abdomen. There is also concern for bronchial invasion and with a right upper lobe infiltrate. He was admitted to the hospital with a consult placed to hematology with plans to undergo induction chemotherapy and radiation. Patient will have brain MRI completed today. He also reports not having a bowel movement. Blood work today shows white count 8.21, hemoglobin 7.8, sodium 134, BUN 7.1, creatinine 0.8. 05/21/2023 Patient is monitored to the medical floor he is being followed closely by oncology with plans for induction chemotherapy today. Not yet had a bowel movement but had not received MiraLAX we will try that first before giving an enema or stronger laxative. Abdomen is softer today and he does have positive normoactive bowel sounds throughout. Patient had a PICC line inserted today. Brain MRI shows a 1.4 cm ring-enhancing lesion with some mild vasogenic edema adjacent to the right frontal lobe findings are concerning for metastatic lesion he has been started on IV dexamethasone by oncology. Recommendations were made to hold warfarin at this time and INR was reversed patient was given the 5 mg dose of vitamin K. His INR today is 1.1 and he has been initiated on an IV heparin drip at this time. 05/22/2023 Patient is evaluated today resting in bed he is currently in 2-point restraints his is sitting at the bedside. Patient did receive his first dose of IV chemotherapy yesterday he is also on Decadron for the vasogenic edema. He was significantly agitated last night he did get out of bed fell in the hallway he was restrained and did require sedation to calm down. We would currently recommend to stop the Xanax decrease the frequency of the oxycodone and avoid Dilaudid if possible. Patient will be given Seroquel at at bedtime and also daily as needed for acute agitation. Patient continues on a course of IV ceftriaxone. He is also on IV heparin with warfarin being held. Status post chemo his labs today are showing a hemoglobin of 7.4, platelet count of 298, white count of 8.41. His electrolytes are within normal limits. 05/23. Patient seen and examined. Patient currently intubated and sedated. Labs at this morning showed WBC 10.9, hemoglobin 7.9, platelet count 297 05/24. Patient seen and examined. Continues to be intubated. Lab work done showed WBC 8, hemoglobin 7.8, platelet count 283, sodium 1:30, potassium 5.1, magnesium 2.3, total bilirubin 0.5, 05/25. Patient seen and examined. Continues to be intubated. Patient had lumbar puncture done. Lab work done that showed WBC 1.4, hemoglobin 7.2, platelet count 299, sodium 138, potassium 4.6, BUN 18, creatinine 0.64 05/26. Patient seen and examined. Lab work done this morning showed WBC 6.5, hemoglobin 7.4, platelet count 293, sodium 138, potassium 5, BUN 23, creatinine 0.64. Currently on Versed, fentanyl and propofol. CSF fluid analysis reviewed, cytology pending. 05/27/23: Dr Martinez Assumed care: Patient seen and evaluated at bedside, patient remains intubated, sedated, patient sedated with propofol, continue to remain on norepinephrine, medical ICU team following, patient remains on broad-spectrum antibiotics including Zosyn,. Patient is on IV heparin due to history of atrial fibrillation continue metoprolol and amiodarone. Prognosis continues to remain guarded secondary to remain guarded secondary to multiple comorbidities potassium noted to be 5.2 we will follow-up. Lokelma given through OG tube PHYSICAL EXAMINATION: GENERAL: The patient is intubated and sedated, ill appearance, pale appearance HEENT: Pupils are round and equally reacting to light. CARDIOVASCULAR: S1 and S2 present. Irregular rhythm rate controlled PULMONARY: Decreased breath sounds bilaterally, symmetrical, rhonchi audible ABDOMEN: Soft, nontender, nondistended, normoactive bowel sounds. No palpable organomegaly. MUSCULOSKELETAL: No joint swelling or deformity. EXTREMITIES: No cyanosis, clubbing, or pedal edema. NEUROLOGICAL: Intubated and sedated Objective - Vital Signs Vital signs: Vital Signs Temp 98.7 F 05/27/23 08:00 Pulse 85 05/27/23 11:17 Resp 23 05/27/23 10:00 BP 96/70 05/27/23 10:00 Pulse Ox 99 05/27/23 10:00 FiO2 35 05/27/23 11:17 Intake & Output 01/28/24 01/29/24 01/29/24 18:59 06:59 18:59 Intake Total 6188.891 4865.015 498.787 Output Total 2049 2500 550 Balance -676.096 -1249.985 -51.213 Weight 79 kg 79 kg Intake: IV 293 286 222 .9NS 160 230 110 .9NS Pressure Bag 33 36 12 Piperacillin-Tazobactam 3 100 20 100 .375 gm In Sodium Chloride 0.9% 100 ml @ 25 mls/hr IVPB Q8HR ROB Rx# :[id number] Intake, IV Titration 627.904 634.015 114.787 Amount Heparin Sod,Pork in 0.45% 44.997 NaCl 25,000 unit In 0.45 % NaCl 1 250ml.bag @ 12 UNITS/KG/HR 9.036 mls/hr IV .Q24H ROB Rx#: [id number] Heparin Sod,Pork in 0.45% 189.128 228.739 19.362 NaCl 25,000 unit In 0.45 % NaCl 1 250ml.bag @ 12 UNITS/KG/HR 9.564 mls/hr IV .Q24H ROB Rx#: [id number] Midazolam HCl 50 mg In 39.15 25.517 Sodium Chloride 0.9% 40 ml @ 1 MG/HR 1 mls/hr IV .Q24H ROB Rx#:[id number] Norepinephrine 8 mg In 9.092 62.709 6.037 Sodium Chloride 0.9% 250 ml @ 0.03 MCG/KG/MIN 4. 435 mls/hr IV .Q24H ROB Rx#:[id number] Piperacillin-Tazobactam 3 100 .375 gm In Sodium Chloride 0.9% 100 ml @ 25 mls/hr IVPB Q8HR ROB Rx# :[id number] fentaNYL (PF). 1,000 mcg 90.534 In Sodium Chloride 0.9% 80 ml @ 0.5 MCG/KG/HR 3. 82 mls/hr IV .Q24H ROB Rx #:[id number] propofoL 1,000 mg In 300.000 172.053 89.388 Empty Bag 1 bag @ 15 MCG/ KG/MIN 6.876 mls/hr IV . [id number] ROB Rx#:[id number] Oral 297 Tube Feeding 66 330 132 Blood Product 90 Other 30 Output: Urine 2050 2500 550 Other: Voiding Method Indwelling Catheter Indwelling Catheter Indwelling Catheter ABP, PAP, CO, CI - Last Documented Arterial Blood Pressure 109/49 - Labs CBC & Chem 7: 05/27/23 04:30 05/27/23 04:30 Labs: Abnormal Lab Results - Last 24 Hours (Table) 05/26/23 05/26/23 05/26/23 Range/Units 11:28 11:31 19:54 WBC (3.8-10.6) k/uL RBC (4.30-5.90) m/uL Hgb (13.0-17.5) gm/dL Hct (39.0-53.0) % RDW (11.5-15.5) % Lymphocytes # (1.0-4.8) k/uL APTT 48.7 H (22.0-30.0) sec ABG pH (7.35-7.45) ABG HCO3 (21-25) mmol/L ABG Total CO2 (19-24) mmol/L ABG O2 Saturation (94-97) % Sodium (137-145) mmol/L Potassium (3.5-5.1) mmol/L BUN (9-20) mg/dL Glucose (74-99) mg/dL POC Glucose (mg/dL) 142 H 138 H (70-110) mg/dL Total Protein (6.3-8.2) g/dL Albumin (3.5-5.0) g/dL 05/27/23 05/27/23 05/27/23 Range/Units 04:30 04:30 04:30 WBC 2.9 L (3.8-10.6) k/uL RBC 2.77 L (4.30-5.90) m/uL Hgb 7.1 L (13.0-17.5) gm/dL Hct 22.8 L (39.0-53.0) % RDW 16.0 H (11.5-15.5) % Lymphocytes # 0.2 L (1.0-4.8) k/uL APTT 43.4 H (22.0-30.0) sec ABG pH (7.35-7.45) ABG HCO3 (21-25) mmol/L ABG Total CO2 (19-24) mmol/L ABG O2 Saturation (94-97) % Sodium 135 L (137-145) mmol/L Potassium 5.2 H (3.5-5.1) mmol/L BUN 25 H (9-20) mg/dL Glucose 114 H (74-99) mg/dL POC Glucose (mg/dL) (70-110) mg/dL Total Protein 5.6 L (6.3-8.2) g/dL Albumin 3.0 L (3.5-5.0) g/dL 05/27/23 05/27/23 Range/Units 04:34 06:06 WBC (3.8-10.6) k/uL RBC (4.30-5.90) m/uL Hgb (13.0-17.5) gm/dL Hct (39.0-53.0) % RDW (11.5-15.5) % Lymphocytes # (1.0-4.8) k/uL APTT (22.0-30.0) sec ABG pH 7.47 H (7.35-7.45) ABG HCO3 30 H (21-25) mmol/L ABG Total CO2 31 H (19-24) mmol/L ABG O2 Saturation 98.8 H (94-97) % Sodium (137-145) mmol/L Potassium (3.5-5.1) mmol/L BUN (9-20) mg/dL Glucose (74-99) mg/dL POC Glucose (mg/dL) 130 H (70-110) mg/dL Total Protein (6.3-8.2) g/dL Albumin (3.5-5.0) g/dL Microbiology - Last 24 Hours (Table) 05/24/23 14:45 CSF Gram Stain - Preliminary Cerebral Spinal Fluid CSF Culture - Preliminary Assessment and Plan Assessment: Assessment and plan * Acute hypoxic respiratory failure secondary to metastatic lung cancer, recurrent hemoptysis s/p intubation and mechanical ventilation day 5 * Acute metabolic encephalopathy * Acute pulmonary embolism * 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 Continue patient on sedation while on mechanical ventilation * In regards to pulmonary embolism, CT chest done on 05/19/2023 shows right lower lobe pulmonary emboli, metastatic disease had worsened, significant lymphadenopathy noted. Continue patient on IV heparin * In regards to history of atrial fibrillation, continue rate control with metoprolol, blood pressure support with Levophed anticoagulation with IV heparin * In regards to metabolic encephalopathy, patient is s/p lumbar puncture 05/24/2023, awaiting cytology, * Continue current hemodynamic support in ICU. * Prognosis remains poor secondary to multiple comorbidities and progressive deterioration in the last few weeks Time with Patient: Greater than 30
[2023-05-27 11:32] VITALS: BMI 27.2
--- NOTE | 2023-05-27 12:32 | P.PN ---
Subjective Progress Note Date: 05/27/23 Principal diagnosis: Respiratory failure. 63-year-old male patient with metastatic pulmonary adenocarcinoma and the patient has a bulky tumor in his chest with extensive adenopathy involving the right hilum and the right paratracheal and subcarinal area the largest portions measuring 8 x 86.3 cm in size in the hilar area and 5.6 x 3.5 cm inside the subcarinal and infrahilar area. There is also lymphadenopathy involving the left hilum other smaller lymph nodes within the mediastinum and the patient has small pleural effusion right more than left along with compressive atelectatic changes and pleural-based nodules in the right and extensive groundglass changes in the left upper lobe with numerous nodular densities up to 16 x 13 mm in size. Smaller nodules also seen in the left lung in addition. In summary, the patient disease is metastatic as the patient also has extensive heterogeneous liver concerning for diffuse metastases and a stain is also enlarged and the p atient has multiple soft tissue masses/lymphadenopathy in the upper abdomen. During his last admission the patient was also found to have a left occipital Enhancing lesion suspicious for [employer] metastases. The patient was admitted to the hospital on 05/12/2023 for shortness of breath and hemoptysis. His hemoptysis was attributed to his metastatic lung cancer and the patient was taken anticoagulation with warfarin and his INR was supratherapeutic. At that time, his INR was reversed, however, the patient in the going back on warfarin as the patient is a mechanical aortic valve and there is no reasonable alternatives to that and were targeting a titer INR control between 2 and 2.5. He was supposed to follow-up with oncology on outpatient basis. In addition oncology saw him during his hospital stay and thought that the brain lesion was small and there was no need for radiation this point in time. Following his discharge, the patient encounter ongoing hemoptysis which never stopped since his discharge. He came into the hospital for further advice. Total amount of blood was probably in the form of 10 mL overnight mixed with mucus. No blood clots. No worsening shortness of breath. His chronically dyspneic and is also having hypoxic respiratory failure maintained on oxygen. He has atrial fibrillation, coronary artery disease, and previous aortic valve replacement with a mechanical valve. I did see the patient during his last hospital stay and the patient was thought to be clinically stable for discharge to be followed up by oncology. Final decision on treatment for his lung cancer has not been made as the patient is awaiting PDL 1 and NGS analysis prior to quitting for any further treatment. He was supposed to be seen by medical oncology early next week. For now, the patient's echoes at 8.5, hemoglobin is 8.2 which is stable since his discharge. INR is at 2.7 with a PT of 27. BUN is a 50 with a creatinine of 1.01 and sodium level is 128. His oxygenation is stable at 3 L with a pulse ox of 99%. Computed tomography scan of the chest was again ordered The patient is seen today 05/20/2023 in follow-up on the regular medical floor. He is awake and alert in no acute distress. He denies any further hemoptysis. He has some right-sided chest discomfort on inhalation. Computed tomography scan of the chest from last evening shows overall significant progression of metastatic disease with extensive soft tissue metastasis/nodes in the neck and chest showing appreciable increase in size. There is worsening, lumbar mediastinal and hilar soft tissue masses/adenopathy resultant slightly worsened narrowing of branches of the right pulmonary artery and bronchi in the right hilum. New pulmonary emboli in the right lower lobe artery, segmental and sent segmental branches. Interval worsening of opacity in the right upper lobe, concerning for spread of tumor with possible superimposed pneumonitis. This obscures some the lung nodules evident before. There are also enlarging nodules in the superior segment of the right lower lobe. Small bilateral pleural effusions. Improved groundglass opacities and multiple nodules in the left lung, with residual nodularity. Worsening extensive upper abdominal metastatic disease, with significant enlargement of metastasis/nodes as above. Doppler of the lower extremity was negative for DVT. MRI of the brain reveals a 1.4 cm ring enhancing lesion with some mild vasogenic edema adjacent right frontal lobe. Suspicious for metastatic lesion. White count 8.2. Hemoglobin 7.8. INR 3.6. Sodium 134. Potassium 4.3. Bicarb 23. BUN 7. Creatinine 0.8. Glucose 99. He remains on DuoNeb inhalations, Symbicort antibiotics in the form of ceftriaxone. He is continued on Decadron 4 mg IVP every 6 hours. The patient is seen today May 21, 2023 and follow-up on the regular medical floor. He is sitting up in a chair at the bedside. Awake and alert in no acute distress. Denies any worsening shortness of breath, cough or congestion. No hemoptysis. He remains on DuoNeb ventilations, Symbicort, Decadron. Antibiotics in the form of ceftriaxone. INR 1.1. The plan is for PICC line placement and to be initiated on carboplatin today. He remains on a heparin drip. The patient is seen today May 22, 2023 in follow-up on the regular medical floor. He is currently resting in bed. He did have some issues with agitation and combativeness requiring Haldol and soft restraints. chlorinator is at the bedside. He is maintaining good O2 saturation in the mid 90s on room air. He has been afebrile. Hemodynamically stable. His hemoglobin is 6.4 and he is receiving 1 unit of packed red blood cells. Platelets 298. White count 8.4. INR 1.2. Sodium 139. Potassium 4.3. Bicarb 21. BUN 12. Creatinine 0.7. Glucose 124. He remains on a heparin drip. Remains on antibiotics in the form of ceftriaxone. Decadron 4 mg IVP every 8 hours. Continued on DuoNeb ventilations, Symbicort. Normal saline at 75 MLS per hour. He did receive carboplatin and Alimta yesterday. Patient was reevaluated today on May 23/2024, patient decompensated this morning, he became extremely short of breath, patient was also becoming more and more combative, he was having more and more episodes of hemoptysis, and I recommended transferring the patient to the ICU. Patient was placed on multiple medications to calm him down, however he continued to deteriorate and he was developing more and more shortness of breath and more desaturations. Hence I was notified about the patient and I recommended immediate intubation. Patient was already transferred to the ICU at the time. Present patient is intubated and mechanically ventilated, he is on assist-control rate of 18 tidal volume 400 FiO2 35% and PEEP of 5 ABG showed a pO2 of more than 400 on 100% pCO2 44 pH of 7.31. Patient is on propofol 70 mcg/kg/min norepinephrine 0.04 mcg/kg/min Fentanyl at 1 mcg/kg/h he is also 1.9 normal saline at [facility], receiving ceftriaxone and receiving Decadron. Went ahead and performed bronchoscopy on patient, there was no active bleeding noted, there is definitely a large tumor involving the apical segment of the right upper lobe, but no active bleeding in the right upper lobe was noted. Established a radial arterial line for hemodynamic monitoring, discussed his condition with the , and made aware of the severity of his illness, she seems to be reasonable, and she clearly stated to me that if his condition gets any worse and hopeless, she will definitely consider comfort care measures at that point. WBC count today is 10.9 hemoglobin 7.9. Follow-up ABG this morning showed a pO2 of 205 pCO2 34 pH of 7.47, this was on 50% FiO2 basic metabolic profile is normal renal profile is normal chest x-ray showed mild midlung infiltrate right side, possible atelectasis Patient with presented today on 05/24/2023, patient remains in the ICU, intubated and mechanically ventilated, he is on assist-control rate of 18 tidal volume 400 FiO2 35% PEEP of 5 ABG showed a pO2 of 106 pCO2 64 pH of 7.29, hence his rate was increased up to 22, and tidal volume increased to 450. Patient was on Ni mbex last night, and this was discontinued this morning, he is on norepinephrine at 0.03 mcg/kg/min Fentanyl 2 mcg/kg/h propofol 70 mcg/kg/min is also on vital HP at 30 cc/h. Remains empirically on Zosyn, patient has good urine output, he is scheduled to have lumbar puncture today by anesthesia. Chest x-ray shows endotracheal tube in the proper position, and orogastric tube is also in the proper position, opacity noted in the right upper lobe and right lower lobe related to his recent episode of hemoptysis and right upper lobe malignancy bronchial washings/cultures are still pending Gram stain from the washing is showing mostly few yeast. Blood cultures from the remain negative. WBC count is 8 hemoglobin 7.8 basic metabolic profile is normal and renal profile is normal Patient evaluated today on 05/25/2023, remains in the ICU, intubated and mechanically ventilated he is on assist-control rate of 22 tidal volume 450 FiO2 35% PEEP of 5 ABG showed a pO2 of 123 pCO2 48 pH of 7.42 hence no changes were made in his ventilator settings. Patient is requiring significant amount of s edation, in spite of being on relatively high-dose of fentanyl at 2 mcg/kg/h and relatively high-dose of propofol at 75 mcg/kg/min, patient is still getting out of bed, restless agitated, and needs close monitoring. Today I added Versed at 5 mg/h, and hopefully we could go down on the propofol and on the fentanyl. Patient received Haldol he also received Seroquel, and it is taking a lot of medication to keep him calm and adequately ventilated. Haldol was added and Seroquel was increased to 50 mg twice daily. Patient underwent lumbar puncture and the results of which are pending. Patient is being followed by neurology. Preliminary finding on the spinal fluid seems to be normal. Patient was placed back on anticoagulation therapy, his WBC count is 7.4 hemoglobin 7.2. Platelets are 2 99,000 Basic metabolic profile is normal renal profile is normal. Evaluated today on 05/26/2023, remains in the ICU, intubated and mechanically ventilated, on assist-control rate of 22 tidal volume 450 FiO2 35% PEEP of 5. ABG showed a pO2 of 116 pCO2 45 pH of 7.46, hence FiO2 was Down to 30%. Patient remains on propofol at 60 mcg/kg/min Fentanyl at 1 mcg/kg/h Versed 3 mg/h and in spite of all of this the patient gets extremely restless agitated easily, and becomes asynchronous with the ventilator. Patient is off norepinephrine at present, presently hemodynamically stable and not requiring pressors. I am having a daily difficulty assessing the patient's mental status as with slight lowering of his sedation, the patient gets extremely agitated and restless. Spinal fluid workup came back negative and nondiagnostic. Chest x-ray showed very minimal questionable right perihilar infiltrate, otherwise unremarkable. Cultures from BAL are negative and nondiagnostic WBC count today 6.5 hemoglobin is 7.4. Platelets are 293 basic metabolic profile is normal and renal profile is normal Progress note dated May 27, 2023. This is a 63-year-old male who was seen in the intensive care unit, room 264. The patient was admitted to the hospital on May 19. The patient has a history of metastatic lung cancer, with brain metastasis, and skeletal metastasis. He was also diagnosed with a pulmonary embolism. The patient was intubated for respiratory failure and hemoptysis on May 22. He remains on mechanical ventilator, with settings of volume assist-control, rate 22, tidal volume 450, FiO2 35%, and PEEP of 5. Blood gases show pO2 of 106, pCO2 of 41, and a pH of 7.47. This blood gas is consistent with a mild metabolic alkalosis. The patient is on saline at 30 cc an hour, propofol at 60 mcg/kg/min, Versed at 2 mg an hour, fentanyl at 1 mcg/kg/h, heparin via weight-based protocol, and on and off of norepinephrine, for blood pressure support. The patient is receiving vital high-protein at 33 cc an hour which is goal. White count is 2.9, hemoglobin 7.1, hematocrit 22.8, and platelet count 244,000. PTT is 43.4. Sodium 135, potassium 5.2, chlorides 104, CO2 27, BUN 25, and creatinine 0.73. Albumin is 3. Glucose is 130. Microbiologic sampling is thus far negative. There is some Christal in the sputum. Chest x-ray shows a right sided lung mass/infiltrate. Objective - Vital Signs Vital signs: Vital Signs Temp 98.7 F 05/27/23 08:00 Pulse 85 05/27/23 11:33 Resp 23 05/27/23 10:00 BP 96/70 05/27/23 10:00 Pulse Ox 99 05/27/23 10:00 FiO2 35 05/27/23 11:17 Intake & Output 05/26/23 05/27/23 05/27/23 18:59 06:59 18:59 Intake Total 9691.916 9173.015 498.787 Output Total 2050 2500 550 Balance -676.096 -1249.985 -51.213 Weight 79 kg 79 kg Intake: IV 293 286 222 .9NS 160 230 110 .9NS Pressure Bag 33 36 12 Piperacillin-Tazobactam 3 100 20 100 .375 gm In Sodium Chloride 0.9% 100 ml @ 25 mls/hr IVPB Q8HR ROB Rx# :[id number] Intake, IV Titration 627.904 634.015 114.787 Amount Heparin Sod,Pork in 0.45% 44.997 NaCl 25,000 unit In 0.45 % NaCl 1 250ml.bag @ 12 UNITS/KG/HR 9.036 mls/hr IV .Q24H ROB Rx#: [id number] Heparin Sod,Pork in 0.45% 189.128 228.739 19.362 NaCl 25,000 unit In 0.45 % NaCl 1 250ml.bag @ 12 UNITS/KG/HR 9.564 mls/hr IV .Q24H ROB Rx#: [id number] Midazolam HCl 50 mg In 39.15 25.517 Sodium Chloride 0.9% 40 ml @ 1 MG/HR 1 mls/hr IV .Q24H ROB Rx#:[id number] Norepinephrine 8 mg In 9.092 62.709 6.037 Sodium Chloride 0.9% 250 ml @ 0.03 MCG/KG/MIN 4. 435 mls/hr IV .Q24H ROB Rx#:[id number] Piperacillin-Tazobactam 3 100 .375 gm In Sodium Chloride 0.9% 100 ml @ 25 mls/hr IVPB Q8HR ROB Rx# :[id number] fentaNYL (PF). 1,000 mcg 90.534 In Sodium Chloride 0.9% 80 ml @ 0.5 MCG/KG/HR 3. 82 mls/hr IV .Q24H ROB Rx #:[id number] propofoL 1,000 mg In 300.000 172.053 89.388 Empty Bag 1 bag @ 15 MCG/ KG/MIN 6.876 mls/hr IV . [id number] ROB Rx#:[id number] Oral 297 Tube Feeding 66 330 132 Blood Product 90 Other 30 Output: Urine 2050 2500 550 Other: Voiding Method Indwelling Catheter Indwelling Catheter Indwelling Catheter ABP, PAP, CO, CI - Last Documented Arterial Blood Pressure 109/49 - Exam No acute distress, the patient is sedated, with an orally placed endotracheal tube, and NG tube. HEENT examination is grossly unremarkable. Neck supple. Full range of motion. No adenopathy thyromegaly or neck vein distention. Cardiovascular examination reveals regular rhythm rate. S1-S2 normal. No S3 or S4. No discernible murmur noted. Heart sounds are distant. Heart rate 85 bpm. Lungs reveal mild scattered rhonchi. No wheezes or crackles. Breath sounds are equal bilaterally. Saturations are 99%. Abdomen soft, with bowel sounds. No masses. Extremities are intact. No cyanosis clubbing or edema. Skin is without rash or lesion. Neurologic examination cannot be adequately assessed at this time. - Labs CBC & Chem 7: 05/27/23 04:30 05/27/23 04:30 Labs: Abnormal Lab Results - Last 24 Hours (Table) 05/26/23 05/27/23 05/27/23 Range/Units 19:54 04:30 04:30 WBC (3.8-10.6) k/uL RBC (4.30-5.90) m/uL Hgb (13.0-17.5) gm/dL Hct (39.0-53.0) % RDW (11.5-15.5) % Lymphocytes # (1.0-4.8) k/uL APTT 43.4 H (22.0-30.0) sec ABG pH (7.35-7.45) ABG HCO3 (21-25) mmol/L ABG Total CO2 (19-24) mmol/L ABG O2 Saturation (94-97) % Sodium 135 L (137-145) mmol/L Potassium 5.2 H (3.5-5.1) mmol/L BUN 25 H (9-20) mg/dL Glucose 114 H (74-99) mg/dL POC Glucose (mg/dL) 138 H (70-110) mg/dL Total Protein 5.6 L (6.3-8.2) g/dL Albumin 3.0 L (3.5-5.0) g/dL 05/27/23 05/27/23 05/27/23 Range/Units 04:30 04:34 06:06 WBC 2.9 L (3.8-10.6) k/uL RBC 2.77 L (4.30-5.90) m/uL Hgb 7.1 L (13.0-17.5) gm/dL Hct 22.8 L (39.0-53.0) % RDW 16.0 H (11.5-15.5) % Lymphocytes # 0.2 L (1.0-4.8) k/uL APTT (22.0-30.0) sec ABG pH 7.47 H (7.35-7.45) ABG HCO3 30 H (21-25) mmol/L ABG Total CO2 31 H (19-24) mmol/L ABG O2 Saturation 98.8 H (94-97) % Sodium (137-145) mmol/L Potassium (3.5-5.1) mmol/L BUN (9-20) mg/dL Glucose (74-99) mg/dL POC Glucose (mg/dL) 130 H (70-110) mg/dL Total Protein (6.3-8.2) g/dL Albumin (3.5-5.0) g/dL Microbiology - Last 24 Hours (Table) 05/24/23 14:45 CSF Gram Stain - Preliminary Cerebral Spinal Fluid CSF Culture - Preliminary Assessment and Plan Assessment: Acute hypoxemic respiratory failure, requiring intubation and mechanical ventilation, on May 22. Metastatic lung cancer, with brain and skeletal metastasis. Adenocarcinoma of the right upper lobe. Mental status changes, secondary to metabolic/toxic encephalopathy. Acute pulmonary embolism. Chronic anemia. Chronic atrial fibrillation. History of mechanical aortic valve, 2019. History of CAD with previous bypass grafting. History of LV dysfunction, with systolic congestive heart failure. Benign essential hypertension. Hyperlipidemia. History of psoriasis. History of traumatic brain injury. Plan: Plan dated May 27, 2023. I was able to speak to the patient's . She was coming to the hospital with one of her daughters. She has other daughters that are in [place]. We talked about a number of things, including what Mr. Raza's wishes would be, should he find himself in this predicament. She said to me clearly, that he would not want to be on life support. She was coming in to make a decision about comfort care. She asked me how long he would last off the ventilator, and I told her I did not know. I told her once extubated, we would plan on trying to make the patient comfortable, but do nothing to hasten the patient's . She understands that the patient's overall prognosis is extremely poor, given his metastatic lung cancer, with brain, and skeletal metastasis. Labs, x-rays, and medications are all reviewed. The patient remains on propofol, Versed, fentanyl, and IV heparin. Additional recommendations and suggestions are forthcoming. Time with Patient: Greater than 30
[2023-05-27] MEDS: SODIUM ZIRCONIUM CYCLOSILICATE 10 GM PACKET OG-TUBE ONE (12:43)
[2023-05-27 14:45] LABS: Partial Thromboplastin Time 52.7 sec (22.0-30.0)
[2023-05-27] MEDS ORDERED: HEPARIN SODIUM 1,000 UN/ML (10ML VL) IV PRN (15:15)
[2023-05-27] MEDS: HEPARIN SOD,PORK IN 0.45% NACL 25,000 UNIT in 0.45% NACL 1 250ML.BAG IV SCH (15:24)
--- NOTE | 2023-05-27 15:28 | P.PN ---
Subjective Progress Note Date: 05/27/23 Principal diagnosis: Hemoptysis, lung adenocarcinoma In follow-up today patient is seen in the intensive care unit, sedated and ventilated. Cont to require significant amounts of sedatives to remain calm on ventilation. He has had lumbar puncture. Currently pending cytology. Objective - Vital Signs Vital signs: Vital Signs Temp 99 F 05/27/23 12:00 Pulse 67 05/27/23 15:00 Resp 22 05/27/23 15:00 BP 96/70 05/27/23 10:00 Pulse Ox 99 05/27/23 15:00 FiO2 35 05/27/23 15:00 Intake & Output 05/26/23 05/27/23 05/27/23 18:59 06:59 18:59 Intake Total 5596.511 0177.015 1002.810 Output Total 2050 2500 1225 Balance -676.096 -1249.985 -222.190 Weight 79 kg 79 kg Intake: IV 293 286 387 .9NS 160 230 260 .9NS Pressure Bag 33 36 27 Piperacillin-Tazobactam 3 100 20 100 .375 gm In Sodium Chloride 0.9% 100 ml @ 25 mls/hr IVPB Q8HR [facility] Rx# :[id number] Intake, IV Titration 627.904 634.015 324.810 Amount Heparin Sod,Pork in 0.45% 44.997 NaCl 25,000 unit In 0.45 % NaCl 1 250ml.bag @ 12 UNITS/KG/HR 9.036 mls/hr IV .Q24H [facility] Rx#: [id number] Heparin Sod,Pork in 0.45% 189.128 228.739 19.362 NaCl 25,000 unit In 0.45 % NaCl 1 250ml.bag @ 12 UNITS/KG/HR 9.564 mls/hr IV .Q24H [facility] Rx#: [id number] Midazolam HCl 50 mg In 39.15 25.517 15.1 Sodium Chloride 0.9% 40 ml @ 1 MG/HR 1 mls/hr IV .Q24H [facility] Rx#:[id number] Norepinephrine 8 mg In 9.092 62.709 8.822 Sodium Chloride 0.9% 250 ml @ 0.03 MCG/KG/MIN 4. 435 mls/hr IV .Q24H [facility] Rx#:[id number] Piperacillin-Tazobactam 3 100 .375 gm In Sodium Chloride 0.9% 100 ml @ 25 mls/hr IVPB Q8HR [facility] Rx# :[id number] fentaNYL (PF). 1,000 mcg 90.534 100 In Sodium Chloride 0.9% 80 ml @ 0.5 MCG/KG/HR 3. 82 mls/hr IV .Q24H [facility] Rx #:[id number] propofoL 1,000 mg In 300.000 172.053 89.388 Empty Bag 1 bag @ 15 MCG/ KG/MIN 6.876 mls/hr IV . [id number] [facility] Rx#:[id number] propofoL 1,000 mg In 92.138 Empty Bag 1 bag @ 15 MCG/ KG/MIN 6.876 mls/hr IV . [id number] [facility] Rx#:[id number] Oral 297 Tube Feeding 66 330 231 Blood Product 90 Other 60 Output: Urine 2050 2500 1225 Other: Voiding Method Indwelling Catheter Indwelling Catheter Indwelling Catheter ABP, PAP, CO, CI - Last Documented Arterial Blood Pressure 117/50 - Labs CBC & Chem 7: 05/27/23 04:30 05/27/23 04:30 Labs: Abnormal Lab Results - Last 24 Hours (Table) 05/26/23 05/27/23 05/27/23 Range/Units 19:54 04:30 04:30 WBC (3.8-10.6) k/uL RBC (4.30-5.90) m/uL Hgb (13.0-17.5) gm/dL Hct (39.0-53.0) % RDW (11.5-15.5) % Lymphocytes # (1.0-4.8) k/uL APTT 43.4 H (22.0-30.0) sec ABG pH (7.35-7.45) ABG HCO3 (21-25) mmol/L ABG Total CO2 (19-24) mmol/L ABG O2 Saturation (94-97) % Sodium 135 L (137-145) mmol/L Potassium 5.2 H (3.5-5.1) mmol/L BUN 25 H (9-20) mg/dL Glucose 114 H (74-99) mg/dL POC Glucose (mg/dL) 138 H (70-110) mg/dL Total Protein 5.6 L (6.3-8.2) g/dL Albumin 3.0 L (3.5-5.0) g/dL 05/27/23 05/27/23 05/27/23 Range/Units 04:30 04:34 06:06 WBC 2.9 L (3.8-10.6) k/uL RBC 2.77 L (4.30-5.90) m/uL Hgb 7.1 L (13.0-17.5) gm/dL Hct 22.8 L (39.0-53.0) % RDW 16.0 H (11.5-15.5) % Lymphocytes # 0.2 L (1.0-4.8) k/uL APTT (22.0-30.0) sec ABG pH 7.47 H (7.35-7.45) ABG HCO3 30 H (21-25) mmol/L ABG Total CO2 31 H (19-24) mmol/L ABG O2 Saturation 98.8 H (94-97) % Sodium (137-145) mmol/L Potassium (3.5-5.1) mmol/L BUN (9-20) mg/dL Glucose (74-99) mg/dL POC Glucose (mg/dL) 130 H (70-110) mg/dL Total Protein (6.3-8.2) g/dL Albumin (3.5-5.0) g/dL 05/27/23 Range/Units 14:19 WBC (3.8-10.6) k/uL RBC (4.30-5.90) m/uL Hgb (13.0-17.5) gm/dL Hct (39.0-53.0) % RDW (11.5-15.5) % Lymphocytes # (1.0-4.8) k/uL APTT 52.7 H (22.0-30.0) sec ABG pH (7.35-7.45) ABG HCO3 (21-25) mmol/L ABG Total CO2 (19-24) mmol/L ABG O2 Saturation (94-97) % Sodium (137-145) mmol/L Potassium (3.5-5.1) mmol/L BUN (9-20) mg/dL Glucose (74-99) mg/dL POC Glucose (mg/dL) (70-110) mg/dL Total Protein (6.3-8.2) g/dL Albumin (3.5-5.0) g/dL Microbiology - Last 24 Hours (Table) 05/23/23 11:40 Gram Stain - Final Bronchial Washings - Random Bronchial Washings Culture - Final Christal krusei 05/24/23 14:45 CSF Gram Stain - Preliminary Cerebral Spinal Fluid CSF Culture - Preliminary Assessment and Plan (1) Hemoptysis Current Visit: Yes Status: Acute Priority: High Code(s): R04.2 - HEMOPTYSIS SNOMED Code(s): 80375495 (2) Pulmonary embolism Current Visit: Yes Status: Acute Priority: High Code(s): I26.99 - OTHER PULMONARY EMBOLISM WITHOUT ACUTE COR PULMONALE SNOMED Code(s): 14217987 (3) Metastatic non-small cell lung cancer Current Visit: Yes Status: Acute Priority: High Code(s): C34.90 - MALIGNANT NEOPLASM OF UNSP PART OF UNSP BRONCHUS OR LUNG SNOMED Code(s): 910551477 (4) Supratherapeutic INR Current Visit: Yes Status: Resolved Priority: High Code(s): R79.1 - ABNORMAL COAGULATION PROFILE SNOMED Code(s): 896761464 Plan: PE -New Rt lung PE, BLE doppler for baseline-neg for DVT -[place] to be provoked 2/2 malignancy, recent multiple hospitalizations and holding of coumadin last week because of hemoptysis. -Duration of anticoagulation for a provoked PE is irrelevant. The patient has an artificial heart valve and he needs to be on full dose anticoagulation indefinitely. -He continues on heparin drip at this time Artificial heart valve -Patient previously on Coumadin. INR regulation is challenging due to changes in oral intake, malignancy in the GI tract. -Coumadin reversed. Low intensity heparin drip started. -Pending Cardiology recommendations for alternative anticoagulation to coumadin for artificial heart valve (lovenox?) AMS -Repeat MRI brain-mood and behavioral changes-showing several lesions and vasogenic edema. Dexamethasone IV ordered. PPI BID. -Intubated as there were concerns for airway with erratic behavior -Pt behavior symptoms did not improve with steroids, as would be expected if changes were because of brain mets and vasogenic edema. Concern if steroids are contributing so, reduced frequency but, there was no significant change. Xanax changed to IV ativan. IM adjusted freq of pain meds. Unfortunately, no improvements in mental status. Now in ICU intubated and sedated, requiring large amounts of sedatives -Concerns for leptomeningeal metastasis. He is status post LP with collection of CSF. Did confirm with pathology department that that specimen has been received. Pending results. Hemoptysis -recurrent -bronchoscopy performed, reported old blood in the mucosal of the airways, right upper lobe evidence of a large tumor, apical segment totally occluded with the tumor. -Low intensity heparin drip held. -Pending Cardiology recs if lovenox can be used Non-small cell adenocarcinoma, non-squamous, metastatic disease, rapid progression -Pt 1st presented on 04/18 and has since been inpt 2 additional times in the last 3 weeks. He was unable to stay out of the hospital long enough to start treatment. -MRI brain is showing 1.4 cm ring enhancing lesion-3 weeks after prior MRI showing of a 9 mm lesion with no ring enhancement. CT chest is reports significant progression of disease in just 3 weeks. -1st cycle of carbo/alimta given last week. -No significant hematological toxicities secondary to chemo being noted. Pain and anxiety from diagnosis -pt sedated, IV fentanyl We will follow-up with family as soon as we have results of the cytology for recommendations going forward from an Oncology standpoint. Attests: I have seen and examined pt, performed H&P, developed impression and plan of care. Discussed with dictator. Agree with documentation, dictated as a scribe.
[2023-05-27] MEDS: NOREPINEPHRINE 8 MG in SODIUM CHLORIDE 0.9% 250 ML IV SCH (15:36)
[2023-05-27] MEDS: MORPHINE SULFATE 4 MG/ML SYRINGE IVP ONE (16:14)
[2023-05-27] MEDS: MORPHINE SULFATE (100 MG/2 ML) 100 MG in SODIUM CHLORIDE 0.9% 100 ML IV SCH (16:15)
[2023-05-27 16:22] LABS: Prothrombin Time 10.8 sec (10.0-12.5)
[2023-05-27] MEDS: MORPHINE SULFATE 4 MG/ML SYRINGE IV PRN (16:33)
[2023-05-27] MEDS ORDERED: LORazepam 2 MG/ML INJ IV PRN (17:54)
[2023-05-27] MEDS: HALOPERIDOL LACTATE 5 MG/ML 1 ML VIAL IVP PRN (18:17)
[2023-05-27] MEDS: SODIUM CHLORIDE 0.9% IV SCH (19:01)
[2023-05-27] MEDS: MORPHINE SULFATE IV SCH (19:01)
[2023-05-27] MEDS: SCOPOLAMINE 1 MG/72 HR PATCH TRANSDERM STA (20:18)
[2023-05-27 20:26] VITALS: TEMP 96.8
[2023-05-28 02:54] VITALS: BP 97/47; PULSE 82; RESP 9
[2023-05-28] MEDS ORDERED: SODIUM CHLORIDE 0.9% IV SCH (09:00)
[2023-05-28] MEDS ORDERED: MORPHINE SULFATE IV SCH (09:00)
--- NOTE | 2023-05-28 11:53 | P.PN ---
Subjective Progress Note Date: 05/28/23 Principal diagnosis: Respiratory failure. 63-year-old male patient with metastatic pulmonary adenocarcinoma and the patient has a bulky tumor in his chest with extensive adenopathy involving the right hilum and the right paratracheal and subcarinal area the largest portions measuring 8 x 86.3 cm in size in the hilar area and 5.6 x 3.5 cm inside the subcarinal and infrahilar area. There is also lymphadenopathy involving the left hilum other smaller lymph nodes within the mediastinum and the patient has small pleural effusion right more than left along with compressive atelectatic changes and pleural-based nodules in the right and extensive groundglass changes in the left upper lobe with numerous nodular densities up to 16 x 13 mm in size. Smaller nodules also seen in the left lung in addition. In summary, the patient disease is metastatic as the patient also has extensive heterogeneous liver concerning for diffuse metastases and a stain is also enlarged and the p atient has multiple soft tissue masses/lymphadenopathy in the upper abdomen. During his last admission the patient was also found to have a left occipital Enhancing lesion suspicious for [employer] metastases. The patient was admitted to the hospital on 05/12/2023 for shortness of breath and hemoptysis. His hemoptysis was attributed to his metastatic lung cancer and the patient was taken anticoagulation with warfarin and his INR was supratherapeutic. At that time, his INR was reversed, however, the patient in the going back on warfarin as the patient is a mechanical aortic valve and there is no reasonable alternatives to that and were targeting a titer INR control between 2 and 2.5. He was supposed to follow-up with oncology on outpatient basis. In addition oncology saw him during his hospital stay and thought that the brain lesion was small and there was no need for radiation this point in time. Following his discharge, the patient encounter ongoing hemoptysis which never stopped since his discharge. He came into the hospital for further advice. Total amount of blood was probably in the form of 10 mL overnight mixed with mucus. No blood clots. No worsening shortness of breath. His chronically dyspneic and is also having hypoxic respiratory failure maintained on oxygen. He has atrial fibrillation, coronary artery disease, and previous aortic valve replacement with a mechanical valve. I did see the patient during his last hospital stay and the patient was thought to be clinically stable for discharge to be followed up by oncology. Final decision on treatment for his lung cancer has not been made as the patient is awaiting PDL 1 and NGS analysis prior to quitting for any further treatment. He was supposed to be seen by medical oncology early next week. For now, the patient's echoes at 8.5, hemoglobin is 8.2 which is stable since his discharge. INR is at 2.7 with a PT of 27. BUN is a 50 with a creatinine of 1.01 and sodium level is 128. His oxygenation is stable at 3 L with a pulse ox of 99%. Computed tomography scan of the chest was again ordered The patient is seen today 05/20/2023 in follow-up on the regular medical floor. He is awake and alert in no acute distress. He denies any further hemoptysis. He has some right-sided chest discomfort on inhalation. Computed tomography scan of the chest from last evening shows overall significant progression of metastatic disease with extensive soft tissue metastasis/nodes in the neck and chest showing appreciable increase in size. There is worsening, lumbar mediastinal and hilar soft tissue masses/adenopathy resultant slightly worsened narrowing of branches of the right pulmonary artery and bronchi in the right hilum. New pulmonary emboli in the right lower lobe artery, segmental and sent segmental branches. Interval worsening of opacity in the right upper lobe, concerning for spread of tumor with possible superimposed pneumonitis. This obscures some the lung nodules evident before. There are also enlarging nodules in the superior segment of the right lower lobe. Small bilateral pleural effusions. Improved groundglass opacities and multiple nodules in the left lung, with residual nodularity. Worsening extensive upper abdominal metastatic disease, with significant enlargement of metastasis/nodes as above. Doppler of the lower extremity was negative for DVT. MRI of the brain reveals a 1.4 cm ring enhancing lesion with some mild vasogenic edema adjacent right frontal lobe. Suspicious for metastatic lesion. White count 8.2. Hemoglobin 7.8. INR 3.6. Sodium 134. Potassium 4.3. Bicarb 23. BUN 7. Creatinine 0.8. Glucose 99. He remains on DuoNeb inhalations, Symbicort antibiotics in the form of ceftriaxone. He is continued on Decadron 4 mg IVP every 6 hours. The patient is seen today May 21, 2023 and follow-up on the regular medical floor. He is sitting up in a chair at the bedside. Awake and alert in no acute distress. Denies any worsening shortness of breath, cough or congestion. No hemoptysis. He remains on DuoNeb ventilations, Symbicort, Decadron. Antibiotics in the form of ceftriaxone. INR 1.1. The plan is for PICC line placement and to be initiated on carboplatin today. He remains on a heparin drip. The patient is seen today May 22, 2023 in follow-up on the regular medical floor. He is currently resting in bed. He did have some issues with agitation and combativeness requiring Haldol and soft restraints. special needs babysitter is at the bedside. He is maintaining good O2 saturation in the mid 90s on room air. He has been afebrile. Hemodynamically stable. His hemoglobin is 6.4 and he is receiving 1 unit of packed red blood cells. Platelets 298. White count 8.4. INR 1.2. Sodium 139. Potassium 4.3. Bicarb 21. BUN 12. Creatinine 0.7. Glucose 124. He remains on a heparin drip. Remains on antibiotics in the form of ceftriaxone. Decadron 4 mg IVP every 8 hours. Continued on DuoNeb ventilations, Symbicort. Normal saline at 75 MLS per hour. He did receive carboplatin and Alimta yesterday. Patient was reevaluated today on May 23/2024, patient decompensated this morning, he became extremely short of breath, patient was also becoming more and more combative, he was having more and more episodes of hemoptysis, and I recommended transferring the patient to the ICU. Patient was placed on multiple medications to calm him down, however he continued to deteriorate and he was developing more and more shortness of breath and more desaturations. Hence I was notified about the patient and I recommended immediate intubation. Patient was already transferred to the ICU at the time. Present patient is intubated and mechanically ventilated, he is on assist-control rate of 18 tidal volume 400 FiO2 35% and PEEP of 5 ABG showed a pO2 of more than 400 on 100% pCO2 44 pH of 7.31. Patient is on propofol 70 mcg/kg/min norepinephrine 0.04 mcg/kg/min Fentanyl at 1 mcg/kg/h he is also 1.9 normal saline at [facility], receiving ceftriaxone and receiving Decadron. Went ahead and performed bronchoscopy on patient, there was no active bleeding noted, there is definitely a large tumor involving the apical segment of the right upper lobe, but no active bleeding in the right upper lobe was noted. Established a radial arterial line for hemodynamic monitoring, discussed his condition with the , and made aware of the severity of his illness, she seems to be reasonable, and she clearly stated to me that if his condition gets any worse and hopeless, she will definitely consider comfort care measures at that point. WBC count today is 10.9 hemoglobin 7.9. Follow-up ABG this morning showed a pO2 of 205 pCO2 34 pH of 7.47, this was on 50% FiO2 basic metabolic profile is normal renal profile is normal chest x-ray showed mild midlung infiltrate right side, possible atelectasis Patient with presented today on 05/24/2023, patient remains in the ICU, intubated and mechanically ventilated, he is on assist-control rate of 18 tidal volume 400 FiO2 35% PEEP of 5 ABG showed a pO2 of 106 pCO2 64 pH of 7.29, hence his rate was increased up to 22, and tidal volume increased to 450. Patient was on Ni mbex last night, and this was discontinued this morning, he is on norepinephrine at 0.03 mcg/kg/min Fentanyl 2 mcg/kg/h propofol 70 mcg/kg/min is also on vital HP at 30 cc/h. Remains empirically on Zosyn, patient has good urine output, he is scheduled to have lumbar puncture today by anesthesia. Chest x-ray shows endotracheal tube in the proper position, and orogastric tube is also in the proper position, opacity noted in the right upper lobe and right lower lobe related to his recent episode of hemoptysis and right upper lobe malignancy bronchial washings/cultures are still pending Gram stain from the washing is showing mostly few yeast. Blood cultures from the remain negative. WBC count is 8 hemoglobin 7.8 basic metabolic profile is normal and renal profile is normal Patient evaluated today on 05/25/2023, remains in the ICU, intubated and mechanically ventilated he is on assist-control rate of 22 tidal volume 450 FiO2 35% PEEP of 5 ABG showed a pO2 of 123 pCO2 48 pH of 7.42 hence no changes were made in his ventilator settings. Patient is requiring significant amount of s edation, in spite of being on relatively high-dose of fentanyl at 2 mcg/kg/h and relatively high-dose of propofol at 75 mcg/kg/min, patient is still getting out of bed, restless agitated, and needs close monitoring. Today I added Versed at 5 mg/h, and hopefully we could go down on the propofol and on the fentanyl. Patient received Haldol he also received Seroquel, and it is taking a lot of medication to keep him calm and adequately ventilated. Haldol was added and Seroquel was increased to 50 mg twice daily. Patient underwent lumbar puncture and the results of which are pending. Patient is being followed by neurology. Preliminary finding on the spinal fluid seems to be normal. Patient was placed back on anticoagulation therapy, his WBC count is 7.4 hemoglobin 7.2. Platelets are 2 99,000 Basic metabolic profile is normal renal profile is normal. Evaluated today on 05/26/2023, remains in the ICU, intubated and mechanically ventilated, on assist-control rate of 22 tidal volume 450 FiO2 35% PEEP of 5. ABG showed a pO2 of 116 pCO2 45 pH of 7.46, hence FiO2 was Down to 30%. Patient remains on propofol at 60 mcg/kg/min Fentanyl at 1 mcg/kg/h Versed 3 mg/h and in spite of all of this the patient gets extremely restless agitated easily, and becomes asynchronous with the ventilator. Patient is off norepinephrine at present, presently hemodynamically stable and not requiring pressors. I am having a daily difficulty assessing the patient's mental status as with slight lowering of his sedation, the patient gets extremely agitated and restless. Spinal fluid workup came back negative and nondiagnostic. Chest x-ray showed very minimal questionable right perihilar infiltrate, otherwise unremarkable. Cultures from BAL are negative and nondiagnostic WBC count today 6.5 hemoglobin is 7.4. Platelets are 293 basic metabolic profile is normal and renal profile is normal Progress note dated May 27, 2023. This is a 63-year-old male who was seen in the intensive care unit, room 264. The patient was admitted to the hospital on May 19. The patient has a history of metastatic lung cancer, with brain metastasis, and skeletal metastasis. He was also diagnosed with a pulmonary embolism. The patient was intubated for respiratory failure and hemoptysis on May 22. He remains on mechanical ventilator, with settings of volume assist-control, rate 22, tidal volume 450, FiO2 35%, and PEEP of 5. Blood gases show pO2 of 106, pCO2 of 41, and a pH of 7.47. This blood gas is consistent with a mild metabolic alkalosis. The patient is on saline at 30 cc an hour, propofol at 60 mcg/kg/min, Versed at 2 mg an hour, fentanyl at 1 mcg/kg/h, heparin via weight-based protocol, and on and off of norepinephrine, for blood pressure support. The patient is receiving vital high-protein at 33 cc an hour which is goal. White count is 2.9, hemoglobin 7.1, hematocrit 22.8, and platelet count 244,000. PTT is 43.4. Sodium 135, potassium 5.2, chlorides 104, CO2 27, BUN 25, and creatinine 0.73. Albumin is 3. Glucose is 130. Microbiologic sampling is thus far negative. There is some Christal in the sputum. Chest x-ray shows a right sided lung mass/infiltrate. Progress note dated May 28, 2023. 63-year-old male, seen in room 264. He was admitted to the hospital May 19, and has a history of metastatic lung cancer, with brain and skeletal metastasis. He was also diagnosed with a pulmonary embolism. I had a long conversation with the yesterday. The patient would not want to be on life support, and she was going to come in and see the patient, with her daughter, and make a decision about comfort care. Currently, he is on comfort care, and is currently on room air, morphine sulfate drip at 60 mg an hour, and Versed at 6 mg an hour. No labs or x-rays today. Objective - Vital Signs Vital signs: Vital Signs Temp 96.8 F L 05/27/23 20:00 Pulse 82 05/28/23 02:00 Resp 9 L 05/28/23 02:00 BP 97/47 05/28/23 02:00 Pulse Ox 96 05/28/23 02:00 FiO2 35 05/27/23 16:12 Intake & Output 05/27/23 05/28/23 05/28/23 18:59 06:59 18:59 Intake Total 1201.253 649.8 195 Output Total 1225 2350 Balance -23.747 -1700.2 195 Weight 79 kg Intake: IV 413 .9NS 280 .9NS Pressure Bag 33 Piperacillin-Tazobactam 3 100 .375 gm In Sodium Chloride 0.9% 100 ml @ 25 mls/hr IVPB Q8HR ROB Rx# :[id number] Intake, IV Titration 497.253 649.8 195 Amount Heparin Sod,Pork in 0.45% 19.362 NaCl 25,000 unit In 0.45 % NaCl 1 250ml.bag @ 12 UNITS/KG/HR 9.564 mls/hr IV .Q24H ROB Rx#: [id number] Heparin Sod,Pork in 0.45% 9.596 NaCl 25,000 unit In 0.45 % NaCl 1 250ml.bag @ 23. 51 UNITS/KG/HR 18.573 mls /hr IV .[id number] ROB Rx#: [id number] Midazolam HCl 50 mg In 28.916 72.8 Sodium Chloride 0.9% 40 ml @ 1 MG/HR 1 mls/hr IV .Q24H ROB Rx#:[id number] Morphine Sulfate (100 mg/ 51.952 2 ml) 100 mg In Sodium Chloride 0.9% 100 ml @ 1 MG/HR 1.02 mls/hr IV . Q24H ROB Rx#:[id number] Morphine Sulfate (100 mg/ 577 195 2 ml) 200 mg In Sodium Chloride 0.9% 180 ml @ 1 MG/HR 1 mls/hr IV .Q24H ROB Rx#:[id number] Norepinephrine 8 mg In 8.822 Sodium Chloride 0.9% 250 ml @ 0.03 MCG/KG/MIN 4. 435 mls/hr IV .Q24H ROB Rx#:[id number] fentaNYL (PF). 1,000 mcg 142.529 In Sodium Chloride 0.9% 80 ml @ 0.5 MCG/KG/HR 3. 82 mls/hr IV .Q24H ROB Rx #:[id number] propofoL 1,000 mg In 89.388 Empty Bag 1 bag @ 15 MCG/ KG/MIN 6.876 mls/hr IV . [id number] ROB Rx#:[id number] propofoL 1,000 mg In 146.688 Empty Bag 1 bag @ 15 MCG/ KG/MIN 6.876 mls/hr IV . [id number] ROB Rx#:[id number] Tube Feeding 231 Other 60 Output: Urine 1225 2350 Other: Voiding Method Indwelling Catheter Indwelling Catheter ABP, PAP, CO, CI - Last Documented Arterial Blood Pressure 144/76 - Exam No acute distress, currently on room air. Seems comfortable. HEENT examination is grossly unremarkable. Neck supple. Full range of motion. No adenopathy thyromegaly or neck vein distention. Cardiovascular examination reveals regular rhythm rate. S1-S2 normal. No S3 or S4. No discernible murmur noted. Heart sounds are distant. Heart rate 82 bpm. Lungs reveal mild scattered rhonchi. No wheezes or crackles. Breath sounds are equal bilaterally. Saturations are 92 %. Abdomen soft, with bowel sounds. No masses. Extremities are intact. No cyanosis clubbing or edema. Skin is without rash or lesion. Neurologic examination cannot be adequately assessed at this time. - Labs CBC & Chem 7: 05/27/23 04:30 05/27/23 04:30 Labs: Abnormal Lab Results - Last 24 Hours (Table) 05/27/23 Range/Units 14:19 APTT 52.7 H (22.0-30.0) sec Microbiology - Last 24 Hours (Table) 05/24/23 14:45 CSF Gram Stain - Preliminary Cerebral Spinal Fluid CSF Culture - Preliminary 05/23/23 11:40 Gram Stain - Final Bronchial Washings - Random Bronchial Washings Culture - Final Christal krusei Assessment and Plan Assessment: Acute hypoxemic respiratory failure, requiring intubation and mechanical ventilation, on May 22. Patient extubated on May 27, to comfort care. Metastatic lung cancer, with brain and skeletal metastasis. Adenocarcinoma of the right upper lobe. Mental status changes, secondary to metabolic/toxic encephalopathy. Acute pulmonary embolism. Chronic anemia. Chronic atrial fibrillation. History of mechanical aortic valve, 2019. History of CAD with previous bypass grafting. History of LV dysfunction, with systolic congestive heart failure. Benign essential hypertension. Hyperlipidemia. History of psoriasis. History of traumatic brain injury. Plan: Plan dated May 27, 2023. I was able to speak to the patient's . She was coming to the hospital with one of her daughters. She has other daughters that are in [place]. We talked about a number of things, including what Mr. Raza's wishes would be, should he find himself in this predicament. She said to me clearly, that he would not want to be on life support. She was coming in to make a decision about comfort care. She asked me how long he would last off the ventilator, and I told her I did not know. I told her once extubated, we would plan on trying to make the patient comfortable, but do nothing to hasten the patient's . She understands that the patient's overall prognosis is extremely poor, given his metastatic lung cancer, with brain, and skeletal metastasis. Labs, x-rays, and medications are all reviewed. The patient remains on propofol, Versed, fentanyl, and IV heparin. Additional recommendations and suggestions are forthcoming. Plan dated May 28, 2023. I had a long conversation with the yesterday. She stated unequivocally, that her , would not want to be on life support. She came into the hospital yesterday, with her daughter, and made her , a DO NOT RESUSCITATE patient, and in addition, suggested that we move to comfort care. Currently, the patient is on room air. He is getting morphine sulfate at 60 mg an hour. He is also getting Versed at 6 mg an hour. Unnecessary medications have been discontinued. The patient's prognosis is obviously very poor. Additional recommendations and suggestions are forthcoming. Time with Patient: Less than 30
--- NOTE | 2023-05-28 12:07 | P.DS ---
Providers Date of admission: 05/19/23 08:17 Expected date of discharge: 05/28/23 Attending physician: Jaycob New Consults: 05/19/23 08:17 Consult Physician Routine Consulting Provider: Cher Nicole Consult Reason/Comments: Lung CA Do you want consulting provider notified?: Yes Consult Physician Routine Consulting Provider: Ander Watson Consult Reason/Comments: Hemoptysis, lung cancer Do you want consulting provider notified?: Yes 05/19/23 09:05 Consult Physician Routine Consulting Provider: Ebenezer Antonio Consult Reason/Comments: A. 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 Patient had chest CT showing progression of meta static lymph nodes in the neck chest and upper abdomen. There is also concern for bronchial invasion and with a right upper lobe infiltrate. He was admitted to the hospital with a consult placed to hematology with plans to undergo induction chemotherapy and radiation. Patient will have brain MRI completed today. He also reports not having a bowel movement. Blood work today shows white count 8.21, hemoglobin 7.8, sodium 134, BUN 7.1, creatinine 0.8. 05/21/2023 Patient is monitored to the medical floor he is being followed closely by oncology with plans for induction chemotherapy today. Not yet had a bowel movement but had not received MiraLAX we will try that first before giving an enema or stronger laxative. Abdomen is softer today and he does have positive normoactive bowel sounds throughout. Patient had a PICC line inserted today. Brain MRI shows a 1.4 cm ring-enhancing lesion with some mild vasogenic edema adjacent to the right frontal lobe findings are concerning for metastatic lesion he has been started on IV dexamethasone by oncology. Recommendations were made to hold warfarin at this time and INR was reversed patient was given the 5 mg dose of vitamin K. His INR today is 1.1 and he has been initiated on an IV heparin drip at this time. 05/22/2023 Patient is evaluated today resting in bed he is currently in 2-point restraints his is sitting at the bedside. Patient did receive his first dose of IV chemotherapy yesterday he is also on Decadron for the vasogenic edema. He was significantly agitated last night he did get out of bed fell in the hallway he was restrained and did require sedation to calm down. We would currently recommend to stop the Xanax decrease the frequency of the oxycodone and avoid Dilaudid if possible. Patient will be given Seroquel at at bedtime and also daily as needed for acute agitation. Patient continues on a course of IV ceftriaxone. He is also on IV heparin with warfarin being held. Status post chemo his labs today are showing a hemoglobin of 7.4, platelet count of 298, white count of 8.41. His electrolytes are within normal limits. 05/23. Patient seen and examined. Patient currently intubated and sedated. Labs at this morning showed WBC 10.9, hemoglobin 7.9, platelet count 297 05/24. Patient seen and examined. Continues to be intubated. Lab work done showed WBC 8, hemoglobin 7.8, platelet count 283, sodium 1:30, potassium 5.1, magnesium 2.3, total bilirubin 0.5, 05/25. Patient seen and examined. Continues to be intubated. Patient had lumbar puncture done. Lab work done that showed WBC 1.4, hemoglobin 7.2, platelet count 299, sodium 138, potassium 4.6, BUN 18, creatinine 0.64 05/26. Patient seen and examined. Lab work done this morning showed WBC 6.5, hemoglobin 7.4, platelet count 293, sodium 138, potassium 5, BUN 23, creatinine 0.64. Currently on Versed, fentanyl and propofol. CSF fluid analysis reviewed, cytology pending. 05/27/23: Dr Martinez Assumed care: Patient seen and evaluated at bedside, patient remains intubated, sedated, patient sedated with propofol, continue to remain on norepinephrine, medical ICU team following, patient remains on broad-spectrum antibiotics including Zosyn,. Patient is on IV heparin due to history of atrial fibrillation continue metoprolol and amiodarone. Prognosis continues to remain guarded secondary to remain guarded secondary to multiple comorbidities potassium noted to be 5.2 we will follow-up. 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 * History of mechanical aortic valve, on oral anticoagulation prior to hospitalization * Acute on chronic anemia * Coronary artery disease history of CABG * History of essential hypertension * History of psoriasis * History of obstructive lung disease with acute exacerbation * History of chronic cancer related pain * Patient transition to comfort measures, 05/28/2023 at 9:54 AM Patient Condition at Discharge: Undetermined Plan - Discharge Summary Discharge Rx Participant: No New Discharge Prescriptions: Discontinued Baclofen 5 mg PO BID@0800,1300 Metoprolol Tartrate [Lopressor] 50 mg PO BID@0800,2000 Prochlorperazine [Compazine] 10 mg PO DAILY@0800 Warfarin [Coumadin] 7.5 mg PO DAILY@1999 Folic Acid 1 mg PO DAILY 30 Days #30 tab Budesonide-Formot 160-4.5 Mcg [Symbicort 160-4.5 Mcg Inhaler] 2 puff INHALATION RT-BID 30 Days #1 each Aspirin [Children's Aspirin] 81 mg PO DAILY@0800 Albuterol Inhaler [Ventolin Hfa Inhaler] 2 puff INHALATION RT-Q6H PRN PRN Reason: Shortness Of Breath Or Wheezing Pantoprazole [Protonix] 40 mg PO DAILY@0800 fentaNYL 25MCG/HR PATCH [Duragesic 25MCG/HR] 1 patch TOPICAL Q72H Furosemide [Lasix] 40 mg PO DAILY@0800 oxyCODONE HCL [oxyCODONE HCL (IR)] 5 mg PO Q6H PRN PRN Reason: Severe Breakthrough Pain HYDROcodone/APAP 10-325MG [[place] 10-325] 1 tab PO Q4HR PRN PRN Reason: Pain Follow up Appointment(s)/Referral(s): Kyle Benton, NETTIE [Family Provider] - 1-2 days Discharge Disposition: - Preliminary Cause of Preliminary Cause of : Metastatic lung cancer
--- NOTE | 2023-05-30 15:19 | CDI ---
Documentation Clarification Form Date: 05/30/2023 02:52:52 PM From: Eliana Dhillon RN, CCDS Email: [email or web address] Admit Date: 05/19/2023 08:17:00 AM Patient Name: Jaime Raza Visit Number: [id number] Discharge Date: 05/28/2023 03:36:00 PM ATTENTION: The Clinical Documentation Specialists (CDI) and [facility] Coding Staff appreciate your assistance in clarifying documentation. Please respond to the clarification below the line at the bottom and electronically sign. The CDI & [facility] Coding staff will review the response and follow-up if needed. Please note: Queries are made part of the Legal Health Record. If you have any questions, please contact the author of this message via ITS. Dr. Eddie Calderon The Registered Dietitian assessment on 05/20 indicates this patient meets criteria for severe chronic malnutrition. Based on this information and the findings below, is there an additional diagnosis that is clinically appropriate for this patient? History/Risk Factors: metastatic lung adenocarcinoma with intra-abdominal and brain metastases, A fib and mechanical aortic valve on Coumadin, HTN, CHF and HLD. Presented with worsening shortness of breath and hemoptysis. Clinical Indicators: BMI: 25.9 05/20 Consult Assessment: Severe chronic malnutrition related to decreased caloric intake <75% and 13% involuntary weight loss in <6 months. Refused to eat, then NPO after intubation with EN support for nutrition. Weight loss of 11.8 kg in 6 months Treatment: Supplements: Ensure enlive TID PPN: Vital high protein at 33-43mL/hr Is there an additional diagnosis that is clinically appropriate for this patient? [ ] Mild Protein-Calorie Malnutrition [ ] Moderate Protein-Calorie Malnutrition [ x] Severe Protein-Calorie Malnutrition [ ] No additional diagnosis/Not clinically significant [ ] Other condition, please specify [ ] Unable to Determine MTDD
--- NOTE | 2023-05-30 15:59 | CDI ---
Documentation Clarification Form Date: 05/30/2023 03:28:54 PM From: Eliana Dhillon RN, CCDS Email: [email or web address] Admit Date: 05/19/2023 08:17:00 AM Patient Name: Jaime Raza Visit Number: [id number] Discharge Date: 05/28/2023 03:36:00 PM ATTENTION: The Clinical Documentation Specialists (CDI) and [facility] Coding Staff appreciate your assistance in clarifying documentation. Please respond to the clarification below the line at the bottom and electronically sign. The CDI & [facility] Coding staff will review the response and follow-up if needed. Please note: Queries are made part of the Legal Health Record. If you have any questions, please contact the author of this message via ITS. Dr. Kvng Palomino Norepinephrine was ordered on 05/22. Hypotension requiring Norepinephrine is documented in the 05/24 Cardiology note. Additional clarification regarding this diagnosis is requested. History/Risk Factors: Metastatic adenocarcinoma of lung with brain and skeletal metastases. Presented with shortness of breath and hemoptysis. Clinical Indicators: 05/19 Pulmonary consult: "Episodic hemoptysis due to his underlying lung cancer probably invading the right upper lobe bronchus which probably is the source of bleed in addition to intake of anticoagulation with Warfarin." 05/23 Pulmonary note: "Patient is on Propofol 70 mcg/kg/min Norepinephrine 0.04 mcg/kg/min." 05/24 Cardiology note: "He was in atrial fibrillation with rapid ventricle response and had hypotension requiring Norepinephrine." 05/22 VS: BP 77/42, HR 147 05/23 arterial BP: 99/44 05/24 arterial BP: 84/46-76/43 05/26 arterial BP: 89/40 05/22 Hgb 6.4 05/22 PTT 96.1-59.3-24.4 Treatment: Intubation and mechanical ventilation; IV Norepinephrine titrated 05/22-05/27; 1-unit PRBC's on 05/22; 0.9 NS @75mL/hr 05/19-05/23 Can the hypotension be further specified? [ ] Hypotension due to hypovolemic shock [ ] Hypotension due to hemorrhagic shock [ ] Hypotension due to cardiogenic shock [ ] Other Condition, please specify [ x ] Unable to determine MTDD
== END 2023-05-28 15:36 | disposition expired | DRG 207 ==
LOC: EC 07:02 → 5NMEDONC 08:17 → 2SICU 05-22 19:42
PROVIDERS: ADMIT Hospitalist; ATTEND Hospitalist
PROC: 02HV33Z Insertion of Infusion Device into Superior Vena Cava, Percutaneous Approach (ICD-10-PCS; 2023-05-21)
PROC: 30233N1 Transfusion of Nonautologous Red Blood Cells into Peripheral Vein, Percutaneous Approach (ICD-10-PCS; 2023-05-22)
PROC: 5A1955Z Respiratory Ventilation, Greater than 96 Consecutive Hours (ICD-10-PCS; 2023-05-23)
PROC: 03HY32Z Insertion of Monitoring Device into Upper Artery, Percutaneous Approach (ICD-10-PCS; 2023-05-23)
PROC: 4A133B1 Monitoring of Arterial Pressure, Peripheral, Percutaneous Approach (ICD-10-PCS; 2023-05-23)
PROC: 4A133J1 Monitoring of Arterial Pulse, Peripheral, Percutaneous Approach (ICD-10-PCS; 2023-05-23)
PROC: 0B9F8ZX Drainage of Right Lower Lung Lobe, Via Natural or Artificial Opening Endoscopic, Diagnostic (ICD-10-PCS; 2023-05-23)
PROC: 0B9C8ZX Drainage of Right Upper Lung Lobe, Via Natural or Artificial Opening Endoscopic, Diagnostic (ICD-10-PCS; 2023-05-23)
PROC: 0B9D8ZX Drainage of Right Middle Lung Lobe, Via Natural or Artificial Opening Endoscopic, Diagnostic (ICD-10-PCS; 2023-05-23)
PROC: 0BH18EZ Insertion of Endotracheal Airway into Trachea, Via Natural or Artificial Opening Endoscopic (ICD-10-PCS; 2023-05-23)
PROC: 3E033XZ Introduction of Vasopressor into Peripheral Vein, Percutaneous Approach (ICD-10-PCS; 2023-05-23)
PROC: 0D9670Z Drainage of Stomach with Drainage Device, Via Natural or Artificial Opening (ICD-10-PCS; 2023-05-23)
PROC: 009U3ZX Drainage of Spinal Canal, Percutaneous Approach, Diagnostic (ICD-10-PCS; principal; 2023-05-24)
PROC: 3E0G76Z Introduction of Nutritional Substance into Upper GI, Via Natural or Artificial Opening (ICD-10-PCS; 2023-05-24)
DX: C34.11 Malignant neoplasm of upper lobe, right bronchus or lung (principal); G93.6 Cerebral edema; I26.99 Other pulmonary embolism without acute cor pulmonale; G92.8 Other toxic encephalopathy; J96.21 Acute and chronic respiratory failure with hypoxia; E43 Unspecified severe protein-calorie malnutrition; J18.9 Pneumonia, unspecified organism; B37.89 Other sites of candidiasis; E87.3 Alkalosis; I42.8 Other cardiomyopathies; D68.32 Hemorrhagic disorder due to extrinsic circulating anticoagulants; C78.4 Secondary malignant neoplasm of small intestine; C78.02 Secondary malignant neoplasm of left lung; C79.89 Secondary malignant neoplasm of other specified sites; C79.51 Secondary malignant neoplasm of bone; Z51.5 Encounter for palliative care; Z66 Do not resuscitate; D63.8 Anemia in other chronic diseases classified elsewhere; Z99.81 Dependence on supplemental oxygen; Z95.2 Presence of prosthetic heart valve; C79.31 Secondary malignant neoplasm of brain; I50.22 Chronic systolic (congestive) heart failure; C78.7 Secondary malignant neoplasm of liver and intrahepatic bile duct; J44.1 Chronic obstructive pulmonary disease with (acute) exacerbation; J44.0 Chronic obstructive pulmonary disease with (acute) lower respiratory infection; I48.21 Permanent atrial fibrillation; E87.1 Hypo-osmolality and hyponatremia; R04.2 Hemoptysis; I95.9 Hypotension, unspecified; I11.0 Hypertensive heart disease with heart failure; Z91.128 Patient's intentional underdosing of medication regimen for other reason; E86.0 Dehydration; G89.3 Neoplasm related pain (acute) (chronic); F43.10 Post-traumatic stress disorder, unspecified; T50.996A Underdosing of other drugs, medicaments and biological substances, initial encounter; F10.91 Alcohol use, unspecified, in remission; M54.42 Lumbago with sciatica, left side; L40.9 Psoriasis, unspecified; T45.515A Adverse effect of anticoagulants, initial encounter; E86.1 Hypovolemia; E78.5 Hyperlipidemia, unspecified; Z68.27 Body mass index [BMI] 27.0-27.9, adult; Z79.01 Long term (current) use of anticoagulants; Z95.1 Presence of aortocoronary bypass graft; Z79.82 Long term (current) use of aspirin; Z79.899 Other long term (current) drug therapy; Z79.891 Long term (current) use of opiate analgesic; Z79.51 Long term (current) use of inhaled steroids; Z88.6 Allergy status to analgesic agent; Z88.8 Allergy status to other drugs, medicaments and biological substances; Z87.891 Personal history of nicotine dependence; Z87.820 Personal history of traumatic brain injury; Z92.21 Personal history of antineoplastic chemotherapy; Z78.1 Physical restraint status; Z86.79 Personal history of other diseases of the circulatory system; Z86.711 Personal history of pulmonary embolism
CPT/HCPCS: 36415; 36573; 36600; 70553; 71045; 71046; 71260; 80048; 80053; 82805; 82945; 83605; 83735; 84145; 84157; 85025; 85027; 85610; 85730; 86850; 86900; 86901; 86920; 87040; 87070; 87102; 87205; 87449; 87496; 87498; 87502; 87529; 87634; 87635; 87798; 88108; 88305; 89050; 93005; 93970; 94002; 94003; 94640; 94760; 96361; 96365; 96366; 96367; 96368; 96375; 96376; 99285